=== PATIENT | male | born 1965 ===

== ENCOUNTER 2016-10-15 10:15 | Inpatient (IN) | payer MEDICARE, MEDICAID ==
[2016-10-15 10:16] VITALS: BMI 25.0
--- NOTE | 2016-10-15 11:15 | ED PDOC ---
HPI: General Adult Time Seen by Provider: 10/15/16 10:30 Chief Complaint (Nursing): Weakness/Neurological Deficit Chief Complaint (Provider): generalized weakness History Per: Patient History/Exam Limitations: no limitations Onset/Duration Of Symptoms: Days (x 3) Have you had recent travel within the past 21 days to any of the following countries: [place], [place], [place] or [place]?: No Additional Complaint(s): Akash Appiah is a 51 year old male, with a previous medical history of diabetes, anemia, nephrocalcinosis and hypertension, who presents to the ED for the evaluation of generalized body aches associated with light sensitivity and fevers of 102.8 after receiving dialysis 3 days ago. Patient reports having a herograft inserted 7 days prior (Tuesday) and started dialysis 3 days after ( Tuesday) insertion. Patient denies any chest pain, nausea or vomiting. PMD: Dr. Phillip Past Medical History Reviewed: Historical Data, Nursing Documentation, Vital Signs Vital Signs: Last Vital Signs Temp 99.8 F H 10/15/16 10:20 Pulse 106 H 10/15/16 10:20 Resp 20 10/15/16 10:20 BP 142/83 10/15/16 10:20 Pulse Ox 97 10/15/16 11:24 - Medical History PMH: Anemia, Anxiety, Arthritis, Atrial Fibrillation, Cardia Arrhythmia, Depression, Diabetes (type II), Gastritis, GERD, HTN, Hypercholesterolemia, Kidney Stones, Osteoporosis, Peripheral Edema, End Stage Renal Disease, Chronic Kidney Disease, Sleep Apnea Denies: CHF, Fractures, Hypothyroidism - Surgical History Surgical History: Appendectomy, Endoscopy - Family History Family History: States: Hypertension - Home Medications Home Medications: Ambulatory Orders Medication Instructions Recorded Acetaminophen/Oxycodone Hydr 1 tab PO Q6H PRN 05/24/16 [Percocet 10/325 mg Tab] Ammonium Lactate 12% [Lac-Hydrin 1 appl TOP BID 05/24/16 12% Lotion (225 g)] Apixaban [Eliquis] 2.5 mg PO BID 05/24/16 Atorvastatin [Lipitor] 20 mg PO HS 05/24/16 Clopidogrel [Plavix] 75 mg PO DAILY 05/24/16 Esomeprazole Magnesium [Nexium] 40 mg PO DAILY 05/24/16 Febuxostat [Uloric] 40 mg PO DAILY 05/24/16 Megestrol Acetate [Megace] 5 ml PO Q6H 05/24/16 Minoxidil 5 mg PO BID 05/24/16 [id number] Ethyl Esters 1 GM 1 gm PO BID 05/24/16 [Lovaza] Sevelamer Carbonate [Renvela] 2,400 mg PO TID 05/24/16 Tamsulosin [Flomax] 0.4 mg PO DAILY 05/24/16 Vitamin B Complex/Vit C/Folic 1 tab PO DAILY 05/24/16 [Nephro-Garcia] Alprazolam [Xanax] 0.5 mg PO TID PRN 07/19/16 Insulin Aspart, Recombinant 5 unit SC TID 07/19/16 [Novolog] Insulin Detemir [Levemir] 20 unit SC HS 07/19/16 PARoxetine [Paxil] 10 mg PO DAILY 07/19/16 Ropinirole HCl [Requip] 4 mg PO BID 10/15/16 Verapamil HCl [Verapamil Sr] 120 mg PO DAILY 10/15/16 - Allergies Allergies/Adverse Reactions: Allergies Allergy/AdvReac Type Severity Reaction Status Date / Time hydromorphone HCl Allergy WHEEZING Verified 12/31/15 18:30 [From Dilaudid] propoxyphene napsylate Allergy RASH Verified 12/31/15 18:30 [From Darvocet-N] vancomycin AdvReac RASH Verified 12/31/15 18:30 Review of Systems ROS Statement: Except As Marked, All Systems Reviewed And Found Negative Constitutional: Positive for: Fever, Other (body aches) Gastrointestinal: Negative for: Nausea, Vomiting, Diarrhea Physical Exam - Reviewed Nursing Documentation Reviewed: Yes Vital Signs Reviewed: Yes - Physical Exam Appears: Positive for: Well, Non-toxic, No Acute Distress Head Exam: Positive for: ATRAUMATIC, NORMAL INSPECTION, NORMOCEPHALIC Skin: Positive for: Normal Color, Warm, Dry Neck: Positive for: Normal, Painless ROM, Supple Cardiovascular/Chest: Positive for: Murmur (S1 S2 3/6) Respiratory: Positive for: CNT, Normal Breath Sounds Gastrointestinal/Abdominal: Positive for: Normal Exam, Bowel Sounds, Soft. Negative for: Tenderness Extremity: Positive for: Normal ROM, Tenderness, Other (left arm at graft site mildly erythematous and tender to touc. Discharge noted. ) Neurologic/Psych: Positive for: Alert, Oriented - Laboratory Results Result Diagrams: 10/15/16 11:31 10/15/16 11:31 - ECG O2 Sat by Pulse Oximetry: 97 (RA) Pulse Ox Interpretation: Normal Medical Decision Making Medical Decision Making: Initial Impression: wound infection r/o sepsis Initial Plan: * VBG * EKG * magnesium * phosphorous * labs * partial thromboplastin time * prothrombin time * CXR * Toradol 30mg IV * blood culture * urine culture * monitoring manager cont * vital signs Q15 min * influenza A B * urinalysis * reevaluation Scribe Attestation: Documented by Kimberley Ortiz, acting as a scribe for Marcia Madsen MD. Provider Scribe Attestation: All medical record entries made by the Scribe were at my direction and personally dictated by me. I have reviewed the chart and agree that the record accurately reflects my personal performance of the history, physical exam, medical decision making, and the department course for this patient. I have also personally directed, reviewed, and agree with the discharge instructions and disposition. Disposition - Clinical Impression Clinical Impression: Fever, AV shunt malfunction - Patient ED Disposition Is Patient to be Admitted: Yes Doctor Will See Patient In The: Hospital - Disposition Disposition: Transfer of Care Disposition Time: 13:30 Condition: FAIR - Pt Status Changed To: Hospital Disposition Of: Inpatient - Admit Certification Admit to Inpatient:: After my assessment, the patient will require hospitalization for at least two midnights. This is because of the severity of symptoms shown, intensity of services needed, and/or the medical risk in this patient being treated as an outpatient. - POA Present On Arrival: None
[2016-10-15 11:42] LABS: BASO # 0.1 K/uL (0.0-0.2); BASO % 0.6 % (0.0-2.0); EOS # 0.3 K/uL (0.0-0.7); EOS % 2.5 % (0.0-4.0); HEMATOCRIT 31.5 % (35.0-51.0); LYMPH # 0.5 K/uL (1.0-4.3); LYMPH % 5.2 % (20.0-40.0); MEAN CELL VOLUME 82.7 fl (80.0-94.0); MEAN CORPUSCULAR HEMOGLOBIN 26.7 pg (27.0-31.0); MEAN CORPUSCULAR HGB CONC 32.3 g/dL (33.0-37.0); MEAN PLATELET VOLUME 7.8 fl (7.2-11.7); MONO # 1.2 K/uL (0.0-0.8); NEUT % 79.7 % (50.0-75.0); PLATELET COUNT 263 K/uL (130-400); RED CELL DISTRIBUTION WIDTH 15.3 % (11.5-14.5)
[2016-10-15] MEDS ORDERED: Ampicillin/Sulbactam 3 GM in Sodium Chloride 0.9% 100 ML IVPB ONE (11:42)
[2016-10-15 11:58] LABS: BILIRUBIN,TOTAL 1.5 mg/dl (0.2-1.3); CALCIUM 9.4 mg/dL (8.4-10.2); MAGNESIUM 2.1 MG/DL (1.6-2.3); PHOSPHOROUS 5.3 mg/dl (2.5-4.5); POTASSIUM 4.6 MMOL/L (3.6-5.0); TOTAL PROTEIN 7.3 G/DL (6.3-8.2)
[2016-10-15 11:59] LABS: VENOUS BLOOD GAS PCO2 46 mmHg (40-60); VENOUS BLOOD PH 7.37 (7.32-7.43)
[2016-10-15 12:04] LABS: PARTIAL THROMBOPLASTIN TIME 34.1 Seconds (25.6-37.1)
[2016-10-15 12:22] LABS: EOSINOPHIL 2 % (0-7); NEUTROPHIL 81 % (42-75); TOTAL CELLS COUNTED 100
--- NOTE | 2016-10-15 12:29 | RAD ---
HISTORY: Sepsis Patient COMPARISON: 05/24/2016 FINDINGS: LUNGS: No active pulmonary disease. PLEURA: No significant pleural effusion identified, no pneumothorax apparent. CARDIOVASCULAR: Right subclavian/upper extremity vascular stent. Left tunneled central venous dialysis catheter. OSSEOUS STRUCTURES: No significant abnormalities. VISUALIZED UPPER ABDOMEN: Normal. OTHER FINDINGS: None. IMPRESSION: No active disease.
--- NOTE | 2016-10-15 15:10 | CP.PCM.CON ---
History of Present Illness - History of Present Illness History of Present Illness: Patient is a 51 year-old man well known to Vascular Surgery service. Patient has an extremely challenging dialysis access situation and Dr. Julien placed Hero dialysis catheter 7 days prior to this evaluation. Patient went home the day after surgery and did quite well during first three days post-operatively. On post-operative day four patient developed fever, generalized malaise, full body ache and loss of appetite. He was dialyzed on post-op day 5 via HeRo graft which functioned very well. He received a dose of antibiotics during dialysis. However, patient still remained ill with abovementioned symptoms and today self- refereed to the ED at [facility]. Review of Systems - Review of Systems Systems not reviewed;Unavailable: Acuity of Condition (patient is in overall stable contition), Unstable Vital Signs, Respiratory Distress, Dementia, Altered Mental Status, Intoxicated, Uncooperative, Psychotic, Intubated, Language Barrier, Other - Constitutional Constitutional: As Per HPI, Headache, Malaise, Weakness (patient has improved appetite today) - EENT Eyes: absent: Discharge, Pain Ears: absent: Decreased Hearing, Abnormal Hearing, Dizziness Nose/Mouth/Throat: absent: Epistaxis, Nasal Discharge, Post Nasal Drip, Change in Voice - Cardiovascular Cardiovascular: absent: Chest Pain, Chest Pain at Rest, Diaphoresis, Dyspnea, Leg Edema - Respiratory Respiratory: absent: Cough, Hemoptysis, Wheezing, Chest Congestion - Gastrointestinal Gastrointestinal: absent: Coffee Ground Emesis, Diarrhea, Hematemesis, Melena, Nausea, Vomiting - Genitourinary Genitourinary: absent: Flank Pain, Pyuria - Musculoskeletal Musculoskeletal: Muscle Weakness. absent: Joint Swelling, Numbness, Tingling - Integumentary Integumentary: absent: New Lesions, Skin Pain, Skin Ulcer, Sores, Unusual Bruising, Wounds - Neurological Neurological: absent: Abnormal Speech, Confusion, Dizziness, Numbness, Focal Weakness, Sensory Deficit, Syncope - Psychiatric Psychiatric: absent: Anxiety, Hopelessness - Endocrine Endocrine: absent: Excessive Sweating, Flushing, Polydipsia - Hematologic/Lymphatic Hematologic: absent: Easy Bruising Past Patient History - Infectious Disease Hx of Infectious Diseases: None - Tetanus Immunizations Tetanus Immunization: Unknown - Past Medical History & Family History Past Medical History?: Yes - Past Social History Smoking Status: Never Smoked - CARDIAC Hx Atrial Fibrillation: Yes Hx Cardia Arrhythmia: Yes Hx Congestive Heart Failure: No Hx Hypercholesterolemia: Yes Hx Hypertension: Yes Hx Peripheral Edema: Yes - PULMONARY Hx Sleep Apnea: Yes - NEUROLOGICAL Hx Neurological Disorder: No Other/Comment: Hx Diabetic neuropathy - HEENT Hx HEENT Problems: No Hx Cataracts: Yes (Bilateral) Hx Epistaxis: Yes - RENAL Hx Chronic Kidney Disease: Yes Hx Dialysis: Yes Hx Kidney Stones: Yes - ENDOCRINE/METABOLIC Hx Hypothyroidism: No - HEMATOLOGICAL/ONCOLOGICAL Hx Anemia: Yes - INTEGUMENTARY Hx Dermatological Problems: No Hx Cellulitis: Yes Other/Comment: Pt. had all toenails 10 toenails removed at the age of 14 due to pain - MUSCULOSKELETAL/RHEUMATOLOGICAL Hx Arthritis: Yes Hx Fractures: No Hx Osteoporosis: Yes - GASTROINTESTINAL Hx Gastritis: Yes - GENITOURINARY/GYNECOLOGICAL Hx Genitourinary Disorders: No Hx Prostate Problems: Yes Hx Urinary Tract Infection: Yes Other/Comment: Anuric due to kidney condition, confirmed by mother patient has no kidneys - PSYCHIATRIC Hx Anxiety: Yes Hx Depression: Yes - SURGICAL HISTORY Hx Amputation: Yes Hx Appendectomy: Yes - ANESTHESIA Hx Anesthesia: Yes Hx Anesthesia Reactions: Yes (AWAKE DURING THE SURGERY) Hx Malignant Hyperthermia: No Meds Allergies/Adverse Reactions: Allergies Allergy/AdvReac Type Severity Reaction Status Date / Time hydromorphone HCl Allergy WHEEZING Verified 12/31/15 18:30 [From Dilaudid] propoxyphene napsylate Allergy RASH Verified 12/31/15 18:30 [From Darvocet-N] vancomycin AdvReac RASH Verified 12/31/15 18:30 Physical Exam - Constitutional Appears: Non-toxic, No Acute Distress - Head Exam Head Exam: NORMOCEPHALIC - Eye Exam Eye Exam: EOMI, Normal appearance, PERRL Pupil Exam: NORMAL ACCOMODATION - ENT Exam ENT Exam: Mucous Membranes Moist - Neck Exam Neck exam: Positive for: Normal Inspection - Respiratory Exam Respiratory Exam: Clear to Auscultation Bilateral, NORMAL BREATHING PATTERN - Cardiovascular Exam Cardiovascular Exam: Tachycardia, REGULAR RHYTHM - GI/Abdominal Exam GI & Abdominal Exam: Normal Bowel Sounds, Soft. absent: Distended, Firm, Rebound, Rigid, Tenderness - Extremities Exam Extremities exam: Positive for: normal inspection - Expanded Upper Extremities Exam Left Vascular exam: absent: vascular compromise (upper and lower extremities show no obvious signs of ischemia at present. ) - Back Exam Back exam: NORMAL INSPECTION - Neurological Exam Neurological exam: Alert, CN II-XII Intact, Oriented x3 - Psychiatric Exam Psychiatric exam: Normal Affect, Normal Mood - Skin Skin Exam: Dry, Intact, Normal Color, Warm Results - Vital Signs Recent Vital Signs: Last Vital Signs Temp 99.8 F H 10/15/16 10:20 Pulse 106 H 10/15/16 10:20 Resp 20 10/15/16 10:20 BP 142/83 10/15/16 10:20 Pulse Ox 97 10/15/16 14:03 - Labs Result Diagrams: 10/15/16 11:31 10/15/16 11:31 Assessment & Plan - Assessment and Plan (Free Text) Assessment: Patient is 7 days post left HeRo dialysis graft placement. He is admitted with clinical signs and symptoms suggestive of infection. He received a dose of antibiotics at dialysis two days ago and overall felt better today than last few days. He is afebrile at present with normal WBC and is in overall stable condition with stable vital signs. Left upper extremity dialysis graft appears open and there is no clinically relevant arterial steal in the left hand. There are no obvious clinical signs to ascertain dialysis graft infection with certainty. Close observation is warranted for now. Plan: Admit to Medicine service with Vascular Surgery consulting. Continue antibiotics and sourse of possible infection work-up per Medical team. HeRo catheter can be used for dialysis for now. Close observation of the left arm dialysis graft by Vascular Surgery. - Date & Time Date: 10/15/16 Time: 15:04
[2016-10-15 15:50] LABS: VENOUS BLOOD GAS BASE EXCESS 1.2 mmol/L (0.0-2.0); VENOUS BLOOD GAS PCO2 51 mmHg (40-60); VENOUS BLOOD PH 7.34 (7.32-7.43)
[2016-10-15] MEDS ORDERED: Ampicillin/Sulbactam 3 GM in Sodium Chloride 0.9% 100 ML IVPB SCH (16:00)
[2016-10-15] MEDS: Simethicone 80 mg Chewtab PO PRN (23:44)
[2016-10-16] MEDS: Ampicillin/Sulbactam 1.5 GM in Sodium Chloride 0.9% 100 ML IVPB SCH ×2 (00:05→09:08)
[2016-10-16] MEDS ORDERED: DiphenhydrAMINE 50 mg/ml Inj ONE (06:12)
[2016-10-16] MEDS ORDERED: methylPREDNISolone 125 MG in Sodium Chloride 0.9% 50 ML IVPB STA (06:13)
[2016-10-16] MEDS ORDERED: DiphenhydrAMINE 50 mg/ml Inj IVP STA (06:13)
--- NOTE | 2016-10-16 07:51 | CP.PCM.PN ---
Subjective - Date & Time of Evaluation Date of Evaluation: 10/16/16 Time of Evaluation: 07:49 - Subjective Subjective: Vascular Sx: Dr Cuevas Pt S&E. NAEO. Remains afebrile, VSS. Pt denies any pain, fevers, chills, sob or chest pain. Tolerating diet. Blood cx negative to date. Objective - Vital Signs/Intake and Output Vital Signs (last 24 hours): Temp Pulse Resp BP Pulse Ox 97.7 F 89 20 144/78 97 10/16/16 05:42 10/16/16 05:42 10/16/16 05:42 10/16/16 05:42 10/16/16 05:42 - Medications Medications: Current Medications Alprazolam (Xanax) 0.5 mg PO TID PRN PRN Reason: Anxiety Apixaban (Eliquis) 2.5 mg PO BID [facility] PRN Reason: Protocol Last Admin: 10/15/16 22:20 Dose: 2.5 mg Atorvastatin Calcium (Lipitor) 20 mg PO HS [facility] Last Admin: 10/15/16 22:20 Dose: 20 mg Clopidogrel Bisulfate (Plavix) 75 mg PO DAILY [facility] Home Med (Febuxostat [Uloric]) 40 mg PO DAILY [facility] Ampicillin Sodium/Sulbactam (Sodium 1.5 gm/ Sodium Chloride) 100 mls @ 100 mls/ hr IVPB Q8 [facility] Last Admin: 10/16/16 00:05 Dose: 100 mls/hr Lactic Acid (Lac-Hydrin 12% Lotion (225 G)) 1 applic TOP BID [facility] Megestrol Acetate (Megace) 200 mg PO DAILY [facility] Minoxidil (Minoxidil) 5 mg PO BID [facility] Owafp-[id number]-Qsxd Ethyl Esters (Lovaza) 1 gm PO BID [facility] Pantoprazole Sodium (Protonix Ec Tab) 40 mg PO DAILY [facility] Paroxetine HCl (Paxil) 10 mg PO DAILY [facility] Sevelamer HCl (Renagel) 2,400 mg PO TIDWM [facility] Simethicone (Mylicon Chew Tab) 80 mg PO PCHS PRN PRN Reason: Heartburn Last Admin: 10/15/16 23:44 Dose: 80 mg Tamsulosin HCl (Flomax) 0.4 mg PO DAILY [facility] Verapamil HCl (Calan Sr Capsule) 120 mg PO DAILY [facility] Vitamin B Complex/Vit C/Folic Acid (Nephro-Garcia) 1 tab PO DAILY PATRIZIA - Labs Labs: PT 14.3 Seconds (9.8-13.1) H 10/15/16 11:31 INR 1.3 (0.9-1.2) H 10/15/16 11:31 APTT 34.1 Seconds (25.6-37.1) 10/15/16 11:31 - Constitutional Appears: Non-toxic, No Acute Distress - Head Exam Head Exam: NORMAL INSPECTION - Respiratory Exam Respiratory Exam: absent: Accessory Muscle Use, Respiratory Distress - Cardiovascular Exam Cardiovascular Exam: REGULAR RHYTHM - GI/Abdominal Exam GI & Abdominal Exam: Soft. absent: Distended, Tenderness - Neurological Exam Neurological Exam: Alert, Awake, Oriented x3 - Psychiatric Exam Psychiatric exam: Normal Affect, Normal Mood - Skin Skin Exam: Normal Color, Warm Assessment and Plan - Assessment and Plan (Free Text) Assessment: 51M w/ ESRD: Sx consulted for possible catheter infection Plan: blood cx negative thus far afebrile, no leukocytosis catheter infection unlikely will cont to follow will d/w Dr Mason Spann, DO, PGY2
--- NOTE | 2016-10-16 08:07 | CP.PCM.CON ---
History of Present Illness - History of Present Illness History of Present Illness: REASONS FOR CONSULT : ESRD ON HD M W F ANEMIA OF CKD ALL EMR REVIEWED .. PT WAS SEEN AND EXAMINED PT IS WELL KNOWN TO ME SINCE THE LAST CENTURY Chief Complaint (Provider): generalized weakness History Per: Patient History/Exam Limitations: no limitations Onset/Duration Of Symptoms: Days (x 3) Have you had recent travel within the past 21 days to any of the following countries: [place], [place], [place] or [place]?: No Additional Complaint(s): Akash Appiah is a 51 year old male, with a previous medical history of diabetes, anemia, nephrocalcinosis and hypertension, who presents to the ED for the evaluation of generalized body aches associated with light sensitivity and fevers of 102.8 after receiving dialysis 3 days ago. Patient reports having a herograft inserted 7 days prior (Tuesday) and started dialysis 3 days after ( Tuesday) insertion. Patient denies any chest pain, nausea or vomiting. Past Patient History - Infectious Disease Hx of Infectious Diseases: None - Tetanus Immunizations Tetanus Immunization: Unknown - Past Medical History & Family History Past Medical History?: Yes - Past Social History Smoking Status: Never Smoked - CARDIAC Hx Atrial Fibrillation: Yes Hx Cardia Arrhythmia: Yes Hx Congestive Heart Failure: No Hx Hypercholesterolemia: Yes Hx Hypertension: Yes Hx Peripheral Edema: Yes - NEUROLOGICAL Hx Neurological Disorder: No Other/Comment: Hx Diabetic neuropathy - HEENT Hx HEENT Problems: No Hx Cataracts: Yes (Bilateral) Hx Epistaxis: Yes - RENAL Hx Chronic Kidney Disease: Yes Hx Dialysis: Yes Hx Kidney Stones: Yes - ENDOCRINE/METABOLIC Hx Diabetes Mellitus Type 2: Yes Hx Hypothyroidism: No - HEMATOLOGICAL/ONCOLOGICAL Hx Anemia: Yes - INTEGUMENTARY Hx Dermatological Problems: No Hx Cellulitis: Yes Other/Comment: Pt. had all toenails 10 toenails removed at the age of 14 due to pain - MUSCULOSKELETAL/RHEUMATOLOGICAL Hx Arthritis: Yes Hx Falls: Yes Hx Fractures: No Hx Osteoarthritis: Yes Hx Osteoporosis: Yes - GASTROINTESTINAL Hx Gastritis: Yes - GENITOURINARY/GYNECOLOGICAL Hx Genitourinary Disorders: No Hx Prostate Problems: Yes Hx Urinary Tract Infection: Yes Other/Comment: Anuric due to kidney condition, confirmed by mother patient has no kidneys - PSYCHIATRIC Hx Anxiety: Yes Hx Depression: Yes Hx Substance Use: No - SURGICAL HISTORY Hx Amputation: Yes Hx Appendectomy: Yes - ANESTHESIA Hx Anesthesia: Yes Hx Anesthesia Reactions: Yes (AWAKE DURING THE SURGERY) Hx Malignant Hyperthermia: No Meds Allergies/Adverse Reactions: Allergies Allergy/AdvReac Type Severity Reaction Status Date / Time hydromorphone HCl Allergy WHEEZING Verified 12/31/15 18:30 [From Dilaudid] ketorolac [From Toradol] Allergy RASH Verified 10/16/16 06:32 propoxyphene napsylate Allergy RASH Verified 12/31/15 18:30 [From Darvocet-N] vancomycin AdvReac RASH Verified 12/31/15 18:30 - Medications Medications: Current Medications Alprazolam (Xanax) 0.5 mg PO TID PRN PRN Reason: Anxiety Apixaban (Eliquis) 2.5 mg PO BID [facility] PRN Reason: Protocol Last Admin: 10/15/16 22:20 Dose: 2.5 mg Atorvastatin Calcium (Lipitor) 20 mg PO HS [facility] Last Admin: 10/15/16 22:20 Dose: 20 mg Clopidogrel Bisulfate (Plavix) 75 mg PO DAILY [facility] Home Med (Febuxostat [Uloric]) 40 mg PO DAILY [facility] Ampicillin Sodium/Sulbactam (Sodium 1.5 gm/ Sodium Chloride) 100 mls @ 100 mls/ hr IVPB Q8 [facility] Last Admin: 10/16/16 00:05 Dose: 100 mls/hr Lactic Acid (Lac-Hydrin 12% Lotion (225 G)) 1 applic TOP BID [facility] Megestrol Acetate (Megace) 200 mg PO DAILY [facility] Minoxidil (Minoxidil) 5 mg PO BID [facility] [id number] Ethyl Esters (Lovaza) 1 gm PO BID [facility] Pantoprazole Sodium (Protonix Ec Tab) 40 mg PO DAILY [facility] Paroxetine HCl (Paxil) 10 mg PO DAILY [facility] Sevelamer HCl (Renagel) 2,400 mg PO TIDWM [facility] Simethicone (Mylicon Chew Tab) 80 mg PO PCHS PRN PRN Reason: Heartburn Last Admin: 10/15/16 23:44 Dose: 80 mg Tamsulosin HCl (Flomax) 0.4 mg PO DAILY [facility] Verapamil HCl (Calan Sr Capsule) 120 mg PO DAILY [facility] Vitamin B Complex/Vit C/Folic Acid (Nephro-Garcia) 1 tab PO DAILY [facility] Results - Vital Signs Recent Vital Signs: Last Vital Signs Temp 97.7 F 10/16/16 05:42 Pulse 89 10/16/16 05:42 Resp 20 10/16/16 05:42 BP 144/78 10/16/16 05:42 Pulse Ox 97 10/16/16 05:42 - Labs Result Diagrams: 10/15/16 11:31 10/15/16 11:31 Labs: Laboratory Results - last 24 hr 10/15/16 10/16/16 15:51 05:18 pO2 28 L VBG pH 7.34 VBG pCO2 51 VBG HCO3 25.2 VBG Total CO2 29.1 H VBG O2 Sat (Calc) 66.9 H VBG Base Excess 1.2 VBG Potassium 4.7 Sodium 132.0 Chloride 98.0 Glucose 121 H Lactate 1.2 FiO2 21.0 POC Glucose (mg/dL) 128 H Venous Blood Potassium 4.7 Assessment & Plan - Assessment and Plan (Free Text) Assessment: ESRD ON HD M W F .. WILL C/O ANEMIA OF CKD .. H/H STABLE CAME IN WITH FEVERE AND WEAKNESS .. PT IS S/P HERO HD GRAFT ON L ARE 7 DAYS AGO .. APEARS INFECTED WITH DRAINAGE FROM IT C/O IVAB PER ID ..PT RECIEVED ANCEF 2 G AND GENTA 80 MG AT HIS HD [facility]ENTER 3 DAYS AGO AFTER B/C X 2 WERE DONE - Date & Time Date: 10/15/16 Time: 13:00
[2016-10-16] MEDS: Verapamil SR 120 MG CApsule PO SCH (09:04)
[2016-10-16] MEDS: Omega-3-Acid Ethyl Esters 1 GM Cap PO SCH ×2 (09:04→17:26)
[2016-10-16] MEDS: Multivitamin Vitamin B Complex (Nephro-Vite) Tab PO SCH (09:05)
[2016-10-16] MEDS: Pantoprazole 40 mg EC Tab PO SCH (09:05)
[2016-10-16] MEDS: Megestrol Acetate 40 mg/ml Cup PO SCH (09:06)
[2016-10-16] MEDS: Simethicone 80 mg Chewtab PO PRN ×2 (12:33→20:11)
--- NOTE | 2016-10-16 12:45 | CP.PCM.CON ---
History of Present Illness - History of Present Illness History of Present Illness: Infectious Disease Consultation Note- asked to see this patient at the request of for fever . HPI- Patient is a 51 year old male with multiple medical conditions including ESRD on HD, DM II, right TMA amputation who was admitetd with c/o weakness, bodyaches and fever. Pt. states a week ago he had left HD Hero catheter placement and few days after that he developed fever at dialysis center. He states prior to this catheter he had left chest HD tunnel catheter for his HD and that was removed the same day this HD graft was placed. He denies any duischargef rom around the graft site but does have some redness around it. He states he feels much better today sine antibiotics were initiated yesterday. Upon further questioning pt. explains he is not sure if he has allergy to vancomycin bc he has had it in the past and has done ok with it but once he was given vanco and darvocet at same time and had some itching and he is not sure if it was from darvocet or vanco. currently pt. denies any Fever or c hills, denies any MICHAEL, denies any cough or sob, denies any n/v, denies any diarrhea, denies any abd. pain, denies any chest pain. Review of Systems - Review of Systems Review of Systems: ROS- had fever prior to admission but denies any fever or any chills now, denies any MICHAEL, denies any cough, denies any sob, denies any sob, denies any chest pain, denies any abd pain, denies any n/v, denies any diarrhea has some redness around the left arm HD graft but denies any discharge Past Patient History - Infectious Disease Hx of Infectious Diseases: None - Tetanus Immunizations Tetanus Immunization: Unknown - Past Medical History & Family History Past Medical History?: Yes - Past Social History Smoking Status: Never Smoked - CARDIAC Hx Atrial Fibrillation: Yes Hx Cardia Arrhythmia: Yes Hx Congestive Heart Failure: No Hx Hypercholesterolemia: Yes Hx Hypertension: Yes Hx Peripheral Edema: Yes - NEUROLOGICAL Hx Neurological Disorder: No Other/Comment: Hx Diabetic neuropathy - HEENT Hx HEENT Problems: No Hx Cataracts: Yes (Bilateral) Hx Epistaxis: Yes - RENAL Hx Chronic Kidney Disease: Yes Hx Dialysis: Yes Hx Kidney Stones: Yes - ENDOCRINE/METABOLIC Hx Diabetes Mellitus Type 2: Yes Hx Hypothyroidism: No - HEMATOLOGICAL/ONCOLOGICAL Hx Anemia: Yes - INTEGUMENTARY Hx Dermatological Problems: No Hx Cellulitis: Yes Other/Comment: Pt. had all toenails 10 toenails removed at the age of 14 due to pain - MUSCULOSKELETAL/RHEUMATOLOGICAL Hx Arthritis: Yes Hx Falls: Yes Hx Fractures: No Hx Osteoarthritis: Yes Hx Osteoporosis: Yes - GASTROINTESTINAL Hx Gastritis: Yes - GENITOURINARY/GYNECOLOGICAL Hx Genitourinary Disorders: No Hx Prostate Problems: Yes Hx Urinary Tract Infection: Yes Other/Comment: Anuric due to kidney condition, confirmed by mother patient has no kidneys - PSYCHIATRIC Hx Anxiety: Yes Hx Depression: Yes Hx Substance Use: No - SURGICAL HISTORY Hx Amputation: Yes Hx Appendectomy: Yes - ANESTHESIA Hx Anesthesia: Yes Hx Anesthesia Reactions: Yes (AWAKE DURING THE SURGERY) Hx Malignant Hyperthermia: No Meds Allergies/Adverse Reactions: Allergies Allergy/AdvReac Type Severity Reaction Status Date / Time hydromorphone HCl Allergy WHEEZING Verified 12/31/15 18:30 [From Dilaudid] ketorolac [From Toradol] Allergy RASH Verified 10/16/16 06:32 propoxyphene napsylate Allergy RASH Verified 12/31/15 18:30 [From Darvocet-N] vancomycin AdvReac RASH Verified 12/31/15 18:30 - Medications Medications: Current Medications Alprazolam (Xanax) 0.5 mg PO TID PRN PRN Reason: Anxiety Apixaban (Eliquis) 2.5 mg PO BID [facility]S [facility] 234 BEDS AT THE [facility] PRN Reason: Protocol Last Admin: 10/16/16 09:05 Dose: 2.5 mg Ascorbic Acid (Vitamin C 500 Mg Tab) 500 mg PO DAILY COUNTS INCLUDE 234 BEDS AT THE [facility] Last Admin: 10/16/16 12:37 Dose: 500 mg Atorvastatin Calcium (Lipitor) 20 mg PO HS COUNTS INCLUDE 234 BEDS AT THE [facility] Last Admin: 10/15/16 22:20 Dose: 20 mg Clopidogrel Bisulfate (Plavix) 75 mg PO DAILY COUNTS INCLUDE 234 BEDS AT THE [facility] Last Admin: 10/16/16 09:05 Dose: 75 mg Home Med (Febuxostat [Uloric]) 40 mg PO DAILY COUNTS INCLUDE 234 BEDS AT THE [facility] Ampicillin Sodium/Sulbactam (Sodium 1.5 gm/ Sodium Chloride) 100 mls @ 100 mls/ hr IVPB Q8 COUNTS INCLUDE 234 BEDS AT THE [facility] Last Admin: 10/16/16 09:08 Dose: 100 mls/hr Lactic Acid (Lac-Hydrin 12% Lotion (225 G)) 1 applic TOP BID COUNTS INCLUDE 234 BEDS AT THE [facility] Last Admin: 10/16/16 09:08 Dose: 1 applic Megestrol Acetate (Megace) 200 mg PO DAILY COUNTS INCLUDE 234 BEDS AT THE [facility] Last Admin: 10/16/16 09:06 Dose: 200 mg Minoxidil (Minoxidil) 5 mg PO BID COUNTS INCLUDE 234 BEDS AT THE [facility] Last Admin: 10/16/16 09:07 Dose: Not Given [id number]-7-[id number] Ethyl Esters (Lovaza) 1 gm PO BID COUNTS INCLUDE 234 BEDS AT THE [facility] Last Admin: 10/16/16 09:04 Dose: 1 gm Pantoprazole Sodium (Protonix Ec Tab) 40 mg PO DAILY COUNTS INCLUDE 234 BEDS AT THE [facility] Last Admin: 10/16/16 09:05 Dose: 40 mg Paroxetine HCl (Paxil) 10 mg PO DAILY COUNTS INCLUDE 234 BEDS AT THE [facility] Last Admin: 10/16/16 09:07 Dose: 10 mg Sevelamer HCl (Renagel) 2,400 mg PO TIDWM COUNTS INCLUDE 234 BEDS AT THE [facility] Last Admin: 10/16/16 09:05 Dose: 2,400 mg Simethicone (Mylicon Chew Tab) 80 mg PO PCHS PRN PRN Reason: Heartburn Last Admin: 10/16/16 12:33 Dose: 80 mg Tamsulosin HCl (Flomax) 0.4 mg PO DAILY COUNTS INCLUDE 234 BEDS AT THE [facility] Last Admin: 10/16/16 09:05 Dose: 0.4 mg Tramadol HCl (Ultram) 50 mg PO Q6 PRN PRN Reason: pain level 4-7 Verapamil HCl (Calan Sr Capsule) 120 mg PO DAILY COUNTS INCLUDE 234 BEDS AT THE [facility] Last Admin: 10/16/16 09:04 Dose: 120 mg Vitamin B Complex/Vit C/Folic Acid (Nephro-Garcia) 1 tab PO DAILY COUNTS INCLUDE 234 BEDS AT THE [facility] Last Admin: 10/16/16 09:05 Dose: 1 tab Physical Exam - Constitutional Appears: Non-toxic, No Acute Distress - Head Exam Head Exam: ATRAUMATIC - Eye Exam Eye Exam: EOMI - ENT Exam ENT Exam: Normal Oropharynx - Neck Exam Neck exam: Positive for: Full Rom - Respiratory Exam Respiratory Exam: Clear to Auscultation Bilateral, NORMAL BREATHING PATTERN - Cardiovascular Exam Cardiovascular Exam: RRR, +S1, +S2 - GI/Abdominal Exam GI & Abdominal Exam: Normal Bowel Sounds, Soft Additional comments: NT, ND - Extremities Exam Additional comments: left arm HD graft site with slight erythema around site, no discharge not tender right TMA site clean /dry/ intact no edema b/l LE - Neurological Exam Neurological exam: Alert, Oriented x3 Results - Vital Signs Recent Vital Signs: Last Vital Signs Temp 98.7 F 10/16/16 08:00 Pulse 91 H 10/16/16 08:00 Resp 18 10/16/16 08:00 BP 112/73 10/16/16 08:00 Pulse Ox 95 10/16/16 08:00 - Labs Result Diagrams: 10/15/16 11:31 10/15/16 11:31 Labs: Laboratory Results - last 24 hr 10/15/16 10/16/16 10/16/16 15:51 05:18 11:37 pO2 28 L VBG pH 7.34 VBG pCO2 51 VBG HCO3 25.2 VBG Total CO2 29.1 H VBG O2 Sat (Calc) 66.9 H VBG Base Excess 1.2 VBG Potassium 4.7 Sodium 132.0 Chloride 98.0 Glucose 121 H Lactate 1.2 FiO2 21.0 POC Glucose (mg/dL) 128 H 246 H Venous Blood Potassium 4.7 Laboratory Results - last 72 hr 10/15/16 10/15/16 10/15/16 10:33 11:25 11:31 WBC 10.0 D RBC 3.81 L Hgb 10.2 L Hct 31.5 L MCV 82.7 D MCH 26.7 L MCHC 32.3 L RDW 15.3 H Plt Count 263 MPV 7.8 Neut % (Auto) 79.7 H Lymph % (Auto) 5.2 L [place] % (Auto) 12.0 H Eos % (Auto) 2.5 Baso % (Auto) 0.6 Neut # 8.0 H Lymph # 0.5 L [place] # 1.2 H Eos # 0.3 Baso # 0.1 Neutrophils % (Manual) 81 H Lymphocytes % (Manual) 5 L Monocytes % (Manual) 12 H Eosinophils % (Manual) 2 Platelet Estimate Normal Anisocytosis (manual) Slight PT INR APTT pO2 36 VBG pH 7.37 VBG pCO2 46 VBG HCO3 25.3 VBG Total CO2 28.0 VBG O2 Sat (Calc) 81.4 H VBG Base Excess 1.0 VBG Potassium 4.5 A-a O2 Difference 56.0 Sodium 131.0 L Chloride 97.0 L Glucose 141 H Lactate 1.0 FiO2 21.0 Crit Value Called To Dr margoth leong Crit Value Called By 15 Crit Value Read Back Y Blood Gas Notified Time 1158 Potassium Carbon Dioxide Anion Gap BUN Creatinine Est GFR ( Amer) Est GFR (Non-Af Amer) POC Glucose (mg/dL) 161 H Random Glucose Calcium Phosphorus Magnesium Total Bilirubin AST ALT Alkaline Phosphatase Total Protein Albumin Globulin Albumin/Globulin Ratio Venous Blood Potassium 4.5 10/15/16 10/15/16 10/15/16 11:31 11:31 15:51 WBC RBC Hgb Hct MCV MCH MCHC RDW Plt Count MPV Neut % (Auto) Lymph % (Auto) [place] % (Auto) Eos % (Auto) Baso % (Auto) Neut # Lymph # [place] # Eos # Baso # Neutrophils % (Manual) Lymphocytes % (Manual) Monocytes % (Manual) Eosinophils % (Manual) Platelet Estimate Anisocytosis (manual) PT 14.3 H INR 1.3 H APTT 34.1 pO2 28 L VBG pH 7.34 VBG pCO2 51 VBG HCO3 25.2 VBG Total CO2 29.1 H VBG O2 Sat (Calc) 66.9 H VBG Base Excess 1.2 VBG Potassium 4.7 A-a O2 Difference Sodium 134 132.0 Chloride 95 L 98.0 Glucose 121 H Lactate 1.2 FiO2 21.0 Crit Value Called To Crit Value Called By Crit Value Read Back Blood Gas Notified Time Potassium 4.6 Carbon Dioxide 23 Anion Gap 21 H BUN 67 H Creatinine 12.4 H* Est GFR ( Amer) 5 Est GFR (Non-Af Amer) 4 POC Glucose (mg/dL) Random Glucose 139 H Calcium 9.4 Phosphorus 5.3 H Magnesium 2.1 Total Bilirubin 1.5 H AST 41 ALT 17 L D Alkaline Phosphatase 531 H D Total Protein 7.3 Albumin 3.6 Globulin 3.7 Albumin/Globulin Ratio 1.0 Venous Blood Potassium 4.7 10/16/16 10/16/16 05:18 11:37 WBC RBC Hgb Hct MCV MCH MCHC RDW Plt Count MPV Neut % (Auto) Lymph % (Auto) [place] % (Auto) Eos % (Auto) Baso % (Auto) Neut # Lymph # [place] # Eos # Baso # Neutrophils % (Manual) Lymphocytes % (Manual) Monocytes % (Manual) Eosinophils % (Manual) Platelet Estimate Anisocytosis (manual) PT INR APTT pO2 VBG pH VBG pCO2 VBG HCO3 VBG Total CO2 VBG O2 Sat (Calc) VBG Base Excess VBG Potassium A-a O2 Difference Sodium Chloride Glucose Lactate FiO2 Crit Value Called To Crit Value Called By Crit Value Read Back Blood Gas Notified Time Potassium Carbon Dioxide Anion Gap BUN Creatinine Est GFR ( Amer) Est GFR (Non-Af Amer) POC Glucose (mg/dL) 128 H 246 H Random Glucose Calcium Phosphorus Magnesium Total Bilirubin AST ALT Alkaline Phosphatase Total Protein Albumin Globulin Albumin/Globulin Ratio Venous Blood Potassium Microbiology 10/15/16 12:00 Arm - Left Gram Stain - Final 10/15/16 12:00 Arm - Left Wound Culture - Preliminary NO GROWTH AFTER 24 HOURS 10/15/16 11:30 Blood Blood Culture - Preliminary NO GROWTH AFTER 24 HOURS Microbiology 05/25/16 20:15 Blood-Venous Blood Culture - Final 05/25/16 20:15 Blood-Venous Gram Stain - Final NO GROWTH AFTER 5 DAYS TEST NOT PERFORMED 05/24/16 23:00 Blood-During Dialysis Blood Culture - Final 05/24/16 23:00 Blood-During Dialysis Gram Stain - Final NO GROWTH AFTER 5 DAYS TEST NOT PERFORMED 05/24/16 22:30 Blood-During Dialysis Blood Culture - Final 05/24/16 22:30 Blood-During Dialysis Gram Stain - Final NO GROWTH AFTER 5 DAYS TEST NOT PERFORMED Accession No. : [id number] Patient Name / ID : KYM SHEBA / [id number] Exam Date : 10/15/2016 11:44:10 ( Approved ) Study Comment : Sex / Age : M / 51Y Creator : Bryson Bolanos MD Dictator : Bryson Bolanos MD Dry Cell And Battery Assembler : Toll Bridge Attendant : Bryson Bolanos MD Approver2 : Report Date : 10/15/2016 12:27:34 My Comment : HISTORY: Sepsis Patient COMPARISON: 05/24/2016 FINDINGS: LUNGS: No active pulmonary disease. PLEURA: No significant pleural effusion identified, no pneumothorax apparent. CARDIOVASCULAR: Right subclavian/upper extremity vascular stent. Left tunneled central venous dialysis catheter. OSSEOUS STRUCTURES: No significant abnormalities. VISUALIZED UPPER ABDOMEN: Normal. OTHER FINDINGS: None. IMPRESSION: No active disease. Assessment & Plan (1) Fever Status: Acute (2) CKD (chronic kidney disease) stage 5, GFR less than 15 ml/min Status: Acute (3) ESRD (end stage renal disease) Status: Chronic - Assessment and Plan (Free Text) Assessment: A/P- 51 year old male with ESRD on HD with recent left arm Hero HD graft admitted with malaise and fever. possible infection of the graft site. plan- check blood cx x 2. if possible check cx from the graft site. advise to d/c unasyn and place on zosyn instead for brioader coverage. advise to place on linezolid as well for empiric staph coverage in light of this ?? vanco allergy. may need US of the graft site r/o any fluid collection. Thank you for allowing me to take part in the care of this patient. all above d/w patient and he verbalizes full understanding of all above.
--- NOTE | 2016-10-16 12:54 | CARD ---
APPROVED REPORT EKG Measurement Heart [id number] VT 216P [id number] <Conclusion> Sinus tachycardia with 1st degree AV block with premature atrial complexes Left axis deviation Right bundle branch block Abnormal ECG
--- NOTE | 2016-10-16 20:23 | PN ---
DATE: 10/16/2016 SUBJECTIVE: The patient is seen today on 10/16/2016. THE PATIENT DEVELOPED AN ALLERGIC SKIN REACTION AFTER HE WAS GIVEN A TORADOL INJECTION FOR PAIN. The symptoms of the allergy were resolved completely after the patient was given Benadryl and Solu-Medrol. OBJECTIVE: VITAL SIGNS: Blood pressure 116/69, temperature 99, respiratory rate 18, and pulse is 86. HEENT: Pupils equal, reactive to light. Normal-appearing mucosa of the conjunctivae, oropharyngeal and nasal membrane mucosa. NECK: Supple, no JVD, no carotid bruit, no lymph node, no thyromegaly. CHEST AND LUNGS: Bilateral symmetrical expansion, good air exchange, no rales, no rhonchi. CARDIOVASCULAR: PMI not localized. S1, S2. No additional sounds. ABDOMEN: Normoactive bowel sounds, no tenderness, no organomegaly, no masses. EXTREMITIES: The patient was right metatarsal amputation and the left upper arm swelling and redness is decreasing. CENTRAL NERVOUS SYSTEM: Alert, awake, oriented x 2. No neurological deficits could be appreciated. ASSESSMENT: 1. Infected left upper arm shunt. 2. End-stage renal disease, on hemodialysis. 3. Severe peripheral vascular disease with status post right metatarsal amputation. PLAN: Continue current IV antibiotics and follow recommendations of vascular surgery. Mildred Warren MD cc: 167 TT: 10/16/2016 20:23:11 Confirmation # [id number] Dictation # [id number] lorenzo HE
[2016-10-16] MEDS: Linezolid 600 mg in D5W 300 ml 600 MG/300 ML BAG IVPB SCH (21:50)
[2016-10-17] MEDS ORDERED: Lidocaine 5% Patch TD ONE (03:12)
[2016-10-17 08:24] LABS: BASO % 0.1 % (0.0-2.0); EOS % 0.1 % (0.0-4.0); LYMPH # 0.8 K/uL (1.0-4.3); LYMPH % 7.3 % (20.0-40.0); MEAN CELL VOLUME 83.5 fl (80.0-94.0); MEAN CORPUSCULAR HEMOGLOBIN 26.7 pg (27.0-31.0); MEAN PLATELET VOLUME 8.3 fl (7.2-11.7); MONO # 1.2 K/uL (0.0-0.8); MONO % 10.6 % (0.0-10.0); NEUT # 9.4 K/uL (1.8-7.0); NEUT % 81.9 % (50.0-75.0); RED CELL DISTRIBUTION WIDTH 15.9 % (11.5-14.5); WHITE BLOOD COUNT 11.5 K/uL (4.8-10.8)
[2016-10-17] MEDS: Verapamil SR 120 MG CApsule PO SCH (08:56)
[2016-10-17] MEDS: Omega-3-Acid Ethyl Esters 1 GM Cap PO SCH ×2 (08:56→17:42)
[2016-10-17] MEDS: Pantoprazole 40 mg EC Tab PO SCH (08:58)
[2016-10-17] MEDS: Multivitamin Vitamin B Complex (Nephro-Vite) Tab PO SCH (08:59)
[2016-10-17] MEDS: Megestrol Acetate 40 mg/ml Cup PO SCH (08:59)
[2016-10-17] MEDS: Linezolid 600 mg in D5W 300 ml 600 MG/300 ML BAG IVPB SCH ×2 (09:03→21:30)
--- NOTE | 2016-10-17 10:35 | CP.PCM.PN ---
Subjective - Date & Time of Evaluation Date of Evaluation: 10/17/16 Time of Evaluation: 07:00 - Subjective Subjective: General Surgery - Dr. Cuevas pt S&E. VICKEY. Pt denies any complaints. Afebrile. He denies any discomfort from the HD site, slight erythema present, no drainage. Objective - Vital Signs/Intake and Output Vital Signs (last 24 hours): Temp Pulse Resp BP Pulse Ox 98.7 F 80 18 150/85 97 10/17/16 07:53 10/17/16 07:53 10/17/16 07:53 10/17/16 07:53 10/17/16 07:53 - Medications Medications: Current Medications Alprazolam (Xanax) 0.5 mg PO TID PRN PRN Reason: Anxiety Apixaban (Eliquis) 2.5 mg PO BID [facility] PRN Reason: Protocol Last Admin: 10/17/16 08:56 Dose: 2.5 mg Ascorbic Acid (Vitamin C 500 Mg Tab) 500 mg PO DAILY [facility] Last Admin: 10/17/16 08:58 Dose: 500 mg Atorvastatin Calcium (Lipitor) 20 mg PO HS [facility] Last Admin: 10/16/16 21:51 Dose: 20 mg Clopidogrel Bisulfate (Plavix) 75 mg PO DAILY [facility] Last Admin: 10/17/16 08:56 Dose: 75 mg Home Med (Febuxostat [Uloric]) 40 mg PO DAILY [facility] Hydromorphone HCl (Dilaudid) 1 mg IVP Q6H PRN PRN Reason: pain level 8-10 Linezolid (Zyvox 600mg/300ml D5w) 600 mg in 300 mls @ 300 mls/hr IVPB Q12 [facility] Last Admin: 10/17/16 09:03 Dose: 300 mls/hr Piperacillin Sod/Tazobactam (Sod 2.25 gm/ Sodium Chloride) 100 mls @ 100 mls/ hr IVPB Q6 [facility] Last Admin: 10/17/16 09:02 Dose: 100 mls/hr Lactic Acid (Lac-Hydrin 12% Lotion (225 G)) 1 applic TOP BID [facility] Last Admin: 10/17/16 08:57 Dose: 1 applic Megestrol Acetate (Megace) 200 mg PO DAILY [facility] Last Admin: 10/17/16 08:59 Dose: 200 mg Minoxidil (Minoxidil) 5 mg PO BID [facility] Last Admin: 10/17/16 08:56 Dose: 5 mg Svbqq-3-Tafm Ethyl Esters (Lovaza) 1 gm PO BID [facility] Last Admin: 10/17/16 08:56 Dose: 1 gm Pantoprazole Sodium (Protonix Ec Tab) 40 mg PO DAILY [facility] Last Admin: 10/17/16 08:58 Dose: 40 mg Paroxetine HCl (Paxil) 10 mg PO DAILY [facility] Last Admin: 10/17/16 08:58 Dose: 10 mg Sevelamer HCl (Renagel) 2,400 mg PO TIDWM [facility] Last Admin: 10/17/16 08:57 Dose: 2,400 mg Simethicone (Mylicon Chew Tab) 80 mg PO PCHS PRN PRN Reason: Heartburn Last Admin: 10/16/16 20:11 Dose: 80 mg Tamsulosin HCl (Flomax) 0.4 mg PO DAILY [facility] Last Admin: 10/17/16 08:56 Dose: 0.4 mg Tramadol HCl (Ultram) 50 mg PO Q8 PRN PRN Reason: Pain, moderate (4-7) Last Admin: 10/17/16 01:41 Dose: 50 mg Verapamil HCl (Calan Sr Capsule) 120 mg PO DAILY [facility] Last Admin: 10/17/16 08:56 Dose: 120 mg Vitamin B Complex/Vit C/Folic Acid (Nephro-Garcia) 1 tab PO DAILY [facility] Last Admin: 10/17/16 08:59 Dose: 1 tab - Labs Labs: 10/17/16 06:30 PT 14.3 Seconds (9.8-13.1) H 10/15/16 11:31 INR 1.3 (0.9-1.2) H 10/15/16 11:31 APTT 34.1 Seconds (25.6-37.1) 10/15/16 11:31 - Constitutional Appears: No Acute Distress - Head Exam Head Exam: ATRAUMATIC, NORMAL INSPECTION, NORMOCEPHALIC - Neck Exam Additional comments: 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 absent: Respiratory Distress - Neurological Exam Neurological Exam: Alert, Oriented x3 - Psychiatric Exam Psychiatric exam: Normal Affect, Normal Mood - Skin Skin Exam: Dry, Intact Assessment and Plan - Assessment and Plan (Free Text) Assessment: 51M w/ ESRD, Sx consulted for possible catheter infection Plan: -Afebrile, WBC slightly up today to 11 -No external signs of infection -F/U Blood Cx, thus far negative -Will follow d/w Dr Mason Avila, PGY2
--- NOTE | 2016-10-17 11:45 | CP.PCM.PN ---
Subjective - Date & Time of Evaluation Date of Evaluation: 10/16/16 Time of Evaluation: 14:00 - Subjective Subjective: SEEN ON RENAL F/U FEELS MUCH BETTER ON HD M W F Objective - Vital Signs/Intake and Output Vital Signs (last 24 hours): Temp Pulse Resp BP Pulse Ox 98.7 F 80 18 150/85 97 10/17/16 07:53 10/17/16 07:53 10/17/16 07:53 10/17/16 07:53 10/17/16 07:53 - Medications Medications: Current Medications Alprazolam (Xanax) 0.5 mg PO TID PRN PRN Reason: Anxiety Apixaban (Eliquis) 2.5 mg PO BID [facility] PRN Reason: Protocol Last Admin: 10/17/16 08:56 Dose: 2.5 mg Ascorbic Acid (Vitamin C 500 Mg Tab) 500 mg PO DAILY [facility] Last Admin: 10/17/16 08:58 Dose: 500 mg Atorvastatin Calcium (Lipitor) 20 mg PO HS [facility] Last Admin: 10/16/16 21:51 Dose: 20 mg Clopidogrel Bisulfate (Plavix) 75 mg PO DAILY [facility] Last Admin: 10/17/16 08:56 Dose: 75 mg Home Med (Febuxostat [Uloric]) 40 mg PO DAILY [facility] Hydromorphone HCl (Dilaudid) 1 mg IVP Q6H PRN PRN Reason: pain level 8-10 Linezolid (Zyvox 600mg/300ml D5w) 600 mg in 300 mls @ 300 mls/hr IVPB Q12 [facility] Last Admin: 10/17/16 09:03 Dose: 300 mls/hr Piperacillin Sod/Tazobactam (Sod 2.25 gm/ Sodium Chloride) 100 mls @ 100 mls/ hr IVPB Q6 [facility] Last Admin: 10/17/16 09:02 Dose: 100 mls/hr Lactic Acid (Lac-Hydrin 12% Lotion (225 G)) 1 applic TOP BID [facility] Last Admin: 10/17/16 08:57 Dose: 1 applic Megestrol Acetate (Megace) 200 mg PO DAILY [facility] Last Admin: 10/17/16 08:59 Dose: 200 mg Minoxidil (Minoxidil) 5 mg PO BID [facility] Last Admin: 10/17/16 08:56 Dose: 5 mg [id number]-8-[id number] Ethyl Esters (Lovaza) 1 gm PO BID [facility] Last Admin: 10/17/16 08:56 Dose: 1 gm Pantoprazole Sodium (Protonix Ec Tab) 40 mg PO DAILY [facility] Last Admin: 10/17/16 08:58 Dose: 40 mg Paroxetine HCl (Paxil) 10 mg PO DAILY [facility] Last Admin: 10/17/16 08:58 Dose: 10 mg Sevelamer HCl (Renagel) 2,400 mg PO TIDWM [facility] Last Admin: 10/17/16 08:57 Dose: 2,400 mg Simethicone (Mylicon Chew Tab) 80 mg PO PCHS PRN PRN Reason: Heartburn Last Admin: 10/16/16 20:11 Dose: 80 mg Tamsulosin HCl (Flomax) 0.4 mg PO DAILY [facility] Last Admin: 10/17/16 08:56 Dose: 0.4 mg Tramadol HCl (Ultram) 50 mg PO Q8 PRN PRN Reason: Pain, moderate (4-7) Last Admin: 10/17/16 01:41 Dose: 50 mg Verapamil HCl (Calan Sr Capsule) 120 mg PO DAILY [facility] Last Admin: 10/17/16 08:56 Dose: 120 mg Vitamin B Complex/Vit C/Folic Acid (Nephro-Garcia) 1 tab PO DAILY [facility] Last Admin: 10/17/16 08:59 Dose: 1 tab - Labs Labs: 10/17/16 06:30 PT 14.3 Seconds (9.8-13.1) H 10/15/16 11:31 INR 1.3 (0.9-1.2) H 10/15/16 11:31 APTT 34.1 Seconds (25.6-37.1) 10/15/16 11:31 Assessment and Plan - Assessment and Plan (Free Text) Assessment: ESRD ON HD M W F FEVERE ON IVAB C/O CURRENT CARE
--- NOTE | 2016-10-18 01:03 | PN ---
DATE: 10/17/2016 SUBJECTIVE: The patient is seen today, 10/17/2016. He has less pain on the left upper arm. Current ly on IV and Zosyn. PHYSICAL EXAMINATION: VITAL SIGNS: Blood pressure 148/75, temperature . HEENT: Normal appearing mucosa of the conjunctivae, oropharyngeal and nasal membrane mucosa. NECK: Supple, no JVD, no carotid bruit, no lymph node, no thyromegaly. CHEST AND LUNGS: Bilateral symmetrical expansion, good air exchange, no rales, no rhonchi. CARDIOVASCULAR: PMI not localized. S1, S2. No additional sounds. ABDOMEN: Normoactive bowel sounds, no tenderness, no organomegaly, no masses. EXTREMITIES: Right metatarsal amputation, left upper arm shunt with slight weakness, which is improv ing. ASSESSMENT: 1. Infected left upper arm shunt. 2. End-stage renal disease, on hemodialysis. 3. Hypertension. PLAN: Continue current IV antibiotics. Follow recommendation of ID. Will give patient Dilaudid 1 m g every 4 hours p.r.n. for any back pain or left upper arm pain. Mildred Warren MD cc: 167 TT: 10/18/2016 01:03:21 Confirmation # [id number] Dictation # [id number] mn
--- NOTE | 2016-10-18 06:22 | HP ---
HISTORY OF PRESENT ILLNESS: This is a 51-year-old male with history of end-stage renal dise ase, on hemodialysis in addition to multiple medical problems, presented to Emergency Room with sympt oms of pain, fever and discharge at place of revised shunt on the right upper arm and the left upper arm. The patient had the revised shunt on the left upper arm done a week prior to this admission in [facility]. The patient developed fever today during dialysis. The patient was sent to Emergency Room for evaluation and subsequently admitted. REVIEW OF SYSTEMS: Other review of systems is negative. ALLERGIES: No known allergy. HOME MEDICATIONS: Verapamil 120 mg daily, Eliquis 2.5 mg twice a day, Flomax 0.4 mg daily, atorvasta tin 20 mg daily, omega-3 1 gram twice a day, Megace 200 mg daily, minoxidil 5 mg twice a day, Paxil 1 0 mg daily, Plavix 75 mg daily, Protonix 40 mg daily, alprazolam 0.5 mg 3 times a day p.r.n. SOCIAL HISTORY: No history of smoking, ETOH or substance abuse. FAMILY HISTORY: Noncontributory. PAST MEDICAL HISTORY: End-stage renal disease, on hemodialysis; hypertension, status post right golden smetatarsal amputation. PHYSICAL EXAMINATION: GENERAL: The patient is in bed, not in any cardiopulmonary distress at the time of this examination. VITAL SIGNS: Blood pressure 127/65, temperature 98.3, respiratory rate 20, pulse is 100. HEENT: ____ mucosa of the conjunctivae, oropharyngeal and nasal membrane mucosa. NECK: Supple, no JVD, no carotid bruit, no lymph node, no thyromegaly. CHEST AND LUNGS: Bilateral symmetrical expansion, good air exchange. No rales, no rhonchi. CARDIOVASCULAR: PMI not localized. S1, S2. No additional sounds. ABDOMEN: Normoactive bowel sounds, no tenderness, no organomegaly, no masses. EXTREMITIES: No cyanosis, no clubbing, no edema. Right transmetatarsal amputation. CENTRAL NERVOUS SYSTEM: Alert, awake, and in the right upper arm, there is redness and swelling at t he site of the newly revised shunt and ____ x 2 ____ ASSESSMENT: 1. Infected right upper arm shunt. 2. End-stage renal disease, on hemodialysis. 3. Hypertension. 4. Peripheral vascular disease. PLAN: ID consult, ____ and we were not be able to give the patient vancomycin due to ____ vascular surgery consult and follow recommendations. Mildred Warren MD cc: [phone] TT: 10/16/2016 08:47:45 jn
[2016-10-18 07:03] LABS: HEMATOCRIT 27.7 % (35.0-51.0); MEAN CELL VOLUME 82.7 fl (80.0-94.0); MEAN CORPUSCULAR HEMOGLOBIN 27.4 pg (27.0-31.0); MEAN CORPUSCULAR HGB CONC 33.2 g/dL (33.0-37.0); RED CELL DISTRIBUTION WIDTH 15.4 % (11.5-14.5); WHITE BLOOD COUNT 9.9 K/uL (4.8-10.8)
[2016-10-18 07:30] LABS: ALB/GLOB RATIO 0.9 (1.0-2.1); BILIRUBIN,TOTAL 1.3 mg/dl (0.2-1.3); CALCIUM 9.1 mg/dL (8.4-10.2); TOTAL PROTEIN 6.8 G/DL (6.3-8.2)
--- NOTE | 2016-10-18 07:34 | CP.PCM.PN ---
Subjective - Date & Time of Evaluation Date of Evaluation: 10/18/16 Time of Evaluation: 07:10 - Subjective Subjective: General Surgery - Dr. Cuevas Patient was seen and evaluated at bedside this morning concerning possible catheter infection. NAEO. Pt denies any complaints. Afebrile. He denies any discomfort from the HD site, slight erythema present, no drainage. Objective - Vital Signs/Intake and Output Vital Signs (last 24 hours): Temp Pulse Resp BP Pulse Ox 98.5 F 75 19 147/80 98 10/18/16 04:40 10/18/16 04:40 10/18/16 04:40 10/18/16 04:40 10/18/16 04:40 - Medications Medications: Current Medications Alprazolam (Xanax) 0.5 mg PO TID PRN PRN Reason: Anxiety Apixaban (Eliquis) 2.5 mg PO BID [facility] PRN Reason: Protocol Last Admin: 10/17/16 16:19 Dose: 2.5 mg Ascorbic Acid (Vitamin C 500 Mg Tab) 500 mg PO DAILY [facility] Last Admin: 10/17/16 08:58 Dose: 500 mg Atorvastatin Calcium (Lipitor) 20 mg PO HS [facility] Last Admin: 10/17/16 21:29 Dose: 20 mg Clopidogrel Bisulfate (Plavix) 75 mg PO DAILY [facility] Last Admin: 10/17/16 08:56 Dose: 75 mg Home Med (Febuxostat [Uloric]) 40 mg PO DAILY [facility] Hydromorphone HCl (Dilaudid) 1 mg IVP Q6H PRN PRN Reason: pain level 8-10 Last Admin: 10/18/16 01:01 Dose: 1 mg Linezolid (Zyvox 600mg/300ml D5w) 600 mg in 300 mls @ 300 mls/hr IVPB Q12 [facility] Last Admin: 10/17/16 21:30 Dose: 300 mls/hr Piperacillin Sod/Tazobactam (Sod 2.25 gm/ Sodium Chloride) 100 mls @ 100 mls/ hr IVPB Q6 [facility] Last Admin: 10/18/16 04:41 Dose: 100 mls/hr Lactic Acid (Lac-Hydrin 12% Lotion (225 G)) 1 applic TOP BID [facility] Last Admin: 10/17/16 16:19 Dose: 1 applic Megestrol Acetate (Megace) 200 mg PO DAILY [facility] Last Admin: 10/17/16 08:59 Dose: 200 mg Minoxidil (Minoxidil) 5 mg PO BID [facility] Last Admin: 10/17/16 16:18 Dose: 5 mg [id number] Ethyl Esters (Lovaza) 1 gm PO BID [facility] Last Admin: 10/17/16 17:42 Dose: 1 gm Pantoprazole Sodium (Protonix Ec Tab) 40 mg PO DAILY [facility] Last Admin: 10/17/16 08:58 Dose: 40 mg Paroxetine HCl (Paxil) 10 mg PO DAILY [facility] Last Admin: 10/17/16 08:58 Dose: 10 mg Sevelamer HCl (Renagel) 2,400 mg PO TIDWM [facility] Last Admin: 10/17/16 16:19 Dose: 2,400 mg Simethicone (Mylicon Chew Tab) 80 mg PO [facility] PRN PRN Reason: Heartburn Last Admin: 10/16/16 20:11 Dose: 80 mg Tamsulosin HCl (Flomax) 0.4 mg PO DAILY [facility] Last Admin: 10/17/16 08:56 Dose: 0.4 mg Tramadol HCl (Ultram) 50 mg PO Q8 PRN PRN Reason: Pain, moderate (4-7) Last Admin: 10/17/16 01:41 Dose: 50 mg Verapamil HCl (Calan Sr Capsule) 120 mg PO DAILY [facility] Last Admin: 10/17/16 08:56 Dose: 120 mg Vitamin B Complex/Vit C/Folic Acid (Nephro-Garcia) 1 tab PO DAILY [facility] Last Admin: 10/17/16 08:59 Dose: 1 tab - Labs Labs: 10/18/16 06:35 PT 14.3 Seconds (9.8-13.1) H 10/15/16 11:31 INR 1.3 (0.9-1.2) H 10/15/16 11:31 APTT 34.1 Seconds (25.6-37.1) 10/15/16 11:31 - Constitutional Appears: Well, Non-toxic, No Acute Distress - Neck Exam Additional comments: Left Hero HD cath in place 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 Cuevas
[2016-10-18 07:42] LABS: POTASSIUM 6.2 MMOL/L (3.6-5.0)
[2016-10-18] MEDS: Verapamil SR 120 MG CApsule PO SCH (08:44)
[2016-10-18] MEDS: Pantoprazole 40 mg EC Tab PO SCH (08:45)
[2016-10-18] MEDS: Omega-3-Acid Ethyl Esters 1 GM Cap PO SCH ×2 (08:47→17:37)
[2016-10-18] MEDS: Megestrol Acetate 40 mg/ml Cup PO SCH (08:47)
[2016-10-18] MEDS: Multivitamin Vitamin B Complex (Nephro-Vite) Tab PO SCH (08:47)
[2016-10-18] MEDS: Linezolid 600 mg in D5W 300 ml 600 MG/300 ML BAG IVPB SCH ×2 (09:00→21:17)
--- NOTE | 2016-10-18 13:57 | CP.PCM.PN ---
Subjective - Date & Time of Evaluation Date of Evaluation: 10/18/16 Time of Evaluation: 15:53 - Subjective Subjective: Id Note- Pt. seen and examined today. Pt. denies any complaints and states he feels well and is eating well and wishes to go home. denies any fever or chills. has been cleared by renal for d/c home. Objective - Vital Signs/Intake and Output Vital Signs (last 24 hours): Temp Pulse Resp BP Pulse Ox 97.3 F L 89 18 141/83 95 10/18/16 13:00 10/18/16 13:00 10/18/16 13:00 10/18/16 13:00 10/18/16 13:00 - Medications Medications: Current Medications Alprazolam (Xanax) 0.5 mg PO TID PRN PRN Reason: Anxiety Apixaban (Eliquis) 2.5 mg PO BID [facility] PRN Reason: Protocol Last Admin: 10/18/16 08:44 Dose: 2.5 mg Ascorbic Acid (Vitamin C 500 Mg Tab) 500 mg PO DAILY [facility] Last Admin: 10/18/16 08:45 Dose: 500 mg Atorvastatin Calcium (Lipitor) 20 mg PO HS [facility] Last Admin: 10/17/16 21:29 Dose: 20 mg Clopidogrel Bisulfate (Plavix) 75 mg PO DAILY [facility] Last Admin: 10/18/16 08:45 Dose: 75 mg Home Med (Febuxostat [Uloric]) 40 mg PO DAILY [facility] Hydromorphone HCl (Dilaudid) 1 mg IVP Q6H PRN PRN Reason: pain level 8-10 Last Admin: 10/18/16 01:01 Dose: 1 mg Linezolid (Zyvox 600mg/300ml D5w) 600 mg in 300 mls @ 300 mls/hr IVPB Q12 [facility] Last Admin: 10/18/16 09:00 Dose: Not Given Piperacillin Sod/Tazobactam (Sod 2.25 gm/ Sodium Chloride) 100 mls @ 100 mls/ hr IVPB Q6 [facility] Last Admin: 10/18/16 09:02 Dose: Not Given Lactic Acid (Lac-Hydrin 12% Lotion (225 G)) 1 applic TOP BID [facility] Last Admin: 10/18/16 11:59 Dose: 1 applic Megestrol Acetate (Megace) 200 mg PO DAILY [facility] Last Admin: 10/18/16 08:47 Dose: 200 mg Minoxidil (Minoxidil) 5 mg PO BID [facility] Last Admin: 10/18/16 08:47 Dose: Not Given [id number] Ethyl Esters (Lovaza) 1 gm PO BID [facility] Last Admin: 10/18/16 08:47 Dose: 1 gm Pantoprazole Sodium (Protonix Ec Tab) 40 mg PO DAILY [facility] Last Admin: 10/18/16 08:45 Dose: 40 mg Paroxetine HCl (Paxil) 10 mg PO DAILY [facility] Last Admin: 10/18/16 08:46 Dose: 10 mg Sevelamer HCl (Renagel) 2,400 mg PO TIDWM [facility] Last Admin: 10/18/16 13:33 Dose: Not Given Simethicone (Mylicon Chew Tab) 80 mg PO [facility] PRN PRN Reason: Heartburn Last Admin: 10/16/16 20:11 Dose: 80 mg Tamsulosin HCl (Flomax) 0.4 mg PO DAILY [facility] Last Admin: 10/17/16 08:56 Dose: 0.4 mg Tramadol HCl (Ultram) 50 mg PO Q8 PRN PRN Reason: Pain, moderate (4-7) Last Admin: 10/17/16 01:41 Dose: 50 mg Verapamil HCl (Calan Sr Capsule) 120 mg PO DAILY [facility] Last Admin: 10/18/16 08:44 Dose: Not Given Vitamin B Complex/Vit C/Folic Acid (Nephro-Garcia) 1 tab PO DAILY [facility] Last Admin: 10/18/16 08:47 Dose: 1 tab - Labs Labs: - Additional Findings Additional findings: Constitutional Appears: Non-toxic, No Acute Distress - Head Exam Head Exam: ATRAUMATIC - Eye Exam Eye Exam: EOMI - ENT Exam ENT Exam: Normal Oropharynx - Neck Exam Neck exam: Positive for: Full Rom - Respiratory Exam Respiratory Exam: Clear to Auscultation Bilateral, NORMAL BREATHING PATTERN - Cardiovascular Exam Cardiovascular Exam: RRR, +S1, +S2 - GI/Abdominal Exam GI & Abdominal Exam: Normal Bowel Sounds, Soft Additional comments: NT, ND - Extremities Exam Additional comments: left arm HD graft site looks clean , no longer any erythema no discharge no tenderness right TMA site clean /dry/ intact no edema b/l LE - Neurological Exam Neurological exam: Alert, Oriented x 3 Laboratory Results - last 72 hr 10/15/16 10/16/16 10/16/16 10:33 05:18 11:37 WBC RBC Hgb Hct MCV MCH MCHC RDW Plt Count MPV Neut % (Auto) Lymph % (Auto) [place] % (Auto) Eos % (Auto) Baso % (Auto) Neut # Lymph # [place] # Eos # Baso # Sodium Potassium Chloride Carbon Dioxide Anion Gap BUN Creatinine Est GFR ( Amer) Est GFR (Non-Af Amer) POC Glucose (mg/dL) 161 H 128 H 246 H Random Glucose Calcium Total Bilirubin AST ALT Alkaline Phosphatase Total Protein Albumin Globulin Albumin/Globulin Ratio 10/16/16 10/16/16 10/17/16 16:03 21:33 05:09 WBC RBC Hgb Hct MCV MCH MCHC RDW Plt Count MPV Neut % (Auto) Lymph % (Auto) [place] % (Auto) Eos % (Auto) Baso % (Auto) Neut # Lymph # [place] # Eos # Baso # Sodium Potassium Chloride Carbon Dioxide Anion Gap BUN Creatinine Est GFR ( Amer) Est GFR (Non-Af Amer) POC Glucose (mg/dL) 352 H 306 H 341 H Random Glucose Calcium Total Bilirubin AST ALT Alkaline Phosphatase Total Protein Albumin Globulin Albumin/Globulin Ratio 10/17/16 10/17/16 10/17/16 06:30 11:13 16:10 WBC 11.5 H RBC 3.47 L Hgb 9.3 L Hct 29.0 L MCV 83.5 MCH 26.7 L MCHC 32.0 L RDW 15.9 H Plt Count 296 MPV 8.3 Neut % (Auto) 81.9 H Lymph % (Auto) 7.3 L [place] % (Auto) 10.6 H Eos % (Auto) 0.1 Baso % (Auto) 0.1 Neut # 9.4 H Lymph # 0.8 L [place] # 1.2 H Eos # 0.0 Baso # 0.0 Sodium Potassium Chloride Carbon Dioxide Anion Gap BUN Creatinine Est GFR ( Amer) Est GFR (Non-Af Amer) POC Glucose (mg/dL) 238 H 331 H Random Glucose Calcium Total Bilirubin AST ALT Alkaline Phosphatase Total Protein Albumin Globulin Albumin/Globulin Ratio 10/17/16 10/18/16 10/18/16 21:07 05:02 06:35 WBC 9.9 RBC 3.35 L Hgb 9.2 L Hct 27.7 L MCV 82.7 MCH 27.4 MCHC 33.2 RDW 15.4 H Plt Count 277 MPV Neut % (Auto) Lymph % (Auto) [place] % (Auto) Eos % (Auto) Baso % (Auto) Neut # Lymph # [place] # Eos # Baso # Sodium Potassium Chloride Carbon Dioxide Anion Gap BUN Creatinine Est GFR ( Amer) Est GFR (Non-Af Amer) POC Glucose (mg/dL) 272 H 224 H Random Glucose Calcium Total Bilirubin AST ALT Alkaline Phosphatase Total Protein Albumin Globulin Albumin/Globulin Ratio 10/18/16 10/18/16 10/18/16 06:35 11:17 14:30 WBC RBC Hgb Hct MCV MCH MCHC RDW Plt Count MPV Neut % (Auto) Lymph % (Auto) [place] % (Auto) Eos % (Auto) Baso % (Auto) Neut # Lymph # [place] # Eos # Baso # Sodium 131 L 136 Potassium 6.2 H* D 3.9 Chloride 97 L 96 L Carbon Dioxide 17 L 24 Anion Gap 23 H 20 BUN 100 H* D 53 H Creatinine 12.9 H* 7.2 H Est GFR ( Amer) 5 10 Est GFR (Non-Af Amer) 4 8 POC Glucose (mg/dL) 199 H Random Glucose 186 H 198 H Calcium 9.1 9.3 Total Bilirubin 1.3 AST 61 H D ALT 48 Alkaline Phosphatase 956 H D Total Protein 6.8 Albumin 3.2 L Globulin 3.5 Albumin/Globulin Ratio 0.9 L Microbiology 10/15/16 11:30 Blood Blood Culture - Preliminary NO GROWTH AFTER 3 DAYS 10/15/16 12:00 Arm - Left Gram Stain - Final 10/15/16 12:00 Arm - Left Wound Culture - Final Coagulase Neg Staphylococcus 10/15/16 12:00 Blood Blood Culture - Preliminary NO GROWTH AFTER 48 HOURS 10/16/16 16:37 Blood-Venous Blood Culture - Preliminary NO GROWTH AFTER 24 HOURS Assessment and Plan (1) Fever Status: Acute (2) CKD (chronic kidney disease) stage 5, GFR less than 15 ml/min Status: Acute (3) ESRD (end stage renal disease) Status: Chronic - Assessment and Plan (Free Text) Assessment: A/P- 51 year old male with ESRD on HD with recent left arm Hero HD graft admitted with malaise and fever. has remained afebrile since admission normal wbc count blood cx- neg x 2 superficial graft site cx- coag neg staph but as per micro grew only in broth today plan- has been on empiric zosyn for past 3 days. Also pt. has been on Iv linezolid for past 3 days for empiric staph coverage. since pt. has remained afebrile with normal wbc count and negative blood cx , no objection to pt. being d/c home today form ID staondpoint as long as he can get antibiotics as outpatient. advise to d/c on oral linezolid 600 mg BID for 10-14 more days and advise to give ceftazidime 2 gram post HD for 10-14 doses at the HD center. monitor platelets while on linezolid. pt's catheter should also be monitored as outpatient by vascular and if any signs of redness or infection catheter should then be removed. This was d/w patient and with the supply person. Pt. verbalizes full understanding of all above and agrees with above plan of care.
[2016-10-18 15:01] LABS: CALCIUM 9.3 mg/dL (8.4-10.2); POTASSIUM 3.9 MMOL/L (3.6-5.0)
[2016-10-18] MEDS: Verapamil 120 mg ER Tab PO SCH (19:16)
--- NOTE | 2016-10-18 19:31 | CP.PCM.CON ---
History of Present Illness - History of Present Illness History of Present Illness: THE PATIENT IS A 51 YEAR OLD MALE WITH MANY MEDICAL PROBLEMS INCLUDING CRF ON HEMODIALYSIS, HYPERTENSION, HYPERLIPIDEMIA, DIABETES MELLITUS AND PAD. I KNOW HIM FROM MY OFFICE PRACTICE WHERE HE WAS REFERRED A FEW YEARS AGO FOR PALPITATIONS. A HOLTER MONITOR SHOWED SINUS RHYTHM WITH PERIODS OF SINUS TACHYCARDIA AND FREQUENT PACS. HE WAS PLACED ON VERAPAMIL WITH GOOD RESULTS IN CONTROLLING HIS PALPITATIONS AND BETTER CONTROL OF HIS HYPERTENSION. BUT, HE WAS OFTEN ADJUSTING THE VERAPAMIL DOSE ON HIS OWN AND WOULD SKIP IT THE DAY OF DIALYSIS BEING AFRAID THAT HIS BLOOD PRESSURE MAY GO TOO LOW AND THAT DIALYSIS WOULD NOT BE PERFORMED AND THEN HAD PALPITATIONS AGAIN. IT WAS EMPHASIZED TO HIM THAT IF HE DIDN'T TAKE THE VERAPAMIL IN THE AM BEFORE HD THAT HE SHOULD TAKE THE VERAPAMIL LATER THAT DAY FOR PALPITATION AND HYPERTENSION CONTROL BUT HE WOULD NOT ALWAYS LISTEN. HE HAD HD ACCESS VASUCULAR SURGERY ABOUT 10 DAYS AGO AND WAS ADMITTED 10/15/16 FOR A FEVER OF 102 AND THERE APPEARED TO BE AN INFECTION AT THE SURGICAL SITE AND HE WAS PLACED ON IV ANTIBIOTICS AND IS DOING MUCH BETTER. HE HAD TACHYCARDIA AND THE EKG MACHINE READ IT ATRIAL FIBRILLATION SO I WAS CALLED TO SEE HIM. HE REFUSED TO TAKE HIS VERAPAMIL TODAY EVEN AFTER HD. HE DENIES PALPITATIONS, CHEST PAIN OR SOB. HE DOES NOT HAVE CAD. Past Patient History - Infectious Disease Hx of Infectious Diseases: None - Tetanus Immunizations Tetanus Immunization: Unknown - Past Medical History & Family History Past Medical History?: Yes - Past Social History Smoking Status: Never Smoked - CARDIAC Hx Atrial Fibrillation: Yes Hx Cardia Arrhythmia: Yes Hx Congestive Heart Failure: No Hx Hypercholesterolemia: Yes Hx Hypertension: Yes Hx Peripheral Edema: Yes - NEUROLOGICAL Hx Neurological Disorder: No Other/Comment: Hx Diabetic neuropathy - HEENT Hx HEENT Problems: No Hx Cataracts: Yes (Bilateral) Hx Epistaxis: Yes - RENAL Hx Chronic Kidney Disease: Yes Hx Dialysis: Yes Hx Kidney Stones: Yes - ENDOCRINE/METABOLIC Hx Diabetes Mellitus Type 2: Yes Hx Hypothyroidism: No - HEMATOLOGICAL/ONCOLOGICAL Hx Anemia: Yes - INTEGUMENTARY Hx Dermatological Problems: No Hx Cellulitis: Yes Other/Comment: Pt. had all toenails 10 toenails removed at the age of 14 due to pain - MUSCULOSKELETAL/RHEUMATOLOGICAL Hx Arthritis: Yes Hx Falls: Yes Hx Fractures: No Hx Osteoarthritis: Yes Hx Osteoporosis: Yes - GASTROINTESTINAL Hx Gastritis: Yes - GENITOURINARY/GYNECOLOGICAL Hx Genitourinary Disorders: No Hx Prostate Problems: Yes Hx Urinary Tract Infection: Yes Other/Comment: Anuric due to kidney condition, confirmed by mother patient has no kidneys - PSYCHIATRIC Hx Anxiety: Yes Hx Depression: Yes Hx Substance Use: No - SURGICAL HISTORY Hx Amputation: Yes Hx Appendectomy: Yes - ANESTHESIA Hx Anesthesia: Yes Hx Anesthesia Reactions: Yes (AWAKE DURING THE SURGERY) Hx Malignant Hyperthermia: No Meds Allergies/Adverse Reactions: Allergies Allergy/AdvReac Type Severity Reaction Status Date / Time hydromorphone HCl Allergy WHEEZING Verified 12/31/15 18:30 [From Dilaudid] ketorolac [From Toradol] Allergy RASH Verified 10/16/16 06:32 propoxyphene napsylate Allergy RASH Verified 12/31/15 18:30 [From Darvocet-N] vancomycin AdvReac RASH Verified 12/31/15 18:30 - Medications Medications: Current Medications Alprazolam (Xanax) 0.5 mg PO TID PRN PRN Reason: Anxiety Apixaban (Eliquis) 2.5 mg PO BID [facility] PRN Reason: Protocol Last Admin: 10/18/16 17:37 Dose: 2.5 mg Ascorbic Acid (Vitamin C 500 Mg Tab) 500 mg PO DAILY [facility] Last Admin: 10/18/16 08:45 Dose: 500 mg Atorvastatin Calcium (Lipitor) 20 mg PO HS [facility] Last Admin: 10/17/16 21:29 Dose: 20 mg Clopidogrel Bisulfate (Plavix) 75 mg PO DAILY [facility] Last Admin: 10/18/16 08:45 Dose: 75 mg Home Med (Febuxostat [Uloric]) 40 mg PO DAILY [facility] Hydromorphone HCl (Dilaudid) 1 mg IVP Q6H PRN PRN Reason: pain level 8-10 Last Admin: 10/18/16 01:01 Dose: 1 mg Linezolid (Zyvox 600mg/300ml D5w) 600 mg in 300 mls @ 300 mls/hr IVPB Q12 [facility] Last Admin: 10/18/16 09:00 Dose: Not Given Piperacillin Sod/Tazobactam (Sod 2.25 gm/ Sodium Chloride) 100 mls @ 100 mls/ hr IVPB Q6 [facility] Last Admin: 10/18/16 17:40 Dose: 100 mls/hr Insulin Detemir (Levemir) 20 units SC [facility] Insulin Human Regular (Humulin R) 0 units SC [facility] PRN Reason: Protocol Lactic Acid (Lac-Hydrin 12% Lotion (225 G)) 1 applic TOP BID [facility] Last Admin: 10/18/16 17:37 Dose: 1 applic Megestrol Acetate (Megace) 200 mg PO DAILY [facility] Last Admin: 10/18/16 08:47 Dose: 200 mg Minoxidil (Minoxidil) 5 mg PO BID [facility] Last Admin: 10/18/16 17:37 Dose: Not Given [id number] Ethyl Esters (Lovaza) 1 gm PO BID [facility] Last Admin: 10/18/16 17:37 Dose: 1 gm Pantoprazole Sodium (Protonix Ec Tab) 40 mg PO DAILY [facility] Last Admin: 10/18/16 08:45 Dose: 40 mg Paroxetine HCl (Paxil) 10 mg PO DAILY [facility] Last Admin: 10/18/16 08:46 Dose: 10 mg Sevelamer HCl (Renagel) 2,400 mg PO TIDWM [facility] Last Admin: 10/18/16 17:38 Dose: 2,400 mg Simethicone (Mylicon Chew Tab) 80 mg PO [facility] PRN PRN Reason: Heartburn Last Admin: 10/16/16 20:11 Dose: 80 mg Tamsulosin HCl (Flomax) 0.4 mg PO DAILY [facility] Last Admin: 10/18/16 17:37 Dose: 0.4 mg Tramadol HCl (Ultram) 50 mg PO Q8 PRN PRN Reason: Pain, moderate (4-7) Last Admin: 10/17/16 01:41 Dose: 50 mg Verapamil HCl (Calan Sr Tab) 120 mg PO DAILY [facility] Last Admin: 10/18/16 19:16 Dose: 120 mg Vitamin B Complex/Vit C/Folic Acid (Nephro-Garcia) 1 tab PO DAILY [facility] Last Admin: 10/18/16 08:47 Dose: 1 tab Physical Exam - Respiratory Exam Respiratory Exam: Clear to Auscultation Bilateral - Cardiovascular Exam Cardiovascular Exam: Irregular Rhythm, +S1, +S2 - Additional Findings Additional findings: EKG 10/15/16 ST, R 103, PACS, RBBB, LAD EKG TODAY DID NOT SHOW ATRIAL FIBRILLATION BUT SINUS RHYTHM WIDTH FREQUENT PACS AND P WAVES COULD CLEARLY BE SEEN ON CLOSE INSPECTION ALL HIS EKG RHYTHM STRIPS ON ADMISSION WERE REVIEWED AND HE HAS BEEN IN SINUS RHYTHM HIS RHYTHM STRIPS EARLIER TODAY SHOWED SINUS TACHYCARDIA UP TO THE 140'S WITH FREQUENT PACS, BUT HE IS NOW IN SINUS RHYTHM WITH CLEARLY SEEN P WAVES AND FREQUENT PACS K+ 3.9 TODAY CXR CLEAR LUNG ERWIN ATTENDING AND SUPERVIS[employer] NOTES REVIEWED RECENT ECHO WITH GOOD LV SYSTOLIC FUNCTION PHARMACOLOGICAL STRESS TEST DONE WITHIN THE LAST YEAR IS NEGATIVE Results - Vital Signs Recent Vital Signs: Last Vital Signs Temp 98.6 F 10/18/16 16:40 Pulse 111 H 10/18/16 19:16 Resp 20 10/18/16 16:40 BP 149/79 10/18/16 19:16 Pulse Ox 98 10/18/16 16:40 - Labs Result Diagrams: 10/18/16 06:35 10/18/16 14:30 Labs: Laboratory Results - last 24 hr 10/17/16 10/18/16 10/18/16 21:07 05:02 06:35 WBC 9.9 RBC 3.35 L Hgb 9.2 L Hct 27.7 L MCV 82.7 MCH 27.4 MCHC 33.2 RDW 15.4 H Plt Count 277 Sodium Potassium Chloride Carbon Dioxide Anion Gap BUN Creatinine Est GFR ( Amer) Est GFR (Non-Af Amer) POC Glucose (mg/dL) 272 H 224 H Random Glucose Calcium Total Bilirubin AST ALT Alkaline Phosphatase Total Protein Albumin Globulin Albumin/Globulin Ratio 10/18/16 10/18/16 10/18/16 06:35 11:17 14:30 WBC RBC Hgb Hct MCV MCH MCHC RDW Plt Count Sodium 131 L 136 Potassium 6.2 H* D 3.9 Chloride 97 L 96 L Carbon Dioxide 17 L 24 Anion Gap 23 H 20 BUN 100 H* D 53 H Creatinine 12.9 H* 7.2 H Est GFR ( Amer) 5 10 Est GFR (Non-Af Amer) 4 8 POC Glucose (mg/dL) 199 H Random Glucose 186 H 198 H Calcium 9.1 9.3 Total Bilirubin 1.3 AST 61 H D ALT 48 Alkaline Phosphatase 956 H D Total Protein 6.8 Albumin 3.2 L Globulin 3.5 Albumin/Globulin Ratio 0.9 L 10/18/16 16:13 WBC RBC Hgb Hct MCV MCH MCHC RDW Plt Count Sodium Potassium Chloride Carbon Dioxide Anion Gap BUN Creatinine Est GFR ( Amer) Est GFR (Non-Af Amer) POC Glucose (mg/dL) 243 H Random Glucose Calcium Total Bilirubin AST ALT Alkaline Phosphatase Total Protein Albumin Globulin Albumin/Globulin Ratio Assessment & Plan - Assessment and Plan (Free Text) Assessment: SINUS RHYTHM INCLUDING SINUS TACHYCARDIA WITH FREQUENT PACS-THE PATIENT IS NOT IN ATRIAL FIBRILLATION SINUS TACHYCARDIA AND FREQUENT PACS DUE TO REFUSAL TO TAKE VERAPAMIL TODAY HYPERTENSION HYPERLIPIDEMIA DM CRF ON HD PAD RECENT VASCULAR SURGERY WITH INFECTION Plan: I SPOKE TO THE PATIENT AND HE AGREES TO TAKE HIS VERAPAMIL TODAY THE PATIENT WAS AGAIN REMINDED TO TAKE HIS VERAPAMIL ON DIALYSIS DAYS AFTER THE HD IT WILL NOT LAST FOR 48 HOURS CONTINUE ELIQUIS, CLOPIDOGREL, MINOXIDIL, ATORVASTATIN, LOVAZA, INSULIN AND ANTIBIOTICS
--- NOTE | 2016-10-18 19:48 | CP.PCM.PN ---
Subjective - Date & Time of Evaluation Date of Evaluation: 10/18/16 Time of Evaluation: 15:00 - Subjective Subjective: SEEN ON RENAL F/U HAD K LEVEL AT 6.2 .. STAT HD WAS ORDERED FEELS BETTER CASE D/W ID OF THE OUT PT ANTIBIOTIC CHOICE Objective - Vital Signs/Intake and Output Vital Signs (last 24 hours): Temp Pulse Resp BP Pulse Ox 98.4 F 97 H 20 127/77 99 10/18/16 19:19 10/18/16 19:19 10/18/16 19:19 10/18/16 19:19 10/18/16 19:19 - Medications Medications: Current Medications Alprazolam (Xanax) 0.5 mg PO TID PRN PRN Reason: Anxiety Apixaban (Eliquis) 2.5 mg PO BID [facility] PRN Reason: Protocol Last Admin: 10/18/16 17:37 Dose: 2.5 mg Ascorbic Acid (Vitamin C 500 Mg Tab) 500 mg PO DAILY [facility] Last Admin: 10/18/16 08:45 Dose: 500 mg Atorvastatin Calcium (Lipitor) 20 mg PO HS [facility] Last Admin: 10/17/16 21:29 Dose: 20 mg Clopidogrel Bisulfate (Plavix) 75 mg PO DAILY [facility] Last Admin: 10/18/16 08:45 Dose: 75 mg Home Med (Febuxostat [Uloric]) 40 mg PO DAILY [facility] Hydromorphone HCl (Dilaudid) 1 mg IVP Q6H PRN PRN Reason: pain level 8-10 Last Admin: 10/18/16 01:01 Dose: 1 mg Linezolid (Zyvox 600mg/300ml D5w) 600 mg in 300 mls @ 300 mls/hr IVPB Q12 [facility] Last Admin: 10/18/16 09:00 Dose: Not Given Piperacillin Sod/Tazobactam (Sod 2.25 gm/ Sodium Chloride) 100 mls @ 100 mls/ hr IVPB Q6 [facility] Last Admin: 10/18/16 17:40 Dose: 100 mls/hr Insulin Detemir (Levemir) 20 units SC HS [facility] Insulin Human Regular (Humulin R) 0 units SC ACHS [facility] PRN Reason: Protocol Lactic Acid (Lac-Hydrin 12% Lotion (225 G)) 1 applic TOP BID [facility] Last Admin: 10/18/16 17:37 Dose: 1 applic Megestrol Acetate (Megace) 200 mg PO DAILY [facility] Last Admin: 10/18/16 08:47 Dose: 200 mg Minoxidil (Minoxidil) 5 mg PO BID [facility] Last Admin: 10/18/16 17:37 Dose: Not Given [id number] Ethyl Esters (Lovaza) 1 gm PO BID [facility] Last Admin: 10/18/16 17:37 Dose: 1 gm Pantoprazole Sodium (Protonix Ec Tab) 40 mg PO DAILY [facility] Last Admin: 10/18/16 08:45 Dose: 40 mg Paroxetine HCl (Paxil) 10 mg PO DAILY [facility] Last Admin: 10/18/16 08:46 Dose: 10 mg Sevelamer HCl (Renagel) 2,400 mg PO TIDWM [facility] Last Admin: 10/18/16 17:38 Dose: 2,400 mg Simethicone (Mylicon Chew Tab) 80 mg PO [facility] PRN PRN Reason: Heartburn Last Admin: 10/16/16 20:11 Dose: 80 mg Tamsulosin HCl (Flomax) 0.4 mg PO DAILY [facility] Last Admin: 10/18/16 17:37 Dose: 0.4 mg Tramadol HCl (Ultram) 50 mg PO Q8 PRN PRN Reason: Pain, moderate (4-7) Last Admin: 10/17/16 01:41 Dose: 50 mg Verapamil HCl (Calan Sr Tab) 120 mg PO DAILY [facility] Last Admin: 10/18/16 19:16 Dose: 120 mg Vitamin B Complex/Vit C/Folic Acid (Nephro-Garcia) 1 tab PO DAILY [facility] Last Admin: 10/18/16 08:47 Dose: 1 tab - Labs Labs: 10/18/16 06:35 10/18/16 14:30 PT 14.3 Seconds (9.8-13.1) H 10/15/16 11:31 INR 1.3 (0.9-1.2) H 10/15/16 11:31 APTT 34.1 Seconds (25.6-37.1) 10/15/16 11:31 Assessment and Plan - Assessment and Plan (Free Text) Assessment: ESRD ON HD M W F SEPSIS FROM AVG .. ON IVAB CARDIAC ARRHYTHMIAS .. SEEN BY DR GUEVARA C/O CURRENT CARE
[2016-10-18] MEDS: Insulin Regular 100 units/ml SC SCH (21:13)
[2016-10-18] MEDS ORDERED: Insulin Detemir 100 Units/ml Inj SC SCH (22:00)
--- NOTE | 2016-10-18 22:12 | PN ---
DATE: 10/18/2016 SUBJECTIVE: The patient is seen today, 10/18/2016. He is not in any cardiopulmonary distress. The patient is tachycardic as he refused to take his verapamil in the morning. OBJECTIVE: VITAL SIGNS: Blood pressure is 122/77, temperature 98.4, respiratory rate 20, and pulse 97. HEENT: Pupils equal, reactive to light. Normal-appearing mucosa of the conjunctivae, oropharyngeal and nasal membrane mucosa. NECK: Supple, no JVD, no carotid bruit, no lymph node, no thyromegaly. CHEST AND LUNGS: Bilateral symmetrical expansion, good air exchange, no rales, no rhonchi. CARDIOVASCULAR: PMI not localized. S1, S2. No additional sounds. ABDOMEN: Normoactive bowel sounds, no tenderness, no organomegaly, no masses. EXTREMITIES: No cyanosis, no clubbing. There is a right metatarsal amputation and the shunt on the left upper arm healing, the resolving infection at the site of the left upper arm shunt. CENTRAL NERVOUS SYSTEM: Alert, awake, oriented x 3. No could be appreciated. ASSESSMENT: 1. Infected shunt site at the left upper arm. 2. End-stage renal disease, on hemodialysis. 3. Type 2 diabetes mellitus. 4. Hypertension. 5. Sinus tachycardia with frequent premature atrial contractions. PLAN: Continue current medications and antibiotics as per ID. Advised patient to take verapamil, wh ich controlled his heart rate as per cardiology. patient's insulin and do Accu-Cheks with insu vernon coverage. Mildred Warren MD cc: [phone] TT: 10/18/2016 22:11:48 Confirmation # [id number] Dictation # [id number]
[2016-10-19 06:54] LABS: HEMATOCRIT 27.6 % (35.0-51.0); MEAN CELL VOLUME 82.8 fl (80.0-94.0); MEAN CORPUSCULAR HEMOGLOBIN 26.9 pg (27.0-31.0); MEAN CORPUSCULAR HGB CONC 32.5 g/dL (33.0-37.0); RED CELL DISTRIBUTION WIDTH 15.2 % (11.5-14.5); WHITE BLOOD COUNT 9.3 K/uL (4.8-10.8)
[2016-10-19 07:29] LABS: BILIRUBIN,TOTAL 1.3 mg/dl (0.2-1.3); CALCIUM 9.1 mg/dL (8.4-10.2); POTASSIUM 5.3 MMOL/L (3.6-5.0); TOTAL PROTEIN 6.8 G/DL (6.3-8.2)
[2016-10-19 07:59] LABS: ALB/GLOB RATIO 0.9 (1.0-2.1)
[2016-10-19] MEDS: Insulin Regular 100 units/ml SC SCH ×2 (08:58→11:52)
[2016-10-19] MEDS: Verapamil 120 mg ER Tab PO SCH (08:59)
[2016-10-19] MEDS: Multivitamin Vitamin B Complex (Nephro-Vite) Tab PO SCH (08:59)
[2016-10-19] MEDS: Pantoprazole 40 mg EC Tab PO SCH (08:59)
[2016-10-19] MEDS: Omega-3-Acid Ethyl Esters 1 GM Cap PO SCH (09:00)
[2016-10-19] MEDS: Megestrol Acetate 40 mg/ml Cup PO SCH (09:01)
[2016-10-19] MEDS: Linezolid 600 mg in D5W 300 ml 600 MG/300 ML BAG IVPB SCH (09:02)
--- NOTE | 2016-10-19 09:56 | CP.PCM.PN ---
Subjective - Date & Time of Evaluation Date of Evaluation: 10/19/16 Time of Evaluation: 08:45 - Subjective Subjective: NO CHEST PAIN, PALPITATIONS OR SOB Objective - Vital Signs/Intake and Output Vital Signs (last 24 hours): Temp Pulse Resp BP Pulse Ox 98.5 F 88 18 161/95 H 100 10/19/16 08:04 10/19/16 08:59 10/19/16 08:04 10/19/16 08:59 10/19/16 08:04 - Medications Medications: Current Medications Alprazolam (Xanax) 0.5 mg PO TID PRN PRN Reason: Anxiety Apixaban (Eliquis) 2.[address] [facility] PRN Reason: Protocol Last Admin: 10/19/16 08:59 Dose: 2.5 mg Ascorbic Acid (Vitamin C 500 Mg Tab) [address] [facility] Last Admin: 10/19/16 08:59 Dose: 500 mg Atorvastatin Calcium (Lipitor) [address] [facility] Last Admin: 10/18/16 21:15 Dose: 20 mg Clopidogrel Bisulfate (Plavix) [address] [facility] Last Admin: 10/19/16 09:00 Dose: 75 mg Home Med (Febuxostat [Uloric]) [address] [facility] Hydromorphone HCl (Dilaudid) 1 mg IVP Q6H PRN PRN Reason: pain level 8-10 Last Admin: 10/19/16 09:42 Dose: 1 mg Linezolid (Zyvox 600mg/300ml D5w) 600 mg in 300 mls @ 300 mls/hr IVPB Q12 [facility] Last Admin: 10/19/16 09:02 Dose: 300 mls/hr Piperacillin Sod/Tazobactam (Sod 2.25 gm/ Sodium Chloride) 100 mls @ 100 mls/ hr IVPB Q6 [facility] Last Admin: 10/19/16 09:08 Dose: 100 mls/hr Insulin Detemir (Levemir) [address] [facility] Last Admin: 10/18/16 21:15 Dose: 20 unit Insulin Human Regular (Humulin R) 0 units SC ACHS [facility] PRN Reason: Protocol Last Admin: 10/19/16 08:58 Dose: 3 units Lactic Acid (Lac-Hydrin 12% Lotion (225 G)) [address] [facility] Last Admin: 10/19/16 08:56 Dose: 1 applic Megestrol Acetate (Megace) [address] [facility] Last Admin: 10/19/16 09:01 Dose: 200 mg Minoxidil (Minoxidil) [address] [facility] Last Admin: 10/19/16 09:00 Dose: 5 mg [id number] Ethyl Esters (Lovaza) [address] [facility] Last Admin: 10/19/16 09:00 Dose: 1 gm Pantoprazole Sodium (Protonix Ec Tab) [address] [facility] Last Admin: 10/19/16 08:59 Dose: 40 mg Paroxetine HCl (Paxil) [address] [facility] Last Admin: 10/19/16 09:00 Dose: 10 mg Sevelamer HCl (Renagel) 2,[address] [facility] Last Admin: 10/19/16 08:58 Dose: 2,400 mg Simethicone (Mylicon Chew Tab) 80 mg PO [facility] PRN PRN Reason: Heartburn Last Admin: 10/16/16 20:11 Dose: 80 mg Tamsulosin HCl (Flomax) 0.[address] [facility] Last Admin: 10/19/16 08:59 Dose: 0.4 mg Tramadol HCl (Ultram) 50 mg PO Q8 PRN PRN Reason: Pain, moderate (4-7) Last Admin: 10/17/16 01:41 Dose: 50 mg Verapamil HCl (Calan Sr Tab) [address] [facility] Last Admin: 10/19/16 08:59 Dose: 120 mg Vitamin B Complex/Vit C/Folic Acid (Nephro-Garcia) [address] 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
[2016-10-19 12:14] VITALS: BP 165/81; PULSE 86; RESP 20; TEMP 98.7; O2SAT 97
--- NOTE | 2016-10-19 13:23 | CP.PCM.PN ---
Subjective - Date & Time of Evaluation Date of Evaluation: 10/19/16 Time of Evaluation: 13:14 - Subjective Subjective: Patient has no immediate complaints or acute issues at present Objective - Vital Signs/Intake and Output Vital Signs (last 24 hours): Temp Pulse Resp BP Pulse Ox 98.7 F 86 20 165/81 H 97 10/19/16 12:13 10/19/16 12:13 10/19/16 12:13 10/19/16 12:13 10/19/16 12:13 - Medications Medications: Current Medications Alprazolam (Xanax) 0.5 mg PO TID PRN PRN Reason: Anxiety Apixaban (Eliquis) 2.5 mg PO BID [facility] PRN Reason: Protocol Last Admin: 10/19/16 08:59 Dose: 2.5 mg Ascorbic Acid (Vitamin C 500 Mg Tab) 500 mg PO DAILY [facility] Last Admin: 10/19/16 08:59 Dose: 500 mg Atorvastatin Calcium (Lipitor) 20 mg PO HS [facility] Last Admin: 10/18/16 21:15 Dose: 20 mg Clopidogrel Bisulfate (Plavix) 75 mg PO DAILY [facility] Last Admin: 10/19/16 09:00 Dose: 75 mg Home Med (Febuxostat [Uloric]) 40 mg PO DAILY [facility] Hydromorphone HCl (Dilaudid) 1 mg IVP Q6H PRN PRN Reason: pain level 8-10 Last Admin: 10/19/16 09:42 Dose: 1 mg Linezolid (Zyvox 600mg/300ml D5w) 600 mg in 300 mls @ 300 mls/hr IVPB Q12 [facility] Last Admin: 10/19/16 09:02 Dose: 300 mls/hr Piperacillin Sod/Tazobactam (Sod 2.25 gm/ Sodium Chloride) 100 mls @ 100 mls/ hr IVPB Q6 [facility] Last Admin: 10/19/16 09:08 Dose: 100 mls/hr Insulin Detemir (Levemir) 20 units SC HS [facility] Last Admin: 10/18/16 21:15 Dose: 20 unit Insulin Human Regular (Humulin R) 0 units SC ACHS [facility] PRN Reason: Protocol Last Admin: 10/19/16 11:52 Dose: 4 units Lactic Acid (Lac-Hydrin 12% Lotion (225 G)) 1 applic TOP BID [facility] Last Admin: 10/19/16 08:56 Dose: 1 applic Megestrol Acetate (Megace) 200 mg PO DAILY [facility] Last Admin: 10/19/16 09:01 Dose: 200 mg Minoxidil (Minoxidil) 5 mg PO BID [facility] Last Admin: 10/19/16 09:00 Dose: 5 mg [id number] Ethyl Esters (Lovaza) 1 gm PO BID [facility] Last Admin: 10/19/16 09:00 Dose: 1 gm Pantoprazole Sodium (Protonix Ec Tab) 40 mg PO DAILY [facility] Last Admin: 10/19/16 08:59 Dose: 40 mg Paroxetine HCl (Paxil) 10 mg PO DAILY [facility] Last Admin: 10/19/16 09:00 Dose: 10 mg Sevelamer HCl (Renagel) 2,400 mg PO TIDWM [facility] Last Admin: 10/19/16 12:49 Dose: 2,400 mg Simethicone (Mylicon Chew Tab) 80 mg PO [facility] PRN PRN Reason: Heartburn Last Admin: 10/16/16 20:11 Dose: 80 mg Tamsulosin HCl (Flomax) 0.4 mg PO DAILY [facility] Last Admin: 10/19/16 08:59 Dose: 0.4 mg Tramadol HCl (Ultram) 50 mg PO Q8 PRN PRN Reason: Pain, moderate (4-7) Last Admin: 10/17/16 01:41 Dose: 50 mg Verapamil HCl (Calan Sr Tab) 120 mg PO DAILY [facility] Last Admin: 10/19/16 08:59 Dose: 120 mg Vitamin B Complex/Vit C/Folic Acid (Nephro-Garcia) 1 tab PO DAILY [facility] Last Admin: 10/19/16 08:59 Dose: 1 tab - Labs Labs: 10/19/16 06:00 10/19/16 06:00 PT 14.3 Seconds (9.8-13.1) H 10/15/16 11:31 INR 1.3 (0.9-1.2) H 10/15/16 11:31 APTT 34.1 Seconds (25.6-37.1) 10/15/16 11:31 - Constitutional Appears: Non-toxic, No Acute Distress - Head Exam Head Exam: NORMAL INSPECTION - Eye Exam Eye Exam: Normal appearance Pupil Exam: PERRL - ENT Exam ENT Exam: Mucous Membranes Moist - Neck Exam Neck Exam: Normal Inspection - Respiratory Exam Respiratory Exam: NORMAL BREATHING PATTERN - Cardiovascular Exam Cardiovascular Exam: REGULAR RHYTHM - GI/Abdominal Exam GI & Abdominal Exam: Normal Bowel Sounds - Extremities Exam Extremities Exam: Normal Inspection (left upper extremity is warm with no signs clinical signs of ischemia or arterial steal) - Skin Skin Exam: Normal Color - Additional Findings Additional findings: Surgical incisions involving left arm and chest appear to be healing well with no erythema, cellulitis or discharge. There is palpable thrill in the left dialysis graft. Assessment and Plan - Assessment and Plan (Free Text) Assessment: Patient is doing quite well from surgical standpoint. He feels much better since his admission to the hospital. He tolerates dialysis well and his HeRo graft functions well. At present there is no apparent evidence of dialysis graft infection. Plan: Continue medical management. Discharge planning per medical team. Patient will follow with Dr. Julien for dialysis catheter maintenance as an outpatient.
--- NOTE | 2016-10-19 16:46 | CARD ---
APPROVED REPORT EKG Measurement Heart [id number] <Conclusion> Atrial fibrillation with rapid ventricular response Left axis deviation Right bundle branch block Abnormal ECG
--- NOTE | 2016-10-20 03:19 | DS ---
REASON FOR ADMISSION: The patient is a 51-year-old male with history of multiple medical pr oblems, who was admitted for infected left upper arm shunt. COURSE OF HOSPITALIZATION: The patient was admitted to medical floor, and he had an ID and surgical consult done. The patient was started on antibiotics, both Zyvox and Fortaz. The patient responded well and pain and swelling and discharge completely stopped on the area over of the shunt on th e left upper arm. The patient had an ID consult that recommended to continue p.o. Zyvox as an outpat ient and continue Fortaz postdialysis for another 2 weeks and discharge patient home to continue prea dmission medications. FINAL DIAGNOSES: 1. Infected left upper arm shunt. 2. Hypertension. 3. Type 2 diabetes mellitus. 4. End-stage renal disease, on hemodialysis. Mildred Warren MD cc: 167 TT: 10/20/2016 03:19:04 il
== END 2016-10-19 15:00 | disposition home or self-care (01) | DRG 314 ==
LOC: H.ER 10:15 → H.ERHOLD 13:58 → H.TEL 15:44
PROVIDERS: ADMIT Internal Medicine; ATTEND Internal Medicine
PROC: 5A1D60Z (ICD-10-PCS; principal; 2016-10-16)
DX: T82.7XXA Infection and inflammatory reaction due to other cardiac and vascular devices, implants and grafts, initial encounter (principal); N18.6 End stage renal disease; A41.9 Sepsis, unspecified organism; I12.0 Hypertensive chronic kidney disease with stage 5 chronic kidney disease or end stage renal disease; E11.22 Type 2 diabetes mellitus with diabetic chronic kidney disease; I48.91 Unspecified atrial fibrillation; D63.1 Anemia in chronic kidney disease; E11.40 Type 2 diabetes mellitus with diabetic neuropathy, unspecified; Z99.2 Dependence on renal dialysis; I49.1 Atrial premature depolarization; R00.0 Tachycardia, unspecified; T39.8X5A Adverse effect of other nonopioid analgesics and antipyretics, not elsewhere classified, initial encounter; E78.5 Hyperlipidemia, unspecified; M81.0 Age-related osteoporosis without current pathological fracture; I73.9 Peripheral vascular disease, unspecified; E78.00 Pure hypercholesterolemia, unspecified; K21.9 Gastro-esophageal reflux disease without esophagitis; G47.30 Sleep apnea, unspecified; K29.70 Gastritis, unspecified, without bleeding; F41.9 Anxiety disorder, unspecified; Z89.421 Acquired absence of other right toe(s); Z88.1 Allergy status to other antibiotic agents; Z88.8 Allergy status to other drugs, medicaments and biological substances; Z79.02 Long term (current) use of antithrombotics/antiplatelets; Z87.440 Personal history of urinary (tract) infections; Z87.442 Personal history of urinary calculi; Y92.230 Patient room in hospital as the place of occurrence of the external cause

== ENCOUNTER 2016-12-10 03:48 | Inpatient (IN) | payer MEDICARE, MEDICAID ==
[2016-12-10 03:49] VITALS: BMI 25.0
[2016-12-10 04:52] LABS: BASO # 0.1 K/uL (0.0-0.2); BASO % 0.6 % (0.0-2.0); EOS # 0.2 K/uL (0.0-0.7); EOS % 1.8 % (0.0-4.0); HEMATOCRIT 40.9 % (35.0-51.0); LYMPH # 1.5 K/uL (1.0-4.3); LYMPH % 14.3 % (20.0-40.0); MEAN CELL VOLUME 83.7 fl (80.0-94.0); MEAN CORPUSCULAR HEMOGLOBIN 26.8 pg (27.0-31.0); MEAN PLATELET VOLUME 7.7 fl (7.2-11.7); MONO # 1.1 K/uL (0.0-0.8); MONO % 10.5 % (0.0-10.0); NEUT # 7.4 K/uL (1.8-7.0); NEUT % 72.8 % (50.0-75.0); RED CELL DISTRIBUTION WIDTH 17.1 % (11.5-14.5); WHITE BLOOD COUNT 10.1 K/uL (4.8-10.8)
[2016-12-10 05:04] LABS: ALB/GLOB RATIO 1.3 (1.0-2.1); ALKALINE PHOSPHATASE 418 U/L (38-126); ALT/SGPT 39 U/L (21-72); AST/SGOT 25 U/L (17-59); BILIRUBIN,TOTAL 0.9 mg/dl (0.2-1.3); BLOOD UREA NITROGEN 65 mg/dl (9-20); CALCIUM 8.6 mg/dL (8.4-10.2); CARBON DIOXIDE 23 mmol/L (22-30); CHLORIDE 96 mmol/L (98-107); GFR AFRICAN-AMERICAN 7; GLUCOSE,RANDOM 194 mg/dL (75-110); LIPASE 86 U/L (23-300); POTASSIUM 4.6 MMOL/L (3.6-5.0); SODIUM 138 mmol/l (132-148); TOTAL PROTEIN 8.3 G/DL (6.3-8.2)
[2016-12-10] MEDS ORDERED: Morphine 4 MG/ML VIAL IVP ONE (05:25)
[2016-12-10] MEDS ORDERED: Sodium Chloride 0.9% 50 ML IV ONE (06:08)
[2016-12-10] MEDS ORDERED: Iodixanol 320 MG/ML 100 ML BOTTLE IV ONE (06:08)
--- NOTE | 2016-12-10 06:22 | ED PDOC ---
HPI: Abdomen Time Seen by Provider: 12/10/16 04:13 Chief Complaint (Nursing): Abdominal Pain Chief Complaint (Provider): Abdominal Pain and Chest Pain History Per: Patient History/Exam Limitations: no limitations Current Symptoms Are (Timing): Constant Location Of Pain/Discomfort: Epigastric Associated Symptoms: Nausea, Constipation. denies: Vomiting, Diarrhea Additional Complaint(s): Akash Appiah, a 51 year old female, who has end stage renal failure, presents to the ED complaining of abdominal pain and chest pain. The patient states that the pain is constant in her epigastric area but radiates to her chest. Denies difficulty breathing, vomiting and diarrhea but does note some constipation and nausea. The patient also reports that she has chronic body pain for which she takes percocet. Patient currently has dialysis every Tuesday, Tuesday and Tuesday. Help Desk Intern: Dr. Mix PMD: Dr. Candelario Past Medical History Reviewed: Historical Data, Nursing Documentation, Vital Signs Vital Signs: Last Vital Signs Temp 99.8 F H 12/10/16 03:56 Pulse 88 12/10/16 03:56 Resp 16 12/10/16 03:56 BP 195/97 H 12/10/16 03:56 Pulse Ox 100 12/10/16 06:54 - Medical History PMH: Anemia, Anxiety, Arthritis, Atrial Fibrillation, Cardia Arrhythmia, Depression, Diabetes (type II), Gastritis, GERD, HTN, Hypercholesterolemia, Kidney Stones, Osteoporosis, Peripheral Edema, End Stage Renal Disease, Chronic Kidney Disease, Sleep Apnea Denies: CHF, Fractures, Hypothyroidism - Surgical History Surgical History: Appendectomy, Endoscopy Other surgeries: Feet TMT amputations - Family History Family History: States: Hypertension - Home Medications Home Medications: Ambulatory Orders Medication Instructions Recorded Acetaminophen/Oxycodone Hydr 1 tab PO Q6H PRN 05/24/16 [Percocet 10/325 mg Tab] Ammonium Lactate 12% [Lac-Hydrin 1 appl TOP BID 05/24/16 12% Lotion (225 g)] Apixaban [Eliquis] 2.5 mg PO BID 05/24/16 Atorvastatin [Lipitor] 20 mg PO HS 05/24/16 Clopidogrel [Plavix] 75 mg PO DAILY 05/24/16 Esomeprazole Magnesium [Nexium] 40 mg PO DAILY 05/24/16 Febuxostat [Uloric] 40 mg PO DAILY 05/24/16 Megestrol Acetate [Megace] 5 ml PO Q6H 05/24/16 Minoxidil 2.5 mg PO BID 05/24/16 [id number] Ethyl Esters 1 GM 1 gm PO BID 05/24/16 [Lovaza] Sevelamer Carbonate [Renvela] 2,400 mg PO TID 05/24/16 Tamsulosin [Flomax] 0.4 mg PO DAILY 05/24/16 Vitamin B Complex/Vit C/Folic 1 tab PO DAILY 05/24/16 [Nephro-Garcia] Alprazolam [Xanax] 0.5 mg PO TID PRN 07/19/16 Insulin Aspart, Recombinant 5 unit SC TID 07/19/16 [Novolog] Insulin Detemir [Levemir] 20 unit SC HS 07/19/16 PARoxetine [Paxil] 10 mg PO DAILY 07/19/16 Ropinirole HCl [Requip] 2 mg PO QAM 10/15/16 Verapamil HCl [Verapamil Sr] 120 mg PO DAILY 10/15/16 Amino Acids/Protein Hydrolys 60 ml PO DAILY 12/10/16 [Liquacel 100 Liquid Protein] Atropine/Diphenoxylate [Lomotil 2 tab PO BID PRN 12/10/16 0.025-2.5 mg tablet] rOPINIRole [Requip] 3 mg PO HS 12/10/16 - Allergies Allergies/Adverse Reactions: Allergies Allergy/AdvReac Type Severity Reaction Status Date / Time hydromorphone HCl Allergy WHEEZING Verified 12/31/15 18:30 [From Dilaudid] ketorolac [From Toradol] Allergy RASH Verified 10/16/16 06:32 propoxyphene napsylate Allergy RASH Verified 12/31/15 18:30 [From Darvocet-N] vancomycin AdvReac RASH Verified 12/31/15 18:30 Review of Systems Cardiovascular: Positive for: Chest Pain Gastrointestinal: Positive for: Nausea, Abdominal Pain (Epigastric pain), Constipation. Negative for: Vomiting, Diarrhea Physical Exam - Reviewed Nursing Documentation Reviewed: Yes Vital Signs Reviewed: Yes - Physical Exam Appears: Positive for: Uncomfortable (In some distress from pain) Head Exam: Positive for: ATRAUMATIC, NORMAL INSPECTION, NORMOCEPHALIC Skin: Positive for: Normal Color, Warm, Dry Eye Exam: Positive for: Normal appearance, EOMI, PERRL ENT: Positive for: Normal ENT Inspection Neck: Positive for: Normal, Painless ROM, Supple Cardiovascular/Chest: Positive for: Regular Rate, Rhythm, Chest Non Tender. Negative for: Tachycardia Respiratory: Positive for: Normal Breath Sounds. Negative for: Wheezing, Respiratory Distress Gastrointestinal/Abdominal: Positive for: Soft, Tenderness (Epigastric tenderness). Negative for: Distended, Guarding, Rebound Extremity: Positive for: Normal ROM (Shunt on left upper arm; no swelling; no erythema.). Negative for: Pedal Edema, Deformity, Swelling Neurologic/Psych: Positive for: Alert, Oriented, Gait - Laboratory Results Result Diagrams: 12/10/16 04:49 12/10/16 04:49 - ECG O2 Sat by Pulse Oximetry: 100 (RA) Pulse Ox Interpretation: Normal Medical Decision Making Medical Decision Makin Initial Impression: 51 year old male presenting with abdominal pain and chest pain Differentials: Small bowel obstruction, Gastritis, Pancreatitis, Rule out ACS Initial Plan: * CT ABD&PELV * CT Chest, ABD, PELV w/o Contrast * EKG * Comp Metabolic Panel * Lipase * Troponin * CBC * Chest Xray * Morphine 4mg IVP * Pepcid 20mg IVP * Reglan 10mg NS 50ml IVPB * Zofran 4mg IVP * Blood culture * Reevaluation Patient is scheduled for dialysis today. EKG Performed * Sinus rhythm branch bundle block * Non specific T wave abnormalities * Normal sinus rhythm - rate 89 ____ Scribe Attestation Documented by Peggy Mooney acting as a scribe for Nehal Arrington MD. Provider Attestation All medical record entries made by the Scribe were at my direction and personally dictated by me. I have reviewed the chart and agree that the record accurately reflects my personal performance of the history, physical exam, medical decision making, and the department course for this patient. I have also personally directed, reviewed, and agree with the discharge instructions and disposition. Disposition - Clinical Impression Clinical Impression: Renal failure, Abdominal pain, Chest pain - Patient ED Disposition Is Patient to be Admitted: Transfer of Care Counseled Patient/Family Regarding: Studies Performed, Diagnosis - Disposition Disposition: Transfer of Care Disposition Time: 07:00 Condition: FAIR Patient Signed Over To: Bryson Boykin Jr.
--- NOTE | 2016-12-10 07:52 | RAD ---
HISTORY: chest pain COMPARISON: Chest x-ray performed 10/15/16 TECHNIQUE: Chest, one view. FINDINGS: Right subclavian/ upper extremity vascular stent. Left tunneled central venous dialysis catheter. Examination limited by patient obliquity, hypoinflation, and habitus. LUNGS: Biapical pleural thickening. No focal consolidation. Please note that chest x-ray has limited sensitivity for the detection of pulmonary masses. PLEURA: No significant pleural effusion identified. No definite pneumothorax . CARDIOVASCULAR: Heart size appears top normal. OSSEOUS STRUCTURES: No acute osseous abnormality identified. VISUALIZED UPPER ABDOMEN: Unremarkable. OTHER FINDINGS: None. IMPRESSION: Limited study. No acute findings appreciated. See above.
--- NOTE | 2016-12-10 07:57 | ED PDOC ---
- Laboratory Results Result Diagrams: 12/10/16 04:49 12/10/16 04:49 - ECG O2 Sat by Pulse Oximetry: 99 (RA) Pulse Ox Interpretation: Normal Medical Decision Making Medical Decision Making: Time:07:00 --Patient was transferred from Dr. Arrington to [facility]. --Pending Ct Chest and Abdomen Time: 07:30 --Ct Chest/Abdomen FINDINGS: ABDOMEN: Liver: Unremarkable. No mass. Gallbladder and bile ducts: Unremarkable. No calcified stones. No ductal dilation. Pancreas: Unremarkable. No mass. No ductal dilation. Spleen: Unremarkable. No splenomegaly. Adrenals: Unremarkable. No mass. Kidneys and ureters: The [place] kidneys are severely atrophic with punctate calcifications. 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 No hydronephrosis or obstructing urinary stone. There is diffuse sclerosis of the skeleton, likely secondary to end stage renal disease. Stomach and bowel: In the left lateral abdomen, there is focal moderate small bowel dilatation with a large amount of formed fecal content and moderate surrounding mesenteric fat haziness, suggesting small bowel obstruction with associated mesenteric edema/inflammation. There is wall thickening of the distal stomach, possibly an artifact due to incomplete distention. Appendix: The appendix is not visualized with certainty. There is no emeka pericecal inflammation or or pericecal fluid collection to suggest appendicitis. (Please note that acute appendicitis cannot be completely excluded without the visualization of a normal appendix). PELVIS: Bladder: The bladder is collapsed. There is moderate bladder wall thickening, probably an artifact due to incomplete distention. Reproductive: Unremarkable as visualized. ABDOMEN and PELVIS: Intraperitoneal space: Unremarkable. No free air. No significant fluid collection. Bones/joints : There are skeletal degenerative changes. Vasculature: There are extensive atherosclerotic calcifications. There is no aortic aneurysm or dissection. Lymph nodes: Unremarkable. No enlarged lymph nodes. IMPRESSION: 1. In the left lateral abdomen, there is focal moderate small bowel dilatation with a large amount of formed fecal content and moderate surrounding mesenteric fat haziness , suggesting small bowel obstruction with associated mesenteric edema/ inflammation. Because of the focal nature of the bowel dilatation, focal mesentery volvulus, mesenteric lesion, or an internal hernia should be considered. 2. The bladder is collapsed. There is moderate bladder wall thickening, probably an artifact due to incomplete distention. Cystitis cannot be excluded. 3. There is wall thickening of the distal stomach, possibly an artifact due to incomplete distention. Gastritis or an infiltrative tumor cannot be excluded. --CT shows small bowel obstruction, will admit patient. Dr. Del Moise MD has been paged. Time: 07:58 --Spoke with Dr. Moise who advised consult with Dr. Tirso Hung MD and and Dr. Leslie Pinto MD. Time: 08:01 --Discussed case with Dr. Lexy Hung MD and renal attendant Dr. Leslie Pinto MD and is aware of patients admission. --Admitted as In-Patient in Telemetry under the care of Dr. Del Moise. Clinical Impression: Abdominal pain, small bowel obstruction, renal failure, and chest pain Scribe Attestation: Documented by Clara Newman, acting as a scribe for Bryson Boykin MD. Provider Scribe Attestation: All medical record entries made by the Scribe were at my direction and personally dictated by me. I have reviewed the chart and agree that the record accurately reflects my personal performance of the history, physical exam, medical decision making, and the department course for this patient. I have also personally directed, reviewed, and agree with the discharge instructions and disposition. Disposition - Clinical Impression Clinical Impression: Renal failure, Abdominal pain, Chest pain, Small bowel obstruction - POA Present On Arrival: None - Disposition Disposition: Admitted as In-Patient Disposition Time: 08:01 Condition: GUARDED Progress Note - Review of Symptoms Events since last encounter: 9:03 AM - Pt s/o to me by overnight ED attending. Sign out was to check CT scan result. CT shows small bowel obstruction. Pt still in pain--I have ordered more pain medication. Dr. Moise is compo conveyor operator. I spoke to Dr. Moise and he recommends admitting pt to his service and to use Dr. Morgan as surgery consult and Dr. Pinto for nephrology. residential specialist is at the bedside and will follow up with Dr. Morgan. I did speak to Dr. Pinto and he is aware that pt is due for dialysis today.
[2016-12-10] MEDS ORDERED: Labetalol 5 mg/ml Inj 20ML IVP STA (09:08)
--- NOTE | 2016-12-10 09:13 | CP.PCM.CON ---
<Clement Najera - Last Filed: 12/13/16 07:47> History of Present Illness - History of Present Illness History of Present Illness: Surgery Consult Note. Dr. Hung 51yo M with PMHx of Atrial Fib, Arthritis, ESRD on HD, DM, HTN, here for evaluation of abdominal pain. Patient states that the pain started yesterday at 3PM, located in the left side and middle abdomen. It is described as crampy, waxing and waning, severe abd pain. He states that he ate rice and beans about an hour prior to pain onset. He had a BM at 3PM, Denies any stool caliber changes, no blood, not dark stool. States that the pain has been going on since then, and he has not gotten any relief. Has not passed any flatus or had any BMs since. Denies any F/C. Does c/o belching, and feeling nauseous. Denies any vomiting. No CP/SOB. No headaches. PMHx: HTN, DM, ESRD on HD MWF, A fib, Arthritis PSHx: Cataracts, Renal Transplant x2 at [facility], Right foot TMA, Left arm HeRO placement. Family Hx: Mother - DM, HTN. Social Hx: Denies tobacco, Denies ETOH, Denies illicit drugs. Disabled Review of Systems - Review of Systems All systems: reviewed and no additional remarkable complaints except - Constitutional Constitutional: absent: Chills, Fever - Cardiovascular Cardiovascular: absent: Chest Pain, Dyspnea - Gastrointestinal Gastrointestinal: Abdominal Pain, Belching, Bloating, Constipation, Cramping, Nausea. absent: Diarrhea, Dysphagia, Hematemesis - Musculoskeletal Musculoskeletal: absent: Muscle Weakness, Stiffness - Neurological Neurological: absent: Dizziness, Numbness Past Patient History - Infectious Disease Hx of Infectious Diseases: None - Tetanus Immunizations Tetanus Immunization: Unknown - Past Medical History & Family History Past Medical History?: Yes - Past Social History Smoking Status: Never Smoked - CARDIAC Hx Atrial Fibrillation: Yes Hx Cardia Arrhythmia: Yes Hx Congestive Heart Failure: No Hx Hypercholesterolemia: Yes Hx Hypertension: Yes Hx Peripheral Edema: Yes - PULMONARY Hx Sleep Apnea: Yes - NEUROLOGICAL Hx Neurological Disorder: No Other/Comment: Hx Diabetic neuropathy - HEENT Hx HEENT Problems: No Hx Cataracts: Yes (Bilateral) Hx Epistaxis: Yes - RENAL Hx Chronic Kidney Disease: Yes Hx Kidney Stones: Yes - ENDOCRINE/METABOLIC Hx Hypothyroidism: No - HEMATOLOGICAL/ONCOLOGICAL Hx Anemia: Yes - INTEGUMENTARY Hx Dermatological Problems: No Hx Cellulitis: Yes Other/Comment: Pt. had all toenails 10 toenails removed at the age of 14 due to pain - MUSCULOSKELETAL/RHEUMATOLOGICAL Hx Arthritis: Yes Hx Fractures: No Hx Osteoporosis: Yes - GASTROINTESTINAL Hx Gastritis: Yes - GENITOURINARY/GYNECOLOGICAL Hx Genitourinary Disorders: No Hx Prostate Problems: Yes Hx Urinary Tract Infection: Yes Other/Comment: Anuric due to kidney condition, confirmed by mother patient has no kidneys - PSYCHIATRIC Hx Anxiety: Yes Hx Depression: Yes - SURGICAL HISTORY Hx Appendectomy: Yes - ANESTHESIA Hx Anesthesia: Yes Hx Anesthesia Reactions: Yes (AWAKE DURING THE SURGERY) Hx Malignant Hyperthermia: No Meds Allergies/Adverse Reactions: Allergies Allergy/AdvReac Type Severity Reaction Status Date / Time hydromorphone HCl Allergy WHEEZING Verified 12/31/15 18:30 [From Dilaudid] ketorolac [From Toradol] Allergy RASH Verified 10/16/16 06:32 propoxyphene napsylate Allergy RASH Verified 12/31/15 18:30 [From Darvocet-N] vancomycin AdvReac RASH Verified 12/31/15 18:30 - Medications Medications: Current Medications Famotidine (Pepcid) 20 mg IVP Q12 PATRIZIA Sodium Chloride (Sodium Chloride 0.9%) 1,000 mls @ 120 mls/hr IV .Q8H20M PATRIZIA Stop: 12/11/16 09:02 Labetalol HCl (Trandate) 20 mg IVP STAT STA Stop: 12/10/16 09:09 Morphine Sulfate (Morphine) 6 mg IVP STAT STA Stop: 12/10/16 09:03 Morphine Sulfate (Morphine) 8 mg IVP Q4 PRN PRN Reason: Pain, moderate (4-7) Ondansetron HCl (Zofran Inj) 4 mg IVP Q4 PRN PRN Reason: Nausea/Vomiting Ondansetron HCl (Zofran Inj) 4 mg IVP Q4 PRN PRN Reason: Nausea/Vomiting Physical Exam - Constitutional Appears: Well, No Acute Distress - Head Exam Head Exam: ATRAUMATIC, NORMAL INSPECTION, NORMOCEPHALIC - Eye Exam Eye Exam: EOMI - ENT Exam ENT Exam: Mucous Membranes Moist - Neck Exam Neck exam: Positive for: Normal Inspection - GI/Abdominal Exam Additional comments: Multiple scars with skin retraction at lower abdomen. Large pannus. Tender to palpation left upper and middle abdomen. Soft, non-distended - Extremities Exam Extremities exam: Positive for: normal inspection. Negative for: calf tenderness Additional comments: Right TMA - Neurological Exam Neurological exam: Alert, Oriented x3 - Psychiatric Exam Psychiatric exam: Anxious - Skin Skin Exam: Dry, Intact, Normal Color, Warm Results - Vital Signs Recent Vital Signs: Last Vital Signs Temp 98.6 F 12/10/16 07:32 Pulse 98 H 12/10/16 08:25 Resp 20 12/10/16 08:25 BP 207/116 H 12/10/16 08:25 Pulse Ox 99 12/10/16 09:05 - Labs Result Diagrams: 12/10/16 04:49 12/10/16 04:49 Assessment & Plan - Assessment and Plan (Free Text) Assessment: 51yo M with PMHx of Renal Transplant, ESRD here with SBO - CT- Focal moderate small bowel dilatation. - NPO, Bowel rest - IVF - Pain management - If patient condition worsens, starts to vomit, may require NG tube decompression - Continue to medically maximize as per nephro and primary teams Further recs as per Dr. Anabell Najera PGY1 <Tirso Hung - Last Filed: 12/14/16 20:11> Results - Vital Signs Recent Vital Signs: Last Vital Signs Temp 98.4 F 12/14/16 12:20 Pulse 85 12/14/16 13:46 Resp 20 12/14/16 12:20 BP 158/91 H 12/14/16 13:46 Pulse Ox 97 12/14/16 12:20 - Labs Result Diagrams: 12/13/16 04:44 12/13/16 04:44 Attending/Attestation - Attestation I have personally seen and examined this patient.: Yes I have fully participated in the care of the patient.: Yes I have reviewed all pertinent clinical information: Yes Notes (Text): 12/14/16 20:11 Pt was seen and examined at bedside on 12/10/16 Agree with above note and assessment Pt with SBO due to Enteritis or Adhesions CT scan and Labs reviewed NG to LIS NPO, IVF IV antibiotics Plan d.w pt in detail. Risk and benefit explained in detail.
[2016-12-10] MEDS ORDERED: Sodium Chloride 0.9% 1,000 ML IV SCH (09:15)
--- NOTE | 2016-12-10 09:39 | CT ---
PROCEDURE: CT Chest, Abdomen and Pelvis with intravenous contrast HISTORY: chest and abdominal pain COMPARISON: 05/31/2016 TECHNIQUE: IV dose administered: 95 mL Visipaque 320 Radiation dose: Total exam DLP = 1440.99 mGy-cm. This CT exam was performed using one or more of the following dose reduction techniques: Automated exposure control, adjustment of the mA and/or kV according to patient size, and/or use of iterative reconstruction technique. FINDINGS: CT CHEST WITH CONTRAST: LUNGS: Minimal bilateral lower lobe linear scar/ atelectasis. No pulmonary infiltrate. No pulmonary mass. MEDIASTINUM: No evidence of thoracic aortic aneurysm. Dilatation of the main pulmonary artery to a diameter of approximately 3.5 cm. This may correlate with pulmonary arterial hypertension. Mild cardiomegaly. Coronary arterial calcification. LYMPH NODES: There is mild mediastinal lymphadenopathy as on prior examination. Few mildly enlarged paratracheal and AP window nodes are evident. PLEURA: Unremarkable. No pneumothorax. No pleural fluid. BONES: Unremarkable. OTHER FINDINGS: None. CT ABDOMEN AND PELVIS: LIVER: Mild hepatomegaly. Mild periportal edema, nonspecific. No mass. No intrahepatic biliary ductal dilatation. GALLBLADDER AND BILE DUCTS: Unremarkable. PANCREAS: Unremarkable. No gross lesion or ductal dilatation. SPLEEN: Mild splenomegaly. Spleen measures 13.2 cm in greatest dimension. No focal mass. ADRENALS: Unremarkable. No mass. KIDNEYS AND URETERS: Kidneys are markedly atrophic with extensive calcification consistent with end-stage renal disease. Transplant kidney in the right iliac fossa is again noted. No hydronephrosis. 1.5 cm rounded low-attenuation lesion mid right kidney, nonspecific. This is unchanged. VASCULATURE: Unremarkable. No aortic aneurysm. BOWEL: There is mechanical small bowel obstruction. The precise point of obstruction is not clearly identified. However, it is likely in the region of the distal jejunum/ proximal ileum. There is mesenteric edema surrounding the dilated loops of bowel in the mid left abdomen. This is a nonspecific finding. Collapsed loops of distal ileum are identified. Surgical anastomosis is seen at the rectosigmoid junction. Diffuse mild mural thickening of the gastric body and antrum, nonspecific. APPENDIX: Not identified. No secondary findings to suggest acute appendicitis PERITONEUM: Unremarkable. No free fluid. No free air. LYMPH NODES: Unremarkable. No enlarged lymph nodes. BLADDER: Nondistended. Nevertheless there is apparent thickening of bladder wall of mild perivesical inflammatory change. Please correlate with clinical and laboratory evaluation to exclude cystitis. REPRODUCTIVE: Unremarkable prostate. BONES: No acute fracture. OTHER FINDINGS: None. IMPRESSION: Mechanical small-bowel obstruction. Precise point of obstruction not definitely identified but likely in the region of the distal jejunum/ proximal ileum. No acute thoracic findings. Mild mediastinal lymphadenopathy, nonspecific and unchanged from prior. Chronic kidney disease with right iliac transplant kidney. Questionable mural thickening and perivesical inflammatory change in the urinary bladder. Please correlate with clinical and laboratory evaluation to exclude cystitis. Nonspecific mural thickening of the gastric body and antrum. Possible gastritis. Preliminary interpretation of this examination was reported by [facility] at 7:27 a.m. on 12/10/2016. There is concurrence of this report with the preliminary interpretation.
--- NOTE | 2016-12-10 09:45 | CP.PCM.PCO ---
Assessment & Plan - Assessment and Plan (Free Text) Assessment: patient is under care of outpatient, Discussed with Dr. Moise, Attending switched to
[2016-12-10] MEDS ORDERED: Dextrose 5%/0.45% NS 1,000 ML IV SCH (10:00)
--- NOTE | 2016-12-10 10:28 | CARD ---
APPROVED REPORT EKG Measurement Heart [id number] <Conclusion> Sinus rhythm with premature atrial complexes Right bundle branch block Lateral infarct, age undetermined T wave abnormality, consider inferior ischemia Abnormal ECG
[2016-12-10] MEDS ORDERED: Chlorhexidine Gluconate 1 APPL/PKT TP ONE (11:37)
--- NOTE | 2016-12-10 14:37 | RAD ---
HISTORY: s/p NGT COMPARISON: No prior. FINDINGS: LUNGS: No active pulmonary disease. PLEURA: No significant pleural effusion identified, no pneumothorax apparent. CARDIOVASCULAR: Normal heart size. Left tunneled central venous dialysis catheter. Right axillary/ subclavian vascular stent. Nasogastric tube identified. The tube can be followed only to the level of the diaphragm and is not seen inferior to the diaphragm. However, this may be artifactual due to underpenetration. OSSEOUS STRUCTURES: No significant abnormalities. VISUALIZED UPPER ABDOMEN: Normal. OTHER FINDINGS: None. IMPRESSION: No acute infiltrate. Nasogastric tube tip can only be visualized to the level of the diaphragm. A this may be artifactual due to underpenetration. No other significant change.
[2016-12-10] MEDS: Metoprolol 1 mg/ml Inj IVP PRN (16:25)
[2016-12-10] MEDS ORDERED: metroNIDAZOLE 500mg/100ml NS 100 ML IVPB SCH (17:00)
[2016-12-10] MEDS: Morphine 4 MG/ML VIAL IVP PRN (20:29)
[2016-12-10] MEDS: Ciprofloxacin 400mg/200ml D5W 400 MG/200 ML BAG IVPB SCH (21:21)
--- NOTE | 2016-12-10 21:57 | CP.PCM.CON ---
History of Present Illness - History of Present Illness History of Present Illness: REASONS FOR CONSULT : ESRD ON HD M W F ANEMIA OF CKD .. H/H GOOD ELECTROLYTES ABNORMALITIES PT IS WELL KNOWN TO ME SINCE THE LAST CENTURY .. WITH MULTIPLE MEDICAL PROBLEMS AND FREQUENT ADMISSIONS I SWA PT YESTERDAY IN MY OFFICE AROUND 20.00 NOON IN REGULAR RENAL F/U VISIT .. HE WAS OK STARTED DEVELOPPING ABDO PAIN AND CONSTIPATION AROUND 3.00 PM YESTERDAY .. CAME TO THE ER WAS ADMITTED FOR INTESTINAL OBS .. I SAW PT TODAY WHILE ON HD .. NGT IN PLACE SUCTIONING AROUND 8OO CC OF BILLOUS MATERIAL .. 51yo M with PMHx of Atrial Fib, Arthritis, ESRD on HD, DM, HTN, here for evaluation of abdominal pain. Patient states that the pain started yesterday at 3PM, located in the left side and middle abdomen. It is described as crampy, waxing and waning, severe abd pain. He states that he ate rice and beans about an hour prior to pain onset. He had a BM at 3PM, Denies any stool caliber changes, no blood, not dark stool. States that the pain has been going on since then, and he has not gotten any relief. Has not passed any flatus or had any BMs since. Denies any F/C. Does c/o belching, and feeling nauseous. Denies any vomiting. No CP/SOB. No headaches. PMHx: HTN, DM, ESRD on HD MWF, A fib, Arthritis PSHx: Cataracts, Renal Transplant x2 at [facility], Right foot TMA, Left arm HeRO placement. Family Hx: Mother - DM, HTN. Social Hx: Denies tobacco, Denies ETOH, Denies illicit drugs. Disabled Past Patient History - Infectious Disease Hx of Infectious Diseases: None - Tetanus Immunizations Tetanus Immunization: Unknown - Past Medical History & Family History Past Medical History?: Yes - Past Social History Smoking Status: Never Smoked - CARDIAC Hx Atrial Fibrillation: Yes Hx Cardia Arrhythmia: Yes Hx Congestive Heart Failure: No Hx Hypercholesterolemia: Yes Hx Hypertension: Yes Hx Peripheral Edema: Yes - PULMONARY Hx Sleep Apnea: Yes - NEUROLOGICAL Hx Neurological Disorder: No Other/Comment: Hx Diabetic neuropathy - HEENT Hx HEENT Problems: No Hx Cataracts: Yes (Bilateral) Hx Epistaxis: Yes - RENAL Hx Chronic Kidney Disease: Yes Hx Kidney Stones: Yes - ENDOCRINE/METABOLIC Hx Hypothyroidism: No - HEMATOLOGICAL/ONCOLOGICAL Hx AIDS: No Hx Anemia: Yes Hx Human Immunodeficiency Virus (HIV): No - INTEGUMENTARY Hx Dermatological Problems: No Hx Cellulitis: Yes Other/Comment: Pt. had all toenails 10 toenails removed at the age of 14 due to pain - MUSCULOSKELETAL/RHEUMATOLOGICAL Hx Arthritis: Yes Hx Falls: Yes Hx Fractures: No Hx Osteoporosis: Yes - GASTROINTESTINAL Hx Gastritis: Yes - GENITOURINARY/GYNECOLOGICAL Hx Genitourinary Disorders: No Hx Prostate Problems: Yes Hx Urinary Tract Infection: Yes Other/Comment: Anuric due to kidney condition, confirmed by mother patient has no kidneys - PSYCHIATRIC Hx Anxiety: Yes Hx Depression: Yes Hx Substance Use: No - SURGICAL HISTORY Hx Appendectomy: Yes - ANESTHESIA Hx Anesthesia: Yes Hx Anesthesia Reactions: Yes (AWAKE DURING THE SURGERY) Hx Malignant Hyperthermia: No Meds Allergies/Adverse Reactions: Allergies Allergy/AdvReac Type Severity Reaction Status Date / Time hydromorphone HCl Allergy WHEEZING Verified 12/31/15 18:30 [From Dilaudid] ketorolac [From Toradol] Allergy RASH Verified 10/16/16 06:32 propoxyphene napsylate Allergy RASH Verified 12/31/15 18:30 [From Darvocet-N] vancomycin AdvReac RASH Verified 12/31/15 18:30 - Medications Medications: Current Medications Famotidine (Pepcid) 20 mg IVP Q12 [facility] Last Admin: 12/10/16 21:35 Dose: 20 mg Sodium Chloride (Sodium Chloride 0.9%) 1,000 mls @ 120 mls/hr IV .Q8H20M [facility] Stop: 12/11/16 09:02 Dextrose/Sodium Chloride (Dextrose 5%/0.45% Ns 1000 Ml) 1,000 mls @ 40 mls/hr IV .Q24H [facility] Stop: 12/11/16 09:57 Last Admin: 12/10/16 11:29 Dose: 40 mls/hr Ciprofloxacin (Cipro 400mg/200ml Dsw) 400 mg in 200 mls @ 200 mls/hr IVPB Q12 [facility] Last Admin: 12/10/16 21:21 Dose: 200 mls/hr Metronidazole (Flagyl 500mg/100ml Ns) 100 mls @ 100 mls/hr IVPB Q8 [facility] Last Admin: 12/10/16 21:05 Dose: 100 mls/hr Lactic Acid (Lac-Hydrin 12% Lotion (225 G)) 1 applic TOP BID [facility] Last Admin: 12/10/16 16:59 Dose: 1 applic Metoprolol Tartrate (Lopressor) 2.5 mg IVP Q6 PRN PRN Reason: npo Last Admin: 12/10/16 16:25 Dose: 2.5 mg Morphine Sulfate (Morphine) 8 mg IVP Q4 PRN PRN Reason: Pain, moderate (4-7) Last Admin: 12/10/16 20:29 Dose: 8 mg Ondansetron HCl (Zofran Inj) 4 mg IVP Q4 PRN PRN Reason: Nausea/Vomiting Last Admin: 12/10/16 20:25 Dose: 4 mg Ondansetron HCl (Zofran Inj) 4 mg IVP Q4 PRN PRN Reason: Nausea/Vomiting Results - Vital Signs Recent Vital Signs: Last Vital Signs Temp 98.7 F 12/10/16 19:19 Pulse 138 H 12/10/16 19:19 Resp 20 12/10/16 19:19 BP 159/100 H 12/10/16 19:19 Pulse Ox 97 12/10/16 19:19 - Labs Result Diagrams: 12/10/16 04:49 12/10/16 04:49 Labs: Laboratory Results - last 24 hr 12/10/16 16:44 Lactic Acid 0.6 L Assessment & Plan - Assessment and Plan (Free Text) Assessment: ESRD ON HD Mary Mae WAS SEEN TODAY ON HD ..WILL GIVE EXTRA HD IN AM MUTIPLE MEDICAL PROBLEMS CAME IN WITH INTESTINAL OBS P : C/O CURRENT CARE C/O NGT SUCTIONING SURGICAL CONSULT HD IN AM WILL F/U CLOSELY - Date & Time Date: 12/10/16 Time: 15:00
[2016-12-11] MEDS: Morphine 4 MG/ML VIAL IVP PRN ×5 (00:36→21:57)
[2016-12-11] MEDS: Metoprolol 1 mg/ml Inj IVP PRN ×2 (01:27→08:55)
[2016-12-11] MEDS: metroNIDAZOLE 500mg/100ml NS 100 ML IVPB SCH ×3 (05:10→20:22)
--- NOTE | 2016-12-11 08:47 | HP ---
HISTORY OF PRESENT ILLNESS: This is a 51-year-old male with history of multiple medical problems including end-stage renal disease on hemodialysis presented with symptoms of abdominal pain, nausea and inability to move his bowel for 1 day duration. The patient was evaluated in the emergency room and he had a CAT scan of the abdomen done that showed small bowel mechanical obstruction. The patient had an assessment consultation done in the emergency room and he was admitted for further management. The patient denied to have any similar symptoms before. The patient had previous abdominal surgery with small bowel resection, etiology is not known from the history. The patient denied having any fever and other review of system is negative. ALLERGIES: THE PATIENT HAS ALLERGIES TO HYDROMORPHONE, KETOROLAC AND VANCOMYCIN. SOCIAL HISTORY: No history of smoking, EtOH or substance abuse. FAMILY HISTORY: Noncontributory. HOME MEDICATIONS: Includes Requip 3 mg at bedtime, verapamil 120 mg daily, Flomax 0.4 mg daily, Paxil 10 mg daily, Uloric 40 mg daily, Nexium 40 mg daily, Plavix 75 mg daily, atorvastatin 20 mg at bedtime, Eliquis 2.5 mg twice a day, Xanax 0.5 mg three times a day, Percocet one tablet every six hours as needed. PAST MEDICAL HISTORY: End-stage renal disease on hemodialysis, hypertension, and paroxysmal atrial fibrillation. PHYSICAL EXAMINATION GENERAL: The patient is awake, conscious, not in any cardiopulmonary distress. VITAL SIGNS: Blood pressure is 190/99, temperature 98.2, respiratory rate 20. HEENT: Pupils equal, reactive to light. Normal appearing mucosa of the conjunctivae, oropharyngeal, and nasal membrane mucosa. NECK: Supple. No JVD. No carotid bruit. No lymph nodes. No thyromegaly. CHEST AND LUNGS: Bilateral symmetrical expansion. Good air exchange. No rales. No rhonchi. CARDIOVASCULAR SYSTEM: PMI not localized. S1 and S2. No additional sounds. ABDOMEN: Normoactive bowel sounds. There is diffuse tenderness, but no rebound tenderness or rigidity. EXTREMITIES: No cyanosis, no clubbing, no edema. 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 No neurological deficit could be appreciated. ASSESSMENT: 1. Small bowel obstruction. 2. End-stage renal disease on hemodialysis. 3. Hypertension. 4. Paroxysmal atrial fibrillation. PLAN: We will follow surgical recommendations. We will give the patient antihypertensive medications intravenously. Nephrology consulted for hemodialysis. We will admit the patient to telemetry. Mildred Warren MD [id number]
[2016-12-11] MEDS: Ciprofloxacin 400mg/200ml D5W 400 MG/200 ML BAG IVPB SCH ×2 (08:53→20:31)
[2016-12-11] MEDS: Benzocaine/Menthol (Cepacol) Lozenge PO PRN ×2 (13:36→17:49)
--- NOTE | 2016-12-11 14:26 | RAD ---
PROCEDURE: Radiographs of the chest and abdomen (obstructive series) HISTORY: SBO COMPARISON: No prior. TECHNIQUE: AP radiograph of the chest, with upright and supine radiographs of the abdomen. FINDINGS: CHEST: Lungs: Clear. Cardiovascular: Normal size heart. No pulmonary vascular congestion. Pleura: No pleural fluid. No pneumothorax. Other findings: Double lumen catheter in place. ABDOMEN AND PELVIS: Bowel: Unremarkable bowel gas pattern. No evidence of mechanical obstruction. Free air: None. Bones: Unremarkable. Other findings: None. IMPRESSION: Unremarkable radiographs of chest and abdomen. No evidence of mechanical bowel obstruction.
[2016-12-11] MEDS ORDERED: Dexamethasone/Tobramycin Ophth Susp OU SCH (16:00)
[2016-12-11] MEDS: Tobramycin 0.3% OPHT SOLN OU SCH (16:55)
[2016-12-11] MEDS: Dextrose 5%/0.45% NS 1,000 ML IV SCH (17:49)
--- NOTE | 2016-12-11 20:14 | CP.PCM.PN ---
<Enriqueta Mata - Last Filed: 12/11/16 20:15> Subjective - Date & Time of Evaluation Date of Evaluation: 12/11/16 Time of Evaluation: 07:00 - Subjective Subjective: GENERAL SURGERY PROGRESS NOTE FOR DR. HUNG Patient seen and examined at [facility]. Per nurse, there was 150cc output from NG tube overnight and 700cc the day before. The patient vomited last night and this AM. He continues to have abdominal pain in his lower abdomen but states that he feels that his abdomen is less swollen today. He passed flatus this afternoon but has not had a BM. Objective - Vital Signs/Intake and Output Vital Signs (last 24 hours): Temp Pulse Resp BP Pulse Ox 99.4 F 99 H 20 126/77 98 12/11/16 19:06 12/11/16 19:06 12/11/16 19:06 12/11/16 19:06 12/11/16 19:06 Intake and Output: 12/11/16 12/12/16 18:59 06:59 Intake Total 460 Output Total 750 Balance -290 - Medications Medications: Current Medications Benzocaine/Menthol (Cepacol Sore Throat) 1 berna PO Q4 PRN PRN Reason: SORETHROAT Last Admin: 12/11/16 17:49 Dose: 1 berna Famotidine (Pepcid) 20 mg IVP Q12 [facility] Last Admin: 12/11/16 08:51 Dose: 20 mg Ciprofloxacin (Cipro 400mg/200ml Dsw) 400 mg in 200 mls @ 200 mls/hr IVPB Q12 [facility] Last Admin: 12/11/16 08:53 Dose: 200 mls/hr Metronidazole (Flagyl 500mg/100ml Ns) 100 mls @ 100 mls/hr IVPB Q8@0500,1300, 2100 [facility] Last Admin: 12/11/16 12:27 Dose: 100 mls/hr Dextrose/Sodium Chloride (Dextrose 5%/0.45% Ns 1000 Ml) 1,000 mls @ 60 mls/hr IV .[id number] [facility] Stop: 12/12/16 16:57 Last Admin: 12/11/16 17:49 Dose: 60 mls/hr Iohexol (Omnipaque 240 (50 Ml)) 50 ml PO ONCE ONE Stop: 12/12/16 07:01 Lactic Acid (Lac-Hydrin 12% Lotion (225 G)) 1 applic TOP BID [facility] Last Admin: 12/11/16 16:55 Dose: 1 applic Metoprolol Tartrate (Lopressor) 2.5 mg IVP Q6 PRN PRN Reason: npo Last Admin: 12/11/16 08:55 Dose: 2.5 mg Morphine Sulfate (Morphine) 8 mg IVP Q4 PRN PRN Reason: Pain, moderate (4-7) Last Admin: 12/11/16 16:56 Dose: 8 mg Ondansetron HCl (Zofran Inj) 4 mg IVP Q4 PRN PRN Reason: Nausea/Vomiting Last Admin: 12/11/16 06:23 Dose: 4 mg Ondansetron HCl (Zofran Inj) 4 mg IVP Q4 PRN PRN Reason: Nausea/Vomiting Tobramycin Sulfate (Tobrex 0.3% Ophth Soln) 1 drop OU Q6 [facility] Last Admin: 12/11/16 16:55 Dose: 1 drop - Constitutional Appears: Non-toxic, No Acute Distress - Head Exam Head Exam: ATRAUMATIC, NORMAL INSPECTION - Eye Exam Eye Exam: EOMI, Normal appearance - Respiratory Exam Respiratory Exam: NORMAL BREATHING PATTERN. absent: Respiratory Distress - Cardiovascular Exam Cardiovascular Exam: +S1, +S2 - GI/Abdominal Exam GI & Abdominal Exam: Soft, Tenderness (mild diffusely tender). absent: Distended, Firm, Guarding, Rigid, Rebound - Neurological Exam Neurological Exam: Alert, Awake, Oriented x3 - Psychiatric Exam Psychiatric exam: Normal Affect, Normal Mood - Skin Skin Exam: Dry, Normal Color, Warm Assessment and Plan - Assessment and Plan (Free Text) Assessment: 51yo M with PMHx of Atrial Fib, Arthritis, ESRD on HD s/p kidney transplant, DM , HTN who has SBO - Obstructive series today: no evidence of mechanical obstruction - Passing flatus but no BM - NPO - Continue NG tube to suction, having high output - Will repeat CT tomorrow at 9:00 AM with PO and IV contrast - Discussed plan with Dr. Anabell Mata PGY-3 <Tirso Hnug - Last Filed: 12/11/16 22:44> Objective - Vital Signs/Intake and Output Vital Signs (last 24 hours): Temp Pulse Resp BP Pulse Ox 99.4 F 99 H 20 126/77 98 12/11/16 19:06 12/11/16 19:06 12/11/16 19:06 12/11/16 19:06 12/11/16 19:06 Intake and Output: 12/11/16 12/12/16 18:59 06:59 Intake Total 460 Output Total 750 Balance -290 - Medications Medications: Current Medications Benzocaine/Menthol (Cepacol Sore Throat) 1 berna PO Q4 PRN PRN Reason: SORETHROAT Last Admin: 12/11/16 17:49 Dose: 1 berna Famotidine (Pepcid) 20 mg IVP Q12 [facility] Last Admin: 12/11/16 20:27 Dose: 20 mg Ciprofloxacin (Cipro 400mg/200ml Dsw) 400 mg in 200 mls @ 200 mls/hr IVPB Q12 [facility] Last Admin: 12/11/16 20:31 Dose: 200 mls/hr Metronidazole (Flagyl 500mg/100ml Ns) 100 mls @ 100 mls/hr IVPB Q8@0500,1300, 2100 [facility] Last Admin: 12/11/16 20:22 Dose: 100 mls/hr Dextrose/Sodium Chloride (Dextrose 5%/0.45% Ns 1000 Ml) 1,000 mls @ 60 mls/hr IV .[id number] [facility] Stop: 12/12/16 16:57 Last Admin: 12/11/16 17:49 Dose: 60 mls/hr Iohexol (Omnipaque 240 (50 Ml)) 50 ml PO ONCE ONE Stop: 12/12/16 07:01 Lactic Acid (Lac-Hydrin 12% Lotion (225 G)) 1 applic TOP BID [facility] Last Admin: 12/11/16 16:55 Dose: 1 applic Metoprolol Tartrate (Lopressor) 2.5 mg IVP Q6 PRN PRN Reason: npo Last Admin: 12/11/16 08:55 Dose: 2.5 mg Morphine Sulfate (Morphine) 8 mg IVP Q4 PRN PRN Reason: Pain, moderate (4-7) Last Admin: 12/11/16 21:57 Dose: 8 mg Ondansetron HCl (Zofran Inj) 4 mg IVP Q4 PRN PRN Reason: Nausea/Vomiting Last Admin: 12/11/16 06:23 Dose: 4 mg Ondansetron HCl (Zofran Inj) 4 mg IVP Q4 PRN PRN Reason: Nausea/Vomiting Tobramycin Sulfate (Tobrex 0.3% Ophth Soln) 1 drop OU Q6 [facility] Last Admin: 12/11/16 16:55 Dose: 1 drop Attending/Attestation - Attestation I have personally seen and examined this patient.: Yes I have fully participated in the care of the patient.: Yes I have reviewed all pertinent clinical information, including history, physical exam and plan: Yes Notes (Text): 12/11/16 22:42 Pt was seen and examined at bedside on 12/11/16 Agree with above note and assessment Pt with SBO with possible Enteritis Repeat CT scan of A/P tomorrow Start [place]. ID Consult Plan d.w pt in detail Risk and benefit explained in detail
--- NOTE | 2016-12-11 21:48 | PN ---
DATE: 12/11/2016 SUBJECTIVE: The patient is seen today, 12/11/2016. He still has some abdominal pain and he has a nasogastric tube, committed to low-intermittent suction. PHYSICAL EXAMINATION GENERAL: Text. VITAL SIGNS: Blood pressure is 126/85, temperature 98.2, respiratory rate 18, and pulse 90. HEENT: Pupils are equal, reactive to light. Normal-appearing mucosa. The conjunctivae, oropharyngeal and nasal membrane mucosa. NECK: Supple. No JVD. No carotid bruit. No lymph node. No thyromegaly. CARDIOVASCULAR SYSTEM: PMI not localized. S1, S2. No additional sounds. CHEST AND LUNGS: Bilateral symmetrical expansion. Good air exchange. No rales, no rhonchi. ABDOMEN: Normoactive bowel sounds. Diffuse tenderness with no rebound tenderness or rigidity. EXTREMITIES: No cyanosis, no clubbing, no edema. amputation. RAILWAY PATROL OFFICER: Alert, awake, and oriented x3. No neurological deficit could be appreciated. LABORATORY DATA: Repeated abdominal x-ray today showed unremarkable radiograph of chest and abdomen. No evidence of mechanical valve obstruction. ASSESSMENT: Small bowel obstruction; end-stage renal disease, on hemodialysis; type 2 diabetes mellitus; hypertension; atrial fibrillation with paroxysmal atrial fibrillation. PLAN: We will follow surgical recommendations and continue hemodialysis as per composing machine operator/tender. Mildred Warren MD MTDFang
--- NOTE | 2016-12-11 23:10 | CP.PCM.PN ---
Subjective - Date & Time of Evaluation Date of Evaluation: 12/11/16 Time of Evaluation: 15:00 - Subjective Subjective: PT WAS SEEN ON RENAL F/U PT WAS SEEN ALONG WITH SURGEON AND CASE D/W HIM AT LENGTH ALTHOUGH ABDO PAIN IS LITTLE BETTER BUT STILL WITH SIGNIFICANT TENDERNESS AND REBOUND TENDERNESS DID PASS LITTLE FLATUS TODAY BUT NOT BM HD TO START SHORTLY .. HD ORDERS GIVEN AND D/W HD-RN STILL ON NGT SUCTION Objective - Vital Signs/Intake and Output Vital Signs (last 24 hours): Temp Pulse Resp BP Pulse Ox 99.4 F 99 H 20 126/77 98 12/11/16 19:06 12/11/16 19:06 12/11/16 19:06 12/11/16 19:06 12/11/16 19:06 Intake and Output: 12/11/16 12/12/16 18:59 06:59 Intake Total 460 Output Total 750 Balance -290 - Medications Medications: Current Medications Benzocaine/Menthol (Cepacol Sore Throat) 1 berna PO Q4 PRN PRN Reason: SORETHROAT Last Admin: 12/11/16 17:49 Dose: 1 berna Famotidine (Pepcid) 20 mg IVP Q12 [facility] Last Admin: 12/11/16 20:27 Dose: 20 mg Ciprofloxacin (Cipro 400mg/200ml Dsw) 400 mg in 200 mls @ 200 mls/hr IVPB Q12 [facility] Last Admin: 12/11/16 20:31 Dose: 200 mls/hr Metronidazole (Flagyl 500mg/100ml Ns) 100 mls @ 100 mls/hr IVPB Q8@0500,1300, 2100 [facility] Last Admin: 12/11/16 20:22 Dose: 100 mls/hr Dextrose/Sodium Chloride (Dextrose 5%/0.45% Ns 1000 Ml) 1,000 mls @ 60 mls/hr IV .[id number] [facility] Stop: 12/12/16 16:57 Last Admin: 12/11/16 17:49 Dose: 60 mls/hr Iohexol (Omnipaque 240 (50 Ml)) 50 ml PO ONCE ONE Stop: 12/12/16 07:01 Lactic Acid (Lac-Hydrin 12% Lotion (225 G)) 1 applic TOP BID [facility] Last Admin: 12/11/16 16:55 Dose: 1 applic Metoprolol Tartrate (Lopressor) 2.5 mg IVP Q6 PRN PRN Reason: npo Last Admin: 12/11/16 08:55 Dose: 2.5 mg Morphine Sulfate (Morphine) 8 mg IVP Q4 PRN PRN Reason: Pain, moderate (4-7) Last Admin: 12/11/16 21:57 Dose: 8 mg Ondansetron HCl (Zofran Inj) 4 mg IVP Q4 PRN PRN Reason: Nausea/Vomiting Last Admin: 12/11/16 06:23 Dose: 4 mg Ondansetron HCl (Zofran Inj) 4 mg IVP Q4 PRN PRN Reason: Nausea/Vomiting Tobramycin Sulfate (Tobrex 0.3% [facility]) 1 drop OU Q6 [facility] Last Admin: 12/11/16 16:55 Dose: 1 drop Assessment and Plan - Assessment and Plan (Free Text) Assessment: ESRD ON HD M W F .. EXTRA HD TODAY X 2 H WITH NO FLUID REMOVAL ANEMIA OF CKD .. H/H STABLE MULTIPLE CO MORBIDITIES CAME IN WITH SBO P : C/O CURRENT CARE C/O NGT SUCTION PT IS GETTING DEHYDRATED .. START D5 1/2 NS AT 50 CC/H C/O TO MONITOR VERY CLOSELY
[2016-12-12] MEDS: Tobramycin 0.3% OPHT SOLN OU SCH ×5 (01:10→21:54)
[2016-12-12] MEDS: metroNIDAZOLE 500mg/100ml NS 100 ML IVPB SCH ×3 (04:42→21:52)
[2016-12-12] MEDS: Morphine 4 MG/ML VIAL IVP PRN ×4 (06:38→23:40)
[2016-12-12] MEDS ORDERED: Iohexol 240 (50 ml) PO ONE (07:00)
[2016-12-12] MEDS: Ciprofloxacin 400mg/200ml D5W 400 MG/200 ML BAG IVPB SCH ×2 (09:13→22:26)
[2016-12-12] MEDS: Dextrose 5%/0.45% NS 1,000 ML IV SCH (11:03)
[2016-12-12] MEDS: Metoprolol 1 mg/ml Inj IVP PRN (12:55)
--- NOTE | 2016-12-12 13:08 | CP.PCM.PN ---
<Enriqueta Mata - Last Filed: 12/12/16 13:11> Subjective - Date & Time of Evaluation Date of Evaluation: 12/12/16 Time of Evaluation: 08:00 - Subjective Subjective: GENERAL SURGERY PROGRESS NOTE FOR DR. HUNG Patient seen and examined at beside. Per nurse, there was 1000cc output from NG tube overnight. He states that he is passing flatus but has not had a BM. He reports that his abdominal pain is better but he had some pain after the contrast. He denies nausea or vomiting. Patient states he was unable to drink all of the contrast because he felt too full. Objective - Vital Signs/Intake and Output Vital Signs (last 24 hours): Temp Pulse Resp BP Pulse Ox 98.8 F 135 H 18 146/89 97 12/12/16 12:00 12/12/16 12:55 12/12/16 12:00 12/12/16 12:55 12/12/16 12:00 Intake and Output: 12/12/16 12/12/16 06:59 18:59 Intake Total 1170 Output Total 1000 Balance 170 - Medications Medications: Current Medications Benzocaine/Menthol (Cepacol Sore Throat) 1 berna PO Q4 PRN PRN Reason: SORETHROAT Last Admin: 12/11/16 17:49 Dose: 1 berna Famotidine (Pepcid) 20 mg IVP Q12 [facility] Last Admin: 12/12/16 11:23 Dose: 20 mg Ciprofloxacin (Cipro 400mg/200ml Dsw) 400 mg in 200 mls @ 200 mls/hr IVPB Q12 [facility] Last Admin: 12/12/16 09:13 Dose: 200 mls/hr Metronidazole (Flagyl 500mg/100ml Ns) 100 mls @ 100 mls/hr IVPB Q8@0500,1300, 2100 [facility] Last Admin: 12/12/16 04:42 Dose: 100 mls/hr Dextrose/Sodium Chloride (Dextrose 5%/0.45% Ns 1000 Ml) 1,000 mls @ 60 mls/hr IV .[id number] [facility] Stop: 12/12/16 16:57 Last Admin: 12/12/16 11:03 Dose: Not Given Lactic Acid (Lac-Hydrin 12% Lotion (225 G)) 1 applic TOP BID [facility] Last Admin: 12/12/16 11:32 Dose: 1 applic Metoprolol Tartrate (Lopressor) 2.5 mg IVP Q6 PRN PRN Reason: npo Last Admin: 12/12/16 12:55 Dose: 2.5 mg Morphine Sulfate (Morphine) 8 mg IVP Q4 PRN PRN Reason: Pain, moderate (4-7) Last Admin: 12/12/16 11:22 Dose: 8 mg Ondansetron HCl (Zofran Inj) 4 mg IVP Q4 PRN PRN Reason: Nausea/Vomiting Last Admin: 12/12/16 06:48 Dose: 4 mg Ondansetron HCl (Zofran Inj) 4 mg IVP Q4 PRN PRN Reason: Nausea/Vomiting Tobramycin Sulfate (Tobrex 0.3% Ophth Soln) 1 drop OU Q6 [facility] Last Admin: 12/12/16 09:13 Dose: 1 drop - Constitutional Appears: Non-toxic, No Acute Distress - Head Exam Head Exam: ATRAUMATIC, NORMAL INSPECTION - Eye Exam Eye Exam: EOMI, Normal appearance - Respiratory Exam Respiratory Exam: NORMAL BREATHING PATTERN. absent: Respiratory Distress - Cardiovascular Exam Cardiovascular Exam: +S1, +S2 - GI/Abdominal Exam GI & Abdominal Exam: Soft. absent: Distended, Firm, Guarding, Rigid, Tenderness , Rebound - Neurological Exam Neurological Exam: Alert, Awake, Oriented x3 - Psychiatric Exam Psychiatric exam: Normal Affect, Normal Mood - Skin Skin Exam: Dry, Normal Color, Warm Assessment and Plan - Assessment and Plan (Free Text) Assessment: 51yo M with PMHx of Atrial Fib, Arthritis, ESRD on HD s/p kidney transplant, DM , HTN who has SBO - Awaiting CT Abd/Pelvis, not done yet due to tachycardia - Passing flatus but no BM - NPO - Continue NG tube to suction, continues to have high output - Discussed plan with Dr. Anabell Mata PGY-3 <Tirso Hung - Last Filed: 12/14/16 20:05> Objective - Vital Signs/Intake and Output Vital Signs (last 24 hours): Temp Pulse Resp BP Pulse Ox 98.4 F 85 20 158/91 H 97 12/14/16 12:20 12/14/16 13:46 12/14/16 12:20 12/14/16 13:46 12/14/16 12:20 - Labs Labs: 12/13/16 04:44 12/13/16 04:44 PT 13.8 Seconds (9.8-13.1) H 12/12/16 18:30 INR 1.2 (0.9-1.2) 12/12/16 18:30 APTT 35.0 Seconds (25.6-37.1) 12/12/16 18:30 Attending/Attestation - Attestation I have personally seen and examined this patient.: Yes I have fully participated in the care of the patient.: Yes I have reviewed all pertinent clinical information, including history, physical exam and plan: Yes Notes (Text): 12/14/16 20:05 Pt was seen and examined at bedside on 12/12/16 Agree with above note and assessment Pt with SBO with possible Enteritis or adhesions Labs reviewed NG to LIS NPO, IVF IV antibiotcis Plan d.w pt in detail. Risk and benefit explained in detail.
--- NOTE | 2016-12-12 14:22 | CP.PCM.CON ---
History of Present Illness - History of Present Illness History of Present Illness: 51yo M with PMHx of Atrial Fib, Arthritis, ESRD on HD, DM, HTN, here for evaluation of abdominal pain. Patient states that the pain started 1 day [employer] located in the left side and middle abdomen. It is described as crampy, waxing and waning, severe abd pain. He states that he ate rice and beans about an hour prior to pain onset. He had a BM at 3PM, Denies any stool caliber changes, no blood, not dark stool. States that the pain has been going on since then, and he has not gotten any relief. Has not passed any flatus or had any BMs since. Denies any F/C. Does c/o belching, and feeling nauseous. Denies any vomiting. No CP/SOB. No headaches. Has NGT in place still with rebound tenderness diffusely Surgery on board PMHx: HTN, DM, ESRD on HD MWF, A fib, Arthritis PSHx: Cataracts, Renal Transplant x2 at [facility], Right foot TMA, Left arm HeRO placement. Family Hx: Mother - DM, HTN. Social Hx: Denies tobacco, Denies ETOH, Denies illicit drugs. Disabled Review of Systems - Constitutional Constitutional: As Per HPI, Anorexia, Fever, Malaise - EENT Eyes: absent: As Per HPI, Blind Spots, Blurred Vision, Change in Vision, Decreased Night Vision, Diplopia, Discharge, Dry Eye, Exophthalmos, Floaters, Irritation, Itchy Eyes, Loss of Peripheral Vision, Pain, Photophobia, Requires Corrective Lenses, Sees Flashes, Spots in Vision, Tunnel Vision, Other Visual Disturbances, Loss of Vision, Other Ears: absent: As Per HPI, Decreased Hearing, Ear Discharge, Ear Pain, Tinnitus, Abnormal Hearing, Disequilibrium, Dizziness, Other Nose/Mouth/Throat: absent: As Per HPI, Epistaxis, Nasal Congestion, Nasal Discharge, Nasal Obstruction, Nasal Trauma, Nose Pain, Post Nasal Drip, Sinus Pain, Sinus Pressure, Bleeding Gums, Change in Voice, Dental Pain, Dry Mouth, Dysphagia, Halitosis, Hoarsness, Lip Swelling, Mouth Lesions, Mouth Pain, Odynophagia, Sore Throat, Throat Swelling, Tongue Swelling, Facial Pain, Neck Pain, Neck Mass, Other - Cardiovascular Cardiovascular: absent: As Per HPI, Acrocyanosis, Chest Pain, Chest Pain at Rest , Chest Pain with Activity, Claudication, Diaphoresis, Dyspnea, Dyspnea on Exertion, Edema, Irregular Heart Rhythm, Pain Radiating to Arm/Neck/Jaw, Leg Edema, Leg Ulcers, Lightheadedness, Orthopnea, Palpitations, Paroxysmal Nocturnal Dyspnea, Pedal Edema, Radiating Pain, Rapid Heart Rate, Slow Heart Rate, Syncope, Other - Respiratory Respiratory: absent: As Per HPI, Cough, Dyspnea, Hemoptysis, Dyspnea on Exertion , Wheezing, Snoring, Stridor, Pain on Inspiration, Chest Congestion, Excessive Mucous Production, Change in Mucous Color, Pain with Coughing, Other - Gastrointestinal Gastrointestinal: As Per HPI, Abdominal Pain - Genitourinary Genitourinary: absent: As Per HPI, Change in Urinary Stream, Difficulty Urinating, Dysuria, Flank Pain, Hematuria, Pyuria, Nocturia, Urinary Incontinence, Urinary Frequency, Urinary Hesitance, Urinary Urgency, Voiding Freq/Small Amts, Freq UTI, Hx Renal/Bladder Calculi, Hx /Renal Surgery, Bladder Distension, Other - Musculoskeletal Musculoskeletal: absent: As Per HPI, Abnormal Gait, Arthralgias, Atrophy, Back Pain, Deformity, Joint Swelling, Limited Range of Motion, Loss of Height, Muscle Cramps, Muscle Weakness, Myalgias, Neck Pain, Numbness, Radiating Pain into Limb, Stiffness, Tingling, Other - Integumentary Integumentary: absent: As Per HPI, Acne, Alopecia, Bleeding Lesions, Change in Hair, Change in Nails, Change in Pigmentation, Changing Lesions, Dry Skin, Erythema, Furuncle, Hirsutism, Lesions, New Lesions, Non-Healing Lesions, Photosensitivity, Pruritus, Rash, Skin Pain, Skin Ulcer, Sores, Striae, Swelling , Unusual Bruising, Wounds, Jaundice, Other - Neurological Neurological: absent: As Per HPI, Abnormal Gait, Abnormal Hearing, Abnormal Movements, Abnormal Speech, Behavioral Changes, Burning Sensations, Confusion, Convulsions, Disequilibrium, Dizziness, Numbness, Focal Weakness, Frequent Falls , Headaches, Lack of Coordination, Loss of Vision, Memory Loss, Paresthesias, Radicular Pain, Restless Legs, Sensory Deficit, Syncope, Tingling, Tremor, Vertigo, Weakness, Other Visual Disturbances, Other - Psychiatric Psychiatric: absent: As Per HPI, Abnormal Sleep Pattern, Anhedonia, Anxiety, Auditory Hallucinations, Behavioral Changes, Change in Appetite, Change in Libido, Confusion, Depression, Difficulty Concentrating, Hallucinations, Homicidal Ideation, Hopelessness, Irritability, Memory Loss, Mood Swings, Panic Attacks, Paranoia, Suicidal Ideation, Visual Hallucinations, Tactile Hallucinations, Other - Endocrine Endocrine: As Per HPI Past Patient History - Infectious Disease Hx of Infectious Diseases: None - Tetanus Immunizations Tetanus Immunization: Unknown - Past Medical History & Family History Past Medical History?: Yes - Past Social History Smoking Status: Never Smoked - CARDIAC Hx Atrial Fibrillation: Yes Hx Cardia Arrhythmia: Yes Hx Congestive Heart Failure: No Hx Hypercholesterolemia: Yes Hx Hypertension: Yes Hx Peripheral Edema: Yes - PULMONARY Hx Sleep Apnea: Yes - NEUROLOGICAL Hx Neurological Disorder: No Other/Comment: Hx Diabetic neuropathy - HEENT Hx HEENT Problems: No Hx Cataracts: Yes (Bilateral) Hx Epistaxis: Yes - RENAL Hx Chronic Kidney Disease: Yes Hx Kidney Stones: Yes - ENDOCRINE/METABOLIC Hx Hypothyroidism: No - HEMATOLOGICAL/ONCOLOGICAL Hx AIDS: No Hx Anemia: Yes Hx Human Immunodeficiency Virus (HIV): No - INTEGUMENTARY Hx Dermatological Problems: No Hx Cellulitis: Yes Other/Comment: Pt. had all toenails 10 toenails removed at the age of 14 due to pain - MUSCULOSKELETAL/RHEUMATOLOGICAL Hx Arthritis: Yes Hx Falls: Yes Hx Fractures: No Hx Osteoporosis: Yes - GASTROINTESTINAL Hx Gastritis: Yes - GENITOURINARY/GYNECOLOGICAL Hx Genitourinary Disorders: No Hx Prostate Problems: Yes Hx Urinary Tract Infection: Yes Other/Comment: Anuric due to kidney condition, confirmed by mother patient has no kidneys - PSYCHIATRIC Hx Anxiety: Yes Hx Depression: Yes Hx Substance Use: No - SURGICAL HISTORY Hx Appendectomy: Yes - ANESTHESIA Hx Anesthesia: Yes Hx Anesthesia Reactions: Yes (AWAKE DURING THE SURGERY) Hx Malignant Hyperthermia: No Meds Allergies/Adverse Reactions: Allergies Allergy/AdvReac Type Severity Reaction Status Date / Time hydromorphone HCl Allergy WHEEZING Verified 12/31/15 18:30 [From Dilaudid] ketorolac [From Toradol] Allergy RASH Verified 10/16/16 06:32 propoxyphene napsylate Allergy RASH Verified 12/31/15 18:30 [From Darvocet-N] vancomycin AdvReac RASH Verified 12/31/15 18:30 - Medications Medications: Current Medications Benzocaine/Menthol (Cepacol Sore Throat) 1 berna PO Q4 PRN PRN Reason: SORETHROAT Last Admin: 12/11/16 17:49 Dose: 1 berna Famotidine (Pepcid) 20 mg IVP Q12 [facility] Last Admin: 12/12/16 11:23 Dose: 20 mg Ciprofloxacin (Cipro 400mg/200ml Dsw) 400 mg in 200 mls @ 200 mls/hr IVPB Q12 [facility] Last Admin: 12/12/16 09:13 Dose: 200 mls/hr Metronidazole (Flagyl 500mg/100ml Ns) 100 mls @ 100 mls/hr IVPB Q8@0500,1300, 2100 [facility] Last Admin: 12/12/16 04:42 Dose: 100 mls/hr Dextrose/Sodium Chloride (Dextrose 5%/0.45% Ns 1000 Ml) 1,000 mls @ 60 mls/hr IV .[id number] [facility] Stop: 12/12/16 16:57 Last Admin: 12/12/16 11:03 Dose: Not Given Lactic Acid (Lac-Hydrin 12% Lotion (225 G)) 1 applic TOP BID [facility] Last Admin: 12/12/16 11:32 Dose: 1 applic Metoprolol Tartrate (Lopressor) 2.5 mg IVP Q6 PRN PRN Reason: npo Last Admin: 12/12/16 12:55 Dose: 2.5 mg Morphine Sulfate (Morphine) 8 mg IVP Q4 PRN PRN Reason: Pain, moderate (4-7) Last Admin: 12/12/16 11:22 Dose: 8 mg Ondansetron HCl (Zofran Inj) 4 mg IVP Q4 PRN PRN Reason: Nausea/Vomiting Last Admin: 12/12/16 06:48 Dose: 4 mg Ondansetron HCl (Zofran Inj) 4 mg IVP Q4 PRN PRN Reason: Nausea/Vomiting Tobramycin Sulfate (Tobrex 0.3% Ophth Soln) 1 drop OU Q6 [facility] Last Admin: 12/12/16 09:13 Dose: 1 drop Physical Exam - Constitutional Appears: Non-toxic, Chronically Ill - Head Exam Head Exam: NORMOCEPHALIC - Eye Exam Eye Exam: PERRL. absent: Scleral icterus - ENT Exam ENT Exam: Mucous Membranes Dry, Normal External Ear Exam - Neck Exam Neck exam: Negative for: Lymphadenopathy - Respiratory Exam Respiratory Exam: Decreased Breath Sounds, Clear to Auscultation Bilateral - Cardiovascular Exam Cardiovascular Exam: REGULAR RHYTHM, +S1, +S2 - GI/Abdominal Exam GI & Abdominal Exam: Diminished Bowel Sounds, Distended, Rebound, Soft, Tenderness. absent: Rigid - Rectal Exam Rectal Exam: Deferred - Exam Exam: NORMAL INSPECTION - Extremities Exam Extremities exam: Negative for: calf tenderness, pedal edema Additional comments: right tma+ - Back Exam Back exam: absent: CVA tenderness (L), CVA tenderness (R) - Neurological Exam Neurological exam: Alert, CN II-XII Intact, Oriented x3, Reflexes Normal - Psychiatric Exam Psychiatric exam: Normal Mood - Skin Skin Exam: Dry Results - Vital Signs Recent Vital Signs: Last Vital Signs Temp 98.8 F 12/12/16 12:00 Pulse 135 H 12/12/16 12:55 Resp 18 12/12/16 12:00 BP 146/89 12/12/16 12:55 Pulse Ox 97 12/12/16 12:00 - Labs Result Diagrams: 12/10/16 04:49 12/10/16 04:49 Assessment & Plan (1) Abdominal pain Status: Acute (2) Small bowel obstruction Status: Acute - Assessment and Plan (Free Text) Assessment: 51 yo male with hx of CKD on HD presents with diffuse abd pain and SBO r/o adhesions, r/o diverticulitis, r/o occult malignanncy will cont iv antibiotics check cultures blood, stool surgical and GI folllow up
[2016-12-12] MEDS ORDERED: Iohexol 300 100 ML IJ ONE (16:26)
[2016-12-12] MEDS ORDERED: Sodium Chloride 0.9% 50 ML IV ONE (16:26)
[2016-12-12] MEDS: Benzocaine/Menthol (Cepacol) Lozenge PO PRN (18:48)
[2016-12-12 18:52] LABS: BASO % 0.5 % (0.0-2.0); EOS # 0.2 K/uL (0.0-0.7); EOS % 2.4 % (0.0-4.0); HEMATOCRIT 40.2 % (35.0-51.0); LYMPH # 0.9 K/uL (1.0-4.3); LYMPH % 11.4 % (20.0-40.0); MEAN CELL VOLUME 83.2 fl (80.0-94.0); MEAN CORPUSCULAR HEMOGLOBIN 26.7 pg (27.0-31.0); MEAN CORPUSCULAR HGB CONC 32.1 g/dL (33.0-37.0); MEAN PLATELET VOLUME 7.7 fl (7.2-11.7); MONO # 1.5 K/uL (0.0-0.8); MONO % 19.1 % (0.0-10.0); NEUT # 5.3 K/uL (1.8-7.0); NEUT % 66.6 % (50.0-75.0); NRBC % 0.1 % (0.0-0.0); WHITE BLOOD COUNT 7.9 K/uL (4.8-10.8)
[2016-12-12 19:01] LABS: ALB/GLOB RATIO 1.2 (1.0-2.1); BILIRUBIN,TOTAL 1.2 mg/dl (0.2-1.3); CALCIUM 7.7 mg/dL (8.4-10.2); POTASSIUM 4.8 MMOL/L (3.6-5.0); TOTAL PROTEIN 7.4 G/DL (6.3-8.2)
--- NOTE | 2016-12-12 20:09 | PN ---
DATE: 12/12/2016 SUBJECTIVE: The patient is seen today on 12/12/2016. He is not in any cardiopulmonary distress. The patient still has abdominal pain and nasogastric tube. Did not move bowel yet. PHYSICAL EXAMINATION: VITAL SIGNS: Blood pressure 146/89, temperature 98.8, respiratory rate 18, and pulse 130. HEENT: Pupils are equal, reactive to light. Normal-appearing mucosa of the conjunctivae, oropharyngeal and nasal membrane mucosa. NECK: Supple. No JVD. No carotid bruits. No lymph node. No thyromegaly. CHEST AND LUNGS: Bilateral symmetrical expansion. Good air exchange. No rales, no rhonchi. CARDIOVASCULAR SYSTEM: PMI not localized. S1, S2. No additional sounds. ABDOMEN: Normoactive bowel sounds. No tenderness. No organomegaly. No masses. EXTREMITIES: No cyanosis, no clubbing, no edema. [employer]: Alert, awake, and oriented x2. No neurological deficit could be appreciated. ASSESSMENT: Intestinal obstruction, end-stage renal disease on hemodialysis, hypertension, type 2 diabetes mellitus. PLAN: Plan for the patient is for repeat CAT scan of the abdomen today and we will follow recommendations of surgery. The patient also had an ID consult as per surgery recommendations, and the patient was started on IV antibiotics, meropenem. Mildred Warren MD
[2016-12-13] MEDS: Metoprolol 1 mg/ml Inj IVP PRN (03:24)
[2016-12-13] MEDS: Tobramycin 0.3% OPHT SOLN OU SCH ×4 (03:33→22:03)
[2016-12-13] MEDS: Morphine 4 MG/ML VIAL IVP PRN ×3 (03:47→23:09)
[2016-12-13] MEDS ORDERED: Metoprolol 1 mg/ml Inj IVP STA (04:08)
[2016-12-13] MEDS ORDERED: DiphenhydrAMINE 50 mg/ml Inj IVP STA (04:34)
[2016-12-13 05:00] LABS: ALB/GLOB RATIO 1.1 (1.0-2.1); BILIRUBIN,TOTAL 1.5 mg/dl (0.2-1.3); CALCIUM 8.6 mg/dL (8.4-10.2); TOTAL PROTEIN 8.5 G/DL (6.3-8.2)
[2016-12-13] MEDS: metroNIDAZOLE 500mg/100ml NS 100 ML IVPB SCH ×3 (05:00→21:56)
[2016-12-13 05:06] LABS: BASO % 0.5 % (0.0-2.0); EOS # 0.2 K/uL (0.0-0.7); EOS % 2.2 % (0.0-4.0); HEMATOCRIT 45.6 % (35.0-51.0); LYMPH # 1.4 K/uL (1.0-4.3); MEAN CORPUSCULAR HEMOGLOBIN 26.9 pg (27.0-31.0); MEAN PLATELET VOLUME 8.1 fl (7.2-11.7); MONO # 1.8 K/uL (0.0-0.8); MONO % 20.1 % (0.0-10.0); NEUT # 5.5 K/uL (1.8-7.0); NEUT % 61.2 % (50.0-75.0); NRBC % 0.1 % (0.0-0.0); PLATELET COUNT 217 K/uL (130-400); RED CELL DISTRIBUTION WIDTH 16.7 % (11.5-14.5); WHITE BLOOD COUNT 8.9 K/uL (4.8-10.8)
--- NOTE | 2016-12-13 05:13 | PCM.RRTMUL ---
<Alison Herr - Last Filed: 12/13/16 05:14> BAG SHAKER Nurse Assessment - Situation BAG SHAKER Called By: RN - Vital Signs Blood Pressure:: 130/92 Pulse Rate:: 160 - Riaz Coma Scale Coma Scale Eye Opening:: Spontaneous Coma Scale Motor:: Obeys Commands Movement Coma Scale Verbal:: Oriented Coma Scale Total:: 15 I.Reason for BAG SHAKER - A) Acute Change in Patient: Subjective: BAG SHAKER called at: 3:59 am BAG SHAKER arrival time: 4:03 Initial BAG SHAKER vitals: BP:107/72 HR: 166 S:51 YO M who has end stage renal disease was admitted for abdominal pain was seen in bed with a NG tube, which was making him uncomfortable. The nurse states that at 3:24 am the patient was noted to have a HR in the 150's at that time she gave him Lopressor 2.5 mg and his hear rate dropped from 150-> 140. He was complaining of abdominal pain and was given morphine 8 mg , soon afterwords his heart rate went into the 170's and a BAG SHAKER was called. - On arrival the patient was fully awake and alert just complaining of having is NG tube in. He complains of abdominal pain, but denies any chest pain, palpitation, dizziness, nausea, or vomiting. O: General: Appears uncomfortable HEENT: NCAT, NG tube is seen in place Cardio: S1s2 heard, tachycardia Resp: CTAB no w/r/r Abd: Soft, mild diffuse tenderness Neuro: Awake, Alert oriented, Skin: has some itching over his right arm, but no redness swelling or erythema Repeat Vitals: 102/59 HR:118, O2 Sat: 96% BAG SHAKER intervention: 1) Lopressor 5mg: brought HR down to 149 2) Cardizam 10 mg: Brought HR down to the 120's 3) EKG: A fib w/ RVR 4) CBC, CMP ordered 5) Benedryl 25mg IVP for skin irritation End Vitals: Repeat Vitals: 102/59 HR:118, O2 Sat: 96%. PT seems to be doing well. A/P 51 YO M who has end stage renal disease was admitted for abdominal pain had a BAG SHAKER called when he was noted to have a HR in the 170's. 1) F/U w/ CBC and CMP. 2) Continue tememetry. 3) Continue with current medical management. BAG SHAKER steam conditioner operator: Dr. Gurpreet Elder <Gurpreet Elder - Last Filed: 12/13/16 13:51> Attending/Attestation - Attestation I have personally seen and examined this patient.: No I have fully participated in the care of the patient.: No I have reviewed all pertinent clinical information, including history, physical exam and plan: No Notes (Text): 12/13/16 13:42 Patient seen and examined shoulder to shoulder with Dr Herr. I agree with his assessment and plan which represent my direct input. The patient was tachycardic with a Heart Rate of 150s-170s. EKG showed Atrial Fibrillation with rapid Response. #. A Fib with rapid response - Metoprolol 5mg given IV with the HR decreasing to the 140s, then increasing back to the 160s. Cardizem 10mg IV bolus was then given which gradually decreased the HR to between 100 and 120/min- blood work was drawn for Electrolytes, renal labs and complete blood count. - Critical Care time 30mins Gurpreet Elder MD
[2016-12-13 07:24] LABS: EOSINOPHIL 1 % (0-7); NEUTROPHIL 75 % (42-75); TOTAL CELLS COUNTED 100
--- NOTE | 2016-12-13 07:46 | CP.PCM.PN ---
<Clement Najera - Last Filed: 12/13/16 15:39> Subjective - Date & Time of Evaluation Date of Evaluation: 12/13/16 Time of Evaluation: 07:46 - Subjective Subjective: Surgery Progress note. Dr. Hung. Patient seen and examined at bedside. [employer] called last night due to tachycardia. Patient states that abd pain is slightly improved. Has had a BM as per nursing staff. NG tube placed and on suction. No CP/SOB. No new complaints. Objective - Vital Signs/Intake and Output Vital Signs (last 24 hours): Temp Pulse Resp BP Pulse Ox 99 F 160 H 18 130/92 H 95 12/13/16 04:59 12/13/16 05:14 12/13/16 04:59 12/13/16 05:14 12/13/16 04:59 Intake and Output: 12/13/16 12/13/16 06:59 18:59 Intake Total 400 Output Total 100 Balance 300 - Medications Medications: Current Medications Benzocaine/Menthol (Cepacol Sore Throat) 1 berna PO Q4 PRN PRN Reason: SORETHROAT Last Admin: 12/12/16 18:48 Dose: 1 berna Famotidine (Pepcid) 20 mg IVP Q12 [facility] Last Admin: 12/12/16 21:58 Dose: 20 mg Ciprofloxacin (Cipro 400mg/200ml Dsw) 400 mg in 200 mls @ 200 mls/hr IVPB Q12 [facility] Last Admin: 12/12/16 22:26 Dose: 200 mls/hr Metronidazole (Flagyl 500mg/100ml Ns) 100 mls @ 100 mls/hr IVPB Q8@0500,1300, 2100 [facility] Last Admin: 12/13/16 05:00 Dose: 100 mls/hr Sodium Chloride (Sodium Chloride 0.9%) 1,000 mls @ 75 mls/hr IV .[id number] [facility] Stop: 12/14/16 07:29 Lactic Acid (Lac-Hydrin 12% Lotion (225 G)) 1 applic TOP BID [facility] Last Admin: 12/12/16 17:44 Dose: 1 applic Metoprolol Tartrate (Lopressor) 2.5 mg IVP Q6 PRN PRN Reason: npo Last Admin: 12/13/16 03:24 Dose: 2.5 mg Morphine Sulfate (Morphine) 8 mg IVP Q4 PRN PRN Reason: Pain, moderate (4-7) Last Admin: 12/13/16 03:47 Dose: 8 mg Ondansetron HCl (Zofran Inj) 4 mg IVP Q4 PRN PRN Reason: Nausea/Vomiting Last Admin: 12/12/16 22:28 Dose: 4 mg Ondansetron HCl (Zofran Inj) 4 mg IVP Q4 PRN PRN Reason: Nausea/Vomiting Tobramycin Sulfate (Tobrex 0.3% Ophth Soln) 1 drop OU Q6 [facility] Last Admin: 12/13/16 03:33 Dose: 1 drop Verapamil HCl (Calan Tab) 40 mg PO TID [facility] Last Admin: 12/12/16 17:43 Dose: Not Given - Labs Labs: 12/13/16 04:44 12/13/16 04:44 PT 13.8 Seconds (9.8-13.1) H 12/12/16 18:30 INR 1.2 (0.9-1.2) 12/12/16 18:30 APTT 35.0 Seconds (25.6-37.1) 12/12/16 18:30 - Constitutional Appears: Well, No Acute Distress - Head Exam Head Exam: ATRAUMATIC, NORMAL INSPECTION, NORMOCEPHALIC - Eye Exam Eye Exam: EOMI, Normal appearance - ENT Exam ENT Exam: Mucous Membranes Moist - Respiratory Exam Respiratory Exam: NORMAL BREATHING PATTERN - GI/Abdominal Exam GI & Abdominal Exam: Soft. absent: Distended, Guarding, Rigid, Rebound Additional comments: Tender to palpation lower abd - Extremities Exam Extremities Exam: Normal Inspection. absent: Calf Tenderness - Neurological Exam Neurological Exam: Alert, Awake, Oriented x3 - Psychiatric Exam Psychiatric exam: Normal Affect, Normal Mood Assessment and Plan - Assessment and Plan (Free Text) Assessment: 51yo M with PMHx of Atrial Fib, Arthritis, ESRD on HD s/p kidney transplant, DM , HTN who has SBO - Repeat CT: resolving SBO - Nursing staff reports BM last night - Continue NPO - NGT to suction - continue Abx as per ID - cont to monitor bowel fxn Further recs as per Dr. Anabell Najera PGY1 <Tirso Hung - Last Filed: 12/14/16 20:16> Objective - Vital Signs/Intake and Output Vital Signs (last 24 hours): Temp Pulse Resp BP Pulse Ox 98.4 F 85 20 158/91 H 97 12/14/16 12:20 12/14/16 13:46 12/14/16 12:20 12/14/16 13:46 12/14/16 12:20 - Labs Labs: 12/13/16 04:44 12/13/16 04:44 PT 13.8 Seconds (9.8-13.1) H 12/12/16 18:30 INR 1.2 (0.9-1.2) 12/12/16 18:30 APTT 35.0 Seconds (25.6-37.1) 12/12/16 18:30 Attending/Attestation - Attestation I have personally seen and examined this patient.: Yes I have fully participated in the care of the patient.: Yes I have reviewed all pertinent clinical information, including history, physical exam and plan: Yes Notes (Text): 12/14/16 20:15 Pt was seen and examined at bedside on 12/13/16 Agree with above note and assessment Pt with resolving SBO Pt had BM and Passing gas IV antibiotics Advance diet as tolerated Plan d.w pt in detail. Risk and benefit explained in detail.
[2016-12-13] MEDS: Sodium Chloride 0.9% 1,000 ML IV SCH ×2 (08:14→21:00)
--- NOTE | 2016-12-13 08:57 | CP.PCM.CON ---
History of Present Illness - History of Present Illness History of Present Illness: THE PATIENT IS A 51 YEAR OLD MALE KNOWN TO ME FROM MY OFFICE PRACTICE AND PRIOR [facility] ADMISSIONS. HE WAS ADMITTED DUE TO A SMALL BOWEL OBSTRUCTION. HE HAS A HISTORY OF HYPERTENSION, SINUS TACHYCARDIA WITH FREQUENT PACS, PAD, HYPERLIPIDEMIA, CRF ON HD AND DM. HE DOES NOT HAVE CAD AND HAD NEGATIVE PHARMACOLOGICAL STRESS TESTS, THE LAST ONE HAVING BEEN DONE LESS THAN ONE YEAR AGO. HE WAS ON VERAPAMIL AT HOME AND IT CONTROLLED HIS TACHYCARDIA AND FREQUENT PACS BUT HAS NOT BEEN RECEIVING IT IN THE HOSPITAL HE IS NPO DUE TO THE SBO. HE WAS TACHYCARDIC WITH HEART RATES UP TO 175 BPM AND HAD AN SUPERVISOR SCRAP PREPARATION FOR THIS YESTERDAY. HE HAS BEEN RECEIVING IV CARDIZEM PRN AND IV METOPROLOL. CARDIOLOGY IS NOW CALLED TO SEE HIM FOR THE TACHYCARDIA. HE DENIES CHEST PAIN OR SOB. Past Patient History - Infectious Disease Hx of Infectious Diseases: None - Tetanus Immunizations Tetanus Immunization: Unknown - Past Medical History & Family History Past Medical History?: Yes - Past Social History Smoking Status: Never Smoked - CARDIAC Hx Atrial Fibrillation: Yes Hx Cardia Arrhythmia: Yes Hx Congestive Heart Failure: No Hx Hypercholesterolemia: Yes Hx Hypertension: Yes Hx Peripheral Edema: Yes - PULMONARY Hx Sleep Apnea: Yes - NEUROLOGICAL Hx Neurological Disorder: No Other/Comment: Hx Diabetic neuropathy - HEENT Hx HEENT Problems: No Hx Cataracts: Yes (Bilateral) Hx Epistaxis: Yes - RENAL Hx Chronic Kidney Disease: Yes Hx Kidney Stones: Yes - ENDOCRINE/METABOLIC Hx Hypothyroidism: No - HEMATOLOGICAL/ONCOLOGICAL Hx Anemia: Yes - INTEGUMENTARY Hx Dermatological Problems: No Hx Cellulitis: Yes Other/Comment: Pt. had all toenails 10 toenails removed at the age of 14 due to pain - MUSCULOSKELETAL/RHEUMATOLOGICAL Hx Arthritis: Yes Hx Fractures: No Hx Osteoporosis: Yes - GASTROINTESTINAL Hx Gastritis: Yes - GENITOURINARY/GYNECOLOGICAL Hx Genitourinary Disorders: No Hx Prostate Problems: Yes Hx Urinary Tract Infection: Yes Other/Comment: Anuric due to kidney condition, confirmed by mother patient has no kidneys - PSYCHIATRIC Hx Anxiety: Yes Hx Depression: Yes - SURGICAL HISTORY Hx Appendectomy: Yes - ANESTHESIA Hx Anesthesia: Yes Hx Anesthesia Reactions: Yes (AWAKE DURING THE SURGERY) Hx Malignant Hyperthermia: No Meds Allergies/Adverse Reactions: Allergies Allergy/AdvReac Type Severity Reaction Status Date / Time hydromorphone HCl Allergy WHEEZING Verified 12/31/15 18:30 [From Dilaudid] ketorolac [From Toradol] Allergy RASH Verified 10/16/16 06:32 propoxyphene napsylate Allergy RASH Verified 12/31/15 18:30 [From Darvocet-N] vancomycin AdvReac RASH Verified 12/31/15 18:30 - Medications Medications: Current Medications Benzocaine/Menthol (Cepacol Sore Throat) 1 berna PO Q4 PRN PRN Reason: SORETHROAT Last Admin: 12/12/16 18:48 Dose: 1 berna Famotidine (Pepcid) 20 mg IVP Q12 [facility] Last Admin: 12/12/16 21:58 Dose: 20 mg Ciprofloxacin (Cipro 400mg/200ml Dsw) 400 mg in 200 mls @ 200 mls/hr IVPB Q12 [facility] Last Admin: 12/12/16 22:26 Dose: 200 mls/hr Metronidazole (Flagyl 500mg/100ml Ns) 100 mls @ 100 mls/hr IVPB Q8@0500,1300, 2100 [facility] Last Admin: 12/13/16 05:00 Dose: 100 mls/hr Sodium Chloride (Sodium Chloride 0.9%) 1,000 mls @ 75 mls/hr IV .[id number] [facility] Stop: 12/14/16 07:29 Diltiazem HCl 125 mg/ Sodium (Chloride) 125 mls @ 5 mls/hr IV .Q24H ONE; 5 MG/ HR PRN Reason: Protocol Stop: 12/14/16 08:50 Lactic Acid (Lac-Hydrin 12% Lotion (225 G)) 1 applic TOP BID [facility] Last Admin: 12/12/16 17:44 Dose: 1 applic Metoprolol Tartrate (Lopressor) 2.5 mg IVP Q6 PRN PRN Reason: npo Last Admin: 12/13/16 03:24 Dose: 2.5 mg Morphine Sulfate (Morphine) 8 mg IVP Q4 PRN PRN Reason: Pain, moderate (4-7) Last Admin: 12/13/16 03:47 Dose: 8 mg Ondansetron HCl (Zofran Inj) 4 mg IVP Q4 PRN PRN Reason: Nausea/Vomiting Last Admin: 12/12/16 22:28 Dose: 4 mg Ondansetron HCl (Zofran Inj) 4 mg IVP Q4 PRN PRN Reason: Nausea/Vomiting Tobramycin Sulfate (Tobrex 0.3% Ophth Soln) 1 drop OU Q6 [facility] Last Admin: 12/13/16 03:33 Dose: 1 drop Physical Exam - Respiratory Exam Respiratory Exam: Clear to Auscultation Bilateral - Cardiovascular Exam Cardiovascular Exam: Irregular Rhythm, +S1, +S2 - Extremities Exam Additional comments: NO LE EDEMA - Additional Findings Additional findings: EKG 12/10/16 SINUS WITH PACS, RBBB, R 89 EKG YESTERDAY DURING SUPERVISOR SCRAP PREPARATION LOOKED LIKE ATRIAL FIBRILLATION WITH RVR LOSS CONTROL TECHNICIAN THIS AM SHOWED SINUS RHYTHM WITH PACS TROPONIN NORMAL K+ 4.8 CT SCAN WITH SBO SURGICAL NOTES REVIEWED Results - Vital Signs Recent Vital Signs: Last Vital Signs Temp 99.3 F 12/13/16 08:00 Pulse 89 12/13/16 08:00 Resp 18 12/13/16 08:00 BP 127/80 12/13/16 08:00 Pulse Ox 100 12/13/16 08:00 - Labs Result Diagrams: 12/13/16 04:44 12/13/16 04:44 Labs: Laboratory Results - last 24 hr 12/12/16 12/12/16 12/12/16 16:20 18:30 18:30 WBC 7.9 RBC 4.83 Hgb 12.9 Hct 40.2 MCV 83.2 MCH 26.7 L MCHC 32.1 L RDW 16.0 H Plt Count 210 MPV 7.7 Neut % (Auto) 66.6 Lymph % (Auto) 11.4 L [place] % (Auto) 19.1 H Eos % (Auto) 2.4 Baso % (Auto) 0.5 Neut # 5.3 Lymph # 0.9 L [place] # 1.5 H Eos # 0.2 Baso # 0.0 Neutrophils % (Manual) Band Neutrophils % Lymphocytes % (Manual) Monocytes % (Manual) Eosinophils % (Manual) Platelet Estimate PT 13.8 H INR 1.2 APTT 35.0 Sodium 133 Potassium 4.8 Chloride 97 L Carbon Dioxide 19 L Anion Gap 22 H BUN 53 H Creatinine 9.6 H* Est GFR ( Amer) 7 Est GFR (Non-Af Amer) 6 Random Glucose 95 Lactic Acid Calcium 7.7 L Total Bilirubin 1.2 AST 17 D ALT 28 Alkaline Phosphatase 303 H D Total Protein 7.4 Albumin 4.0 Globulin 3.4 Albumin/Globulin Ratio 1.2 12/12/16 12/13/16 12/13/16 18:30 04:44 04:44 WBC 8.9 RBC 5.43 Hgb 14.6 Hct 45.6 MCV 84.0 MCH 26.9 L MCHC 32.0 L RDW 16.7 H Plt Count 217 MPV 8.1 Neut % (Auto) 61.2 Lymph % (Auto) 16.0 L [place] % (Auto) 20.1 H Eos % (Auto) 2.2 Baso % (Auto) 0.5 Neut # 5.5 Lymph # 1.4 [place] # 1.8 H Eos # 0.2 Baso # 0.0 Neutrophils % (Manual) 75 Band Neutrophils % 1 Lymphocytes % (Manual) 16 L Monocytes % (Manual) 7 Eosinophils % (Manual) 1 Platelet Estimate Markedly increased H PT INR APTT Sodium 137 Potassium 5.0 Chloride 98 Carbon Dioxide 18 L Anion Gap 26 H BUN 38 H Creatinine 7.8 H* Est GFR ( Amer) 9 Est GFR (Non-Af Amer) 7 Random Glucose 74 L Lactic Acid 0.8 Calcium 8.6 Total Bilirubin 1.5 H AST 27 ALT 26 Alkaline Phosphatase 383 H D Total Protein 8.5 H Albumin 4.4 Globulin 4.1 H Albumin/Globulin Ratio 1.1 Assessment & Plan - Assessment and Plan (Free Text) Assessment: SBO WITH NGT INSERTION HISTORY OF SINUS TACHYCARDIA AND FREQUENT PACS AND TACHYCARDIC OFF VERAPAMIL- BRIEF EPISODE OF ATRIAL FIBRILLATION YESTERDAY-NOW IN NSR WITH PACS HYPERTENSION HYPERLIPIDEMIA CRF ON HD Plan: THE PATIENT WAS ON METOPROLOL 2.5 MGS IV Q 6 HRS PRN FOR TACHYCARDIA BUT I ADDED IV CARDIZEM SINCE HE IS NPO AND CAN'T TAKE VERAPAMIL TO TRY TO KEEP HIM IN SINUS RHYTHM AT GOOD RATES AND HIS RHYTHM WILL BE OBSERVED ON TELEMETRY NPO WITH NGT-SURGERY IS FOLLOWING PATIENT CONTINUE IV ANTIBIOTICS AND IV FLUIDS
[2016-12-13] MEDS: Ciprofloxacin 400mg/200ml D5W 400 MG/200 ML BAG IVPB SCH (10:12)
--- NOTE | 2016-12-13 10:56 | CT ---
PROCEDURE: CT Abdomen and Pelvis with contrast HISTORY: SBO, comparison COMPARISON: Chest, abdomen and pelvis CT 12/10/2016. TECHNIQUE: Contrast dose: Omnipaque 300, 95 cc. Radiation dose: Total exam DLP = 1441 mGy-cm. This CT exam was performed using one or more of the following dose reduction techniques: Automated exposure control, adjustment of the mA and/or kV according to patient size, and/or use of iterative reconstruction technique. FINDINGS: LOWER THORAX: Limited bibasilar dependent atelectasis is appreciated within the exact identified identified esophagus terminating at the gastroesophageal junction adjustment into the stomach is recommended. Mild cardiomegaly again noted without pericardial effusion. LIVER: No focal lesion is seen in the liver once again. GALLBLADDER AND BILE DUCTS: Gallbladder is distended without cholelithiasis or pericholecystic fluid collection. No mural thickening. PANCREAS: Unremarkable. No gross lesion or ductal dilatation. SPLEEN: Unremarkable. ADRENALS: Unremarkable. No mass. KIDNEYS AND URETERS: Partially calcified grossly atrophic bilateral [place] kidneys are identified with a right pelvic renal transplant again evident. VASCULATURE: Vascular calcifications seen diffusely as discussed below. No aortic aneurysm. BOWEL: Ileal, distended small bowel loops in the left flank have diminished somewhat in overall volume with residual local mesenteric reaction and trace ascites again associated. The obstruction pattern appears to be improved significantly with oral contrast not identified in the cecum and the ascending colon which also contained a [id number] amount of gas. No free intrarenal gas identified there is no extravasated oral concentrated. All contrast from prior CT extends all the way to the rectum in fact. [id number] AP which was seen throughout the large bowel. Extensive vascular calcifications seen the abdomen. Prior rectosigmoid segmental resection again evident. APPENDIX: Not identified. PERITONEUM: As in bowel section above. LYMPH NODES: Unremarkable. No enlarged lymph nodes. BLADDER: Decompressed completely. REPRODUCTIVE: Unremarkable. BONES: No acute fracture. OTHER FINDINGS: None. IMPRESSION: Resolving mid to distal small bowel obstruction as discussed above with limited local reactive changes again identified as well as with residual dilatation of segments of left flank small-bowel. No extravasated oral contrast material or free intrarenal gas. Continued clinical follow-up is advised.
[2016-12-13] MEDS: Ciprofloxacin 200mg/100ml D5W 100 ML IVPB SCH ×2 (12:10→21:45)
[2016-12-13] MEDS: Enoxaparin 30 mg Syringe SC SCH (12:31)
[2016-12-13] MEDS: Benzocaine/Menthol (Cepacol) Lozenge PO PRN ×2 (12:44→22:31)
--- NOTE | 2016-12-13 13:13 | CP.PCM.PN ---
Subjective - Date & Time of Evaluation Date of Evaluation: 12/13/16 Time of Evaluation: 08:00 - Subjective Subjective: 51yo M with PMHx of Atrial Fib, Arthritis, ESRD on HD s/p kidney transplant, DM , HTN who has SBO - Repeat CT: resolving SBO less rebound tenderness no fever Objective - Vital Signs/Intake and Output Vital Signs (last 24 hours): Temp Pulse Resp BP Pulse Ox 98.7 F 93 H 20 139/85 96 12/13/16 12:00 12/13/16 12:00 12/13/16 12:00 12/13/16 12:00 12/13/16 12:00 Intake and Output: 12/13/16 12/13/16 06:59 18:59 Intake Total 400 Output Total 100 Balance 300 - Medications Medications: Current Medications Benzocaine/Menthol (Cepacol Sore Throat) 1 berna PO Q4 PRN PRN Reason: SORETHROAT Last Admin: 12/13/16 12:44 Dose: 1 berna Enoxaparin Sodium (Lovenox) 30 mg SC DAILY [facility] PRN Reason: Protocol Last Admin: 12/13/16 12:31 Dose: 30 mg Famotidine (Pepcid) 20 mg IVP Q12 [facility] Last Admin: 12/13/16 09:58 Dose: 20 mg Metronidazole (Flagyl 500mg/100ml Ns) 100 mls @ 100 mls/hr IVPB Q8@0500,1300, 2100 [facility] Last Admin: 12/13/16 05:00 Dose: 100 mls/hr Sodium Chloride (Sodium Chloride 0.9%) 1,000 mls @ 75 mls/hr IV .[id number] [facility] Stop: 12/14/16 07:29 Last Admin: 12/13/16 08:14 Dose: 75 mls/hr Diltiazem HCl 125 mg/ Sodium (Chloride) 125 mls @ 5 mls/hr IV .Q24H ONE; 5 MG/ HR PRN Reason: Protocol Stop: 12/14/16 08:50 Last Admin: 12/13/16 11:00 Dose: 5 mg/hr, 5 mls/hr Ciprofloxacin (Cipro 200mg/100ml D5w) 100 mls @ 100 mls/hr IVPB Q12 [facility] Last Admin: 12/13/16 12:10 Dose: Not Given Lactic Acid (Lac-Hydrin 12% Lotion (225 G)) 1 applic TOP BID [facility] Last Admin: 12/13/16 10:12 Dose: 1 applic Metoprolol Tartrate (Lopressor) 2.5 mg IVP Q6 PRN PRN Reason: npo Last Admin: 12/13/16 03:24 Dose: 2.5 mg Morphine Sulfate (Morphine) 4 mg IVP Q4 PRN PRN Reason: Pain, moderate (4-7) Ondansetron HCl (Zofran Inj) 4 mg IVP Q4 PRN PRN Reason: Nausea/Vomiting Last Admin: 12/12/16 22:28 Dose: 4 mg Ondansetron HCl (Zofran Inj) 4 mg IVP Q4 PRN PRN Reason: Nausea/Vomiting Tobramycin Sulfate (Tobrex 0.3% Ophth Soln) 1 drop OU Q6 [facility] Last Admin: 12/13/16 10:15 Dose: 1 drop - Labs Labs: 12/13/16 04:44 12/13/16 04:44 PT 13.8 Seconds (9.8-13.1) H 12/12/16 18:30 INR 1.2 (0.9-1.2) 12/12/16 18:30 APTT 35.0 Seconds (25.6-37.1) 12/12/16 18:30 - Constitutional Appears: Non-toxic, Chronically Ill - Head Exam Head Exam: NORMOCEPHALIC - Eye Exam Eye Exam: PERRL. absent: Scleral icterus - ENT Exam ENT Exam: Mucous Membranes Dry - Neck Exam Neck Exam: absent: Lymphadenopathy - Respiratory Exam Respiratory Exam: Decreased Breath Sounds - Cardiovascular Exam Cardiovascular Exam: REGULAR RHYTHM - GI/Abdominal Exam GI & Abdominal Exam: Distended, Soft, Tenderness - Rectal Exam Rectal Exam: Deferred Assessment and Plan (1) Abdominal pain Status: Acute (2) Small bowel obstruction Status: Acute - Assessment and Plan (Free Text) Assessment: cont rx sbo- etio unknown
--- NOTE | 2016-12-13 18:41 | PN ---
SUBJECTIVE: The patient is seen today, 12/13/2016. The patient had repeated CAT scan that showed improvement of the mechanical intestinal obstruction. Nasogastric tube was removed and the patient was started on liquid diet. PHYSICAL EXAMINATION: VITAL SIGNS: Blood pressure 128/84, temperature 98.6, respiratory rate 18, and pulse 87. HEENT: Pupils equal, reactive to light. Normal-appearing mucosa of the conjunctivae, oropharyngeal, and nasal membrane mucosa. NECK: Supple. No JVD. No carotid bruits. No lymph node. No thyromegaly. CHEST AND LUNGS: Bilateral symmetrical expansion. Good air exchange. No rales. No rhonchi. CARDIOVASCULAR SYSTEM: PMI not localized. S1, S2. No additional sounds. ABDOMEN: Normoactive bowel sounds. No tenderness. No organomegaly. No masses. EXTREMITIES: No cyanosis, no clubbing, no edema. 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 No neurological deficit could be appreciated. ASSESSMENT: Small bowel obstruction, paroxysmal atrial fibrillation, hypertension, type 2 diabetes mellitus. PLAN: Continue Cardizem drip. Monitor the patient on current medications. Cardiology consultation and follow recommendations. Mildred Warren MD
--- NOTE | 2016-12-13 23:51 | CP.PCM.PN ---
Subjective - Date & Time of Evaluation Date of Evaluation: 12/13/16 Time of Evaluation: 16:00 - Subjective Subjective: SEEN ON RENAL F/U FEELS MUCH BETTER NGT IS OUT .. FEELS GREAT NO MORE ABDO PAIN .. NO MORE REBOUND TENDERNESS PT IS EATING .. PASSING GOOD BM REPEAT CT SHOWS RESOLUTION OF SBO PT MICHAEL THREE HD BACK TO BACK .. FRI . SAT AND SUN WILL PUT OFF HIS HD FROM TODAY TO TOMORROW Objective - Vital Signs/Intake and Output Vital Signs (last 24 hours): Temp Pulse Resp BP Pulse Ox 99.4 F 125 H 20 126/85 95 12/13/16 19:17 12/13/16 21:43 12/13/16 19:17 12/13/16 21:43 12/13/16 19:17 Intake and Output: 12/13/16 12/14/16 18:59 06:59 Intake Total 710 Balance 710 - Medications Medications: Current Medications Benzocaine/Menthol (Cepacol Sore Throat) 1 berna PO Q4 PRN PRN Reason: SORETHROAT Last Admin: 12/13/16 22:31 Dose: 1 berna Enoxaparin Sodium (Lovenox) 30 mg SC DAILY [facility] PRN Reason: Protocol Last Admin: 12/13/16 12:31 Dose: 30 mg Famotidine (Pepcid) 20 mg IVP Q12 [facility] Last Admin: 12/13/16 21:58 Dose: 20 mg Metronidazole (Flagyl 500mg/100ml Ns) 100 mls @ 100 mls/hr IVPB Q8@0500,1300, 2100 [facility] Last Admin: 12/13/16 21:56 Dose: 100 mls/hr Sodium Chloride (Sodium Chloride 0.9%) 1,000 mls @ 75 mls/hr IV .[id number] [facility] Stop: 12/14/16 07:29 Last Admin: 12/13/16 08:14 Dose: 75 mls/hr Ciprofloxacin (Cipro 200mg/100ml D5w) 100 mls @ 100 mls/hr IVPB Q12 [facility] Last Admin: 12/13/16 21:45 Dose: 100 mls/hr Lactic Acid (Lac-Hydrin 12% Lotion (225 G)) 1 applic TOP BID [facility] Last Admin: 12/13/16 17:15 Dose: 1 applic Metoprolol Tartrate (Lopressor) 2.5 mg IVP Q6 PRN PRN Reason: npo Last Admin: 12/13/16 03:24 Dose: 2.5 mg Morphine Sulfate (Morphine) 4 mg IVP Q4 PRN PRN Reason: Pain, moderate (4-7) Last Admin: 12/13/16 23:09 Dose: 4 mg Ondansetron HCl (Zofran Inj) 4 mg IVP Q4 PRN PRN Reason: Nausea/Vomiting Last Admin: 12/12/16 22:28 Dose: 4 mg Ondansetron HCl (Zofran Inj) 4 mg IVP Q4 PRN PRN Reason: Nausea/Vomiting Tobramycin Sulfate (Tobrex 0.3% Ophth Soln) 1 drop OU Q6 [facility] Last Admin: 12/13/16 22:03 Dose: 1 drop Verapamil HCl (Calan Tab) 80 mg PO TID [facility] Last Admin: 12/13/16 21:43 Dose: 80 mg - Labs Labs: 12/13/16 04:44 12/13/16 04:44 PT 13.8 Seconds (9.8-13.1) H 12/12/16 18:30 INR 1.2 (0.9-1.2) 12/12/16 18:30 APTT 35.0 Seconds (25.6-37.1) 12/12/16 18:30 Assessment and Plan - Assessment and Plan (Free Text) Assessment: ESRD ON HD M W F .. HD IN AM INSTEAD OF TODAY SBO MOST LIKELY 2/2 VOLVULUS .. RESOLVED WITH CONSERVATIVE MANAGEMNET MULTIPLE CO MORBIDITIES P : C/O PRESENT MANAGEMENT HD EARLY AM .. IF CLINICALLY STABLE CAN BE D/C POST HD .. WILL D/W DR BATES C/O PRESENT MEDS
[2016-12-14] MEDS: metroNIDAZOLE 500mg/100ml NS 100 ML IVPB SCH ×2 (05:13→13:30)
[2016-12-14] MEDS: Tobramycin 0.3% OPHT SOLN OU SCH ×2 (05:14→10:20)
[2016-12-14] MEDS: Morphine 4 MG/ML VIAL IVP PRN ×2 (06:58→10:20)
[2016-12-14 08:06] VITALS: RESP 20
--- NOTE | 2016-12-14 08:27 | CP.PCM.PN ---
Subjective - Date & Time of Evaluation Date of Evaluation: 12/14/16 Time of Evaluation: 08:26 - Subjective Subjective: Surgery: Dr. Hung Pt seen and examined. Resting comfortably in bed. FLD tolerated yesterday. No N/ V. +flatus/BM. Would like to eat more. Objective - Vital Signs/Intake and Output Vital Signs (last 24 hours): Temp Pulse Resp BP Pulse Ox 97.1 F L 85 20 158/91 H 97 12/14/16 08:05 12/14/16 08:05 12/14/16 08:05 12/14/16 08:05 12/14/16 08:05 - Medications Medications: Current Medications Benzocaine/Menthol (Cepacol Sore Throat) 1 berna PO Q4 PRN PRN Reason: SORETHROAT Last Admin: 12/13/16 22:31 Dose: 1 benra Enoxaparin Sodium (Lovenox) 30 mg SC DAILY [facility] PRN Reason: Protocol Last Admin: 12/13/16 12:31 Dose: 30 mg Famotidine (Pepcid) 20 mg IVP Q12 [facility] Last Admin: 12/13/16 21:58 Dose: 20 mg Metronidazole (Flagyl 500mg/100ml Ns) 100 mls @ 100 mls/hr IVPB Q8@0500,1300, 2100 [facility] Last Admin: 12/14/16 05:13 Dose: 100 mls/hr Ciprofloxacin (Cipro 200mg/100ml D5w) 100 mls @ 100 mls/hr IVPB Q12 [facility] Last Admin: 12/13/16 21:45 Dose: 100 mls/hr Lactic Acid (Lac-Hydrin 12% Lotion (225 G)) 1 applic TOP BID [facility] Last Admin: 12/13/16 17:15 Dose: 1 applic Metoprolol Tartrate (Lopressor) 2.5 mg IVP Q6 PRN PRN Reason: npo Last Admin: 12/13/16 03:24 Dose: 2.5 mg Morphine Sulfate (Morphine) 4 mg IVP Q4 PRN PRN Reason: Pain, moderate (4-7) Last Admin: 12/14/16 06:58 Dose: 4 mg Ondansetron HCl (Zofran Inj) 4 mg IVP Q4 PRN PRN Reason: Nausea/Vomiting Last Admin: 12/12/16 22:28 Dose: 4 mg Ondansetron HCl (Zofran Inj) 4 mg IVP Q4 PRN PRN Reason: Nausea/Vomiting Tobramycin Sulfate (Tobrex 0.3% Ophth Soln) 1 drop OU Q6 [facility] Last Admin: 12/14/16 05:14 Dose: 1 drop Verapamil HCl (Calan Tab) 80 mg PO TID [facility] Last Admin: 12/13/16 21:43 Dose: 80 mg - Labs Labs: 12/13/16 04:44 12/13/16 04:44 PT 13.8 Seconds (9.8-13.1) H 12/12/16 18:30 INR 1.2 (0.9-1.2) 12/12/16 18:30 APTT 35.0 Seconds (25.6-37.1) 12/12/16 18:30 - Constitutional Appears: Non-toxic, No Acute Distress - Head Exam Head Exam: ATRAUMATIC, NORMOCEPHALIC - Eye Exam Eye Exam: EOMI - ENT Exam ENT Exam: Mucous Membranes Moist - Neck Exam Neck Exam: Full ROM - Respiratory Exam Respiratory Exam: NORMAL BREATHING PATTERN. absent: Accessory Muscle Use, Respiratory Distress - GI/Abdominal Exam GI & Abdominal Exam: Soft. absent: Distended, Firm, Guarding, Rigid, Tenderness , Rebound - Neurological Exam Neurological Exam: Alert, Awake, Oriented x3 Assessment and Plan - Assessment and Plan (Free Text) Assessment: 51M w. SBO -NGT removed yesterday -Tolerating FLD, will advance to renal diet -no plans for surgical intervention at this time -will continue to follow -will d/w attending Zemaitis PGY3
[2016-12-14] MEDS: Benzocaine/Menthol (Cepacol) Lozenge PO PRN (10:08)
[2016-12-14] MEDS: Enoxaparin 30 mg Syringe SC SCH (10:09)
[2016-12-14] MEDS: Ciprofloxacin 200mg/100ml D5W 100 ML IVPB SCH (10:09)
--- NOTE | 2016-12-14 10:09 | CP.PCM.PN ---
Subjective - Date & Time of Evaluation Date of Evaluation: 12/14/16 Time of Evaluation: 08:00 - Subjective Subjective: FEELS GOOD, SBO HAS CLEARED, HAS HAD 2 BMS AND PAIN IS GONE AND FEELS GOOD NO CHEST PAIN OR PALPITATIONS Objective - Vital Signs/Intake and Output Vital Signs (last 24 hours): Temp Pulse Resp BP Pulse Ox 97.1 F L 85 20 158/91 H 97 12/14/16 08:05 12/14/16 08:05 12/14/16 08:05 12/14/16 08:05 12/14/16 08:05 - Medications Medications: Current Medications Benzocaine/Menthol (Cepacol Sore Throat) 1 berna PO Q4 PRN PRN Reason: SORETHROAT Last Admin: 12/13/16 22:31 Dose: 1 berna Enoxaparin Sodium (Lovenox) 30 mg SC DAILY [facility] PRN Reason: Protocol Last Admin: 12/13/16 12:31 Dose: 30 mg Famotidine (Pepcid) 20 mg IVP Q12 [facility] [place] Last Admin: 12/13/16 21:58 Dose: 20 mg Metronidazole (Flagyl 500mg/100ml Ns) 100 mls @ 100 mls/hr IVPB Q8@0500,1300, 2100 [facility] [place] Last Admin: 12/14/16 05:13 Dose: 100 mls/hr Ciprofloxacin (Cipro 200mg/100ml D5w) 100 mls @ 100 mls/hr IVPB Q12 [facility] [place] Last Admin: 12/13/16 21:45 Dose: 100 mls/hr Lactic Acid (Lac-Hydrin 12% Lotion (225 G)) 1 applic TOP BID [facility] [place] Last Admin: 12/13/16 17:15 Dose: 1 applic Metoprolol Tartrate (Lopressor) 2.5 mg IVP Q6 PRN PRN Reason: npo Last Admin: 12/13/16 03:24 Dose: 2.5 mg Morphine Sulfate (Morphine) 4 mg IVP Q4 PRN PRN Reason: Pain, moderate (4-7) Last Admin: 12/14/16 06:58 Dose: 4 mg Ondansetron HCl (Zofran Inj) 4 mg IVP Q4 PRN PRN Reason: Nausea/Vomiting Last Admin: 12/12/16 22:28 Dose: 4 mg Ondansetron HCl (Zofran Inj) 4 mg IVP Q4 PRN PRN Reason: Nausea/Vomiting Tobramycin Sulfate (Tobrex 0.3% Ophth Soln) 1 drop OU Q6 [facility] [place] Last Admin: 12/14/16 05:14 Dose: 1 drop Verapamil HCl (Calan Tab) 80 mg PO TID [facility] [place] Last Admin: 12/13/16 21:43 Dose: 80 mg - Labs Labs: 12/13/16 04:44 12/13/16 04:44 PT 13.8 Seconds (9.8-13.1) H 12/12/16 18:30 INR 1.2 (0.9-1.2) 12/12/16 18:30 APTT 35.0 Seconds (25.6-37.1) 12/12/16 18:30 - Respiratory Exam Respiratory Exam: Clear to Ausculation Bilateral - Cardiovascular Exam Cardiovascular Exam: REGULAR RHYTHM, +S1, +S2 - Extremities Exam Additional comments: NO LE EDEMA - Additional Findings 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
[2016-12-14 12:21] VITALS: PULSE 85; TEMP 98.4; O2SAT 97
[2016-12-14 13:47] VITALS: BP 158/91
--- NOTE | 2016-12-15 18:32 | CARD ---
APPROVED REPORT EKG Measurement Heart [id number] <Conclusion> Atrial fibrillation with rapid ventricular response Right bundle branch block, plus right ventricular hypertrophy Abnormal ECG
--- NOTE | 2016-12-16 07:09 | DS ---
REASON FOR ADMISSION: This is 51-year-old male who has history of multiple medical problems who was admitted for abdominal pain found to have mechanical small-bowel obstruction. COURSE OF HOSPITALIZATION: The patient was admitted to telemetry floor and he was continued on hemodialysis. The patient had a surgical consultation done and had a nasogastric tube placed. Repeated CAT scans and x-rays found that mechanical obstruction was resolved and nasogastric tube was removed and the patient was started on liquid diet that he tolerated well. The patient was able to pass gas as well as able to move bowel. The patient was kept on antibiotics during this , and was discharged after he was able to tolerate his regular diet without any abdominal pain or symptoms. The patient was discharged on 12/14/2016 to resume his hemodialysis on 12/15/[address] Pinto. FINAL DIAGNOSES: 1. Mechanical small-bowel obstruction. 2. End-stage renal disease on hemodialysis. 3. Hypertension. 4. Type 2 diabetes mellitus. Mildred Warren MD MTDFang
== END 2016-12-14 15:00 | disposition home or self-care (01) | DRG 388 ==
LOC: H.ER 03:48 → H.ERHOLD 08:00 → H.TEL 10:09
PROVIDERS: ADMIT Internal Medicine; ATTEND Internal Medicine
PROC: 5A1D60Z (ICD-10-PCS; principal; 2016-12-10)
DX: K56.69 Other intestinal obstruction (principal); N18.6 End stage renal disease; E11.22 Type 2 diabetes mellitus with diabetic chronic kidney disease; R34 Anuria and oliguria; I12.0 Hypertensive chronic kidney disease with stage 5 chronic kidney disease or end stage renal disease; I48.0 Paroxysmal atrial fibrillation; E11.40 Type 2 diabetes mellitus with diabetic neuropathy, unspecified; Z94.0 Kidney transplant status; D63.1 Anemia in chronic kidney disease; E78.00 Pure hypercholesterolemia, unspecified; E78.5 Hyperlipidemia, unspecified; G47.30 Sleep apnea, unspecified; K21.9 Gastro-esophageal reflux disease without esophagitis; K29.70 Gastritis, unspecified, without bleeding; K52.9 Noninfective gastroenteritis and colitis, unspecified; K56.2 Volvulus; M81.0 Age-related osteoporosis without current pathological fracture; Z79.01 Long term (current) use of anticoagulants; Z79.02 Long term (current) use of antithrombotics/antiplatelets; Z79.899 Other long term (current) drug therapy; Z83.3 Family history of diabetes mellitus; Z87.440 Personal history of urinary (tract) infections; Z87.442 Personal history of urinary calculi; Z90.49 Acquired absence of other specified parts of digestive tract; Z99.2 Dependence on renal dialysis; F32.9 Major depressive disorder, single episode, unspecified; F41.9 Anxiety disorder, unspecified; H26.9 Unspecified cataract; M19.90 Unspecified osteoarthritis, unspecified site; R60.0 Localized edema; R00.0 Tachycardia, unspecified; R07.9 Chest pain, unspecified

== ENCOUNTER 2016-12-24 15:10 | Inpatient (IN) | payer MEDICARE, MEDICAID ==
[2016-12-24 15:10] VITALS: BMI 25.0
--- NOTE | 2016-12-24 15:32 | ED PDOC ---
HPI: General Adult Time Seen by Provider: 12/24/16 15:19 Chief Complaint (Nursing): Upper Extremity Problem/Injury Chief Complaint (Provider): Arm Pain History Per: Patient History/Exam Limitations: no limitations Onset/Duration Of Symptoms: Days (x 3) Current Symptoms Are (Timing): Still Present Additional Complaint(s): Akash Appiah is a 51 y/o male with Stage 5 CKD who was referred to ED from Dialysis Center for complaints of nausea, pain at dialysis site on arm, and feeling of "fullness", ongoing for the past 3 days. Patient last received dialysis on Tuesday, missed Tuesday and Tuesday due to clotting at dialysis site. Denies any associated leg pain, abdominal pain, numbness, or tingling. Patient has been admitted here in the past under service of Dr. Warren. No chest pain, dyspnea, weakness. No fever. PMD: Shaik Andree Past Medical History Reviewed: Historical Data, Nursing Documentation, Vital Signs Vital Signs: Last Vital Signs Temp 98.7 F 12/24/16 15:13 Pulse 91 H 12/24/16 15:13 Resp 18 12/24/16 15:13 BP 132/83 12/24/16 15:13 Pulse Ox 99 12/24/16 16:57 - Medical History PMH: Anemia, Anxiety, Arthritis, Atrial Fibrillation, Cardia Arrhythmia, Depression, Diabetes (type II), Gastritis, GERD, HTN, Hypercholesterolemia, Kidney Stones, Osteoporosis, Peripheral Edema, End Stage Renal Disease, Chronic Kidney Disease (stage 5), Sleep Apnea Denies: CHF, Fractures, Hypothyroidism Other PMH: Cataracs, osteoarthritis, restless leg syndrome, tendonitis, bursitis - Surgical History Surgical History: Appendectomy, Endoscopy - Family History Family History: States: Unknown Family Hx - Living Arrangements Living Arrangements: With Family - Social History Current smoker - smoking cessation education provided: No Alcohol: None Drugs: Denies - Home Medications Home Medications: Ambulatory Orders Medication Instructions Recorded Acetaminophen/Oxycodone Hydr 1 tab PO Q6H PRN 05/24/16 [Percocet 10/325 mg Tab] Ammonium Lactate 12% [Lac-Hydrin 1 appl TOP BID 05/24/16 12% Lotion (225 g)] Apixaban [Eliquis] 2.5 mg PO BID 05/24/16 Atorvastatin [Lipitor] 20 mg PO HS 05/24/16 Clopidogrel [Plavix] 75 mg PO DAILY 05/24/16 Esomeprazole Magnesium [Nexium] 40 mg PO DAILY 05/24/16 Febuxostat [Uloric] 40 mg PO DAILY 05/24/16 Megestrol Acetate [Megace] 5 ml PO Q6H 05/24/16 Minoxidil 2.5 mg PO BID 05/24/16 [id number] Ethyl Esters 1 GM 1 gm PO BID 05/24/16 [Lovaza] Sevelamer Carbonate [Renvela] 2,400 mg PO TID 05/24/16 Tamsulosin [Flomax] 0.4 mg PO DAILY 05/24/16 Vitamin B Complex/Vit C/Folic 1 tab PO DAILY 05/24/16 [Nephro-Garcia] Alprazolam [Xanax] 0.5 mg PO TID PRN 07/19/16 Insulin Aspart, Recombinant 5 unit SC TID 07/19/16 [Novolog] Insulin Detemir [Levemir] 20 unit SC HS 07/19/16 PARoxetine [Paxil] 10 mg PO DAILY 07/19/16 Ropinirole HCl [Requip] 2 mg PO QAM 10/15/16 Amino Acids/Protein Hydrolys 60 ml PO DAILY 12/10/16 [Liquacel 100 Liquid Protein] Atropine/Diphenoxylate [Lomotil 2 tab PO BID PRN 12/10/16 0.025-2.5 mg tablet] rOPINIRole [Requip] 3 mg PO HS 12/10/16 Tobramycin 0.3% [Tobrex 0.3% Ophth 1 drop OU Q6 #1 10 12/14/16 Soln] Verapamil [Calan Tab] 80 mg PO TID #90 tab 12/14/16 - Allergies Allergies/Adverse Reactions: Allergies Allergy/AdvReac Type Severity Reaction Status Date / Time hydromorphone HCl Allergy WHEEZING Verified 12/24/16 15:13 [From Dilaudid] ketorolac [From Toradol] Allergy RASH Verified 12/24/16 15:13 propoxyphene napsylate Allergy RASH Verified 12/24/16 15:13 [From Darvocet-N] vancomycin AdvReac RASH Verified 12/24/16 15:13 Review of Systems ROS Statement: Except As Marked, All Systems Reviewed And Found Negative Gastrointestinal: Positive for: Nausea, Other (feeling of "fullness"). Negative for: Abdominal Pain Musculoskeletal: Positive for: Arm Pain (at dialysis site). Negative for: Leg Pain Neurological: Negative for: Numbness, Other (Tingling) Physical Exam - Reviewed Nursing Documentation Reviewed: Yes Vital Signs Reviewed: Yes - Physical Exam Appears: Positive for: Non-toxic, No Acute Distress Head Exam: Positive for: ATRAUMATIC, NORMAL INSPECTION, NORMOCEPHALIC Skin: Positive for: Normal Color, Warm, Dry Eye Exam: Positive for: EOMI, Normal appearance, PERRL Neck: Positive for: Normal, Painless ROM, Supple Cardiovascular/Chest: Positive for: Regular Rate, Rhythm. Negative for: Murmur Respiratory: Positive for: Normal Breath Sounds. Negative for: Accessory Muscle Use, Respiratory Distress Gastrointestinal/Abdominal: Positive for: Normal Exam, Soft. Negative for: Tenderness Back: Positive for: Normal Inspection. Negative for: L CVA Tenderness, R CVA Tenderness, Vertebral Tenderness Extremity: Positive for: Normal ROM, Deformity (Right foot amputation), Other ( Bruit on left arm at fistula site) Neurologic/Psych: Positive for: Alert, Oriented, Motor/Sensory Deficits ( Chronic weakness of left arm, strength 3/5) - Laboratory Results Result Diagrams: 12/24/16 15:49 12/24/16 15:49 Interpretation Of Abnormal: 84/16.1 bun/cr; 5.2 k - ECG ECG Rhythm: Positive for: Right Bundle Branch Block Interpretation Of Abn EKG: same as old O2 Sat by Pulse Oximetry: 99 (RA) Pulse Ox Interpretation: Normal - Progress ED Course And Treament: 1903: Spoke with Dr. Pinto. Well aware of pt. Will consult. Does not want any meds for tx at this time. Aware of all findings and labs. Spoke with Dr. Warren who will admit and give further orders when pt. reaches floor. Medical Decision Making Medical Decision Making: Time: 15:37 Initial Plan: --CMP --Magnesium --Phosphorous --Troponin I --CBC --PTT --Prothrombin time --EKG --Pending reevaluation Time: 16:52 --Patient given Morphine 4 mg IV Scribe Attestation: Documented by Monique Moran, acting as a scribe for Ricky Gallegos MD Provider Scribe Attestation: All medical record entries made by the Scribe were at my direction and personally dictated by me. I have reviewed the chart and agree that the record accurately reflects my personal performance of the history, physical exam, medical decision making, and the department course for this patient. I have also personally directed, reviewed, and agree with the discharge instructions and disposition. Disposition - Clinical Impression Clinical Impression: Dialysis AV fistula malfunction - Patient ED Disposition Is Patient to be Admitted: Yes Counseled Patient/Family Regarding: Studies Performed, Diagnosis - Disposition Disposition Time: 19:05 Condition: FAIR - Pt Status Changed To: Hospital Disposition Of: Inpatient - Admit Certification Admit to Inpatient:: After my assessment, the patient will require hospitalization for at least two midnights. This is because of the severity of symptoms shown, intensity of services needed, and/or the medical risk in this patient being treated as an outpatient. - POA Present On Arrival: None
[2016-12-24 16:13] LABS: BASO # 0.1 K/uL (0.0-0.2); EOS # 0.3 K/uL (0.0-0.7); EOS % 3.7 % (0.0-4.0); HEMOGLOBIN 12.3 g/dL (12.0-18.0); LYMPH # 1.5 K/uL (1.0-4.3); LYMPH % 18.4 % (20.0-40.0); MEAN CELL VOLUME 81.5 fl (80.0-94.0); MEAN CORPUSCULAR HEMOGLOBIN 26.8 pg (27.0-31.0); MEAN CORPUSCULAR HGB CONC 32.9 g/dL (33.0-37.0); MEAN PLATELET VOLUME 7.2 fl (7.2-11.7); MONO % 12.2 % (0.0-10.0); NEUT # 5.4 K/uL (1.8-7.0); NEUT % 64.7 % (50.0-75.0); RBC 4.59 Mil/uL (4.40-5.90); RED CELL DISTRIBUTION WIDTH 16.8 % (11.5-14.5); WHITE BLOOD COUNT 8.3 K/uL (4.8-10.8)
[2016-12-24 16:22] LABS: ALB/GLOB RATIO 1.2 (1.0-2.1); ALBUMIN 4.1 g/dL (3.5-5.0); CALCIUM 10.1 mg/dL (8.4-10.2)
[2016-12-24 16:41] LABS: TROPONIN I 0.02 ng/mL (0.00-0.120)
[2016-12-24 17:21] LABS: INR 1.3 (0.9-1.2); PARTIAL THROMBOPLASTIN TIME 36.3 Seconds (25.6-37.1); PROTHROMBIN TIME 13.6 Seconds (9.8-13.1)
[2016-12-24] MEDS ORDERED: Morphine 4 MG/ML VIAL ONE (17:25)
[2016-12-24] MEDS ORDERED: Sod Polystyrene Sulf 15 gm/60 ml Oral Susp PO ONE (18:14)
[2016-12-24] MEDS ORDERED: Albuterol 0.083% Inhal Sol (2.5 mg/3 mL) UD INH STA (18:15)
[2016-12-24] MEDS ORDERED: Sod Polystyrene Sulf 15 gm/60 ml Oral Susp ONE (18:28)
[2016-12-24] MEDS ORDERED: Albuterol 0.083% Inhal Sol (2.5 mg/3 mL) UD ONE (18:28)
[2016-12-24] MEDS ORDERED: HYDROmorphone 0.5 mg/0.5 ml ISec ONE ×2 (19:34→19:35)
[2016-12-24] MEDS ORDERED: Atropine-Diphenoxylate 0.025-2.5 mg Tab PO PRN (21:56)
[2016-12-24] MEDS ORDERED: Insulin Detemir 100 Units/ml Inj SC SCH (22:00)
[2016-12-24] MEDS: Megestrol Acetate 40 mg/ml Cup PO SCH (23:14)
[2016-12-25] MEDS: Megestrol Acetate 40 mg/ml Cup PO SCH ×2 (04:00→09:03)
[2016-12-25] MEDS ORDERED: Insulin Regular 100 units/ml SC SCH (07:30)
--- NOTE | 2016-12-25 08:14 | CARD ---
APPROVED REPORT EKG Measurement Heart [id number] <Conclusion> Normal sinus rhythm Left axis deviation Right bundle branch block Abnormal ECG
[2016-12-25 08:26] VITALS: BP 156/78; PULSE 77; RESP 20; TEMP 98.3; O2SAT 96
[2016-12-25] MEDS ORDERED: Multivitamin Vitamin B Complex (Nephro-Vite) Tab PO SCH (09:00)
[2016-12-25] MEDS ORDERED: PROTEIN HYDR PO SCH (09:00)
[2016-12-25] MEDS ORDERED: Insulin Lispro (humaLOG) 100 Units/ml Inj SC SCH (09:00)
[2016-12-25] MEDS ORDERED: WHEY PRO PO SCH (09:00)
[2016-12-25] MEDS ORDERED: AMINO AC PO SCH (09:00)
[2016-12-25] MEDS ORDERED: [UNRECOGNIZED DRUG - OTHER] PO SCH (09:00)
[2016-12-25] MEDS ORDERED: Omega-3-Acid Ethyl Esters 1 GM Cap PO SCH (09:00)
[2016-12-25] MEDS ORDERED: Pantoprazole 40 mg EC Tab PO SCH (09:00)
--- NOTE | 2016-12-25 09:10 | CP.PCM.CON ---
<Lucia Da Silva - Last Filed: 12/25/16 09:03> History of Present Illness - History of Present Illness History of Present Illness: Surgery consult for Dr. Cuevas 51 M w PMH of renal CA, DM. SBO PSH of multiple failed AVF and failed renal transplant came with dizziness and nausea. Pt is on HD MWF and Last HD was on Tuesday because L AVF got clogged. Pt reports trying to get it fixed on but re-clogged. Alexsandra F/D. Pt is anuric. Cr. is 16. His baseline is 8. K is 5.2. Pt is going to OR for ultrasound guided HD catheter with intraop venogram. SS: lives with family PHS: ex lap, failed renal transplant x2, failed AVF x7 b/l LE and R groin, Peritoneal dyalysis catheter. PMH: ESRD on HD MWF, DM, HTN Review of Systems - Review of Systems Review of Systems: See HPI Past Patient History - Infectious Disease Hx of Infectious Diseases: None - Tetanus Immunizations Tetanus Immunization: Unknown - Past Medical History & Family History Past Medical History?: Yes - Past Social History Smoking Status: Never Smoked - CARDIAC Hx Cardiac Disorders: Yes Hx Atrial Fibrillation: Yes Hx Cardia Arrhythmia: Yes Hx Congestive Heart Failure: No Hx Hypercholesterolemia: Yes Hx Hypertension: Yes Hx Peripheral Edema: Yes - PULMONARY Hx Respiratory Disorders: Yes Hx Sleep Apnea: Yes - NEUROLOGICAL Hx Neurological Disorder: Yes Other/Comment: Hx Diabetic neuropathy - HEENT Hx HEENT Problems: Yes Hx Cataracts: Yes (Bilateral) Hx Epistaxis: Yes - RENAL Hx Chronic Kidney Disease: Yes (stage 5) Hx Dialysis: Yes Type of Dialysis Access: Left AVG Hx Kidney Stones: No Hx Neurogenic Bladder: No Hx Pyelonephritis: No Hx Renal (Kidney) Cancer: No Hx Renal Failure: Yes - ENDOCRINE/METABOLIC Hx Endocrine Disorders: Yes Hx Diabetes Mellitus Type 2: Yes Hx Hypothyroidism: No - HEMATOLOGICAL/ONCOLOGICAL Hx Blood Disorders: Yes Hx AIDS: No Hx Anemia: Yes Hx Human Immunodeficiency Virus (HIV): No - INTEGUMENTARY Hx Dermatological Problems: Yes Hx Cellulitis: Yes Other/Comment: Pt. had all toenails 10 toenails removed at the age of 14 due to pain - MUSCULOSKELETAL/RHEUMATOLOGICAL Hx Musculoskeletal Disorders: Yes Hx Arthritis: Yes Hx Falls: No Hx Fractures: No Hx Osteoporosis: Yes - GASTROINTESTINAL Hx Gastrointestinal Disorders: Yes Hx Gastritis: Yes - GENITOURINARY/GYNECOLOGICAL Hx Genitourinary Disorders: Yes Hx Prostate Problems: Yes Hx Urinary Tract Infection: Yes Other/Comment: Anuric due to kidney condition, confirmed by mother patient has no kidneys - PSYCHIATRIC Hx Psychophysiologic Disorder: Yes Hx Anxiety: Yes Hx Depression: Yes Hx Substance Use: No - SURGICAL HISTORY Hx Surgeries: Yes Hx Appendectomy: Yes Hx Vascular Surgery: Yes Hx Vascular Access Device: Yes Other/Comment: rt old avg. left old avg. rt femoral avg - ANESTHESIA Hx Anesthesia: Yes Hx Anesthesia Reactions: Yes (AWAKE DURING THE SURGERY) Hx Malignant Hyperthermia: No Meds Allergies/Adverse Reactions: Allergies Allergy/AdvReac Type Severity Reaction Status Date / Time ketorolac [From Toradol] Allergy RASH Verified 12/24/16 15:13 propoxyphene napsylate Allergy RASH Verified 12/24/16 15:13 [From Darvocet-N] vancomycin AdvReac RASH Verified 12/24/16 15:13 - Medications Medications: Current Medications Alprazolam (Xanax) 0.5 mg PO TID PRN PRN Reason: Anxiety Apixaban (Eliquis) 2.5 mg PO BID [facility] PRN Reason: Protocol Last Admin: 12/25/16 08:20 Dose: Not Given Atorvastatin Calcium (Lipitor) 20 mg PO [facility] Last Admin: 12/24/16 23:11 Dose: 20 mg Clopidogrel Bisulfate (Plavix) 75 mg PO DAILY [facility] Last Admin: 12/25/16 08:21 Dose: Not Given Diphenoxylate HCl/Atropine (Lomotil 0.025-2.5 Mg Tablet) 2 tab PO BID PRN PRN Reason: Diarrhea Last Admin: 12/24/16 22:12 Dose: 2 tab Home Med (Amino Ac/Protein Hydr/Whey Pro [Liquacel Liquid Protein Packet]) 30 ml PO DAILY [facility] Home Med (Febuxostat [Uloric]) 40 mg PO DAILY [facility] Hydromorphone HCl (Dilaudid) 1 mg IVP Q4 PRN PRN Reason: Pain, severe (8-10) Last Admin: 12/25/16 08:30 Dose: 1 mg Insulin Detemir (Levemir) 20 units SC [facility] Last Admin: 12/24/16 22:35 Dose: Not Given Insulin Human Lispro (Humalog) 5 units SC TID [facility] Last Admin: 12/25/16 08:21 Dose: Not Given Insulin Human Regular (Humulin R) 0 units SC [facility] PRN Reason: Protocol Last Admin: 12/25/16 06:57 Dose: Not Given Lactic Acid (Lac-Hydrin 12% Lotion (225 G)) 1 applic TOP BID [facility] Last Admin: 12/25/16 08:23 Dose: 1 applic Megestrol Acetate (Megace) 200 mg PO Q6H [facility] Last Admin: 12/25/16 04:00 Dose: Not Given Minoxidil (Minoxidil) 2.5 mg PO BID [facility] Last Admin: 12/24/16 23:10 Dose: 2.5 mg Coyji-5-Tcvx Ethyl Esters (Lovaza) 1 gm PO BID [facility] Last Admin: 12/25/16 08:21 Dose: Not Given Pantoprazole Sodium (Protonix Ec Tab) 40 mg PO DAILY [facility] Last Admin: 12/25/16 08:21 Dose: Not Given Paroxetine HCl (Paxil) 10 mg PO DAILY [facility] Last Admin: 12/25/16 08:21 Dose: Not Given Sevelamer HCl (Renagel) 2,400 mg PO TID [facility] Last Admin: 12/25/16 08:21 Dose: Not Given Tamsulosin HCl (Flomax) 0.4 mg PO DAILY [facility] Last Admin: 12/25/16 08:20 Dose: Not Given Verapamil HCl (Calan Tab) 120 mg PO TID [facility] Last Admin: 12/25/16 08:20 Dose: Not Given Vitamin B Complex/Vit C/Folic Acid (Nephro-Garcia) 1 tab PO DAILY [facility] Last Admin: 12/25/16 08:21 Dose: Not Given Physical Exam - Constitutional Appears: Non-toxic - Head Exam Head Exam: ATRAUMATIC, NORMAL INSPECTION, NORMOCEPHALIC - Eye Exam Eye Exam: EOMI, Normal appearance, PERRL Pupil Exam: NORMAL ACCOMODATION, PERRL - ENT Exam ENT Exam: Mucous Membranes Moist, Normal Exam - Neck Exam Neck exam: Positive for: Normal Inspection - Respiratory Exam Respiratory Exam: Clear to Auscultation Bilateral, NORMAL BREATHING PATTERN - Cardiovascular Exam Cardiovascular Exam: REGULAR RHYTHM - GI/Abdominal Exam GI & Abdominal Exam: Normal Bowel Sounds, Soft. absent: Distended, Firm, Guarding, Hernia, Tenderness - Exam Exam: NORMAL INSPECTION - Extremities Exam Additional comments: TMA - Back Exam Back exam: NORMAL INSPECTION - Neurological Exam Neurological exam: Alert, CN II-XII Intact, Oriented x3, Reflexes Normal - Psychiatric Exam Psychiatric exam: Normal Affect, Normal Mood - Skin Skin Exam: Dry, Intact, Normal Color, Warm Results - Vital Signs Recent Vital Signs: Last Vital Signs Temp 98.3 F 12/25/16 08:26 Pulse 77 12/25/16 08:26 Resp 20 12/25/16 08:26 BP 156/78 H 12/25/16 08:26 Pulse Ox 96 12/25/16 08:26 - Labs Result Diagrams: 12/24/16 15:49 12/24/16 15:49 Labs: Laboratory Results - last 24 hr 12/24/16 12/25/16 22:16 05:57 POC Glucose (mg/dL) 124 H 135 H Assessment & Plan - Assessment and Plan (Free Text) Assessment: Clogged AVF : multiple failed AVF Cr 16 K 5.2 -OR today for guilded HD catheter intra op venogram -NPO -Transfer to [facility] Dr. Cuevas <Kirby Cuevas - Last Filed: 12/26/16 10:12> Results - Vital Signs Recent Vital Signs: Last Vital Signs Temp 98.3 F 12/25/16 08:26 Pulse 77 12/25/16 08:26 Resp 20 12/25/16 08:26 BP 156/78 H 12/25/16 08:26 Pulse Ox 96 12/25/16 08:26 - Labs Result Diagrams: 12/24/16 15:49 12/24/16 15:49 Assessment & Plan - Assessment and Plan (Free Text) Plan: Patient seen and examined. This is an extremely difficult dialysis access case. Left arm HeRo graft had been used for dialysis last few months until it clotted five days ago. An attempt to declot the graft done at the outside facility failed and patient has not been dialyzed for five days. He's getting symptomatic with fluid overload and is developing hyperkalemia. 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
== END 2016-12-25 09:56 | disposition short-term general hospital (02) | DRG 314 ==
LOC: H.ER 15:10 → H.ERHOLD 18:55 → H.MEDSURG1 21:27
PROVIDERS: ADMIT Internal Medicine; ATTEND Internal Medicine
DX: T82.510A Breakdown (mechanical) of surgically created arteriovenous fistula, initial encounter (principal); N18.6 End stage renal disease; T86.12 Kidney transplant failure; I12.0 Hypertensive chronic kidney disease with stage 5 chronic kidney disease or end stage renal disease; E11.22 Type 2 diabetes mellitus with diabetic chronic kidney disease; I48.91 Unspecified atrial fibrillation; E11.40 Type 2 diabetes mellitus with diabetic neuropathy, unspecified; G25.81 Restless legs syndrome; G47.30 Sleep apnea, unspecified; K21.9 Gastro-esophageal reflux disease without esophagitis; E78.00 Pure hypercholesterolemia, unspecified; M81.0 Age-related osteoporosis without current pathological fracture; K29.70 Gastritis, unspecified, without bleeding; F41.9 Anxiety disorder, unspecified; Y83.0 Surgical operation with transplant of whole organ as the cause of abnormal reaction of the patient, or of later complication, without mention of misadventure at the time of the procedure; Y83.2 Surgical operation with anastomosis, bypass or graft as the cause of abnormal reaction of the patient, or of later complication, without mention of misadventure at the time of the procedure; Z99.2 Dependence on renal dialysis; Z85.528 Personal history of other malignant neoplasm of kidney; Z79.01 Long term (current) use of anticoagulants; Z79.02 Long term (current) use of antithrombotics/antiplatelets; Z88.1 Allergy status to other antibiotic agents; Z87.440 Personal history of urinary (tract) infections; Z87.442 Personal history of urinary calculi; Y92.9 Unspecified place or not applicable

== ENCOUNTER 2017-01-29 19:17 | Emergency (ER) | payer MEDICARE, MEDICAID ==
[2017-01-29 19:17] VITALS: BMI 25.0
[2017-01-29] MEDS ORDERED: Oxycodone/Acetaminophen 5/325 mg Tab PO STA ×2 (19:40→20:18)
[2017-01-29] MEDS ORDERED: Oxycodone/Acetaminophen 5/325 mg Tab ONE ×2 (20:01→20:21)
--- NOTE | 2017-01-29 20:21 | ED PDOC ---
HPI: Trauma/Fall - HPI Time Seen by Provider: 01/29/17 19:26 Chief Complaint (Nursing): Trauma Chief Complaint (Provider): Trauma History Per: Patient History/Exam Limitations: no limitations Additional Complaint(s): 51 y/o male, wheelchair bound, presents to the emergency department with a complaint of a right hip and knee pain/bruising after he fell on a curb and landed on the right side. Patient states he was on his way to dialysis when he fell with his wheelchair, not sure if he sustained head injury. Reports after dialysis he went home and noticed bruising to the right knee and hip. Denies any further medical complaints. Past Medical History Reviewed: Historical Data, Nursing Documentation, Vital Signs Vital Signs: Last Vital Signs Temp 98 F 01/29/17 19:20 Pulse 70 01/29/17 19:20 Resp 18 01/29/17 19:20 BP 152/73 H 01/29/17 19:20 Pulse Ox 100 01/29/17 19:20 - Medical History PMH: Anemia, Anxiety, Arthritis, Atrial Fibrillation, Cardia Arrhythmia, Depression, Diabetes (type II), Gastritis, GERD, HTN, Hypercholesterolemia, Osteoporosis, Peripheral Edema, End Stage Renal Disease, Chronic Kidney Disease (stage 5), Sleep Apnea Denies: CHF, Fractures, HIV, Hypothyroidism, Kidney Stones - Surgical History Surgical History: Appendectomy, Endoscopy - Family History Family History: States: Unknown Family Hx, Hypertension - Social History Alcohol: Social Drugs: Other - Home Medications Home Medications: Ambulatory Orders Medication Instructions Recorded Acetaminophen/Oxycodone Hydr 1 tab PO Q6H PRN 05/24/16 [Percocet 10/325 mg Tab] Ammonium Lactate 12% [Lac-Hydrin 1 appl TOP BID 05/24/16 12% Lotion (225 g)] Atorvastatin [Lipitor] 20 mg PO HS 05/24/16 Esomeprazole Magnesium [Nexium] 40 mg PO DAILY 05/24/16 Febuxostat [Uloric] 40 mg PO DAILY 05/24/16 Megestrol Acetate [Megace] 5 ml PO BID 05/24/16 Minoxidil 2.5 mg PO BID 05/24/16 Ubuvu-8-Ojjh Ethyl Esters 1 GM 1 gm PO BID 05/24/16 [Lovaza] Sevelamer Carbonate [Renvela] 2,400 mg PO TID 05/24/16 Vitamin B Complex/Vit C/Folic 1 tab PO DAILY 05/24/16 [Nephro-Garcia] PARoxetine [Paxil] 10 mg PO DAILY 07/19/16 Atropine/Diphenoxylate [Lomotil 2 tab PO BID PRN 12/10/16 0.025-2.5 mg tablet] Amino AC/Protein Hydr/Whey Pro 30 ml PO DAILY 12/24/16 [Liquacel Liquid Protein Packet] Apixaban [Eliquis] 2.5 mg PO BID 12/24/16 Clopidogrel [Plavix] 75 mg PO DAILY 12/24/16 Tamsulosin [Flomax] 1 tab PO DAILY 12/24/16 Verapamil [Calan Tab] 120 mg PO DAILY 12/24/16 fentaNYL 25 mcg/hr [Duragesic 1 ea TD Q72H #2 patch 01/06/17 Patch 25 mcg/hr] - Allergies Allergies/Adverse Reactions: Allergies Allergy/AdvReac Type Severity Reaction Status Date / Time ketorolac [From Toradol] Allergy RASH Verified 12/24/16 15:13 propoxyphene napsylate Allergy RASH Verified 12/24/16 15:13 [From Darvocet-N] vancomycin AdvReac RASH Verified 12/24/16 15:13 Review of Systems ROS Statement: Except As Marked, All Systems Reviewed And Found Negative Musculoskeletal: Positive for: Other (Right knee and hip pain) Physical Exam - Reviewed Nursing Documentation Reviewed: Yes Vital Signs Reviewed: Yes - Physical Exam Appears: Positive for: Non-toxic, No Acute Distress Head Exam: Positive for: ATRAUMATIC, NORMAL INSPECTION (No signs of head trauma) , NORMOCEPHALIC Skin: Positive for: Normal Color, Warm, Dry Eye Exam: Positive for: Normal appearance Neck: Positive for: Normal, Supple Cardiovascular/Chest: Positive for: Regular Rate, Rhythm. Negative for: Murmur Respiratory: Positive for: Normal Breath Sounds. Negative for: Accessory Muscle Use, Respiratory Distress Gastrointestinal/Abdominal: Positive for: Normal Exam, Soft. Negative for: Tenderness Extremity: Positive for: Other (Abrasion to the right knee contusion as well as the right hip. ). Negative for: Pedal Edema Neurologic/Psych: Positive for: Alert, Oriented (x3) - ECG O2 Sat by Pulse Oximetry: 100 (RA) Pulse Ox Interpretation: Normal Medical Decision Making Medical Decision Making: Time: 19:26 Initial impression: Fall with patient on anticoagulant with questionable loss of consciousness. Will perform CT. Initial plan: --Head CT --Knee right x-ray --Hip right x-ray --Percocet 5/325 mg --reevaluation 1030PM: Pt. feeling a lot better. Pt. has hematomas but risk of stopping AC is higher than continuing. Told to call Dr. Altamirano' office tomorrow to ask about AC usage. Advised patient to continue AC's until further eval from Dr. Altamirano. Return precautions given. Patient safe for d/c. Scribe Attestation: Documented by Clara Newman, acting as a scribe for Lloyd Grimm MD. Provider Scribe Attestation: All medical record entries made by the Scribe were at my direction and personally dictated by me. I have reviewed the chart and agree that the record accurately reflects my personal performance of the history, physical exam, medical decision making, and the department course for this patient. I have also personally directed, reviewed, and agree with the discharge instructions and disposition. Disposition - Clinical Impression Clinical Impression: Fall, Contusion - Disposition Referrals: Shaik Candelario MD [Family Provider] - Renaldo Godfrey MD [Staff Provider] - Disposition: Routine/Home Disposition Time: 22:30 Condition: STABLE Instructions: Contusion in Adults (ED) Forms: [employer] (Spanish)
--- NOTE | 2017-01-29 22:08 | CT ---
EXAM: CT Head Without Intravenous Contrast CLINICAL HISTORY: 51 years old, male; Injury or trauma; Fall; Initial encounter; Laceration; Consciousness not specified; Without residual foreign body; Head, generalized; Injury date: Today; Injury details: S/P falling from wheelchair. Pt on hemodialysis since 2010 HTN pvd ckd. Lower ext amputation; Additional info: S/P fall, on blood thinners TECHNIQUE: Axial computed tomography images of the head/brain without intravenous contrast. All CT scans at this facility use one or more dose reduction techniques, viz.: automated exposure control; ma/kV adjustment per patient size (including targeted exams where dose is matched to indication; i.e. head); or iterative reconstruction technique. Coronal and sagittal reformatted images were created and reviewed. COMPARISON: CT - HEAD W/O CONTRAST 09/04/2015 12:26:34 PM FINDINGS: Brain: Mild atrophy. No intracranial hemorrhage. No mass. No edema. Ventricles: No hydrocephalus. Bones/joints: No acute fracture. Soft tissues: Unremarkable. Vasculature: Atherosclerotic disease of intracranial arteries. Sinuses: No acute sinusitis. Mastoid air cells: Minimal fluid within mastoids. Orbits: Unremarkable as visualized. IMPRESSION: 1. No intracranial hemorrhage. 2. Incidental/non-acute findings are described above.
[2017-01-29 22:39] VITALS: BP 137/78; PULSE 81; RESP 16; TEMP 98.7; O2SAT 99
--- NOTE | 2017-01-29 22:42 | RAD ---
HISTORY: s/p fall COMPARISON: No prior FINDINGS: BONES: Normal. No fracture. JOINTS: Normal. No osteoarthritis. SOFT TISSUE: Calcified phleboliths and buttock granulomata. Surgical clips overlie the pelvis. . OTHER FINDINGS: None . IMPRESSION: No fracture.
--- NOTE | 2017-01-29 22:44 | RAD ---
PROCEDURE: Right Knee Radiographs. HISTORY: s/p fall COMPARISON: None. FINDINGS: BONES: Osteopenia. No fracture. JOINTS: Normal. No osteoarthritis. JOINT EFFUSION: None. OTHER FINDINGS: None. IMPRESSION: No fracture.
== END 2017-01-29 22:43 | disposition home or self-care (01) ==
LOC: H.ER 19:17
DX: M25.551 Pain in right hip (principal); S80.01XA Contusion of right knee, initial encounter; S09.90XA Unspecified injury of head, initial encounter; W05.0XXA Fall from non-moving wheelchair, initial encounter; Y92.89 Other specified places as the place of occurrence of the external cause; E11.22 Type 2 diabetes mellitus with diabetic chronic kidney disease; E78.00 Pure hypercholesterolemia, unspecified; F32.9 Major depressive disorder, single episode, unspecified; F41.9 Anxiety disorder, unspecified; I12.0 Hypertensive chronic kidney disease with stage 5 chronic kidney disease or end stage renal disease; I73.9 Peripheral vascular disease, unspecified; K21.9 Gastro-esophageal reflux disease without esophagitis; Z79.01 Long term (current) use of anticoagulants; Z99.2 Dependence on renal dialysis; Z99.3 Dependence on wheelchair
CPT/HCPCS: 70450; 73501; 73562; 96372; 99284; J2270

== ENCOUNTER 2017-05-15 14:54 | Inpatient (IN) | payer MEDICARE, MEDICAID ==
[2017-05-15 14:54] VITALS: BMI 25.0
--- NOTE | 2017-05-15 15:27 | ED PDOC ---
HPI: Chest Pain Time Seen by Provider: 05/15/17 15:02 Chief Complaint (Nursing): Palpitations Chief Complaint (Provider): Palpitations History Per: Patient History/Exam Limitations: no limitations Additional Complaint(s): Akash is a 52 y/o male with a history of AFib, diabetes, and end stage renal disease on dialysis who presents to the ED c/o palpitations today while at dialysis clinic. He was unable to receive dialysis because of his rapid heart rate. Patient denies dizziness or shortness of breath. PMD: Mildred Warren Past Medical History Reviewed: Historical Data, Nursing Documentation, Vital Signs Vital Signs: Last Vital Signs Temp 97.9 F 05/16/17 08:28 Pulse 80 05/16/17 08:28 Resp 18 05/16/17 08:28 BP 154/87 H 05/16/17 08:28 Pulse Ox 97 05/16/17 08:28 - Medical History PMH: Anemia, Anxiety, Arthritis, Atrial Fibrillation, Cardia Arrhythmia, Depression, Diabetes (type II), Gastritis, GERD, HTN, Hypercholesterolemia, Osteoporosis, Peripheral Edema, End Stage Renal Disease, Chronic Kidney Disease , Sleep Apnea Denies: CHF, Fractures, HIV, Hypothyroidism, Kidney Stones - Surgical History Surgical History: Appendectomy, Endoscopy - Family History Family History: States: Unknown Family Hx, Hypertension - Home Medications Home Medications: Ambulatory Orders Medication Instructions Recorded Acetaminophen/Oxycodone Hydr 1 tab PO Q6H PRN 05/24/16 [Percocet 10/325 mg Tab] Atorvastatin [Lipitor] 20 mg PO HS 05/24/16 Esomeprazole Magnesium [Nexium] 40 mg PO DAILY 05/24/16 Febuxostat [Uloric] 40 mg PO DAILY 05/24/16 Megestrol Acetate [Megace] 1 tbs PO DAILY 05/24/16 Minoxidil 2.5 mg PO DAILY 05/24/16 Sevelamer Carbonate [Renvela] 2,400 mg PO TID 05/24/16 PARoxetine [Paxil] 10 mg PO DAILY 07/19/16 Atropine/Diphenoxylate [Lomotil 2 tab PO BID PRN 12/10/16 0.025-2.5 mg tablet] Apixaban [Eliquis] 2.5 mg PO BID 12/24/16 Clopidogrel [Plavix] 75 mg PO DAILY 12/24/16 Tamsulosin [Flomax] 20 mg PO DAILY 12/24/16 Verapamil [Calan Tab] 120 mg PO DAILY 12/24/16 Alprazolam [Xanax] 0.5 mg PO TID PRN 05/15/17 Amino Acids/Protein Hydrolys 2 tbs PO DAILY 05/15/17 [Liquacel 100 Liquid Protein] Folic Acid/Vit B Complex and C 1 tab PO DAILY 05/15/17 [Nephro-Garcia Vitamin B and C Complex] - Allergies Allergies/Adverse Reactions: Allergies Allergy/AdvReac Type Severity Reaction Status Date / Time ketorolac [From Toradol] Allergy RASH Verified 05/15/17 14:59 propoxyphene napsylate Allergy RASH Verified 05/15/17 14:59 [From Darvocet-N] vancomycin AdvReac RASH Verified 05/15/17 14:59 Review of Systems ROS Statement: Except As Marked, All Systems Reviewed And Found Negative Cardiovascular: Positive for: Palpitations Respiratory: Negative for: Shortness of Breath Neurological: Negative for: Dizziness Physical Exam - Reviewed Nursing Documentation Reviewed: Yes Vital Signs Reviewed: Yes - Physical Exam Appears: Positive for: Non-toxic, No Acute Distress Cardiovascular/Chest: Positive for: Irregularly Irregular (120-130 bpm) Respiratory: Positive for: CNT, Normal Breath Sounds Gastrointestinal/Abdominal: Positive for: Normal Exam, Bowel Sounds, Soft. Negative for: Tenderness Extremity: Positive for: Deformity (right lower amputation). Negative for: Swelling Neurologic/Psych: Positive for: Alert, Oriented. Negative for: Motor/Sensory Deficits - Laboratory Results Result Diagrams: 05/16/17 05:02 05/16/17 05:02 - ECG ECG Rhythm: Positive for: Atrial Fibrillation, Nonspecific Changes Interpretation Of Abn EKG: Rapid ventricular response Rate: 125 (120-130 bpm) O2 Sat by Pulse Oximetry: 100 (RA) Pulse Ox Interpretation: Normal Medical Decision Making Medical Decision Making: Time: 15:20 Initial impression: Palpitations Initial Plan: --EKG --CMP --Magnesium --Troponin I --CBC w/ differential --Chest X-Ray --Cardizem 15 mg IVP --Reevaluation Time: 16:50 Chest X-Ray: FINDINGS: LUNGS: No active pulmonary disease. PLEURA: No significant pleural effusion identified, no pneumothorax apparent. CARDIOVASCULAR: Left tunneled central venous dialysis catheter. Right subclavian/ upper extremity vascular stent. OSSEOUS STRUCTURES: No significant abnormalities. VISUALIZED UPPER ABDOMEN: Normal. OTHER FINDINGS: None. IMPRESSION: No active disease. Time: 17:00 Patient is signed out to Dr. Elaine Katz pending labs and reevaluation. Scribe Attestation: Documented by Lionel Rajput, acting as a scribe for Parth Powell MD Provider Scribe Attestation: All medical record entries made by the Scribe were at my direction and personally dictated by me. I have reviewed the chart and agree that the record accurately reflects my personal performance of the history, physical exam, medical decision making, and the department course for this patient. I have also personally directed, reviewed, and agree with the discharge instructions and disposition. Disposition - Clinical Impression Clinical Impression: ESRD (end stage renal disease), Atrial fibrillation with RVR - Patient ED Disposition Is Patient to be Admitted: Transfer of Care - Disposition Disposition: Transfer of Care Disposition Time: 17:00 Condition: FAIR Patient Signed Over To: Elaine Katz (pending labs and reevaluation)
[2017-05-15 16:00] LABS: BASO # 0.1 K/uL (0.0-0.2); BASO % 1.1 % (0.0-2.0); EOS # 0.1 K/uL (0.0-0.7); EOS % 2.6 % (0.0-4.0); HEMOGLOBIN 10.4 g/dL (12.0-18.0); LYMPH # 1.1 K/uL (1.0-4.3); MEAN CELL VOLUME 81.6 fl (80.0-94.0); MEAN CORPUSCULAR HEMOGLOBIN 26.7 pg (27.0-31.0); MEAN CORPUSCULAR HGB CONC 32.8 g/dL (33.0-37.0); MEAN PLATELET VOLUME 8.1 fl (7.2-11.7); MONO # 0.8 K/uL (0.0-0.8); MONO % 14.2 % (0.0-10.0); NEUT # 3.2 K/uL (1.8-7.0); NEUT % 61.1 % (50.0-75.0); RBC 3.88 Mil/uL (4.40-5.90); RED CELL DISTRIBUTION WIDTH 15.2 % (11.5-14.5); WHITE BLOOD COUNT 5.3 K/uL (4.8-10.8)
--- NOTE | 2017-05-15 16:52 | RAD ---
HISTORY: cough COMPARISON: 03/11/2017 FINDINGS: LUNGS: No active pulmonary disease. PLEURA: No significant pleural effusion identified, no pneumothorax apparent. CARDIOVASCULAR: Left tunneled central venous dialysis catheter. Right subclavian/ upper extremity vascular stent. OSSEOUS STRUCTURES: No significant abnormalities. VISUALIZED UPPER ABDOMEN: Normal. OTHER FINDINGS: None. IMPRESSION: No active disease.
[2017-05-15] MEDS ORDERED: Oxycodone/Acetaminophen 5/325 mg Tab PO STA (17:06)
[2017-05-15 17:08] LABS: BLOOD UREA NITROGEN 66 mg/dl (9-20); GFR AFRICAN-AMERICAN 6; GFR NON-AFRICAN AMERICAN 5
[2017-05-15 17:09] LABS: ALB/GLOB RATIO 1.1 (1.0-2.1); ALBUMIN 3.9 g/dL (3.5-5.0); ALT/SGPT 40 U/L (21-72); AST/SGOT 32 U/L (17-59); CALCIUM 9.9 mg/dL (8.4-10.2)
--- NOTE | 2017-05-15 17:47 | ED PDOC ---
- Laboratory Results Result Diagrams: 05/15/17 15:38 05/15/17 16:09 - ECG O2 Sat by Pulse Oximetry: 100 (RA) Pulse Ox Interpretation: Normal Medical Decision Making Medical Decision Making: Time: 17:00 Patient is endorsed to me by Dr. Parth Powell at this time. Pending labs and reevaluation. Patient not yet started on cardizem. Time: 17:25 Labs demonstrate elevated BUN and creatinine. Electrolytes otherwise within normal limits. Patients heart rate sustained in 120s, therefore Cardizem drip ( which was initially held) was initiated. Time: 17:35 Discussed case with patient's gore seamer, Dr. Godfrey, who agrees with plan for observation telemetry for rapid A Fib. Time: 17:[address] Warren, patients PMD, who is unavailable for inpatient until Tuesday. Requests care under either Dr. Godfrey or Dr. Pinto, both of whom admit to hospitalist. Time: 17:[address] Farnsworth, hospitalist on-call. Time: 18:06 Dr. Pinto returned call, and was made aware of patient. For dialysis tomorrow. Scribe Attestation: Documented by Monique Moran, acting as a scribe for Elaine Katz MD Provider Scribe Attestation: All medical record entries made by the Scribe were at my direction and personally dictated by me. I have reviewed the chart and agree that the record accurately reflects my personal performance of the history, physical exam, medical decision making, and the department course for this patient. I have also personally directed, reviewed, and agree with the discharge instructions and disposition. Disposition - Clinical Impression Clinical Impression: ESRD (end stage renal disease), Atrial fibrillation with RVR - POA Present On Arrival: None - Disposition Disposition: Hospitalized as Observation Patient Disposition Time: 17:47 Condition: FAIR
[2017-05-15] MEDS ORDERED: diltiaZEM 100 mg Vial ( ADD-VANTAGE ) IV ONE ×2 (18:10)
[2017-05-15] MEDS ORDERED: Atropine-Diphenoxylate 0.025-2.5 mg Tab PO PRN (18:11)
--- NOTE | 2017-05-15 18:30 | CP.PCM.HP ---
History of Present Illness - History of Present Illness History of Present Illness: CC: Rapid heart rate This is a 52 year old male with multiple medical problems, including Type 2 DM, ESRD with dialysis M-W-F, hyperlipidemia, gout, Restless Legs syndrome for which he takes Percocet, , gastritis, HTN, osteoporosis, sleep apnea, history of paroxysmal atrial fibrillation with history of rapid afib in the past, who presents to the ED this evening after going to his dialysis appointment (he was getting dialysis today as he did not want to go for dialysis on ) . Before dialysis was able to start, they noticed that he had a rapid heart rate in the 120's on the pressfitter and sent him to the ED here. Here in the ED, the patient was found to be tachy in afib in the high 120's. The patient denies any sx other than some palpitations and some intermittent nausea without vomiting. Dr. Godfrey, the patient's twist tester, was consulted and recommended starting Cardizem drip which is to be initiated in the ED. The patient also is for stat dialysis this evening with Dr. Pinto who was also called from the ED. The patient denies cp, sob, weakness, vomiting, diarrhea, recent illnesses. The patient is to be placed on observation on telemetry for further workup and management. Present on Admission - Present on Admission Any Indicators Present on Admission: Yes History of DVT/PE: Yes History of Uncontrolled Diabetes: Yes Review of Systems - Review of Systems Review of Systems: A 12 point review of systems was conducted and is negative other than what was documented in HPI. Past Patient History - Infectious Disease Hx of Infectious Diseases: None - Tetanus Immunizations Tetanus Immunization: Unknown - Past Medical History & Family History Past Medical History?: Yes - Past Social History Smoking Status: Never Smoked - CARDIAC Hx Atrial Fibrillation: Yes Hx Cardia Arrhythmia: Yes Hx Congestive Heart Failure: No Hx Hypercholesterolemia: Yes Hx Hypertension: Yes Hx Peripheral Edema: Yes - PULMONARY Hx Sleep Apnea: Yes - NEUROLOGICAL Hx Neurological Disorder: Yes Other/Comment: Hx Diabetic neuropathy - HEENT Hx HEENT Problems: Yes Hx Cataracts: Yes (Bilateral) Hx Epistaxis: Yes - RENAL Hx Chronic Kidney Disease: Yes Hx Kidney Stones: No - ENDOCRINE/METABOLIC Hx Hypothyroidism: No - HEMATOLOGICAL/ONCOLOGICAL Hx Anemia: Yes Hx Human Immunodeficiency Virus (HIV): No - INTEGUMENTARY Hx Dermatological Problems: Yes Hx Cellulitis: Yes Other/Comment: Pt. had all toenails 10 toenails removed at the age of 14 due to pain - MUSCULOSKELETAL/RHEUMATOLOGICAL Hx Arthritis: Yes Hx Fractures: No Hx Osteoporosis: Yes - GASTROINTESTINAL Hx Gastritis: Yes - GENITOURINARY/GYNECOLOGICAL Hx Genitourinary Disorders: Yes Hx Prostate Problems: Yes Hx Urinary Tract Infection: Yes Other/Comment: Anuric due to kidney condition, confirmed by mother patient has no kidneys - PSYCHIATRIC Hx Anxiety: Yes Hx Depression: Yes - SURGICAL HISTORY Hx Appendectomy: Yes - ANESTHESIA Hx Anesthesia: Yes Hx Anesthesia Reactions: Yes (AWAKE DURING THE SURGERY) Hx Malignant Hyperthermia: No Meds Allergies/Adverse Reactions: Allergies Allergy/AdvReac Type Severity Reaction Status Date / Time ketorolac [From Toradol] Allergy RASH Verified 05/15/17 14:59 propoxyphene napsylate Allergy RASH Verified 05/15/17 14:59 [From Darvocet-N] vancomycin AdvReac RASH Verified 05/15/17 14:59 Physical Exam - Additional Findings Additional findings: Physical exam: Constitutional- cooperative, awake, alert Head- NCAT, PERRL Eye- PERRL, EOMI ENT- normal exam, MMM. Neck- normal inspection, supple, no JVD Respiratory- CTAB, no wheezes rales rhonchi Cardiovascular- Rapid, irregular rate and rhythm, +S1, +S2 no MRG GI/Abdominal- normal bowel sounds, soft, no mass, no hsm Skin- warm, dry. + Left arm graft Extremities Exam- + s/p right partial foot amputation. otherwise normal capillary refill, normal inspection Neurological Exam- alert, awake, oriented Psych- normal mood, normal affect Results - Vital Signs Recent Vital Signs: Last Vital Signs Temp 98.2 F 05/15/17 15:00 Pulse 122 H 05/15/17 18:22 Resp 12 05/15/17 18:22 BP 131/90 05/15/17 18:22 Pulse Ox 98 05/15/17 18:22 - Labs Result Diagrams: 05/15/17 15:38 05/15/17 16:09 Labs: Laboratory Results - last 24 hr 05/15/17 05/15/17 15:38 16:09 WBC 5.3 RBC 3.88 L Hgb 10.4 L Hct 31.7 L MCV 81.6 MCH 26.7 L MCHC 32.8 L RDW 15.2 H Plt Count 235 MPV 8.1 Neut % (Auto) 61.1 Lymph % (Auto) 21.0 [place] % (Auto) 14.2 H Eos % (Auto) 2.6 Baso % (Auto) 1.1 Neut # 3.2 Lymph # 1.1 [place] # 0.8 Eos # 0.1 Baso # 0.1 Sodium 136 Potassium 4.0 Chloride 97 L Carbon Dioxide 25 Anion Gap 18 BUN 66 H Creatinine 11.3 H* Est GFR ( Amer) 6 Est GFR (Non-Af Amer) 5 Random Glucose 175 H Calcium 9.9 Magnesium 2.0 Total Bilirubin 0.5 AST 32 ALT 40 Alkaline Phosphatase 216 H Troponin I < 0.0120 Total Protein 7.3 Albumin 3.9 Globulin 3.5 Albumin/Globulin Ratio 1.1 Assessment & Plan - Assessment and Plan (Free Text) Plan: ASSESSMENT/PLAN 1) Atrial fibrillation with rapid ventricular response in rate 120's - Place on tele/obs - consultation with Dr. Godfrye - Start Cardizem at 5 mg/hr, titrate as needed, hopefully will resolve his rapid afib - Continue Eliquis for thromboembolism prophylaxis - K and Mg WNL - Troponin undetectable - Hold Verapamil as pt is getting Cardizem 2) ESRD, w/ stat dialysis planned - Consultation with Dr. Pinto for dialysis tonight - Continue Uloric, Sevelamer 3) Hypertension in setting of ckd - Cardizem as above - Minoxidil 2.5 mg po daily 4) Restless Legs Syndrome - Continue Percocet which he takes at home - Patient to have appt outpatient with Neurologist on Tuesday for further workup 5) Anxiety/Depression - Cont Paxil 6) Hypercholesterolemia - Continue Lipitor 7) Type 2 DM - Regular insulin sliding scale for now 8) DVT prophylaxis (hx of DVT as per pt) - Eliquis
[2017-05-15] MEDS: Insulin Regular 100 units/ml SC SCH (22:10)
[2017-05-16] MEDS: Oxycodone/Acetaminophen 5/325 mg Tab PO PRN (03:15)
[2017-05-16] MEDS ORDERED: Oxycodone/Acetaminophen 5/325 mg Tab PO STA (05:30)
[2017-05-16 05:48] LABS: HEMOGLOBIN 10.5 g/dL (12.0-18.0); MEAN CORPUSCULAR HEMOGLOBIN 27.1 pg (27.0-31.0); MEAN CORPUSCULAR HGB CONC 33.5 g/dL (33.0-37.0); RBC 3.86 Mil/uL (4.40-5.90); RED CELL DISTRIBUTION WIDTH 14.9 % (11.5-14.5); WHITE BLOOD COUNT 4.2 K/uL (4.8-10.8)
[2017-05-16] MEDS: Insulin Regular 100 units/ml SC SCH ×4 (08:45→23:58)
[2017-05-16] MEDS: Pantoprazole 40 mg EC Tab PO SCH (08:54)
[2017-05-16] MEDS: Multivitamin Vitamin B Complex (Nephro-Vite) Tab PO SCH (08:54)
[2017-05-16] MEDS ORDERED: PROTEIN HYDROLYS PO SCH (09:00)
[2017-05-16] MEDS ORDERED: AMINO ACIDS PO SCH (09:00)
[2017-05-16] MEDS ORDERED: [UNRECOGNIZED DRUG - OTHER] PO SCH (09:00)
[2017-05-16] MEDS: Megestrol Acetate 40 mg/ml Cup PO SCH (09:01)
--- NOTE | 2017-05-16 10:08 | CARD ---
APPROVED REPORT EKG Measurement Heart [id number] <Conclusion> Atrial fibrillation with rapid ventricular response Left axis deviation Right bundle branch block Abnormal ECG
[2017-05-16] MEDS ORDERED: diltiaZEM 100 mg Vial ( ADD-VANTAGE ) IV ONE (12:49)
--- NOTE | 2017-05-16 13:07 | CP.PCM.CON ---
History of Present Illness - History of Present Illness History of Present Illness: THE PATIENT IS A 52 YEAR OLD MALE WHO HAS A HISTORY OF HYPERTENSION, CRF ON HD, DM, HYPERLIPIDEMIA, PAD, RECUREENT ATRIAL FIBRILLATION AND ALSO CLASSICAL SVT. HE PRESENTLY STATES THAT HE SHOWED UP TO THE DIALYSIS CENTER AND THAT THEY NOTICED THAT HIS HEART RATE WAS ELEVATED AND THEY DECIDED AGAINST PERFORMING DIALYSIS AND HE WAS INSTEAD SENT TO THE ER WHERE HE WAS FOUND TO BE IN ATRIAL FIBRILLATION AND AN IV CARDIZEM DRIP WAS STARTED AND HE WAS ADMITTED TO N ON TELEMETRY. CARDIOLOGY WAS ASKED TO SEE HIM. HE DENIES CHEST PAIN, SOB, NAUSEA OR VOMITING AND HE ALSO STATES THAT HE WAS NOT ABLE TO SENSE HIS HEART BEATING FAST YESTERDAY. Past Patient History - Infectious Disease Hx of Infectious Diseases: None - Tetanus Immunizations Tetanus Immunization: Unknown - Past Medical History & Family History Past Medical History?: Yes - Past Social History Smoking Status: Never Smoked - CARDIAC Hx Atrial Fibrillation: Yes Hx Cardia Arrhythmia: Yes Hx Congestive Heart Failure: No Hx Hypercholesterolemia: Yes Hx Hypertension: Yes Hx Peripheral Edema: Yes - PULMONARY Hx Sleep Apnea: Yes - NEUROLOGICAL Hx Neurological Disorder: Yes Other/Comment: Diabetic neuropathy - HEENT Hx HEENT Problems: Yes Hx Cataracts: Yes Hx Epistaxis: Yes Other/Comment: eye glasses - RENAL Hx Chronic Kidney Disease: Yes Hx Kidney Stones: No - ENDOCRINE/METABOLIC Hx Hypothyroidism: No - HEMATOLOGICAL/ONCOLOGICAL Hx Anemia: Yes Hx Human Immunodeficiency Virus (HIV): No - INTEGUMENTARY Hx Dermatological Problems: Yes Hx Cellulitis: Yes - MUSCULOSKELETAL/RHEUMATOLOGICAL Hx Arthritis: Yes Hx Fractures: No Hx Osteoporosis: Yes - GASTROINTESTINAL Hx Gastritis: Yes - GENITOURINARY/GYNECOLOGICAL Hx Genitourinary Disorders: Yes Hx Prostate Problems: Yes Hx Urinary Tract Infection: Yes - PSYCHIATRIC Hx Anxiety: Yes Hx Depression: Yes - SURGICAL HISTORY Hx Appendectomy: Yes - ANESTHESIA Hx Anesthesia: Yes Hx Anesthesia Reactions: Yes (AWAKE DURING THE SURGERY) Hx Malignant Hyperthermia: No Meds Allergies/Adverse Reactions: Allergies Allergy/AdvReac Type Severity Reaction Status Date / Time ketorolac [From Toradol] Allergy RASH Verified 05/15/17 14:59 propoxyphene napsylate Allergy RASH Verified 05/15/17 14:59 [From Darvocet-N] vancomycin AdvReac RASH Verified 05/15/17 14:59 - Medications Medications: Current Medications Alprazolam (Xanax) 0.5 mg PO TID PRN PRN Reason: Anxiety Apixaban (Eliquis) 2.5 mg PO BID [facility] PRN Reason: Protocol Last Admin: 05/16/17 11:10 Dose: 2.5 mg Atorvastatin Calcium (Lipitor) 20 mg PO HS [facility] Last Admin: 05/15/17 22:11 Dose: 20 mg Clopidogrel Bisulfate (Plavix) 75 mg PO DAILY [facility] Last Admin: 05/16/17 08:55 Dose: 75 mg Diphenoxylate HCl/Atropine (Lomotil 0.025-2.5 Mg Tablet) 2 tab PO BID PRN PRN Reason: Diarrhea Home Med (Amino Acids/Protein Hydrolys [Liquacel 100 Liquid Protein]) 2 tbs PO DAILY [facility] Home Med (Febuxostat [Uloric]) 40 mg PO DAILY [facility] Diltiazem HCl 100 mg/ Sodium (Chloride) 100 mls @ 5 mls/hr IV .Q20H ONE; 5 MG/ HR PRN Reason: Protocol Stop: 05/16/17 13:24 Last Admin: 05/15/17 18:12 Dose: 5 mls/hr Insulin Human Regular (Humulin R) 0 units SC ACCU-CHECK [facility] PRN Reason: Protocol Last Admin: 05/16/17 08:45 Dose: Not Given Megestrol Acetate (Megace) 600 mg PO DAILY [facility] Last Admin: 05/16/17 09:01 Dose: Not Given Minoxidil (Minoxidil) 2.5 mg PO DAILY [facility] Ondansetron HCl (Zofran Inj) 4 mg IVP Q6 PRN PRN Reason: Nausea/Vomiting Oxycodone/Acetaminophen (Percocet 5/325 Mg Tab) 2 tab PO Q6H PRN PRN Reason: Pain, severe (8-10) Stop: 05/18/17 18:07 Last Admin: 05/16/17 03:15 Dose: 2 tab Pantoprazole Sodium (Protonix Ec Tab) 40 mg PO DAILY [facility] Last Admin: 05/16/17 08:54 Dose: 40 mg Paroxetine HCl (Paxil) 10 mg PO DAILY [facility] Last Admin: 05/16/17 08:58 Dose: 10 mg Sevelamer HCl (Renagel) 2,400 mg PO TID [facility] Last Admin: 05/16/17 12:37 Dose: 2,400 mg Tamsulosin HCl (Flomax) 0.4 mg PO DAILY [facility] Last Admin: 05/16/17 12:35 Dose: 0.4 mg Verapamil HCl (Calan Sr Tab) 120 mg PO DAILY [facility] Vitamin B Complex/Vit C/Folic Acid (Nephro-Garcia) 1 tab PO DAILY [facility] Last Admin: 05/16/17 08:54 Dose: 1 tab Physical Exam - Respiratory Exam Respiratory Exam: Clear to Auscultation Bilateral - Cardiovascular Exam Cardiovascular Exam: REGULAR RHYTHM, +S1, +S2 - Extremities Exam Additional comments: NO LE EDEMA - Additional Findings Additional findings: EKG 05/15/17 WITH ATRIAL FIBRILLATION WITH A RBBB PATTERN, R 107 BASEBALL SEWER HAND NOW SINUS WITH FIRST DEGREE AV BLOCK AND RBBB, RATEIN THE 80'S TROPONIN NORMAL K+ 4.4 Results - Vital Signs Recent Vital Signs: Last Vital Signs Temp 98.3 F 05/16/17 12:17 Pulse 90 05/16/17 12:17 Resp 18 05/16/17 12:17 BP 131/83 05/16/17 12:17 Pulse Ox 95 05/16/17 12:17 - Labs Result Diagrams: 05/16/17 05:02 05/16/17 05:02 Labs: Laboratory Results - last 24 hr 05/15/17 05/15/17 05/15/17 15:38 16:09 21:33 WBC 5.3 RBC 3.88 L Hgb 10.4 L Hct 31.7 L MCV 81.6 MCH 26.7 L MCHC 32.8 L RDW 15.2 H Plt Count 235 MPV 8.1 Neut % (Auto) 61.1 Lymph % (Auto) 21.0 [place] % (Auto) 14.2 H Eos % (Auto) 2.6 Baso % (Auto) 1.1 Neut # 3.2 Lymph # 1.1 [place] # 0.8 Eos # 0.1 Baso # 0.1 Sodium 136 Potassium 4.0 Chloride 97 L Carbon Dioxide 25 Anion Gap 18 BUN 66 H Creatinine 11.3 H* Est GFR ( Amer) 6 Est GFR (Non-Af Amer) 5 POC Glucose (mg/dL) 183 H Random Glucose 175 H Calcium 9.9 Magnesium 2.0 Total Bilirubin 0.5 AST 32 ALT 40 Alkaline Phosphatase 216 H Troponin I < 0.0120 Total Protein 7.3 Albumin 3.9 Globulin 3.5 Albumin/Globulin Ratio 1.1 05/16/17 05/16/17 05/16/17 05:02 05:02 05:30 WBC 4.2 L RBC 3.86 L Hgb 10.5 L Hct 31.3 L MCV 81.0 MCH 27.1 MCHC 33.5 RDW 14.9 H Plt Count 227 MPV Neut % (Auto) Lymph % (Auto) [place] % (Auto) Eos % (Auto) Baso % (Auto) Neut # Lymph # [place] # Eos # Baso # Sodium 140 Potassium 4.4 Chloride 98 Carbon Dioxide 25 Anion Gap 21 H BUN 73 H Creatinine 12.7 H* Est GFR ( Amer) 5 Est GFR (Non-Af Amer) 4 POC Glucose (mg/dL) 141 H Random Glucose 136 H Calcium 10.0 Magnesium Total Bilirubin AST ALT Alkaline Phosphatase Troponin I Total Protein Albumin Globulin Albumin/Globulin Ratio 05/16/17 11:17 WBC RBC Hgb Hct MCV MCH MCHC RDW Plt Count MPV Neut % (Auto) Lymph % (Auto) [place] % (Auto) Eos % (Auto) Baso % (Auto) Neut # Lymph # [place] # Eos # Baso # Sodium Potassium Chloride Carbon Dioxide Anion Gap BUN Creatinine Est GFR ( Amer) Est GFR (Non-Af Amer) POC Glucose (mg/dL) 197 H Random Glucose Calcium Magnesium Total Bilirubin AST ALT Alkaline Phosphatase Troponin I Total Protein Albumin Globulin Albumin/Globulin Ratio Assessment & Plan - Assessment and Plan (Free Text) Assessment: RECURRENT ATRIAL FIBRILLATION, NOW BACK IN SINUS RHYTHM ON IV CARDIZEM HYPERTENSION HYPERLIPIDEMIA DM CRF ON HD PAD Plan: THE PATIENT WAS ADMITTED TO 4N ON TELEMETRY WILL RESUME ORAL VERAPAMIL AND STOP IV CARDIZEM CONTINUE ATORVASTATIN, CLOPIDOGRAL AND ELIQUIS WOULD RECOMMEND WATCHING PATIENT'S RHYTHM OFF IV CARDIZEM AND ON ORAL VERAPAMIL ON TELEMETRY UNTIL THE AM AND THEN DISCHARGE IF HE REMAINS IN SINUS RHYTHM
--- NOTE | 2017-05-16 13:28 | CP.PCM.PN ---
Subjective - Date & Time of Evaluation Date of Evaluation: 05/16/17 Time of Evaluation: 11:00 - Subjective Subjective: Patient seen and examined at bedside. Overnight required additional pain medication due to leg pain from RLS. Responding well to Cardizem; heart rate now in the 80's. No other overnight events reported by nursing staff. For dialysis this afternoon. Denies chest pain or sob. Objective - Vital Signs/Intake and Output Vital Signs (last 24 hours): Temp Pulse Resp BP Pulse Ox 98.3 F 90 18 131/83 95 05/16/17 12:17 05/16/17 12:17 05/16/17 12:17 05/16/17 12:17 05/16/17 12:17 Intake and Output: Physical exam: Constitutional- cooperative, awake, alert Head- NCAT, PERRL Eye- PERRL, EOMI ENT- normal exam, MMM. Neck- normal inspection, supple, no JVD Respiratory- CTAB, no wheezes rales rhonchi Cardiovascular- Rapid, irregular rate and rhythm, +S1, +S2 no MRG GI/Abdominal- normal bowel sounds, soft, no mass, no hsm Skin- warm, dry. + Left arm graft Extremities Exam- + s/p right partial foot amputation. otherwise normal capillary refill, normal inspection Neurological Exam- alert, awake, oriented Psych- normal mood, normal affect - Medications Medications: Current Medications Alprazolam (Xanax) 0.5 mg PO TID PRN PRN Reason: Anxiety Apixaban (Eliquis) 2.5 mg PO BID [facility] PRN Reason: Protocol Last Admin: 05/16/17 11:10 Dose: 2.5 mg Atorvastatin Calcium (Lipitor) 20 mg PO [facility] Last Admin: 05/15/17 22:11 Dose: 20 mg Clopidogrel Bisulfate (Plavix) 75 mg PO DAILY [facility] Last Admin: 05/16/17 08:55 Dose: 75 mg Diphenoxylate HCl/Atropine (Lomotil 0.025-2.5 Mg Tablet) 2 tab PO BID PRN PRN Reason: Diarrhea Home Med (Amino Acids/Protein Hydrolys [Liquacel 100 Liquid Protein]) 2 tbs PO DAILY [facility] Home Med (Febuxostat [Uloric]) 40 mg PO DAILY [facility] Insulin Human Regular (Humulin R) 0 units SC ACCU-CHECK [facility] PRN Reason: Protocol Last Admin: 05/16/17 08:45 Dose: Not Given Megestrol Acetate (Megace) 600 mg PO DAILY [facility] Last Admin: 05/16/17 09:01 Dose: Not Given Minoxidil (Minoxidil) 2.5 mg PO DAILY [facility] Ondansetron HCl (Zofran Inj) 4 mg IVP Q6 PRN PRN Reason: Nausea/Vomiting Oxycodone/Acetaminophen (Percocet 5/325 Mg Tab) 2 tab PO Q6H PRN PRN Reason: Pain, severe (8-10) Stop: 05/18/17 18:07 Last Admin: 05/16/17 03:15 Dose: 2 tab Pantoprazole Sodium (Protonix Ec Tab) 40 mg PO DAILY [facility] Last Admin: 05/16/17 08:54 Dose: 40 mg Paroxetine HCl (Paxil) 10 mg PO DAILY [facility] Last Admin: 05/16/17 08:58 Dose: 10 mg Sevelamer HCl (Renagel) 2,400 mg PO TID [facility] Last Admin: 05/16/17 12:37 Dose: 2,400 mg Tamsulosin HCl (Flomax) 0.4 mg PO DAILY [facility] Last Admin: 05/16/17 12:35 Dose: 0.4 mg Verapamil HCl (Calan Sr Tab) 120 mg PO DAILY [facility] Vitamin B Complex/Vit C/Folic Acid (Nephro-Garcia) 1 tab PO DAILY [facility] Last Admin: 05/16/17 08:54 Dose: 1 tab - Labs Labs: 05/16/17 05:02 05/16/17 05:02 Assessment and Plan - Assessment and Plan (Free Text) Plan: ASSESSMENT/PLAN 1) Atrial fibrillation with rapid ventricular response in rate 120's, now resolved - Converted to inpatient tele admission - consultation with Dr. Godfrey- recommends one more night after cardizem drip stopped now and restarted on Verapamil (given 100 mg po today) - Continue Eliquis for thromboembolism prophylaxis - K and Mg WNL - Troponin undetectable 2) ESRD, w/ dialysis today - Consultation with Dr. Pinto for dialysis (was postponed until today) - Continue Uloric, Sevelamer 3) Hypertension in setting of ckd - Restart Verapamil - Minoxidil 2.5 mg po daily - Dr. Godfrey on consultation 4) Restless Legs Syndrome - Continue Percocet which he takes at home - Patient to have appt outpatient with Neurologist on Tuesday for further workup 5) Anxiety/Depression - Cont Paxil 6) Hypercholesterolemia - Continue Lipitor 7) Type 2 DM - Regular insulin sliding scale while inpt. 8) DVT prophylaxis (hx of DVT as per pt) - Eliquis Disposition: likely for discharge 05/17/2017 if HR remains stable on Verapamil. Discussed with Dr. Godfrey.
[2017-05-16] MEDS: Verapamil 120 mg ER Tab PO SCH (16:33)
--- NOTE | 2017-05-16 20:19 | CP.PCM.CON ---
History of Present Illness - History of Present Illness History of Present Illness: REASONS FOR CONSULT : ESRD ON HD M W F ANEMIA OF CKD S/P RENAL THX X 2 .. BACK ON HD PT IS WELL KNOWN TO ME FOR THE LAST 15 YEARS ..MMP WITH FREQEUNT ADMISSIONS WENT TO HIS REGULAR SCHEDULED HD YESTERDAY .. WAS FOUND WITH LOW BP AND RHB 130 BPM This is a 52 year old male with multiple medical problems, including Type 2 DM, ESRD with dialysis M-W-, hyperlipidemia, gout, Restless Legs syndrome for which he takes Percocet, , gastritis, HTN, osteoporosis, sleep apnea, history of paroxysmal atrial fibrillation with history of rapid afib in the past, who presents to the ED this evening after going to his dialysis appointment (he was getting dialysis today as he did not want to go for dialysis on [place] ) . Before dialysis was able to start, they noticed that he had a rapid heart rate in the 120's on the compliance monitor and sent him to the ED here. Here in the ED, the patient was found to be tachy in afib in the high 120's. The patient denies any sx other than some palpitations and some intermittent nausea without vomiting. Dr. Godfrey, the patient's psychiatric registered nurse, was consulted and recommended starting Cardizem drip which is to be initiated in the ED. The patient also is for stat dialysis this evening with Dr. Pinto who was also called from the ED. The patient denies cp, sob, weakness, vomiting, diarrhea, recent illnesses. The patient is to be placed on observation on telemetry for further workup and management. Present on Admission - Present on Admission Any Indicators Present on Admission: Yes History of DVT/PE: Yes History of Uncontrolled Diabetes: Yes Review of Systems - Review of Systems Review of Systems: A 12 point review of systems was conducted and is negative other than what was documented in HPI. Past Patient History Past Patient History - Infectious Disease Hx of Infectious Diseases: None - Tetanus Immunizations Tetanus Immunization: Unknown - Past Medical History & Family History Past Medical History?: Yes - Past Social History Smoking Status: Never Smoked - CARDIAC Hx Atrial Fibrillation: Yes Hx Cardia Arrhythmia: Yes Hx Congestive Heart Failure: No Hx Hypercholesterolemia: Yes Hx Hypertension: Yes Hx Peripheral Edema: Yes - PULMONARY Hx Sleep Apnea: Yes - NEUROLOGICAL Hx Neurological Disorder: Yes Other/Comment: Diabetic neuropathy - HEENT Hx HEENT Problems: Yes Hx Cataracts: Yes Hx Epistaxis: Yes Other/Comment: eye glasses - RENAL Hx Chronic Kidney Disease: Yes Hx Kidney Stones: No - ENDOCRINE/METABOLIC Hx Hypothyroidism: No - HEMATOLOGICAL/ONCOLOGICAL Hx Anemia: Yes Hx Human Immunodeficiency Virus (HIV): No - INTEGUMENTARY Hx Dermatological Problems: Yes Hx Cellulitis: Yes - MUSCULOSKELETAL/RHEUMATOLOGICAL Hx Arthritis: Yes Hx Fractures: No Hx Osteoporosis: Yes - GASTROINTESTINAL Hx Gastritis: Yes - GENITOURINARY/GYNECOLOGICAL Hx Genitourinary Disorders: Yes Hx Prostate Problems: Yes Hx Urinary Tract Infection: Yes - PSYCHIATRIC Hx Anxiety: Yes Hx Depression: Yes - SURGICAL HISTORY Hx Appendectomy: Yes - ANESTHESIA Hx Anesthesia: Yes Hx Anesthesia Reactions: Yes (AWAKE DURING THE SURGERY) Hx Malignant Hyperthermia: No Meds Allergies/Adverse Reactions: Allergies Allergy/AdvReac Type Severity Reaction Status Date / Time ketorolac [From Toradol] Allergy RASH Verified 05/15/17 14:59 propoxyphene napsylate Allergy RASH Verified 05/15/17 14:59 [From Darvocet-N] vancomycin AdvReac RASH Verified 05/15/17 14:59 - Medications Medications: Current Medications Alprazolam (Xanax) 0.5 mg PO TID PRN PRN Reason: Anxiety Apixaban (Eliquis) 2.5 mg PO BID [facility] PRN Reason: Protocol Last Admin: 05/16/17 19:05 Dose: 2.5 mg Atorvastatin Calcium (Lipitor) 20 mg PO [facility] Last Admin: 05/15/17 22:11 Dose: 20 mg Clopidogrel Bisulfate (Plavix) 75 mg PO DAILY [facility] Last Admin: 05/16/17 08:55 Dose: 75 mg Diphenoxylate HCl/Atropine (Lomotil 0.025-2.5 Mg Tablet) 2 tab PO BID PRN PRN Reason: Diarrhea Home Med (Amino Acids/Protein Hydrolys [Liquacel 100 Liquid Protein]) 2 tbs PO DAILY [facility] Home Med (Febuxostat [Uloric]) 40 mg PO DAILY [facility] Insulin Human Regular (Humulin R) 0 units SC ACCU-CHECK [facility] PRN Reason: Protocol Last Admin: 05/16/17 16:32 Dose: Not Given Megestrol Acetate (Megace) 600 mg PO DAILY [facility] Last Admin: 05/16/17 09:01 Dose: Not Given Minoxidil (Minoxidil) 2.5 mg PO DAILY [facility] Last Admin: 05/16/17 19:07 Dose: 2.5 mg Ondansetron HCl (Zofran Inj) 4 mg IVP Q6 PRN PRN Reason: Nausea/Vomiting Oxycodone/Acetaminophen (Percocet 5/325 Mg Tab) 2 tab PO Q6H PRN PRN Reason: Pain, severe (8-10) Stop: 05/18/17 18:07 Last Admin: 05/16/17 03:15 Dose: 2 tab Pantoprazole Sodium (Protonix Ec Tab) 40 mg PO DAILY [facility] Last Admin: 05/16/17 08:54 Dose: 40 mg Paroxetine HCl (Paxil) 10 mg PO DAILY [facility] Last Admin: 05/16/17 08:58 Dose: 10 mg Sevelamer HCl (Renagel) 2,400 mg PO TID [facility] Last Admin: 05/16/17 17:06 Dose: 2,400 mg Tamsulosin HCl (Flomax) 0.4 mg PO DAILY [facility] Last Admin: 05/16/17 12:35 Dose: 0.4 mg Verapamil HCl (Calan Sr Tab) 120 mg PO DAILY [facility] Last Admin: 05/16/17 16:33 Dose: 120 mg Vitamin B Complex/Vit C/Folic Acid (Nephro-Garcia) 1 tab PO DAILY [facility] Last Admin: 05/16/17 08:54 Dose: 1 tab Results - Vital Signs Recent Vital Signs: Last Vital Signs Temp 98.0 F 05/16/17 19:53 Pulse 109 H 05/16/17 19:53 Resp 18 05/16/17 19:53 BP 146/104 H 05/16/17 19:53 Pulse Ox 97 05/16/17 19:53 - Labs Result Diagrams: 05/16/17 05:02 05/16/17 05:02 Labs: Laboratory Results - last 24 hr 05/15/17 05/16/17 05/16/17 21:33 05:02 05:02 WBC 4.2 L RBC 3.86 L Hgb 10.5 L Hct 31.3 L MCV 81.0 MCH 27.1 MCHC 33.5 RDW 14.9 H Plt Count 227 Sodium 140 Potassium 4.4 Chloride 98 Carbon Dioxide 25 Anion Gap 21 H BUN 73 H Creatinine 12.7 H* Est GFR ( Amer) 5 Est GFR (Non-Af Amer) 4 POC Glucose (mg/dL) 183 H Random Glucose 136 H Calcium 10.0 05/16/17 05/16/17 05/16/17 05:30 11:17 15:48 WBC RBC Hgb Hct MCV MCH MCHC RDW Plt Count Sodium Potassium Chloride Carbon Dioxide Anion Gap BUN Creatinine Est GFR ( Amer) Est GFR (Non-Af Amer) POC Glucose (mg/dL) 141 H 197 H 138 H Random Glucose Calcium Assessment & Plan - Assessment and Plan (Free Text) Assessment: ESRD ON HD .. RECIEVED HIS HD TODAY ANEMIA OF CKD .. H/H STABLE A FIB WITH RVR MMP P : C/O HD ON C/O PRESENT MEDS CHECK LYTES CARDIO DR MONK - Date & Time Date: 05/16/17 Time: 15:00
[2017-05-17] MEDS: Oxycodone/Acetaminophen 5/325 mg Tab PO PRN ×2 (02:23→13:38)
[2017-05-17] MEDS: Insulin Regular 100 units/ml SC SCH ×4 (06:23→22:00)
--- NOTE | 2017-05-17 08:46 | CP.PCM.PN ---
Subjective - Date & Time of Evaluation Date of Evaluation: 05/17/17 Time of Evaluation: 08:30 - Subjective Subjective: NO CHEST PAIN, PALPITATIONS OR SOB Objective - Vital Signs/Intake and Output Vital Signs (last 24 hours): Temp Pulse Resp BP Pulse Ox 98.3 F 95 H 18 141/80 97 05/17/17 07:59 05/17/17 07:59 05/17/17 07:59 05/17/17 07:59 05/17/17 07:59 - Medications Medications: Current Medications Alprazolam (Xanax) 0.5 mg PO TID PRN PRN Reason: Anxiety Apixaban (Eliquis) 2.5 mg PO BID [facility] PRN Reason: Protocol Last Admin: 05/16/17 19:05 Dose: 2.5 mg Atorvastatin Calcium (Lipitor) 20 mg PO HS [facility] Last Admin: 05/16/17 21:19 Dose: 20 mg Clopidogrel Bisulfate (Plavix) 75 mg PO DAILY [facility] Last Admin: 05/16/17 08:55 Dose: 75 mg Diphenoxylate HCl/Atropine (Lomotil 0.025-2.5 Mg Tablet) 2 tab PO BID PRN PRN Reason: Diarrhea Home Med (Amino Acids/Protein Hydrolys [Liquacel 100 Liquid Protein]) 2 tbs PO DAILY [facility] Home Med (Febuxostat [Uloric]) 40 mg PO DAILY [facility] Insulin Human Regular (Humulin R) 0 units [place] ACCU-CHECK [facility] PRN Reason: Protocol Last Admin: 05/17/17 06:23 Dose: Not Given Megestrol Acetate (Megace) 600 mg PO DAILY [facility] Last Admin: 05/16/17 09:01 Dose: Not Given Minoxidil (Minoxidil) 2.5 mg PO DAILY [facility] Last Admin: 05/16/17 19:07 Dose: 2.5 mg Ondansetron HCl (Zofran Inj) 4 mg IVP Q6 PRN PRN Reason: Nausea/Vomiting Last Admin: 05/17/17 00:57 Dose: 4 mg Oxycodone/Acetaminophen (Percocet 5/325 Mg Tab) 2 tab PO Q6H PRN PRN Reason: Pain, severe (8-10) Stop: 05/18/17 18:07 Last Admin: 05/17/17 02:23 Dose: 2 tab Pantoprazole Sodium (Protonix Ec Tab) 40 mg PO DAILY [facility] Last Admin: 05/16/17 08:54 Dose: 40 mg Paroxetine HCl (Paxil) 10 mg PO DAILY [facility] Last Admin: 05/16/17 08:58 Dose: 10 mg Sevelamer HCl (Renagel) 2,400 mg PO TID [facility] Last Admin: 05/16/17 17:06 Dose: 2,400 mg Tamsulosin HCl (Flomax) 0.4 mg PO DAILY [facility] Last Admin: 05/16/17 12:35 Dose: 0.4 mg Verapamil HCl (Calan Sr Tab) 120 mg PO DAILY [facility] Last Admin: 05/16/17 16:33 Dose: 120 mg Vitamin B Complex/Vit C/Folic Acid (Nephro-Garcia) 1 tab PO DAILY [facility] Last Admin: 05/16/17 08:54 Dose: 1 tab - Labs Labs: 05/16/17 05:02 05/16/17 05:02 - Respiratory Exam Respiratory Exam: Clear to Ausculation Bilateral - Cardiovascular Exam Cardiovascular Exam: REGULAR RHYTHM, +S1, +S2 - Back Exam Additional comments: NO LE EDEMA - Additional Findings Additional findings: [employer]LOAD[employer]MENT TENDER SHOWS NSR WITH OCCASIONAL PACS Assessment and Plan - Assessment and Plan (Free Text) Assessment: S/P ATRIAL FIBRILLATION-NOW IN SINUS RHYTHM HYPERTENSION HYPERLIPIDEMIA DM CKD ON HD Plan: CONTINUE VERAPAMIL, CLOPIDOGREL, ELIQUIS AND ATORVASTATIN CONSIDER DIGITALIZATION WITH MAINTENANCE RENAL DOSE DIGOXIN TO TRY TO DECREASE CHANCES OF REPEAT ATRIAL FIBRILLATION IF OK WITH DR HARRIS
[2017-05-17] MEDS: Verapamil 120 mg ER Tab PO SCH (08:51)
[2017-05-17] MEDS: Multivitamin Vitamin B Complex (Nephro-Vite) Tab PO SCH (08:54)
[2017-05-17] MEDS: Megestrol Acetate 40 mg/ml Cup PO SCH (08:58)
[2017-05-17] MEDS ORDERED: CORTISPORIN OU SCH ×2 (09:00→20:30)
[2017-05-17] MEDS: Pantoprazole 40 mg EC Tab PO SCH (09:01)
[2017-05-17] MEDS ORDERED: Digoxin 250 mcg (0.25 mg) Tab PO ONE (11:42)
--- NOTE | 2017-05-17 13:12 | CP.PCM.PN ---
Subjective - Date & Time of Evaluation Date of Evaluation: 05/17/17 Time of Evaluation: 14:00 - Subjective Subjective: SEEN ON RENAL F/U IN BED .. MOM ON THE BED SIDE C/O R FEMORAL MUSCLE PAIN C/O MILD WEAKNESS THAT HE CONTRIBUTES TO LOW BP TELLING ME THAT HE IS GOING HOME TODAY Objective - Vital Signs/Intake and Output Vital Signs (last 24 hours): Temp Pulse Resp BP Pulse Ox 98.5 F 127 H 18 109/67 100 05/17/17 12:00 05/17/17 12:00 05/17/17 12:00 05/17/17 12:00 05/17/17 12:00 - Medications Medications: Current Medications Alprazolam (Xanax) 0.5 mg PO TID PRN PRN Reason: Anxiety Apixaban (Eliquis) 2.5 mg PO BID [facility] PRN Reason: Protocol Last Admin: 05/17/17 08:52 Dose: 2.5 mg Atorvastatin Calcium (Lipitor) 20 mg PO [facility] Last Admin: 05/16/17 21:19 Dose: 20 mg Clopidogrel Bisulfate (Plavix) 75 mg PO DAILY [facility] Last Admin: 05/17/17 08:55 Dose: 75 mg Digoxin (Lanoxin) 0.125 mg PO [facility] Diphenoxylate HCl/Atropine (Lomotil 0.025-2.5 Mg Tablet) 2 tab PO BID PRN PRN Reason: Diarrhea Home Med (Amino Acids/Protein Hydrolys [Liquacel 100 Liquid Protein]) 2 tbs PO DAILY [facility] Home Med (Febuxostat [Uloric]) 40 mg PO DAILY [facility] Insulin Human Regular (Humulin R) 0 units [place] ACCU-CHECK [facility] PRN Reason: Protocol Last Admin: 05/17/17 11:41 Dose: Not Given Megestrol Acetate (Megace) 600 mg PO DAILY [facility] Last Admin: 05/17/17 08:58 Dose: Not Given Minoxidil (Minoxidil) 2.5 mg PO DAILY [facility] Last Admin: 05/17/17 08:53 Dose: 2.5 mg Ondansetron HCl (Zofran Inj) 4 mg IVP Q6 PRN PRN Reason: Nausea/Vomiting Last Admin: 05/17/17 00:57 Dose: 4 mg Oxycodone/Acetaminophen (Percocet 5/325 Mg Tab) 2 tab PO Q6H PRN PRN Reason: Pain, severe (8-10) Stop: 05/18/17 18:07 Last Admin: 05/17/17 02:23 Dose: 2 tab Pantoprazole Sodium (Protonix Ec Tab) 40 mg PO DAILY [facility] Last Admin: 05/17/17 09:01 Dose: 40 mg Paroxetine HCl (Paxil) 10 mg PO DAILY [facility] Last Admin: 05/17/17 08:54 Dose: 10 mg Sevelamer HCl (Renagel) 2,400 mg PO TID [facility] Last Admin: 05/17/17 12:01 Dose: 2,400 mg Tamsulosin HCl (Flomax) 0.4 mg PO DAILY [facility] Last Admin: 05/17/17 08:52 Dose: 0.4 mg Verapamil HCl (Calan Sr Tab) 120 mg PO DAILY [facility] Last Admin: 05/17/17 08:51 Dose: 120 mg Vitamin B Complex/Vit C/Folic Acid (Nephro-Garcia) 1 tab PO DAILY [facility] Last Admin: 05/17/17 08:54 Dose: 1 tab - Labs Labs: 05/16/17 05:02 05/16/17 05:02 Assessment and Plan - Assessment and Plan (Free Text) Assessment: ESRD ON HD M W F ANEMIA OF CKD .. H/H STABLE A.FIB .. WAS STARTED ON DIG .. O.125 ON M W F .. MMP P : C/O CURRENT CARE C/O PRESENT MANAGEMENT CAN BE D/C FROM RENAL STANDPOINT NEXT HD IN AM AN OUT PT
--- NOTE | 2017-05-18 00:09 | PN ---
DATE: 05/17/2017 DAILY PROGRESS NOTE SUBJECTIVE: Patient was seen today on 05/17/2017. PHYSICAL EXAMINATION: GENERAL: He is not in any cardiopulmonary distress. VITAL SIGNS: Heart rate is 106, blood pressure 111/73, temperature 98.6, respiratory rate 14. HEENT: Pupils equal, reactive to light. Normal-appearing mucosa of the conjunctivae, oropharynx and nasal membrane mucosa. NECK: Supple. No JVD. No carotid bruit. No lymph node. No thyromegaly. CHEST AND LUNGS: Bilateral symmetrical expansion. Good air exchange. No rales, no rhonchi. CARDIOVASCULAR SYSTEM: PMI not localized. S1, S2. No additional sounds. ABDOMEN: Normoactive bowel sounds. No tenderness. No organomegaly. No masses. EXTREMITIES: No cyanosis, no clubbing, no edema. CENTRAL NERVOUS SYSTEM: Alert, awake, oriented x3. No neurological deficit could be appreciated. ASSESSMENT: Atrial fibrillation with rapid ventricular rate; end-stage renal disease, on hemodialysis; hypertension; type 2 diabetes mellitus. PLAN: Digoxin is added by Cardiology. Continue anticoagulant and we will and TobraDex for bilateral conjunctivitis. Mildred Warren MD
[2017-05-18] MEDS ORDERED: Dexamethasone/Tobramycin Ophth Susp OU SCH (01:00)
[2017-05-18] MEDS: Insulin Regular 100 units/ml SC SCH ×4 (08:00→23:06)
[2017-05-18] MEDS: Verapamil 120 mg ER Tab PO SCH (09:15)
[2017-05-18] MEDS: Megestrol Acetate 40 mg/ml Cup PO SCH (09:16)
[2017-05-18] MEDS: Digoxin 125 mcg (0.125 mg) Tab PO SCH (09:18)
[2017-05-18] MEDS: Multivitamin Vitamin B Complex (Nephro-Vite) Tab PO SCH (09:18)
[2017-05-18] MEDS: Pantoprazole 40 mg EC Tab PO SCH (09:19)
--- NOTE | 2017-05-18 09:25 | CP.PCM.PN ---
Subjective - Date & Time of Evaluation Date of Evaluation: 05/18/17 Time of Evaluation: 07:45 - Subjective Subjective: NO CHEST PAIN, PALPITATIONS OR SOB Objective - Vital Signs/Intake and Output Vital Signs (last 24 hours): Temp Pulse Resp BP Pulse Ox 97.2 F L 97 H 18 126/73 99 05/18/17 08:00 05/18/17 08:00 05/18/17 08:00 05/18/17 08:00 05/18/17 08:00 - Medications Medications: Current Medications Alprazolam (Xanax) 0.5 mg PO TID PRN PRN Reason: Anxiety Apixaban (Eliquis) 2.5 mg PO BID [facility] PRN Reason: Protocol Last Admin: 05/18/17 09:17 Dose: 2.5 mg Atorvastatin Calcium (Lipitor) 20 mg PO HS [facility] Last Admin: 05/17/17 21:56 Dose: 20 mg Clopidogrel Bisulfate (Plavix) 75 mg PO DAILY [facility] Last Admin: 05/18/17 09:19 Dose: 75 mg Digoxin (Lanoxin) 0.125 mg PO MWF [facility] Last Admin: 05/18/17 09:18 Dose: 0.125 mg Diphenoxylate HCl/Atropine (Lomotil 0.025-2.5 Mg Tablet) 2 tab PO BID PRN PRN Reason: Diarrhea Home Med (Amino Acids/Protein Hydrolys [Liquacel 100 Liquid Protein]) 2 tbs PO DAILY [facility] Home Med (Febuxostat [Uloric]) 40 mg PO DAILY [facility] Insulin Human Regular (Humulin R) 0 units SC ACCU-CHECK [facility] PRN Reason: Protocol Last Admin: 05/18/17 08:00 Dose: Not Given Megestrol Acetate (Megace) 600 mg PO DAILY [facility] Last Admin: 05/18/17 09:16 Dose: Not Given Minoxidil (Minoxidil) 2.5 mg PO DAILY [facility] Last Admin: 05/18/17 09:17 Dose: Not Given Neomycin/Polymyxin/Hydrocortisone (Cortisporin Opht Susp) 2 drop OU TID [facility] Ondansetron HCl (Zofran Inj) 4 mg IVP Q6 PRN PRN Reason: Nausea/Vomiting Last Admin: 05/18/17 05:33 Dose: 4 mg Oxycodone/Acetaminophen (Percocet 5/325 Mg Tab) 2 tab PO Q6H PRN PRN Reason: Pain, severe (8-10) Stop: 05/18/17 18:07 Last Admin: 05/17/17 13:38 Dose: 2 tab Pantoprazole Sodium (Protonix Ec Tab) 40 mg PO DAILY [facility] Last Admin: 05/18/17 09:19 Dose: 40 mg Paroxetine HCl (Paxil) 10 mg PO DAILY [facility] Last Admin: 05/18/17 09:18 Dose: 10 mg Sevelamer HCl (Renagel) 2,400 mg PO TID [facility] Last Admin: 05/18/17 09:19 Dose: 2,400 mg Tamsulosin HCl (Flomax) 0.4 mg PO DAILY [facility] Last Admin: 05/18/17 09:18 Dose: 0.4 mg Verapamil HCl (Calan Sr Tab) 120 mg PO DAILY [facility] Last Admin: 05/18/17 09:15 Dose: Not Given Vitamin B Complex/Vit C/Folic Acid (Nephro-Garcia) 1 tab PO DAILY [facility] Last Admin: 05/18/17 09:18 Dose: 1 tab - Labs Labs: 05/16/17 05:02 05/16/17 05:02 - Respiratory Exam Respiratory Exam: Clear to Ausculation Bilateral - Cardiovascular Exam Cardiovascular Exam: REGULAR RHYTHM, +S1, +S2 - Extremities Exam Additional comments: NO SIGNIFICANT LE EDEMA - Additional Findings Additional findings: WAITER/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
[2017-05-18 10:02] LABS: HEMOGLOBIN 10.6 g/dL (12.0-18.0); MEAN CELL VOLUME 81.6 fl (80.0-94.0); MEAN CORPUSCULAR HEMOGLOBIN 26.2 pg (27.0-31.0); MEAN CORPUSCULAR HGB CONC 32.2 g/dL (33.0-37.0); RBC 4.03 Mil/uL (4.40-5.90); RED CELL DISTRIBUTION WIDTH 14.8 % (11.5-14.5); WHITE BLOOD COUNT 5.3 K/uL (4.8-10.8)
[2017-05-18 10:24] LABS: ALB/GLOB RATIO 1.1 (1.0-2.1); ALBUMIN 3.9 g/dL (3.5-5.0); CALCIUM 10.4 mg/dL (8.4-10.2)
--- NOTE | 2017-05-18 10:26 | CP.PCM.PN ---
Subjective - Date & Time of Evaluation Date of Evaluation: 05/18/17 Time of Evaluation: 10:00 - Subjective Subjective: SEEN ON RENAL F/U SEEN ON HD FEELS IMPROVED ON HD M W F ON DIG RENAL DOSE Objective - Vital Signs/Intake and Output Vital Signs (last 24 hours): Temp Pulse Resp BP Pulse Ox 97.2 F L 97 H 18 126/73 99 05/18/17 08:00 05/18/17 08:00 05/18/17 08:00 05/18/17 08:00 05/18/17 08:00 - Medications Medications: Current Medications Alprazolam (Xanax) 0.5 mg PO TID PRN PRN Reason: Anxiety Apixaban (Eliquis) 2.5 mg PO BID [facility] PRN Reason: Protocol Last Admin: 05/18/17 09:17 Dose: 2.5 mg Atorvastatin Calcium (Lipitor) 20 mg PO HS [facility] Last Admin: 05/17/17 21:56 Dose: 20 mg Clopidogrel Bisulfate (Plavix) 75 mg PO DAILY [facility] Last Admin: 05/18/17 09:19 Dose: 75 mg Digoxin (Lanoxin) 0.125 mg PO MWF [facility] Last Admin: 05/18/17 09:18 Dose: 0.125 mg Diphenoxylate HCl/Atropine (Lomotil 0.025-2.5 Mg Tablet) 2 tab PO BID PRN PRN Reason: Diarrhea Home Med (Amino Acids/Protein Hydrolys [Liquacel 100 Liquid Protein]) 2 tbs PO DAILY [facility] Home Med (Febuxostat [Uloric]) 40 mg PO DAILY [facility] Insulin Human Regular (Humulin R) 0 units ND ACCU-CHECK [facility] PRN Reason: Protocol Last Admin: 05/18/17 08:00 Dose: Not Given Megestrol Acetate (Megace) 600 mg PO DAILY [facility] Last Admin: 05/18/17 09:16 Dose: Not Given Minoxidil (Minoxidil) 2.5 mg PO DAILY [facility] Last Admin: 05/18/17 09:17 Dose: Not Given Neomycin/Polymyxin/Hydrocortisone (Cortisporin Opht Susp) 2 drop OU TID [facility] Ondansetron HCl (Zofran Inj) 4 mg IVP Q6 PRN PRN Reason: Nausea/Vomiting Last Admin: 05/18/17 05:33 Dose: 4 mg Oxycodone/Acetaminophen (Percocet 5/325 Mg Tab) 2 tab PO Q6H PRN PRN Reason: Pain, severe (8-10) Stop: 05/18/17 18:07 Last Admin: 05/17/17 13:38 Dose: 2 tab Pantoprazole Sodium (Protonix Ec Tab) 40 mg PO DAILY [facility] Last Admin: 05/18/17 09:19 Dose: 40 mg Paroxetine HCl (Paxil) 10 mg PO DAILY [facility] Last Admin: 05/18/17 09:18 Dose: 10 mg Sevelamer HCl (Renagel) 2,400 mg PO TID [facility] Last Admin: 05/18/17 09:19 Dose: 2,400 mg Tamsulosin HCl (Flomax) 0.4 mg PO DAILY [facility] Last Admin: 05/18/17 09:18 Dose: 0.4 mg Verapamil HCl (Calan Sr Tab) 120 mg PO DAILY [facility] Last Admin: 05/18/17 09:15 Dose: Not Given Vitamin B Complex/Vit C/Folic Acid (Nephro-Garcia) 1 tab PO DAILY [facility] Last Admin: 05/18/17 09:18 Dose: 1 tab - Labs Labs: 05/18/17 09:45 05/18/17 09:45 Assessment and Plan - Assessment and Plan (Free Text) Assessment: C/O CURRENT CARE
--- NOTE | 2017-05-18 10:59 | CARD ---
APPROVED REPORT EKG Measurement Heart [id number] OH 230P50 [id number] <Conclusion> Sinus rhythm with 1st degree AV block with premature atrial complexes Left axis deviation Right bundle branch block Abnormal ECG
[2017-05-18] MEDS ORDERED: Digoxin 250 mcg (0.25 mg) Tab PO ONE (12:00)
[2017-05-18] MEDS: Oxycodone/Acetaminophen 5/325 mg Tab PO PRN (14:32)
[2017-05-18] MEDS: Maxitrol Opht Susp OU SCH (18:33)
[2017-05-19] MEDS: Insulin Regular 100 units/ml SC SCH ×5 (06:41→22:33)
[2017-05-19] MEDS: Verapamil 120 mg ER Tab PO SCH (08:29)
[2017-05-19] MEDS: Megestrol Acetate 40 mg/ml Cup PO SCH ×2 (08:30→12:51)
[2017-05-19] MEDS: Multivitamin Vitamin B Complex (Nephro-Vite) Tab PO SCH (08:33)
[2017-05-19] MEDS: Maxitrol Opht Susp OU SCH ×3 (08:33→16:09)
[2017-05-19] MEDS: Pantoprazole 40 mg EC Tab PO SCH (08:34)
[2017-05-19] MEDS ORDERED: Digoxin 125 mcg (0.125 mg) Tab PO SCH (09:00)
--- NOTE | 2017-05-19 10:03 | CP.PCM.PN ---
Subjective - Date & Time of Evaluation Date of Evaluation: 05/19/17 Time of Evaluation: 09:30 - Subjective Subjective: NO CHEST PAIN, PALPITATIONS OR SOB HAD SOME NAUSEA YESTERDAY Objective - Vital Signs/Intake and Output Vital Signs (last 24 hours): Temp Pulse Resp BP Pulse Ox 98.6 F 118 H 20 149/89 96 05/19/17 07:49 05/19/17 07:49 05/19/17 07:49 05/19/17 07:49 05/19/17 07:49 - Medications Medications: Current Medications Alprazolam (Xanax) 0.5 mg PO TID PRN PRN Reason: Anxiety Apixaban (Eliquis) 2.5 mg PO BID [facility] PRN Reason: Protocol Last Admin: 05/19/17 08:32 Dose: 2.5 mg Atorvastatin Calcium (Lipitor) 20 mg PO [facility] Last Admin: 05/18/17 22:00 Dose: 20 mg Clopidogrel Bisulfate (Plavix) 75 mg PO DAILY [facility] Last Admin: 05/19/17 08:33 Dose: 75 mg Digoxin (Lanoxin) 0.125 mg PO F [facility] Last Admin: 05/18/17 09:18 Dose: 0.125 mg Diphenoxylate HCl/Atropine (Lomotil 0.025-2.5 Mg Tablet) 2 tab PO BID PRN PRN Reason: Diarrhea Home Med (Amino Acids/Protein Hydrolys [Liquacel 100 Liquid Protein]) 2 tbs PO DAILY [facility] Home Med (Febuxostat [Uloric]) 40 mg PO DAILY [facility] Insulin Human Regular (Humulin R) 0 units SC ACCU-CHECK [facility] PRN Reason: Protocol Last Admin: 05/19/17 06:42 Dose: Not Given Megestrol Acetate (Megace) 600 mg PO DAILY [facility] Last Admin: 05/19/17 08:30 Dose: Not Given Morphine Sulfate (Morphine) 2 mg IVP Q6 PRN PRN Reason: Pain, severe (8-10) Last Admin: 05/19/17 08:57 Dose: 2 mg Neomycin/Polymyxin/Dexamethasone (Maxitrol Opht Susp) 1 drop OU TID [facility] Last Admin: 05/19/17 08:33 Dose: 1 drop Ondansetron HCl (Zofran Inj) 4 mg IVP Q6 PRN PRN Reason: Nausea/Vomiting Last Admin: 05/18/17 14:33 Dose: 4 mg Pantoprazole Sodium (Protonix Ec Tab) 40 mg PO DAILY [facility] Last Admin: 05/19/17 08:34 Dose: 40 mg Paroxetine HCl (Paxil) 10 mg PO DAILY [facility] Last Admin: 05/19/17 08:33 Dose: 10 mg Sevelamer HCl (Renagel) 2,400 mg PO TID [facility] Last Admin: 05/19/17 08:32 Dose: 2,400 mg Tamsulosin HCl (Flomax) 0.4 mg PO DAILY [facility] Last Admin: 05/19/17 08:33 Dose: 0.4 mg Verapamil HCl (Calan Tab) 80 mg PO Q8 [facility] Vitamin B Complex/Vit C/Folic Acid (Nephro-Garcia) 1 tab PO DAILY [facility] Last Admin: 05/19/17 08:33 Dose: 1 tab - Labs Labs: 05/18/17 09:45 05/18/17 09:45 - Respiratory Exam Respiratory Exam: Clear to Ausculation Bilateral - Cardiovascular Exam Cardiovascular Exam: Tachycardia, REGULAR RHYTHM - Extremities Exam Additional comments: NO LOWER EXTREMITY EDEMA - Additional Findings Additional findings: 05/18/17 DOCUMENT CONTROL SPECIALIST LATER AM AND EARLY PM AFTER HEMODIALYSIS SHOWED RECURRENCE OF ATRIAL FIBRILLATION(THE PATIENT DID NOT RECEIVE VERAPAMIL DUE TO CONCERNS OF HYPOTENSION ON DIALYSIS) DOCUMENT CONTROL SPECIALIST LATER PM SHOWED SINUS AFTER RECEIVING ORAL DIGOXIN DOCUMENT CONTROL SPECIALIST THIS AM WITH SINUS RHYTHM WITH PERIODS OF SINUS TACHYCARDIA IN THE 120'S AND 130'S DIGOXIN LEVEL 2.4 Assessment and Plan - Assessment and Plan (Free Text) Assessment: RECURRENT ATRIAL FIBRILLATION-NOW IN SINUS RHYTHM ON VERAPAMIL AND DIGOXIN HYPERTENSION HYPERLIPIDEMIA DM CKD ON HD Plan: THE PATIENT WAS DISCUSSED WITH DR BATES AND WE DECIDED TO STOP MINOXIDIL AND CHANGE VERAPAMIL TO 80 MGS ORALLY Q 8 HRS AND ALSO CONTINUE DIGOXIN TO TRY TO CONTROL HIS HEART RATE BETTER AND TRY TO KEEP IN SINUS RHYTHM CONTINUE ELIQUIS, ATORVASTATIN AND CLOPIDOGREL CONTINUE TO MONITOR ON TELEMETRY CONTINUE HD
--- NOTE | 2017-05-19 10:43 | CARD ---
APPROVED REPORT EKG Measurement Heart [id number] <Conclusion> Wide QRS rhythm Left axis deviation Right bundle branch block Abnormal ECG
[2017-05-19 11:21] LABS: HEMOGLOBIN 11.5 g/dL (12.0-18.0); MEAN CELL VOLUME 81.4 fl (80.0-94.0); MEAN CORPUSCULAR HEMOGLOBIN 25.9 pg (27.0-31.0); MEAN CORPUSCULAR HGB CONC 31.8 g/dL (33.0-37.0); RBC 4.43 Mil/uL (4.40-5.90); RED CELL DISTRIBUTION WIDTH 14.4 % (11.5-14.5); WHITE BLOOD COUNT 6.9 K/uL (4.8-10.8)
[2017-05-19 11:36] LABS: ALB/GLOB RATIO 1.1 (1.0-2.1); CALCIUM 10.5 mg/dL (8.4-10.2)
[2017-05-19] MEDS: Oxycodone/Acetaminophen 5/325 mg Tab PO PRN ×2 (12:45→21:39)
--- NOTE | 2017-05-19 13:09 | PN ---
DATE: 05/18/2017 SUBJECTIVE: He was feeling nauseous. OBJECTIVE: VITAL SIGNS: The patient was still tachycardic with a heart rate of 105, in atrial fibrillation; temperature 98.6; respiratory rate 18; blood pressure 116/69. HEENT: Pupils are equal, reactive to light. Normal-appearing mucosa of the conjunctivae, oropharynx, and nasal membrane mucosa. NECK: Supple. No JVD. No carotid bruit. No lymph node. No thyromegaly. CHEST AND LUNGS: Bilateral symmetrical expansion. Good air exchange. No rales. No rhonchi. CARDIOVASCULAR SYSTEM: PMI not localized. S1, S2. Irregularly irregular. ABDOMEN: Normoactive bowel sounds. No tenderness. No organomegaly. No masses. EXTREMITIES: No cyanosis, no clubbing, no edema. CENTRAL NERVOUS SYSTEM: Alert, awake, oriented x3. No neurological deficit could be appreciated. ASSESSMENT: 1. Atrial fibrillation with rapid ventricular rate. 2. Possible digoxin toxicity with nausea. 3. End-stage renal disease, on hemodialysis. 4. Hypertension. PLAN: We ordered digoxin level stat and discussed with Dr. Godfrey. We will hold digoxin at this point because of nausea, will give Zofran, and the patient also was complaining of generalized bone pain, and we will give morphine sulfate 2 mg every 6 hours p.r.n. for pain. Continue the patient's monitoring on telemetry and continue anticoagulant. Mildred Warren MD
--- NOTE | 2017-05-19 17:12 | CP.PCM.PN ---
Subjective - Date & Time of Evaluation Date of Evaluation: 05/19/17 Time of Evaluation: 15:00 - Subjective Subjective: SEEN ON RENAK F/U SEEN ON HD MILD NAUSEUOSNESS .. DIG LEVEL IS 2.4 ALL PREVIOUS EMR REVIEWED Objective - Vital Signs/Intake and Output Vital Signs (last 24 hours): Temp Pulse Resp BP Pulse Ox 98.5 F 97 H 18 134/85 97 05/19/17 15:42 05/19/17 16:08 05/19/17 15:42 05/19/17 16:08 05/19/17 15:42 - Medications Medications: Current Medications Alprazolam (Xanax) 0.5 mg PO TID PRN PRN Reason: Anxiety Apixaban (Eliquis) 2.5 mg PO BID [facility] PRN Reason: Protocol Last Admin: 05/19/17 16:09 Dose: 2.5 mg Atorvastatin Calcium (Lipitor) [address] [facility] Last Admin: 05/18/17 22:00 Dose: 20 mg Clopidogrel Bisulfate (Plavix) 75 mg PO DAILY [facility] Last Admin: 05/19/17 08:33 Dose: 75 mg Digoxin (Lanoxin) 0.125 mg PO MWF [facility] Last Admin: 05/18/17 09:18 Dose: 0.125 mg Diphenoxylate HCl/Atropine (Lomotil 0.025-2.5 Mg Tablet) 2 tab PO BID PRN PRN Reason: Diarrhea Home Med (Amino Acids/Protein Hydrolys [Liquacel 100 Liquid Protein]) 2 tbs PO DAILY [facility] Home Med (Febuxostat [Uloric]) 40 mg PO DAILY [facility] Insulin Human Regular (Humulin R) 0 units SC ACCU-CHECK [facility] PRN Reason: Protocol Last Admin: 05/19/17 12:28 Dose: Not Given Megestrol Acetate (Megace) 600 mg PO DAILY [facility] Last Admin: 05/19/17 12:51 Dose: 600 mg Morphine Sulfate (Morphine) 2 mg IVP Q6 PRN PRN Reason: Pain, severe (8-10) Last Admin: 05/19/17 16:11 Dose: 2 mg Neomycin/Polymyxin/Dexamethasone (Maxitrol Opht Susp) 1 drop OU TID [facility] Last Admin: 05/19/17 16:09 Dose: 1 drop Ondansetron HCl (Zofran Inj) 4 mg IVP Q6 PRN PRN Reason: Nausea/Vomiting Last Admin: 05/18/17 14:33 Dose: 4 mg Oxycodone/Acetaminophen (Percocet 5/325 Mg Tab) 2 tab PO Q6H PRN PRN Reason: Pain, moderate (4-7) Stop: 05/22/17 11:28 Last Admin: 05/19/17 12:45 Dose: 2 tab Pantoprazole Sodium (Protonix Ec Tab) 40 mg PO DAILY [facility] Last Admin: 05/19/17 08:34 Dose: 40 mg Paroxetine HCl (Paxil) 10 mg PO DAILY [facility] Last Admin: 05/19/17 08:33 Dose: 10 mg Sevelamer HCl (Renagel) 2,400 mg PO TID [facility] Last Admin: 05/19/17 16:09 Dose: 2,400 mg Tamsulosin HCl (Flomax) 0.4 mg PO DAILY [facility] Last Admin: 05/19/17 08:33 Dose: 0.4 mg Verapamil HCl (Calan Tab) 80 mg PO Q8 [facility] Last Admin: 05/19/17 16:08 Dose: 80 mg Vitamin B Complex/Vit C/Folic Acid (Nephro-Garcia) 1 tab PO DAILY [facility] Last Admin: 05/19/17 08:33 Dose: 1 tab - Labs Labs: 05/19/17 11:12 05/19/17 11:12 Assessment and Plan - Assessment and Plan (Free Text) Assessment: ESRD ON HD M W F .. EXTRA HD TODAY C/O CURRENT CARE
[2017-05-20] MEDS: Oxycodone/Acetaminophen 5/325 mg Tab PO PRN (05:35)
[2017-05-20] MEDS: Insulin Regular 100 units/ml SC SCH ×2 (06:33→15:05)
[2017-05-20] MEDS: Digoxin 125 mcg (0.125 mg) Tab PO SCH (09:34)
[2017-05-20] MEDS: Megestrol Acetate 40 mg/ml Cup PO SCH (09:35)
[2017-05-20] MEDS: Maxitrol Opht Susp OU SCH ×3 (09:35→16:49)
[2017-05-20] MEDS: Multivitamin Vitamin B Complex (Nephro-Vite) Tab PO SCH (09:36)
[2017-05-20 09:37] VITALS: PULSE 86
[2017-05-20] MEDS: Pantoprazole 40 mg EC Tab PO SCH (09:37)
--- NOTE | 2017-05-20 11:23 | CP.PCM.PN ---
Subjective - Date & Time of Evaluation Date of Evaluation: 05/20/17 Time of Evaluation: 09:30 - Subjective Subjective: NO CHEST PAIN, PALPITATIONS, SOB OR NAUSEA Objective - Vital Signs/Intake and Output Vital Signs (last 24 hours): Temp Pulse Resp BP Pulse Ox 98.7 F 86 17 152/88 H 98 05/20/17 08:08 05/20/17 08:08 05/20/17 08:08 05/20/17 09:32 05/20/17 08:08 - Medications Medications: Current Medications Alprazolam (Xanax) 0.5 mg PO TID PRN PRN Reason: Anxiety Apixaban (Eliquis) 2.5 mg PO BID [facility] PRN Reason: Protocol Last Admin: 05/20/17 09:34 Dose: 2.5 mg Atorvastatin Calcium (Lipitor) 20 mg PO [facility] Last Admin: 05/19/17 21:39 Dose: 20 mg Clopidogrel Bisulfate (Plavix) 75 mg PO DAILY [facility] Last Admin: 05/20/17 09:36 Dose: 75 mg Digoxin (Lanoxin) 0.125 mg PO [facility] [place] Admin: 05/20/17 09:34 Dose: 0.125 mg Diphenoxylate HCl/Atropine (Lomotil 0.025-2.5 Mg Tablet) 2 tab PO BID PRN PRN Reason: Diarrhea Insulin Human Regular (Humulin R) 0 units SC ACCU-CHECK [facility] PRN Reason: Protocol Last Admin: 05/20/17 06:33 Dose: Not Given Megestrol Acetate (Megace) 600 mg PO DAILY [facility] Last Admin: 05/20/17 09:35 Dose: 600 mg Morphine Sulfate (Morphine) 2 mg IVP Q6 PRN PRN Reason: Pain, severe (8-10) Last Admin: 05/20/17 10:38 Dose: 2 mg Neomycin/Polymyxin/Dexamethasone (Maxitrol Opht Susp) 1 drop OU TID [facility] Last Admin: 05/20/17 09:35 Dose: 1 drop Ondansetron HCl (Zofran Inj) 4 mg IVP Q6 PRN PRN Reason: Nausea/Vomiting Last Admin: 05/18/17 14:33 Dose: 4 mg Oxycodone/Acetaminophen (Percocet 5/325 Mg Tab) 2 tab PO Q6H PRN PRN Reason: Pain, moderate (4-7) Stop: 05/22/17 11:28 Last Admin: 05/20/17 05:35 Dose: 2 tab Pantoprazole Sodium (Protonix Ec Tab) 40 mg PO DAILY [facility] Last Admin: 05/20/17 09:37 Dose: 40 mg Paroxetine HCl (Paxil) 10 mg PO DAILY [facility] Last Admin: 05/20/17 09:36 Dose: 10 mg Sevelamer HCl (Renagel) 2,400 mg PO TID [facility] Last Admin: 05/20/17 09:37 Dose: 2,400 mg Tamsulosin HCl (Flomax) 0.4 mg PO DAILY [facility] Last Admin: 05/20/17 09:34 Dose: 0.4 mg Verapamil HCl (Calan Tab) 80 mg PO Q8 [facility] Last Admin: 05/20/17 09:32 Dose: 80 mg Vitamin B Complex/Vit C/Folic Acid (Nephro-Garcia) 1 tab PO DAILY [facility] Last Admin: 05/20/17 09:36 Dose: 1 tab - Labs Labs: 05/19/17 11:12 05/19/17 11:12 - Respiratory Exam Respiratory Exam: Clear to Ausculation Bilateral - Cardiovascular Exam Cardiovascular Exam: REGULAR RHYTHM, +S1, +S2 - Extremities Exam Additional comments: NO SIGNIFICANT LE EDEMA - Additional Findings Additional findings: 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
[2017-05-20 16:33] VITALS: RESP 20
[2017-05-20 19:22] VITALS: BP 132/77; PULSE 84; TEMP 97.9; O2SAT 98
--- NOTE | 2017-05-20 23:58 | DS ---
REASON FOR ADMISSION: This is a 52-year-old male with history of multiple medical problems including end-stage renal disease, on hemodialysis, who was admitted for atrial fibrillation with rapid ventricular rate. COURSE OF HOSPITALIZATION: The patient was admitted to telemetry floor and he had a cardiology consult done by Dr. Godfrey. The patient's symptoms of palpitation were getting better. The patient was continued on hemodialysis as per Dr. Pinto. On verapamil and digoxin. The patient's heart rate was controlled. The patient was continued on Eliquis and Minoxidil was discontinued. The patient was discharged home in a stable condition to follow up with Dr. Warren in 1 week. FINAL DIAGNOSES: 1. Atrial fibrillation with rapid ventricular rate. 2. Hypertension. 3. Type 2 diabetes mellitus. 4. End-stage renal disease, on hemodialysis. [facility] MD Kelvin
== END 2017-05-20 21:10 | disposition home or self-care (01) | DRG 308 ==
LOC: H.ER 14:54 → H.ERHOLD 17:47 → H.TEL 21:23 → OBSVTOIN 05-16 13:21
PROVIDERS: ADMIT Internal Medicine; ATTEND Internal Medicine
PROC: 5A1D70Z Performance of Urinary Filtration, Intermittent, Less than 6 Hours Per Day (ICD-10-PCS; principal; 2017-05-16)
DX: I48.0 Paroxysmal atrial fibrillation (principal); N18.6 End stage renal disease; E11.22 Type 2 diabetes mellitus with diabetic chronic kidney disease; E11.40 Type 2 diabetes mellitus with diabetic neuropathy, unspecified; I12.0 Hypertensive chronic kidney disease with stage 5 chronic kidney disease or end stage renal disease; D63.1 Anemia in chronic kidney disease; E11.51 Type 2 diabetes mellitus with diabetic peripheral angiopathy without gangrene; G25.81 Restless legs syndrome; E78.00 Pure hypercholesterolemia, unspecified; E78.5 Hyperlipidemia, unspecified; F32.9 Major depressive disorder, single episode, unspecified; F41.9 Anxiety disorder, unspecified; G47.30 Sleep apnea, unspecified; M10.9 Gout, unspecified; M81.0 Age-related osteoporosis without current pathological fracture; K21.9 Gastro-esophageal reflux disease without esophagitis; K29.70 Gastritis, unspecified, without bleeding; Z99.2 Dependence on renal dialysis; Z88.1 Allergy status to other antibiotic agents; Z79.01 Long term (current) use of anticoagulants; M19.90 Unspecified osteoarthritis, unspecified site; H10.9 Unspecified conjunctivitis

== ENCOUNTER 2017-07-05 10:33 | Emergency (ER) | payer MEDICARE, MEDICAID ==
[2017-07-05 10:34] VITALS: PULSE 86
[2017-07-05 10:38] VITALS: RESP 16; TEMP 98.4; O2SAT 96
[2017-07-05 10:39] VITALS: BMI 26.6
--- NOTE | 2017-07-05 11:12 | ED PDOC ---
HPI: Neurologic - General Time Seen by Provider: 07/05/17 10:45 Chief Complaint (Provider): Restless leg syndrome - History of Present Illness Allergies/Adverse Reactions: Allergies ketorolac [From Toradol] Allergy (Verified 05/15/17 14:59) RASH propoxyphene napsylate [From Darvocet-N] Allergy (Verified 05/15/17 14:59) RASH vancomycin Adverse Reaction (Verified 05/15/17 14:59) RASH Home Medications: Ambulatory Orders Acetaminophen/Oxycodone Hydr [Percocet 10/325 mg Tab] 1 tab PO Q6H PRN 05/24/16 Febuxostat [Uloric] 40 mg PO DAILY 05/24/16 Megestrol Acetate [Megace] 5 ml PO Q6H 05/24/16 Sevelamer Carbonate [Renvela] 2,400 mg PO TID 05/24/16 PARoxetine [Paxil] 10 mg PO DAILY 07/19/16 Apixaban [Eliquis] 2.5 mg PO Q12 12/24/16 Tamsulosin [Flomax] 0.4 mg PO DAILY 12/24/16 Alprazolam [Xanax] 0.5 mg PO TID PRN 05/15/17 Alprazolam [Xanax] 0.5 mg PO HS #7 tab 07/05/17 Atorvastatin [Lipitor] 40 mg PO HS 07/05/17 Digoxin [Digitek] 125 mcg PO MWF 07/05/17 Folic Acid/Vit B Complex and C [Renal Vitamin Tablet] 1 tab PO DAILY 07/05/17 Insulin Aspart, Recombinant [Novolog] 5 unit SC ACTID 07/05/17 Insulin Glargine, Recombina [Lantus] 50 unit SC HS 07/05/17 Labetalol [Trandate] 200 mg PO Q8 07/05/17 Lactulose [Generlac] 15 mg PO HS 07/05/17 Linaclotide [Linzess] 145 mcg PO DAILY PRN 07/05/17 Lisinopril [Zestril] 5 mg PO DAILY 07/05/17 Minoxidil [Minoxidil] 2.5 mg PO Q12 07/05/17 Ramsey-3 Fatty Acids [Ramsey-3] 1,000 mg PO Q12 07/05/17 Pantoprazole Sodium [Protonix] 40 mg PO DAILY 07/05/17 Ticagrelor [Brilinta] 90 mg PO Q12 07/05/17 Verapamil HCl [Verapamil Sr] 120 mg PO DAILY 07/05/17 cycloSPORINE [Restasis] 1 drop EACHEYE Q12 07/05/17 Additional Complaint(s): This is a 52 year old male with multiple medical problems, including Type 2 DM, ESRD with dialysis M-W-F, hyperlipidemia, gout, Restless Legs syndrome for which he takes Percocet, , gastritis, HTN, osteoporosis, sleep apnea, history of paroxysmal atrial fibrillation with history of rapid afib in the past, who presents to the ED tfor evaluation of severe restless legs x 2 days now. Pt reports he was supposed to go see Dr. aguilar last week; however, underwent emergent cardiac cath at [facility] and was just released over the weekend. The patient denies cp, sob, weakness, vomiting, diarrhea, recent illnesses. Pt reports the only thing that "cures" his legs is Percocet Dr. Warren- PMD Dr. Godfrey- Cardio Dr. 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 Past Medical History Reviewed: Historical Data, Nursing Documentation, Vital Signs Vital Signs: Last Vital Signs Temp 98.4 F 07/05/17 10:37 Pulse 82 07/05/17 10:37 Resp 16 07/05/17 10:37 BP 181/117 H 07/05/17 10:37 Pulse Ox 96 07/05/17 10:37 - Medical History PMH: Anemia, Anxiety, Arthritis, Atrial Fibrillation, Cardia Arrhythmia, Depression, Diabetes (type II), Gastritis, GERD, HTN, Hypercholesterolemia, Osteoporosis, Peripheral Edema, End Stage Renal Disease, Chronic Kidney Disease , Sleep Apnea Denies: CHF, Fractures, HIV, Hypothyroidism, Kidney Stones - Surgical History Surgical History: Appendectomy, Endoscopy - Family History Family History: States: Unknown Family Hx, Hypertension - Living Arrangements Living Arrangements: With Family - Social History Ex-Smoker (has not smoked in the last 12 months): Yes - Home Medications Home Medications: Ambulatory Orders Medication Instructions Recorded Acetaminophen/Oxycodone Hydr 1 tab PO Q6H PRN 05/24/16 [Percocet 10/325 mg Tab] Febuxostat [Uloric] 40 mg PO DAILY 05/24/16 Megestrol Acetate [Megace] 5 ml PO Q6H 05/24/16 Sevelamer Carbonate [Renvela] 2,400 mg PO TID 05/24/16 PARoxetine [Paxil] 10 mg PO DAILY 07/19/16 Apixaban [Eliquis] 2.5 mg PO Q12 12/24/16 Tamsulosin [Flomax] 0.4 mg PO DAILY 12/24/16 Alprazolam [Xanax] 0.5 mg PO TID PRN 05/15/17 Alprazolam [Xanax] 0.5 mg PO HS #7 tab 07/05/17 Atorvastatin [Lipitor] 40 mg PO HS 07/05/17 Digoxin [Digitek] 125 mcg PO MWF 07/05/17 Folic Acid/Vit B Complex and C 1 tab PO DAILY 07/05/17 [Renal Vitamin Tablet] Insulin Aspart, Recombinant 5 unit SC ACTID 07/05/17 [Novolog] Insulin Glargine, Recombina 50 unit SC HS 07/05/17 [Lantus] Labetalol [Trandate] 200 mg PO Q8 07/05/17 Lactulose [Generlac] 15 mg PO HS 07/05/17 Linaclotide [Linzess] 145 mcg PO DAILY PRN 07/05/17 Lisinopril [Zestril] 5 mg PO DAILY 07/05/17 Minoxidil [Minoxidil] 2.5 mg PO Q12 07/05/17 Ramsey-3 Fatty Acids [Ramsey-3] 1,000 mg PO Q12 07/05/17 Pantoprazole Sodium [Protonix] 40 mg PO DAILY 07/05/17 Ticagrelor [Brilinta] 90 mg PO Q12 07/05/17 Verapamil HCl [Verapamil Sr] 120 mg PO DAILY 07/05/17 cycloSPORINE [Restasis] 1 drop EACHEYE Q12 07/05/17 - Allergies Allergies/Adverse Reactions: Allergies Allergy/AdvReac Type Severity Reaction Status Date / Time ketorolac [From Toradol] Allergy RASH Verified 05/15/17 14:59 propoxyphene napsylate Allergy RASH Verified 05/15/17 14:59 [From Darvocet-N] vancomycin AdvReac RASH Verified 05/15/17 14:59 Review of Systems ROS Statement: Except As Marked, All Systems Reviewed And Found Negative Musculoskeletal: Positive for: Leg Pain Physical Exam - Reviewed Nursing Documentation Reviewed: Yes Vital Signs Reviewed: Yes - Physical Exam Appears: Positive for: Well, Non-toxic, No Acute Distress Head Exam: Positive for: ATRAUMATIC, NORMAL INSPECTION, NORMOCEPHALIC Skin: Positive for: Normal Color, Warm, DRY Eye Exam: Positive for: EOMI, Normal appearance, PERRL ENT: Positive for: Normal ENT Inspection Neck: Positive for: Normal, Painless ROM Cardiovascular/Chest: Positive for: Regular Rate, Rhythm Respiratory: Positive for: CNT, Normal Breath Sounds Gastrointestinal/Abdominal: Positive for: Normal Exam, Bowel Sounds, Soft Back: Positive for: Normal Inspection Extremity: Positive for: Normal ROM (Pt reports both legs continue to "spasm" Pt shaking legs vicorously ). Negative for: Tenderness, Calf Tenderness, Swelling Neurologic/Psych: Positive for: Alert, Oriented - Laboratory Results Result Diagrams: 07/05/17 12:30 07/05/17 12:30 - ECG O2 Sat by Pulse Oximetry: 96 Medical Decision Making Medical Decision Making: Diagnostics ordered.labs reviewed with Pt's PMD who agree Pt stable for discharge at this time ED MD, Dr. Glalegos aware as well Pt medicated with Percoet upon arrival, legs spasms hace stopped on re-eval repeat BP: 160/90 Disposition - Clinical Impression Clinical Impression: Restless leg - Patient ED Disposition Is Patient to be Admitted: No - Disposition Disposition: Routine/Home Disposition Time: 16:00 Condition: STABLE Additional Instructions: Follow up with dr. Aguilar as discussed Prescriptions: Alprazolam [Xanax] 0.5 mg PO HS #7 tab Instructions: Restless Legs Syndrome Forms: [facility] ([place])
[2017-07-05] MEDS ORDERED: Oxycodone/Acetaminophen 5/325 mg Tab PO STA ×2 (12:34→14:51)
--- NOTE | 2017-07-05 12:39 | RAD ---
PROCEDURE: CHEST RADIOGRAPH, 1 VIEW HISTORY: med screening COMPARISON: Chest radiograph dated 05/15/2017 FINDINGS: LUNGS: Clear. PLEURA: No pneumothorax or pleural fluid seen. CARDIOVASCULAR: Cardiomediastinal silhouette stably enlarged. OSSEOUS STRUCTURES: Unchanged. VISUALIZED UPPER ABDOMEN: Normal. OTHER FINDINGS: Right subclavian/ axillary vascular stents redemonstrated. Left internal jugular access tunneled hemodialysis catheter, unchanged. Left axillary surgical clips redemonstrated. IMPRESSION: No active disease.
[2017-07-05 12:43] LABS: BASO # 0.1 K/uL (0.0-0.2); BASO % 0.9 % (0.0-2.0); EOS # 0.2 K/uL (0.0-0.7); EOS % 3.5 % (0.0-4.0); LYMPH # 1.4 K/uL (1.0-4.3); LYMPH % 21.2 % (20.0-40.0); MEAN CELL VOLUME 83.9 fl (80.0-94.0); MEAN CORPUSCULAR HEMOGLOBIN 27.7 pg (27.0-31.0); MEAN PLATELET VOLUME 7.2 fl (7.2-11.7); MONO # 1.2 K/uL (0.0-0.8); NEUT # 3.5 K/uL (1.8-7.0); NEUT % 55.4 % (50.0-75.0); NRBC % 0.1 % (0.0-0.0); RBC 3.24 Mil/uL (4.40-5.90); RED CELL DISTRIBUTION WIDTH 15.8 % (11.5-14.5); WHITE BLOOD COUNT 6.4 K/uL (4.8-10.8)
[2017-07-05 13:05] LABS: ALBUMIN 3.4 g/dL (3.5-5.0); ALT/SGPT 25 U/L (21-72); AST/SGOT 40 U/L (17-59); BLOOD UREA NITROGEN 15 mg/dl (9-20); CALCIUM 11.1 mg/dL (8.4-10.2); MAGNESIUM 1.8 MG/DL (1.6-2.3)
[2017-07-05 13:27] LABS: GFR AFRICAN-AMERICAN 8; GFR NON-AFRICAN AMERICAN 7
[2017-07-05] MEDS ORDERED: Oxycodone/Acetaminophen 5/325 mg Tab ONE (14:53)
[2017-07-05] MEDS ORDERED: Sodium Chloride 0.9% 1,000 ML IV STA (15:35)
[2017-07-05 18:18] VITALS: BP 160/90; PULSE 81
--- NOTE | 2017-07-06 02:53 | CARD ---
APPROVED REPORT EKG Measurement Heart [id number] <Conclusion> Sinus rhythm with 1st degree AV block Left axis deviation Right bundle branch block Abnormal ECG
== END 2017-07-05 16:53 | disposition home or self-care (01) ==
LOC: H.ER 10:33
DX: G25.81 Restless legs syndrome (principal); E11.22 Type 2 diabetes mellitus with diabetic chronic kidney disease; E78.00 Pure hypercholesterolemia, unspecified; I12.0 Hypertensive chronic kidney disease with stage 5 chronic kidney disease or end stage renal disease; Z79.01 Long term (current) use of anticoagulants; Z79.4 Long term (current) use of insulin; Z88.1 Allergy status to other antibiotic agents
CPT/HCPCS: 71045; 80053; 80162; 82550; 83735; 84484; 85025; 93005; 99283; G0480

== ENCOUNTER 2017-08-17 22:17 | Inpatient (IN) | payer MEDICARE, MEDICAID ==
[2017-08-17 22:17] VITALS: PULSE 86; BMI 25.0
[2017-08-17] MEDS ORDERED: Labetalol 5 mg/ml Inj 20ML IVP STA (22:53)
[2017-08-17] MEDS ORDERED: Morphine 4 MG/ML VIAL ONE (23:28)
--- NOTE | 2017-08-17 23:38 | ED PDOC ---
HPI: Abdomen Time Seen by Provider: 08/17/17 22:30 Chief Complaint (Nursing): Abdominal Pain Chief Complaint (Provider): Abdominal Pain History Per: Patient History/Exam Limitations: no limitations Onset/Duration Of Symptoms: Mins (prior to arrival) Current Symptoms Are (Timing): Still Present Location Of Pain/Discomfort: Diffuse Quality Of Discomfort: "Pain" Associated Symptoms: Vomiting Additional Complaint(s): 52 year old male with a history of end stage renal disease presents to the ED complaining of diffuse abdominal pain and intractable vomiting after dialysis treatment today. Patient has been on dialysis since 2013. Today before arrival to the ED, he had 4 hours of dialysis treatment. Once treatment was over, patient began feeling the abdominal pain and vomiting along with weakness and dizziness. He reports a SBO 10 years ago as well as a laparatomy with the "removal of some intestine". Patient states he moves bowels regularly but does not urinate due to dialysis. Denies a recent history of any similar or related symptoms. PMD: Dr. Mildred Warren MD Past Medical History Reviewed: Historical Data, Nursing Documentation, Vital Signs Vital Signs: Last Vital Signs Temp 98.8 F 08/17/17 23:55 Pulse 82 08/18/17 00:02 Resp 15 08/17/17 23:55 BP 165/114 H 08/17/17 23:55 Pulse Ox 100 08/18/17 00:02 - Medical History PMH: Anemia, Anxiety, Arthritis, Atrial Fibrillation, Cardia Arrhythmia, Depression, Diabetes (type II), Gastritis, GERD, HTN, Hypercholesterolemia, Osteoporosis, Peripheral Edema, End Stage Renal Disease, Chronic Kidney Disease , Sleep Apnea Denies: CHF, Fractures, HIV, Hypothyroidism, Kidney Stones - Surgical History Surgical History: Appendectomy, Endoscopy Other surgeries: laparotomy (10 years ago), "removal of some intestine", AV fistula on left arm (last month) - Family History Family History: States: Unknown Family Hx, Hypertension - Home Medications Home Medications: Ambulatory Orders Medication Instructions Recorded Acetaminophen/Oxycodone Hydr 1 tab PO Q6H PRN 05/24/16 [Percocet 10/325 mg Tab] Febuxostat [Uloric] 40 mg PO DAILY 05/24/16 Megestrol Acetate [Megace] 5 ml PO Q6H 05/24/16 Sevelamer Carbonate [Renvela] 2,400 mg PO TID 05/24/16 PARoxetine [Paxil] 10 mg PO DAILY 07/19/16 Apixaban [Eliquis] 2.5 mg PO Q12 12/24/16 Tamsulosin [Flomax] 0.4 mg PO DAILY 12/24/16 Alprazolam [Xanax] 0.5 mg PO TID PRN 05/15/17 Alprazolam [Xanax] 0.5 mg PO HS #7 tab 07/05/17 Atorvastatin [Lipitor] 40 mg PO HS 07/05/17 Digoxin [Digitek] 125 mcg PO MWF 07/05/17 Folic Acid/Vit B Complex and C 1 tab PO DAILY 07/05/17 [Renal Vitamin Tablet] Insulin Aspart, Recombinant 5 unit SC ACTID 07/05/17 [Novolog] Insulin Glargine, Recombina 50 unit SC HS 07/05/17 [Lantus] Labetalol [Trandate] 200 mg PO Q8 07/05/17 Lactulose [Generlac] 15 mg PO HS 07/05/17 Linaclotide [Linzess] 145 mcg PO DAILY PRN 07/05/17 Lisinopril [Zestril] 5 mg PO DAILY 07/05/17 Minoxidil [Minoxidil] 2.5 mg PO Q12 07/05/17 [place]-3 Fatty Acids [[place]-3] 1,000 mg PO Q12 07/05/17 Pantoprazole Sodium [Protonix] 40 mg PO DAILY 07/05/17 Ticagrelor [Brilinta] 90 mg PO Q12 07/05/17 Verapamil HCl [Verapamil Sr] 120 mg PO DAILY 07/05/17 cycloSPORINE [Restasis] 1 drop EACHEYE Q12 07/05/17 - Allergies Allergies/Adverse Reactions: Allergies Allergy/AdvReac Type Severity Reaction Status Date / Time aspirin Allergy RASH Verified 08/17/17 22:19 ketorolac [From Toradol] Allergy RASH Verified 05/15/17 14:59 propoxyphene napsylate Allergy RASH Verified 05/15/17 14:59 [From Darvocet-N] vancomycin AdvReac RASH Verified 05/15/17 14:59 Review of Systems ROS Statement: Except As Marked, All Systems Reviewed And Found Negative Constitutional: Positive for: Weakness Gastrointestinal: Positive for: Vomiting, Abdominal Pain Neurological: Positive for: Dizziness Physical Exam - Reviewed Nursing Documentation Reviewed: Yes Vital Signs Reviewed: Yes - Physical Exam Appears: Positive for: In Acute Distress (mild painful distress) Head Exam: Positive for: ATRAUMATIC, NORMOCEPHALIC Skin: Positive for: Warm, Pallor Eye Exam: Positive for: EOMI, Normal appearance, PERRL Neck: Positive for: Normal, Painless ROM Cardiovascular/Chest: Positive for: Regular Rate, Rhythm. Negative for: Murmur Respiratory: Positive for: Normal Breath Sounds. Negative for: Respiratory Distress Gastrointestinal/Abdominal: Positive for: Normal Exam, Soft (with several central midline scars), Tenderness (diffuse). Negative for: Distended Back: Positive for: Normal Inspection Extremity: Positive for: Normal ROM, Other ( AV fistula in dressing presents on left arm) Neurologic/Psych: Positive for: Alert, Oriented. Negative for: Motor/Sensory Deficits - ECG ECG: Positive for: Interpreted By Me, Viewed By Me ECG Rhythm: Positive for: Sinus Rhythm, Right Bundle Branch Block, ST/T Changes Rate: 82 O2 Sat by Pulse Oximetry: 100 (RA) Pulse Ox Interpretation: Normal - Critical Care Total Time (In Min): 45 Comments: pt required immediate bedside attention due to elevated BP and abd pain Medical Decision Making Medical Decision Making: Time: 22:30 Impression: workup for acute abdominal pain Initial Plan: --CT Abd & Pelvis --EKG --Troponin I --CMP --CBC with differentials --Morphine 2 mg IV --Labetalol 10 mg IVP --Zofran ODT 4 mg PO Blood pressure was markedly high. Patient was given Labetalol 10 mg. Renal doctor is Dr. Kingsley Pinto. Time: 23:26 --Zofran ODT 4 mg PO EKG --Sinus at 82 with RBBB, positive ST /T changes but EKG is similar to previous EKGs from July 2017 and February 2017 Scribe Attestation: Documented by Emelyn Eason acting as a scribe for Warren Madrid Attestation: All medical record entries made by the Scribe were at my direction and personally dictated by me. I have reviewed the chart and agree that the record accurately reflects my personal performance of the history, physical exam, medical decision making, and the department course for this patient. I have also personally directed, reviewed, and agree with the discharge instructions and disposition. Disposition - Clinical Impression Clinical Impression: Abdominal discomfort, Vomiting - Patient ED Disposition Is Patient to be Admitted: Transfer of Care - Disposition Disposition: Transfer of Care Disposition Time: 23:55 Condition: STABLE Forms: Parso (Algerian) Patient Signed Over To: Lloyd Grimm
[2017-08-18 00:10] LABS: BASO % 0.3 % (0.0-2.0); EOS # 0.2 K/uL (0.0-0.7); HEMOGLOBIN 11.9 g/dL (12.0-18.0); LYMPH # 1.1 K/uL (1.0-4.3); LYMPH % 8.7 % (20.0-40.0); MEAN CELL VOLUME 82.5 fl (80.0-94.0); MEAN CORPUSCULAR HEMOGLOBIN 27.6 pg (27.0-31.0); MEAN CORPUSCULAR HGB CONC 33.5 g/dL (33.0-37.0); MEAN PLATELET VOLUME 8.6 fl (7.2-11.7); MONO % 8.1 % (0.0-10.0); NEUT % 80.9 % (50.0-75.0); NRBC % 0.1 % (0.0-0.0); PLATELET COUNT 278 K/uL (130-400); RBC 4.31 Mil/uL (4.40-5.90); RED CELL DISTRIBUTION WIDTH 17.1 % (11.5-14.5); WHITE BLOOD COUNT 12.4 K/uL (4.8-10.8)
--- NOTE | 2017-08-18 00:21 | ED PDOC ---
- Laboratory Results Result Diagrams: 08/18/17 09:30 08/18/17 09:30 - ECG O2 Sat by Pulse Oximetry: 100 (RA) Pulse Ox Interpretation: Normal - Critical Care Total Time (In Min): 60 Medical Decision Making Medical Decision Making: Time: 00:00 --Transfer of care endorsed to [place] pending CT, labs and reevaluation. Time: 00:31 --Morphine 4 mg IVP --Labetalol 10 mg IVP --Phenergan Inj 25 mg IVPB Time: 00:59 CT Abdomen Pelvis FINDINGS: Again seen is dialysis catheter in the right atrium. Again seen is bibasilar atelectasis. The liver, spleen, gallbladder and pancreas appear grossly normal on this non- contrast study. Again seen are atrophic calcified [place] kidneys with a renal transplant in the right pelvis. There is marked gastric dilation more pronounced than on prior. The duodenum is dilated with fluid. There are dilated fluid and stool filled small bowel loops proximally measuring up to 4 cm in diameter with nondilated small bowel loops distally. I believe a transition from dilated to nondilated small bowel occurs in the deep left pelvis although it is difficult to say definitively. The lack of intervening fat between dilated loops in the deep pelvis in combination with the lack of both oral and intravenous contrast is limiting. The degree of dilation is concerning for mid small bowel obstruction. There is a moderate amount of stool within the proximal right colon. The transverse colon and descending colon are decompressed. Surgical suture are present within the sigmoid colon. There is a moderate amount of stool within the sigmoid colon. IMPRESSION: Findings as discussed above concerning for mid small bowel obstruction with transition point in the deep left pelvis Time: 01:15 --Phenergan 50 mg IVPB Time: 02:36 --VBG Shock panel --Compazine 10 mg IVP --Dextrose 5% Labetalol IV 1mg/min --admitted to inpatient ICU. Admitting diagnosis is small bowel obstruction, intractable vomiting, and hypertensive urgency. Patient BP extremely labile requiring the drip, will need close monitoring in ICU. --Surgery team will consult on patient Time: 02:42 --Morphine 6 mg IVP --After NGT placement, patient put out 200CC's of gastric contents and is feeling much better, less pain. Scribe Attestation: Documented by Emelyn Eason acting as a scribe for Lloyd Grimm MD. Scribe Attestation: All medical record entries made by the Scribe were at my direction and personally dictated by me. I have reviewed the chart and agree that the record accurately reflects my personal performance of the history, physical exam, medical decision making, and the department course for this patient. I have also personally directed, reviewed, and agree with the discharge instructions and disposition. Disposition - Clinical Impression Clinical Impression: Vomiting, SBO (small bowel obstruction), Hypertensive urgency - POA Present On Arrival: None - Disposition Disposition: Admitted as In-Patient (ICU) Disposition Time: 02:37 Condition: STABLE
[2017-08-18 00:23] LABS: ALB/GLOB RATIO 1.2 (1.0-2.1); ALBUMIN 4.3 g/dL (3.5-5.0); CALCIUM 8.8 mg/dL (8.4-10.2)
[2017-08-18] MEDS ORDERED: Morphine 4 MG/ML VIAL IVP STA ×2 (00:31→02:42)
[2017-08-18] MEDS ORDERED: Labetalol 5 mg/ml Inj 20ML IVP STA (00:31)
[2017-08-18 00:34] LABS: TROPONIN I 0.013 ng/mL (0.00-0.120)
[2017-08-18] MEDS ORDERED: Morphine 4 MG/ML VIAL ONE ×3 (00:35→06:18)
[2017-08-18] MEDS ORDERED: Promethazine 25 MG in Sodium Chloride 0.9% 50 ML IVPB ONE (00:39)
[2017-08-18] MEDS ORDERED: Promethazine 50 MG in Sodium Chloride 0.9% 50 ML IVPB ONE (00:54)
--- NOTE | 2017-08-18 00:59 | CT ---
EXAM: CT Abdomen and Pelvis Without Intravenous Contrast EXAM DATE/TIME: 08/17/2017 10:48 PM CLINICAL HISTORY: 52 years old, male; Pain; Abdominal pain; Generalized; Prior surgery; Surgery date: 6+ months; Surgery type: Appendectomy; Patient HX: See; History; Additional info: HX esrd, acute diffuse abd pain/vomit TECHNIQUE: Axial computed tomography images of the abdomen and pelvis without intravenous contrast. All CT scans at this facility use one or more dose reduction techniques, viz.: automated exposure control; ma/kV adjustment per patient size (including targeted exams where dose is matched to indication; i.e. head); or iterative reconstruction technique. Coronal and sagittal reformatted images were created and reviewed. COMPARISON: CT - ABD PELVIS PO CONTRAST ONLY 2017-03-11 17:22 FINDINGS: Again seen is dialysis catheter in the right atrium. Again seen is bibasilar atelectasis. The liver, spleen, gallbladder and pancreas appear grossly normal on this non-contrast study. Again seen are atrophic calcified [place] kidneys with a renal transplant in the right pelvis. There is marked gastric dilation more pronounced than on prior. The duodenum is dilated with fluid. There are dilated fluid and stool filled small bowel loops proximally measuring up to 4 cm in diameter with nondilated small bowel loops distally. I believe a transition from dilated to nondilated small bowel occurs in the deep left pelvis although it is difficult to say definitively. The lack of intervening fat between dilated loops in the deep pelvis in combination with the lack of both oral and intravenous contrast is limiting. The degree of dilation is concerning for mid small bowel obstruction. There is a moderate amount of stool within the proximal right colon. The transverse colon and descending colon are decompressed. Surgical suture are present within the sigmoid colon. There is a moderate amount of stool within the sigmoid colon. IMPRESSION: Findings as discussed above concerning for mid small bowel obstruction with transition point in the deep left pelvis.
[2017-08-18] MEDS ORDERED: SODIUM CHLORIDE 0.9% IVPB ONE (01:15)
[2017-08-18] MEDS ORDERED: PROMETHAZINE IVPB ONE (01:15)
[2017-08-18] MEDS ORDERED: Labetalol 300 MG in Dextrose 5% In Water 240 ML IV ONE (02:36)
[2017-08-18] MEDS ORDERED: HYDROmorphone 0.5 mg/0.5 ml ISec IVP STA (02:37)
[2017-08-18 02:59] LABS: VENOUS BLOOD GAS BASE EXCESS 8.2 mmol/L (0.0-2.0); VENOUS BLOOD GAS PCO2 44 mmHg (40-60); VENOUS BLOOD GAS PO2 52 mm/Hg (30-55); VENOUS BLOOD PH 7.48 (7.32-7.43)
--- NOTE | 2017-08-18 03:55 | CP.PCM.CON ---
History of Present Illness - History of Present Illness History of Present Illness: PMD: Kelvin Levy MD Weighter: Dr Godfrey Reason for Consult: Critical care Management Chief Complaint: abdominal Pain/Vomiting The patient was seen and examined in theED HPI: The Hx was obtained from the patient's and after review of the medical and radiological records. Mr Appiah is a 52 years old male with hx of DM II, HTN , ESRD on HD and SBO 10 years prior, who presented a sudden unset of severe , continuous diffuse abdominal pain beginning at the end of her HD session shortly before coming to the ED. This is associated with severe vomiting dizziness and generalized weakness. He denies fever, or any symptoms immediately prior to his Dialysis. PMH: Anemia, Anxiety, Arthritis, A Fib, Depression, DM II with Diabetic Neuropathy; Gastritis, GERD; HTN, Hypercholesterolemia, Osteoporosis, Peripheral Edema, ESRD on HD; Cataract, Nephrolithiasis; , Sleep Apnea; Anxiety and Depression; Gout; restless leg syndrome PSH: Appendectomy, Endoscopy; SBO with laparotomy (10 years ago), "removal of some intestine", AV fistula on left arm ; Renal transplant SH: Never smoked; No alcohol use; No illegal drug use; Live with FH: significant for HTN Allergies: Aspirin; Ketorolac; Propoxyphene; Napsylate; Vancomycin Medication: Reviewed Review of Systems - Review of Systems Review of Systems: Review of systems limited because of patients severe abdominal pain - Constitutional Constitutional: Anorexia, Fatigue. absent: Chills, Fever, Headache - EENT Eyes: Requires Corrective Lenses. absent: Diplopia, Floaters Ears: absent: Decreased Hearing, Ear Discharge, Tinnitus Nose/Mouth/Throat: Epistaxis. absent: Nasal Congestion, Sinus Pain, Sinus Pressure - Cardiovascular Cardiovascular: Edema. absent: Chest Pain, Dyspnea - Respiratory Respiratory: absent: Cough, Dyspnea, Wheezing - Gastrointestinal Gastrointestinal: Abdominal Pain, Nausea, Vomiting. absent: Diarrhea - Genitourinary Additional comments: Anuria - Musculoskeletal Musculoskeletal: Myalgias - Integumentary Integumentary: absent: Pruritus, Rash - Neurological Neurological: Restless Legs. absent: Confusion - Psychiatric Psychiatric: Anxiety, Depression - Hematologic/Lymphatic Hematologic: absent: Easy Bleeding, Easy Bruising Past Patient History - Infectious Disease Hx of Infectious Diseases: None - Tetanus Immunizations Tetanus Immunization: Unknown - Past Medical History & Family History Past Medical History?: Yes - Past Social History Smoking Status: Never Smoked Chewing Tobacco Use: No Cigar Use: No Alcohol: None Home Situation {Lives}: With Family - CARDIAC Hx Atrial Fibrillation: Yes Hx Cardia Arrhythmia: Yes Hx Congestive Heart Failure: No Hx Hypercholesterolemia: Yes Hx Hypertension: Yes Hx Peripheral Edema: Yes - PULMONARY Hx Sleep Apnea: Yes - NEUROLOGICAL Hx Neurological Disorder: Yes Other/Comment: Diabetic neuropathy - HEENT Hx HEENT Problems: Yes Hx Cataracts: Yes Hx Epistaxis: Yes Other/Comment: eye glasses - RENAL Hx Chronic Kidney Disease: Yes Hx Kidney Stones: No - ENDOCRINE/METABOLIC Hx Hypothyroidism: No - HEMATOLOGICAL/ONCOLOGICAL Hx Anemia: Yes Hx Human Immunodeficiency Virus (HIV): No - INTEGUMENTARY Hx Dermatological Problems: Yes Hx Cellulitis: Yes - MUSCULOSKELETAL/RHEUMATOLOGICAL Hx Arthritis: Yes Hx Fractures: No Hx Osteoporosis: Yes - GASTROINTESTINAL Hx Gastritis: Yes - GENITOURINARY/GYNECOLOGICAL Hx Genitourinary Disorders: Yes Hx Prostate Problems: Yes Hx Urinary Tract Infection: Yes - PSYCHIATRIC Hx Anxiety: Yes Hx Depression: Yes - SURGICAL HISTORY Hx Appendectomy: Yes Other/Comment: Left arm fistula; Renal transplant; laparotomy for SBO - ANESTHESIA Hx Anesthesia: Yes Hx Anesthesia Reactions: Yes (AWAKE DURING THE SURGERY) Hx Malignant Hyperthermia: No Meds Allergies/Adverse Reactions: Allergies Allergy/AdvReac Type Severity Reaction Status Date / Time aspirin Allergy RASH Verified 08/17/17 22:19 ketorolac [From Toradol] Allergy RASH Verified 05/15/17 14:59 propoxyphene napsylate Allergy RASH Verified 05/15/17 14:59 [From Darvocet-N] vancomycin AdvReac RASH Verified 05/15/17 14:59 - Medications Medications: Current Medications Labetalol HCl 300 mg/ Dextrose 300 mls @ 60 mls/hr IV .Q5H ONE; 1 MG/MIN PRN Reason: Protocol Stop: 08/18/17 07:35 Last Admin: 08/18/17 03:16 Dose: 60 mls/hr Physical Exam - Constitutional Appears: In Acute Distress - Head Exam Head Exam: ATRAUMATIC, NORMAL INSPECTION, NORMOCEPHALIC - Eye Exam Eye Exam: EOMI, Normal appearance Pupil Exam: NORMAL ACCOMODATION, PERRL - ENT Exam ENT Exam: Mucous Membranes Moist, Normal Exam - Neck Exam Neck exam: Positive for: Full Rom, Normal Inspection. Negative for: Lymphadenopathy, Tenderness - Respiratory Exam Respiratory Exam: Clear to Auscultation Bilateral. absent: Rales, Rhonchi, Wheezes - Cardiovascular Exam Cardiovascular Exam: REGULAR RHYTHM, RRR, +S1, +S2 - GI/Abdominal Exam Additional comments: Full, Soft, Decreased bowel sounds, generalized tenderness, no guarding, no rebound. - Rectal Exam Rectal Exam: Deferred - Extremities Exam Extremities exam: Positive for: full ROM, normal inspection. Negative for: joint swelling, pedal edema - Back Exam Back exam: NORMAL INSPECTION. absent: CVA tenderness (L), CVA tenderness (R) - Neurological Exam Neurological exam: Alert, CN II-XII Intact, Oriented x3, Reflexes Normal - Psychiatric Exam Psychiatric exam: Normal Affect, Normal Mood - Skin Skin Exam: Dry, Intact, Normal Color, Warm Results - Vital Signs Recent Vital Signs: Last Vital Signs Temp 99.3 F 08/18/17 02:05 Pulse 91 H 08/18/17 03:47 Resp 16 08/18/17 03:47 BP 185/112 H 08/18/17 03:47 Pulse Ox 99 08/18/17 03:47 - Labs Result Diagrams: 08/18/17 00:05 08/18/17 00:05 Labs: Laboratory Results - last 24 hr 08/17/17 08/18/17 08/18/17 23:04 00:05 00:05 WBC 12.4 H D RBC 4.31 L Hgb 11.9 L D Hct 35.5 MCV 82.5 MCH 27.6 MCHC 33.5 RDW 17.1 H Plt Count 278 MPV 8.6 Neut % (Auto) 80.9 H Lymph % (Auto) 8.7 L [place] % (Auto) 8.1 Eos % (Auto) 2.0 Baso % (Auto) 0.3 Neut # (Auto) 10.0 H Lymph # (Auto) 1.1 [place] # (Auto) 1.0 H Eos # (Auto) 0.2 Baso # (Auto) 0.0 pO2 VBG pH VBG pCO2 VBG HCO3 VBG Total CO2 VBG O2 Sat (Calc) VBG Base Excess VBG Potassium Glucose Lactate FiO2 Sodium 139 Potassium 3.3 L Chloride 91 L Carbon Dioxide 29 Anion Gap 22 H BUN 33 H Creatinine 6.8 H Est GFR ( Amer) 10 Est GFR (Non-Af Amer) 9 POC Glucose (mg/dL) 290 H Random Glucose 316 H Calcium 8.8 Total Bilirubin 0.9 AST 43 ALT 31 Alkaline Phosphatase 210 H Troponin I 0.0130 Total Protein 7.9 Albumin 4.3 Globulin 3.6 Albumin/Globulin Ratio 1.2 Venous Blood Potassium Influenza Typ A,B (EIA) 08/18/17 08/18/17 02:50 02:54 WBC RBC Hgb Hct MCV MCH MCHC RDW Plt Count MPV Neut % (Auto) Lymph % (Auto) [place] % (Auto) Eos % (Auto) Baso % (Auto) Neut # (Auto) Lymph # (Auto) [place]ick # (Auto) Eos # (Auto) Baso # (Auto) pO2 52 VBG pH 7.48 H VBG pCO2 44 VBG HCO3 31.1 VBG Total CO2 34.2 H VBG O2 Sat (Calc) 91.2 H VBG Base Excess 8.2 H VBG Potassium 2.9 L Glucose 372 H Lactate 1.8 FiO2 21.0 Sodium 136.0 Potassium Chloride 96.0 L Carbon Dioxide Anion Gap BUN Creatinine Est GFR ( Amer) Est GFR (Non-Af Amer) POC Glucose (mg/dL) Random Glucose Calcium Total Bilirubin AST ALT Alkaline Phosphatase Troponin I Total Protein Albumin Globulin Albumin/Globulin Ratio Venous Blood Potassium 2.9 L Influenza Typ A,B (EIA) Negative for flu a/b - Imaging and Cardiology CT scan - abdomen Status: Report reviewed by me Additional comment: CT Abdomen Pelvis FINDINGS: Again seen is dialysis catheter in the right atrium. Again seen is bibasilar atelectasis. The liver, spleen, gallbladder and pancreas appear grossly normal on this non- contrast study. Again seen are atrophic calcified [place] kidneys with a renal transplant in the right pelvis. There is marked gastric dilation more pronounced than on prior. The duodenum is dilated with fluid. There are dilated fluid and stool filled small bowel loops proximally measuring up to 4 cm in diameter with nondilated small bowel loops distally. I believe a transition from dilated to nondilated small bowel occurs in the deep left pelvis although it is difficult to say definitively. The lack of intervening fat between dilated loops in the deep pelvis in combination with the lack of both oral and intravenous contrast is limiting. The degree of dilation is concerning for mid small bowel obstruction. There is a moderate amount of stool within the proximal right colon. The transverse colon and descending colon are decompressed. Surgical suture are present within the sigmoid colon. There is a moderate amount of stool within the sigmoid colon. IMPRESSION: Findings as discussed above concerning for mid small bowel obstruction with transition point in the deep left pelvis Chest x-ray Status: Image reviewed by me Additional comment: Poor inspiration Mild congestion Assessment & Plan - Assessment and Plan (Free Text) Assessment: #. SBO #. Intractable Vomiting #. Hypertensive Urgency #. Leukocytosis #. ESRD on HD #. DM wit #. GERD Plan: 52 years old male with hx of DM II, HTN , ESRD on HD and SBO 10 years prior, who presented a sudden unset of severe , continuous diffuse abdominal pain beginning at the end of her HD session shortly before coming to the ED. This is associated with severe vomiting dizziness and generalized weakness. #. SBO - Consult Dr Sher Surgery - NPO - IV fluids - Repeat obstructive series #. Intractable Vomiting due to the SBO - Zofran - NG tube insertion to low intermittent suctioning #. Hypertensive Urgency` - Labetalol Drip titrate to SBP 140-160 and [id number] #. Leukocytosis reactive due to the SBO - Follow WBC #. ESRD on HD - Consult Dr Pinto nephrology #. DM with Hyperglycemia - Regular insulin sliding scale according to Accucheck #. GERD - Pantoprazole #. DVT prophylaxis with SCD #. Code Status: Full - Date & Time Date: 08/18/17 Time: 03:55
[2017-08-18] MEDS ORDERED: Sodium Chloride 0.9% 1,000 ML IV SCH (04:45)
[2017-08-18 05:11] LABS: ANISOCYTOSIS SLIGHT; EOSINOPHIL 2 % (0-7); HYPOCHROMIC SLIGHT; LYMPHOCYTE 18 % (20-50); MONOCYTE 6 % (0-10); NEUTROPHIL 74 % (42-75); PLATELET ESTIMATE NORMAL (NORMAL); TOTAL CELLS COUNTED 100
[2017-08-18 05:12] LABS: ACANTHOCYTES SLIGHT
--- NOTE | 2017-08-18 05:28 | CP.PCM.CON ---
History of Present Illness - History of Present Illness History of Present Illness: 52M PMH of ESRD dialysis MWF, DM, HTN, patient reports abdominal pain s/p dialysis yesterday. States pain is located along lower abdominal region, denies radiation of pain. Reports nausea/vomiting, NGT in place; output 200 cc of bilious fluid. Patient being admitted to ICU for uncontrolled BP. Denies fever/ chills, shortness of breath, chest pain. Denies passing flatus. Last BM was yesterday afternoon. PMH: as stated above PSH: exploratory laparotomy, failed renal transplant x2, failed AVF x7 Allergies: aspirin, ketorolac, propoxyphene napsylate, vanco Review of Systems - Review of Systems Review of Systems: 12pt ROS unremarkable, except as stated in HPI Past Patient History - Infectious Disease Hx of Infectious Diseases: None - Tetanus Immunizations Tetanus Immunization: Unknown - Past Medical History & Family History Past Medical History?: Yes - Past Social History Smoking Status: Never Smoked - CARDIAC Hx Atrial Fibrillation: Yes Hx Cardia Arrhythmia: Yes Hx Congestive Heart Failure: No Hx Hypercholesterolemia: Yes Hx Hypertension: Yes Hx Peripheral Edema: Yes - PULMONARY Hx Sleep Apnea: Yes - NEUROLOGICAL Hx Neurological Disorder: Yes Other/Comment: Diabetic neuropathy - HEENT Hx HEENT Problems: Yes Hx Cataracts: Yes Hx Epistaxis: Yes Other/Comment: eye glasses - RENAL Hx Chronic Kidney Disease: Yes Hx Kidney Stones: No - ENDOCRINE/METABOLIC Hx Hypothyroidism: No - HEMATOLOGICAL/ONCOLOGICAL Hx Anemia: Yes Hx Human Immunodeficiency Virus (HIV): No - INTEGUMENTARY Hx Dermatological Problems: Yes Hx Cellulitis: Yes - MUSCULOSKELETAL/RHEUMATOLOGICAL Hx Arthritis: Yes Hx Fractures: No Hx Osteoporosis: Yes - GASTROINTESTINAL Hx Gastritis: Yes - GENITOURINARY/GYNECOLOGICAL Hx Genitourinary Disorders: Yes Hx Prostate Problems: Yes Hx Urinary Tract Infection: Yes - PSYCHIATRIC Hx Anxiety: Yes Hx Depression: Yes - SURGICAL HISTORY Hx Appendectomy: Yes - ANESTHESIA Hx Anesthesia: Yes Hx Anesthesia Reactions: Yes (AWAKE DURING THE SURGERY) Hx Malignant Hyperthermia: No Meds Allergies/Adverse Reactions: Allergies Allergy/AdvReac Type Severity Reaction Status Date / Time aspirin Allergy RASH Verified 08/17/17 22:19 ketorolac [From Toradol] Allergy RASH Verified 05/15/17 14:59 propoxyphene napsylate Allergy RASH Verified 05/15/17 14:59 [From Darvocet-N] vancomycin AdvReac RASH Verified 05/15/17 14:59 - Medications Medications: Current Medications Labetalol HCl 300 mg/ Dextrose 300 mls @ 60 mls/hr IV .Q5H ONE; 1 MG/MIN PRN Reason: Protocol Stop: 08/18/17 07:35 Last Admin: 08/18/17 03:16 Dose: 60 mls/hr Sodium Chloride (Sodium Chloride 0.9%) 1,000 mls @ 44 mls/hr IV .[id number] PATRIZIA Stop: 08/19/17 04:44 Insulin Human Regular (Humulin R) 0 units SC Q6H PATRIZIA PRN Reason: Protocol Morphine Sulfate (Morphine) 6 mg IVP Q4 PRN PRN Reason: Pain, severe (8-10) Morphine Sulfate (Morphine) 4 mg IVP Q4 PRN PRN Reason: Pain, moderate (4-7) Ondansetron HCl (Zofran Inj) 4 mg IVP Q4 PRN PRN Reason: Nausea/Vomiting Physical Exam - Constitutional Appears: No Acute Distress - Head Exam Head Exam: NORMOCEPHALIC - Eye Exam Eye Exam: EOMI, Normal appearance - ENT Exam ENT Exam: Mucous Membranes Moist - Respiratory Exam Respiratory Exam: NORMAL BREATHING PATTERN - Cardiovascular Exam Cardiovascular Exam: +S1, +S2 - GI/Abdominal Exam GI & Abdominal Exam: Soft, Tenderness. absent: Distended, Firm, Guarding, Rigid - Neurological Exam Neurological exam: Alert, Oriented x3 - Psychiatric Exam Psychiatric exam: Normal Mood - Skin Skin Exam: Dry, Intact, Warm Results - Vital Signs Recent Vital Signs: Last Vital Signs Temp 99.3 F 08/18/17 02:05 Pulse 89 08/18/17 04:31 Resp 14 08/18/17 04:31 BP 150/85 08/18/17 04:31 Pulse Ox 95 08/18/17 04:31 - Labs Result Diagrams: 08/18/17 00:05 08/18/17 00:05 Labs: Laboratory Results - last 24 hr 08/17/17 08/18/17 08/18/17 23:04 00:05 00:05 WBC 12.4 H D RBC 4.31 L Hgb 11.9 L D Hct 35.5 MCV 82.5 MCH 27.6 MCHC 33.5 RDW 17.1 H Plt Count 278 MPV 8.6 Neut % (Auto) 80.9 H Lymph % (Auto) 8.7 L [place] % (Auto) 8.1 Eos % (Auto) 2.0 Baso % (Auto) 0.3 Neut # (Auto) 10.0 H Lymph # (Auto) 1.1 [place] # (Auto) 1.0 H Eos # (Auto) 0.2 Baso # (Auto) 0.0 Neutrophils % (Manual) 74 Lymphocytes % (Manual) 18 L Monocytes % (Manual) 6 Eosinophils % (Manual) 2 Platelet Estimate Normal Hypochromasia (manual) Slight Anisocytosis (manual) Slight Acanthocytes (Spur) Slight pO2 VBG pH VBG pCO2 VBG HCO3 VBG Total CO2 VBG O2 Sat (Calc) VBG Base Excess VBG Potassium Glucose Lactate FiO2 Sodium 139 Potassium 3.3 L Chloride 91 L Carbon Dioxide 29 Anion Gap 22 H BUN 33 H Creatinine 6.8 H Est GFR ( Amer) 10 Est GFR (Non-Af Amer) 9 POC Glucose (mg/dL) 290 H Random Glucose 316 H Calcium 8.8 Total Bilirubin 0.9 AST 43 ALT 31 Alkaline Phosphatase 210 H Troponin I 0.0130 Total Protein 7.9 Albumin 4.3 Globulin 3.6 Albumin/Globulin Ratio 1.2 Venous Blood Potassium Influenza Typ A,B (EIA) 08/18/17 08/18/17 02:50 02:54 WBC RBC Hgb Hct MCV MCH MCHC RDW Plt Count MPV Neut % (Auto) Lymph % (Auto) [place] % (Auto) Eos % (Auto) Baso % (Auto) Neut # (Auto) Lymph # (Auto) [place] # (Auto) Eos # (Auto) Baso # (Auto) Neutrophils % (Manual) Lymphocytes % (Manual) Monocytes % (Manual) Eosinophils % (Manual) Platelet Estimate Hypochromasia (manual) Anisocytosis (manual) Acanthocytes (Spur) pO2 52 VBG pH 7.48 H VBG pCO2 44 VBG HCO3 31.1 VBG Total CO2 34.2 H VBG O2 Sat (Calc) 91.2 H VBG Base Excess 8.2 H VBG Potassium 2.9 L Glucose 372 H Lactate 1.8 FiO2 21.0 Sodium 136.0 Potassium Chloride 96.0 L Carbon Dioxide Anion Gap BUN Creatinine Est GFR ( Amer) Est GFR (Non-Af Amer) POC Glucose (mg/dL) Random Glucose Calcium Total Bilirubin AST ALT Alkaline Phosphatase Troponin I Total Protein Albumin Globulin Albumin/Globulin Ratio Venous Blood Potassium 2.9 L Influenza Typ A,B (EIA) Negative for flu a/b Assessment & Plan - Assessment and Plan (Free Text) Assessment: 52M w. SBO Plan: Conservative management NPO IVF analgesic DVT ppx Medical management per ICU team Further recs per Dr. Christos Culver PGY2
--- NOTE | 2017-08-18 09:33 | RAD ---
HISTORY: Abdominal pain; vomiting. COMPARISON: Comparison made with chest radiograph 07/05/2017 FINDINGS: Re- demonstrated is a left-sided dialysis catheter with tip in the SVC. Multiple endovascular stent grafts again seen right subclavian region. In situ NGT, tip of which overlies left upper quadrant of the abdomen. LUNGS: Central pulmonary vasculature is slightly increased ; rule out mild chronic compensated pulmonary edema or fluid overload. Mild bibasilar atelectasis PLEURA: No significant pleural effusion identified, no pneumothorax apparent. CARDIOVASCULAR: Heart size mildly enlarged OSSEOUS STRUCTURES: No significant abnormalities. VISUALIZED UPPER ABDOMEN: Normal. OTHER FINDINGS: None. IMPRESSION: Central pulmonary vasculature is slightly increased ; rule out mild chronic compensated pulmonary edema or fluid overload. Mild bibasilar atelectasis
--- NOTE | 2017-08-18 09:41 | RAD ---
PROCEDURE: Radiographs of the chest and abdomen (obstructive series) HISTORY: Follow-up SBO COMPARISON: Comparison made with CT abdomen pelvis 08/17/2017 TECHNIQUE: AP radiograph of the chest, with upright and supine radiographs of the abdomen. FINDINGS: In situ NGT tip of which overlies left upper quadrant of the abdomen. CHEST: In situ left-sided dialysis catheter and right-sided endovascular stent grafts unchanged. In situ NGT tip of which overlies left upper quadrant of the abdomen. Mild increased central pulmonary vascularity possibly due to mild chronic compensated pulmonary edema worse fluid overload. Mild bibasilar atelectasis. ABDOMEN AND PELVIS: No gross free intraperitoneal air. Nonobstructive/nonspecific bowel gas pattern. Re- demonstrated are multiple metallic clips in the right lower abdomen and left lateral pelvis. IMPRESSION: Mild increased central pulmonary vasculature with bibasilar atelectasis. No evidence of acute mechanical bowel obstruction seen at this time.
[2017-08-18 10:21] LABS: BASO % 0.3 % (0.0-2.0); EOS # 0.2 K/uL (0.0-0.7); EOS % 1.1 % (0.0-4.0); HEMOGLOBIN 12.2 g/dL (12.0-18.0); LYMPH # 0.8 K/uL (1.0-4.3); LYMPH % 5.9 % (20.0-40.0); MEAN CELL VOLUME 82.7 fl (80.0-94.0); MEAN CORPUSCULAR HEMOGLOBIN 27.2 pg (27.0-31.0); MEAN CORPUSCULAR HGB CONC 32.9 g/dL (33.0-37.0); MEAN PLATELET VOLUME 7.8 fl (7.2-11.7); MONO # 1.4 K/uL (0.0-0.8); MONO % 10.8 % (0.0-10.0); NEUT # 10.8 K/uL (1.8-7.0); NEUT % 81.9 % (50.0-75.0); NRBC % 0.1 % (0.0-0.0); RBC 4.5 Mil/uL (4.40-5.90); RED CELL DISTRIBUTION WIDTH 16.6 % (11.5-14.5); WHITE BLOOD COUNT 13.2 K/uL (4.8-10.8)
[2017-08-18 10:42] LABS: CALCIUM 8.7 mg/dL (8.4-10.2)
--- NOTE | 2017-08-18 11:01 | CP.CCUPN ---
CCU Subjective - Physician Review Subjective (Free Text): Awake, alert and appropriately responsive. NGT in, on LIS, was on Labetalol drip in ER at 2 mg/hr, now off with BP 170/88, HR 85. Denies any new abdominal pain, nausea, headaches, and dizziness, no CP or SOB. Had completed usual course of HD as outpatient yesterday before presenting to ER with abdominal complaints. Other VS and I/Os reviewed. ROS: No other pertinent negs or positives on 10+ system review. PMSFH: All other Nursing and physician documentation reviewed to date; no new pertinent info noted relevant to current medical problems. EXAM- HEENT: no icterus, no gaze preference, pupils equal and reactive, no icterus NECK: No JVD, supple, carotids equal upstroke bilat/no bruits, trach stoma intact. CHEST: decreased BS bases, no wheezes audible HEART: regular distant, tachy S1S2, no rubs. ABD: soft, no distention, no tympany, no palp tenderness, BS hypoactive. EXT: trace edema bilat. No peripheral/ digital cyanosis, no calf tenderness or palpable cords, distal pulses intact and symmetrical. RLE TMA. LUE AVF with good bruit and thrill. NEURO: diminished tone all extremities SKIN: no rashes, warm and dry. AXR / CXR: ( my interps): clear lung cedeño; nonspecific bowel pattern, no A/F levels, no free air. EKG: ( my interp)- sinus with PACs 80/min. No acute ischemic changes. LABS: WBC= 13.2 HGB= 12.2 PLTs= 265K 7.48/44/52 VBG 91% satn Lactate= 1.8 Na= 139 K= 3.1 HCO3-= 30 CL= 89 BUN/Cr= 41/8.5 BS= 269 IMPRESSION / MAJOR PROBLEMS NOW: 1. Accelerated HTN, no severe sequelae 2. SBO 3. Dehydration 4. ESRD on HD, Hypokalemia PLAN: 1. Could stop IV Labetalol drip, resume PO meds if feasible. If not, convert PO antihypertensive meds to IV administration if possible if NPO status remains. 2. Cautious IVF hydration. One 10meq KCL dose for now unless more ordered as per Electronic Scale Subassembler. 3. Surgical team eval. 4. Stable for further mgmt and observation on Telemetry unit. CCU Objective - Vital Signs / Intake & Output Vital Signs (Last 4 hours): Vital Signs Temp Pulse Resp BP Pulse Ox 08/18/17 10:03 84 17 162/100 H 100 08/18/17 09:22 84 16 163/102 H 97 08/18/17 09:13 98.5 F 83 16 154/96 H 08/18/17 08:42 98.5 F 83 16 154/96 H 97 08/18/17 08:28 83 19 167/83 H 96 08/18/17 08:26 82 18 167/83 H 98 08/18/17 08:12 84 14 173/102 H 97 08/18/17 08:01 82 15 180/110 H 98 08/18/17 07:57 83 17 183/101 H 98 08/18/17 07:41 83 15 178/96 H 98 08/18/17 07:37 88 17 176/93 H 96 08/18/17 07:12 87 15 181/100 H 97 Intake and Output (Last 8hrs): Intake & Output 08/17/17 08/18/17 08/18/17 22:59 06:59 14:59 Weight 185 lb 3.013 oz - Medications Active Medications: Active Medications Generic Name Dose Route Start Last Admin Trade Name Freq PRN Reason Stop Dose Admin Sodium Chloride 1,000 mls @ 44 mls/hr 08/18/17 04:45 08/18/17 10:19 Sodium Chloride 0.9% IV 08/19/17 04:44 44 mls/hr .[id number] PATRIZIA Administration Insulin Human Regular 0 units 08/18/17 04:45 Humulin R SC Q6H [facility] Protocol Morphine Sulfate 6 mg 08/18/17 04:40 08/18/17 06:22 Morphine IVP 6 mg Q4 PRN Administration Pain, severe (8-10) Morphine Sulfate 4 mg 08/18/17 04:41 Morphine IVP Q4 PRN Pain, moderate (4-7) Ondansetron HCl 4 mg 08/18/17 04:39 Zofran Inj IVP Q4 PRN Nausea/Vomiting Pantoprazole Sodium 40 mg 08/18/17 09:00 08/18/17 10:24 Protonix Inj IVP 40 mg DAILY PATRIZIA Administration - Patient Studies Lab Studies: Lab Studies 08/18/17 08/18/17 08/18/17 Range/Units 09:30 09:30 06:12 WBC 13.2 H (4.8-10.8) K/uL RBC 4.50 (4.40-5.90) Mil/uL Hgb 12.2 (12.0-18.0) g/dL Hct 37.2 (35.0-51.0) % MCV 82.7 (80.0-94.0) fl MCH 27.2 (27.0-31.0) pg MCHC 32.9 L (33.0-37.0) g/dL RDW 16.6 H (11.5-14.5) % Plt Count 265 (130-400) K/uL MPV 7.8 (7.2-11.7) fl Neut % (Auto) 81.9 H (50.0-75.0) % Lymph % (Auto) 5.9 L (20.0-40.0) % [place] % (Auto) 10.8 H (0.0-10.0) % Eos % (Auto) 1.1 (0.0-4.0) % Baso % (Auto) 0.3 (0.0-2.0) % Neut # (Auto) 10.8 H (1.8-7.0) K/uL Lymph # (Auto) 0.8 L (1.0-4.3) K/uL [place] # (Auto) 1.4 H (0.0-0.8) K/uL Eos # (Auto) 0.2 (0.0-0.7) K/uL Baso # (Auto) 0.0 (0.0-0.2) K/uL Neutrophils % (Manual) (42-75) % Lymphocytes % (Manual) (20-50) % Monocytes % (Manual) (0-10) % Eosinophils % (Manual) (0-7) % Platelet Estimate (NORMAL) Hypochromasia (manual) Anisocytosis (manual) Acanthocytes (Spur) pO2 (30-55) mm/Hg VBG pH (7.32-7.43) VBG pCO2 (40-60) mmHg VBG HCO3 mmol/L VBG Total CO2 (22-28) mmol/L VBG O2 Sat (Calc) (40-65) % VBG Base Excess (0.0-2.0) mmol/L VBG Potassium (3.6-5.2) mmol/L Glucose (75-110) mg/dL Lactate (0.7-2.1) mmol/L FiO2 % Sodium 139 (132-148) mmol/l Potassium 3.1 L (3.6-5.0) MMOL/L Chloride 89 L (98-107) mmol/L Carbon Dioxide 30 (22-30) mmol/L Anion Gap 23 H (10-20) BUN 41 H (9-20) mg/dl Creatinine 8.5 H* D (0.8-1.5) mg/dl Est GFR ( Amer) 8 Est GFR (Non-Af Amer) 7 POC Glucose (mg/dL) 250 H (65-110) mg/dL Random Glucose 269 H (75-110) mg/dL Calcium 8.7 (8.4-10.2) mg/dL Total Bilirubin (0.2-1.3) mg/dl AST (17-59) U/L ALT (21-72) U/L Alkaline Phosphatase (38-126) U/L Troponin I (0.00-0.120) ng/mL Total Protein (6.3-8.2) G/DL Albumin (3.5-5.0) g/dL Globulin (2.2-3.9) gm/dL Albumin/Globulin Ratio (1.0-2.1) Venous Blood Potassium (3.6-5.2) mmol/L Influenza Typ A,B (EIA) (NEGATIVE) 08/18/17 08/18/17 08/18/17 Range/Units 02:54 02:50 00:05 WBC (4.8-10.8) K/uL RBC (4.40-5.90) Mil/uL Hgb (12.0-18.0) g/dL Hct (35.0-51.0) % MCV (80.0-94.0) fl MCH (27.0-31.0) pg MCHC (33.0-37.0) g/dL RDW (11.5-14.5) % Plt Count (130-400) K/uL MPV (7.2-11.7) fl Neut % (Auto) (50.0-75.0) % Lymph % (Auto) (20.0-40.0) % [place] % (Auto) (0.0-10.0) % Eos % (Auto) (0.0-4.0) % Baso % (Auto) (0.0-2.0) % Neut # (Auto) (1.8-7.0) K/uL Lymph # (Auto) (1.0-4.3) K/uL [place] # (Auto) (0.0-0.8) K/uL Eos # (Auto) (0.0-0.7) K/uL Baso # (Auto) (0.0-0.2) K/uL Neutrophils % (Manual) (42-75) % Lymphocytes % (Manual) (20-50) % Monocytes % (Manual) (0-10) % Eosinophils % (Manual) (0-7) % Platelet Estimate (NORMAL) Hypochromasia (manual) Anisocytosis (manual) Acanthocytes (Spur) pO2 52 (30-55) mm/Hg VBG pH 7.48 H (7.32-7.43) VBG pCO2 44 (40-60) mmHg VBG HCO3 31.1 mmol/L VBG Total CO2 34.2 H (22-28) mmol/L VBG O2 Sat (Calc) 91.2 H (40-65) % VBG Base Excess 8.2 H (0.0-2.0) mmol/L VBG Potassium 2.9 L (3.6-5.2) mmol/L Glucose 372 H (75-110) mg/dL Lactate 1.8 (0.7-2.1) mmol/L FiO2 21.0 % Sodium 136.0 139 (132-148) mmol/l Potassium 3.3 L (3.6-5.0) MMOL/L Chloride 96.0 L 91 L (98-107) mmol/L Carbon Dioxide 29 (22-30) mmol/L Anion Gap 22 H (10-20) BUN 33 H (9-20) mg/dl Creatinine 6.8 H (0.8-1.5) mg/dl Est GFR ( Amer) 10 Est GFR (Non-Af Amer) 9 POC Glucose (mg/dL) (65-110) mg/dL Random Glucose 316 H (75-110) mg/dL Calcium 8.8 (8.4-10.2) mg/dL Total Bilirubin 0.9 (0.2-1.3) mg/dl AST 43 (17-59) U/L ALT 31 (21-72) U/L Alkaline Phosphatase 210 H (38-126) U/L Troponin I 0.0130 (0.00-0.120) ng/mL Total Protein 7.9 (6.3-8.2) G/DL Albumin 4.3 (3.5-5.0) g/dL Globulin 3.6 (2.2-3.9) gm/dL Albumin/Globulin Ratio 1.2 (1.0-2.1) Venous Blood Potassium 2.9 L (3.6-5.2) mmol/L Influenza Typ A,B (EIA) Negative for flu a/b (NEGATIVE) 08/18/17 08/17/17 Range/Units 00:05 23:04 WBC 12.4 H D (4.8-10.8) K/uL RBC 4.31 L (4.40-5.90) Mil/uL Hgb 11.9 L D (12.0-18.0) g/dL Hct 35.5 (35.0-51.0) % MCV 82.5 (80.0-94.0) fl MCH 27.6 (27.0-31.0) pg MCHC 33.5 (33.0-37.0) g/dL RDW 17.1 H (11.5-14.5) % Plt Count 278 (130-400) K/uL MPV 8.6 (7.2-11.7) fl Neut % (Auto) 80.9 H (50.0-75.0) % Lymph % (Auto) 8.7 L (20.0-40.0) % [place] % (Auto) 8.1 (0.0-10.0) % Eos % (Auto) 2.0 (0.0-4.0) % Baso % (Auto) 0.3 (0.0-2.0) % Neut # (Auto) 10.0 H (1.8-7.0) K/uL Lymph # (Auto) 1.1 (1.0-4.3) K/uL [place] # (Auto) 1.0 H (0.0-0.8) K/uL Eos # (Auto) 0.2 (0.0-0.7) K/uL Baso # (Auto) 0.0 (0.0-0.2) K/uL Neutrophils % (Manual) 74 (42-75) % Lymphocytes % (Manual) 18 L (20-50) % Monocytes % (Manual) 6 (0-10) % Eosinophils % (Manual) 2 (0-7) % Platelet Estimate Normal (NORMAL) Hypochromasia (manual) Slight Anisocytosis (manual) Slight Acanthocytes (Spur) Slight pO2 (30-55) mm/Hg VBG pH (7.32-7.43) VBG pCO2 (40-60) mmHg VBG HCO3 mmol/L VBG Total CO2 (22-28) mmol/L VBG O2 Sat (Calc) (40-65) % VBG Base Excess (0.0-2.0) mmol/L VBG Potassium (3.6-5.2) mmol/L Glucose (75-110) mg/dL Lactate (0.7-2.1) mmol/L FiO2 % Sodium (132-148) mmol/l Potassium (3.6-5.0) MMOL/L Chloride (98-107) mmol/L Carbon Dioxide (22-30) mmol/L Anion Gap (10-20) BUN (9-20) mg/dl Creatinine (0.8-1.5) mg/dl Est GFR ( Amer) Est GFR (Non-Af Amer) POC Glucose (mg/dL) 290 H (65-110) mg/dL Random Glucose (75-110) mg/dL Calcium (8.4-10.2) mg/dL Total Bilirubin (0.2-1.3) mg/dl AST (17-59) U/L ALT (21-72) U/L Alkaline Phosphatase (38-126) U/L Troponin I (0.00-0.120) ng/mL Total Protein (6.3-8.2) G/DL Albumin (3.5-5.0) g/dL Globulin (2.2-3.9) gm/dL Albumin/Globulin Ratio (1.0-2.1) Venous Blood Potassium (3.6-5.2) mmol/L Influenza Typ A,B (EIA) (NEGATIVE) Laboratory Results - last 24 hr 08/17/17 08/18/17 08/18/17 23:04 00:05 00:05 WBC 12.4 H D RBC 4.31 L Hgb 11.9 L D Hct 35.5 MCV 82.5 MCH 27.6 MCHC 33.5 RDW 17.1 H Plt Count 278 MPV 8.6 Neut % (Auto) 80.9 H Lymph % (Auto) 8.7 L [place] % (Auto) 8.1 Eos % (Auto) 2.0 Baso % (Auto) 0.3 Neut # (Auto) 10.0 H Lymph # (Auto) 1.1 [place] # (Auto) 1.0 H Eos # (Auto) 0.2 Baso # (Auto) 0.0 Neutrophils % (Manual) 74 Lymphocytes % (Manual) 18 L Monocytes % (Manual) 6 Eosinophils % (Manual) 2 Platelet Estimate Normal Hypochromasia (manual) Slight Anisocytosis (manual) Slight Acanthocytes (Spur) Slight pO2 VBG pH VBG pCO2 VBG HCO3 VBG Total CO2 VBG O2 Sat (Calc) VBG Base Excess VBG Potassium Glucose Lactate FiO2 Sodium 139 Potassium 3.3 L Chloride 91 L Carbon Dioxide 29 Anion Gap 22 H BUN 33 H Creatinine 6.8 H Est GFR ( Amer) 10 Est GFR (Non-Af Amer) 9 POC Glucose (mg/dL) 290 H Random Glucose 316 H Calcium 8.8 Total Bilirubin 0.9 AST 43 ALT 31 Alkaline Phosphatase 210 H Troponin I 0.0130 Total Protein 7.9 Albumin 4.3 Globulin 3.6 Albumin/Globulin Ratio 1.2 Venous Blood Potassium Influenza Typ A,B (EIA) 08/18/17 08/18/17 08/18/17 02:50 02:54 06:12 WBC RBC Hgb Hct MCV MCH MCHC RDW Plt Count MPV Neut % (Auto) Lymph % (Auto) [place] % (Auto) Eos % (Auto) Baso % (Auto) Neut # (Auto) Lymph # (Auto) [place] # (Auto) Eos # (Auto) Baso # (Auto) Neutrophils % (Manual) Lymphocytes % (Manual) Monocytes % (Manual) Eosinophils % (Manual) Platelet Estimate Hypochromasia (manual) Anisocytosis (manual) Acanthocytes (Spur) pO2 52 VBG pH 7.48 H VBG pCO2 44 VBG HCO3 31.1 VBG Total CO2 34.2 H VBG O2 Sat (Calc) 91.2 H VBG Base Excess 8.2 H VBG Potassium 2.9 L Glucose 372 H Lactate 1.8 FiO2 21.0 Sodium 136.0 Potassium Chloride 96.0 L Carbon Dioxide Anion Gap BUN Creatinine Est GFR ( Amer) Est GFR (Non-Af Amer) POC Glucose (mg/dL) 250 H Random Glucose Calcium Total Bilirubin AST ALT Alkaline Phosphatase Troponin I Total Protein Albumin Globulin Albumin/Globulin Ratio Venous Blood Potassium 2.9 L Influenza Typ A,B (EIA) Negative for flu a/b 08/18/17 08/18/17 09:30 09:30 WBC 13.2 H RBC 4.50 Hgb 12.2 Hct 37.2 MCV 82.7 MCH 27.2 MCHC 32.9 L RDW 16.6 H Plt Count 265 MPV 7.8 Neut % (Auto) 81.9 H Lymph % (Auto) 5.9 L [place] % (Auto) 10.8 H Eos % (Auto) 1.1 Baso % (Auto) 0.3 Neut # (Auto) 10.8 H Lymph # (Auto) 0.8 L [place] # (Auto) 1.4 H Eos # (Auto) 0.2 Baso # (Auto) 0.0 Neutrophils % (Manual) Lymphocytes % (Manual) Monocytes % (Manual) Eosinophils % (Manual) Platelet Estimate Hypochromasia (manual) Anisocytosis (manual) Acanthocytes (Spur) pO2 VBG pH VBG pCO2 VBG HCO3 VBG Total CO2 VBG O2 Sat (Calc) VBG Base Excess VBG Potassium Glucose Lactate FiO2 Sodium 139 Potassium 3.1 L Chloride 89 L Carbon Dioxide 30 Anion Gap 23 H BUN 41 H Creatinine 8.5 H* D Est GFR ( Amer) 8 Est GFR (Non-Af Amer) 7 POC Glucose (mg/dL) Random Glucose 269 H Calcium 8.7 Total Bilirubin AST ALT Alkaline Phosphatase Troponin I Total Protein Albumin Globulin Albumin/Globulin Ratio Venous Blood Potassium Influenza Typ A,B (EIA) EKG/Cardiology Studies: Cardiology / EKG Studies 08/17/17 22:41 ELECTROCARDIOGRAM Stat Comment: Mode Of Transportation: Reason For Exam: SOB Fingerstick Blood Sugar Results: 250 Critical Care Progress Note - Nutrition Nutrition: Nutrition Category Date Time Status NPO Diet [DIET] Diets 08/18/17 Breakfast Active
[2017-08-18] MEDS: Morphine 4 MG/ML VIAL IVP PRN ×3 (11:02→20:53)
[2017-08-18] MEDS ORDERED: Potassium Chloride 20 mEq 50 ML IVPB ONE (11:03)
[2017-08-18] MEDS ORDERED: Dextrose 5%/0.45% NS 1,000 ML IV SCH (11:15)
[2017-08-18] MEDS: Insulin Regular 100 units/ml SC SCH ×3 (12:10→21:35)
--- NOTE | 2017-08-18 19:10 | CP.PCM.CON ---
History of Present Illness - History of Present Illness History of Present Illness: REASONS FOR CONSULT : ESRD ON HD M W F RECIEVED CONTRAST LAST NIGHT FOR CT ABDO ANEMIA OF CKD .. H/H STABLE ELECTROLYTES ABN .. HYPOKALEMIA ALL EMR REVIEWED .. LABS REVIEWED .. PT WAS SEEN AND EXAMINED ON HD IN ICU .. PT IS WELL KNOWN TO ME SINCE THE LAST CENTURY .. HPI: Abdomen Time Seen by Provider: 08/17/17 22:30 Chief Complaint (Nursing): Abdominal Pain Chief Complaint (Provider): Abdominal Pain History Per: Patient History/Exam Limitations: no limitations Onset/Duration Of Symptoms: Mins (prior to arrival) Current Symptoms Are (Timing): Still Present Location Of Pain/Discomfort: Diffuse Quality Of Discomfort: "Pain" Associated Symptoms: Vomiting Additional Complaint(s): 52 year old male with a history of end stage renal disease presents to the ED complaining of diffuse abdominal pain and intractable vomiting after dialysis treatment today. Patient has been on dialysis since 2013. Today before arrival to the ED, he had 4 hours of dialysis treatment. Once treatment was over, patient began feeling the abdominal pain and vomiting along with weakness and dizziness. He reports a SBO 10 years ago as well as a laparatomy with the "removal of some intestine". Patient states he moves bowels regularly but does not urinate due to dialysis. Denies a recent history of any similar or related symptoms. PMD: Dr. Mildred Warren MD Past Medical History Reviewed: Historical Data, Nursing Documentation, Vital Signs Vital Signs: Last Vital Signs Temp 98.8 F 08/17/17 23:55 Pulse 82 08/18/17 00:02 Resp 15 08/17/17 23:55 BP 165/114 H 08/17/17 23:55 Pulse Ox 100 08/18/17 00:02 - Medical History PMH: Anemia, Anxiety, Arthritis, Atrial Fibrillation, Cardia Arrhythmia, Depression, Diabetes (type II), Gastritis, GERD, HTN, Hypercholesterolemia, Osteoporosis, Peripheral Edema, End Stage Renal Disease, Chronic Kidney Disease , Sleep Apnea Denies: CHF, Fractures, HIV, Hypothyroidism, Kidney Stones - Surgical History Surgical History: Appendectomy, Endoscopy Other surgeries: laparotomy (10 years ago), "removal of some intestine", AV fistula on left arm (last month) - Family History Family History: States: Unknown Family Hx, Hypertension - Home Medications Home Medications: Ambulatory Orders Medication Instructions Recorded Acetaminophen/Oxycodone Hydr 1 tab PO Q6H PRN 05/24/16 [Percocet 10/325 mg Tab] Febuxostat [Uloric] 40 mg PO DAILY 05/24/16 Megestrol Acetate [Megace] 5 ml PO Q6H 05/24/16 Sevelamer Carbonate [Renvela] 2,400 mg PO TID 05/24/16 PARoxetine [Paxil] 10 mg PO DAILY 07/19/16 Apixaban [Eliquis] 2.5 mg PO Q12 12/24/16 Tamsulosin [Flomax] 0.4 mg PO DAILY 12/24/16 Alprazolam [Xanax] 0.5 mg PO TID PRN 05/15/17 Alprazolam [Xanax] 0.5 mg PO HS #7 tab 07/05/17 Atorvastatin [Lipitor] 40 mg PO HS 07/05/17 Digoxin [Digitek] 125 mcg PO MWF 07/05/17 Folic Acid/Vit B Complex and C 1 tab PO DAILY 07/05/17 [Renal Vitamin Tablet] Insulin Aspart, Recombinant 5 unit SC ACTID 07/05/17 [Novolog] Insulin Glargine, Recombina 50 unit SC HS 07/05/17 [Lantus] Labetalol [Trandate] 200 mg PO Q8 07/05/17 Lactulose [Generlac] 15 mg PO HS 07/05/17 Linaclotide [Linzess] 145 mcg PO DAILY PRN 07/05/17 Lisinopril [Zestril] 5 mg PO DAILY 07/05/17 Minoxidil [Minoxidil] 2.5 mg PO Q12 07/05/17 Marked Tree-3 Fatty Acids [Marked Tree-3] 1,000 mg PO Q12 07/05/17 Pantoprazole Sodium [Protonix] 40 mg PO DAILY 07/05/17 Ticagrelor [Brilinta] 90 mg PO Q12 07/05/17 Verapamil HCl [Verapamil Sr] 120 mg PO DAILY 07/05/17 cycloSPORINE [Restasis] 1 drop EACHEYE Q12 07/05/17 - Allergies Allergies/Adverse Reactions: Allergies Allergy/AdvReac Type Severity Reaction Status Date / Time aspirin Allergy RASH Verified 08/17/17 22:19 ketorolac [From Toradol] Allergy RASH Verified 05/15/17 14:59 propoxyphene napsylate Allergy RASH Verified 05/15/17 14:59 [From Darvocet-N] vancomycin AdvReac RASH Verified 05/15/17 14:59 Review of Systems ROS Statement: Except As Marked, All Systems Reviewed And Found Negative Constitutional: Positive for: Weakness Gastrointestinal: Positive for: Vomiting, Abdominal Pain Neurological: Positive for: Dizziness Physical Exam - Reviewed Nursing Documentation Reviewed: Yes Vital Signs Reviewed: Yes - Physical Exam Appears: Positive for: In Acute Distress (mild painful distress) Head Exam: Positive for: ATRAUMATIC, NORMOCEPHALIC Skin: Positive for: Warm, Pallor Eye Exam: Positive for: EOMI, Normal appearance, PERRL Neck: Positive for: Normal, Painless ROM Cardiovascular/Chest: Positive for: Regular Rate, Rhythm. Negative for: Murmur Respiratory: Positive for: Normal Breath Sounds. Negative for: Respiratory Distress Gastrointestinal/Abdominal: Positive for: Normal Exam, Soft (with several central midline scars), Tenderness (diffuse). Negative for: Distended Back: Positive for: Normal Inspection Extremity: Positive for: Normal ROM, Other ( AV fistula in dressing presents on left arm) Neurologic/Psych: Positive for: Alert, Oriented. Negative for: Motor/Sensory Deficits Past Patient History - Infectious Disease Hx of Infectious Diseases: None - Tetanus Immunizations Tetanus Immunization: Unknown - Past Medical History & Family History Past Medical History?: Yes - Past Social History Smoking Status: Never Smoked - CARDIAC Hx Cardiac Disorders: Yes Hx Atrial Fibrillation: Yes Hx Hypertension: Yes - PULMONARY Hx Respiratory Disorders: No - NEUROLOGICAL Hx Neurological Disorder: Yes - HEENT Hx HEENT Problems: Yes - RENAL Hx Chronic Kidney Disease: Yes - ENDOCRINE/METABOLIC Hx Endocrine Disorders: No Hx Hypothyroidism: No - HEMATOLOGICAL/ONCOLOGICAL Hx AIDS: No Hx Anemia: Yes Hx Human Immunodeficiency Virus (HIV): No - INTEGUMENTARY Hx Dermatological Problems: Yes - MUSCULOSKELETAL/RHEUMATOLOGICAL Hx Arthritis: Yes Hx Falls: No Hx Fractures: No Hx Osteoporosis: Yes - GASTROINTESTINAL Hx Gastritis: Yes - GENITOURINARY/GYNECOLOGICAL Hx Genitourinary Disorders: Yes - PSYCHIATRIC Hx Anxiety: Yes Hx Depression: Yes Hx Substance Use: No - SURGICAL HISTORY Hx Appendectomy: Yes - ANESTHESIA Hx Anesthesia: Yes Hx Anesthesia Reactions: Yes (AWAKE DURING THE SURGERY) Hx Malignant Hyperthermia: No Meds Allergies/Adverse Reactions: Allergies Allergy/AdvReac Type Severity Reaction Status Date / Time aspirin Allergy RASH Verified 08/17/17 22:19 ketorolac [From Toradol] Allergy RASH Verified 05/15/17 14:59 propoxyphene napsylate Allergy RASH Verified 05/15/17 14:59 [From Darvocet-N] vancomycin AdvReac RASH Verified 05/15/17 14:59 - Medications Medications: Current Medications Insulin Human Regular (Humulin R) 0 units SC Q6H PATRIZIA PRN Reason: Protocol Last Admin: 08/18/17 17:36 Dose: Not Given Morphine Sulfate (Morphine) 6 mg IVP Q4 PRN PRN Reason: Pain, severe (8-10) Last Admin: 08/18/17 06:22 Dose: 6 mg Morphine Sulfate (Morphine) 4 mg IVP Q4 PRN PRN Reason: Pain, moderate (4-7) Last Admin: 08/18/17 16:19 Dose: 4 mg Ondansetron HCl (Zofran Inj) 4 mg IVP Q4 PRN PRN Reason: Nausea/Vomiting Pantoprazole Sodium (Protonix Inj) 40 mg IVP DAILY [facility] Last Admin: 08/18/17 10:24 Dose: 40 mg Results - Vital Signs Recent Vital Signs: Last Vital Signs Temp 97.9 F 08/18/17 16:00 Pulse 87 08/18/17 17:00 Resp 14 08/18/17 17:00 BP 126/60 08/18/17 17:00 Pulse Ox 27 L 08/18/17 17:00 - Labs Result Diagrams: 08/18/17 09:30 08/18/17 09:30 Labs: Laboratory Results - last 24 hr 08/17/17 08/18/17 08/18/17 23:04 00:05 00:05 WBC 12.4 H D RBC 4.31 L Hgb 11.9 L D Hct 35.5 MCV 82.5 MCH 27.6 MCHC 33.5 RDW 17.1 H Plt Count 278 MPV 8.6 Neut % (Auto) 80.9 H Lymph % (Auto) 8.7 L Burnett % (Auto) 8.1 Eos % (Auto) 2.0 Baso % (Auto) 0.3 Neut # (Auto) 10.0 H Lymph # (Auto) 1.1 Burnett # (Auto) 1.0 H Eos # (Auto) 0.2 Baso # (Auto) 0.0 Neutrophils % (Manual) 74 Lymphocytes % (Manual) 18 L Monocytes % (Manual) 6 Eosinophils % (Manual) 2 Platelet Estimate Normal Hypochromasia (manual) Slight Anisocytosis (manual) Slight Acanthocytes (Spur) Slight pO2 VBG pH VBG pCO2 VBG HCO3 VBG Total CO2 VBG O2 Sat (Calc) VBG Base Excess VBG Potassium Glucose Lactate FiO2 Sodium 139 Potassium 3.3 L Chloride 91 L Carbon Dioxide 29 Anion Gap 22 H BUN 33 H Creatinine 6.8 H Est GFR ( Amer) 10 Est GFR (Non-Af Amer) 9 POC Glucose (mg/dL) 290 H Random Glucose 316 H Calcium 8.8 Total Bilirubin 0.9 AST 43 ALT 31 Alkaline Phosphatase 210 H Troponin I 0.0130 Total Protein 7.9 Albumin 4.3 Globulin 3.6 Albumin/Globulin Ratio 1.2 Venous Blood Potassium Influenza Typ A,B (EIA) 08/18/17 08/18/17 08/18/17 02:50 02:54 06:12 WBC RBC Hgb Hct MCV MCH MCHC RDW Plt Count MPV Neut % (Auto) Lymph % (Auto) Burnett % (Auto) Eos % (Auto) Baso % (Auto) Neut # (Auto) Lymph # (Auto) Burnett # (Auto) Eos # (Auto) Baso # (Auto) Neutrophils % (Manual) Lymphocytes % (Manual) Monocytes % (Manual) Eosinophils % (Manual) Platelet Estimate Hypochromasia (manual) Anisocytosis (manual) Acanthocytes (Spur) pO2 52 VBG pH 7.48 H VBG pCO2 44 VBG HCO3 31.1 VBG Total CO2 34.2 H VBG O2 Sat (Calc) 91.2 H VBG Base Excess 8.2 H VBG Potassium 2.9 L Glucose 372 H Lactate 1.8 FiO2 21.0 Sodium 136.0 Potassium Chloride 96.0 L Carbon Dioxide Anion Gap BUN Creatinine Est GFR ( Amer) Est GFR (Non-Af Amer) POC Glucose (mg/dL) 250 H Random Glucose Calcium Total Bilirubin AST ALT Alkaline Phosphatase Troponin I Total Protein Albumin Globulin Albumin/Globulin Ratio Venous Blood Potassium 2.9 L Influenza Typ A,B (EIA) Negative for flu a/b 08/18/17 08/18/17 08/18/17 09:30 09:30 12:04 WBC 13.2 H RBC 4.50 Hgb 12.2 Hct 37.2 MCV 82.7 MCH 27.2 MCHC 32.9 L RDW 16.6 H Plt Count 265 MPV 7.8 Neut % (Auto) 81.9 H Lymph % (Auto) 5.9 L Burnett % (Auto) 10.8 H Eos % (Auto) 1.1 Baso % (Auto) 0.3 Neut # (Auto) 10.8 H Lymph # (Auto) 0.8 L Burnett # (Auto) 1.4 H Eos # (Auto) 0.2 Baso # (Auto) 0.0 Neutrophils % (Manual) Lymphocytes % (Manual) Monocytes % (Manual) Eosinophils % (Manual) Platelet Estimate Hypochromasia (manual) Anisocytosis (manual) Acanthocytes (Spur) pO2 VBG pH VBG pCO2 VBG HCO3 VBG Total CO2 VBG O2 Sat (Calc) VBG Base Excess VBG Potassium Glucose Lactate FiO2 Sodium 139 Potassium 3.1 L Chloride 89 L Carbon Dioxide 30 Anion Gap 23 H BUN 41 H Creatinine 8.5 H* D Est GFR ( Amer) 8 Est GFR (Non-Af Amer) 7 POC Glucose (mg/dL) 212 H Random Glucose 269 H Calcium 8.7 Total Bilirubin AST ALT Alkaline Phosphatase Troponin I Total Protein Albumin Globulin Albumin/Globulin Ratio Venous Blood Potassium Influenza Typ A,B (EIA) 08/18/17 16:49 WBC RBC Hgb Hct MCV MCH MCHC RDW Plt Count MPV Neut % (Auto) Lymph % (Auto) Burnett % (Auto) Eos % (Auto) Baso % (Auto) Neut # (Auto) Lymph # (Auto) Burnett # (Auto) Eos # (Auto) Baso # (Auto) Neutrophils % (Manual) Lymphocytes % (Manual) Monocytes % (Manual) Eosinophils % (Manual) Platelet Estimate Hypochromasia (manual) Anisocytosis (manual) Acanthocytes (Spur) pO2 VBG pH VBG pCO2 VBG HCO3 VBG Total CO2 VBG O2 Sat (Calc) VBG Base Excess VBG Potassium Glucose Lactate FiO2 Sodium Potassium Chloride Carbon Dioxide Anion Gap BUN Creatinine Est GFR ( Amer) Est GFR (Non-Af Amer) POC Glucose (mg/dL) 110 Random Glucose Calcium Total Bilirubin AST ALT Alkaline Phosphatase Troponin I Total Protein Albumin Globulin Albumin/Globulin Ratio Venous Blood Potassium Influenza Typ A,B (EIA) Assessment & Plan - Assessment and Plan (Free Text) Assessment: ESRD ON HD [facility] .. RECIEVING HD RIGHT NOW 2/ [facility]IST[facility] HYPOKALEMIA .. ON HD WITH K BATH 4 MP/L ABDO PAIN .. SEVERE ON THE TIME OF EXAM .. 02/22 .. SBO MMP P : HD RIGHT NOW .. THEN SAT .. NEXT WEEK BACK TO [facility] NO EPO FOR NOW .. H/H GOOD C/O NG SUCTION ' C/O PRESENT CARE - Date & Time Date: 08/18/17 Time: 15:00
[2017-08-18 20:18] LABS: AMYLASE 74 U/L (30-110); LIPASE 54 U/L (23-300)
[2017-08-18 20:59] LABS: HEPATITIS B SURFACE AG Negative (NEGATIVE)
[2017-08-18 21:04] LABS: HEPATITIS B CORE AB NEGATIVE (NEGATIVE)
[2017-08-18 21:17] LABS: HEPATITIS C ANTIBODY NEGATIVE (NEGATIVE)
[2017-08-19] MEDS: Morphine 4 MG/ML VIAL IVP PRN ×4 (00:38→17:14)
--- NOTE | 2017-08-19 03:06 | HP ---
HISTORY OF PRESENT ILLNESS: This is a 52-year-old male with history of multiple medical problems including end-stage renal disease, on hemodialysis presented, was brought to emergency room after he started to suffer acute abdominal pain and nausea and vomiting during hemodialysis. The patient was brought to emergency room where he was evaluated and found to have small bowel obstruction. The patient also was found to have accelerated hypertension. The patient was admitted to Intensive Care Unit after placing a nasogastric tube as well as surgical consult that was done. REVIEW OF SYSTEMS: Other review of systems is negative. ALLERGIES: POSITIVE FOR ASPIRIN, TORADOL, AND VANCOMYCIN. MEDICATIONS: As per MAR. SOCIAL HISTORY: No history of smoking, EtOH, or substance abuse. FAMILY HISTORY: Noncontributory. PAST MEDICAL HISTORY: End-stage renal disease, on hemodialysis; hypertension; type 2 diabetes mellitus; status post failed kidney transplant, and status post multiple abdominal surgery and vascular surgery related to hemodialysis access. PHYSICAL EXAMINATION: GENERAL: The patient is in bed in mild distress due to the nausea. VITAL SIGNS: Blood pressure 163/102, temperature 97.9, respiratory rate 16, and pulse 84. HEENT: Slightly pale mucosa of the conjunctivae. NECK: Supple. No JVD. No carotid bruit. No lymph node. No thyromegaly. CHEST AND LUNGS: Bilateral symmetrical expansion. Good air exchange. No rales. No rhonchi. CARDIOVASCULAR: PMI not localized. S1 and S2. No additional sounds. ABDOMEN: Normoactive bowel sounds. No tenderness. No organomegaly. No masses. EXTREMITIES: No cyanosis. No clubbing.: No edema. CENTRAL NERVOUS SYSTEM: Alert, awake, and oriented x2. No neurological deficit could be appreciated. ASSESSMENT: Small-bowel obstruction; accelerated hypertension; end-stage renal disease, on hemodialysis; and type 2 diabetes mellitus. PLAN: Continue nasogastric tube suction, surgical consult, and follow recommendations. Discussed the patient's condition with Dr. Sher. Accu-Cheks with insulin coverage. Nephrology consult for hemodialysis. Continue IV labetalol and we will resume the patient's medication as he will start to take after resolution of obstruction. Mildred Warren MD [facility] # [phone]
[2017-08-19 05:20] LABS: HEMOGLOBIN 12.6 g/dL (12.0-18.0); MEAN CELL VOLUME 84.4 fl (80.0-94.0); MEAN CORPUSCULAR HEMOGLOBIN 27.4 pg (27.0-31.0); MEAN CORPUSCULAR HGB CONC 32.5 g/dL (33.0-37.0); RBC 4.61 Mil/uL (4.40-5.90); RED CELL DISTRIBUTION WIDTH 16.5 % (11.5-14.5); WHITE BLOOD COUNT 12.5 K/uL (4.8-10.8)
[2017-08-19 05:31] LABS: CALCIUM 8.3 mg/dL (8.4-10.2)
[2017-08-19] MEDS: Insulin Regular 100 units/ml SC SCH ×4 (05:31→22:01)
--- NOTE | 2017-08-19 08:13 | CP.PCM.PN ---
Subjective - Date & Time of Evaluation Date of Evaluation: 08/19/17 Time of Evaluation: 06:55 - Subjective Subjective: Patient seen and examined. No acute events over night. Had multiple bowel movements. Passing flatus. Denies n/v. NGT removed. Denies abdominal pain. Objective - Vital Signs/Intake and Output Vital Signs (last 24 hours): Temp Pulse Resp BP Pulse Ox 97.9 F 85 16 98/49 L 94 L 08/19/17 04:00 08/19/17 06:00 08/19/17 06:00 08/19/17 06:00 08/19/17 06:00 - Medications Medications: Current Medications Insulin Human Regular (Humulin R) 0 units SC Q6H PATRIZIA PRN Reason: Protocol Last Admin: 08/19/17 05:31 Dose: Not Given Morphine Sulfate (Morphine) 4 mg IVP Q4 PRN PRN Reason: Pain, moderate (4-7) Last Admin: 08/18/17 16:19 Dose: 4 mg Morphine Sulfate (Morphine) 6 mg IVP Q4 PRN PRN Reason: Pain, severe (8-10) Last Admin: 08/19/17 05:23 Dose: 6 mg Ondansetron HCl (Zofran Inj) 4 mg IVP Q4 PRN PRN Reason: Nausea/Vomiting Pantoprazole Sodium (Protonix Inj) 40 mg IVP DAILY [facility] Last Admin: 08/18/17 10:24 Dose: 40 mg - Labs Labs: 08/19/17 04:55 08/19/17 04:55 - Constitutional Appears: No Acute Distress - Head Exam Head Exam: NORMOCEPHALIC - Eye Exam Eye Exam: EOMI, Normal appearance - ENT Exam ENT Exam: Mucous Membranes Moist - Respiratory Exam Respiratory Exam: NORMAL BREATHING PATTERN - Cardiovascular Exam Cardiovascular Exam: +S1, +S2 - GI/Abdominal Exam GI & Abdominal Exam: Soft - Neurological Exam Neurological Exam: Alert, Awake, Oriented x3 - Psychiatric Exam Psychiatric exam: Normal Mood - Skin Skin Exam: Dry, Intact, Warm Assessment and Plan - Assessment and Plan (Free Text) Assessment: 52M w/ SBO -resolved Plan: -CLD -ADAT -For dialysis today -Resume anti-coagulation -OOB to chair, encourage ambulation -anti-emetics prn -Medical management per primary team -Further recs per Dr. Christos Culver PGY2
--- NOTE | 2017-08-19 12:07 | CP.CCUPN ---
CCU Subjective - Physician Review Subjective (Free Text): Patient was awake and alert, NGT removed by surgical team, and started on liquid diet, he has been off IV labetalol drip since yesterday and BPs have been on the normotensive to borderline hypotensive side. Other VS and I/Os reviewed. ROS: No other pertinent negs or positives on 10+ system review. PMSFH: All other Nursing and physician documentation reviewed to date; no new pertinent info noted relevant to current medical problems. EXAM- HEENT: no icterus, no gaze preference, pupils equal and reactive, no icterus NECK: No JVD, supple, carotids equal upstroke bilat/no bruits, trach stoma intact. CHEST: decreased BS bases, no wheezes audible HEART: regular distant, tachy S1S2, no rubs. ABD: soft, no distention, no tympany, no palp tenderness, BS hypoactive. EXT: trace edema bilat. No peripheral/ digital cyanosis, no calf tenderness or palpable cords, distal pulses intact and symmetrical. RLE TMA. LUE AVF with good bruit and thrill. NEURO: diminished tone all extremities SKIN: no rashes, warm and dry. LABS: WBC= 12.5 HGB= 12.6 PLTs= 280K Na= 138 K= 3.8 HCO3-= 27 CL= 95 BUN/Cr= 31/6.8 BS= 155 IMPRESSION / MAJOR PROBLEMS NOW: 1. Accelerated HTN, no severe sequelae- resolved 2. SBO 3. Dehydration 4. ESRD on HD, Hypokalemia PLAN: 1. All PO meds will need to be reviewed for resumption if feasible. Will hold all antihypertensive meds for now. 2. SBO mgmt. as per surgical team. Would not resume outpatient Linzess (abd distention) nor Megace ( constipation). All other home meds should be reviewed for any GI adverse reactions. 3. Consider resuming Eliquis, as present Heparin dosing is not sufficient for anticoagulation. CCU Objective - Vital Signs / Intake & Output Intake and Output (Last 8hrs): Intake & Output 08/18/17 08/19/17 08/19/17 22:59 06:59 14:59 Intake Total 0 Output Total 2500 Balance -2500 0 Intake: IV 0 Output: Gastric Amount 500 Right Nares 500 Ultrafiltrate 2000 Other: # Bowel Movements 1 - Medications Active Medications: Active Medications Generic Name Dose Route Start Last Admin Trade Name Freq PRN Reason Stop Dose Admin Heparin Sodium (Porcine) 5,000 units 08/19/17 09:00 08/19/17 09:28 Heparin SC 5,000 units Q8 COUNT INCLUDES THE [facility] Administration Protocol Insulin Human Regular 0 units 08/18/17 04:45 08/19/17 05:31 Humulin R SC Not Given Q6H COUNT INCLUDES THE [facility] Protocol Morphine Sulfate 4 mg 08/18/17 04:41 08/18/17 16:19 Morphine IVP 4 mg Q4 PRN Administration Pain, moderate (4-7) Morphine Sulfate 6 mg 08/18/17 20:45 08/19/17 05:23 Morphine IVP 6 mg Q4 PRN Administration Pain, severe (8-10) Ondansetron HCl 4 mg 08/18/17 04:39 Zofran Inj IVP Q4 PRN Nausea/Vomiting Pantoprazole Sodium 40 mg 08/18/17 09:00 08/19/17 09:26 Protonix Inj IVP 40 mg DAILY COUNT INCLUDES THE [facility] Administration - Patient Studies Lab Studies: Lab Studies 08/19/17 08/19/17 08/19/17 Range/Units 11:06 05:28 04:55 WBC (4.8-10.8) K/uL RBC (4.40-5.90) Mil/uL Hgb (12.0-18.0) g/dL Hct (35.0-51.0) % MCV (80.0-94.0) fl MCH (27.0-31.0) pg MCHC (33.0-37.0) g/dL RDW (11.5-14.5) % Plt Count (130-400) K/uL Sodium 139 (132-148) mmol/l Potassium 3.8 (3.6-5.0) MMOL/L Chloride 95 L (98-107) mmol/L Carbon Dioxide 27 (22-30) mmol/L Anion Gap 21 H (10-20) BUN 31 H (9-20) mg/dl Creatinine 6.8 H (0.8-1.5) mg/dl Est GFR ( Amer) 10 Est GFR (Non-Af Amer) 9 POC Glucose (mg/dL) 132 H 138 H (65-110) mg/dL Random Glucose 155 H (75-110) mg/dL Calcium 8.3 L (8.4-10.2) mg/dL Amylase (30-110) U/L Lipase (23-300) U/L Hep Bs Antigen (NEGATIVE) Hep Bs Antibody (NEGATIVE) Hep B Core IgM Ab (NEGATIVE) Hepatitis C Antibody (NEGATIVE) 08/19/17 08/18/17 08/18/17 Range/Units 04:55 20:56 16:49 WBC 12.5 H (4.8-10.8) K/uL RBC 4.61 (4.40-5.90) Mil/uL Hgb 12.6 (12.0-18.0) g/dL Hct 39.0 (35.0-51.0) % MCV 84.4 (80.0-94.0) fl MCH 27.4 (27.0-31.0) pg MCHC 32.5 L (33.0-37.0) g/dL RDW 16.5 H (11.5-14.5) % Plt Count 280 (130-400) K/uL Sodium (132-148) mmol/l Potassium (3.6-5.0) MMOL/L Chloride (98-107) mmol/L Carbon Dioxide (22-30) mmol/L Anion Gap (10-20) BUN (9-20) mg/dl Creatinine (0.8-1.5) mg/dl Est GFR ( Amer) Est GFR (Non-Af Amer) POC Glucose (mg/dL) 155 H 110 (65-110) mg/dL Random Glucose (75-110) mg/dL Calcium (8.4-10.2) mg/dL Amylase (30-110) U/L Lipase (23-300) U/L Hep Bs Antigen (NEGATIVE) Hep Bs Antibody (NEGATIVE) Hep B Core IgM Ab (NEGATIVE) Hepatitis C Antibody (NEGATIVE) 08/18/17 08/18/17 08/18/17 Range/Units 16:00 12:30 12:30 WBC (4.8-10.8) K/uL RBC (4.40-5.90) Mil/uL Hgb (12.0-18.0) g/dL Hct (35.0-51.0) % MCV (80.0-94.0) fl MCH (27.0-31.0) pg MCHC (33.0-37.0) g/dL RDW (11.5-14.5) % Plt Count (130-400) K/uL Sodium (132-148) mmol/l Potassium (3.6-5.0) MMOL/L Chloride (98-107) mmol/L Carbon Dioxide (22-30) mmol/L Anion Gap (10-20) BUN (9-20) mg/dl Creatinine (0.8-1.5) mg/dl Est GFR ( Amer) Est GFR (Non-Af Amer) POC Glucose (mg/dL) (65-110) mg/dL Random Glucose (75-110) mg/dL Calcium (8.4-10.2) mg/dL Amylase 74 (30-110) U/L Lipase 54 (23-300) U/L Hep Bs Antigen Negative (NEGATIVE) Hep Bs Antibody Indeterminate (NEGATIVE) Hep B Core IgM Ab Negative (NEGATIVE) Hepatitis C Antibody Negative (NEGATIVE) 08/18/17 Range/Units 12:04 WBC (4.8-10.8) K/uL RBC (4.40-5.90) Mil/uL Hgb (12.0-18.0) g/dL Hct (35.0-51.0) % MCV (80.0-94.0) fl MCH (27.0-31.0) pg MCHC (33.0-37.0) g/dL RDW (11.5-14.5) % Plt Count (130-400) K/uL Sodium (132-148) mmol/l Potassium (3.6-5.0) MMOL/L Chloride (98-107) mmol/L Carbon Dioxide (22-30) mmol/L Anion Gap (10-20) BUN (9-20) mg/dl Creatinine (0.8-1.5) mg/dl Est GFR ( Amer) Est GFR (Non-Af Amer) POC Glucose (mg/dL) 212 H (65-110) mg/dL Random Glucose (75-110) mg/dL Calcium (8.4-10.2) mg/dL Amylase (30-110) U/L Lipase (23-300) U/L Hep Bs Antigen (NEGATIVE) Hep Bs Antibody (NEGATIVE) Hep B Core IgM Ab (NEGATIVE) Hepatitis C Antibody (NEGATIVE) Laboratory Results - last 24 hr 08/18/17 08/18/17 08/18/17 12:04 12:30 12:30 WBC RBC Hgb Hct MCV MCH MCHC RDW Plt Count Sodium Potassium Chloride Carbon Dioxide Anion Gap BUN Creatinine Est GFR ( Amer) Est GFR (Non-Af Amer) POC Glucose (mg/dL) 212 H Random Glucose Calcium Amylase Lipase Hep Bs Antigen Negative Hep Bs Antibody Indeterminate Hep B Core IgM Ab Negative Hepatitis C Antibody Negative 08/18/17 08/18/17 08/18/17 16:00 16:49 20:56 WBC RBC Hgb Hct MCV MCH MCHC RDW Plt Count Sodium Potassium Chloride Carbon Dioxide Anion Gap BUN Creatinine Est GFR ( Amer) Est GFR (Non-Af Amer) POC Glucose (mg/dL) 110 155 H Random Glucose Calcium Amylase 74 Lipase 54 Hep Bs Antigen Hep Bs Antibody Hep B Core IgM Ab Hepatitis C Antibody 08/19/17 08/19/17 08/19/17 04:55 04:55 05:28 WBC 12.5 H RBC 4.61 Hgb 12.6 Hct 39.0 MCV 84.4 MCH 27.4 MCHC 32.5 L RDW 16.5 H Plt Count 280 Sodium 139 Potassium 3.8 Chloride 95 L Carbon Dioxide 27 Anion Gap 21 H BUN 31 H Creatinine 6.8 H Est GFR ( Amer) 10 Est GFR (Non-Af Amer) 9 POC Glucose (mg/dL) 138 H Random Glucose 155 H Calcium 8.3 L Amylase Lipase Hep Bs Antigen Hep Bs Antibody Hep B Core IgM Ab Hepatitis C Antibody 08/19/17 11:06 WBC RBC Hgb Hct MCV MCH MCHC RDW Plt Count Sodium Potassium Chloride Carbon Dioxide Anion Gap BUN Creatinine Est GFR ( Amer) Est GFR (Non-Af Amer) POC Glucose (mg/dL) 132 H Random Glucose Calcium Amylase Lipase Hep Bs Antigen Hep Bs Antibody Hep B Core IgM Ab Hepatitis C Antibody Fingerstick Blood Sugar Results: 138 Critical Care Progress Note - Nutrition Nutrition: Nutrition Category Date Time Status Liquid Diet [DIET] Diets 08/19/17 Breakfast Active
--- NOTE | 2017-08-19 18:19 | CARD ---
APPROVED REPORT EKG Measurement Heart [id number] <Conclusion> Sinus rhythm with premature atrial complexes Left axis deviation Right bundle branch block Abnormal ECG
--- NOTE | 2017-08-19 22:03 | CP.PCM.PN ---
Subjective - Date & Time of Evaluation Date of Evaluation: 08/19/17 Time of Evaluation: 16:00 - Subjective Subjective: SEEN IN ICU ON RENAL F/U ALL PEVIOUS EMR REVIEWED GOOD CLINICAL IMPROVEMENT OFF NGT TO LIQIUS DIET ABDO PAIN RESOLVED RECIEVED HD YESTERDAY .. NEXT HD IN AM Objective - Vital Signs/Intake and Output Vital Signs (last 24 hours): Temp Pulse Resp BP Pulse Ox 98.3 F 82 18 125/65 96 08/19/17 08:00 08/19/17 18:00 08/19/17 18:00 08/19/17 18:00 08/19/17 18:00 Intake and Output: 08/19/17 08/20/17 18:59 06:59 Intake Total 200 Output Total 1 Balance 199 - Medications Medications: Current Medications Heparin Sodium (Porcine) (Heparin) 5,000 units SC Q8 [facility] PRN Reason: Protocol Last Admin: 08/19/17 17:12 Dose: 5,000 units Insulin Human Regular (Humulin R) 0 units SC Q6H [facility] PRN Reason: Protocol Last Admin: 08/19/17 17:04 Dose: Not Given Morphine Sulfate (Morphine) 4 mg IVP Q4 PRN PRN Reason: Pain, moderate (4-7) Last Admin: 08/18/17 16:19 Dose: 4 mg Morphine Sulfate (Morphine) 6 mg IVP Q4 PRN PRN Reason: Pain, severe (8-10) Last Admin: 08/19/17 17:14 Dose: 6 mg Ondansetron HCl (Zofran Inj) 4 mg IVP Q4 PRN PRN Reason: Nausea/Vomiting Pantoprazole Sodium (Protonix Inj) 40 mg IVP DAILY [facility] Last Admin: 08/19/17 09:26 Dose: 40 mg - Labs Labs: 08/19/17 04:55 08/19/17 04:55 Assessment and Plan - Assessment and Plan (Free Text) Assessment: ESRD ON HD [facility] .. HD IN AM .. THEN NEXT WEEK BACK TO [facility] ' ANEMIA OF CKD .. H/H GOOD .. HOLD EPO RECURRENT SBO .. RESOLVED NOW MMP P : HD IN AM C/O PRESENT MANAGEMEN C/O CURRENT MEDS DR RHOADES COVERING THIS WEEK END
--- NOTE | 2017-08-19 22:39 | PN ---
DAILY PROGRESS NOTE DATE: 08/19/2017 SUBJECTIVE: The patient is seen today 08/19/2017. The patient passed gas and moved the bowel today and he was started on liquid diet, which he is tolerating. OBJECTIVE: VITAL SIGNS: Blood pressure 125/65, temperature 98.3, respiratory rate 18, and pulse 86. HEENT: Pupils equal and reactive to light. Normal-appearing mucosa of the conjunctivae, oropharynx, and nasal membrane mucosa. NECK: Supple. No JVD. No carotid bruit. No lymph node. No thyromegaly. CHEST AND LUNGS: Bilateral symmetrical expansion. Good air exchange. No rales. No rhonchi. CARDIOVASCULAR: PMI not localized. S1 and S2. No additional sounds. ABDOMEN: Normoactive bowel sounds. No tenderness. No organomegaly. No masses. EXTREMITIES: No cyanosis. No clubbing. No edema. CENTRAL NERVOUS SYSTEM: Alert, awake, and oriented x2. No neurological deficit could be appreciated. ASSESSMENT: Small-bowel obstruction, which treated conservatively; end-stage renal disease, on hemodialysis; type 2 diabetes mellitus; and hypertension. PLAN: Continue current medications as the patient started to take by mouth and he is tolerating and hemodialysis as per engineer remote control diesel. Mildred Warren MD
[2017-08-19] MEDS ORDERED: Patient's Own Med (Acetaminophen/Oxycodone Hydr [Percocet 10/325 Mg Tab] 1 TAB) PO PRN (22:57)
[2017-08-20] MEDS: Morphine 4 MG/ML VIAL IVP PRN ×2 (00:31→09:06)
[2017-08-20] MEDS: Insulin Regular 100 units/ml SC SCH ×7 (07:00→22:30)
--- NOTE | 2017-08-20 08:16 | CP.PCM.PN ---
Subjective - Date & Time of Evaluation Date of Evaluation: 08/20/17 Time of Evaluation: 07:00 - Subjective Subjective: Patient seen and examined. Reports feeling better. Tolerating renal diet. Denies nausea/vomiting.No acute events over night. Passing flatus and having BMs. Objective - Vital Signs/Intake and Output Vital Signs (last 24 hours): Temp Pulse Resp BP Pulse Ox 98.8 F 90 17 105/62 95 08/20/17 01:10 08/20/17 01:10 08/20/17 01:10 08/20/17 01:10 08/20/17 01:10 - Medications Medications: Current Medications Alprazolam (Xanax) 0.25 mg PO PRN PRN PRN Reason: Anxiety Apixaban (Eliquis) 2.5 mg PO Q12 [facility] PRN Reason: Protocol Atorvastatin Calcium (Lipitor) 40 mg PO HS [facility] Digoxin (Digoxin) 0.125 mg PO MWF [facility] Heparin Sodium (Porcine) (Heparin) 5,000 units SC Q8 [facility] PRN Reason: Protocol Last Admin: 08/19/17 17:12 Dose: 5,000 units Home Med (Acetaminophen/Oxycodone Hydr [Percocet 10/325 Mg Tab]) 1 tab PO Q6H PRN PRN Reason: Pain, severe (8-10) Home Med (Febuxostat [Uloric]) 40 mg PO DAILY [facility] Home Med (Linaclotide [Linzess]) 145 mcg PO DAILY PRN PRN Reason: Constipation Home Med (Sevelamer Carbonate [Renvela]) 2,400 mg PO TID [facility] Insulin Detemir (Levemir) 20 units SC HS [facility] Insulin Human Regular (Humulin R) 0 units SC Q6H [facility] PRN Reason: Protocol Last Admin: 08/19/17 22:01 Dose: Not Given Insulin Human Regular (Humulin R) 5 units SC ACTID [facility] Labetalol HCl (Trandate) 200 mg PO Q8 [facility] Megestrol Acetate (Megace) 600 mg PO DAILY [facility] Minoxidil (Minoxidil) 2.5 mg PO Q12 [facility] Morphine Sulfate (Morphine) 4 mg IVP Q4 PRN PRN Reason: Pain, moderate (4-7) Last Admin: 08/20/17 00:31 Dose: 4 mg Morphine Sulfate (Morphine) 6 mg IVP Q4 PRN PRN Reason: Pain, severe (8-10) Last Admin: 08/19/17 17:14 Dose: 6 mg Hshdl-7-Uque Ethyl Esters (Lovaza) 1 gm PO BID [facility] Ondansetron HCl (Zofran Inj) 4 mg IVP Q4 PRN PRN Reason: Nausea/Vomiting Pantoprazole Sodium (Protonix Inj) 40 mg IVP DAILY [facility] Last Admin: 08/19/17 09:26 Dose: 40 mg Paroxetine HCl (Paxil) 10 mg PO DAILY [facility] Tamsulosin HCl (Flomax) 0.4 mg PO DAILY [facility] Ticagrelor (Brilinta) 90 mg PO Q12 [facility] Verapamil HCl (Calan Sr Capsule) 120 mg PO DAILY [facility] Vitamin B Complex/Vit C/Folic Acid (Nephro-Garcia) 1 tab PO DAILY [facility] - Labs Labs: 08/19/17 04:55 08/19/17 04:55 - Constitutional Appears: No Acute Distress - Head Exam Head Exam: NORMOCEPHALIC - Eye Exam Eye Exam: Normal appearance - ENT Exam ENT Exam: Mucous Membranes Moist - Respiratory Exam Respiratory Exam: NORMAL BREATHING PATTERN - Cardiovascular Exam Cardiovascular Exam: +S1, +S2 - GI/Abdominal Exam GI & Abdominal Exam: Soft. absent: Distended, Guarding, Tenderness, Rebound - Neurological Exam Neurological Exam: Alert, Awake, Oriented x3 - Psychiatric Exam Psychiatric exam: Normal Mood - Skin Skin Exam: Dry, Intact, Warm Assessment and Plan - Assessment and Plan (Free Text) Assessment: 52M w/ SBO;resolved Plan: -Renal diet -C/w anticoagulation -Encourage OOB, ambulation -Will sign off, please reconsult as needed -Further recs per Dr. Christos Culver PGY2
[2017-08-20] MEDS ORDERED: Verapamil SR 120 MG CApsule PO SCH (09:00)
[2017-08-20] MEDS: Omega-3-Acid Ethyl Esters 1 GM Cap PO SCH ×2 (09:15→17:09)
[2017-08-20] MEDS: Megestrol Acetate 40 mg/ml Cup PO SCH (09:16)
[2017-08-20] MEDS: Multivitamin Vitamin B Complex (Nephro-Vite) Tab PO SCH (09:18)
[2017-08-20] MEDS ORDERED: Atropine-Diphenoxylate 0.025-2.5mg/5 mL Oral Liq (60 ml) PO PRN (14:24)
[2017-08-20 16:34] VITALS: RESP 20
--- NOTE | 2017-08-20 17:36 | CP.PCM.PN ---
Subjective - Date & Time of Evaluation Date of Evaluation: 08/20/17 Time of Evaluation: 17:34 - Subjective Subjective: oh hd at present difficult canulation but flows holding ESRD ON HD [facility] .. RECIEVING HD RIGHT NOW 2/2 [facility] HYPOKALEMIA .. ON HD WITH K BATH 4 MP/L . SBO MMP P : HD RIGHT NOW .. .. NEXT WEEK BACK TO M W NO EPO FOR NOW .. H/H GOOD Objective - Vital Signs/Intake and Output Vital Signs (last 24 hours): Temp Pulse Resp BP Pulse Ox 99.3 F 83 20 118/77 96 08/20/17 16:33 08/20/17 16:33 08/20/17 16:33 08/20/17 16:33 08/20/17 16:33 - Medications Medications: Current Medications Alprazolam (Xanax) 0.25 mg PO PRN PRN PRN Reason: Anxiety Apixaban (Eliquis) 2.5 mg PO Q12 [facility] PRN Reason: Protocol Atorvastatin Calcium (Lipitor) 40 mg PO HS [facility] Digoxin (Digoxin) 0.125 mg PO MWF [facility] Diphenoxylate HCl/Atropine (Lomotil 0.025-2.5 Mg Tablet) 1 tab PO BID PRN PRN Reason: Diarrhea Heparin Sodium (Porcine) (Heparin) 5,000 units SC Q8 [facility] PRN Reason: Protocol Last Admin: 08/20/17 17:11 Dose: 5,000 units Home Med (Acetaminophen/Oxycodone Hydr [Percocet 10/325 Mg Tab]) 1 tab PO Q6H PRN PRN Reason: Pain, severe (8-10) Home Med (Febuxostat [Uloric]) 40 mg PO DAILY [facility] Home Med (Linaclotide [Linzess]) 145 mcg PO DAILY PRN PRN Reason: Constipation Home Med (Sevelamer Carbonate [Renvela]) 2,400 mg PO TID [facility] Insulin Detemir (Levemir) 20 units SC HS [facility] Insulin Human Regular (Humulin R) 0 units SC Q6H [facility] PRN Reason: Protocol Last Admin: 08/20/17 12:31 Dose: Not Given Insulin Human Regular (Humulin R) 5 units SC ACTID [facility] Last Admin: 08/20/17 17:17 Dose: 5 units Labetalol HCl (Trandate) 200 mg PO Q8 [facility] Last Admin: 08/20/17 17:10 Dose: 200 mg Megestrol Acetate (Megace) 600 mg PO DAILY [facility] Last Admin: 08/20/17 09:16 Dose: 600 mg Minoxidil (Minoxidil) 2.5 mg PO Q12 [facility] Last Admin: 08/20/17 09:18 Dose: 2.5 mg Morphine Sulfate (Morphine) 4 mg IVP Q4 PRN PRN Reason: Pain, moderate (4-7) Last Admin: 08/20/17 00:31 Dose: 4 mg Morphine Sulfate (Morphine) 6 mg IVP Q4 PRN PRN Reason: Pain, severe (8-10) Last Admin: 08/20/17 09:06 Dose: 6 mg Sqqcm-5-Oneq Ethyl Esters (Lovaza) 1 gm PO BID [facility] Last Admin: 08/20/17 17:09 Dose: 1 gm Ondansetron HCl (Zofran Inj) 4 mg IVP Q4 PRN PRN Reason: Nausea/Vomiting Pantoprazole Sodium (Protonix Inj) 40 mg IVP DAILY [facility] Last Admin: 08/20/17 09:19 Dose: 40 mg Paroxetine HCl (Paxil) 10 mg PO DAILY [facility] Last Admin: 08/20/17 09:19 Dose: 10 mg Tamsulosin HCl (Flomax) 0.4 mg PO DAILY [facility] Last Admin: 08/20/17 09:09 Dose: 0.4 mg Ticagrelor (Brilinta) 90 mg PO Q12 [facility] Last Admin: 08/20/17 09:07 Dose: 90 mg Verapamil HCl (Calan Sr Tab) 120 mg PO DAILY [facility] Vitamin B Complex/Vit C/Folic Acid (Nephro-Garcia) 1 tab PO DAILY [facility] Last Admin: 08/20/17 09:18 Dose: 1 tab - Labs Labs: 08/19/17 04:55 08/19/17 04:55 - Constitutional Appears: Non-toxic - Head Exam Head Exam: NORMAL INSPECTION - Eye Exam Eye Exam: Normal appearance - ENT Exam ENT Exam: Mucous Membranes Moist - Neck Exam Neck Exam: Normal Inspection - Respiratory Exam Respiratory Exam: NORMAL BREATHING PATTERN - Cardiovascular Exam Cardiovascular Exam: REGULAR RHYTHM - GI/Abdominal Exam GI & Abdominal Exam: Soft - Extremities Exam Extremities Exam: Normal Inspection - Neurological Exam Neurological Exam: Alert, Awake, Oriented x3 - Psychiatric Exam Psychiatric exam: Normal Affect, Normal Mood - Skin Skin Exam: Normal Color, Warm Assessment and Plan - Assessment and Plan (Free Text) Plan: tamika campos
[2017-08-20] MEDS: Verapamil 120 mg ER Tab PO SCH (17:38)
[2017-08-20] MEDS: Atropine-Diphenoxylate 0.025-2.5 mg Tab PO PRN ×2 (17:38→23:28)
[2017-08-20] MEDS ORDERED: Morphine 4 MG/ML VIAL IVP PRN (20:41)
[2017-08-20] MEDS ORDERED: Insulin Detemir 100 Units/ml Inj SC SCH (22:00)
[2017-08-21] MEDS: Morphine 4 MG/ML VIAL IVP PRN ×2 (04:07→09:41)
[2017-08-21 08:49] VITALS: BP 145/93; PULSE 72; TEMP 98.2; O2SAT 98
[2017-08-21] MEDS ORDERED: Sevelamer Carb 0.8 gm/Packet PO SCH (09:00)
[2017-08-21] MEDS: Atropine-Diphenoxylate 0.025-2.5 mg Tab PO PRN (09:30)
[2017-08-21] MEDS: Verapamil 120 mg ER Tab PO SCH (09:32)
[2017-08-21] MEDS: Insulin Regular 100 units/ml SC SCH ×4 (09:33→13:14)
[2017-08-21] MEDS: Omega-3-Acid Ethyl Esters 1 GM Cap PO SCH (09:33)
[2017-08-21] MEDS: Megestrol Acetate 40 mg/ml Cup PO SCH (09:34)
[2017-08-21] MEDS: Multivitamin Vitamin B Complex (Nephro-Vite) Tab PO SCH (09:35)
--- NOTE | 2017-08-21 10:24 | CP.PCM.DIS ---
Provider - Provider Date of Admission: 08/18/17 02:37 Attending physician: Mildred Warren MD Time Spent in preparation of Discharge (in minutes): 30 Hospital Course - Lab Results Lab Results: Micro Results 08/18/17 11:00 Naris MRSA Culture (Admit) - Final MRSA NOT DETECTED Most Recent Lab Values WBC 12.5 K/uL (4.8-10.8) H 08/19/17 04:55 RBC 4.61 Mil/uL (4.40-5.90) 08/19/17 04:55 Hgb 12.6 g/dL (12.0-18.0) 08/19/17 04:55 Hct 39.0 % (35.0-51.0) 08/19/17 04:55 MCV 84.4 fl (80.0-94.0) 08/19/17 04:55 MCH 27.4 pg (27.0-31.0) 08/19/17 04:55 MCHC 32.5 g/dL (33.0-37.0) L 08/19/17 04:55 RDW 16.5 % (11.5-14.5) H 08/19/17 04:55 Plt Count 280 K/uL (130-400) 08/19/17 04:55 MPV 7.8 fl (7.2-11.7) 08/18/17 09:30 Neut % (Auto) 81.9 % (50.0-75.0) H 08/18/17 09:30 Lymph % (Auto) 5.9 % (20.0-40.0) L 08/18/17 09:30 Knott % (Auto) 10.8 % (0.0-10.0) H 08/18/17 09:30 Eos % (Auto) 1.1 % (0.0-4.0) 08/18/17 09:30 Baso % (Auto) 0.3 % (0.0-2.0) 08/18/17 09:30 Neut # (Auto) 10.8 K/uL (1.8-7.0) H 08/18/17 09:30 Lymph # (Auto) 0.8 K/uL (1.0-4.3) L 08/18/17 09:30 Knott # (Auto) 1.4 K/uL (0.0-0.8) H 08/18/17 09:30 Eos # (Auto) 0.2 K/uL (0.0-0.7) 08/18/17 09:30 Baso # (Auto) 0.0 K/uL (0.0-0.2) 08/18/17 09:30 Neutrophils % (Manual) 74 % (42-75) 08/18/17 00:05 Lymphocytes % (Manual) 18 % (20-50) L 08/18/17 00:05 Monocytes % (Manual) 6 % (0-10) 08/18/17 00:05 Eosinophils % (Manual) 2 % (0-7) 08/18/17 00:05 Platelet Estimate Normal (NORMAL) 08/18/17 00:05 Hypochromasia (manual) Slight 08/18/17 00:05 Anisocytosis (manual) Slight 08/18/17 00:05 Acanthocytes (Spur) Slight 08/18/17 00:05 pO2 52 mm/Hg (30-55) 08/18/17 02:50 VBG pH 7.48 (7.32-7.43) H 08/18/17 02:50 VBG pCO2 44 mmHg (40-60) 08/18/17 02:50 VBG HCO3 31.1 mmol/L 08/18/17 02:50 VBG Total CO2 34.2 mmol/L (22-28) H 08/18/17 02:50 VBG O2 Sat (Calc) 91.2 % (40-65) H 08/18/17 02:50 VBG Base Excess 8.2 mmol/L (0.0-2.0) H 08/18/17 02:50 VBG Potassium 2.9 mmol/L (3.6-5.2) L 08/18/17 02:50 Sodium 136.0 mmol/L (132-148) 08/18/17 02:50 Chloride 96.0 mmol/L (98-107) L 08/18/17 02:50 Glucose 372 mg/dL (75-110) H 08/18/17 02:50 Lactate 1.8 mmol/L (0.7-2.1) 08/18/17 02:50 FiO2 21.0 % 08/18/17 02:50 Sodium 139 mmol/l (132-148) 08/19/17 04:55 Potassium 3.8 MMOL/L (3.6-5.0) 08/19/17 04:55 Chloride 95 mmol/L (98-107) L 08/19/17 04:55 Carbon Dioxide 27 mmol/L (22-30) 08/19/17 04:55 Anion Gap 21 (10-20) H 08/19/17 04:55 BUN 31 mg/dl (9-20) H 08/19/17 04:55 Creatinine 6.8 mg/dl (0.8-1.5) H 08/19/17 04:55 Est GFR ( Amer) 10 08/19/17 04:55 Est GFR (Non-Af Amer) 9 08/19/17 04:55 POC Glucose (mg/dL) 116 mg/dL (65-110) H 08/21/17 07:11 Random Glucose 155 mg/dL (75-110) H 08/19/17 04:55 Calcium 8.3 mg/dL (8.4-10.2) L 08/19/17 04:55 Total Bilirubin 0.9 mg/dl (0.2-1.3) 08/18/17 00:05 AST 43 U/L (17-59) 08/18/17 00:05 ALT 31 U/L (21-72) 08/18/17 00:05 Alkaline Phosphatase 210 U/L (38-126) H 08/18/17 00:05 Troponin I 0.0130 ng/mL (0.00-0.120) 08/18/17 00:05 Total Protein 7.9 G/DL (6.3-8.2) 08/18/17 00:05 Albumin 4.3 g/dL (3.5-5.0) 08/18/17 00:05 Globulin 3.6 gm/dL (2.2-3.9) 08/18/17 00:05 Albumin/Globulin Ratio 1.2 (1.0-2.1) 08/18/17 00:05 Amylase 74 U/L (30-110) 08/18/17 16:00 Lipase 54 U/L (23-300) 08/18/17 16:00 Venous Blood Potassium 2.9 mmol/L (3.6-5.2) L 08/18/17 02:50 Hep Bs Antigen Negative (NEGATIVE) 08/18/17 12:30 Hep Bs Antibody Indeterminate (NEGATIVE) 08/18/17 12:30 Hep B Core IgM Ab Negative (NEGATIVE) 08/18/17 12:30 Hepatitis C Antibody Negative (NEGATIVE) 08/18/17 12:30 Influenza Typ A,B (EIA) Negative for flu a/b (NEGATIVE) 08/18/17 02:54 - Hospital Course Hospital Course: HPI: The Hx was obtained from the patient's and after review of the medical and radiological records. Mr Appiah is a 52 years old male with hx of DM II, HTN , ESRD on HD and SBO 10 years prior, who presented a sudden unset of severe , continuous diffuse abdominal pain beginning at the end of her HD session shortly before coming to the ED. This is associated with severe vomiting dizziness and generalized weakness. He denies fever, or any symptoms immediately prior to his Dialysis. Pt was admitted ICU for uncontrolled HTN, and once this was controlled was downgraded to MedSur for SBO management, which is now also resolved. Pt evaluated by Surgery, stable for discharge home with follow up PCP in one week. Discharge Exam - Head Exam Head Exam: NORMAL INSPECTION, NORMOCEPHALIC - Eye Exam Eye Exam: EOMI, Normal appearance, PERRL - ENT Exam ENT Exam: Mucous Membranes Moist, Normal Oropharynx - Respiratory Exam Respiratory Exam: Clear to PA & Lateral, NORMAL BREATHING PATTERN - Cardiovascular Exam Cardiovascular Exam: RRR, +S1, +S2 - GI/Abdominal Exam GI & Abdominal Exam: Normal Bowel Sounds, Soft. absent: Mass, Organomegaly - Extremities Exam Extremities exam: normal capillary refill, pedal pulses present - Back Exam Back exam: absent: CVA tenderness (L), CVA tenderness (R) - Neurological Exam Neurological exam: Alert, Oriented x3 - Psychiatric Exam Psychiatric exam: Normal Affect, Normal Mood - Skin Skin Exam: Dry, Warm Discharge Plan - Discharge Medications Prescriptions: Apixaban [Eliquis] 2.5 mg PO Q12 #30 tab Atorvastatin [Lipitor] 40 mg PO HS #30 tab Digoxin [Digitek] 125 mcg PO MWF #30 tablet Labetalol [Trandate] 200 mg PO Q8 #90 tab Linaclotide [Linzess] 145 mcg PO DAILY PRN #30 capsule PRN Reason: Constipation Megestrol Acetate [Megace] 15 ml PO Q6H #30 cup Minoxidil 2.5 mg PO Q12 #30 tab Pjbjf-5-Gpxr Ethyl Esters 1 GM [Lovaza] 1 tab PO BID #30 sgl PARoxetine [Paxil] 10 mg PO DAILY #30 tab Sevelamer Carbonate [Renvela] 2,400 mg PO TID #90 tab Tamsulosin [Flomax] 0.4 mg PO DAILY #30 cap Ticagrelor [Brilinta] 90 mg PO Q12 #60 tab Verapamil HCl [Verapamil Sr] 120 mg PO DAILY #30 cap24h.pel - Follow Up Plan Condition: STABLE Disposition: HOME/ ROUTINE Instructions: Hypertension (DC), Hypertension (GEN) Additional Instructions: follow up DR. WARREN one week
--- NOTE | 2017-08-21 10:39 | CP.PCM.CON ---
History of Present Illness - History of Present Illness History of Present Illness: I WAS ASKED TO SEE THIS 52 YEAR OLD MALE WHO I KNOW FROM [facility] ADMISSIONS AND MY OFFICE PRACTICE. HE HAS A HISTORY OF CAD, ATRIAL FIBRILLATION AND SVT, HYPERTENSION, HYPERLIPIDEMIA, DM, CRF ON HD, BPH AND DEPRESSION. HE WENT TO THE ER ON 08/18/17 FOR ABDOMINAL PAIN AND WAS FOUND TO HAVE A SMALL BOWEL OBSTRUCTION AND WAS ADMITTED. HE HAD AN NGT INSERTED AND THE SBO RESOLVED AND HE WAS PLACED BACK ON ON AN ORAL DIET AND HAS TOLERATED IT WELL. HE HAS HAD MULTIPLE SURGICAL PROCEDURES FOR HD ACCESS WITH REPEATED FAILURE OF THE SHUNTS OR AV FISTULAS. HIS CORONARY DISEASE STARTED IN JUNE OF THIS YEAR WHEN HE HAD A RENAL SHUNT REVISION AT [facility] AND HE HAD AM [place] AND WAS BROUGHT TO THE [facility] [employer] AND HAD A SINGLE CORONARY STENT INSERTED. HE HAS BEEN STABLE AND CHEST PAIN FREE SINCE THEN. HE IS ON ELIQUIS FOR HIS ATRIAL FIBRILLATION HISTORY AND TO PREVENT CLOTTING OF HIS RENAL SHUNTS AND BRILINTA FOR HIS CORONARY STENT. HE IS NOT ON ASPIRIN IT CAUSED A GI BLEED IN THE PAST. Past Patient History - Infectious Disease Hx of Infectious Diseases: None - Tetanus Immunizations Tetanus Immunization: Unknown - Past Medical History & Family History Past Medical History?: Yes - Past Social History Smoking Status: Never Smoked - CARDIAC Hx Cardiac Disorders: Yes Hx Atrial Fibrillation: Yes Hx Hypertension: Yes - PULMONARY Hx Respiratory Disorders: No - NEUROLOGICAL Hx Neurological Disorder: Yes - HEENT Hx HEENT Problems: Yes - RENAL Hx Chronic Kidney Disease: Yes Hx Dialysis: Yes Date of Last Dialysis Treatment: 08/17/17 - ENDOCRINE/METABOLIC Hx Endocrine Disorders: Yes Hx Diabetes Mellitus Type 1: Yes Hx Hypothyroidism: No - HEMATOLOGICAL/ONCOLOGICAL Hx Blood Disorders: Yes Hx AIDS: No Hx Anemia: Yes Hx Human Immunodeficiency Virus (HIV): No - INTEGUMENTARY Hx Dermatological Problems: Yes - MUSCULOSKELETAL/RHEUMATOLOGICAL Hx Musculoskeletal Disorders: Yes Hx Arthritis: Yes Hx Falls: No Hx Fractures: No Hx Osteoporosis: Yes - GASTROINTESTINAL Hx Gastrointestinal Disorders: Yes Hx Gastritis: Yes - GENITOURINARY/GYNECOLOGICAL Hx Genitourinary Disorders: Yes - PSYCHIATRIC Hx Psychophysiologic Disorder: Yes Hx Anxiety: Yes Hx Depression: Yes Hx Substance Use: No - SURGICAL HISTORY Hx Amputation: Yes (2017 R foot) Hx Appendectomy: Yes - ANESTHESIA Hx Anesthesia: Yes Hx Anesthesia Reactions: Yes (AWAKE DURING THE SURGERY) Hx Malignant Hyperthermia: No Meds Home Medications: Home Medication List Medication Instructions Recorded Confirmed Type Apixaban [Eliquis] 2.5 mg PO Q12 #30 tab 08/21/17 Rx Atorvastatin [Lipitor] 40 mg PO HS #30 tab 08/21/17 Rx Digoxin [Digitek] 125 mcg PO MWF #30 tablet 08/21/17 Rx Labetalol [Trandate] 200 mg PO Q8 #90 tab 08/21/17 Rx Linaclotide [Linzess] 145 mcg PO DAILY PRN #30 capsule 08/21/17 Rx Megestrol Acetate [Megace] 15 ml PO Q6H #30 cup 08/21/17 Rx Minoxidil 2.5 mg PO Q12 #30 tab 08/21/17 Rx Onlfa-5-Ianp Ethyl Esters 1 GM 1 tab PO BID #30 sgl 08/21/17 Rx [Lovaza] PARoxetine [Paxil] 10 mg PO DAILY #30 tab 08/21/17 Rx Sevelamer Carbonate [Renvela] 2,400 mg PO TID #90 tab 08/21/17 Rx Tamsulosin [Flomax] 0.4 mg PO DAILY #30 cap 08/21/17 Rx Ticagrelor [Brilinta] 90 mg PO Q12 #60 tab 08/21/17 Rx Verapamil HCl [Verapamil Sr] 120 mg PO DAILY #30 cap24h.pel 08/21/17 Rx Allergies/Adverse Reactions: Allergies Allergy/AdvReac Type Severity Reaction Status Date / Time aspirin Allergy RASH Verified 08/17/17 22:19 ketorolac [From Toradol] Allergy RASH Verified 05/15/17 14:59 propoxyphene napsylate Allergy RASH Verified 05/15/17 14:59 [From Darvocet-N] vancomycin AdvReac RASH Verified 05/15/17 14:59 - Medications Medications: Current Medications Alprazolam (Xanax) 0.25 mg PO DAILY PRN PRN Reason: Anxiety Stop: 08/28/17 09:01 Apixaban (Eliquis) 2.5 mg PO Q12 [facility] PRN Reason: Protocol Last Admin: 08/21/17 09:32 Dose: 2.5 mg Atorvastatin Calcium (Lipitor) 40 mg PO HS [facility] Last Admin: 08/20/17 23:26 Dose: 40 mg Digoxin (Digoxin) 0.125 mg PO [facility] Diphenoxylate HCl/Atropine (Lomotil 0.025-2.5 Mg Tablet) 1 tab PO BID PRN PRN Reason: Diarrhea Last Admin: 08/21/17 09:30 Dose: 1 tab Heparin Sodium (Porcine) (Heparin) 5,000 units SC Q8 [facility] PRN Reason: Protocol Last Admin: 08/21/17 09:33 Dose: 5,000 units Home Med (Febuxostat [Uloric]) 40 mg PO DAILY [facility] Home Med (Linaclotide [Linzess]) 145 mcg PO DAILY PRN PRN Reason: Constipation Insulin Detemir (Levemir) 20 units SC HS [facility] Last Admin: 08/20/17 22:20 Dose: 20 units Insulin Human Regular (Humulin R) 5 units SC ACTID [facility] Last Admin: 08/21/17 09:34 Dose: 5 units Insulin Human Regular (Humulin R) 0 units SC 0730,1130,1630,2130 [facility] PRN Reason: Protocol Last Admin: 08/21/17 09:33 Dose: Not Given Labetalol HCl (Trandate) 200 mg PO Q8 [facility] Last Admin: 08/21/17 09:35 Dose: 200 mg Megestrol Acetate (Megace) 600 mg PO DAILY [facility] Last Admin: 08/21/17 09:34 Dose: 600 mg Minoxidil (Minoxidil) 2.5 mg PO Q12 [facility] Last Admin: 08/21/17 09:33 Dose: 2.5 mg Morphine Sulfate (Morphine) 4 mg IVP Q4 PRN PRN Reason: Pain, moderate (4-7) Last Admin: 08/21/17 09:41 Dose: 4 mg Morphine Sulfate (Morphine) 6 mg IVP Q4 PRN PRN Reason: Pain, severe (8-10) Last Admin: 08/20/17 23:23 Dose: 6 mg Mtjwb-9-Pywe Ethyl Esters (Lovaza) 1 gm PO BID [facility] Last Admin: 08/21/17 09:33 Dose: 1 gm Ondansetron HCl (Zofran Inj) 4 mg IVP Q4 PRN PRN Reason: Nausea/Vomiting Pantoprazole Sodium (Protonix Inj) 40 mg IVP DAILY [facility] Last Admin: 08/21/17 09:31 Dose: 40 mg Paroxetine HCl (Paxil) 10 mg PO DAILY [facility] Last Admin: 08/21/17 09:32 Dose: 10 mg Sevelamer Carbonate (Renvela) 2.4 gm PO TID [facility] Last Admin: 08/21/17 09:31 Dose: Not Given Tamsulosin HCl (Flomax) 0.4 mg PO DAILY [facility] Last Admin: 08/21/17 09:33 Dose: 0.4 mg Ticagrelor (Brilinta) 90 mg PO Q12 [facility] Last Admin: 08/21/17 09:32 Dose: 90 mg Verapamil HCl (Calan Sr Tab) 120 mg PO DAILY [facility] Last Admin: 08/21/17 09:32 Dose: 120 mg Vitamin B Complex/Vit C/Folic Acid (Nephro-Garcia) 1 tab PO DAILY [facility] Last Admin: 08/21/17 09:35 Dose: 1 tab Physical Exam - Respiratory Exam Respiratory Exam: Clear to Auscultation Bilateral - Cardiovascular Exam Cardiovascular Exam: REGULAR RHYTHM, +S1, +S2 - Extremities Exam Additional comments: NO EDEMA OF LE - Additional Findings Additional findings: EKG NSR, LAD, RBBB CXR REPORT NOTED RECENT OUT-PATIENT ECHO WITH GOOD LV FUNCTION SURGICAL NOTES REVIEWED Results - Vital Signs Recent Vital Signs: Last Vital Signs Temp 98.2 F 08/21/17 08:49 Pulse 72 08/21/17 09:32 Resp 20 08/21/17 08:49 BP 145/93 H 08/21/17 09:32 Pulse Ox 98 08/21/17 08:49 - Labs Result Diagrams: 08/19/17 04:55 08/19/17 04:55 Labs: Laboratory Results - last 24 hr 08/20/17 08/20/17 08/20/17 11:44 11:58 15:52 POC Glucose (mg/dL) 58 L 78 205 H 08/20/17 08/21/17 22:18 07:11 POC Glucose (mg/dL) 209 H 116 H Assessment & Plan - Assessment and Plan (Free Text) Assessment: SMALL BOWEL OBSTRUCTION-RESOLVED WITH CONSERVATIVE TREATMENT CAD WITH RECENT CORONARY STENT INSERTION HYPERTENSION HYPERLIPIDEMIA CRF ON HD Plan: CONTINUE ELIQUIS, BRILINTA, VERAPAMIL, LOBETALOL, MINOXIDIL, ATORVASTATIN, OMEGA 3, INSULIN HEPARIN STOPPED ASPIRIN WAS NOT GIVEN IT CAUSED A GI BLEED IN THE PAST AND HE IS ON BRILINTA OK TO DISCHARGE PATIENT FROM [facility] I WILL SEE IN MY OFFICE ON 08/25/17 AT 3 PM A PHARMACOLOGICAL STRESS TEST WILL BE ARRANGED FOR IN THE NEAR FUTURE
[2017-08-22] MEDS ORDERED: Digoxin 125 mcg (0.125 mg) Tab PO SCH (09:00)
== END 2017-08-21 13:57 | disposition home or self-care (01) | DRG 388 ==
LOC: H.ER 22:17 → H.ERHOLD 08-18 02:37 → H.ICU/CCU 08-18 10:00 → H.MEDSURG1 08-20 01:05
PROVIDERS: ADMIT Internal Medicine; ATTEND Internal Medicine
PROC: 5A1D70Z Performance of Urinary Filtration, Intermittent, Less than 6 Hours Per Day (ICD-10-PCS; principal; 2017-08-18)
PROC: 5A1D70Z Performance of Urinary Filtration, Intermittent, Less than 6 Hours Per Day (ICD-10-PCS; 2017-08-20)
DX: K56.609 Unspecified intestinal obstruction, unspecified as to partial versus complete obstruction (principal); N18.6 End stage renal disease; I12.0 Hypertensive chronic kidney disease with stage 5 chronic kidney disease or end stage renal disease; I47.1 Supraventricular tachycardia; T86.12 Kidney transplant failure; M81.0 Age-related osteoporosis without current pathological fracture; N40.0 Benign prostatic hyperplasia without lower urinary tract symptoms; Z79.01 Long term (current) use of anticoagulants; Z79.4 Long term (current) use of insulin; Z79.899 Other long term (current) drug therapy; Z87.440 Personal history of urinary (tract) infections; G25.81 Restless legs syndrome; Z87.442 Personal history of urinary calculi; Z90.49 Acquired absence of other specified parts of digestive tract; Z95.5 Presence of coronary angioplasty implant and graft; Z99.2 Dependence on renal dialysis; E11.22 Type 2 diabetes mellitus with diabetic chronic kidney disease; D63.1 Anemia in chronic kidney disease; Z79.84 Long term (current) use of oral hypoglycemic drugs; F32.9 Major depressive disorder, single episode, unspecified; F41.9 Anxiety disorder, unspecified; H26.9 Unspecified cataract; K29.70 Gastritis, unspecified, without bleeding; M10.9 Gout, unspecified; M19.90 Unspecified osteoarthritis, unspecified site; D72.829 Elevated white blood cell count, unspecified; E11.40 Type 2 diabetes mellitus with diabetic neuropathy, unspecified; E78.00 Pure hypercholesterolemia, unspecified; E78.5 Hyperlipidemia, unspecified; E87.6 Hypokalemia; G47.30 Sleep apnea, unspecified; I16.0 Hypertensive urgency; I25.10 Atherosclerotic heart disease of native coronary artery without angina pectoris; I48.91 Unspecified atrial fibrillation; K21.9 Gastro-esophageal reflux disease without esophagitis

== ENCOUNTER 2017-11-08 15:15 | Inpatient (IN) | payer MEDICARE, MEDICAID ==
[2017-11-08 15:15] VITALS: BMI 25.0
[2017-11-08] MEDS ORDERED: Labetalol 5 mg/ml Inj 20ML IVP STA (16:07)
[2017-11-08] MEDS ORDERED: Morphine 4 MG/ML VIAL IVP ONE (16:08)
[2017-11-08] MEDS ORDERED: Morphine 4 MG/ML VIAL ONE (16:31)
[2017-11-08 16:58] LABS: BASO # 0.1 K/uL (0.0-0.2); BASO % 0.9 % (0.0-2.0); EOS # 0.2 K/uL (0.0-0.7); EOS % 2.6 % (0.0-4.0); HEMOGLOBIN 11.9 g/dL (12.0-18.0); LYMPH # 1.2 K/uL (1.0-4.3); LYMPH % 13.5 % (20.0-40.0); MEAN CORPUSCULAR HEMOGLOBIN 26.2 pg (27.0-31.0); MEAN CORPUSCULAR HGB CONC 32.4 g/dL (33.0-37.0); MEAN PLATELET VOLUME 7.8 fl (7.2-11.7); NEUT # 6.3 K/uL (1.8-7.0); RBC 4.53 Mil/uL (4.40-5.90); RED CELL DISTRIBUTION WIDTH 16.7 % (11.5-14.5); WHITE BLOOD COUNT 8.8 K/uL (4.8-10.8)
--- NOTE | 2017-11-08 17:07 | RAD ---
PROCEDURE: CHEST RADIOGRAPH, 1 VIEW HISTORY: esrd COMPARISON: None available. FINDINGS: LUNGS: No acute pulmonary disease appreciable. Study is captured apical lordotic type format. PLEURA: No pneumothorax or pleural fluid seen. CARDIOVASCULAR: Stable cardiac silhouette. No pulmonary vascular congestion. Permanent left center venous dialysis catheter unchanged in position with numerous kissing right upper extremity/subclavian wall stents appreciated. OSSEOUS STRUCTURES: No significant abnormalities. VISUALIZED UPPER ABDOMEN: Normal. OTHER FINDINGS: None. IMPRESSION: No acute cardiopulmonary disease appreciated.
[2017-11-08 17:15] LABS: VENOUS BLOOD GAS BASE EXCESS -3.7 mmol/L (0.0-2.0); VENOUS BLOOD GAS PCO2 50 mmHg (40-60); VENOUS BLOOD GAS PO2 37 mm/Hg (30-55); VENOUS BLOOD PH 7.28 (7.32-7.43)
--- NOTE | 2017-11-08 17:24 | ED PDOC ---
HPI: Abdomen Time Seen by Provider: 11/08/17 15:36 Chief Complaint (Nursing): GI Problem Chief Complaint (Provider): GI Problem History Per: Patient History/Exam Limitations: no limitations Onset/Duration Of Symptoms: Days (x2) Current Symptoms Are (Timing): Still Present Additional Complaint(s): 52 year old male presents to the emergency department complaining of abdominal pain, nausea, and body aches for two days. Patient is on dialysis every Tuesday, Tuesday, and Tuesday, but notes he had to miss it yesterday due to a clotted AV fistula on his left arm, which he states has happened before. He saw Dr. Canela in office and spoke with electrical instrument maker Dr. Clayton who told patient to come to the ED for evaluation. Denies shortness of breath, chest pain, and fever. PMD: Dr. Warren Past Medical History Reviewed: Historical Data, Nursing Documentation, Vital Signs Vital Signs: Last Vital Signs Temp 97.9 F 11/09/17 12:00 Pulse 71 11/09/17 08:39 Resp 12 11/09/17 08:39 BP 179/96 H 11/09/17 08:39 Pulse Ox 98 11/09/17 08:39 - Medical History PMH: Anemia, Anxiety, Arthritis, Atrial Fibrillation, Cardia Arrhythmia, Depression, Diabetes (type II), Gastritis, GERD, HTN, Hypercholesterolemia, Osteoporosis, Peripheral Edema, End Stage Renal Disease, Chronic Kidney Disease , Sleep Apnea Denies: CHF, Fractures, HIV, Hypothyroidism, Kidney Stones - Surgical History Surgical History: Appendectomy, Endoscopy Other surgeries: right foot amputation; failed kidney transplant - Family History Family History: States: Hypertension - Home Medications Home Medications: Ambulatory Orders Medication Instructions Recorded Acetaminophen/Oxycodone Hydr 1 tab PO Q6H PRN 05/24/16 [Percocet 10/325 mg Tab] Febuxostat [Uloric] 40 mg PO DAILY 05/24/16 Apixaban [Eliquis] 2.5 mg PO Q12 12/24/16 Alprazolam [Xanax] 0.5 mg PO Q8 PRN 08/18/17 Folic Acid/Vit B Complex and C 1 tab PO DAILY 08/18/17 [Nephro-Garcia Tablet] Insulin Detemir [Levemir] 40 units SQ HS 08/18/17 Atorvastatin [Lipitor] 40 mg PO HS #30 tab 08/21/17 Digoxin [Digitek] 125 mcg PO MWF #30 tablet 08/21/17 Linaclotide [Linzess] 145 mcg PO DAILY PRN #30 capsule 08/21/17 Minoxidil 2.5 mg PO Q12 #30 tab 08/21/17 PARoxetine [Paxil] 10 mg PO DAILY #30 tab 08/21/17 Tamsulosin [Flomax] 0.4 mg PO DAILY #30 cap 08/21/17 Ticagrelor [Brilinta] 90 mg PO Q12 #60 tab 08/21/17 Verapamil HCl [Verapamil Sr] 120 mg PO DAILY #30 cap24h.pel 08/21/17 Atropine/Diphenoxylate [Lomotil 2 tab PO Q8 PRN 11/08/17 0.025-2.5 mg tablet] Calcium Acetate [Phoslo] 667 mg PO TID 11/08/17 Cholecalciferol (Vitamin D3) 2,000 unit PO DAILY 11/08/17 [Vitamin D3] Gabapentin Enacarbil [Horizant] 300 mg PO DAILY 11/08/17 Gabapentin Enacarbil [Horizant] 600 mg PO HS 11/08/17 Insulin Aspart, Recombinant 10 - 15 unit SC AC 11/08/17 [Novolog] Lactulose [Generlac] 15 ml PO HS PRN 11/08/17 Megestrol Acetate [Megace] 15 ml PO DAILY 11/08/17 [id number] Ethyl Esters 1 GM 1 gm PO BID 11/08/17 [Lovaza] Sevelamer Carbonate [Renvela] 1,600 mg PO TID 11/08/17 - Allergies Allergies/Adverse Reactions: Allergies Allergy/AdvReac Type Severity Reaction Status Date / Time aspirin Allergy RASH Verified 11/08/17 15:24 ketorolac [From Toradol] Allergy RASH Verified 11/08/17 15:24 propoxyphene napsylate Allergy RASH Verified 11/08/17 15:24 [From Darvocet-N] vancomycin AdvReac RASH Verified 11/08/17 15:24 Review of Systems ROS Statement: Except As Marked, All Systems Reviewed And Found Negative Constitutional: Positive for: Other (body aches). Negative for: Fever Cardiovascular: Negative for: Chest Pain Respiratory: Negative for: Shortness of Breath Gastrointestinal: Positive for: Nausea, Abdominal Pain Physical Exam - Reviewed Nursing Documentation Reviewed: Yes Vital Signs Reviewed: Yes - Physical Exam Appears: Positive for: No Acute Distress Head Exam: Positive for: ATRAUMATIC, NORMOCEPHALIC Skin: Positive for: Normal Color, Warm, Dry Eye Exam: Positive for: Normal appearance, EOMI, PERRL ENT: Positive for: Normal ENT Inspection Neck: Positive for: Normal, Painless ROM, Supple Cardiovascular/Chest: Positive for: Regular Rate, Rhythm. Negative for: Murmur Respiratory: Positive for: Normal Breath Sounds. Negative for: Accessory Muscle Use, Respiratory Distress Gastrointestinal/Abdominal: Positive for: Soft, Tenderness (diffuse to palpation ; multiple scars noted) Back: Positive for: Normal Inspection Extremity: Positive for: Normal ROM, Other (right foot ambulated around mid foot ; AV fistula present on left arm with suture, no swelling or redness). Negative for: Swelling Neurologic/Psych: Positive for: Alert, Oriented (x3). Negative for: Motor/ Sensory Deficits - Laboratory Results Result Diagrams: 11/08/17 16:47 11/08/17 17:15 - ECG O2 Sat by Pulse Oximetry: 98 (RA) Pulse Ox Interpretation: Normal Medical Decision Making Medical Decision Making: Initial Impression: abdominal pain with nausea, arthralgias, hypertension, missed dialysis Ddx: volume overload from missed dialysis, small bowel obstruction, hyperkalemia Time: 16:06 Initial Plan: --Blood culture --Zofran 4mg IV --Trandate 20mg IVP --Morphine 4mg IVP --CXR --PT / PTT --CBC with differential --EKG --VBG Shock Panel --CT Abd / Pelvis --BMP --Digoxin 17:06 CXR FINDINGS: LUNGS: No acute pulmonary disease appreciable. Study is captured apical lordotic type format. PLEURA: No pneumothorax or pleural fluid seen. CARDIOVASCULAR: Stable cardiac silhouette. No pulmonary vascular congestion. Permanent left center venous dialysis catheter unchanged in position with numerous kissing right upper extremity/subclavian wall stents appreciated. OSSEOUS STRUCTURES: No significant abnormalities. VISUALIZED UPPER ABDOMEN: Normal. OTHER FINDINGS: None. IMPRESSION: No acute cardiopulmonary disease appreciated. Scribe Attestation: Documented by Lucy Falcon, acting as a scribe for Nehal Arrington MD. Provider Scribe Attestation: All medical entries made by the Scribe were at my direction and personally dictated by me. I have reviewed the chart and agree that the record accurately reflects my personal performance of the history, physical exam, medical decision making, and the department course for this patient. I have also personally directed, reviewed, and agree with the discharge instructions and disposition. Disposition - Clinical Impression Clinical Impression: Hyperkalemia, Fluid overload, AV shunt malfunction - Patient ED Disposition Is Patient to be Admitted: Transfer of Care Counseled Patient/Family Regarding: Studies Performed, Diagnosis - Disposition Disposition: Transfer of Care Disposition Time: 17:00 Condition: FAIR Patient Signed Over To: Warren Saez III
[2017-11-08 17:45] LABS: CALCIUM 7.5 mg/dL (8.4-10.2); PARTIAL THROMBOPLASTIN TIME 34.3 Seconds (25.6-37.1); PROTHROMBIN TIME 11.6 Seconds (9.8-13.1)
--- NOTE | 2017-11-08 18:08 | ED PDOC ---
- Laboratory Results Result Diagrams: 11/08/17 16:47 11/08/17 17:15 - ECG O2 Sat by Pulse Oximetry: 98 (RA) Medical Decision Making Medical Decision Makin:00 Patient care endorsed from Dr. Arrington to Dr. Saez pending workup, imaging, and possible need for dialysis. Also of note, patient's blood pressure is improved. 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 Provider Scribe Attestation: All medical entries made by the Scribe were at my direction and personally dictated by me. I have reviewed the chart and agree that the record accurately reflects my personal performance of the history, physical exam, medical decision making, and the department course for this patient. I have also personally directed, reviewed, and agree with the discharge instructions and disposition. Disposition - Clinical Impression Clinical Impression: Hyperkalemia, Fluid overload, AV shunt malfunction - POA Present On Arrival: None - Disposition Disposition: Admitted as In-Patient Disposition Time: 18:45 Condition: FAIR
--- NOTE | 2017-11-08 18:11 | CT ---
PROCEDURE: CT Abdomen and Pelvis without intravenous contrast HISTORY: nausea abdominal pain ; end-stage renal disease. COMPARISON: Noncontrast abdomen and pelvis CT 08/17/2017. TECHNIQUE: Helical CT of the abdomen and pelvis was performed without oral or intravenous contrast as per referring physician request. Contrast dose: None Radiation dose: Total exam DLP = 1042.80 mGy-cm. This CT exam was performed using one or more of the following dose reduction techniques: Automated exposure control, adjustment of the mA and/or kV according to patient size, and/or use of iterative reconstruction technique. FINDINGS: LOWER THORAX: Linear atelectasis or fibrosis is again seen the bilateral lung bases. Borderline cardiomegaly reiterated. LIVER: Unremarkable. No gross lesion or ductal dilatation. GALLBLADDER AND BILE DUCTS: Unremarkable. PANCREAS: Unremarkable. No gross lesion or ductal dilatation. Calcified peripancreatic lymph nodes are granulomata are identified, also seen in the gastrohepatic ligament. SPLEEN: Unremarkable. ADRENALS: Unremarkable. No mass. KIDNEYS AND URETERS: Markedly atrophic partially calcified kidneys are appreciated once again. A trophic transplant kidney identified at the right hemipelvis/right lower quadrant. No obstructive uropathy. VASCULATURE: Extensive non aneurysmal atherosclerotic arterial changes are seen throughout the small arteries of the abdomen with the abdominal aorta a least affected. BOWEL: No interval bowel obstruction appreciable with diastases or postoperative changes at the rectus abdominus musculature resulting in mesentery/ bowel close to the dermis. Nonspecific mild dilatation of small-bowel loops in the left lower quadrant is appreciated of uncertain origin. Consider follow-up radiography. APPENDIX: None identified once again. PERITONEUM: Unremarkable. No free fluid. No free air. LYMPH NODES: Unremarkable. No enlarged lymph nodes. BLADDER: The bladder is decompressed with a thickened wall potentially reflecting cystitis. Overall appearance is not dramatically changed in the interval. REPRODUCTIVE: Unremarkable. BONES: No acute fracture. OTHER FINDINGS: Bilateral buttocks granulomata are appreciated. IMPRESSION: 1. Limited dilatation of small-bowel loops of low left lower quadrant is appreciated which is nonspecific and appears very definitive bowel obstruction pattern is not apparent at this time with this is the same area that was more probably dilated in the prior bowel obstruction on 08/17/2017 and follow-up imaging is advised to exclude potential worsening of bowel dilatation that might indicate developing ileus or bowel obstruction. The lack of oral contrast and intravenous contrast agents limits interpretation. 2. No obstructive uropathy bilaterally. Grossly atrophic partially calcified bilateral [place] kidneys are identified with right hemipelvis/lower quadrant transplant kidney appear atrophic once again. 3. Abdominal wall diastases reiterated with bowel close the surface of the dermis. Limited dilatation of small-bowel loops at the left lower quadrant is appreciated which is nonspecific at this time. Given the pattern for obstruction previously demonstrated with an epicenter here, follow-up bowel imaging is advised to exclude potential early obstruction or ileus. 4. Additional lesser findings as discussed above.
[2017-11-08] MEDS ORDERED: Sod Polystyrene Sulf 15 gm/60 ml Susp PO ONE (18:55)
[2017-11-08] MEDS ORDERED: HYDROmorphone 0.5 mg/0.5 ml ISec ONE ×2 (19:30→23:15)
[2017-11-08] MEDS ORDERED: HYDROmorphone 0.5 mg/0.5 ml ISec SC STA (19:32)
[2017-11-08] MEDS ORDERED: Sod Polystyrene Sulf 15 gm/60 ml Susp ONE (19:32)
--- NOTE | 2017-11-08 20:14 | CP.PCM.CON ---
History of Present Illness - History of Present Illness History of Present Illness: Vascular Surgery- Dr. Julien 53M pmhx significant of ESRD on HD (MWF) last dialysis on Tuesday11/04/17, HTN, DM, LUE HeRo graft AVF multiple attempts for declotting and fistulagram presents to [facility] ED after seeing Dr. Julien and primary medical physician today. Options were discussed for possible new dialysis access since LUE has failed. currently complaining of full body aches. Denies fevers, chills, chest pain, shortness of breath, nausea, vomiting diarrhea. PMH: stated above PSH: exploratory laparotomy, failed renal transplant x2, failed AVF x7 ALL: Aspirin, ketorolac, vanc Socialhx: Denies tobacco, etoh, recreational drug use FH: non-contributory PMD: Dr. Warren 12pt ROS conducted, negative otherwise noted above Review of Systems - Review of Systems All systems: reviewed and no additional remarkable complaints except - Constitutional Constitutional: As Per HPI Past Patient History - Infectious Disease Hx of Infectious Diseases: None - Tetanus Immunizations Tetanus Immunization: Unknown - Past Medical History & Family History Past Medical History?: Yes - Past Social History Smoking Status: Never Smoked - CARDIAC Hx Atrial Fibrillation: Yes Hx Cardia Arrhythmia: Yes Hx Congestive Heart Failure: No Hx Hypercholesterolemia: Yes Hx Hypertension: Yes Hx Peripheral Edema: Yes - PULMONARY Hx Sleep Apnea: Yes - NEUROLOGICAL Hx Neurological Disorder: Yes - HEENT Hx HEENT Problems: Yes - RENAL Hx Chronic Kidney Disease: Yes Hx Kidney Stones: No - ENDOCRINE/METABOLIC Hx Hypothyroidism: No - HEMATOLOGICAL/ONCOLOGICAL Hx Anemia: Yes Hx Human Immunodeficiency Virus (HIV): No - INTEGUMENTARY Hx Dermatological Problems: Yes - MUSCULOSKELETAL/RHEUMATOLOGICAL Hx Arthritis: Yes Hx Fractures: No Hx Osteoporosis: Yes - GASTROINTESTINAL Hx Gastritis: Yes - GENITOURINARY/GYNECOLOGICAL Hx Genitourinary Disorders: Yes - PSYCHIATRIC Hx Anxiety: Yes Hx Depression: Yes - SURGICAL HISTORY Hx Appendectomy: Yes - ANESTHESIA Hx Anesthesia: Yes Hx Anesthesia Reactions: Yes (AWAKE DURING THE SURGERY) Hx Malignant Hyperthermia: No Meds Allergies/Adverse Reactions: Allergies Allergy/AdvReac Type Severity Reaction Status Date / Time aspirin Allergy RASH Verified 11/08/17 15:24 ketorolac [From Toradol] Allergy RASH Verified 11/08/17 15:24 propoxyphene napsylate Allergy RASH Verified 11/08/17 15:24 [From Darkamit-N] vancomycin AdvReac RASH Verified 11/08/17 15:24 Physical Exam - Constitutional Appears: Non-toxic, No Acute Distress, Older Than Stated Age - Head Exam Head Exam: ATRAUMATIC - Eye Exam Eye Exam: EOMI. absent: Scleral icterus - ENT Exam ENT Exam: Mucous Membranes Moist - Respiratory Exam Respiratory Exam: NORMAL BREATHING PATTERN. absent: Accessory Muscle Use, Respiratory Distress - Cardiovascular Exam Cardiovascular Exam: +S1, +S2. absent: Bradycardia, Tachycardia - GI/Abdominal Exam GI & Abdominal Exam: Soft. absent: Firm, Guarding, Rebound, Rigid, Tenderness - Extremities Exam Extremities exam: Positive for: normal inspection, pedal edema (+1). Negative for: calf tenderness - Neurological Exam Neurological exam: Alert, Oriented x3 - Psychiatric Exam Psychiatric exam: Normal Affect - Skin Skin Exam: Intact, Warm Results - Vital Signs Recent Vital Signs: Last Vital Signs Temp 98.3 F 11/08/17 15:25 Pulse 74 11/08/17 17:35 Resp 18 11/08/17 17:35 BP 99/69 L 11/08/17 17:35 Pulse Ox 98 11/08/17 19:40 - Labs Result Diagrams: 11/08/17 16:47 11/08/17 17:15 Labs: Laboratory Results - last 24 hr 11/08/17 11/08/17 11/08/17 16:47 16:47 17:11 WBC 8.8 RBC 4.53 Hgb 11.9 L Hct 36.7 MCV 81.0 D MCH 26.2 L MCHC 32.4 L RDW 16.7 H Plt Count 208 MPV 7.8 Neut % (Auto) 72.0 Lymph % (Auto) 13.5 L Pepin % (Auto) 11.0 H Eos % (Auto) 2.6 Baso % (Auto) 0.9 Neut # (Auto) 6.3 Lymph # (Auto) 1.2 Pepin # (Auto) 1.0 H Eos # (Auto) 0.2 Baso # (Auto) 0.1 PT INR APTT pO2 37 VBG pH 7.28 L VBG pCO2 50 VBG HCO3 21.1 VBG Total CO2 25.0 VBG O2 Sat (Calc) 70.5 H VBG Base Excess -3.7 L VBG Potassium 5.2 Sodium 133.0 Chloride 95.0 L Glucose 229 H Lactate 1.2 FiO2 21.0 Potassium Carbon Dioxide Anion Gap BUN Creatinine Est GFR ( Amer) Est GFR (Non-Af Amer) Random Glucose Calcium Venous Blood Potassium 5.2 Digoxin 0.7 L 11/08/17 11/08/17 17:15 17:15 WBC RBC Hgb Hct MCV MCH MCHC RDW Plt Count MPV Neut % (Auto) Lymph % (Auto) Pepin % (Auto) Eos % (Auto) Baso % (Auto) Neut # (Auto) Lymph # (Auto) Pepin # (Auto) Eos # (Auto) Baso # (Auto) PT 11.6 INR 1.0 APTT 34.3 pO2 VBG pH VBG pCO2 VBG HCO3 VBG Total CO2 VBG O2 Sat (Calc) VBG Base Excess VBG Potassium Sodium 137 Chloride 95 L Glucose Lactate FiO2 Potassium 5.3 H Carbon Dioxide 19 L Anion Gap 28 H BUN 94 H Creatinine 14.9 H* D Est GFR ( Amer) 4 Est GFR (Non-Af Amer) 3 Random Glucose 205 H Calcium 7.5 L Venous Blood Potassium Digoxin Assessment & Plan - Assessment and Plan (Free Text) Assessment: 52M w/ pmhx ESRD on HD MWF, last dialysis on Tuesday11/04/17, presents w/ non- functioning LUE AVF HeRo graft Plan: - will place temporary dialysis catheter - plan for dialysis tomorrow through temp catheter - medical management per primary team - further recs per Dr. Julien [facility]
--- NOTE | 2017-11-08 21:57 | PCM.PROC ---
Procedures Attestation:: I certify that I have explained the specified Operation(s) or Procedure(s), risks, benefits and reasonable alternatives to the Patient and/or other person responsible. The opportunity was given to ask questions and all questions answered - Central Line Placement Right Femoral Hemodialysis Access Aseptic technique was employed throughout the procedure: Hand Hygiene done prior to procedure, Full sterile barriers (mask, hair cover, sterile gown, sterile gloves), Full body sterile drape, Chloraprep Antiseptic: 2 minute prep for Femoral CVP Time Out Performed: Yes Pt. Placed on Pulse Ox Monitor: Yes Central Line Prep: Chlorhexidine-Alcohol Combination Local Anesthesia Used: Lidocaine 1% Amount of Anesthesia Used (mls): 5 Ultrasound Used for Placement: Yes Central Line Lumen Inserted: double Central Line Length: 20 cm Post Procedure: Sutured in Place, Good Blood Return, All Ports Aspirated, Flushed, Capped, Sterile Dressing Applied Secured by: Suture Post procedure dressing: Gauze, Clear vapor permeable, Chlorhexidine disc ( Biopatch) Post Procedure X-Ray: No Patient Tolerated Procedure: Well Immediate Complications: None
[2017-11-08] MEDS: HYDROmorphone 0.5 mg/0.5 ml ISec IVP PRN (23:18)
--- NOTE | 2017-11-09 00:22 | CP.PCM.CON ---
History of Present Illness - History of Present Illness History of Present Illness: REASONS FOR CONSULT : ESRD ON HD [facility]. MISSED HIS HD YESTERDAY 2/2 LACK OF HD ACCESS ANEMIA OF CKD .. H/H STABLE CLOTTED L ARM HeRO HD GRAFT PT THELMA ME THAT HE DID NOT GO FOR HIS HD YESTERDAY 2/2 CLOTTED HD GRAFT WENT TO DR MCCLENDON TODAY WHO ADVICED HIM TO GO ON PD 53M pmhx significant of ESRD on HD (MWF) last dialysis on Tuesday11/04/17, HTN, DM, LUE HeRo graft AVF multiple attempts for declotting and fistulagram presents to [facility] after seeing Dr. Julien and primary medical physician today. Options were discussed for possible new dialysis access since LUE has failed. currently complaining of full body aches. Denies fevers, chills, chest pain, shortness of breath, nausea, vomiting diarrhea. PMH: stated above PSH: exploratory laparotomy, failed renal transplant x2, failed AVF x7 ALL: Aspirin, ketorolac, vanc Socialhx: Denies tobacco, etoh, recreational drug use FH: non-contributory PMD: Dr. Warren 12pt ROS conducted, negative otherwise noted above Review of Systems - Review of Systems All systems: reviewed and no additional remarkable complaints except - Constitutional Constitutional: As Per HPI Past Patient History - Infectious Disease Hx of Infectious Diseases: None - Tetanus Immunizations Tetanus Immunization: Unknown - Past Medical History & Family History Past Medical History?: Yes - Past Social History Smoking Status: Never Smoked - CARDIAC Hx Atrial Fibrillation: Yes Hx Cardia Arrhythmia: Yes Hx Congestive Heart Failure: No Hx Hypercholesterolemia: Yes Hx Hypertension: Yes Hx Peripheral Edema: Yes - PULMONARY Hx Sleep Apnea: Yes - NEUROLOGICAL Hx Neurological Disorder: Yes - HEENT Hx HEENT Problems: Yes - RENAL Hx Chronic Kidney Disease: Yes Hx Kidney Stones: No Past Patient History - Infectious Disease Hx of Infectious Diseases: None - Tetanus Immunizations Tetanus Immunization: Unknown - Past Medical History & Family History Past Medical History?: Yes - Past Social History Smoking Status: Never Smoked - CARDIAC Hx Atrial Fibrillation: Yes Hx Cardia Arrhythmia: Yes Hx Congestive Heart Failure: No Hx Hypercholesterolemia: Yes Hx Hypertension: Yes Hx Peripheral Edema: Yes - PULMONARY Hx Sleep Apnea: Yes - NEUROLOGICAL Hx Neurological Disorder: Yes - HEENT Hx HEENT Problems: Yes - RENAL Hx Chronic Kidney Disease: Yes Hx Kidney Stones: No - ENDOCRINE/METABOLIC Hx Hypothyroidism: No - HEMATOLOGICAL/ONCOLOGICAL Hx Anemia: Yes Hx Human Immunodeficiency Virus (HIV): No - INTEGUMENTARY Hx Dermatological Problems: Yes - MUSCULOSKELETAL/RHEUMATOLOGICAL Hx Arthritis: Yes Hx Fractures: No Hx Osteoporosis: Yes - GASTROINTESTINAL Hx Gastritis: Yes - GENITOURINARY/GYNECOLOGICAL Hx Genitourinary Disorders: Yes - PSYCHIATRIC Hx Anxiety: Yes Hx Depression: Yes - SURGICAL HISTORY Hx Appendectomy: Yes - ANESTHESIA Hx Anesthesia: Yes Hx Anesthesia Reactions: Yes (AWAKE DURING THE SURGERY) Hx Malignant Hyperthermia: No Meds Allergies/Adverse Reactions: Allergies Allergy/AdvReac Type Severity Reaction Status Date / Time aspirin Allergy RASH Verified 11/08/17 15:24 ketorolac [From Toradol] Allergy RASH Verified 11/08/17 15:24 propoxyphene napsylate Allergy RASH Verified 11/08/17 15:24 [From Darvocet-N] vancomycin AdvReac RASH Verified 11/08/17 15:24 - Medications Medications: Current Medications Hydromorphone HCl (Dilaudid) 0.5 mg IVP Q4 PRN PRN Reason: Pain, severe (8-10) Last Admin: 11/08/17 23:18 Dose: 0.5 mg Results - Vital Signs Recent Vital Signs: Last Vital Signs Temp 98.3 F 11/08/17 15:25 Pulse 77 11/08/17 20:25 Resp 18 11/08/17 20:25 BP 161/91 H 11/08/17 20:25 Pulse Ox 98 11/08/17 20:25 - Labs Result Diagrams: 11/08/17 16:47 11/08/17 17:15 Labs: Laboratory Results - last 24 hr 11/08/17 11/08/17 11/08/17 16:47 16:47 17:11 WBC 8.8 RBC 4.53 Hgb 11.9 L Hct 36.7 MCV 81.0 D MCH 26.2 L MCHC 32.4 L RDW 16.7 H Plt Count 208 MPV 7.8 Neut % (Auto) 72.0 Lymph % (Auto) 13.5 L [place] % (Auto) 11.0 H Eos % (Auto) 2.6 Baso % (Auto) 0.9 Neut # (Auto) 6.3 Lymph # (Auto) 1.2 [place] # (Auto) 1.0 H Eos # (Auto) 0.2 Baso # (Auto) 0.1 PT INR APTT pO2 37 VBG pH 7.28 L VBG pCO2 50 VBG HCO3 21.1 VBG Total CO2 25.0 VBG O2 Sat (Calc) 70.5 H VBG Base Excess -3.7 L VBG Potassium 5.2 Sodium 133.0 Chloride 95.0 L Glucose 229 H Lactate 1.2 FiO2 21.0 Potassium Carbon Dioxide Anion Gap BUN Creatinine Est GFR ( Amer) Est GFR (Non-Af Amer) Random Glucose Calcium Venous Blood Potassium 5.2 Digoxin 0.7 L 11/08/17 11/08/17 17:15 17:15 WBC RBC Hgb Hct MCV MCH MCHC RDW Plt Count MPV Neut % (Auto) Lymph % (Auto) [place] % (Auto) Eos % (Auto) Baso % (Auto) Neut # (Auto) Lymph # (Auto) [place] # (Auto) Eos # (Auto) Baso # (Auto) PT 11.6 INR 1.0 APTT 34.3 pO2 VBG pH VBG pCO2 VBG HCO3 VBG Total CO2 VBG O2 Sat (Calc) VBG Base Excess VBG Potassium Sodium 137 Chloride 95 L Glucose Lactate FiO2 Potassium 5.3 H Carbon Dioxide 19 L Anion Gap 28 H BUN 94 H Creatinine 14.9 H* D Est GFR ( Amer) 4 Est GFR (Non-Af Amer) 3 Random Glucose 205 H Calcium 7.5 L Venous Blood Potassium Digoxin Assessment & Plan - Assessment and Plan (Free Text) Assessment: ESRD ON HD M W F .. MISSED HD 2/2 CLOTTED HeRO HD GRAFT ANEMIA OF CKD .. 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 NO URGENT NEED FOR STAT HD FOR HD CATH IN AM .. SO PT WILL GET HD C/O PO MEDS WILL D/W DR MCCLENDON FOR HD ACCESS - Date & Time Date: 11/08/17 Time: 16:00
[2017-11-09] MEDS ORDERED: Patient's Own Med (Acetaminophen/Oxycodone Hydr [Percocet 10/325 Mg Tab] 1 TAB) PO PRN (00:31)
[2017-11-09] MEDS ORDERED: Lactulose 10 gm/15 ml (Rectal Use) PR PRN (00:33)
[2017-11-09] MEDS: HYDROmorphone 0.5 mg/0.5 ml ISec IVP PRN ×4 (05:57→17:33)
[2017-11-09] MEDS: Verapamil SR 120 MG CApsule PO SCH ×2 (06:40→09:07)
--- NOTE | 2017-11-09 07:37 | CARD ---
APPROVED REPORT EKG Measurement Heart [id number] <Conclusion> Sinus rhythm with 1st degree AV block Left axis deviation Right bundle branch block Abnormal ECG
[2017-11-09] MEDS ORDERED: VIT B COMPLEX AND C PO SCH (09:00)
[2017-11-09] MEDS ORDERED: SEVELAMER CARBONATE 1600 MG PO SCH (09:00)
[2017-11-09] MEDS ORDERED: FOLIC ACID PO SCH (09:00)
[2017-11-09] MEDS ORDERED: Calcium Acetate 667 MG Capsule PO SCH (09:00)
[2017-11-09] MEDS: Insulin Lispro (humaLOG) 100 Units/ml Inj SC SCH ×4 (09:10→22:07)
[2017-11-09] MEDS: Omega-3-Acid Ethyl Esters 1 GM Cap PO SCH ×2 (09:12→16:49)
[2017-11-09] MEDS: Multivitamin Vitamin B Complex (Nephro-Vite) Tab PO SCH (09:15)
[2017-11-09] MEDS: Cholecalciferol 1,000 INTLU TAB PO SCH (09:16)
[2017-11-09] MEDS: Megestrol Acetate 40 mg/ml Cup PO SCH (10:07)
[2017-11-09] MEDS: Digoxin 125 mcg (0.125 mg) Tab PO SCH (11:59)
--- NOTE | 2017-11-09 12:18 | CP.PCM.PN ---
Subjective - Date & Time of Evaluation Date of Evaluation: 11/09/17 Time of Evaluation: 12:12 - Subjective Subjective: Vascular Surgery Progress note. Dr. Julien Pt seen and examined at bedside. Still reports joint pain. No N/V/D. No new complaints. No F/C. Right Femoral Dialysis catheter site clean, dry and intact. Objective - Vital Signs/Intake and Output Vital Signs (last 24 hours): Temp Pulse Resp BP Pulse Ox 97.9 F 71 12 179/96 H 98 11/09/17 12:00 11/09/17 08:39 11/09/17 08:39 11/09/17 08:39 11/09/17 08:39 Intake and Output: 11/09/17 11/09/17 06:59 18:59 Intake Total 240 Balance 240 - Medications Medications: Current Medications Alprazolam (Xanax) 0.5 mg PO Q8 PRN PRN Reason: Anxiety Last Admin: 11/09/17 12:05 Dose: 0.5 mg Apixaban (Eliquis) 2.5 mg PO Q12 [facility] PRN Reason: Protocol Atorvastatin Calcium (Lipitor) 40 mg PO HS [facility] Calcium Acetate (Phoslo) 667 mg PO TID [facility] Last Admin: 11/09/17 12:04 Dose: 667 mg Cholecalciferol (Vitamin D) 2,000 intlu PO DAILY [facility] Last Admin: 11/09/17 09:16 Dose: 2,000 intlu Digoxin (Digoxin) 0.125 mg PO MWF [facility] Last Admin: 11/09/17 11:59 Dose: 0.125 mg Diphenoxylate HCl/Atropine (Lomotil 0.025-2.5 Mg Tablet) 2 tab PO Q8 PRN PRN Reason: Diarrhea Home Med (Acetaminophen/Oxycodone Hydr [Percocet 10/325 Mg Tab]) 1 tab PO Q6H PRN PRN Reason: Pain, severe (8-10) Home Med (Febuxostat [Uloric]) 40 mg PO DAILY [facility] Home Med (Gabapentin Enacarbil [Horizant]) 300 mg PO DAILY [facility] Home Med (Gabapentin Enacarbil [Horizant]) 600 mg PO HS [facility] Home Med (Linaclotide [Linzess]) 145 mcg PO DAILY PRN PRN Reason: Constipation Hydromorphone HCl (Dilaudid) 0.5 mg IVP Q4 PRN PRN Reason: Pain, severe (8-10) Last Admin: 11/09/17 10:03 Dose: 0.5 mg Insulin Detemir (Levemir) 40 units SC HS [facility] Insulin Human Lispro (Humalog) 0 units SC ACCU-CHECK [facility] PRN Reason: Protocol Last Admin: 11/09/17 12:00 Dose: 4 units Lactulose (Generlac) 10 gm DC HS PRN PRN Reason: Constipation Megestrol Acetate (Megace) 600 mg PO DAILY [facility] Last Admin: 11/09/17 10:07 Dose: 600 mg Minoxidil (Minoxidil) 2.5 mg PO Q12 [facility] Last Admin: 11/09/17 09:14 Dose: Not Given Wclkz-2-Yvpj Ethyl Esters (Lovaza) 1 gm PO BID [facility] Last Admin: 11/09/17 09:12 Dose: 1 gm Paroxetine HCl (Paxil) 10 mg PO DAILY [facility] Last Admin: 11/09/17 09:15 Dose: 10 mg Sevelamer HCl (Renagel) 1,600 mg PO TID [facility] Last Admin: 11/09/17 12:05 Dose: 1,600 mg Tamsulosin HCl (Flomax) 0.4 mg PO DAILY [facility] Last Admin: 11/09/17 09:09 Dose: 0.4 mg Ticagrelor (Brilinta) 90 mg PO Q12 [facility] Verapamil HCl (Calan Sr Capsule) 120 mg PO DAILY [facility] Last Admin: 11/09/17 09:07 Dose: Not Given Vitamin B Complex/Vit C/Folic Acid (Nephro-Garcia) 1 tab PO DAILY [facility] Last Admin: 11/09/17 09:15 Dose: 1 tab - Labs Labs: 11/08/17 16:47 11/08/17 17:15 PT 11.6 Seconds (9.8-13.1) 11/08/17 17:15 INR 1.0 (0.9-1.2) 11/08/17 17:15 APTT 34.3 Seconds (25.6-37.1) 11/08/17 17:15 - Constitutional Appears: Well, Non-toxic, No Acute Distress - Head Exam Head Exam: ATRAUMATIC, NORMAL INSPECTION, NORMOCEPHALIC - Eye Exam Eye Exam: EOMI, Normal appearance - ENT Exam ENT Exam: Mucous Membranes Moist - Respiratory Exam Respiratory Exam: NORMAL BREATHING PATTERN. absent: Accessory Muscle Use, Respiratory Distress - GI/Abdominal Exam GI & Abdominal Exam: Soft. absent: Distended, Firm, Guarding, Rebound Additional comments: multiple well-healed abdominal scars noted - Extremities Exam Additional comments: Right Femoral Dialysis catheter in place. Dressing clean, dry and intact. No signs of hematoma. No tenderness noted. - Neurological Exam Neurological Exam: Alert, Awake, Oriented x3 Assessment and Plan - Assessment and Plan (Free Text) Assessment: 52yo M with ESRD and hx of multiple failed vascular dialysis accesses. S/p R Femoral temporary [place] HD access. POD 1. Plan: - Okay to use R femoral temp access for HD for now - Will discuss with Nephro for long-term HD plans - Patient may continue Brillinta at this time as we discuss case with Dr. Pinto and the patient is agreeable with possible further surgical plans. Further recs as per Dr. Anaya Najera PGY1 surgery pager: [phone]
[2017-11-09] MEDS ORDERED: Patient's Own Med (Insulin Detemir [Levemir] 40 units) SQ SCH (22:00)
[2017-11-09] MEDS ORDERED: Labetalol 5 mg/ml Inj 20ML IVP STA (22:44)
[2017-11-09] MEDS: HYDROmorphone 1 mg/ml ISec IVP PRN (23:28)
[2017-11-09] MEDS: GABAPENTIN ENACARBIL 600 MG PO SCH (23:34)
[2017-11-09] MEDS: Insulin Detemir 100 Units/ml Inj SC SCH (23:41)
--- NOTE | 2017-11-09 23:41 | CP.PCM.PN ---
Subjective - Date & Time of Evaluation Date of Evaluation: 11/09/17 Time of Evaluation: 16:00 - Subjective Subjective: SEEN IN ICU ON RENAL F/U HD JUST ABOUT TO START C/O GENERALIZED BODY ACHES S/P R FEMORAL CATH Objective - Vital Signs/Intake and Output Vital Signs (last 24 hours): Temp Pulse Resp BP Pulse Ox 97.8 F 77 12 191/104 H 97 11/09/17 20:00 11/09/17 20:00 11/09/17 20:00 11/09/17 20:00 11/09/17 20:00 Intake and Output: 11/09/17 11/10/17 18:59 06:59 Intake Total 440 Balance 440 - Medications Medications: Current Medications Alprazolam (Xanax) 0.5 mg PO Q8 PRN PRN Reason: Anxiety Last Admin: 11/09/17 12:05 Dose: 0.5 mg Apixaban (Eliquis) 2.5 mg PO Q12 [facility] PRN Reason: Protocol Atorvastatin Calcium (Lipitor) 40 mg PO HS [facility] Calcium Acetate (Phoslo) 667 mg PO TID [facility] Last Admin: 11/09/17 16:50 Dose: 667 mg Cholecalciferol (Vitamin D) 2,000 intlu PO DAILY [facility] Last Admin: 11/09/17 09:16 Dose: 2,000 intlu Digoxin (Digoxin) 0.125 mg PO MWF [facility] Last Admin: 11/09/17 11:59 Dose: 0.125 mg Diphenoxylate HCl/Atropine (Lomotil 0.025-2.5 Mg Tablet) 2 tab PO Q8 PRN PRN Reason: Diarrhea Home Med (Acetaminophen/Oxycodone Hydr [Percocet 10/325 Mg Tab]) 1 tab PO Q6H PRN PRN Reason: Pain, severe (8-10) Home Med (Febuxostat [Uloric]) 40 mg PO DAILY [facility] Home Med (Gabapentin Enacarbil [Horizant]) 300 mg PO DAILY [facility] Home Med (Gabapentin Enacarbil [Horizant]) 600 mg PO HS [facility] Home Med (Linaclotide [Linzess]) 145 mcg PO DAILY PRN PRN Reason: Constipation Hydromorphone HCl (Dilaudid) 2 mg IVP Q4 PRN PRN Reason: Pain, severe (8-10) Last Admin: 11/09/17 23:28 Dose: 2 mg Insulin Detemir (Levemir) 40 units SC HS [facility] Insulin Human Lispro (Humalog) 0 units SC ACCU-CHECK [facility] PRN Reason: Protocol Last Admin: 11/09/17 22:07 Dose: Not Given Lactulose (Generlac) 10 gm AL HS PRN PRN Reason: Constipation Megestrol Acetate (Megace) 600 mg PO DAILY [facility] Last Admin: 11/09/17 10:07 Dose: 600 mg Minoxidil (Minoxidil) 2.5 mg PO Q12 [facility] Last Admin: 11/09/17 09:14 Dose: Not Given Uzzyk-5-Endp Ethyl Esters (Lovaza) 1 gm PO BID [facility] Last Admin: 11/09/17 16:49 Dose: 1 gm Paroxetine HCl (Paxil) 10 mg PO DAILY [facility] Last Admin: 11/09/17 09:15 Dose: 10 mg Sevelamer HCl (Renagel) 1,600 mg PO TID [facility] Last Admin: 11/09/17 16:50 Dose: 1,600 mg Tamsulosin HCl (Flomax) 0.4 mg PO DAILY [facility] Last Admin: 11/09/17 09:09 Dose: 0.4 mg Ticagrelor (Brilinta) 90 mg PO Q12 [facility] Last Admin: 11/09/17 12:28 Dose: 90 mg Verapamil HCl (Calan Sr Capsule) 120 mg PO DAILY [facility] Last Admin: 11/09/17 09:07 Dose: Not Given Vitamin B Complex/Vit C/Folic Acid (Nephro-Garcia) 1 tab PO DAILY [facility] Last Admin: 11/09/17 09:15 Dose: 1 tab - Labs Labs: 11/08/17 16:47 11/08/17 17:15 PT 11.6 Seconds (9.8-13.1) 11/08/17 17:15 INR 1.0 (0.9-1.2) 11/08/17 17:15 APTT 34.3 Seconds (25.6-37.1) 11/08/17 17:15 Assessment and Plan - Assessment and Plan (Free Text) Assessment: ESRD .. ON HD VIA R FEMORAL CATH CLOTTED L ARM HERO GRAFT .. WE RUN OUT OF ACCESS PT IS AGREEABLE ABOUT PD D/W DR MCCLENDON FOR PD CATH INSERTION C/O CURRENT CARE C/O SAME MEDS
[2017-11-10] MEDS: HYDROmorphone 1 mg/ml ISec IVP PRN ×4 (03:26→15:52)
[2017-11-10 05:43] LABS: MEAN CELL VOLUME 80.9 fl (80.0-94.0); MEAN CORPUSCULAR HEMOGLOBIN 26.6 pg (27.0-31.0); MEAN CORPUSCULAR HGB CONC 32.9 g/dL (33.0-37.0); RBC 4.15 Mil/uL (4.40-5.90); RED CELL DISTRIBUTION WIDTH 16.3 % (11.5-14.5); WHITE BLOOD COUNT 7.8 K/uL (4.8-10.8)
[2017-11-10 05:48] LABS: INR 1.1 (0.9-1.2); PROTHROMBIN TIME 12.2 Seconds (9.8-13.1)
[2017-11-10] MEDS: Insulin Lispro (humaLOG) 100 Units/ml Inj SC SCH ×4 (06:03→22:55)
[2017-11-10 06:51] LABS: CALCIUM 7.3 mg/dL (8.4-10.2)
[2017-11-10] MEDS: Verapamil SR 120 MG CApsule PO SCH (08:15)
[2017-11-10] MEDS: Atropine-Diphenoxylate 0.025-2.5 mg Tab PO PRN (08:21)
[2017-11-10] MEDS: Multivitamin Vitamin B Complex (Nephro-Vite) Tab PO SCH (08:24)
[2017-11-10] MEDS: Megestrol Acetate 40 mg/ml Cup PO SCH (08:24)
[2017-11-10] MEDS: Omega-3-Acid Ethyl Esters 1 GM Cap PO SCH ×2 (08:25→16:59)
--- NOTE | 2017-11-10 10:04 | CP.PCM.CON ---
History of Present Illness - History of Present Illness History of Present Illness: Infectious Disease Consultation Note- asked to see this devora at the request of for bacteremia. HPI- Devora is a 54 y/o male with pmh of HTN, DM II, ESRD on HD with LUE clotted AVG with multiple attemps at declotting and fistulograms who presented to ED yesterday as per the recommendations of his PMD bc his outpatient HD attempts were all unsuccessful because of the AVG being clotted and hence he was advised to come to ED to have temp HD cathter placed so that he can get his HD as he had missed few sessions. He also states that he was having body aches and foggy mind. denies any fever or chills or cough or sob. states he might need PD since he has been having so much issues with his AVG . He denies any diarrhea or nausea or vomiting. he denies any MICHAEL. he also states he has had small sacral decub that used to be deeper but he has home Visiting nurse and that michael been cared for well and is healing. he denies any pus discharge or any redness from the LUE AVG site . he has sutures in place on the graft. PMH: as above PSH: exploratory laparotomy, failed renal transplant x 2, failed AVF x7 ALL: Aspirin, ketorolac, vanc Socialhx: Denies tobacco, etoh, recreational drug use FH: non-contributory PMD: Dr. Warren Review of Systems - Review of Systems Review of Systems: ROS- denies fever, chills, denies any MICHAEL, denies any nausea or vomiting, denies any abd. pain, denies any diarrhea had bodyaches and fogginess but states is better now. Past Patient History - Infectious Disease Hx of Infectious Diseases: None - Tetanus Immunizations Tetanus Immunization: Unknown - Past Medical History & Family History Past Medical History?: Yes - Past Social History Smoking Status: Never Smoked Alcohol: None Drugs: Denies Home Situation {Lives}: With Family - CARDIAC Hx Atrial Fibrillation: Yes Hx Cardia Arrhythmia: Yes Hx Congestive Heart Failure: No Hx Hypercholesterolemia: Yes Hx Hypertension: Yes Hx Peripheral Edema: Yes - PULMONARY Hx Sleep Apnea: Yes - NEUROLOGICAL Hx Neurological Disorder: No - HEENT Hx HEENT Problems: No - RENAL Hx Chronic Kidney Disease: Yes Hx Kidney Stones: No Other/Comment: on HD - ENDOCRINE/METABOLIC Hx Hypothyroidism: No - HEMATOLOGICAL/ONCOLOGICAL Hx Anemia: Yes - INTEGUMENTARY Hx Dermatological Problems: No - MUSCULOSKELETAL/RHEUMATOLOGICAL Hx Arthritis: Yes Hx Fractures: No Hx Osteoporosis: Yes - GASTROINTESTINAL Hx Gastritis: Yes - GENITOURINARY/GYNECOLOGICAL Hx Genitourinary Disorders: No - PSYCHIATRIC Hx Anxiety: Yes Hx Depression: Yes - SURGICAL HISTORY Hx Appendectomy: Yes - ANESTHESIA Hx Anesthesia: Yes Hx Anesthesia Reactions: Yes (AWAKE DURING THE SURGERY) Hx Malignant Hyperthermia: No Meds Allergies/Adverse Reactions: Allergies Allergy/AdvReac Type Severity Reaction Status Date / Time aspirin Allergy RASH Verified 11/08/17 15:24 ketorolac [From Toradol] Allergy RASH Verified 11/08/17 15:24 propoxyphene napsylate Allergy RASH Verified 11/08/17 15:24 [From Darvocet-N] vancomycin AdvReac RASH Verified 11/08/17 15:24 - Medications Medications: Current Medications Alprazolam (Xanax) 0.5 mg PO Q8 PRN PRN Reason: Anxiety Last Admin: 11/09/17 12:05 Dose: 0.5 mg Apixaban (Eliquis) 2.5 mg PO Q12 [facility] PRN Reason: Protocol Atorvastatin Calcium (Lipitor) 40 mg PO HS [facility] Last Admin: 11/09/17 23:38 Dose: 40 mg Calcium Acetate (Phoslo) 667 mg PO TID [facility] Last Admin: 11/10/17 08:24 Dose: 667 mg Cholecalciferol (Vitamin D) 2,000 intlu PO DAILY [facility] Last Admin: 11/09/17 09:16 Dose: 2,000 intlu Digoxin (Digoxin) 0.125 mg PO MWF [facility] Last Admin: 11/09/17 11:59 Dose: 0.125 mg Diphenoxylate HCl/Atropine (Lomotil 0.025-2.5 Mg Tablet) 2 tab PO Q8 PRN PRN Reason: Diarrhea Last Admin: 11/10/17 08:21 Dose: 2 tab Home Med (Acetaminophen/Oxycodone Hydr [Percocet 10/325 Mg Tab]) 1 tab PO Q6H PRN PRN Reason: Pain, severe (8-10) Home Med (Febuxostat [Uloric]) 40 mg PO DAILY [facility] Home Med (Gabapentin Enacarbil [Horizant]) 300 mg PO DAILY [facility] Home Med (Gabapentin Enacarbil [Horizant]) 600 mg PO HS [facility] Last Admin: 11/09/17 23:34 Dose: 600 mg Home Med (Linaclotide [Linzess]) 145 mcg PO DAILY PRN PRN Reason: Constipation Hydromorphone HCl (Dilaudid) 2 mg IVP Q4 PRN PRN Reason: Pain, severe (8-10) Last Admin: 11/10/17 08:30 Dose: 2 mg Insulin Detemir (Levemir) 40 units SC [facility] Last Admin: 11/09/17 23:41 Dose: 40 units Insulin Human Lispro (Humalog) 0 units SC ACCU-CHECK [facility] PRN Reason: Protocol Last Admin: 11/10/17 06:03 Dose: 3 units Labetalol HCl (Trandate) 200 mg PO Q8 [facility] Lactulose (Generlac) 10 gm [place] HS PRN PRN Reason: Constipation Megestrol Acetate (Megace) 600 mg PO DAILY [facility] Last Admin: 11/10/17 08:24 Dose: 600 mg Minoxidil (Minoxidil) 2.5 mg PO Q12 [facility] Last Admin: 11/09/17 23:39 Dose: 2.5 mg Azlye-7-Ebuw Ethyl Esters (Lovaza) 1 gm PO BID [facility] Last Admin: 11/10/17 08:25 Dose: 1 gm Paroxetine HCl (Paxil) 10 mg PO DAILY [facility] Last Admin: 11/10/17 08:24 Dose: 10 mg Sevelamer HCl (Renagel) 1,600 mg PO TID [facility] Last Admin: 11/10/17 08:22 Dose: 1,600 mg Tamsulosin HCl (Flomax) 0.4 mg PO DAILY [facility] Last Admin: 11/10/17 08:22 Dose: 0.4 mg Ticagrelor (Brilinta) 90 mg PO Q12 [facility] Last Admin: 11/10/17 08:14 Dose: 90 mg Verapamil HCl (Calan Sr Capsule) 120 mg PO DAILY [facility] Last Admin: 11/10/17 08:15 Dose: 120 mg Vitamin B Complex/Vit C/Folic Acid (Nephro-Garcia) 1 tab PO DAILY [facility] Last Admin: 11/10/17 08:24 Dose: 1 tab Physical Exam - Constitutional Appears: No Acute Distress - Head Exam Head Exam: ATRAUMATIC - Eye Exam Eye Exam: EOMI - ENT Exam ENT Exam: Normal Oropharynx - Neck Exam Neck exam: Positive for: Full Rom - Respiratory Exam Respiratory Exam: Clear to Auscultation Bilateral, NORMAL BREATHING PATTERN - Cardiovascular Exam Cardiovascular Exam: RRR, +S1, +S2 - GI/Abdominal Exam GI & Abdominal Exam: Normal Bowel Sounds, Soft Additional comments: NT, ND - Exam Additional comments: small 2 2 cm oval sacral decub stage 1-2 , no opening, no discharge - Extremities Exam Additional comments: right foot s/p TMA clean/dry/intact left foot no ulcers has slight echymosis on the toes ( states soap fell on his toes) LUE AVG has sutures in place, no discharge, no erythema no tenderness - Neurological Exam Neurological exam: Alert, Oriented x3 - Additional Findings Additional findings: lines- temp HD catheter in right femoral region ( was placed yesterday as per pt) Results - Vital Signs Recent Vital Signs: Last Vital Signs Temp 97.6 F 11/10/17 08:39 Pulse 84 11/10/17 09:44 Resp 13 11/10/17 08:39 BP 170/93 H 11/10/17 09:44 Pulse Ox 98 11/10/17 08:39 - Labs Result Diagrams: 11/10/17 04:40 11/10/17 04:40 Labs: Laboratory Results - last 24 hr 11/09/17 11/09/17 11/09/17 11:49 16:35 20:59 WBC RBC Hgb Hct MCV MCH MCHC RDW Plt Count PT INR Sodium Potassium Chloride Carbon Dioxide Anion Gap BUN Creatinine Est GFR ( Amer) Est GFR (Non-Af Amer) POC Glucose (mg/dL) 264 H 271 H 195 H Random Glucose Calcium 11/10/17 11/10/17 11/10/17 04:40 04:40 04:40 WBC 7.8 RBC 4.15 L Hgb 11.0 L Hct 33.6 L MCV 80.9 MCH 26.6 L MCHC 32.9 L RDW 16.3 H Plt Count 171 PT 12.2 INR 1.1 Sodium 137 Potassium 4.7 Chloride 98 Carbon Dioxide 18 L Anion Gap 26 H BUN 72 H Creatinine 12.5 H* Est GFR ( Amer) 5 Est GFR (Non-Af Amer) 4 POC Glucose (mg/dL) Random Glucose 272 H Calcium 7.3 L 11/10/17 05:41 WBC RBC Hgb Hct MCV MCH MCHC RDW Plt Count PT INR Sodium Potassium Chloride Carbon Dioxide Anion Gap BUN Creatinine Est GFR ( Amer) Est GFR (Non-Af Amer) POC Glucose (mg/dL) 237 H Random Glucose Calcium Microbiology 11/08/17 13:00 Blood-Venous Blood Culture - Preliminary Gram Positive Cocci 11/08/17 13:00 Blood-Venous Gram Stain - Final 11/08/17 17:00 Blood-Venous Blood Culture - Preliminary NO GROWTH AFTER 24 HOURS Accession No. : [id number] Patient Name / ID : KYM Brooke / [id number] Exam Date : 11/08/2017 16:40:28 ( Approved ) Study Comment : Sex / Age : M / 52Y Creator : Teodoro Garcia MD Dictator : Teodoro Garcia MD Director Regulatory Affairs : First Leveler : Teodoro Garcia MD Approver2 : Report Date : 11/08/2017 17:06:17 My Comment : PROCEDURE: CHEST RADIOGRAPH, 1 VIEW HISTORY: esrd COMPARISON: None available. FINDINGS: LUNGS: No acute pulmonary disease appreciable. Study is captured apical lordotic type format. PLEURA: No pneumothorax or pleural fluid seen. CARDIOVASCULAR: Stable cardiac silhouette. No pulmonary vascular congestion. Permanent left center venous dialysis catheter unchanged in position with numerous kissing right upper extremity/subclavian wall stents appreciated. OSSEOUS STRUCTURES: No significant abnormalities. VISUALIZED UPPER ABDOMEN: Normal. OTHER FINDINGS: None. IMPRESSION: No acute cardiopulmonary disease appreciated. Accession No. : [id number] Patient Name / ID : KYM Brooke / [id number] Exam Date : 11/08/2017 17:11:56 ( Approved ) Study Comment : Sex / Age : M / 6Y Creator : Teodoro Garcia MD Dictator : Teodoro Garcia MD Director Regulatory Affairs : First Leveler : Teodoro Garcia MD Approver2 : Report Date : 11/08/2017 18:09:50 My Comment : PROCEDURE: CT Abdomen and Pelvis without intravenous contrast HISTORY: nausea abdominal pain ; end-stage renal disease. COMPARISON: Noncontrast abdomen and pelvis CT 08/17/2017. TECHNIQUE: Helical CT of the abdomen and pelvis was performed without oral or intravenous contrast as per referring physician request. Contrast dose: None Radiation dose: Total exam DLP = 1042.80 mGy-cm. This CT exam was performed using one or more of the following dose reduction techniques: Automated exposure control, adjustment of the mA and/or kV according to patient size, and/or use of iterative reconstruction technique. FINDINGS: LOWER THORAX: Linear atelectasis or fibrosis is again seen the bilateral lung bases. Borderline cardiomegaly reiterated. LIVER: Unremarkable. No gross lesion or ductal dilatation. GALLBLADDER AND BILE DUCTS: Unremarkable. PANCREAS: Unremarkable. No gross lesion or ductal dilatation. Calcified peripancreatic lymph nodes are granulomata are identified, also seen in the gastrohepatic ligament. SPLEEN: Unremarkable. ADRENALS: Unremarkable. No mass. KIDNEYS AND URETERS: Markedly atrophic partially calcified kidneys are appreciated once again. A trophic transplant kidney identified at the right hemipelvis/right lower quadrant. No obstructive uropathy. VASCULATURE: Extensive non aneurysmal atherosclerotic arterial changes are seen throughout the small arteries of the abdomen with the abdominal aorta a least affected. BOWEL: No interval bowel obstruction appreciable with diastases or postoperative changes at the rectus abdominus musculature resulting in mesentery/ bowel close to the dermis. Nonspecific mild dilatation of small-bowel loops in the left lower quadrant is appreciated of uncertain origin. Consider follow-up radiography. APPENDIX: None identified once again. PERITONEUM: Unremarkable. No free fluid. No free air. LYMPH NODES: Unremarkable. No enlarged lymph nodes. BLADDER: The bladder is decompressed with a thickened wall potentially reflecting cystitis. Overall appearance is not dramatically changed in the interval. REPRODUCTIVE: Unremarkable. BONES: No acute fracture. OTHER FINDINGS: Bilateral buttocks granulomata are appreciated. IMPRESSION: 1. Limited dilatation of small-bowel loops of low left lower quadrant is appreciated which is nonspecific and appears very definitive bowel obstruction pattern is not apparent at this time with this is the same area that was more probably dilated in the prior bowel obstruction on 08/17/2017 and follow-up imaging is advised to exclude potential worsening of bowel dilatation that might indicate developing ileus or bowel obstruction. The lack of oral contrast and intravenous contrast agents limits interpretation. 2. No obstructive uropathy bilaterally. Grossly atrophic partially calcified bilateral [place] kidneys are identified with right hemipelvis/lower quadrant transplant kidney appear atrophic once again. 3. Abdominal wall diastases reiterated with bowel close the surface of the dermis. Limited dilatation of small-bowel loops at the left lower quadrant is appreciated which is nonspecific at this time. Given the pattern for obstruction previously demonstrated with an epicenter here, follow-up bowel imaging is advised to exclude potential early obstruction or ileus. 4. Additional lesser findings as discussed above. Assessment & Plan (1) AV shunt malfunction Status: Acute (2) CKD (chronic kidney disease) stage 5, GFR less than 15 ml/min Status: Acute (3) Dialysis AV fistula malfunction Status: Acute (4) Bacteremia due to Gram-positive bacteria Status: Acute - Assessment and Plan (Free Text) Assessment: A/P- 52 year old male with ESRD on HD with malfunctioning LUE AVF site and now found to have GPC in blood cx. source of GPC bacteremia most likely from the AVG as pt. has had multiple recent declotting attempts at the site. sacral decub superficial and almost all healed and hence unlikely source. plan- await ID and sensitivity of the GPC in blood cx. in light of vanco allergy (hives) , start pt. on IV daptomycin HD dosage pending sensitivity profile. check CPK while on daptomycin. check 2 more blood cx one from peripheral and one from the AVG. check EChO r/o any vegetations. AVG malfunction and management as per renal and surgical team. All above d/w patient and he verbalizes full understanding of all above. Thank you for allowing me to take part in the care of this patient. all labs, imaging and med notes reviewed. ICU time spent 60 minutes.
[2017-11-10] MEDS: Cholecalciferol 1,000 INTLU TAB PO SCH (10:50)
[2017-11-10] MEDS: GABAPENTIN ENACARBIL 300 MG PO SCH (10:51)
[2017-11-10 21:47] LABS: HEPATITIS B SURFACE AG Negative (NEGATIVE)
[2017-11-10 21:52] LABS: HEPATITIS B CORE AB NEGATIVE (NEGATIVE)
[2017-11-10 22:04] LABS: HEPATITIS C ANTIBODY NEGATIVE (NEGATIVE)
--- NOTE | 2017-11-10 22:48 | CP.PCM.PN ---
Subjective - Date & Time of Evaluation Date of Evaluation: 11/10/17 Time of Evaluation: 15:00 - Subjective Subjective: SEEN ON RENAL F/U IN ICU FEELS BETTER YESTERDAY WAS C/O GENERALISED BODY ACHES WAITING FOR HIS HD TODAY Objective - Vital Signs/Intake and Output Vital Signs (last 24 hours): Temp Pulse Resp BP Pulse Ox 99.0 F 78 13 106/65 95 11/10/17 20:18 11/10/17 21:00 11/10/17 20:18 11/10/17 20:18 11/10/17 20:18 Intake and Output: 11/10/17 11/11/17 18:59 06:59 Intake Total 477 Balance 477 - Medications Medications: Current Medications Allopurinol (Zyloprim) 100 mg PO DAILY [facility] Alprazolam (Xanax) 0.5 mg PO Q8 PRN PRN Reason: Anxiety Last Admin: 11/09/17 12:05 Dose: 0.5 mg Apixaban (Eliquis) 2.5 mg PO Q12 [facility] PRN Reason: Protocol Apixaban (Eliquis) 2.5 mg PO BID [facility] PRN Reason: Protocol Atorvastatin Calcium (Lipitor) [address] [facility] Last Admin: 11/09/17 23:38 Dose: 40 mg Calcium Acetate (Phoslo) 667 mg PO TID [facility] Last Admin: 11/10/17 16:58 Dose: 667 mg Cholecalciferol (Vitamin D) 2,000 intlu PO DAILY [facility] Last Admin: 11/10/17 10:50 Dose: 2,000 intlu Digoxin (Digoxin) 0.125 mg PO MWF [facility] Last Admin: 11/09/17 11:59 Dose: 0.125 mg Diphenoxylate HCl/Atropine (Lomotil 0.025-2.5 Mg Tablet) 2 tab PO Q8 PRN PRN Reason: Diarrhea Last Admin: 11/10/17 08:21 Dose: 2 tab Home Med (Gabapentin Enacarbil [Horizant]) 300 mg PO DAILY [facility] Last Admin: 11/10/17 10:51 Dose: 300 mg Home Med (Gabapentin Enacarbil [Horizant]) [address] [facility] Last Admin: 11/09/17 23:34 Dose: 600 mg Hydromorphone HCl (Dilaudid) 2 mg IVP Q4 PRN PRN Reason: Pain, severe (8-10) Last Admin: 11/10/17 15:52 Dose: 2 mg Daptomycin 550 mg/ Sodium (Chloride) 100 mls @ 100 mls/hr IV Q48H [facility] PRN Reason: Protocol Stop: 11/15/17 14:01 Insulin Detemir (Levemir) 40 units SC HS [facility] Last Admin: 11/09/17 23:41 Dose: 40 units Insulin Human Lispro (Humalog) 0 units SC ACCU-CHECK [facility] PRN Reason: Protocol Last Admin: 11/10/17 17:03 Dose: 2 units Labetalol HCl (Trandate) 200 mg PO Q8 [facility] Last Admin: 11/10/17 18:33 Dose: Not Given Lactulose (Generlac) 10 gm [place] HS PRN PRN Reason: Constipation Megestrol Acetate (Megace) 600 mg PO DAILY [facility] Last Admin: 11/10/17 08:24 Dose: 600 mg Minoxidil (Minoxidil) 2.5 mg PO Q12 [facility] Last Admin: 11/10/17 12:04 Dose: 2.5 mg Oihsp-3-Splh Ethyl Esters (Lovaza) 1 gm PO BID [facility] Last Admin: 11/10/17 16:59 Dose: 1 gm Paroxetine HCl (Paxil) 10 mg PO DAILY [facility] Last Admin: 11/10/17 08:24 Dose: 10 mg Sevelamer HCl (Renagel) 1,600 mg PO TID [facility] Last Admin: 11/10/17 16:59 Dose: 1,600 mg Tamsulosin HCl (Flomax) 0.4 mg PO DAILY [facility] Last Admin: 11/10/17 08:22 Dose: 0.4 mg Ticagrelor (Brilinta) 90 mg PO Q12 [facility] Last Admin: 11/10/17 08:14 Dose: 90 mg Verapamil HCl (Calan Sr Capsule) 120 mg PO DAILY [facility] Last Admin: 11/10/17 08:15 Dose: 120 mg Vitamin B Complex/Vit C/Folic Acid (Nephro-Garcia) 1 tab PO DAILY [facility] Last Admin: 11/10/17 08:24 Dose: 1 tab - Labs Labs: 11/10/17 04:40 11/10/17 04:40 PT 12.2 Seconds (9.8-13.1) 11/10/17 04:40 INR 1.1 (0.9-1.2) 11/10/17 04:40 APTT 34.3 Seconds (25.6-37.1) 11/08/17 17:15 Assessment and Plan - Assessment and Plan (Free Text) Assessment: ESRD ON HD .. HD TODAY .. 2ND THIS WEEK ANEMIA OF CKD .. H/H STABLE SEPSIS .. +VE B/C MMP P : ESRD ON HD .. WILL SWITCH TO PD 2/ LACK OF VASCULAR ACCESS WAS STARTED ON DAPTOMYCINE BY ID C/O PRESENT CARE
[2017-11-10] MEDS: GABAPENTIN ENACARBIL 600 MG PO SCH (22:52)
[2017-11-10] MEDS: Insulin Detemir 100 Units/ml Inj SC SCH (22:54)
--- NOTE | 2017-11-10 23:43 | CP.PCM.PN ---
Subjective - Date & Time of Evaluation Date of Evaluation: 11/10/17 Time of Evaluation: 23:42 - Subjective Subjective: Surgery progress note- Dr. Julien Plan to take to OR tomorrow for peritoneal dialysis catheter Hold DVT ppx c/w antibiotics NPO after MN discussed w/ Dr. Julien surgical attending PGY1 Objective - Vital Signs/Intake and Output Vital Signs (last 24 hours): Temp Pulse Resp BP Pulse Ox 99.0 F 78 13 106/65 95 11/10/17 20:18 11/10/17 21:00 11/10/17 20:18 11/10/17 20:18 11/10/17 20:18 Intake and Output: 11/10/17 11/11/17 18:59 06:59 Intake Total 477 Balance 477 - Medications Medications: Current Medications Allopurinol (Zyloprim) 100 mg PO DAILY [facility] Alprazolam (Xanax) 0.5 mg PO Q8 PRN PRN Reason: Anxiety Last Admin: 11/09/17 12:05 Dose: 0.5 mg Apixaban (Eliquis) 2.5 mg PO Q12 [facility] PRN Reason: Protocol Atorvastatin Calcium (Lipitor) 40 mg PO [facility] Last Admin: 11/10/17 22:53 Dose: 40 mg Calcium Acetate (Phoslo) 667 mg PO TID [facility] Last Admin: 11/10/17 16:58 Dose: 667 mg Cholecalciferol (Vitamin D) 2,000 intlu PO DAILY [facility] Last Admin: 11/10/17 10:50 Dose: 2,000 intlu Digoxin (Digoxin) 0.125 mg PO [facility] Last Admin: 11/09/17 11:59 Dose: 0.125 mg Diphenoxylate HCl/Atropine (Lomotil 0.025-2.5 Mg Tablet) 2 tab PO Q8 PRN PRN Reason: Diarrhea Last Admin: 11/10/17 08:21 Dose: 2 tab Home Med (Gabapentin Enacarbil [Horizant]) 300 mg PO DAILY [facility] Last Admin: 11/10/17 10:51 Dose: 300 mg Home Med (Gabapentin Enacarbil [Horizant]) 600 mg PO [facility] Last Admin: 11/10/17 22:52 Dose: 600 mg Hydromorphone HCl (Dilaudid) 2 mg IVP Q4 PRN PRN Reason: Pain, severe (8-10) Last Admin: 11/10/17 15:52 Dose: 2 mg Daptomycin 550 mg/ Sodium (Chloride) 100 mls @ 100 mls/hr IV Q48H [facility] PRN Reason: Protocol Stop: 11/15/17 14:01 Last Admin: 11/10/17 23:36 Dose: 100 mls/hr Insulin Detemir (Levemir) 40 units SC HS [facility] Last Admin: 11/10/17 22:54 Dose: 40 units Insulin Human Lispro (Humalog) 0 units SC ACCU-CHECK [facility] PRN Reason: Protocol Last Admin: 11/10/17 22:55 Dose: Not Given Labetalol HCl (Trandate) 200 mg PO Q8 [facility] Last Admin: 11/10/17 18:33 Dose: Not Given Lactulose (Generlac) 10 gm [place] HS PRN PRN Reason: Constipation Megestrol Acetate (Megace) 600 mg PO DAILY [facility] Last Admin: 11/10/17 08:24 Dose: 600 mg Minoxidil (Minoxidil) 2.5 mg PO Q12 [facility] Last Admin: 11/10/17 22:53 Dose: 2.5 mg Dmdrq-4-Tsqv Ethyl Esters (Lovaza) 1 gm PO BID [facility] Last Admin: 11/10/17 16:59 Dose: 1 gm Paroxetine HCl (Paxil) 10 mg PO DAILY [facility] Last Admin: 11/10/17 08:24 Dose: 10 mg Sevelamer HCl (Renagel) 1,600 mg PO TID [facility] Last Admin: 11/10/17 16:59 Dose: 1,600 mg Tamsulosin HCl (Flomax) 0.4 mg PO DAILY [facility] Last Admin: 11/10/17 08:22 Dose: 0.4 mg Ticagrelor (Brilinta) 90 mg PO Q12 [facility] Last Admin: 11/10/17 22:55 Dose: 90 mg Verapamil HCl (Calan Sr Capsule) 120 mg PO DAILY [facility] Last Admin: 11/10/17 08:15 Dose: 120 mg Vitamin B Complex/Vit C/Folic Acid (Nephro-Garcia) 1 tab PO DAILY [facility] Last Admin: 11/10/17 08:24 Dose: 1 tab - Labs Labs: 11/10/17 04:40 11/10/17 04:40 PT 12.2 Seconds (9.8-13.1) 11/10/17 04:40 INR 1.1 (0.9-1.2) 11/10/17 04:40 APTT 34.3 Seconds (25.6-37.1) 11/08/17 17:15
[2017-11-11] MEDS: HYDROmorphone 1 mg/ml ISec IVP PRN ×6 (00:10→21:58)
--- NOTE | 2017-11-11 04:58 | HP ---
LATE ENTRY FOR HISTORY AND PHYSICAL HISTORY OF PRESENT ILLNESS: The patient is a 52-year-old male with a history of multiple medical/surgical problems, currently on hemodialysis. The patient was referred to emergency room after he has nonfunctioning AV shunts. A surgical consultation was called for placing a femoral catheter for hemodialysis, and the patient was admitted for further management of severe hypertension also. The patient complained of back pain, but there is no shortness of breath or chest pain at this time. Other review of systems is negative. ALLERGIES: THE PATIENT HAS ALLERGY TO ASPIRIN, VANCOMYCIN, KETOROLAC, PROPOXYPHENE. PAST MEDICAL HISTORY: Hypertension; type 2 diabetes mellitus; coronary artery disease, status post PCI; end-stage renal disease, on hemodialysis. SOCIAL HISTORY: No history of smoking, EtOH, or substance abuse. FAMILY HISTORY: Noncontributory. MEDICATIONS: Medications were reviewed. As per MAR. PHYSICAL EXAMINATION: GENERAL: The patient is in bed and not in any cardiopulmonary distress. VITAL SIGNS: Blood pressure 151/90, temperature 98.5, respiratory rate 12, pulse 76. HEENT: Slightly pale mucosa of the conjunctivae. NECK: Supple. No JVD. No carotid bruit. No lymph node. No thyromegaly. CHEST AND LUNGS: Bilateral symmetrical expansion. Good air exchange. No rales. No rhonchi. CARDIOVASCULAR SYSTEM: PMI not localized. S1, S2. No additional sounds. ABDOMEN: Normoactive bowel sounds. No tenderness. No organomegaly. No masses. EXTREMITIES: No cyanosis, no clubbing, no edema. The patient has right transmetatarsal amputation. PRODUCE ASSISTANT: Alert, awake, oriented x2. Moves all extremities equally. ASSESSMENT: Malfunctioning arteriovenous shunt; end-stage renal disease, on hemodialysis; uncontrolled hypertension; type 2 diabetes mellitus; coronary artery disease, status post percutaneous coronary intervention. PLAN: We will continue hemodialysis through the femoral shunt. Continue current medications and follow recommendations of Vascular Surgery and product tester fiberglass. Mildred Warren MD
[2017-11-11 05:29] LABS: HEMOGLOBIN 10.9 g/dL (12.0-18.0); MEAN CORPUSCULAR HEMOGLOBIN 26.5 pg (27.0-31.0); MEAN CORPUSCULAR HGB CONC 32.7 g/dL (33.0-37.0); RBC 4.13 Mil/uL (4.40-5.90); RED CELL DISTRIBUTION WIDTH 16.5 % (11.5-14.5); WHITE BLOOD COUNT 7.2 K/uL (4.8-10.8)
[2017-11-11] MEDS: Insulin Lispro (humaLOG) 100 Units/ml Inj SC SCH ×4 (06:39→21:58)
--- NOTE | 2017-11-11 08:35 | CP.PCM.PN ---
Subjective - Date & Time of Evaluation Date of Evaluation: 11/11/17 Time of Evaluation: 07:15 - Subjective Subjective: Surgery Progress note. Dr. Julien Pt seen and examined at bedside. No acute events overnight. No N/V/D. Denies any F/C. No new complaints. Objective - Vital Signs/Intake and Output Vital Signs (last 24 hours): Temp Pulse Resp BP Pulse Ox 98.7 F 85 16 148/74 95 11/11/17 05:00 11/11/17 05:00 11/11/17 05:00 11/11/17 05:00 11/11/17 05:00 Intake and Output: 11/11/17 11/11/17 06:59 18:59 Intake Total 100 Balance 100 - Medications Medications: Current Medications Allopurinol (Zyloprim) 100 mg PO DAILY [facility] Alprazolam (Xanax) 0.5 mg PO Q8 PRN PRN Reason: Anxiety Last Admin: 11/09/17 12:05 Dose: 0.5 mg Apixaban (Eliquis) 2.5 mg PO Q12 [facility] PRN Reason: Protocol Atorvastatin Calcium (Lipitor) 40 mg PO [facility] Last Admin: 11/10/17 22:53 Dose: 40 mg Calcium Acetate (Phoslo) 667 mg PO TID [facility] Last Admin: 11/10/17 16:58 Dose: 667 mg Cholecalciferol (Vitamin D) 2,000 intlu PO DAILY [facility] Last Admin: 11/10/17 10:50 Dose: 2,000 intlu Digoxin (Digoxin) 0.[facility] Last Admin: 11/09/17 11:59 Dose: 0.125 mg Diphenoxylate HCl/Atropine (Lomotil 0.025-2.5 Mg Tablet) 2 tab PO Q8 PRN PRN Reason: Diarrhea Last Admin: 11/10/17 08:21 Dose: 2 tab Home Med (Gabapentin Enacarbil [Horizant]) 300 mg PO DAILY [facility] Last Admin: 11/10/17 10:51 Dose: 300 mg Home Med (Gabapentin Enacarbil [Horizant]) 600 mg PO [facility] Last Admin: 11/10/17 22:52 Dose: 600 mg Hydromorphone HCl (Dilaudid) 2 mg IVP Q4 PRN PRN Reason: Pain, severe (8-10) Last Admin: 11/11/17 04:05 Dose: 2 mg Daptomycin 550 mg/ Sodium (Chloride) 100 mls @ 100 mls/hr IV Q48H [facility] PRN Reason: Protocol Stop: 11/15/17 14:01 Last Admin: 11/10/17 23:36 Dose: 100 mls/hr Insulin Detemir (Levemir) 40 units SC HS [facility] Last Admin: 11/10/17 22:54 Dose: 40 units Insulin Human Lispro (Humalog) 0 units SC ACCU-CHECK [facility] PRN Reason: Protocol Last Admin: 11/11/17 06:39 Dose: 6 units Labetalol HCl (Trandate) 200 mg PO Q8 [facility] Last Admin: 11/11/17 01:55 Dose: 200 mg Lactulose (Generlac) 10 gm [place] HS PRN PRN Reason: Constipation Megestrol Acetate (Megace) 600 mg PO DAILY [facility] Last Admin: 11/10/17 08:24 Dose: 600 mg Minoxidil (Minoxidil) 2.5 mg PO Q12 [facility] Last Admin: 11/10/17 22:53 Dose: 2.5 mg Kbcqn-3-Dido Ethyl Esters (Lovaza) 1 gm PO BID [facility] Last Admin: 11/10/17 16:59 Dose: 1 gm Paroxetine HCl (Paxil) 10 mg PO DAILY [facility] Last Admin: 11/10/17 08:24 Dose: 10 mg Sevelamer HCl (Renagel) 1,600 mg PO TID [facility] Last Admin: 11/10/17 16:59 Dose: 1,600 mg Tamsulosin HCl (Flomax) 0.4 mg PO DAILY [facility] Last Admin: 11/10/17 08:22 Dose: 0.4 mg Ticagrelor (Brilinta) 90 mg PO Q12 [facility] Last Admin: 11/10/17 22:55 Dose: 90 mg Verapamil HCl (Calan Sr Capsule) 120 mg PO DAILY [facility] Last Admin: 11/10/17 08:15 Dose: 120 mg Vitamin B Complex/Vit C/Folic Acid (Nephro-Garcia) 1 tab PO DAILY [facility] Last Admin: 11/10/17 08:24 Dose: 1 tab - Labs Labs: 11/11/17 04:20 11/11/17 04:20 PT 12.2 Seconds (9.8-13.1) 11/10/17 04:40 INR 1.1 (0.9-1.2) 11/10/17 04:40 APTT 34.3 Seconds (25.6-37.1) 11/08/17 17:15 - Constitutional Appears: Well, Non-toxic, No Acute Distress - Head Exam Head Exam: ATRAUMATIC, NORMAL INSPECTION, NORMOCEPHALIC - Eye Exam Eye Exam: EOMI, Normal appearance - ENT Exam ENT Exam: Mucous Membranes Moist - Respiratory Exam Respiratory Exam: NORMAL BREATHING PATTERN. absent: Accessory Muscle Use, Respiratory Distress - Cardiovascular Exam Cardiovascular Exam: RRR. absent: JVD - GI/Abdominal Exam GI & Abdominal Exam: Soft. absent: Distended, Firm, Guarding, Rigid, Tenderness , Rebound - Extremities Exam Extremities Exam: Normal Inspection - Neurological Exam Neurological Exam: Alert, Awake, Oriented x3 - Psychiatric Exam Psychiatric exam: Normal Affect, Normal Mood - Skin Skin Exam: Dry, Intact, Normal Color, Warm Assessment and Plan - Assessment and Plan (Free Text) Assessment: 52yo M with need for long-term HD access Plan: - OR cancelled today due to positive blood cultures - Resume diet - Repeat Blood Cultures - Continue IV Abx as per ID - Hold Brillinta starting today, 11/11 - Hold Eliqualize 11/13 - Will plan for OR early next week for PD catheter placement Further recs as per Dr. Anaya Najera PGY1 surgery pager: [phone]
[2017-11-11] MEDS: Verapamil SR 120 MG CApsule PO SCH (08:44)
[2017-11-11] MEDS: Cholecalciferol 1,000 INTLU TAB PO SCH (08:45)
[2017-11-11] MEDS: Omega-3-Acid Ethyl Esters 1 GM Cap PO SCH ×2 (08:45→17:30)
[2017-11-11] MEDS: Multivitamin Vitamin B Complex (Nephro-Vite) Tab PO SCH (08:46)
[2017-11-11] MEDS: Digoxin 125 mcg (0.125 mg) Tab PO SCH (08:47)
[2017-11-11] MEDS: GABAPENTIN ENACARBIL 300 MG PO SCH (08:48)
[2017-11-11] MEDS: Atropine-Diphenoxylate 0.025-2.5 mg Tab PO PRN (08:54)
[2017-11-11] MEDS: Megestrol Acetate 40 mg/ml Cup PO SCH (08:55)
--- NOTE | 2017-11-11 09:49 | CP.PCM.PN ---
Subjective - Date & Time of Evaluation Date of Evaluation: 11/11/17 Time of Evaluation: 09:49 - Subjective Subjective: ID Note- Pt. seen and examined in tele floor today. pt. denies any fever or chills. he states he feels better today. he states he will be evaluated for peritoneal dialysis plcement on tuesday since he has failing AVG. Objective - Vital Signs/Intake and Output Vital Signs (last 24 hours): Temp Pulse Resp BP Pulse Ox 98.5 F 83 20 130/59 L 100 11/11/17 08:36 11/11/17 09:00 11/11/17 08:36 11/11/17 08:36 11/11/17 08:36 Intake and Output: 11/11/17 11/11/17 06:59 18:59 Intake Total 100 Balance 100 - Medications Medications: Current Medications Allopurinol (Zyloprim) 100 mg PO DAILY [facility] Last Admin: 11/11/17 08:44 Dose: 100 mg Alprazolam (Xanax) 0.5 mg PO Q8 PRN PRN Reason: Anxiety Last Admin: 11/09/17 12:05 Dose: 0.5 mg Apixaban (Eliquis) 2.5 mg PO Q12 [facility] PRN Reason: Protocol Last Admin: 11/11/17 09:19 Dose: 2.5 mg Atorvastatin Calcium (Lipitor) 40 mg PO [facility] Last Admin: 11/10/17 22:53 Dose: 40 mg Calcium Acetate (Phoslo) 667 mg PO TID [facility] Last Admin: 11/11/17 08:45 Dose: 667 mg Cholecalciferol (Vitamin D) 2,000 intlu PO DAILY [facility] Last Admin: 11/11/17 08:45 Dose: 2,000 intlu Digoxin (Digoxin) 0.125 mg PO MWF [facility] Last Admin: 11/11/17 08:47 Dose: 0.125 mg Diphenoxylate HCl/Atropine (Lomotil 0.025-2.5 Mg Tablet) 2 tab PO Q8 PRN PRN Reason: Diarrhea Last Admin: 11/11/17 08:54 Dose: 2 tab Home Med (Gabapentin Enacarbil [Horizant]) 300 mg PO DAILY [facility] Last Admin: 11/11/17 08:48 Dose: 300 mg Home Med (Gabapentin Enacarbil [Horizant]) 600 mg PO [facility] Last Admin: 11/10/17 22:52 Dose: 600 mg Hydromorphone HCl (Dilaudid) 2 mg IVP Q4 PRN PRN Reason: Pain, severe (8-10) Last Admin: 11/11/17 08:37 Dose: 2 mg Daptomycin 550 mg/ Sodium (Chloride) 100 mls @ 100 mls/hr IV Q48H [facility] PRN Reason: Protocol Stop: 11/15/17 14:01 Last Admin: 11/10/17 23:36 Dose: 100 mls/hr Insulin Detemir (Levemir) 40 units SC [facility] Last Admin: 11/10/17 22:54 Dose: 40 units Insulin Human Lispro (Humalog) 0 units SC ACCU-CHECK [facility] PRN Reason: Protocol Last Admin: 11/11/17 06:39 Dose: 6 units Labetalol HCl (Trandate) 200 mg PO Q8 [facility] Last Admin: 11/11/17 09:18 Dose: Not Given Lactulose (Generlac) 10 gm [place] HS PRN PRN Reason: Constipation Megestrol Acetate (Megace) 600 mg PO DAILY [facility] Last Admin: 11/11/17 08:55 Dose: Not Given Minoxidil (Minoxidil) 2.5 mg PO Q12 [facility] Last Admin: 11/11/17 08:55 Dose: 2.5 mg [id number]-[id number] Ethyl Esters (Lovaza) 1 gm PO BID [facility] Last Admin: 11/11/17 08:45 Dose: 1 gm Paroxetine HCl (Paxil) 10 mg PO DAILY [facility] Last Admin: 11/11/17 08:47 Dose: 10 mg Sevelamer HCl (Renagel) 1,600 mg PO TID [facility] Last Admin: 11/11/17 08:45 Dose: 1,600 mg Tamsulosin HCl (Flomax) 0.4 mg PO DAILY [facility] Last Admin: 11/11/17 08:46 Dose: 0.4 mg Ticagrelor (Brilinta) 90 mg PO Q12 [facility] Last Admin: 11/10/17 22:55 Dose: 90 mg Verapamil HCl (Calan Sr Capsule) 120 mg PO DAILY [facility] Last Admin: 11/11/17 08:44 Dose: 120 mg Vitamin B Complex/Vit C/Folic Acid (Nephro-Garcia) 1 tab PO DAILY [facility] Last Admin: 11/11/17 08:46 Dose: 1 tab - Labs Labs: - Additional Findings Additional findings: - Constitutional Appears: No Acute Distress - Head Exam Head Exam: ATRAUMATIC - Eye Exam Eye Exam: EOMI - ENT Exam ENT Exam: Normal Oropharynx - Neck Exam Neck exam: Positive for: Full Rom - Respiratory Exam Respiratory Exam: Clear to Auscultation Bilateral, NORMAL BREATHING PATTERN - Cardiovascular Exam Cardiovascular Exam: RRR, +S1, +S2 - GI/Abdominal Exam GI & Abdominal Exam: Normal Bowel Sounds, Soft Additional comments: NT, ND - Exam Additional comments: small 2 x 2 cm oval sacral decub stage 1-2 , no opening, no discharge - Extremities Exam Additional comments: right foot s/p TMA clean/dry/intact left foot no ulcers has slight echymosis on the toes ( states soap fell on his toes) LUE AVG has sutures in place, no discharge, no erythema no tenderness - Neurological Exam Neurological exam: Alert, Oriented x3 - Additional Findings Additional findings: lines- temp HD catheter in right femoral region ( was placed yesterday as per pt) Laboratory Results - last 72 hr 11/09/17 11/09/17 11/09/17 05:31 11:49 16:35 WBC RBC Hgb Hct MCV MCH MCHC RDW Plt Count PT INR Sodium Potassium Chloride Carbon Dioxide Anion Gap BUN Creatinine Est GFR ( Amer) Est GFR (Non-Af Amer) POC Glucose (mg/dL) 298 H 264 H 271 H Random Glucose Calcium Total Creatine Kinase Hep Bs Antigen Hep Bs Antibody Hep B Core IgM Ab Hepatitis C Antibody 11/09/17 11/10/17 11/10/17 20:59 04:40 04:40 WBC 7.8 RBC 4.15 L Hgb 11.0 L Hct 33.6 L MCV 80.9 MCH 26.6 L MCHC 32.9 L RDW 16.3 H Plt Count 171 PT 12.2 INR 1.1 Sodium Potassium Chloride Carbon Dioxide Anion Gap BUN Creatinine Est GFR ( Amer) Est GFR (Non-Af Amer) POC Glucose (mg/dL) 195 H Random Glucose Calcium Total Creatine Kinase Hep Bs Antigen Hep Bs Antibody Hep B Core IgM Ab Hepatitis C Antibody 11/10/17 11/10/17 11/10/17 04:40 05:41 11:09 WBC RBC Hgb Hct MCV MCH MCHC RDW Plt Count PT INR Sodium 137 Potassium 4.7 Chloride 98 Carbon Dioxide 18 L Anion Gap 26 H BUN 72 H Creatinine 12.5 H* Est GFR ( Amer) 5 Est GFR (Non-Af Amer) 4 POC Glucose (mg/dL) 237 H 185 H Random Glucose 272 H Calcium 7.3 L Total Creatine Kinase Hep Bs Antigen Hep Bs Antibody Hep B Core IgM Ab Hepatitis C Antibody 11/10/17 11/10/17 11/10/17 14:00 16:36 19:40 WBC RBC Hgb Hct MCV MCH MCHC RDW Plt Count PT INR Sodium Potassium Chloride Carbon Dioxide Anion Gap BUN Creatinine Est GFR ( Amer) Est GFR (Non-Af Amer) POC Glucose (mg/dL) 161 H Random Glucose Calcium Total Creatine Kinase 1017 H Hep Bs Antigen Negative Hep Bs Antibody Hep B Core IgM Ab Negative Hepatitis C Antibody Negative 11/10/17 11/10/17 11/11/17 19:40 20:54 04:20 WBC 7.2 RBC 4.13 L Hgb 10.9 L Hct 33.4 L MCV 81.0 MCH 26.5 L MCHC 32.7 L RDW 16.5 H Plt Count 187 PT INR Sodium Potassium Chloride Carbon Dioxide Anion Gap BUN Creatinine Est GFR ( Amer) Est GFR (Non-Af Amer) POC Glucose (mg/dL) 181 H Random Glucose Calcium Total Creatine Kinase Hep Bs Antigen Hep Bs Antibody Positive Hep B Core IgM Ab Hepatitis C Antibody 11/11/17 11/11/17 11/11/17 04:20 06:01 10:43 WBC RBC Hgb Hct MCV MCH MCHC RDW Plt Count PT INR Sodium 138 Potassium 4.3 Chloride 98 Carbon Dioxide 21 L Anion Gap 23 H BUN 49 H Creatinine 9.9 H* D Est GFR ( Amer) 7 Est GFR (Non-Af Amer) 6 POC Glucose (mg/dL) 332 H 259 H Random Glucose 329 H Calcium 8.0 L Total Creatine Kinase Hep Bs Antigen Hep Bs Antibody Hep B Core IgM Ab Hepatitis C Antibody 11/11/17 16:53 WBC RBC Hgb Hct MCV MCH MCHC RDW Plt Count PT INR Sodium Potassium Chloride Carbon Dioxide Anion Gap BUN Creatinine Est GFR ( Amer) Est GFR (Non-Af Amer) POC Glucose (mg/dL) 214 H Random Glucose Calcium Total Creatine Kinase Hep Bs Antigen Hep Bs Antibody Hep B Core IgM Ab Hepatitis C Antibody Microbiology 11/08/17 17:00 Blood-Venous Blood Culture - Preliminary NO GROWTH AFTER 3 DAYS 11/10/17 10:14 Blood-Venous Blood Culture - Preliminary NO GROWTH AFTER 24 HOURS 11/08/17 13:00 Blood-Venous S.aureus & Coag-Neg Staph PNA FISH - Final 11/08/17 13:00 Blood-Venous Blood Culture - Preliminary Gram Positive Cocci 11/08/17 13:00 Blood-Venous Gram Stain - Final 11/09/17 11:24 Nose MRSA Culture (Admit) - Final MRSA NOT DETECTED Assessment and Plan (1) AV shunt malfunction Status: Acute (2) CKD (chronic kidney disease) stage 5, GFR less than 15 ml/min Status: Acute (3) Dialysis AV fistula malfunction Status: Acute (4) Bacteremia due to Gram-positive bacteria Status: Acute - Assessment and Plan (Free Text) Assessment: A/P- 52 year old male with ESRD on HD with malfunctioning LUE AVF site and now found to have GPC in blood cx. afebrile normal wbc count blood cx- GPC x 1 of the 2 admission blood cx repeat blood cx- neg from plan- await ID and sensitivity of the GPC in blood cx. in light of vanco allergy (hives) , start pt. on IV daptomycin HD dosage pending sensitivity profile. check CPK while on daptomycin. check EChO r/o any vegetations. AVG malfunction and management as per renal and surgical team. All above d/w patient and he verbalizes full understanding of all above.
[2017-11-11] MEDS: Insulin Detemir 100 Units/ml Inj SC SCH (21:56)
[2017-11-11] MEDS: GABAPENTIN ENACARBIL 600 MG PO SCH (21:57)
--- NOTE | 2017-11-11 23:56 | CP.PCM.PN ---
Subjective - Date & Time of Evaluation Date of Evaluation: 11/11/17 Time of Evaluation: 16:00 - Subjective Subjective: SEEN ON RENAL F/U FEELS BETTER .. NO MORE GENERALIZED BODY ACHES ON DAPTO POST HD FOR PD CATH ON MON PT IS AGREEABLE FOR PD ALL PREVIOUS EMR REVIEWED Objective - Vital Signs/Intake and Output Vital Signs (last 24 hours): Temp Pulse Resp BP Pulse Ox 98.1 F 79 14 134/74 97 11/11/17 19:00 11/11/17 19:00 11/11/17 19:00 11/11/17 19:00 11/11/17 19:00 Intake and Output: 11/11/17 11/12/17 18:59 06:59 Intake Total 240 Balance 240 - Medications Medications: Current Medications Allopurinol (Zyloprim) 100 mg PO DAILY [facility] Last Admin: 11/11/17 08:44 Dose: 100 mg Alprazolam (Xanax) 0.5 mg PO Q8 PRN PRN Reason: Anxiety Last Admin: 11/09/17 12:05 Dose: 0.5 mg Apixaban (Eliquis) 2.5 mg PO Q12 [facility] PRN Reason: Protocol Last Admin: 11/11/17 21:58 Dose: 2.5 mg Atorvastatin Calcium (Lipitor) 40 mg PO [facility] Last Admin: 11/11/17 21:57 Dose: 40 mg Calcium Acetate (Phoslo) 667 mg PO TID [facility] Last Admin: 11/11/17 17:30 Dose: 667 mg Cholecalciferol (Vitamin D) 2,000 intlu PO DAILY [facility] Last Admin: 11/11/17 08:45 Dose: 2,000 intlu Digoxin (Digoxin) 0.125 mg PO MWF [facility] Last Admin: 11/11/17 08:47 Dose: 0.125 mg Diphenoxylate HCl/Atropine (Lomotil 0.025-2.5 Mg Tablet) 2 tab PO Q8 PRN PRN Reason: Diarrhea Last Admin: 11/11/17 08:54 Dose: 2 tab Home Med (Gabapentin Enacarbil [Horizant]) 300 mg PO DAILY [facility] Last Admin: 11/11/17 08:48 Dose: 300 mg Home Med (Gabapentin Enacarbil [Horizant]) 600 mg PO [facility] Last Admin: 11/11/17 21:57 Dose: 600 mg Hydromorphone HCl (Dilaudid) 2 mg IVP Q4 PRN PRN Reason: Pain, severe (8-10) Last Admin: 11/11/17 21:58 Dose: 2 mg Daptomycin 550 mg/ Sodium (Chloride) 100 mls @ 100 mls/hr IV Q48H [facility] PRN Reason: Protocol Stop: 11/15/17 14:01 Last Admin: 11/10/17 23:36 Dose: 100 mls/hr Insulin Detemir (Levemir) 40 units SC HS [facility] Last Admin: 11/11/17 21:56 Dose: 40 units Insulin Human Lispro (Humalog) 0 units SC ACHS [facility] PRN Reason: Protocol Last Admin: 11/11/17 21:58 Dose: Not Given Labetalol HCl (Trandate) 200 mg PO Q8 [facility] Last Admin: 11/11/17 17:30 Dose: Not Given Lactulose (Generlac) 10 gm [place] HS PRN PRN Reason: Constipation Megestrol Acetate (Megace) 600 mg PO DAILY [facility] Last Admin: 11/11/17 08:55 Dose: Not Given Minoxidil (Minoxidil) 2.5 mg PO Q12 [facility] Last Admin: 11/11/17 21:57 Dose: 2.5 mg Gvqgh-1-Jlcq Ethyl Esters (Lovaza) 1 gm PO BID [facility] Last Admin: 11/11/17 17:30 Dose: 1 gm Paroxetine HCl (Paxil) 10 mg PO DAILY [facility] Last Admin: 11/11/17 08:47 Dose: 10 mg Sevelamer HCl (Renagel) 1,600 mg PO TID [facility] Last Admin: 11/11/17 17:30 Dose: 1,600 mg Tamsulosin HCl (Flomax) 0.4 mg PO DAILY [facility] Last Admin: 11/11/17 08:46 Dose: 0.4 mg Ticagrelor (Brilinta) 90 mg PO Q12 [facility] Last Admin: 11/10/17 22:55 Dose: 90 mg Verapamil HCl (Calan Sr Capsule) 120 mg PO DAILY [facility] Last Admin: 11/11/17 08:44 Dose: 120 mg Vitamin B Complex/Vit C/Folic Acid (Nephro-Garcia) 1 tab PO DAILY [facility] Last Admin: 11/11/17 08:46 Dose: 1 tab - Labs Labs: 11/11/17 04:20 11/11/17 04:20 PT 12.2 Seconds (9.8-13.1) 11/10/17 04:40 INR 1.1 (0.9-1.2) 11/10/17 04:40 APTT 34.3 Seconds (25.6-37.1) 11/08/17 17:15 Assessment and Plan - Assessment and Plan (Free Text) Assessment: ESRD ON HD .. MICHAEL IN AM ANEMIA OF CKD .. H/H STABLE ON DAPTO FOR BACTEREMIA MMP P : C/O HD .. NEXT HD IN AM C/O CURRENT MEDS C/O CURRENT MANAGEMENT
--- NOTE | 2017-11-12 04:37 | PN ---
DATE: 11/11/2017 DAILY PROGRESS NOTE SUBJECTIVE: The patient is seen today, 11/11/2017. He is not in any cardiopulmonary distress. PHYSICAL EXAMINATION: VITAL SIGNS: Blood pressure 123/67, temperature 98.4, respiratory rate 18, and pulse 90. HEENT: Pupils are equal and reactive to light. Normal-appearing mucosa of the conjunctivae, oropharyngeal and nasal membrane mucosa. NECK: Supple. No JVD. No carotid bruits. No lymph node. No thyromegaly. CHEST AND LUNGS: Bilateral symmetrical expansion. Good air exchange. No rales. No rhonchi. CARDIOVASCULAR SYSTEM: PMI not localized. S1 and S2. No additional sounds. ABDOMEN: Normoactive bowel sounds. No tenderness. No organomegaly. No masses. EXTREMITIES: No cyanosis. No clubbing. No edema. CENTRAL NERVOUS SYSTEM: Alert, awake, oriented x2. The patient moves all extremities equally. ASSESSMENT: 1. End-stage renal disease, on hemodialysis. 2. Malfunctioning arteriovenous shunt. 3. Paroxysmal atrial fibrillation. 4. Hypertension. 5. Type 2 diabetes mellitus. PLAN: We will continue hemodialysis with femoral catheter. Continue current medications including Accu-Cheks with insulin coverage. We will arrange with Surgery regarding resuming the anticoagulants and the timing of surgery. Mildred Warren MD
[2017-11-12] MEDS: HYDROmorphone 1 mg/ml ISec IVP PRN ×4 (08:45→21:40)
[2017-11-12] MEDS: Insulin Lispro (humaLOG) 100 Units/ml Inj SC SCH ×4 (08:46→22:41)
[2017-11-12] MEDS: Multivitamin Vitamin B Complex (Nephro-Vite) Tab PO SCH (11:16)
[2017-11-12] MEDS: Omega-3-Acid Ethyl Esters 1 GM Cap PO SCH ×3 (11:16→17:41)
[2017-11-12] MEDS: Megestrol Acetate 40 mg/ml Cup PO SCH (11:16)
[2017-11-12] MEDS: GABAPENTIN ENACARBIL 300 MG PO SCH (11:16)
[2017-11-12] MEDS: Cholecalciferol 1,000 INTLU TAB PO SCH ×2 (11:17→14:43)
[2017-11-12] MEDS: Verapamil SR 120 MG CApsule PO SCH (13:08)
[2017-11-12] MEDS: Pantoprazole 40 mg EC Tab PO SCH (14:41)
[2017-11-12] MEDS ORDERED: Alum-Mag Hydrox-Simethicone Susp (30 mL) PO ONE (18:41)
--- NOTE | 2017-11-12 18:43 | CP.PCM.PCO ---
Physician Communication Note - Physician Communication Note Physician Communication Note: Resume Brillinta; Hold Eliquis Tuesday; Plan for OR 11/15
--- NOTE | 2017-11-12 19:42 | CP.PCM.PN ---
Subjective - Date & Time of Evaluation Date of Evaluation: 11/12/17 Time of Evaluation: 19:40 - Subjective Subjective: on hd today vss ellis proc for pd cath placement Tuesday stable for same. Objective - Vital Signs/Intake and Output Vital Signs (last 24 hours): Temp Pulse Resp BP Pulse Ox 100 F H 91 H 20 106/65 97 11/12/17 17:10 11/12/17 17:10 11/12/17 17:10 11/12/17 17:10 11/12/17 17:10 Intake and Output: 11/12/17 11/13/17 18:59 06:59 Intake Total 1100 Balance 1100 - Medications Medications: Current Medications Allopurinol (Zyloprim) 100 mg PO DAILY [facility] Last Admin: 11/12/17 14:44 Dose: 100 mg Apixaban (Eliquis) 2.5 mg PO Q12 [facility] PRN Reason: Protocol Last Admin: 11/12/17 11:16 Dose: Not Given Atorvastatin Calcium (Lipitor) 40 mg PO [facility] Last Admin: 11/11/17 21:57 Dose: 40 mg Calcium Acetate (Phoslo) 667 mg PO TID [facility] Last Admin: 11/12/17 17:39 Dose: 667 mg Cholecalciferol (Vitamin D) 2,000 intlu PO DAILY [facility] Last Admin: 11/12/17 14:43 Dose: 2,000 intlu Digoxin (Digoxin) 0.125 mg PO MWF [facility] Last Admin: 11/11/17 08:47 Dose: 0.125 mg Home Med (Gabapentin Enacarbil [Horizant]) 300 mg PO DAILY [facility] Last Admin: 11/12/17 11:16 Dose: Not Given Home Med (Gabapentin Enacarbil [Horizant]) 600 mg PO [facility] Last Admin: 11/11/17 21:57 Dose: 600 mg Hydromorphone HCl (Dilaudid) 2 mg IVP Q4 PRN PRN Reason: Pain, severe (8-10) Last Admin: 11/12/17 17:33 Dose: 2 mg Daptomycin 550 mg/ Sodium (Chloride) 100 mls @ 100 mls/hr IV Q48H [facility] PRN Reason: Protocol Stop: 11/15/17 14:01 Last Admin: 11/12/17 16:00 Dose: 100 mls/hr Insulin Detemir (Levemir) 40 units SC [facility] Last Admin: 11/11/17 21:56 Dose: 40 units Insulin Human Lispro (Humalog) 0 units SC ACHS [facility] PRN Reason: Protocol Last Admin: 11/12/17 17:41 Dose: 4 u Labetalol HCl (Trandate) 200 mg PO Q8 [facility] Last Admin: 11/12/17 17:40 Dose: Not Given Lactulose (Generlac) 10 gm [place] HS PRN PRN Reason: Constipation Megestrol Acetate (Megace) 600 mg PO DAILY [facility] Last Admin: 11/12/17 11:16 Dose: Not Given Minoxidil (Minoxidil) 2.5 mg PO Q12 [facility] Last Admin: 11/12/17 11:16 Dose: Not Given Noozq-0-Grof Ethyl Esters (Lovaza) 1 gm PO BID [facility] Last Admin: 11/12/17 17:41 Dose: 1 gm Pantoprazole Sodium (Protonix Ec Tab) 40 mg PO DAILY [facility] Last Admin: 11/12/17 14:41 Dose: 40 mg Paroxetine HCl (Paxil) 10 mg PO DAILY [facility] Last Admin: 11/12/17 14:47 Dose: 10 mg Sevelamer HCl (Renagel) 1,600 mg PO TID [facility] Last Admin: 11/12/17 17:40 Dose: 1,600 mg Tamsulosin HCl (Flomax) 0.4 mg PO DAILY [facility] Last Admin: 11/12/17 11:16 Dose: Not Given Ticagrelor (Brilinta) 90 mg PO Q12 [facility] Last Admin: 11/12/17 18:54 Dose: Not Given Verapamil HCl (Calan Sr Capsule) 120 mg PO DAILY [facility] Last Admin: 11/12/17 13:08 Dose: Not Given Vitamin B Complex/Vit C/Folic Acid (Nephro-Garcia) 1 tab PO DAILY [facility] Last Admin: 11/12/17 11:16 Dose: Not Given - Labs Labs: 11/11/17 04:20 11/11/17 04:20 PT 12.2 Seconds (9.8-13.1) 11/10/17 04:40 INR 1.1 (0.9-1.2) 11/10/17 04:40 APTT 34.3 Seconds (25.6-37.1) 11/08/17 17:15 - Head Exam Head Exam: NORMAL INSPECTION - Eye Exam Eye Exam: Normal appearance - ENT Exam ENT Exam: Mucous Membranes Moist - Neck Exam Neck Exam: Normal Inspection - Respiratory Exam Respiratory Exam: NORMAL BREATHING PATTERN - Cardiovascular Exam Cardiovascular Exam: REGULAR RHYTHM - GI/Abdominal Exam GI & Abdominal Exam: Soft - Neurological Exam Neurological Exam: Alert, Awake, Oriented x3 - Psychiatric Exam Psychiatric exam: Normal Affect, Normal Mood - Skin Skin Exam: Dry, Normal Color, Warm Assessment and Plan - Assessment and Plan (Free Text) Assessment: esrd Plan: cont hd
[2017-11-12] MEDS ORDERED: Atropine-Diphenoxylate 0.025-2.5 mg Tab PO ONE (21:56)
[2017-11-12] MEDS: GABAPENTIN ENACARBIL 600 MG PO SCH (22:40)
[2017-11-12] MEDS: Insulin Detemir 100 Units/ml Inj SC SCH (22:43)
[2017-11-13] MEDS: HYDROmorphone 1 mg/ml ISec IVP PRN ×4 (01:49→18:32)
[2017-11-13] MEDS: Insulin Lispro (humaLOG) 100 Units/ml Inj SC SCH ×4 (08:00→21:41)
[2017-11-13] MEDS: Atropine-Diphenoxylate 0.025-2.5 mg Tab PO SCH ×5 (08:51→21:20)
[2017-11-13] MEDS: Verapamil SR 120 MG CApsule PO SCH (09:28)
[2017-11-13] MEDS: GABAPENTIN ENACARBIL 300 MG PO SCH (09:29)
[2017-11-13] MEDS: Omega-3-Acid Ethyl Esters 1 GM Cap PO SCH ×2 (09:30→18:05)
[2017-11-13] MEDS: Megestrol Acetate 40 mg/ml Cup PO SCH (09:31)
[2017-11-13] MEDS: Pantoprazole 40 mg EC Tab PO SCH (09:32)
[2017-11-13] MEDS: Multivitamin Vitamin B Complex (Nephro-Vite) Tab PO SCH (09:32)
[2017-11-13] MEDS: Cholecalciferol 1,000 INTLU TAB PO SCH (09:33)
[2017-11-13] MEDS ORDERED: HYDROmorphone 0.5 mg/0.5 ml ISec IVP PRN (10:15)
--- NOTE | 2017-11-13 14:02 | PN ---
DATE: 11/12/2017 SUBJECTIVE: The patient was seen on 11/12/2017. He was not in any cardiopulmonary distress. The patient was complaining of back pain. PHYSICAL EXAMINATION: VITAL SIGNS: Blood pressure was 106/65, temperature 100, respiratory rate 20, and pulse 90. HEENT: Pupils equal, reactive to light. Normal-appearing mucosa of the conjunctivae, oropharyngeal, and nasal membrane mucosa. NECK: Supple. No JVD. No carotid bruit. No lymph nodes. No thyromegaly. CHEST: Bilateral symmetrical expansion. Good air exchange. No rales. No rhonchi. CARDIOVASCULAR: PMI not localized. S1, S2. No additional sounds. ABDOMEN: Normoactive bowel sounds. No tenderness. No organomegaly. No masses. EXTREMITIES: No cyanosis. No clubbing. No edema. GUEST SERVICES ATTENDANT: Alert, awake, oriented x2, and moves all extremities equally. ASSESSMENT: Malfunctioning arteriovenous shunt, end-stage renal disease on hemodialysis, coronary artery disease, type 2 diabetes mellitus, hypertension, degenerative spine disease. Coagulase-negative staphylococcus bacteremia on isolated bottle. PLAN: Continue hemodialysis from the femoral catheter as ordered. Continue pain management. The patient is scheduled for revising the AV shunt by Vascular Surgery. Mildred Warren MD
[2017-11-13] MEDS ORDERED: HYDROmorphone 0.5 mg/0.5 ml ISec ONE ×2 (18:29)
[2017-11-13] MEDS: GABAPENTIN ENACARBIL 600 MG PO SCH (21:01)
[2017-11-13] MEDS: Insulin Detemir 100 Units/ml Inj SC SCH (21:41)
--- NOTE | 2017-11-14 00:29 | PN ---
DATE: 11/13/2017 SUBJECTIVE: The patient is seen today, 11/13/2017. He is not in any cardiopulmonary distress. OBJECTIVE: VITAL SIGNS: Blood pressure 150/76, temperature 98.4, respiratory rate 18, and pulse 76. HEENT: Pupils equal and reactive to light. Normal-appearing mucosa of the conjunctivae, oropharynx, and nasal membrane mucosa. NECK: Supple. No JVD. No carotid bruit. No lymph node. No thyromegaly. CHEST AND LUNGS: Bilateral symmetrical expansion. Good air exchange. No rales, no rhonchi. CARDIOVASCULAR SYSTEM: PMI not localized. S1, S2. No additional sounds. ABDOMEN: Normoactive bowel sounds. No tenderness. No organomegaly. No masses. EXTREMITIES: No cyanosis, no clubbing, no edema. CHICKEN CLEANER: Alert, awake, and oriented x2. No neurological deficit could be appreciated. ASSESSMENT: 1. Malfunctioning arteriovenous shunt. 2. End-stage renal disease, on hemodialysis. 3. Isolated positive blood culture for coagulase-negative staphylococcus. 4. Type 2 diabetes mellitus. 5. Coronary artery disease, status post percutaneous coronary intervention. PLAN: Continue current medications and follow recommendations of Vascular Surgery, Infectious Disease, and Nephrology. Francisco MD Kelvin
[2017-11-14] MEDS: HYDROmorphone 1 mg/ml ISec IVP PRN ×4 (04:37→22:16)
[2017-11-14] MEDS: Insulin Lispro (humaLOG) 100 Units/ml Inj SC SCH ×4 (06:37→21:40)
--- NOTE | 2017-11-14 08:55 | CP.PCM.PN ---
Subjective - Date & Time of Evaluation Date of Evaluation: 11/14/17 Time of Evaluation: 08:52 - Subjective Subjective: Vascular Surgery Dr. Julien Pt S&E @bedside. EDINSONO. Pt has no complaints. scheduled for HD today via femoral shiley. tolerating diet. Objective - Vital Signs/Intake and Output Vital Signs (last 24 hours): Temp Pulse Resp BP Pulse Ox 98.6 F 87 18 124/66 97 11/14/17 07:56 11/14/17 07:56 11/14/17 07:56 11/14/17 07:56 11/14/17 07:56 - Medications Medications: Current Medications Allopurinol (Zyloprim) 100 mg PO DAILY [facility] Last Admin: 11/13/17 09:33 Dose: 100 mg Apixaban (Eliquis) 2.5 mg PO Q12 [facility] PRN Reason: Protocol Last Admin: 11/12/17 11:16 Dose: Not Given Atorvastatin Calcium (Lipitor) 40 mg PO [facility] Last Admin: 11/13/17 21:02 Dose: 40 mg Calcium Acetate (Phoslo) 667 mg PO TID [facility] Last Admin: 11/13/17 18:05 Dose: 667 mg Cholecalciferol (Vitamin D) 2,000 intlu PO DAILY [facility] Last Admin: 11/13/17 09:33 Dose: 2,000 intlu Digoxin (Digoxin) 0.125 mg PO MWF [facility] Last Admin: 11/11/17 08:47 Dose: 0.125 mg Diphenoxylate HCl/Atropine (Lomotil 0.025-2.5 Mg Tablet) 1 tab PO QID [facility] Last Admin: 11/13/17 21:20 Dose: 1 tab Home Med (Gabapentin Enacarbil [Horizant]) 300 mg PO DAILY [facility] Last Admin: 11/13/17 09:29 Dose: 300 mg Home Med (Gabapentin Enacarbil [Horizant]) 600 mg PO [facility] Last Admin: 11/13/17 21:01 Dose: 600 mg Hydromorphone HCl (Dilaudid) 2 mg IVP Q4 PRN PRN Reason: Pain, severe (8-10) Last Admin: 11/14/17 04:37 Dose: 2 mg Daptomycin 550 mg/ Sodium (Chloride) 100 mls @ 100 mls/hr IV Q48H [facility] PRN Reason: Protocol Stop: 11/15/17 14:01 Last Admin: 11/12/17 16:00 Dose: 100 mls/hr Insulin Detemir (Levemir) 40 units SC HS [facility] Last Admin: 11/13/17 21:41 Dose: 40 units Insulin Human Lispro (Humalog) 0 units SC [facility] PRN Reason: Protocol Last Admin: 11/14/17 06:37 Dose: 4 u Labetalol HCl (Trandate) 200 mg PO Q8 [facility] Last Admin: 11/14/17 01:09 Dose: 200 mg Lactulose (Generlac) 10 gm [place] HS PRN PRN Reason: Constipation Megestrol Acetate (Megace) 600 mg PO DAILY [facility] Last Admin: 11/13/17 09:31 Dose: Not Given Minoxidil (Minoxidil) 2.5 mg PO Q12 [facility] Last Admin: 11/13/17 20:56 Dose: 2.5 mg [id number] Ethyl Esters (Lovaza) 1 gm PO BID [facility] Last Admin: 11/13/17 18:05 Dose: 1 gm Pantoprazole Sodium (Protonix Ec Tab) 40 mg PO DAILY [facility] Last Admin: 11/13/17 09:32 Dose: 40 mg Paroxetine HCl (Paxil) 10 mg PO DAILY [facility] Last Admin: 11/13/17 09:32 Dose: 10 mg Sevelamer HCl (Renagel) 1,600 mg PO TID [facility] Last Admin: 11/13/17 18:07 Dose: 1,600 mg Tamsulosin HCl (Flomax) 0.4 mg PO DAILY [facility] Last Admin: 11/13/17 09:28 Dose: 0.4 mg Ticagrelor (Brilinta) 90 mg PO Q12 [facility] Last Admin: 11/13/17 21:00 Dose: 90 mg Verapamil HCl (Calan Sr Capsule) 120 mg PO DAILY [facility] Last Admin: 11/13/17 09:28 Dose: 120 mg Vitamin B Complex/Vit C/Folic Acid (Nephro-Garcia) 1 tab PO DAILY [facility] Last Admin: 11/13/17 09:32 Dose: 1 tab - Labs Labs: 11/11/17 04:20 11/11/17 04:20 PT 12.2 Seconds (9.8-13.1) 11/10/17 04:40 INR 1.1 (0.9-1.2) 11/10/17 04:40 APTT 34.3 Seconds (25.6-37.1) 11/08/17 17:15 - Constitutional Appears: Non-toxic, No Acute Distress - Head Exam Head Exam: ATRAUMATIC, NORMOCEPHALIC - Eye Exam Eye Exam: EOMI Pupil Exam: PERRL - ENT Exam ENT Exam: Mucous Membranes Moist - Respiratory Exam Respiratory Exam: NORMAL BREATHING PATTERN. absent: Respiratory Distress - Cardiovascular Exam Cardiovascular Exam: REGULAR RHYTHM. absent: Bradycardia, Tachycardia - GI/Abdominal Exam GI & Abdominal Exam: Soft. absent: Distended, Firm, Guarding, Rigid, Tenderness , Rebound Additional comments: multiple scars present. - Extremities Exam Additional comments: femoral shiley in place - Neurological Exam Neurological Exam: Alert, Awake, Oriented x3 - Psychiatric Exam Psychiatric exam: Normal Affect, Normal Mood - Skin Skin Exam: Dry, Intact, Normal Color, Warm Assessment and Plan - Assessment and Plan (Free Text) Assessment: 52 y/o M w/ multiple failed AVF 2/2 hyper-coaguablity, receiving HD via [facility], planned for PD catheter placement this admission. Plan: 1. cont dialysis per Nephro 2. cont Brallinta 3. hold Eliquis until post procedure 4. cont home meds 5. repeat Bx NGTD 6. cont IV Abx per ID Further recs per Dr. Anaya Balderas DO PGY3
--- NOTE | 2017-11-14 11:04 | CP.PCM.PN ---
Subjective - Date & Time of Evaluation Date of Evaluation: 11/14/17 Time of Evaluation: 11:04 - Subjective Subjective: ID Note- Pt. seen and examined today. getting his HD through his femoral line shiley cath. no new events . denies any fever or chills. Objective - Vital Signs/Intake and Output Vital Signs (last 24 hours): Temp Pulse Resp BP Pulse Ox 98.6 F 87 18 124/66 97 11/14/17 07:56 11/14/17 07:56 11/14/17 07:56 11/14/17 07:56 11/14/17 07:56 - Medications Medications: Current Medications Allopurinol (Zyloprim) 100 mg PO DAILY [facility] Last Admin: 11/13/17 09:33 Dose: 100 mg Apixaban (Eliquis) 2.5 mg PO Q12 [facility] PRN Reason: Protocol Last Admin: 11/12/17 11:16 Dose: Not Given Atorvastatin Calcium (Lipitor) 40 mg PO [facility] Last Admin: 11/13/17 21:02 Dose: 40 mg Calcium Acetate (Phoslo) 667 mg PO TID [facility] Last Admin: 11/13/17 18:05 Dose: 667 mg Cholecalciferol (Vitamin D) 2,000 intlu PO DAILY [facility] Last Admin: 11/13/17 09:33 Dose: 2,000 intlu Digoxin (Digoxin) 0.125 mg PO MWF [facility] Last Admin: 11/11/17 08:47 Dose: 0.125 mg Diphenoxylate HCl/Atropine (Lomotil 0.025-2.5 Mg Tablet) 1 tab PO QID [facility] Last Admin: 11/13/17 21:20 Dose: 1 tab Home Med (Gabapentin Enacarbil [Horizant]) 300 mg PO DAILY [facility] Last Admin: 11/13/17 09:29 Dose: 300 mg Home Med (Gabapentin Enacarbil [Horizant]) 600 mg PO [facility] Last Admin: 11/13/17 21:01 Dose: 600 mg Hydromorphone HCl (Dilaudid) 2 mg IVP Q4 PRN PRN Reason: Pain, severe (8-10) Last Admin: 11/14/17 04:37 Dose: 2 mg Daptomycin 550 mg/ Sodium (Chloride) 100 mls @ 100 mls/hr IV Q48H [facility] PRN Reason: Protocol Stop: 11/15/17 14:01 Last Admin: 11/12/17 16:00 Dose: 100 mls/hr Insulin Detemir (Levemir) 40 units SC HS [facility] Last Admin: 11/13/17 21:41 Dose: 40 units Insulin Human Lispro (Humalog) 0 units SC ACHS [facility] PRN Reason: Protocol Last Admin: 11/14/17 06:37 Dose: 4 u Labetalol HCl (Trandate) 200 mg PO Q8 [facility] Last Admin: 11/14/17 01:09 Dose: 200 mg Lactulose (Generlac) 10 gm [place] HS PRN PRN Reason: Constipation Megestrol Acetate (Megace) 600 mg PO DAILY [facility] Last Admin: 11/13/17 09:31 Dose: Not Given Minoxidil (Minoxidil) 2.5 mg PO Q12 [facility] Last Admin: 11/13/17 20:56 Dose: 2.5 mg Orbdn-5-Fuay Ethyl Esters (Lovaza) 1 gm PO BID [facility] Last Admin: 11/13/17 18:05 Dose: 1 gm Pantoprazole Sodium (Protonix Ec Tab) 40 mg PO DAILY [facility] Last Admin: 11/13/17 09:32 Dose: 40 mg Paroxetine HCl (Paxil) 10 mg PO DAILY [facility] Last Admin: 11/13/17 09:32 Dose: 10 mg Sevelamer HCl (Renagel) 1,600 mg PO TID [facility] Last Admin: 11/13/17 18:07 Dose: 1,600 mg Tamsulosin HCl (Flomax) 0.4 mg PO DAILY [facility] Last Admin: 11/13/17 09:28 Dose: 0.4 mg Ticagrelor (Brilinta) 90 mg PO Q12 [facility] Last Admin: 11/13/17 21:00 Dose: 90 mg Verapamil HCl (Calan Sr Capsule) 120 mg PO DAILY [facility] Last Admin: 11/13/17 09:28 Dose: 120 mg Vitamin B Complex/Vit C/Folic Acid (Nephro-Garcia) 1 tab PO DAILY [facility] Last Admin: 11/13/17 09:32 Dose: 1 tab - Labs Labs: - Additional Findings Additional findings: Constitutional Appears: No Acute Distress - Head Exam Head Exam: ATRAUMATIC - Eye Exam Eye Exam: EOMI - ENT Exam ENT Exam: Normal Oropharynx - Neck Exam Neck exam: Positive for: Full Rom - Respiratory Exam Respiratory Exam: Clear to Auscultation Bilateral, NORMAL BREATHING PATTERN - Cardiovascular Exam Cardiovascular Exam: RRR, +S1, +S2 - GI/Abdominal Exam GI & Abdominal Exam: Normal Bowel Sounds, Soft Additional comments: NT, ND - Exam Additional comments: small 2 x 2 cm oval sacral decub stage 1-2 , no opening, no discharge - Extremities Exam Additional comments: right foot s/p TMA clean/dry/intact left foot no ulcers has slight echymosis on the toes ( states soap fell on his toes) LUE AVG has sutures in place, no discharge, no erythema no tenderness - Neurological Exam Neurological exam: Alert, Oriented x3 - Additional Findings Additional findings: lines- temp HD catheter in right femoral region ( was placed yesterday as per pt) Laboratory Results - last 72 hr 11/11/17 11/11/17 11/12/17 16:53 21:27 05:35 POC Glucose (mg/dL) 214 H 231 H 357 H 11/12/17 11/12/17 11/12/17 11:59 16:51 21:20 POC Glucose (mg/dL) 197 H 257 H 206 H 11/13/17 11/13/17 11/13/17 05:21 11:23 16:26 POC Glucose (mg/dL) 194 H 133 H 228 H 11/13/17 11/14/17 11/14/17 21:34 05:13 11:06 POC Glucose (mg/dL) 207 H 277 H 88 Microbiology 11/10/17 10:14 Blood-Venous Blood Culture - Preliminary NO GROWTH AFTER 4 DAYS 11/11/17 10:07 Blood-Venous Blood Culture - Preliminary NO GROWTH AFTER 3 DAYS 11/11/17 10:07 Blood-Venous Blood Culture - Preliminary NO GROWTH AFTER 3 DAYS 11/08/17 17:00 Blood-Venous Blood Culture - Final NO GROWTH AFTER 5 DAYS 11/08/17 17:00 Blood-Venous Gram Stain - Final TEST NOT PERFORMED 11/11/17 09:57 Naris MRSA Culture (Admit) - Final MRSA NOT DETECTED 11/08/17 13:00 Blood-Venous S.aureus & Coag-Neg Staph PNA FISH - Final 11/08/17 13:00 Blood-Venous Blood Culture - Final Coagulase Neg Staphylococcus 11/08/17 13:00 Blood-Venous Gram Stain - Final 11/09/17 11:24 Nose MRSA Culture (Admit) - Final MRSA NOT DETECTED Assessment and Plan (1) AV shunt malfunction Status: Acute (2) CKD (chronic kidney disease) stage 5, GFR less than 15 ml/min Status: Acute (3) Dialysis AV fistula malfunction Status: Acute (4) Bacteremia due to Gram-positive bacteria Status: Acute - Assessment and Plan (Free Text) Assessment: A/P- 52 year old male with ESRD on HD with malfunctioning LUE AVF site and now found to have GPC in blood cx. afebrile normal wbc count blood cx- coag neg staph, 1 of the 2 admission blood cx repeat blood cx- neg x 3 plan- acontinue with IV daptomycin post hd days for coag neg staph bactermia. could have been a contaminant / check CPK while on daptomycin. check EChO r/o any vegetations. AVG malfunction and management as per renal and surgical team. awaits PD placement this admission. All above d/w patient and he verbalizes full understanding of all above.
[2017-11-14] MEDS: Atropine-Diphenoxylate 0.025-2.5 mg Tab PO SCH ×4 (13:24→22:14)
[2017-11-14] MEDS: Verapamil SR 120 MG CApsule PO SCH (13:41)
[2017-11-14] MEDS: Multivitamin Vitamin B Complex (Nephro-Vite) Tab PO SCH (13:44)
[2017-11-14] MEDS: Omega-3-Acid Ethyl Esters 1 GM Cap PO SCH ×2 (13:44→17:21)
[2017-11-14] MEDS: GABAPENTIN ENACARBIL 300 MG PO SCH (13:45)
[2017-11-14] MEDS: Cholecalciferol 1,000 INTLU TAB PO SCH (13:46)
[2017-11-14] MEDS: Pantoprazole 40 mg EC Tab PO SCH (13:46)
[2017-11-14] MEDS: Digoxin 125 mcg (0.125 mg) Tab PO SCH (13:50)
[2017-11-14] MEDS: Megestrol Acetate 40 mg/ml Cup PO SCH (14:23)
[2017-11-14] MEDS: GABAPENTIN ENACARBIL 600 MG PO SCH (22:14)
[2017-11-14] MEDS: Insulin Detemir 100 Units/ml Inj SC SCH (22:14)
--- NOTE | 2017-11-14 23:38 | CP.PCM.PN ---
Subjective - Date & Time of Evaluation Date of Evaluation: 11/14/17 Time of Evaluation: 15:00 - Subjective Subjective: SEEN ON RENAL F/U RECIEVEDHIS HD TODAY .. TOLERATED WELL ' FEELS IMPROVED AWAITING DECISION : PD CATH VS R FEMORAL TUNNELLED CATH PT HAD MULTIPLE ABDO SURGERIES IN THE PAST ALSO PT DOES NOT PREFER R FEMORAL CATH Objective - Vital Signs/Intake and Output Vital Signs (last 24 hours): Temp Pulse Resp BP Pulse Ox 98.3 F 85 16 123/75 96 11/14/17 20:13 11/14/17 20:13 11/14/17 20:13 11/14/17 20:13 11/14/17 20:13 - Medications Medications: Current Medications Allopurinol (Zyloprim) 100 mg PO DAILY [facility] Last Admin: 11/14/17 13:46 Dose: 100 mg Apixaban (Eliquis) 2.5 mg PO Q12 [facility] PRN Reason: Protocol Last Admin: 11/12/17 11:16 Dose: Not Given Atorvastatin Calcium (Lipitor) 40 mg PO [facility] Last Admin: 11/14/17 22:14 Dose: 40 mg Calcium Acetate (Phoslo) 667 mg PO TID [facility] Last Admin: 11/14/17 17:21 Dose: 667 mg Cholecalciferol (Vitamin D) 2,000 intlu PO DAILY [facility] Last Admin: 11/14/17 13:46 Dose: 2,000 intlu Digoxin (Digoxin) 0.125 mg PO MWF [facility] Last Admin: 11/14/17 13:50 Dose: 0.125 mg Diphenoxylate HCl/Atropine (Lomotil 0.025-2.5 Mg Tablet) 1 tab PO QID [facility] Last Admin: 11/14/17 22:14 Dose: 1 tab Home Med (Gabapentin Enacarbil [Horizant]) 300 mg PO DAILY [facility] Last Admin: 11/14/17 13:45 Dose: 300 mg Home Med (Gabapentin Enacarbil [Horizant]) 600 mg PO [facility] Last Admin: 11/14/17 22:14 Dose: 600 mg Hydromorphone HCl (Dilaudid) 2 mg IVP Q4 PRN PRN Reason: Pain, severe (8-10) Last Admin: 11/14/17 22:16 Dose: 2 mg Ceftaroline Fosamil 200 mg/ (Sodium Chloride) 100 mls @ 100 mls/hr IVPB Q12 [facility] PRN Reason: Protocol Last Admin: 11/14/17 22:15 Dose: 100 mls/hr Insulin Detemir (Levemir) 40 units SC HS [facility] Last Admin: 11/14/17 22:14 Dose: 40 units Insulin Human Lispro (Humalog) 0 units SC ACHS [facility] PRN Reason: Protocol Last Admin: 11/14/17 21:40 Dose: Not Given Labetalol HCl (Trandate) 200 mg PO Q8 [facility] Last Admin: 11/14/17 17:21 Dose: 200 mg Lactulose (Generlac) 10 gm [place] HS PRN PRN Reason: Constipation Megestrol Acetate (Megace) 600 mg PO DAILY [facility] Last Admin: 11/14/17 14:23 Dose: Not Given Minoxidil (Minoxidil) 2.5 mg PO Q12 [facility] Last Admin: 11/14/17 22:14 Dose: 2.5 mg [id number] Ethyl Esters (Lovaza) 1 gm PO BID [facility] Last Admin: 11/14/17 17:21 Dose: 1 gm Pantoprazole Sodium (Protonix Ec Tab) 40 mg PO DAILY [facility] Last Admin: 11/14/17 13:46 Dose: 40 mg Paroxetine HCl (Paxil) 10 mg PO DAILY [facility] Last Admin: 11/14/17 13:46 Dose: 10 mg Sevelamer HCl (Renagel) 1,600 mg PO TID [facility] Last Admin: 11/14/17 17:21 Dose: 1,600 mg Tamsulosin HCl (Flomax) 0.4 mg PO DAILY [facility] Last Admin: 11/14/17 13:45 Dose: 0.4 mg Ticagrelor (Brilinta) 90 mg PO Q12 [facility] Last Admin: 11/14/17 22:15 Dose: 90 mg Verapamil HCl (Calan Sr Capsule) 120 mg PO DAILY [facility] Last Admin: 11/14/17 13:41 Dose: 120 mg Vitamin B Complex/Vit C/Folic Acid (Nephro-Garcia) 1 tab PO DAILY [facility] Last Admin: 11/14/17 13:44 Dose: 1 tab - Labs Labs: 11/11/17 04:20 11/11/17 04:20 PT 12.2 Seconds (9.8-13.1) 11/10/17 04:40 INR 1.1 (0.9-1.2) 11/10/17 04:40 APTT 34.3 Seconds (25.6-37.1) 11/08/17 17:15 Assessment and Plan - Assessment and Plan (Free Text) Assessment: ESRD ON HD M W F ANEMIA OF CKD .. H/H GOOD THROMBOSED L ARM O ELISA LACK OF VASCULAR ACCESS FOR HD MMP P : C/O CURRENT CARE C/O PRESENT MEDS WILL D/W DR MCCLENDON
[2017-11-15] MEDS: HYDROmorphone 1 mg/ml ISec IVP PRN ×2 (01:29→08:10)
--- NOTE | 2017-11-15 03:33 | PN ---
DATE: 11/14/2017 SUBJECTIVE: The patient is seen today, 11/14/2017. He is not in any cardiopulmonary distress. The patient was seen during hemodialysis. PHYSICAL EXAMINATION: VITAL SIGNS: Blood pressure was 110/65, temperature 99.4, respiratory rate 18, and pulse 82. HEENT: Pupils equal and reactive to light. Normal appearing mucosa of the conjunctiva, oropharyngeal, and nasal membrane mucosa. NECK: Supple. No JVD. No carotid bruit. No lymph nodes. No thyromegaly. CHEST AND LUNGS: Bilateral symmetrical expansion. Good air exchange. No rales. No rhonchi. CARDIOVASCULAR SYSTEM: PMI not localized. S1 and S2. No additional sounds. ABDOMEN: Normoactive bowel sounds. No tenderness. No organomegaly. No masses. EXTREMITIES: No cyanosis. No clubbing. No edema. TEAM MEMBER: Alert, awake, oriented x2. No neurological deficit could be appreciated. ASSESSMENT: 1. Malfunctioning arteriovenous shunt. 2. Endstage renal disease, on hemodialysis. 3. Hypertension. 4. Type 2 diabetes mellitus. PLAN: Continue hemodialysis, and the patient is for surgical repair of the malfunctioning AV shunt. Continue current management. Mildred Warren MD
[2017-11-15] MEDS: Insulin Lispro (humaLOG) 100 Units/ml Inj SC SCH ×4 (06:40→22:05)
[2017-11-15] MEDS ORDERED: HYDROmorphone 1 mg/ml ISec IVP ONE (08:10)
[2017-11-15] MEDS: Verapamil SR 120 MG CApsule PO SCH (08:23)
[2017-11-15] MEDS: Atropine-Diphenoxylate 0.025-2.5 mg Tab PO SCH ×4 (08:24→22:08)
[2017-11-15] MEDS: GABAPENTIN ENACARBIL 300 MG PO SCH ×2 (08:24→13:28)
[2017-11-15] MEDS: Megestrol Acetate 40 mg/ml Cup PO SCH (08:25)
[2017-11-15] MEDS: Omega-3-Acid Ethyl Esters 1 GM Cap PO SCH ×2 (08:25→18:11)
[2017-11-15] MEDS: Pantoprazole 40 mg EC Tab PO SCH (08:25)
[2017-11-15] MEDS: Multivitamin Vitamin B Complex (Nephro-Vite) Tab PO SCH (08:25)
[2017-11-15] MEDS: Cholecalciferol 1,000 INTLU TAB PO SCH (08:26)
[2017-11-15 08:30] LABS: BASO # 0.1 K/uL (0.0-0.2); BASO % 0.9 % (0.0-2.0); EOS # 0.2 K/uL (0.0-0.7); EOS % 3.5 % (0.0-4.0); HEMOGLOBIN 11.3 g/dL (12.0-18.0); LYMPH % 16.4 % (20.0-40.0); MEAN CORPUSCULAR HEMOGLOBIN 26.4 pg (27.0-31.0); MEAN CORPUSCULAR HGB CONC 32.6 g/dL (33.0-37.0); MEAN PLATELET VOLUME 7.3 fl (7.2-11.7); MONO # 0.8 K/uL (0.0-0.8); MONO % 12.8 % (0.0-10.0); NEUT # 4.2 K/uL (1.8-7.0); NEUT % 66.4 % (50.0-75.0); NRBC % 0.1 % (0.0-0.0); RBC 4.26 Mil/uL (4.40-5.90); RED CELL DISTRIBUTION WIDTH 16.3 % (11.5-14.5); WHITE BLOOD COUNT 6.3 K/uL (4.8-10.8)
[2017-11-15 08:36] LABS: ALB/GLOB RATIO 1.2 (1.0-2.1); ALBUMIN 4.1 g/dL (3.5-5.0); CALCIUM 8.3 mg/dL (8.4-10.2)
[2017-11-15] MEDS ORDERED: Succinylcholine 200 mg/10 ml Inj IV ONE (08:38)
[2017-11-15] MEDS ORDERED: Propofol 10 mg/ml Inj (20 ML) ONE (08:38)
[2017-11-15] MEDS ORDERED: Lidocaine 4% (Laryng-O-Jet) Kit MM ONE (08:38)
[2017-11-15] MEDS ORDERED: Etomidate 20 mg/10ml Inj IV ONE (08:38)
--- NOTE | 2017-11-15 08:56 | CARD ---
APPROVED REPORT EXAM: Two-dimensional and M-mode echocardiogram with Doppler and color Doppler. Other Information Quality : GoodRhythm : NSR INDICATION Infection:Subacute bacterial endocarditis 2D DIMENSIONS IVSd1.31 (0.7-1.1cm)LVDd4.20 (3.9-5.9cm) LVOT Diameter2.38 (1.8-2.4cm)PWd1.32 (0.7-1.1cm) IVSs1.89 (0.8-1.2cm)LVDs2.43 (2.5-4.0cm) FS (%) 42.3 %PWs1.76 (0.8-1.2cm) M-Mode DIMENSIONS Left Atrium (MM)5.13 (2.5-4.0cm)IVSd1.03 (0.7-1.1cm) Aortic Root3.06 (2.2-3.7cm)LVDd5.25 (4.0-5.6cm) Aortic Cusp Exc.2.00 (1.5-2.0cm)PWd1.38 (0.7-1.1cm) IVSs2.09 cmFS (%) 45 % LVDs2.91 (2.0-3.8cm)PWs2.06 cm Mitral Valve MV E Laqypnin46.5cm/sMV DECEL [id number] A Ntugsdho18.5cm/s MV TSO68elU/A ratio2.1MVA (PHT)3.66cm2 TDI Lateral E' Peak V11.08cm/sMedial E' Peak V8.88cm/sE/Lateral E'7.9 E/Medial E'9.9 Pulmonary Valve PV Peak Rzgocntc018.6cm/s Tricuspid Valve TR Peak Wywgipap514lk/sRAP [id number] Peak Gr.16mmHg [id number] LEFT VENTRICLE The left ventricle is normal size. There is normal left ventricular wall thickness. The left ventricular function is normal. The left ventricular ejection fraction is within the normal range. The Ejection Fraction is 60-65%. There is normal LV segmental wall motion. The left ventricular diastolic function is normal. No left ventricle thrombus noted on this study. There is no ventricular septal defect visualized. There is no left ventricular aneurysm. There is no mass noted in the left ventricle. RIGHT VENTRICLE The right ventricle is normal size. There is normal right ventricular wall thickness. The right ventricular systolic function is normal. ATRIA The left atrium size is normal. The right atrium size is normal. Eustachian valve is noted in the right atrium. The interatrial septum is intact with no evidence for an atrial septal defect. AORTIC VALVE The aortic valve is normal in structure. No aortic regurgitation is present. There is no aortic valvular stenosis. There is no aortic valvular vegetation. MITRAL VALVE The mitral valve is normal in structure. There is no evidence of mitral valve prolapse. There is no mitral valve stenosis. Mitral regurgitation is trace to mild. TRICUSPID VALVE The tricuspid valve is normal in structure. There is trace tricuspid regurgitation. There is no tricuspid valve prolapse or vegetation. There is no tricuspid valve stenosis. PULMONIC VALVE The pulmonary valve is normal in structure. There is no pulmonic valvular regurgitation. There is no pulmonic valvular stenosis. GREAT VESSELS The aortic root is normal in size. The ascending aorta is normal in size. The pulmonary artery is normal. The IVC is normal in size and collapses >50% with inspiration. PERICARDIAL EFFUSION The pericardium appears normal. <Conclusion> The left ventricular function is normal. The left ventricular ejection fraction is within the normal range. The Ejection Fraction is 60-65%. The right atrium size is normal. Eustachian valve is noted in the right atrium. Mitral regurgitation is trace to mild. No vegetations identified on any of the valves. If clinically indicated consider JAY for further evaluation
[2017-11-15] MEDS ORDERED: Sodium Chloride 0.9% 100 ML IV ONE (09:20)
[2017-11-15] MEDS ORDERED: Midazolam 2 MG/2 ML VIAL ONE (09:24)
[2017-11-15] MEDS ORDERED: Rocuronium 10 mg/ml (5 ml) ONE (09:32)
[2017-11-15] MEDS ORDERED: Neostigmine 1:1000 (1 mg/ml) Inj ONE (09:53)
[2017-11-15] MEDS ORDERED: HYDROmorphone 0.5 mg/0.5 ml ISec IVP PRN (10:26)
--- NOTE | 2017-11-15 10:28 | PCM.SURG1 ---
Surgeon's Initial Post Op Note - Surgeon's Notes Surgeon: Dr. Julien Animation Artist: Lucia paz PGY2 Type of Anesthesia: General Endo Anesthesia Administered By: Yung Pre-Operative Diagnosis: End state renal disease Operative Findings: adhesions. catheter patent. Good inflow and outflow Post-Operative Diagnosis: Same Operation Performed: Open peritoneal dialysis catheter insertion Specimen/Specimens Removed: Non e Estimated Blood Loss: EBL {In ML}: 10 Blood Products Given: N/A Post-Op Condition: Good Date of Surgery/Procedure: 11/15/17 Time of Surgery/Procedure: 10:28
--- NOTE | 2017-11-15 16:24 | CP.PCM.PN ---
Subjective - Date & Time of Evaluation Date of Evaluation: 11/15/17 Time of Evaluation: 13:00 - Subjective Subjective: ID Note- Pt. seen and examined today. pt. is s/p Peritoneal dialysis catheter insertion today. still has the right femoral HD cath in place as well. remains afebrile. Objective - Vital Signs/Intake and Output Vital Signs (last 24 hours): Temp Pulse Resp BP Pulse Ox 98.5 F 81 20 123/68 100 11/15/17 12:00 11/15/17 12:00 11/15/17 12:00 11/15/17 12:00 11/15/17 12:00 Intake and Output: 11/15/17 11/15/17 06:59 18:59 Intake Total 50 Balance 50 - Medications Medications: Current Medications Allopurinol (Zyloprim) 100 mg PO DAILY [facility] Last Admin: 11/15/17 08:26 Dose: Not Given Apixaban (Eliquis) 2.5 mg PO Q12 [facility] PRN Reason: Protocol Last Admin: 11/12/17 11:16 Dose: Not Given Atorvastatin Calcium (Lipitor) 40 mg PO [facility] Last Admin: 11/14/17 22:14 Dose: 40 mg Calcium Acetate (Phoslo) 667 mg PO TID [facility] Last Admin: 11/15/17 13:14 Dose: Not Given Cholecalciferol (Vitamin D) 2,000 intlu PO DAILY [facility] Last Admin: 11/15/17 08:26 Dose: Not Given Digoxin (Digoxin) 0.125 mg PO MWF [facility] Last Admin: 11/14/17 13:50 Dose: 0.125 mg Diphenoxylate HCl/Atropine (Lomotil 0.025-2.5 Mg Tablet) 1 tab PO QID [facility] Last Admin: 11/15/17 13:14 Dose: Not Given Home Med (Gabapentin Enacarbil [Horizant]) 300 mg PO DAILY [facility] Last Admin: 11/15/17 13:28 Dose: Not Given Home Med (Gabapentin Enacarbil [Horizant]) 600 mg PO [facility] Last Admin: 11/14/17 22:14 Dose: 600 mg Hydromorphone HCl (Dilaudid) 2 mg IVP Q4 PRN PRN Reason: Pain, severe (8-10) Last Admin: 11/15/17 08:10 Dose: 2 mg Ceftaroline Fosamil 200 mg/ (Sodium Chloride) 100 mls @ 100 mls/hr IVPB Q12 [facility] PRN Reason: Protocol Last Admin: 11/15/17 08:58 Dose: 100 mls/hr Insulin Detemir (Levemir) 40 units SC HS [facility] Last Admin: 11/14/17 22:14 Dose: 40 units Insulin Human Lispro (Humalog) 0 units SC ACHS [facility] PRN Reason: Protocol Last Admin: 11/15/17 13:13 Dose: Not Given Labetalol HCl (Trandate) 200 mg PO Q8 [facility] Last Admin: 11/15/17 08:26 Dose: Not Given Lactulose (Generlac) 10 gm DC HS PRN PRN Reason: Constipation Megestrol Acetate (Megace) 600 mg PO DAILY [facility] Last Admin: 11/15/17 08:25 Dose: Not Given Minoxidil (Minoxidil) 2.5 mg PO Q12 [facility] Last Admin: 11/15/17 08:25 Dose: Not Given Frnuz-4-Fhme Ethyl Esters (Lovaza) 1 gm PO BID [facility] Last Admin: 11/15/17 08:25 Dose: Not Given Oxycodone/Acetaminophen (Percocet 5/325 Mg Tab) 2 tab PO Q4 PRN PRN Reason: Pain, moderate (4-7) Stop: 11/18/17 10:24 Pantoprazole Sodium (Protonix Ec Tab) 40 mg PO DAILY [facility] Last Admin: 11/15/17 08:25 Dose: Not Given Paroxetine HCl (Paxil) 10 mg PO DAILY [facility] Last Admin: 11/15/17 08:25 Dose: Not Given Sevelamer HCl (Renagel) 1,600 mg PO TID [facility] Last Admin: 11/15/17 13:14 Dose: Not Given Tamsulosin HCl (Flomax) 0.4 mg PO DAILY [facility] Last Admin: 11/15/17 08:52 Dose: Not Given Ticagrelor (Brilinta) 90 mg PO Q12 [facility] Last Admin: 11/15/17 08:23 Dose: Not Given Verapamil HCl (Calan Sr Capsule) 120 mg PO DAILY [facility] Last Admin: 11/15/17 08:23 Dose: Not Given Vitamin B Complex/Vit C/Folic Acid (Nephro-Garcia) 1 tab PO DAILY [facility] Last Admin: 11/15/17 08:25 Dose: Not Given - Labs Labs: - Additional Findings Additional findings: Constitutional Appears: No Acute Distress - Head Exam Head Exam: ATRAUMATIC - Eye Exam Eye Exam: EOMI - ENT Exam ENT Exam: Normal Oropharynx - Neck Exam Neck exam: Positive for: Full Rom - Respiratory Exam Respiratory Exam: Clear to Auscultation Bilateral, NORMAL BREATHING PATTERN - Cardiovascular Exam Cardiovascular Exam: RRR, +S1, +S2 - GI/Abdominal Exam GI & Abdominal Exam: Normal Bowel Sounds, Soft Additional comments: NT, ND new PD dialysis catheter in place in right lower abd region - Exam Additional comments: small 2 x 2 cm oval sacral decub stage 1-2 , no opening, no discharge - Extremities Exam Additional comments: right foot s/p TMA clean/dry/intact LUE AVG has sutures in place, no discharge, no erythema no tenderness - Neurological Exam Neurological exam: Alert, Oriented x3 - Additional Findings Additional findings: lines- temp HD catheter in right femoral region ( was placed yesterday as per pt) Laboratory Results - last 72 hr 11/12/17 11/12/17 11/13/17 16:51 21:20 05:21 WBC RBC Hgb Hct MCV MCH MCHC RDW Plt Count MPV Neut % (Auto) Lymph % (Auto) [place] % (Auto) Eos % (Auto) Baso % (Auto) Neut # (Auto) Lymph # (Auto) [place] # (Auto) Eos # (Auto) Baso # (Auto) Sodium Potassium Chloride Carbon Dioxide Anion Gap BUN Creatinine Est GFR ( Amer) Est GFR (Non-Af Amer) POC Glucose (mg/dL) 257 H 206 H 194 H Random Glucose Calcium Total Bilirubin AST ALT Alkaline Phosphatase Total Protein Albumin Globulin Albumin/Globulin Ratio 11/13/17 11/13/17 11/13/17 11:23 16:26 21:34 WBC RBC Hgb Hct MCV MCH MCHC RDW Plt Count MPV Neut % (Auto) Lymph % (Auto) [place] % (Auto) Eos % (Auto) Baso % (Auto) Neut # (Auto) Lymph # (Auto) [place] # (Auto) Eos # (Auto) Baso # (Auto) Sodium Potassium Chloride Carbon Dioxide Anion Gap BUN Creatinine Est GFR ( Amer) Est GFR (Non-Af Amer) POC Glucose (mg/dL) 133 H 228 H 207 H Random Glucose Calcium Total Bilirubin AST ALT Alkaline Phosphatase Total Protein Albumin Globulin Albumin/Globulin Ratio 11/14/17 11/14/17 11/14/17 05:13 11:06 16:49 WBC RBC Hgb Hct MCV MCH MCHC RDW Plt Count MPV Neut % (Auto) Lymph % (Auto) [place] % (Auto) Eos % (Auto) Baso % (Auto) Neut # (Auto) Lymph # (Auto) [place] # (Auto) Eos # (Auto) Baso # (Auto) Sodium Potassium Chloride Carbon Dioxide Anion Gap BUN Creatinine Est GFR ( Amer) Est GFR (Non-Af Amer) POC Glucose (mg/dL) 277 H 88 125 H Random Glucose Calcium Total Bilirubin AST ALT Alkaline Phosphatase Total Protein Albumin Globulin Albumin/Globulin Ratio 11/14/17 11/15/17 11/15/17 21:24 05:05 08:19 WBC 6.3 RBC 4.26 L Hgb 11.3 L Hct 34.5 L MCV 81.0 MCH 26.4 L MCHC 32.6 L RDW 16.3 H Plt Count 222 MPV 7.3 Neut % (Auto) 66.4 Lymph % (Auto) 16.[address] % (Auto) 12.8 H Eos % (Auto) 3.5 Baso % (Auto) 0.9 Neut # (Auto) 4.2 Lymph # (Auto) 1.0 [place] # (Auto) 0.8 Eos # (Auto) 0.2 Baso # (Auto) 0.1 Sodium Potassium Chloride Carbon Dioxide Anion Gap BUN Creatinine Est GFR ( Amer) Est GFR (Non-Af Amer) POC Glucose (mg/dL) 191 H 183 H Random Glucose Calcium Total Bilirubin AST ALT Alkaline Phosphatase Total Protein Albumin Globulin Albumin/Globulin Ratio 11/15/17 11/15/17 11/15/17 08:19 10:21 11:52 WBC RBC Hgb Hct MCV MCH MCHC RDW Plt Count MPV Neut % (Auto) Lymph % (Auto) [place] % (Auto) Eos % (Auto) Baso % (Auto) Neut # (Auto) Lymph # (Auto) [place] # (Auto) Eos # (Auto) Baso # (Auto) Sodium 137 Potassium 4.6 Chloride 97 L Carbon Dioxide 27 Anion Gap 18 BUN 37 H Creatinine 9.7 H* Est GFR ( Amer) 7 Est GFR (Non-Af Amer) 6 POC Glucose (mg/dL) 190 H 167 H Random Glucose 214 H Calcium 8.3 L Total Bilirubin 0.7 AST 28 ALT 38 Alkaline Phosphatase 155 H D Total Protein 7.6 Albumin 4.1 Globulin 3.5 Albumin/Globulin Ratio 1.2 11/15/17 15:54 WBC RBC Hgb Hct MCV MCH MCHC RDW Plt Count MPV Neut % (Auto) Lymph % (Auto) [place] % (Auto) Eos % (Auto) Baso % (Auto) Neut # (Auto) Lymph # (Auto) [place] # (Auto) Eos # (Auto) Baso # (Auto) Sodium Potassium Chloride Carbon Dioxide Anion Gap BUN Creatinine Est GFR ( Amer) Est GFR (Non-Af Amer) POC Glucose (mg/dL) 117 H Random Glucose Calcium Total Bilirubin AST ALT Alkaline Phosphatase Total Protein Albumin Globulin Albumin/Globulin Ratio Microbiology 11/10/17 10:14 Blood-Venous Blood Culture - Final NO GROWTH AFTER 5 DAYS 11/11/17 10:07 Blood-Venous Blood Culture - Preliminary NO GROWTH AFTER 4 DAYS 11/11/17 10:07 Blood-Venous Blood Culture - Preliminary NO GROWTH AFTER 4 DAYS 11/08/17 17:00 Blood-Venous Blood Culture - Final NO GROWTH AFTER 5 DAYS 11/08/17 17:00 Blood-Venous Gram Stain - Final TEST NOT PERFORMED 11/11/17 09:57 Naris MRSA Culture (Admit) - Final MRSA NOT DETECTED 11/08/17 13:00 Blood-Venous S.aureus & Coag-Neg Staph PNA FISH - Final 11/08/17 13:00 Blood-Venous Blood Culture - Final Coagulase Neg Staphylococcus 11/08/17 13:00 Blood-Venous Gram Stain - Final 11/09/17 11:24 Nose MRSA Culture (Admit) - Final MRSA NOT DETECTED Assessment and Plan (1) AV shunt malfunction Status: Acute (2) CKD (chronic kidney disease) stage 5, GFR less than 15 ml/min Status: Acute (3) Dialysis AV fistula malfunction Status: Acute (4) Bacteremia due to Gram-positive bacteria Status: Acute - Assessment and Plan (Free Text) Assessment: A/P- 52 year old male with ESRD on HD with malfunctioning LUE AVF site and now found to have GPC in blood cx. afebrile normal wbc count blood cx- coag neg staph, 1 of the 2 admission blood cx ( most likely a contaminant) repeat blood cx- neg x 3 TTE- no vegetations as per report by . plan- started teflaro yesterday for treatment of this coag neg stpah bactermia . advise to continue it for another 2 days . most likely was a contaminant as all other blood cx negative and pt. not septic. PD and HD line managements as per renal doc. All above d/w patient and he verbalizes full understanding of all above. all above also d/w .
[2017-11-15] MEDS: GABAPENTIN ENACARBIL 600 MG PO SCH (22:03)
[2017-11-15] MEDS: Insulin Detemir 100 Units/ml Inj SC SCH (22:06)
[2017-11-15] MEDS: HYDROmorphone 0.5 mg/0.5 ml ISec IVP PRN (22:09)
[2017-11-15] MEDS: Oxycodone/Acetaminophen 5/325 mg Tab PO PRN (23:39)
[2017-11-16] MEDS: HYDROmorphone 0.5 mg/0.5 ml ISec IVP PRN ×5 (02:02→20:07)
[2017-11-16] MEDS: Oxycodone/Acetaminophen 5/325 mg Tab PO PRN ×4 (03:57→23:26)
[2017-11-16] MEDS: Insulin Lispro (humaLOG) 100 Units/ml Inj SC SCH ×4 (07:00→22:00)
[2017-11-16] MEDS: Verapamil SR 120 MG CApsule PO SCH (09:00)
[2017-11-16] MEDS: Digoxin 125 mcg (0.125 mg) Tab PO SCH (09:00)
--- NOTE | 2017-11-16 09:41 | CP.PCM.PN ---
Subjective - Date & Time of Evaluation Date of Evaluation: 11/16/17 Time of Evaluation: 09:39 - Subjective Subjective: Surgery Pt is seen and examined. Pt underwent PD catheter placement yesterday and tolerated it well. Pain controlled. Denies Fever, nausea, diarrhea. catheter was flushed and aspirated. Objective - Vital Signs/Intake and Output Vital Signs (last 24 hours): Temp Pulse Resp BP Pulse Ox 98.3 F 80 20 110/67 100 11/16/17 08:00 11/16/17 08:00 11/16/17 08:00 11/16/17 08:00 11/16/17 08:00 - Medications Medications: Current Medications Allopurinol (Zyloprim) 100 mg PO DAILY [facility] Last Admin: 11/15/17 08:26 Dose: Not Given Apixaban (Eliquis) 2.5 mg PO Q12 [facility] PRN Reason: Protocol Last Admin: 11/12/17 11:16 Dose: Not Given Atorvastatin Calcium (Lipitor) 40 mg PO [facility] Calcium Acetate (Phoslo) 667 mg PO TID [facility] Last Admin: 11/15/17 18:12 Dose: 667 mg Cholecalciferol (Vitamin D) 2,000 intlu PO DAILY [facility] Last Admin: 11/15/17 08:26 Dose: Not Given Digoxin (Digoxin) 0.125 mg PO [facility] Last Admin: 11/14/17 13:50 Dose: 0.125 mg Diphenoxylate HCl/Atropine (Lomotil 0.025-2.5 Mg Tablet) 1 tab PO QID [facility] Last Admin: 11/15/17 22:08 Dose: 1 tab Home Med (Gabapentin Enacarbil [Horizant]) 300 mg PO DAILY [facility] Last Admin: 11/15/17 13:28 Dose: Not Given Home Med (Gabapentin Enacarbil [Horizant]) 600 mg PO [facility] Last Admin: 11/15/17 22:03 Dose: 600 mg Hydromorphone HCl (Dilaudid) 2 mg IVP Q4 PRN PRN Reason: Pain, severe (8-10) Last Admin: 11/16/17 06:10 Dose: 2 mg Ceftaroline Fosamil 200 mg/ (Sodium Chloride) 100 mls @ 100 mls/hr IVPB Q12 [facility] PRN Reason: Protocol Last Admin: 11/15/17 23:28 Dose: 100 mls/hr Insulin Detemir (Levemir) 40 units SC HS [facility] Last Admin: 11/15/17 22:06 Dose: Not Given Insulin Human Lispro (Humalog) 0 units SC ACHS [facility] PRN Reason: Protocol Last Admin: 11/16/17 07:00 Dose: Not Given Labetalol HCl (Trandate) 200 mg PO Q8 [facility] Last Admin: 11/16/17 00:16 Dose: Not Given Lactulose (Generlac) 10 gm [place] HS PRN PRN Reason: Constipation Megestrol Acetate (Megace) 600 mg PO DAILY [facility] Last Admin: 11/15/17 08:25 Dose: Not Given Minoxidil (Minoxidil) 2.5 mg PO Q12 [facility] Last Admin: 11/15/17 22:04 Dose: Not Given Dxudd-6-Gjam Ethyl Esters (Lovaza) 1 gm PO BID [facility] Last Admin: 11/15/17 18:11 Dose: 1 gm Oxycodone/Acetaminophen (Percocet 5/325 Mg Tab) 2 tab PO Q4 PRN PRN Reason: Pain, moderate (4-7) Stop: 11/18/17 10:24 Last Admin: 11/16/17 03:57 Dose: 2 tab Pantoprazole Sodium (Protonix Ec Tab) 40 mg PO DAILY [facility] Last Admin: 11/15/17 08:25 Dose: Not Given Paroxetine HCl (Paxil) 10 mg PO DAILY [facility] Last Admin: 11/15/17 08:25 Dose: Not Given Sevelamer HCl (Renagel) 1,600 mg PO TID [facility] Last Admin: 11/15/17 18:12 Dose: 1,600 mg Tamsulosin HCl (Flomax) 0.4 mg PO DAILY [facility] Last Admin: 11/15/17 08:52 Dose: Not Given Ticagrelor (Brilinta) 90 mg PO Q12 [facility] Last Admin: 11/15/17 22:02 Dose: 90 mg Verapamil HCl (Calan Sr Capsule) 120 mg PO DAILY [facility] Last Admin: 11/15/17 08:23 Dose: Not Given Vitamin B Complex/Vit C/Folic Acid (Nephro-Garcia) 1 tab PO DAILY [facility] Last Admin: 11/15/17 08:25 Dose: Not Given - Labs Labs: 11/15/17 08:19 11/15/17 08:19 PT 12.2 Seconds (9.8-13.1) 11/10/17 04:40 INR 1.1 (0.9-1.2) 11/10/17 04:40 APTT 34.3 Seconds (25.6-37.1) 11/08/17 17:15 - Constitutional Appears: No Acute Distress - Head Exam Head Exam: ATRAUMATIC, NORMAL INSPECTION, NORMOCEPHALIC - Eye Exam Eye Exam: EOMI, Normal appearance, PERRL Pupil Exam: NORMAL ACCOMODATION, PERRL - ENT Exam ENT Exam: Mucous Membranes Moist, Normal Exam - Neck Exam Neck Exam: Full ROM, Normal Inspection. absent: Lymphadenopathy - Respiratory Exam Respiratory Exam: NORMAL BREATHING PATTERN - Cardiovascular Exam Cardiovascular Exam: REGULAR RHYTHM, +S1, +S2. absent: Murmur - GI/Abdominal Exam GI & Abdominal Exam: Soft, Normal Bowel Sounds. absent: Distended, Firm, Guarding, Tenderness Additional comments: Catheter in place. no bleeding. Incision C/D/I. Catheter patent - Extremities Exam Extremities Exam: Full ROM, Normal Capillary Refill, Normal Inspection. absent : Joint Swelling, Pedal Edema - Back Exam Back Exam: NORMAL INSPECTION - Neurological Exam Neurological Exam: Alert, Awake, CN II-XII Intact, Normal Gait, Oriented x3 - Psychiatric Exam Psychiatric exam: Normal Affect, Normal Mood - Skin Skin Exam: Dry, Intact, Normal Color, Warm Assessment and Plan - Assessment and Plan (Free Text) Assessment: POD 1 s/p PD catheter placement -OK to start using the PD catheter -PD catheter use education and setup needed -May DC temporaty catheter when PD catheter being used LORENZO saini
[2017-11-16] MEDS: GABAPENTIN ENACARBIL 300 MG PO SCH (10:11)
[2017-11-16] MEDS: Megestrol Acetate 40 mg/ml Cup PO SCH ×2 (10:13→10:37)
[2017-11-16] MEDS: Omega-3-Acid Ethyl Esters 1 GM Cap PO SCH ×2 (10:13→16:58)
[2017-11-16] MEDS: Multivitamin Vitamin B Complex (Nephro-Vite) Tab PO SCH (10:14)
[2017-11-16] MEDS: Pantoprazole 40 mg EC Tab PO SCH (10:16)
[2017-11-16] MEDS: Cholecalciferol 1,000 INTLU TAB PO SCH (10:17)
[2017-11-16] MEDS: Atropine-Diphenoxylate 0.025-2.5 mg Tab PO SCH ×4 (10:22→22:09)
--- NOTE | 2017-11-16 11:32 | CP.PCM.PN ---
Subjective - Date & Time of Evaluation Date of Evaluation: 11/16/17 Time of Evaluation: 12:00 - Subjective Subjective: SEEN ON RENAL F/U SEEN ON HD C/O MILD LOCAL ABDO PAIN 2/2 PD CATH INSERTION S/P PD CATH INSERTION YESTERDAY NEEDS PD EDUCATION .. WE CANNOT FULLY USE THE CATH TILL 2 WEEKS Objective - Vital Signs/Intake and Output Vital Signs (last 24 hours): Temp Pulse Resp BP Pulse Ox 98.3 F 80 20 110/67 100 11/16/17 08:00 11/16/17 08:00 11/16/17 08:00 11/16/17 08:00 11/16/17 08:00 - Medications Medications: Current Medications Allopurinol (Zyloprim) 100 mg PO DAILY [facility] Last Admin: 11/16/17 10:18 Dose: 100 mg Apixaban (Eliquis) 2.5 mg PO Q12 [facility] PRN Reason: Protocol Last Admin: 11/16/17 10:11 Dose: 2.5 mg Atorvastatin Calcium (Lipitor) 40 mg PO [facility] Calcium Acetate (Phoslo) 667 mg PO TID [facility] Last Admin: 11/16/17 10:15 Dose: 667 mg Cholecalciferol (Vitamin D) 2,000 intlu PO DAILY [facility] Last Admin: 11/16/17 10:17 Dose: 2,000 intlu Digoxin (Digoxin) 0.125 mg PO MWF [facility] Last Admin: 11/14/17 13:50 Dose: 0.125 mg Diphenoxylate HCl/Atropine (Lomotil 0.025-2.5 Mg Tablet) 1 tab PO QID [facility] Last Admin: 11/16/17 10:22 Dose: 1 tab Home Med (Gabapentin Enacarbil [Horizant]) 300 mg PO DAILY [facility] Last Admin: 11/16/17 10:11 Dose: 300 mg Home Med (Gabapentin Enacarbil [Horizant]) 600 mg PO HS [facility] Last Admin: 11/15/17 22:03 Dose: 600 mg Hydromorphone HCl (Dilaudid) 2 mg IVP Q4 PRN PRN Reason: Pain, severe (8-10) Last Admin: 11/16/17 10:22 Dose: 2 mg Ceftaroline Fosamil 200 mg/ (Sodium Chloride) 100 mls @ 100 mls/hr IVPB Q12 [facility] PRN Reason: Protocol Last Admin: 11/15/17 23:28 Dose: 100 mls/hr Insulin Detemir (Levemir) 40 units SC HS [facility] Last Admin: 11/15/17 22:06 Dose: Not Given Insulin Human Lispro (Humalog) 0 units SC ACHS [facility] PRN Reason: Protocol Last Admin: 11/16/17 07:00 Dose: Not Given Labetalol HCl (Trandate) 200 mg PO Q8 [facility] Last Admin: 11/16/17 00:16 Dose: Not Given Lactulose (Generlac) 10 gm [place] HS PRN PRN Reason: Constipation Megestrol Acetate (Megace) 600 mg PO DAILY [facility] Last Admin: 11/16/17 10:37 Dose: Not Given Minoxidil (Minoxidil) 2.5 mg PO Q12 [facility] Last Admin: 11/16/17 10:14 Dose: 2.5 mg Tgioc-6-Mncr Ethyl Esters (Lovaza) 1 gm PO BID [facility] Last Admin: 11/16/17 10:13 Dose: 1 gm Oxycodone/Acetaminophen (Percocet 5/325 Mg Tab) 2 tab PO Q4 PRN PRN Reason: Pain, moderate (4-7) Stop: 11/18/17 10:24 Last Admin: 11/16/17 03:57 Dose: 2 tab Pantoprazole Sodium (Protonix Ec Tab) 40 mg PO DAILY [facility] Last Admin: 11/16/17 10:16 Dose: 40 mg Paroxetine HCl (Paxil) 10 mg PO DAILY [facility] Last Admin: 11/16/17 10:15 Dose: 10 mg Sevelamer HCl (Renagel) 1,600 mg PO TID [facility] Last Admin: 11/16/17 10:16 Dose: 1,600 mg Tamsulosin HCl (Flomax) 0.4 mg PO DAILY [facility] Last Admin: 11/16/17 10:11 Dose: 0.4 mg Ticagrelor (Brilinta) 90 mg PO Q12 [facility] Last Admin: 11/16/17 10:09 Dose: 90 mg Verapamil HCl (Calan Sr Capsule) 120 mg PO DAILY [facility] Last Admin: 11/15/17 08:23 Dose: Not Given Vitamin B Complex/Vit C/Folic Acid (Nephro-Garcia) 1 tab PO DAILY [facility] Last Admin: 11/16/17 10:14 Dose: 1 tab - Labs Labs: 07/03/18 08:19 11/15/17 08:19 PT 12.2 Seconds (9.8-13.1) 11/10/17 04:40 INR 1.1 (0.9-1.2) 11/10/17 04:40 APTT 34.3 Seconds (25.6-37.1) 11/08/17 17:15 Assessment and Plan - Assessment and Plan (Free Text) Assessment: ESRD ON HS M W F ANEMIA OF CKD .. H/H STABLE LACK OF VASCULAR ACCESS FOR HD .. S/P PD CATH INSERTION SEPSIS ON IVAB MMP P : C/O WITH HD M W TILL WE CAN USE THE PD CATH C/O .CURRENT MEDS NEEDS CATH FLUSH NEEDS PD EDUCATION
--- NOTE | 2017-11-16 16:52 | PN ---
DATE: 11/15/2017 SUBJECTIVE: The patient was seen on 11/15/2017. He was not in any cardiopulmonary distress. The patient was status post insertion of peritoneal catheter. PHYSICAL EXAMINATION: VITAL SIGNS: Blood pressure was 130/76, temperature 97.8, respiratory rate 20, and pulse 85. NECK: No JVD. No carotid bruits. No lymph node. No thyromegaly. CHEST AND LUNGS: Bilateral symmetrical expansion. Good air exchange. No rales. No rhonchi. CARDIOVASCULAR SYSTEM: PMI not localized. S1 and S2. No additional sounds. ABDOMEN: The patient has a new peritoneal catheter replaced. EXTREMITIES: Right metatarsal amputation. [place]: Alert, awake, oriented x2. No new neurological deficits could be appreciated. ASSESSMENT: 1. End-stage renal disease, currently on hemodialysis through a femoral catheter and the patient will start peritoneal dialysis. 2. Hypertension. 3. Type 2 diabetes mellitus. 4. Coronary artery disease. PLAN: Continue current medications and follow Nephrology recommendations. Francisco MD Kelvin
[2017-11-16] MEDS: GABAPENTIN ENACARBIL 600 MG PO SCH (22:10)
[2017-11-16] MEDS: Insulin Detemir 100 Units/ml Inj SC SCH (23:27)
[2017-11-17] MEDS: HYDROmorphone 0.5 mg/0.5 ml ISec IVP PRN ×6 (00:26→22:54)
[2017-11-17] MEDS: Insulin Lispro (humaLOG) 100 Units/ml Inj SC SCH ×4 (06:55→22:30)
[2017-11-17] MEDS: Megestrol Acetate 40 mg/ml Cup PO SCH (09:18)
[2017-11-17] MEDS: Pantoprazole 40 mg EC Tab PO SCH (09:20)
[2017-11-17] MEDS: Omega-3-Acid Ethyl Esters 1 GM Cap PO SCH ×2 (09:20→18:37)
[2017-11-17] MEDS: Multivitamin Vitamin B Complex (Nephro-Vite) Tab PO SCH (09:20)
[2017-11-17] MEDS: Verapamil SR 120 MG CApsule PO SCH (09:20)
[2017-11-17] MEDS: Cholecalciferol 1,000 INTLU TAB PO SCH (09:21)
[2017-11-17] MEDS: GABAPENTIN ENACARBIL 300 MG PO SCH (09:22)
[2017-11-17] MEDS: Atropine-Diphenoxylate 0.025-2.5 mg Tab PO SCH ×4 (09:24→22:37)
--- NOTE | 2017-11-17 10:06 | CP.PCM.PN ---
Subjective - Date & Time of Evaluation Date of Evaluation: 11/17/17 Time of Evaluation: 10:06 - Subjective Subjective: ID note- Patient seen and examined today. Patient denies any complaints and states he feels better. Objective - Vital Signs/Intake and Output Vital Signs (last 24 hours): Temp Pulse Resp BP Pulse Ox 98.4 F 69 20 153/83 H 99 11/17/17 08:00 11/17/17 08:00 11/17/17 08:00 11/17/17 08:00 11/17/17 08:00 - Medications Medications: Current Medications Allopurinol (Zyloprim) 100 mg PO DAILY [facility] Last Admin: 11/17/17 09:17 Dose: 100 mg Apixaban (Eliquis) 2.5 mg PO Q12 [facility] PRN Reason: Protocol Last Admin: 11/17/17 09:18 Dose: 2.5 mg Atorvastatin Calcium (Lipitor) 40 mg PO [facility] Last Admin: 11/16/17 22:09 Dose: 40 mg Calcium Acetate (Phoslo) 667 mg PO TID [facility] Last Admin: 11/17/17 09:19 Dose: 667 mg Cholecalciferol (Vitamin D) 2,000 intlu PO DAILY [facility] Last Admin: 11/17/17 09:21 Dose: 2,000 intlu Digoxin (Digoxin) 0.125 mg PO MWF [facility] Last Admin: 11/16/17 09:00 Dose: Not Given Diphenoxylate HCl/Atropine (Lomotil 0.025-2.5 Mg Tablet) 1 tab PO QID [facility] Last Admin: 11/17/17 09:24 Dose: 1 tab Home Med (Gabapentin Enacarbil [Horizant]) 300 mg PO DAILY [facility] Last Admin: 11/17/17 09:22 Dose: 300 mg Home Med (Gabapentin Enacarbil [Horizant]) 600 mg PO [facility] Last Admin: 11/16/17 22:10 Dose: 600 mg Hydromorphone HCl (Dilaudid) 2 mg IVP Q4 PRN PRN Reason: Pain, severe (8-10) Last Admin: 11/17/17 09:32 Dose: 2 mg Ceftaroline Fosamil 200 mg/ (Sodium Chloride) 100 mls @ 100 mls/hr IVPB Q12 [facility] PRN Reason: Protocol Last Admin: 11/17/17 09:21 Dose: 100 mls/hr Insulin Detemir (Levemir) 40 units SC HS [facility] Last Admin: 11/16/17 23:27 Dose: 40 units Insulin Human Lispro (Humalog) 0 units SC ACHS [facility] PRN Reason: Protocol Last Admin: 11/17/17 06:55 Dose: Not Given Labetalol HCl (Trandate) 200 mg PO Q8 [facility] Last Admin: 11/17/17 09:19 Dose: 200 mg Lactulose (Generlac) 10 gm [place] HS PRN PRN Reason: Constipation Megestrol Acetate (Megace) 600 mg PO DAILY [facility] Last Admin: 11/17/17 09:18 Dose: Not Given Minoxidil (Minoxidil) 2.5 mg PO Q12 [facility] Last Admin: 11/17/17 09:20 Dose: 2.5 mg [id number] Ethyl Esters (Lovaza) 1 gm PO BID [facility] Last Admin: 11/17/17 09:20 Dose: 1 gm Oxycodone/Acetaminophen (Percocet 5/325 Mg Tab) 2 tab PO Q4 PRN PRN Reason: Pain, moderate (4-7) Stop: 11/18/17 10:24 Last Admin: 11/16/17 23:26 Dose: 2 tab Pantoprazole Sodium (Protonix Ec Tab) 40 mg PO DAILY [facility] Last Admin: 11/17/17 09:20 Dose: 40 mg Paroxetine HCl (Paxil) 10 mg PO DAILY [facility] Last Admin: 11/17/17 09:20 Dose: 10 mg Sevelamer HCl (Renagel) 1,600 mg PO TID [facility] Last Admin: 11/17/17 09:18 Dose: 1,600 mg Tamsulosin HCl (Flomax) 0.4 mg PO DAILY [facility] Last Admin: 11/17/17 09:17 Dose: 0.4 mg Ticagrelor (Brilinta) 90 mg PO Q12 [facility] Last Admin: 11/17/17 09:19 Dose: 90 mg Verapamil HCl (Calan Sr Capsule) 120 mg PO DAILY [facility] Last Admin: 11/17/17 09:20 Dose: 120 mg Vitamin B Complex/Vit C/Folic Acid (Nephro-Garcia) 1 tab PO DAILY [facility] Last Admin: 11/17/17 09:20 Dose: 1 tab - Labs Labs: - Additional Findings Additional findings: Constitutional Appears: No Acute Distress - Head Exam Head Exam: ATRAUMATIC - Eye Exam Eye Exam: EOMI - ENT Exam ENT Exam: Normal Oropharynx - Neck Exam Neck exam: Positive for: Full Rom - Respiratory Exam Respiratory Exam: Clear to Auscultation Bilateral, NORMAL BREATHING PATTERN - Cardiovascular Exam Cardiovascular Exam: RRR, +S1, +S2 - GI/Abdominal Exam GI & Abdominal Exam: Normal Bowel Sounds, Soft Additional comments: NT, ND new PD dialysis catheter in place in right lower abd region - Exam Additional comments: small 2 x 2 cm oval sacral decub stage 1-2 , no opening, no discharge - Extremities Exam Additional comments: right foot s/p TMA clean/dry/intact - Neurological Exam Neurological exam: Alert, Oriented x3 - Additional Findings Additional findings: lines- temp HD catheter in right femoral region ( was placed yesterday as per pt) Laboratory Results - last 72 hr 11/14/17 11/14/17 11/15/17 16:49 21:24 05:05 WBC RBC Hgb Hct MCV MCH MCHC RDW Plt Count MPV Neut % (Auto) Lymph % (Auto) Robertson % (Auto) Eos % (Auto) Baso % (Auto) Neut # (Auto) Lymph # (Auto) Robertson # (Auto) Eos # (Auto) Baso # (Auto) Sodium Potassium Chloride Carbon Dioxide Anion Gap BUN Creatinine Est GFR ( Amer) Est GFR (Non-Af Amer) POC Glucose (mg/dL) 125 H 191 H 183 H Random Glucose Calcium Total Bilirubin AST ALT Alkaline Phosphatase Total Protein Albumin Globulin Albumin/Globulin Ratio 11/15/17 11/15/17 11/15/17 08:19 08:19 10:21 WBC 6.3 RBC 4.26 L Hgb 11.3 L Hct 34.5 L MCV 81.0 MCH 26.4 L MCHC 32.6 L RDW 16.3 H Plt Count 222 MPV 7.3 Neut % (Auto) 66.4 Lymph % (Auto) 16.4 L Robertson % (Auto) 12.8 H Eos % (Auto) 3.5 Baso % (Auto) 0.9 Neut # (Auto) 4.2 Lymph # (Auto) 1.0 Robertson # (Auto) 0.8 Eos # (Auto) 0.2 Baso # (Auto) 0.1 Sodium 137 Potassium 4.6 Chloride 97 L Carbon Dioxide 27 Anion Gap 18 BUN 37 H Creatinine 9.7 H* Est GFR ( Amer) 7 Est GFR (Non-Af Amer) 6 POC Glucose (mg/dL) 190 H Random Glucose 214 H Calcium 8.3 L Total Bilirubin 0.7 AST 28 ALT 38 Alkaline Phosphatase 155 H D Total Protein 7.6 Albumin 4.1 Globulin 3.5 Albumin/Globulin Ratio 1.2 11/15/17 11/15/17 11/15/17 11:52 15:54 21:25 WBC RBC Hgb Hct MCV MCH MCHC RDW Plt Count MPV Neut % (Auto) Lymph % (Auto) Robertson % (Auto) Eos % (Auto) Baso % (Auto) Neut # (Auto) Lymph # (Auto) Robertson # (Auto) Eos # (Auto) Baso # (Auto) Sodium Potassium Chloride Carbon Dioxide Anion Gap BUN Creatinine Est GFR ( Amer) Est GFR (Non-Af Amer) POC Glucose (mg/dL) 167 H 117 H 105 Random Glucose Calcium Total Bilirubin AST ALT Alkaline Phosphatase Total Protein Albumin Globulin Albumin/Globulin Ratio 11/16/17 11/16/17 11/16/17 05:09 11:36 16:39 WBC RBC Hgb Hct MCV MCH MCHC RDW Plt Count MPV Neut % (Auto) Lymph % (Auto) Robertson % (Auto) Eos % (Auto) Baso % (Auto) Neut # (Auto) Lymph # (Auto) Robertson # (Auto) Eos # (Auto) Baso # (Auto) Sodium Potassium Chloride Carbon Dioxide Anion Gap BUN Creatinine Est GFR ( Amer) Est GFR (Non-Af Amer) POC Glucose (mg/dL) 111 H 137 H 146 H Random Glucose Calcium Total Bilirubin AST ALT Alkaline Phosphatase Total Protein Albumin Globulin Albumin/Globulin Ratio 11/16/17 11/17/17 11/17/17 21:52 05:22 11:08 WBC RBC Hgb Hct MCV MCH MCHC RDW Plt Count MPV Neut % (Auto) Lymph % (Auto) Robertson % (Auto) Eos % (Auto) Baso % (Auto) Neut # (Auto) Lymph # (Auto) Robertson # (Auto) Eos # (Auto) Baso # (Auto) Sodium Potassium Chloride Carbon Dioxide Anion Gap BUN Creatinine Est GFR ( Amer) Est GFR (Non-Af Amer) POC Glucose (mg/dL) 165 H 148 H 139 H Random Glucose Calcium Total Bilirubin AST ALT Alkaline Phosphatase Total Protein Albumin Globulin Albumin/Globulin Ratio Microbiology 11/11/17 10:07 Blood-Venous Blood Culture - Final NO GROWTH AFTER 5 DAYS 11/11/17 10:07 Blood-Venous Gram Stain - Final TEST NOT PERFORMED 11/11/17 10:07 Blood-Venous Blood Culture - Final NO GROWTH AFTER 5 DAYS 11/11/17 10:07 Blood-Venous Gram Stain - Final TEST NOT PERFORMED 11/10/17 10:14 Blood-Venous Blood Culture - Final NO GROWTH AFTER 5 DAYS 11/08/17 17:00 Blood-Venous Blood Culture - Final NO GROWTH AFTER 5 DAYS 11/08/17 17:00 Blood-Venous Gram Stain - Final TEST NOT PERFORMED 11/11/17 09:57 Naris MRSA Culture (Admit) - Final MRSA NOT DETECTED 11/08/17 13:00 Blood-Venous S.aureus & Coag-Neg Staph PNA FISH - Final 11/08/17 13:00 Blood-Venous Blood Culture - Final Coagulase Neg Staphylococcus 11/08/17 13:00 Blood-Venous Gram Stain - Final 11/09/17 11:24 Nose MRSA Culture (Admit) - Final MRSA NOT DETECTED Assessment and Plan (1) AV shunt malfunction Status: Acute (2) CKD (chronic kidney disease) stage 5, GFR less than 15 ml/min Status: Acute (3) Dialysis AV fistula malfunction Status: Acute (4) Bacteremia due to Gram-positive bacteria Status: Acute - Assessment and Plan (Free Text) Assessment: A/P- 52 year old male with ESRD on HD with malfunctioning LUE AVF site . s/p PD placement 2 days ago. remains afebrile normal wbc count blood cx- coag neg staph, 1 of the 2 admission blood cx ( most likely a contaminant) repeat blood cx- neg x 3 TTE- no vegetations as per report by . plan- has completed 4 days of IV teflaro and prior to that dapto 2 days for this coag neg staph bacteremia ( most likely a contaminant which was only in 1 of the 2 bottles from admission cx. all other blood cx are negative and remain negative. most likely was a contaminant as all other blood cx negative and pt. not septic. d/c IV teflaro. PD and HD line managements as per renal doc. from ID standpoint pt. can be d/c and f/u with his renal and PMD doctors. advise to check 1 blood cx as outpatient in few days. All above d/w patient and he verbalizes full understanding of all above. all above also d/w .
--- NOTE | 2017-11-17 10:35 | PN ---
DATE: 11/16/2017 SUBJECTIVE: The patient is seen today during hemodialysis. He is not in any cardiopulmonary distress. OBJECTIVE: VITAL SIGNS: Blood pressure 110/67, temperature 98.3, respiratory rate 20, and pulse 80. HEENT: Slightly pale mucosa of the conjunctivae. NECK: Supple. No JVD. No carotid bruit. No lymph node. No thyromegaly. CHEST AND LUNGS: Bilateral symmetrical expansion. Good air exchange. No rales. No rhonchi. CARDIOVASCULAR SYSTEM: PMI not localized. S1 and S2. No additional sounds. ABDOMEN: Normoactive bowel sounds. Peritoneal dialysis in place. EXTREMITIES: Right metatarsal amputation. DESKTOP PUBLISHER: Alert, awake, oriented x2, and no neurological deficit could be appreciated. ASSESSMENT: 1. End-stage renal disease on hemodialysis through femoral catheter today, but the patient will be changed to peritoneal dialysis. 2. Type 2 diabetes mellitus. 3. Hypertension. 4. Coronary artery disease, status post percutaneous coronary intervention. PLAN: Continue current management and follow Nephrology recommendations and continue Accu-Cheks with insulin coverage. Continue double antiplatelets and we will resume the patient on Eliquis for paroxysmal atrial fibrillation. Mildred Warren MD
--- NOTE | 2017-11-17 12:41 | CP.PCM.PCO ---
Assessment/Plan - Assessment and Plan (Free Text) Assessment: Patient seen and examined this morning. Vital signs stable. Patient with new PD catheter S
--- NOTE | 2017-11-17 19:16 | PN ---
DATE: 11/17/2017 SUBJECTIVE: The patient is seen today, 11/17/2017. He is not in any cardiopulmonary distress status post placement of peritoneal catheter. PHYSICAL EXAMINATION: VITAL SIGNS: Blood pressure is 134/69, temperature 97.9, respiratory rate 20, and pulse 69. HEENT: Pupils equal and reactive to light. Normal-appearing mucosa of the conjunctivae, oropharyngeal and nasal membrane mucosa. NECK: Supple. No JVD. No carotid bruits. No lymph nodes. No thyromegaly. CHEST AND LUNGS: Bilateral symmetrical expansion. Good air exchange. No rales. No rhonchi. CARDIOVASCULAR SYSTEM: PMI not localized. S1 and S2. No additional sounds. ABDOMEN: Normoactive bowel sounds. No organomegaly. No masses. No tenderness. EXTREMITIES: No cyanosis. No clubbing. No edema. Right foot transmetatarsal amputation. INDOOR PLANT TECHNICIAN: Alert, awake, and oriented x2. NEUROLOGIC: No neurological deficit could be appreciated. ASSESSMENT AND PLAN: Malfunctioning AV shunt status post placement of the Shiley catheter in the right femoral. The patient is currently on hemodialysis and we will plan for discharge to Subacute Rehabilitation until the patient will be trained on peritoneal dialysis and discharged home. Mildred Warren MD
--- NOTE | 2017-11-17 21:58 | CP.PCM.PN ---
Subjective - Date & Time of Evaluation Date of Evaluation: 11/17/17 Time of Evaluation: 15:00 - Subjective Subjective: SEEN ON RENAL F/U FEELS BETTER ON HD M W F VIA R FEMORAL CATH Objective - Vital Signs/Intake and Output Vital Signs (last 24 hours): Temp Pulse Resp BP Pulse Ox 97.9 F 65 16 147/84 100 11/17/17 20:11 11/17/17 20:11 11/17/17 20:11 11/17/17 20:11 11/17/17 20:11 - Medications Medications: Current Medications Allopurinol (Zyloprim) 100 mg PO DAILY [facility] Last Admin: 11/17/17 09:17 Dose: 100 mg Apixaban (Eliquis) 2.5 mg PO Q12 [facility] PRN Reason: Protocol Last Admin: 11/17/17 09:18 Dose: 2.5 mg Atorvastatin Calcium (Lipitor) 40 mg PO [facility] Last Admin: 11/16/17 22:09 Dose: 40 mg Calcium Acetate (Phoslo) 667 mg PO TID [facility] Last Admin: 11/17/17 18:37 Dose: 667 mg Cholecalciferol (Vitamin D) 2,000 intlu PO DAILY [facility] Last Admin: 11/17/17 09:21 Dose: 2,000 intlu Digoxin (Digoxin) 0.125 mg PO F [facility] Last Admin: 11/16/17 09:00 Dose: Not Given Diphenoxylate HCl/Atropine (Lomotil 0.025-2.5 Mg Tablet) 1 tab PO QID [facility] Last Admin: 11/17/17 18:36 Dose: 1 tab Home Med (Gabapentin Enacarbil [Horizant]) 300 mg PO DAILY [facility] Last Admin: 11/17/17 09:22 Dose: 300 mg Home Med (Gabapentin Enacarbil [Horizant]) 600 mg PO [facility] Last Admin: 11/16/17 22:10 Dose: 600 mg Hydromorphone HCl (Dilaudid) 2 mg IVP Q4 PRN PRN Reason: Pain, severe (8-10) Last Admin: 11/17/17 18:36 Dose: 2 mg Insulin Detemir (Levemir) 40 units SC [facility] Last Admin: 11/16/17 23:27 Dose: 40 units Insulin Human Lispro (Humalog) 0 units SC ACHS [facility] PRN Reason: Protocol Last Admin: 11/17/17 18:33 Dose: Not Given Labetalol HCl (Trandate) 200 mg PO Q8 [facility] Last Admin: 11/17/17 18:37 Dose: 200 mg Lactulose (Generlac) 10 gm [place] HS PRN PRN Reason: Constipation Megestrol Acetate (Megace) 600 mg PO DAILY [facility] Last Admin: 11/17/17 09:18 Dose: Not Given Minoxidil (Minoxidil) 2.5 mg PO Q12 [facility] Last Admin: 11/17/17 09:20 Dose: 2.5 mg [id number] Ethyl Esters (Lovaza) 1 gm PO BID [facility] Last Admin: 11/17/17 18:37 Dose: 1 gm Oxycodone/Acetaminophen (Percocet 5/325 Mg Tab) 2 tab PO Q4 [facility] PRN Reason: Pain, moderate (4-7) Stop: 11/18/17 10:24 Last Admin: 11/16/17 23:26 Dose: 2 tab Pantoprazole Sodium (Protonix Ec Tab) 40 mg PO DAILY [facility] Last Admin: 11/17/17 09:20 Dose: 40 mg Paroxetine HCl (Paxil) 10 mg PO DAILY [facility] Last Admin: 11/17/17 09:20 Dose: 10 mg Sevelamer HCl (Renagel) 1,600 mg PO TID [facility] Last Admin: 11/17/17 18:37 Dose: 1,600 mg Tamsulosin HCl (Flomax) 0.4 mg PO DAILY [facility] Last Admin: 11/17/17 09:17 Dose: 0.4 mg Ticagrelor (Brilinta) 90 mg PO Q12 [facility] Last Admin: 11/17/17 09:19 Dose: 90 mg Verapamil HCl (Calan Sr Capsule) 120 mg PO DAILY [facility] Last Admin: 11/17/17 09:20 Dose: 120 mg Vitamin B Complex/Vit C/Folic Acid (Nephro-Garcia) 1 tab PO DAILY [facility] Last Admin: 11/17/17 09:20 Dose: 1 tab - Labs Labs: 11/15/17 08:19 11/15/17 08:19 PT 12.2 Seconds (9.8-13.1) 11/10/17 04:40 INR 1.1 (0.9-1.2) 06/28/18 04:40 APTT 34.3 Seconds (25.6-37.1) 11/08/17 17:15 Assessment and Plan - Assessment and Plan (Free Text) Assessment: ESRD ON HD M W F ANEMIA OF CKD .. H/H STABLE MALFUNCTION OF MICHAEL ACCESS ..LACK OF VASCULAR ACCESS S/P PD CATH INSERTION P : C/O CURRENT CARE C/O PRESENT MANAGEMENT NEEDS 2 WEEKS TO START FULLY ON PD .. IN THE MEANTIME NEEDS TO STAY ON HD
[2017-11-17] MEDS: GABAPENTIN ENACARBIL 600 MG PO SCH (22:00)
[2017-11-17] MEDS: Insulin Detemir 100 Units/ml Inj SC SCH (22:51)
[2017-11-18] MEDS: HYDROmorphone 0.5 mg/0.5 ml ISec IVP PRN ×3 (03:27→16:14)
[2017-11-18] MEDS: Atropine-Diphenoxylate 0.025-2.5 mg Tab PO SCH ×3 (08:53→17:28)
[2017-11-18] MEDS: GABAPENTIN ENACARBIL 300 MG PO SCH (09:08)
[2017-11-18] MEDS: Cholecalciferol 1,000 INTLU TAB PO SCH (09:08)
[2017-11-18] MEDS: Digoxin 125 mcg (0.125 mg) Tab PO SCH (09:08)
[2017-11-18] MEDS: Pantoprazole 40 mg EC Tab PO SCH (09:09)
[2017-11-18] MEDS: Omega-3-Acid Ethyl Esters 1 GM Cap PO SCH ×2 (09:10→17:28)
[2017-11-18] MEDS: Multivitamin Vitamin B Complex (Nephro-Vite) Tab PO SCH (09:10)
[2017-11-18] MEDS: Verapamil SR 120 MG CApsule PO SCH (09:10)
[2017-11-18] MEDS: Megestrol Acetate 40 mg/ml Cup PO SCH (09:11)
[2017-11-18] MEDS: Insulin Lispro (humaLOG) 100 Units/ml Inj SC SCH ×3 (09:11→17:26)
[2017-11-18 09:12] VITALS: PULSE 74
[2017-11-18 13:02] VITALS: O2SAT 96
[2017-11-18 16:21] VITALS: BP 101/63; PULSE 71; RESP 18; TEMP 98.4
--- NOTE | 2017-11-18 18:41 | PN ---
DATE: 11/18/2017 SUBJECTIVE: The patient was seen today, 11/18/2017. He is not in any cardiopulmonary distress and the patient is afebrile and he is having dose of IV antibiotics today. PHYSICAL EXAMINATION: VITAL SIGNS: Blood pressure 121/67, temperature 98.4, respiratory rate 20, and pulse 74. HEENT: Pupils equal and reactive to light. Normal-appearing mucosa of the conjunctivae, oropharyngeal, and nasal membrane mucosa. NECK: Supple. No JVD. No carotid bruit. No lymph node. No thyromegaly. CHEST AND LUNGS: Bilateral symmetrical expansion. Good air exchange. No rales. No rhonchi. CARDIOVASCULAR SYSTEM: PMI not localized. S1 and S2. No additional sounds. ABDOMEN: Normoactive bowel sounds. No tenderness. No organomegaly. No masses. EXTREMITIES: No cyanosis, no clubbing, no edema. Positive right transmetatarsal amputation. CYLINDER BATCHER: Alert, awake, oriented x2. No neurological deficit could be appreciated. ASSESSMENT: 1. Malfunctioning hemodialysis catheter, status post placement of peritoneal dialysis catheter as well as right femoral dialysis catheter. 2. Hypertension. 3. Type 2 diabetes mellitus. 4. Coronary artery disease. 5. Paroxysmal atrial fibrillation. PLAN: Continue current medications and management and follow Nephrology recommendations, and the patient is for subacute rehabilitation after starting all the physical therapy. Francisco MD Kelvin
== END 2017-11-18 18:05 | DRG 981 ==
LOC: H.ER 15:15 → H.ERHOLD 19:02 → H.ICU/CCU 11-09 05:24 → H.TEL 11-11 09:57
PROVIDERS: ADMIT Internal Medicine; ATTEND Internal Medicine
PROC: 06HM33Z Insertion of Infusion Device into Right Femoral Vein, Percutaneous Approach (ICD-10-PCS; 2017-11-08)
PROC: B54BZZA Ultrasonography of Right Lower Extremity Veins, Guidance (ICD-10-PCS; 2017-11-08)
PROC: 5A1D70Z Performance of Urinary Filtration, Intermittent, Less than 6 Hours Per Day (ICD-10-PCS; 2017-11-09)
PROC: 5A1D70Z Performance of Urinary Filtration, Intermittent, Less than 6 Hours Per Day (ICD-10-PCS; 2017-11-14)
PROC: 0WHG03Z Insertion of Infusion Device into Peritoneal Cavity, Open Approach (ICD-10-PCS; principal; 2017-11-15 09:00)
PROC: 5A1D70Z Performance of Urinary Filtration, Intermittent, Less than 6 Hours Per Day (ICD-10-PCS; 2017-11-16)
PROC: 5A1D70Z Performance of Urinary Filtration, Intermittent, Less than 6 Hours Per Day (ICD-10-PCS; 2017-11-18)
DX: T82.510A Breakdown (mechanical) of surgically created arteriovenous fistula, initial encounter (principal); N18.6 End stage renal disease; I12.0 Hypertensive chronic kidney disease with stage 5 chronic kidney disease or end stage renal disease; R78.81 Bacteremia; Z94.0 Kidney transplant status; E87.5 Hyperkalemia; E87.70 Fluid overload, unspecified; B95.7 Other staphylococcus as the cause of diseases classified elsewhere; T82.41XA Breakdown (mechanical) of vascular dialysis catheter, initial encounter; D63.1 Anemia in chronic kidney disease; E11.22 Type 2 diabetes mellitus with diabetic chronic kidney disease; I25.10 Atherosclerotic heart disease of native coronary artery without angina pectoris; I48.0 Paroxysmal atrial fibrillation; L89.159 Pressure ulcer of sacral region, unspecified stage; Y83.2 Surgical operation with anastomosis, bypass or graft as the cause of abnormal reaction of the patient, or of later complication, without mention of misadventure at the time of the procedure; M81.0 Age-related osteoporosis without current pathological fracture; K21.9 Gastro-esophageal reflux disease without esophagitis; E78.00 Pure hypercholesterolemia, unspecified; G47.30 Sleep apnea, unspecified; F41.9 Anxiety disorder, unspecified; M19.90 Unspecified osteoarthritis, unspecified site; Z99.2 Dependence on renal dialysis; Z98.61 Coronary angioplasty status; Z79.4 Long term (current) use of insulin; Z79.01 Long term (current) use of anticoagulants; Z88.6 Allergy status to analgesic agent; Z88.1 Allergy status to other antibiotic agents

== ENCOUNTER 2017-11-19 18:53 | Inpatient (IN) | payer MEDICARE, MEDICAID ==
[2017-11-19 18:54] VITALS: BMI 25.0
[2017-11-19 20:22] LABS: VENOUS BLOOD GAS BASE EXCESS 3.4 mmol/L (0.0-2.0); VENOUS BLOOD GAS PCO2 48 mmHg (40-60); VENOUS BLOOD GAS PO2 48 mm/Hg (30-55); VENOUS BLOOD PH 7.39 (7.32-7.43)
[2017-11-19 20:29] LABS: BASO % 0.7 % (0.0-2.0); EOS # 0.3 K/uL (0.0-0.7); EOS % 4.3 % (0.0-4.0); HEMOGLOBIN 11.2 g/dL (12.0-18.0); LYMPH # 1.1 K/uL (1.0-4.3); LYMPH % 14.6 % (20.0-40.0); MEAN CELL VOLUME 81.2 fl (80.0-94.0); MEAN CORPUSCULAR HEMOGLOBIN 26.4 pg (27.0-31.0); MEAN CORPUSCULAR HGB CONC 32.6 g/dL (33.0-37.0); MEAN PLATELET VOLUME 7.4 fl (7.2-11.7); MONO # 1.6 K/uL (0.0-0.8); MONO % 21.5 % (0.0-10.0); NEUT # 4.3 K/uL (1.8-7.0); NEUT % 58.9 % (50.0-75.0); PLATELET COUNT 218 K/uL (130-400); RBC 4.25 Mil/uL (4.40-5.90); RED CELL DISTRIBUTION WIDTH 16.1 % (11.5-14.5); WHITE BLOOD COUNT 7.3 K/uL (4.8-10.8)
[2017-11-19 20:45] LABS: ALB/GLOB RATIO 1.2 (1.0-2.1); ALBUMIN 4.2 g/dL (3.5-5.0); CALCIUM 9.7 mg/dL (8.4-10.2); TROPONIN I 0.053 ng/mL (0.00-0.120)
[2017-11-19 21:40] LABS: INR 1.2 (0.9-1.2); PARTIAL THROMBOPLASTIN TIME 37.1 Seconds (25.6-37.1); PROTHROMBIN TIME 13.7 Seconds (9.8-13.1)
[2017-11-19 22:11] LABS: BANDS 2 % (0-2); LYMPHOCYTE 15 % (20-50); NEUTROPHIL 62 % (42-75); TOTAL CELLS COUNTED 100
--- NOTE | 2017-11-19 22:21 | ED PDOC ---
HPI: General Adult Time Seen by Provider: 11/19/17 19:03 Chief Complaint (Nursing): Altered Mental Status Chief Complaint (Provider): Weakness Onset/Duration Of Symptoms: Days (x1) Additional Complaint(s): Akash Appiah is a 52 y/o male with past medical history of anemia, atrial fibrillation, diabetes who presents to the ED complaining of weakness ongoing for x1 day. Patient's mother reports patient was placed in shelter for rehab after recently getting peritoneal dialysis cath that was placed while he was admitted to the hospital. According to the mother, patient has not eaten all day, has been excessively sleepy, has had no appetite, and has been feeling warm. Patient also reports that all his bones hurt. He denies any cough, vomiting, diarrhea, or abdominal pain. PMD: Mildred Warren Past Medical History Reviewed: Historical Data, Nursing Documentation, Vital Signs Vital Signs: Last Vital Signs Temp 97.6 F 11/20/17 15:53 Pulse 74 11/20/17 15:53 Resp 19 11/20/17 15:53 BP 156/90 H 11/20/17 15:53 Pulse Ox 95 11/20/17 15:53 - Medical History PMH: Anemia, Anxiety, Arthritis, Atrial Fibrillation, Cardia Arrhythmia, Depression, Diabetes (type II), Gastritis, GERD, HTN, Hypercholesterolemia, Osteoporosis, Peripheral Edema, End Stage Renal Disease, Chronic Kidney Disease , Sleep Apnea Denies: CHF, Fractures, HIV, Hypothyroidism, Kidney Stones - Surgical History Surgical History: Appendectomy, Endoscopy - Family History Family History: States: Unknown Family Hx, Hypertension - Home Medications Home Medications: Ambulatory Orders Medication Instructions Recorded Acetaminophen/Oxycodone Hydr 1 tab PO Q6H PRN 05/24/16 [Percocet 10/325 mg Tab] Febuxostat [Uloric] 40 mg PO DAILY 05/24/16 Apixaban [Eliquis] 2.5 mg PO Q12 12/24/16 Alprazolam [Xanax] 0.5 mg PO Q8 PRN 08/18/17 Folic Acid/Vit B Complex and C 1 tab PO DAILY 08/18/17 [Nephro-Garcia Tablet] Insulin Detemir [Levemir] 40 units SQ HS 08/18/17 Atorvastatin [Lipitor] 40 mg PO HS #30 tab 08/21/17 Digoxin [Digitek] 125 mcg PO MWF #30 tablet 08/21/17 Minoxidil 2.5 mg PO Q12 #30 tab 08/21/17 PARoxetine [Paxil] 10 mg PO DAILY #30 tab 08/21/17 Ticagrelor [Brilinta] 90 mg PO Q12 #60 tab 08/21/17 Verapamil HCl [Verapamil Sr] 120 mg PO DAILY #30 cap24h.pel 08/21/17 Atropine/Diphenoxylate [Lomotil 2 tab PO Q8 PRN 11/08/17 0.025-2.5 mg tablet] Calcium Acetate [Phoslo] 667 mg PO TID 11/08/17 Gabapentin Enacarbil [Horizant] 600 mg PO HS 11/08/17 Insulin Aspart, Recombinant 10 - 15 unit SC AC 11/08/17 [Novolog] Megestrol Acetate [Megace] 15 ml PO DAILY 11/08/17 [id number] Ethyl Esters 1 GM 1 gm PO BID 11/08/17 [Lovaza] Cholecalciferol [Vitamin D 1000 IU] 2,000 intlu PO DAILY tab 11/18/17 Pantoprazole [Protonix EC Tab] 40 mg PO DAILY ect 11/18/17 Sevelamer [Renagel] 1,600 mg PO TID tab 11/18/17 Gabapentin [Neurontin] 300 mg PO DAILY 11/19/17 Lactulose [Enulose] 15 ml PO HS PRN 11/19/17 Linaclotide [Linzess] 145 mcg PO DAILY PRN 11/19/17 Silver Sulfadiazine 1% [Silver 1 applic TP BID 11/19/17 Sulfadiazine] Tamsulosin [Flomax] 0.4 mg PO HS 11/19/17 - Allergies Allergies/Adverse Reactions: Allergies Allergy/AdvReac Type Severity Reaction Status Date / Time aspirin Allergy RASH Verified 11/08/17 15:24 ketorolac [From Toradol] Allergy RASH Verified 11/08/17 15:24 propoxyphene napsylate Allergy RASH Verified 11/08/17 15:24 [From Darvocet-N] vancomycin AdvReac RASH Verified 11/08/17 15:24 Review of Systems ROS Statement: Except As Marked, All Systems Reviewed And Found Negative Constitutional: Positive for: Weakness, Other (feeling warm, loss of appetite, excessive sleepiness) Respiratory: Negative for: Cough Gastrointestinal: Negative for: Vomiting, Abdominal Pain, Diarrhea Physical Exam - Reviewed Nursing Documentation Reviewed: Yes Vital Signs Reviewed: Yes - Physical Exam Appears: Positive for: No Acute Distress (but tired appearing) Head Exam: Positive for: ATRAUMATIC, NORMOCEPHALIC Skin: Positive for: Warm, Dry Eye Exam: Positive for: EOMI, PERRL ENT: Positive for: Other (dry mucous membranes) Neck: Positive for: Painless ROM, Supple Cardiovascular/Chest: Positive for: Regular Rate, Rhythm, Edema Respiratory: Positive for: Normal Breath Sounds. Negative for: Respiratory Distress Gastrointestinal/Abdominal: Positive for: Soft, Other (peritoneal dialysis catheter in place; no erythema). Negative for: Tenderness, Mass, Distended, Guarding Back: Positive for: Other (sacral decubitus right buttock) Extremity: Positive for: Normal ROM. Negative for: Deformity Lymphatic: Negative for: Adenopathy Neurologic/Psych: Positive for: Other (lethargic but arousable). Negative for: Alert, Motor/Sensory Deficits - Laboratory Results Result Diagrams: 11/19/17 20:19 11/19/17 20:19 - ECG O2 Sat by Pulse Oximetry: 100 (RA) Pulse Ox Interpretation: Normal Medical Decision Making Medical Decision Making: Time: 19:25 Initial Impression: Altered mental status Differential diagnosis including but not limited to electrolyte abnormality, sepsis, pneumonia, anemia, renal failure Initial Plan: --Type and screen --VBG --Head w/o contrast --EKG --CMP --Magnesium --Phosphorous --Troponin I --CBC with differential --PTT --Prothrombin time --RAD - chest portable --Blood culture --Urine culture Labs c/w renal failure with control potassium, no sepsis. EXAM: CT Head Without Intravenous Contrast EXAM DATE/TIME: 11/19/2017 9:55 PM CLINICAL HISTORY: 52 years old, male; Signs and symptoms; Altered mental status/memory loss; Other : Fever TECHNIQUE: Axial computed tomography images of the head/brain without intravenous contrast. All CT scans at this facility use at least one of these dose optimization techniques: automated exposure control; mA and/or kV adjustment per patient size (includes targeted exams where dose is matched to clinical indication); or iterative reconstruction. COMPARISON: CT - HEAD W/O CONTRAST 2015-09-04 12:26 FINDINGS: Brain: Normal. No hemorrhage. No significant white matter disease. No edema. Ventricles: Normal. No ventriculomegaly. Bones/joints: Normal. No acute fracture. Sinuses: Normal as visualized. No acute sinusitis. Mastoid air cells: Opacification of some mastoid air cells bilaterally, particularly at the tips. Soft tissues: Normal. IMPRESSION: 1. Fluid in mastoid air cells bilaterally at the tips. 2. Otherwise negative noncontrast head CT. Thank you for allowing us to participate in the care of your patient. Dictated and Authenticated by: Devaughn Gandhi MD 11/19/2017 10:31 PM Eastern Time ([place] & [place]) DW Dr Warren PMD. Pt to be hospitalize for febrile illness. After panculture, initial dose of daptomycin given due to recent history of bacteremia. Dr Joyce for ID consult and Dr Pinto for Nephrology consult. DW family findings and plan of care. Scribe Attestation: Documented by Juvenal Diaz, acting as a scribe for Elaine Katz MD. Provider Scribe Attestation: All medical record entries made by the Scribe were at my direction and personally dictated by me. I have reviewed the chart and agree that the record accurately reflects my personal performance of the history, physical exam, medical decision making, and the department course for this patient. I have also personally directed, reviewed, and agree with the discharge instructions and disposition. Disposition - Clinical Impression Clinical Impression: Renal failure, Fever in adult Counseled Patient/Family Regarding: Studies Performed, Diagnosis - Disposition Disposition Time: 22:00 Condition: FAIR - Pt Status Changed To: Hospital Disposition Of: Inpatient - Admit Certification Admit to Inpatient:: After my assessment, the patient will require hospitalization for at least two midnights. This is because of the severity of symptoms shown, intensity of services needed, and/or the medical risk in this patient being treated as an outpatient. - POA Present On Arrival: Pressure Ulcer
[2017-11-19 22:23] LABS: BASOPHIL 1 % (0-2); EOSINOPHIL 2 % (0-7); MONOCYTE 18 % (0-10); PLATELET ESTIMATE NORMAL (NORMAL)
[2017-11-20] MEDS ORDERED: VIT B COMPLEX AND C PO SCH (09:00)
[2017-11-20] MEDS ORDERED: SILVER SULFADIAZINE 1% TP SCH (09:00)
[2017-11-20] MEDS ORDERED: FOLIC ACID PO SCH (09:00)
--- NOTE | 2017-11-20 10:11 | RAD ---
HISTORY: fever ams COMPARISON: Chest radiograph dated 11/08/2017. FINDINGS: LUNGS: No active pulmonary disease. PLEURA: No significant pleural effusion identified, no pneumothorax apparent. CARDIOVASCULAR: Cardiomediastinal silhouette stably enlarged. OSSEOUS STRUCTURES: Unchanged. VISUALIZED UPPER ABDOMEN: Normal. OTHER FINDINGS: Left internal jugular access catheter redemonstrated. Right axillosubclavian region vascular stents redemonstrated. IMPRESSION: No active disease.
--- NOTE | 2017-11-20 10:21 | CT ---
PROCEDURE: CT HEAD WITHOUT CONTRAST. HISTORY: altered mental status COMPARISON: CT head dated 01/29/2017. TECHNIQUE: Axial computed tomography images were obtained through the head/brain without intravenous contrast. Radiation dose: Total exam DLP = 856.9 mGy-cm. This CT exam was performed using one or more of the following dose reduction techniques: Automated exposure control, adjustment of the mA and/or kV according to patient size, and/or use of iterative reconstruction technique. FINDINGS: HEMORRHAGE: No intracranial hemorrhage. BRAIN: No mass effect or edema. No atrophy or chronic microvascular ischemic changes. VENTRICLES: Unremarkable. No hydrocephalus. CALVARIUM: Unremarkable. PARANASAL SINUSES: Unremarkable as visualized. No significant inflammatory changes. MASTOID AIR CELLS: Trace opacification of the mastoid air cells. OTHER FINDINGS: None. IMPRESSION: No acute intracranial pathology.
--- NOTE | 2017-11-20 10:48 | CP.PCM.CON ---
History of Present Illness - History of Present Illness History of Present Illness: Infectious Disease Consultation Note- asked to see this patietn at the request of for fever. HPI- Patient known to me from his recent admission. pt. was just d/c to [facility] a day prior to admission and apaprently was found to have fever there and was brought to ER for evaluation. Pt. is a 52 year old male with ESRD on HD with malfunctioning AV shunt who was brought to hospital last month for malfunctioning left arm AV shunt and had right femoral HD temp cath placed so that he could receive his HD and he also had Peritonela dialysis cath placed since he has been having multiple failed and malfunctioning HD grafts in past so that he can be started on PD soon. on that admission pt. was found to have only 1 of the 2 initial blood cx pos for coag neg tspah and he ahd received 2 days of daptomycin and later 4 days of IV teflaro but all other blood cx were negative and he was afebrile and with normal wbc and was felt to be contaminant. TTE- no vegetations as per report read by mechanical technician. pt. now denies any fever but c/o joint pain specially in right wrist and states was having trouble remembering some relatives . Review of Systems - Review of Systems Review of Systems: ROS- had fever on admission but he denies any chills, denies any MICHAEL, denies any cough or sob, denies any chest pain, denies any nausea or vomiting, denies any abd. pain, denies any diarrhea c/o joint and bone pain specially in right wrist and states has been having slight trouble recognizing some relatives . Past Patient History - Infectious Disease Hx of Infectious Diseases: None - Tetanus Immunizations Tetanus Immunization: Unknown - Past Medical History & Family History Past Medical History?: Yes - Past Social History Smoking Status: Never Smoked - CARDIAC Hx Atrial Fibrillation: Yes Hx Cardia Arrhythmia: Yes Hx Congestive Heart Failure: No Hx Hypercholesterolemia: Yes Hx Hypertension: Yes Hx Peripheral Edema: Yes - PULMONARY Hx Sleep Apnea: Yes - NEUROLOGICAL Hx Neurological Disorder: No - HEENT Hx HEENT Problems: No - RENAL Hx Chronic Kidney Disease: Yes Hx Kidney Stones: No - ENDOCRINE/METABOLIC Hx Hypothyroidism: No - HEMATOLOGICAL/ONCOLOGICAL Hx Anemia: Yes - INTEGUMENTARY Hx Dermatological Problems: No - MUSCULOSKELETAL/RHEUMATOLOGICAL Hx Arthritis: Yes Hx Fractures: No Hx Osteoporosis: Yes - GASTROINTESTINAL Hx Gastritis: Yes - GENITOURINARY/GYNECOLOGICAL Hx Genitourinary Disorders: No - PSYCHIATRIC Hx Anxiety: Yes Hx Depression: Yes - SURGICAL HISTORY Hx Appendectomy: Yes - ANESTHESIA Hx Anesthesia: Yes Hx Anesthesia Reactions: Yes (AWAKE DURING THE SURGERY) Hx Malignant Hyperthermia: No Meds Allergies/Adverse Reactions: Allergies Allergy/AdvReac Type Severity Reaction Status Date / Time aspirin Allergy RASH Verified 11/08/17 15:24 ketorolac [From Toradol] Allergy RASH Verified 11/08/17 15:24 propoxyphene napsylate Allergy RASH Verified 11/08/17 15:24 [From Darvocet-N] vancomycin AdvReac RASH Verified 11/08/17 15:24 - Medications Medications: Current Medications Alprazolam (Xanax) 0.5 mg PO Q8 PRN PRN Reason: Anxiety Apixaban (Eliquis) 2.5 mg PO Q12 [facility] PRN Reason: Protocol Atorvastatin Calcium (Lipitor) 40 mg PO HS [facility] Calcium Acetate (Phoslo) 667 mg PO TID [facility] Cholecalciferol (Vitamin D) 2,000 intlu PO DAILY [facility] Digoxin (Digoxin) 0.125 mg PO MWF [facility] Diphenoxylate HCl/Atropine (Lomotil 0.025-2.5 Mg Tablet) 2 tab PO Q8 PRN PRN Reason: Diarrhea Gabapentin (Neurontin) 300 mg PO DAILY [facility] Home Med (Acetaminophen/Oxycodone Hydr [Percocet 10/325 Mg Tab]) 1 tab PO Q6H PRN PRN Reason: Pain, severe (8-10) Home Med (Febuxostat [Uloric]) 40 mg PO DAILY [facility] Home Med (Gabapentin Enacarbil [Horizant]) 600 mg PO HS [facility] Home Med (Linaclotide [Linzess]) 145 mcg PO DAILY PRN PRN Reason: Irritable bowel symptoms Home Med (Insulin Aspart, Recombinant [Novolog]) 10 - 15 unit SC AC [facility] Insulin Detemir (Levemir) 40 units SC HS [facility] Lactulose (Enulose) 10 gm PO HS PRN PRN Reason: Constipation Megestrol Acetate (Megace) 600 mg PO DAILY [facility] Minoxidil (Minoxidil) 2.5 mg PO Q12 [facility] [id number] Ethyl Esters (Lovaza) 1 gm PO BID [facility] Pantoprazole Sodium (Protonix Ec Tab) 40 mg PO DAILY [facility] Paroxetine HCl (Paxil) 10 mg PO DAILY [facility] Sevelamer HCl (Renagel) 1,600 mg PO TID [facility] Silver Sulfadiazine (Silvadene 1% 50 Gm) 1 applic TOP BID [facility] Tamsulosin HCl (Flomax) 0.4 mg PO HS [facility] Ticagrelor (Brilinta) 90 mg PO Q12 [facility] Verapamil HCl (Calan Sr Capsule) 120 mg PO DAILY [facility] Vitamin B Complex/Vit C/Folic Acid (Nephro-Garcia) 1 tab PO DAILY [facility] Physical Exam - Constitutional Appears: No Acute Distress - Head Exam Head Exam: ATRAUMATIC - ENT Exam ENT Exam: Normal Oropharynx - Neck Exam Neck exam: Positive for: Full Rom - Respiratory Exam Respiratory Exam: Clear to Auscultation Bilateral, NORMAL BREATHING PATTERN - Cardiovascular Exam Cardiovascular Exam: RRR, +S1, +S2 - GI/Abdominal Exam GI & Abdominal Exam: Normal Bowel Sounds, Soft Additional comments: NT, ND PD dialysis catheter in palce with karina half soaked with old dried blood, no erythema - Extremities Exam Additional comments: no edema b/l LE right wrist no edema, no erythema has tenderness with flexion - Neurological Exam Neurological exam: Alert, Oriented x3 Results - Vital Signs Recent Vital Signs: Last Vital Signs Temp 98.9 F 11/20/17 07:17 Pulse 79 11/20/17 07:17 Resp 16 11/20/17 07:17 BP 131/64 11/20/17 07:17 Pulse Ox 98 11/20/17 07:17 - Labs Result Diagrams: 11/19/17 20:19 11/19/17 20:19 Labs: Laboratory Results - last 24 hr 11/19/17 11/19/17 11/19/17 08:50 19:54 20:06 WBC RBC Hgb Hct MCV MCH MCHC RDW Plt Count MPV Neut % (Auto) Lymph % (Auto) [place] % (Auto) Eos % (Auto) Baso % (Auto) Neut # (Auto) Lymph # (Auto) [place] # (Auto) Eos # (Auto) Baso # (Auto) Neutrophils % (Manual) Band Neutrophils % Lymphocytes % (Manual) Monocytes % (Manual) Eosinophils % (Manual) Basophils % (Manual) Platelet Estimate PT INR APTT pO2 48 VBG pH 7.39 VBG pCO2 48 VBG HCO3 27.2 VBG Total CO2 30.6 H VBG O2 Sat (Calc) 87.4 H VBG Base Excess 3.4 H VBG Potassium 5.6 H Sodium 133.0 Chloride 98.0 Glucose 102 Lactate 0.8 FiO2 21.0 Potassium 5.5 H Carbon Dioxide Anion Gap BUN Creatinine Est GFR ( Amer) Est GFR (Non-Af Amer) POC Glucose (mg/dL) 100 Random Glucose Calcium Phosphorus Magnesium Total Bilirubin AST ALT Alkaline Phosphatase Troponin I Total Protein Albumin Globulin Albumin/Globulin Ratio Venous Blood Potassium 5.6 H Blood Type Antibody Screen BBK History Checked 11/19/17 11/19/17 11/19/17 20:19 20:19 20:19 WBC 7.3 RBC 4.25 L Hgb 11.2 L Hct 34.5 L MCV 81.2 MCH 26.4 L MCHC 32.6 L RDW 16.1 H Plt Count 218 MPV 7.4 Neut % (Auto) 58.9 Lymph % (Auto) 14.6 L [place] % (Auto) 21.5 H Eos % (Auto) 4.3 H Baso % (Auto) 0.7 Neut # (Auto) 4.3 Lymph # (Auto) 1.1 [place] # (Auto) 1.6 H Eos # (Auto) 0.3 Baso # (Auto) 0.0 Neutrophils % (Manual) 62 Band Neutrophils % 2 Lymphocytes % (Manual) 15 L Monocytes % (Manual) 18 H Eosinophils % (Manual) 2 Basophils % (Manual) 1 Platelet Estimate Normal PT 13.7 H INR 1.2 APTT 37.1 pO2 VBG pH VBG pCO2 VBG HCO3 VBG Total CO2 VBG O2 Sat (Calc) VBG Base Excess VBG Potassium Sodium 136 Chloride 97 L Glucose Lactate FiO2 Potassium 6.0 H Carbon Dioxide 24 Anion Gap 21 H BUN 36 H Creatinine 11.6 H* Est GFR ( Amer) 6 Est GFR (Non-Af Amer) 5 POC Glucose (mg/dL) Random Glucose 97 Calcium 9.7 Phosphorus 6.6 H Magnesium 2.0 Total Bilirubin 1.3 AST 55 ALT 31 Alkaline Phosphatase 194 H D Troponin I 0.0530 Total Protein 7.8 Albumin 4.2 Globulin 3.6 Albumin/Globulin Ratio 1.2 Venous Blood Potassium Blood Type Antibody Screen BBK History Checked 11/19/17 11/20/17 11/20/17 20:41 07:02 10:32 WBC RBC Hgb Hct MCV MCH MCHC RDW Plt Count MPV Neut % (Auto) Lymph % (Auto) [place] % (Auto) Eos % (Auto) Baso % (Auto) Neut # (Auto) Lymph # (Auto) [place] # (Auto) Eos # (Auto) Baso # (Auto) Neutrophils % (Manual) Band Neutrophils % Lymphocytes % (Manual) Monocytes % (Manual) Eosinophils % (Manual) Basophils % (Manual) Platelet Estimate PT INR APTT pO2 VBG pH VBG pCO2 VBG HCO3 VBG Total CO2 VBG O2 Sat (Calc) VBG Base Excess VBG Potassium Sodium Chloride Glucose Lactate FiO2 Potassium Carbon Dioxide Anion Gap BUN Creatinine Est GFR ( Amer) Est GFR (Non-Af Amer) POC Glucose (mg/dL) 88 88 Random Glucose Calcium Phosphorus Magnesium Total Bilirubin AST ALT Alkaline Phosphatase Troponin I Total Protein Albumin Globulin Albumin/Globulin Ratio Venous Blood Potassium Blood Type O POSITIVE Antibody Screen Negative BBK History Checked Patient has bt Microbiology 11/20/17 10:30 Blood-Thru Central Line Blood Culture - Preliminary NO GROWTH AFTER 24 HOURS 11/20/17 10:00 Urine Urine Culture - Final No Growth (<1,000 CFU/ML) 11/19/17 23:10 Blood Blood Culture - Preliminary NO GROWTH AFTER 24 HOURS 11/19/17 23:10 Blood Blood Culture - Preliminary NO GROWTH AFTER 24 HOURS 11/19/17 20:19 Blood Blood Culture - Preliminary NO GROWTH AFTER 24 HOURS Accession No. : [id number] Patient Name / ID : KYM Brooke / [id number] Exam Date : 11/19/2017 22:10:08 ( Approved ) Study Comment : Sex / Age : M / 52Y Creator : Bishnu Reyes MD Dictator : Bihsnu Reyes MD Senior Java Developer : Elementary Instructional Coach : Bishnu Reyes MD Approver2 : Report Date : 11/20/2017 10:20:12 My Comment : PROCEDURE: CT HEAD WITHOUT CONTRAST. HISTORY: altered mental status COMPARISON: CT head dated 01/29/2017. TECHNIQUE: Axial computed tomography images were obtained through the head/brain without intravenous contrast. Radiation dose: Total exam DLP = 856.9 mGy-cm. This CT exam was performed using one or more of the following dose reduction techniques: Automated exposure control, adjustment of the mA and/or kV according to patient size, and/or use of iterative reconstruction technique. FINDINGS: HEMORRHAGE: No intracranial hemorrhage. BRAIN: No mass effect or edema. No atrophy or chronic microvascular ischemic changes. VENTRICLES: Unremarkable. No hydrocephalus. CALVARIUM: Unremarkable. PARANASAL SINUSES: Unremarkable as visualized. No significant inflammatory changes. MASTOID AIR CELLS: Trace opacification of the mastoid air cells. OTHER FINDINGS: None. IMPRESSION: No acute intracranial pathology. Accession No. : [id number] Patient Name / ID : KYM Brooke / [id number] Exam Date : 11/19/2017 21:32:18 ( Approved ) Study Comment : Sex / Age : M / 52Y Creator : Bishnu Reyes MD Dictator : Bishnu Reyes MD Senior Java Developer : Elementary Instructional Coach : Bishnu Reyes MD Approver2 : Report Date : 11/20/2017 10:10:02 My Comment : HISTORY: fever ams COMPARISON: Chest radiograph dated 11/08/2017. FINDINGS: LUNGS: No active pulmonary disease. PLEURA: No significant pleural effusion identified, no pneumothorax apparent. CARDIOVASCULAR: Cardiomediastinal silhouette stably enlarged. OSSEOUS STRUCTURES: Unchanged. VISUALIZED UPPER ABDOMEN: Normal. OTHER FINDINGS: Left internal jugular access catheter redemonstrated. Right axillosubclavian region vascular stents redemonstrated. IMPRESSION: No active disease. Assessment & Plan (1) Fever in adult Status: Acute (2) AV shunt malfunction Status: Acute - Assessment and Plan (Free Text) Assessment: A/P- 52 year old male with ESRD oN HD who was recently d/c to [facility] readmitted with low garde fever and AMS. pt's fever was very low garde 99.9. normal wbc count AMS has resolved now. Brain CT - as per report negative CXR- no active disease as per report. source of low grade fever unclear at this time, perhaps rhumatologic instead of Infectious etiology specially in light of joint pains. also PD catheter site advise to hav dressing changed and area cleaned. plan- check 2 blood cx . one from HD cath and one peripherally. advise to resume teflaro ( HD Dose) empirically pending further results. advise to check xray of the right wrist . All above d/w patient and he verbalizes full understanding of all above. Thank you for allowing me to take part in the care of this patient.
[2017-11-20] MEDS ORDERED: Oxycodone/Acetaminophen 5/325 mg Tab PO ONE (16:23)
[2017-11-20] MEDS ORDERED: Sod Polystyrene Sulf 15 gm/60 ml Susp PO ONE (17:04)
[2017-11-20] MEDS: Verapamil SR 120 MG CApsule PO SCH (17:32)
[2017-11-20] MEDS: Insulin Lispro (humaLOG) 100 Units/ml Inj SC SCH (17:32)
[2017-11-20] MEDS: Silver Sulfadiazine 1% CREAM (50 gm) TOP SCH (17:33)
[2017-11-20] MEDS: Cholecalciferol 1,000 INTLU TAB PO SCH (17:33)
[2017-11-20] MEDS: Omega-3-Acid Ethyl Esters 1 GM Cap PO SCH (17:34)
[2017-11-20] MEDS: Megestrol Acetate 40 mg/ml Cup PO SCH (17:34)
[2017-11-20] MEDS: Calcium Acetate 667 MG Capsule PO SCH (17:36)
--- NOTE | 2017-11-20 18:06 | CARD ---
APPROVED REPORT EKG Measurement Heart [id number] CT [id number] <Conclusion> Sinus rhythm with 1st degree AV block Left axis deviation Right bundle branch block Abnormal ECG
[2017-11-20] MEDS ORDERED: Patient's Own Med (Insulin Detemir [Levemir] 40 units) SQ SCH (22:00)
[2017-11-20] MEDS ORDERED: GABAPENTIN ENACARBIL 600 MG PO SCH (22:00)
--- NOTE | 2017-11-20 22:43 | CP.PCM.CON ---
History of Present Illness - History of Present Illness History of Present Illness: REASONS FOR CONSULTATION : ESRD ON HD M W F HYPERKALEMIA .. K 6.0 S/P PD CATH INSERTION / LACK OF VASCULAR ACCESS FOR HD OLD RECORDS WELL CURRENT CHART ALL REVIEWED .. PT WAS D/C TO A NH YESTERDAY ..CAME BACK WITHIN 24 H Chief Complaint (Nursing): Altered Mental Status Chief Complaint (Provider): Weakness Onset/Duration Of Symptoms: Days (x1) Additional Complaint(s): Akash Appiah is a 52 y/o male with past medical history of anemia, atrial fibrillation, diabetes who presents to the ED complaining of weakness ongoing for x1 day. Patient's mother reports [facility] was placed in [facility] after recently getting peritoneal dialysis cath that was placed while he was admitted to the hospital. According to the mother, patient has not eaten all day, has been excessively sleepy, has had no appetite, and has been feeling warm. Patient also reports that all his bones hurt. He denies any cough, vomiting, diarrhea, or abdominal pain. PMD: Mildred Warren Past Medical History Reviewed: Historical Data, Nursing Documentation, Vital Signs Vital Signs: Last Vital Signs Temp 97.6 F 11/20/17 15:53 Pulse 74 11/20/17 15:53 Resp 19 11/20/17 15:53 BP 156/90 H 11/20/17 15:53 Pulse Ox 95 11/20/17 15:53 - Medical History PMH: Anemia, Anxiety, Arthritis, Atrial Fibrillation, Cardia Arrhythmia, Depression, Diabetes (type II), Gastritis, GERD, HTN, Hypercholesterolemia, Osteoporosis, Peripheral Edema, End Stage Renal Disease, Chronic Kidney Disease , Sleep Apnea Denies: CHF, Fractures, HIV, Hypothyroidism, Kidney Stones - Surgical History Surgical History: Appendectomy, Endoscopy - Family History Family History: States: Unknown Family Hx, Hypertension - Home Medications Home Medications: Ambulatory Orders Medication Instructions Recorded Acetaminophen/Oxycodone Hydr 1 tab PO Q6H PRN 05/24/16 [Percocet 10/325 mg Tab] Febuxostat [Uloric] 40 mg PO DAILY 05/24/16 Apixaban [Eliquis] 2.5 mg PO Q12 12/24/16 Alprazolam [Xanax] 0.5 mg PO Q8 PRN 08/18/17 Folic Acid/Vit B Complex and C 1 tab PO DAILY 08/18/17 [Nephro-Garcia Tablet] Insulin Detemir [Levemir] 40 units SQ HS 08/18/17 Atorvastatin [Lipitor] 40 mg PO HS #30 tab 08/21/17 Digoxin [Digitek] 125 mcg PO MWF #30 tablet 08/21/17 Minoxidil 2.5 mg PO Q12 #30 tab 08/21/17 PARoxetine [Paxil] 10 mg PO DAILY #30 tab 08/21/17 Ticagrelor [Brilinta] 90 mg PO Q12 #60 tab 08/21/17 Verapamil HCl [Verapamil Sr] 120 mg PO DAILY #30 cap24h.pel 08/21/17 Atropine/Diphenoxylate [Lomotil 2 tab PO Q8 PRN 11/08/17 0.025-2.5 mg tablet] Calcium Acetate [Phoslo] 667 mg PO TID 11/08/17 Gabapentin Enacarbil [Horizant] 600 mg PO HS 11/08/17 Insulin Aspart, Recombinant 10 - 15 unit SC AC 11/08/17 [Novolog] Megestrol Acetate [Megace] 15 ml PO DAILY 11/08/17 [id number] Ethyl Esters 1 GM 1 gm PO BID 11/08/17 [Lovaza] Cholecalciferol [Vitamin D 1000 IU] 2,000 intlu PO DAILY tab 11/18/17 Pantoprazole [Protonix EC Tab] 40 mg PO DAILY ect 11/18/17 Sevelamer [Renagel] 1,600 mg PO TID tab 11/18/17 Gabapentin [Neurontin] 300 mg PO DAILY 11/19/17 Lactulose [Enulose] 15 ml PO HS PRN 11/19/17 Linaclotide [Linzess] 145 mcg PO DAILY PRN 11/19/17 Silver Sulfadiazine 1% [Silver 1 applic TP BID 11/19/17 Sulfadiazine] Tamsulosin [Flomax] 0.4 mg PO HS 11/19/17 - Allergies Allergies/Adverse Reactions: Allergies Allergy/AdvReac Type Severity Reaction Status Date / Time aspirin Allergy RASH Verified 11/08/17 15:24 ketorolac [From Toradol] Allergy RASH Verified 11/08/17 15:24 propoxyphene napsylate Allergy RASH Verified 11/08/17 15:24 [From Darvocet-N] vancomycin AdvReac RASH Verified 11/08/17 15:24 Review of Systems ROS Statement: Except As Marked, All Systems Reviewed And Found Negative Constitutional: Positive for: Weakness, Other (feeling warm, loss of appetite, excessive sleepiness) Respiratory: Negative for: Cough Gastrointestinal: Negative for: Vomiting, Abdominal Pain, Diarrhea Past Patient History - Infectious Disease Hx of Infectious Diseases: None - Tetanus Immunizations Tetanus Immunization: Unknown - Past Medical History & Family History Past Medical History?: Yes - Past Social History Smoking Status: Never Smoked - CARDIAC Hx Atrial Fibrillation: Yes Hx Cardia Arrhythmia: Yes Hx Congestive Heart Failure: No Hx Hypercholesterolemia: Yes Hx Hypertension: Yes Hx Peripheral Edema: Yes - PULMONARY Hx Sleep Apnea: Yes - NEUROLOGICAL Hx Neurological Disorder: No - HEENT Hx HEENT Problems: No - RENAL Hx Chronic Kidney Disease: Yes Hx Kidney Stones: No - ENDOCRINE/METABOLIC Hx Hypothyroidism: No - HEMATOLOGICAL/ONCOLOGICAL Hx Anemia: Yes Hx Human Immunodeficiency Virus (HIV): No - INTEGUMENTARY Hx Dermatological Problems: No - MUSCULOSKELETAL/RHEUMATOLOGICAL Hx Falls: Yes - GASTROINTESTINAL Hx Gastritis: Yes - GENITOURINARY/GYNECOLOGICAL Hx Genitourinary Disorders: No - PSYCHIATRIC Hx Substance Use: No - SURGICAL HISTORY Hx Appendectomy: Yes - ANESTHESIA Hx Anesthesia: Yes Hx Anesthesia Reactions: Yes (AWAKE DURING THE SURGERY) Hx Malignant Hyperthermia: No Meds Allergies/Adverse Reactions: Allergies Allergy/AdvReac Type Severity Reaction Status Date / Time aspirin Allergy RASH Verified 11/08/17 15:24 ketorolac [From Toradol] Allergy RASH Verified 11/08/17 15:24 propoxyphene napsylate Allergy RASH Verified 11/08/17 15:24 [From Darvocet-N] vancomycin AdvReac RASH Verified 11/08/17 15:24 - Medications Medications: Current Medications Acetaminophen (Tylenol 325mg Tab) 650 mg PO Q6 PRN PRN Reason: Fever >100.4 F Acetaminophen (Tylenol 325mg Tab) 650 mg PO Q6 PRN PRN Reason: Pain, Mild (1-3) Alprazolam (Xanax) 0.5 mg PO Q8 PRN PRN Reason: Anxiety Apixaban (Eliquis) 2.5 mg PO Q12 [facility] PRN Reason: Protocol Atorvastatin Calcium (Lipitor) 40 mg PO HS [facility] Calcium Acetate (Phoslo) 667 mg PO TID [facility] Last Admin: 11/20/17 17:36 Dose: Not Given Cholecalciferol (Vitamin D) 2,000 intlu PO DAILY [facility] Last Admin: 11/20/17 17:33 Dose: 2,000 intlu Digoxin (Digoxin) 0.125 mg PO [facility] Diphenoxylate HCl/Atropine (Lomotil 0.025-2.5 Mg Tablet) 2 tab PO Q8 PRN PRN Reason: Diarrhea Gabapentin (Neurontin) 300 mg PO DAILY [facility] Home Med (Acetaminophen/Oxycodone Hydr [Percocet 10/325 Mg Tab]) 1 tab PO Q6H PRN PRN Reason: Pain, severe (8-10) Home Med (Febuxostat [Uloric]) 40 mg PO DAILY [facility] Home Med (Gabapentin Enacarbil [Horizant]) 600 mg PO HS [facility] Home Med (Linaclotide [Linzess]) 145 mcg PO DAILY PRN PRN Reason: Irritable bowel symptoms Ceftaroline Fosamil 200 mg/ (Sodium Chloride) 100 mls @ 100 mls/hr IVPB Q12 [facility] PRN Reason: Protocol Last Admin: 11/20/17 21:30 Dose: 100 mls/hr Insulin Detemir (Levemir) 40 units SC HS [facility] Insulin Human Lispro (Humalog) 10 - 15 units SC AC [facility] Last Admin: 11/20/17 17:32 Dose: Not Given Lactulose (Enulose) 10 gm PO PRN PRN Reason: Constipation Megestrol Acetate (Megace) 600 mg PO DAILY [facility] Last Admin: 11/20/17 17:34 Dose: 600 mg Minoxidil (Minoxidil) 2.5 mg PO Q12 [facility] [id number] Ethyl Esters (Lovaza) 1 gm PO BID [facility] Last Admin: 11/20/17 17:34 Dose: 1 gm Pantoprazole Sodium (Protonix Ec Tab) 40 mg PO DAILY [facility] Paroxetine HCl (Paxil) 10 mg PO DAILY [facility] Last Admin: 11/20/17 17:33 Dose: 10 mg Sevelamer HCl (Renagel) 1,600 mg PO TID [facility] Last Admin: 11/20/17 17:32 Dose: 1,600 mg Silver Sulfadiazine (Silvadene 1% 50 Gm) 1 applic TOP BID [facility] Last Admin: 11/20/17 17:33 Dose: Not Given Tamsulosin HCl (Flomax) 0.4 mg PO HS [facility] Ticagrelor (Brilinta) 90 mg PO Q12 [facility] Verapamil HCl (Calan Sr Capsule) 120 mg PO DAILY [facility] Last Admin: 11/20/17 17:32 Dose: 120 mg Vitamin B Complex/Vit C/Folic Acid (Nephro-Garcia) 1 tab PO DAILY [facility] Results - Vital Signs Recent Vital Signs: Last Vital Signs Temp 97.6 F 11/20/17 15:53 Pulse 74 11/20/17 15:53 Resp 19 11/20/17 15:53 BP 156/90 H 11/20/17 15:53 Pulse Ox 100 11/20/17 16:45 - Labs Result Diagrams: 11/19/17 20:19 11/19/17 20:19 Labs: Laboratory Results - last 24 hr 11/19/17 11/20/17 11/20/17 20:41 07:02 10:32 POC Glucose (mg/dL) 88 88 Blood Type O POSITIVE Antibody Screen Negative BBK History Checked Patient has bt 11/20/17 11/20/17 11/20/17 13:45 14:34 16:18 POC Glucose (mg/dL) 120 H 107 89 Blood Type Antibody Screen BBK History Checked 11/20/17 11/20/17 18:52 21:10 POC Glucose (mg/dL) 128 H 163 H Blood Type Antibody Screen BBK History Checked Assessment & Plan - Assessment and Plan (Free Text) Assessment: ESRD .. WILL SCHEDULE HD ON HYPER KALEMIA .. K 6.0 ANEMIA OF CKD .. H/H GOOD MMP P : WAS GIVEN KEYAXALATE PO HD IN AM AND THEN F C/O CURRENT MEDS C/O RENAL DIET - Date & Time Date: 11/20/17 Time: 17:00
[2017-11-20] MEDS: Insulin Detemir 100 Units/ml Inj SC SCH (22:52)
--- NOTE | 2017-11-21 07:19 | HP ---
HISTORY OF PRESENT ILLNESS: This is a 52-year-old male with history of multiple medical problems and surgical procedures, was in subacute rehabilitation after an acute care admission here in the hospital. The patient was noticed to have lethargy with change of his mental status and confusion. The patient was brought to the emergency room for evaluation and he was found to be confused and lethargic. The patient has only low-grade fever with temperature of 99.7. The patient was evaluated in the emergency room and he was admitted for further management. Previously, the patient was treated for bacteremia during his last hospitalization and he had new peritoneal catheter placed as he would like to be started on peritoneal dialysis. Currently, the patient has Shiley catheter on the right femoral that will be used. The patient did not give a history at the time of this examination. ALLERGIES: THERE IS A DOCUMENTED ALLERGY FOR ASPIRIN, KETOROLAC, AND VANCOMYCIN. PAST MEDICAL HISTORY: Hypertension; type 2 diabetes mellitus; end-stage renal disease, currently on hemodialysis; coronary artery disease, status post PCI; paroxysmal atrial fibrillation, on anticoagulant. SOCIAL HISTORY: No history of smoking, EtOH, or substance abuse. FAMILY HISTORY: Noncontributory. REVIEW OF SYSTEMS: Was not well obtained. PHYSICAL EXAMINATION: GENERAL: The patient is in bed, not in any cardiopulmonary distress at the time of this examination. VITAL SIGNS: His blood pressure 150/90. HEENT: Normal-appearing mucosa of the conjunctivae. NECK: Supple. No JVD. No carotid bruit. No lymph nodes. No thyromegaly. CHEST AND LUNGS: Bilateral symmetrical expansion. Good air exchange. No rales. No rhonchi. CARDIOVASCULAR SYSTEM: PMI not localized. S1, S2. No additional sounds. ABDOMEN: Peritoneal dialysis in place and no tenderness. No organomegaly. No masses. EXTREMITIES: No cyanosis, no clubbing. Right metatarsal amputation. 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 No neurological deficit could be appreciated. ASSESSMENT: 1. Change of mental status with previous history of bacteremia, rule out sepsis. 2. End-stage renal disease, on hemodialysis. 3. Coronary artery disease. 4. Hypertension. 5. Paroxysmal atrial fibrillation. PLAN: Continue current medications and we will hold all pain medicines as it might be the culprit for this change of mental status. We will call Nephrology consult and ID consult. Review the patient's home medications. Neuro check every 4 hours. [facility] MD Kelvin
[2017-11-21] MEDS: Silver Sulfadiazine 1% CREAM (50 gm) TOP SCH ×2 (09:00→18:26)
[2017-11-21] MEDS: Megestrol Acetate 40 mg/ml Cup PO SCH (09:58)
[2017-11-21] MEDS: Multivitamin Vitamin B Complex (Nephro-Vite) Tab PO SCH (09:58)
[2017-11-21] MEDS: Cholecalciferol 1,000 INTLU TAB PO SCH (10:00)
[2017-11-21] MEDS: Verapamil SR 120 MG CApsule PO SCH (10:00)
[2017-11-21] MEDS: Pantoprazole 40 mg EC Tab PO SCH (10:01)
[2017-11-21] MEDS: Omega-3-Acid Ethyl Esters 1 GM Cap PO SCH ×2 (10:02→18:24)
[2017-11-21] MEDS: Insulin Lispro (humaLOG) 100 Units/ml Inj SC SCH ×3 (10:03→18:23)
[2017-11-21] MEDS: Digoxin 125 mcg (0.125 mg) Tab PO SCH (10:03)
[2017-11-21] MEDS: Calcium Acetate 667 MG Capsule PO SCH ×3 (10:04→18:24)
[2017-11-21] MEDS ORDERED: Lactulose 10 gm/15 ml Syrup PO PRN (11:45)
--- NOTE | 2017-11-21 13:36 | CP.PCM.CON ---
History of Present Illness - History of Present Illness History of Present Illness: 52 yr old male with a change in mental status since he was discharged last week from rehab. Family says he is more forgetful and patient states that he is having difficulty finding words and recognizing people. OF note, his blood sugar has been consistently low and he had a permanent portacath placed last . He denies nausea, vomiting, diarrhea, or headache. Per chart review, patient had an AV shunt infection and had to have it replaced for this reason, with a fever. PMH/PSH: as above. Has been getting dialysis for manyyears. FH/SH: no tobacco, no etoh. no ivda. ALL; nkda. on exam: aaoxperson and place. PERRL. Cannot tell me the date but knows the season. He is able to identify his parents, but struggles with their names. Follows commands well. speech fluent. Can name and repeat and follow commands well. LEft arm is painful, but good strength in all other extremities. +2 dtr ul and ll bl. Toes downgoing. No clonus. Gait not tested. SEnsory exam normal. Past Patient History - Infectious Disease Hx of Infectious Diseases: None - Tetanus Immunizations Tetanus Immunization: Unknown - Past Medical History & Family History Past Medical History?: Yes - Past Social History Smoking Status: Never Smoked - CARDIAC Hx Atrial Fibrillation: Yes Hx Cardia Arrhythmia: Yes Hx Congestive Heart Failure: No Hx Hypercholesterolemia: Yes Hx Hypertension: Yes Hx Peripheral Edema: Yes - PULMONARY Hx Sleep Apnea: Yes - NEUROLOGICAL Hx Neurological Disorder: No - HEENT Hx HEENT Problems: No - RENAL Hx Chronic Kidney Disease: Yes Hx Kidney Stones: No - ENDOCRINE/METABOLIC Hx Hypothyroidism: No - HEMATOLOGICAL/ONCOLOGICAL Hx Anemia: Yes Hx Human Immunodeficiency Virus (HIV): No - INTEGUMENTARY Hx Dermatological Problems: No - MUSCULOSKELETAL/RHEUMATOLOGICAL Hx Falls: Yes - GASTROINTESTINAL Hx Gastritis: Yes - GENITOURINARY/GYNECOLOGICAL Hx Genitourinary Disorders: No - PSYCHIATRIC Hx Substance Use: No - SURGICAL HISTORY Hx Appendectomy: Yes - ANESTHESIA Hx Anesthesia: Yes Hx Anesthesia Reactions: Yes (AWAKE DURING THE SURGERY) Hx Malignant Hyperthermia: No Meds Allergies/Adverse Reactions: Allergies Allergy/AdvReac Type Severity Reaction Status Date / Time aspirin Allergy RASH Verified 11/08/17 15:24 ketorolac [From Toradol] Allergy RASH Verified 11/08/17 15:24 propoxyphene napsylate Allergy RASH Verified 11/08/17 15:24 [From Ravin-N] vancomycin AdvReac RASH Verified 11/08/17 15:24 - Medications Medications: Current Medications Acetaminophen (Tylenol 325mg Tab) 650 mg PO Q6 PRN PRN Reason: Fever >100.4 F Acetaminophen (Tylenol 325mg Tab) 650 mg PO Q6 PRN PRN Reason: Pain, Mild (1-3) Last Admin: 11/21/17 10:12 Dose: 650 mg Alprazolam (Xanax) 0.5 mg PO Q8 PRN PRN Reason: Anxiety Apixaban (Eliquis) 2.5 mg PO Q12 [facility] PRN Reason: Protocol Last Admin: 11/21/17 10:00 Dose: 2.5 mg Atorvastatin Calcium (Lipitor) 40 mg PO [facility] Last Admin: 11/20/17 22:51 Dose: 40 mg Calcium Acetate (Phoslo) 667 mg PO TID [facility] Last Admin: 11/21/17 12:31 Dose: 667 mg Cholecalciferol (Vitamin D) 2,000 intlu PO DAILY [facility] Last Admin: 11/21/17 10:00 Dose: 2,000 intlu Digoxin (Digoxin) 0.125 mg PO [facility] Last Admin: 11/21/17 10:03 Dose: 0.125 mg Diphenoxylate HCl/Atropine (Lomotil 0.025-2.5 Mg Tablet) 2 tab PO Q8 PRN PRN Reason: Diarrhea Gabapentin (Neurontin) 300 mg PO DAILY [facility] Last Admin: 11/21/17 10:02 Dose: 300 mg Home Med (Acetaminophen/Oxycodone Hydr [Percocet 10/325 Mg Tab]) 1 tab PO Q6H PRN PRN Reason: Pain, severe (8-10) Home Med (Febuxostat [Uloric]) 40 mg PO DAILY [facility] Home Med (Gabapentin Enacarbil [Horizant]) 600 mg PO [facility] Home Med (Linaclotide [Linzess]) 145 mcg PO DAILY PRN PRN Reason: Irritable bowel symptoms Ceftaroline Fosamil 200 mg/ (Sodium Chloride) 100 mls @ 100 mls/hr IVPB Q12 [facility] PRN Reason: Protocol Last Admin: 11/21/17 12:33 Dose: 100 mls/hr Insulin Detemir (Levemir) 40 units SC HS [facility] Last Admin: 11/20/17 22:52 Dose: 40 units Insulin Human Lispro (Humalog) 10 - 15 units SC AC [facility] Last Admin: 11/21/17 12:30 Dose: Not Given Lactulose (Enulose) 10 gm PO HS PRN PRN Reason: Constipation Megestrol Acetate (Megace) 600 mg PO DAILY [facility] Last Admin: 11/21/17 09:58 Dose: 600 mg Minoxidil (Minoxidil) 2.5 mg PO Q12 [facility] Last Admin: 11/21/17 09:58 Dose: 2.5 mg [id number] Ethyl Esters (Lovaza) 1 gm PO BID [facility] Last Admin: 11/21/17 10:02 Dose: 1 gm Pantoprazole Sodium (Protonix Ec Tab) 40 mg PO DAILY [facility] Last Admin: 11/21/17 10:01 Dose: 40 mg Paroxetine HCl (Paxil) 10 mg PO DAILY [facility] Last Admin: 11/21/17 09:58 Dose: 10 mg Sevelamer HCl (Renagel) 1,600 mg PO TID [facility] Last Admin: 11/21/17 12:32 Dose: 1,600 mg Silver Sulfadiazine (Silvadene 1% 50 Gm) 1 applic TOP BID [facility] Last Admin: 11/20/17 17:33 Dose: Not Given Tamsulosin HCl (Flomax) 0.4 mg PO HS [facility] Last Admin: 11/20/17 21:30 Dose: 0.4 mg Ticagrelor (Brilinta) 90 mg PO Q12 [facility] Last Admin: 11/21/17 09:57 Dose: 90 mg Verapamil HCl (Calan Sr Capsule) 120 mg PO DAILY [facility] Last Admin: 11/21/17 10:00 Dose: 120 mg Vitamin B Complex/Vit C/Folic Acid (Nephro-Garcia) 1 tab PO DAILY [facility] Last Admin: 11/21/17 09:58 Dose: 1 tab Results - Vital Signs Recent Vital Signs: Last Vital Signs Temp 98 F 11/21/17 08:31 Pulse 78 11/21/17 08:31 Resp 18 11/21/17 08:31 BP 168/73 H 11/21/17 08:31 Pulse Ox 95 11/21/17 08:31 - Labs Result Diagrams: 11/19/17 20:19 11/19/17 20:19 Labs: Laboratory Results - last 24 hr 11/20/17 11/20/17 11/20/17 13:45 14:34 16:18 POC Glucose (mg/dL) 120 H 107 89 11/20/17 11/20/17 11/21/17 18:52 21:10 05:47 POC Glucose (mg/dL) 128 H 163 H 115 H 11/21/17 11:27 POC Glucose (mg/dL) 131 H Assessment & Plan - Assessment and Plan (Free Text) Assessment: 52 yr old male with altered mental status that is not likely to bestroke, however, he may have an intracerebral process. There are signs of metabolic encephalopathy, for which we can check ammonia and blood cultures for infection. Plan: 1. Blood cultures 2. MRI brain without contrast 3. Ammonia level for hepatic encephalopathy. Thank you dr. ba
--- NOTE | 2017-11-21 16:30 | RAD ---
PROCEDURE: Right Wrist Radiographs. HISTORY: Right wrist pain, ulnar side COMPARISON: None. FINDINGS: BONES: Normal. No fracture. JOINTS: Normal. No dislocation. SOFT TISSUES: Normal. OTHER FINDINGS: Diffuse vascular calcifications. IMPRESSION: No significant or acute findings to account for/ related to the clinical presentation.
--- NOTE | 2017-11-21 20:22 | CP.PCM.CON ---
History of Present Illness - History of Present Illness History of Present Illness: Vascular Surgery - Dr. Julien 52yo M w/ hx of Anemia, Afib, DM, ESRD on HD, recently s/p PD catheter placement , who was brought [facility] ED [facility] on [facility]/19 for weakness, malaise, subjective fevers, and now with complaints of abdominal pain. Pt describes a gradual onset of diffuse abdominal pain which began shortly after the surgery. He states it is worse when he tries to move around or when palpated. He admits to poor appetite and subjective fevers. Pt denies any vomiting, diarrhea, constipation, cough, SOB or chest pains. Surgery is re-consulted to assess the Peritoneal Dialysis catheter. Review of Systems - Review of Systems All systems: reviewed and no additional remarkable complaints except (as per HPI ) Past Patient History - Infectious Disease Hx of Infectious Diseases: None - Tetanus Immunizations Tetanus Immunization: Unknown - Past Medical History & Family History Past Medical History?: Yes - Past Social History Smoking Status: Never Smoked - CARDIAC Hx Atrial Fibrillation: Yes Hx Cardia Arrhythmia: Yes Hx Congestive Heart Failure: No Hx Hypercholesterolemia: Yes Hx Hypertension: Yes Hx Peripheral Edema: Yes - PULMONARY Hx Sleep Apnea: Yes - NEUROLOGICAL Hx Neurological Disorder: No - HEENT Hx HEENT Problems: No - RENAL Hx Chronic Kidney Disease: Yes Hx Kidney Stones: No - ENDOCRINE/METABOLIC Hx Hypothyroidism: No - HEMATOLOGICAL/ONCOLOGICAL Hx Anemia: Yes - INTEGUMENTARY Hx Dermatological Problems: No - MUSCULOSKELETAL/RHEUMATOLOGICAL Hx Arthritis: Yes Hx Fractures: No Hx Osteoporosis: Yes - GASTROINTESTINAL Hx Gastritis: Yes - GENITOURINARY/GYNECOLOGICAL Hx Genitourinary Disorders: No - PSYCHIATRIC Hx Anxiety: Yes Hx Depression: Yes - SURGICAL HISTORY Hx Appendectomy: Yes - ANESTHESIA Hx Anesthesia: Yes Hx Anesthesia Reactions: Yes (AWAKE DURING THE SURGERY) Hx Malignant Hyperthermia: No Meds Allergies/Adverse Reactions: Allergies Allergy/AdvReac Type Severity Reaction Status Date / Time aspirin Allergy RASH Verified 11/08/17 15:24 ketorolac [From Toradol] Allergy RASH Verified 11/08/17 15:24 propoxyphene napsylate Allergy RASH Verified 11/08/17 15:24 [From Darvocet-N] vancomycin AdvReac RASH Verified 11/08/17 15:24 - Medications Medications: Current Medications Acetaminophen (Tylenol 325mg Tab) 650 mg PO Q6 PRN PRN Reason: Fever >100.4 F Acetaminophen (Tylenol 325mg Tab) 650 mg PO Q6 PRN PRN Reason: Pain, Mild (1-3) Last Admin: 11/21/17 10:12 Dose: 650 mg Alprazolam (Xanax) 0.5 mg PO Q8 PRN PRN Reason: Anxiety Apixaban (Eliquis) 2.5 mg PO Q12 [facility] PRN Reason: Protocol Last Admin: 11/21/17 20:07 Dose: 2.5 mg Atorvastatin Calcium (Lipitor) 40 mg PO HS [facility] Last Admin: 11/20/17 22:51 Dose: 40 mg Calcium Acetate (Phoslo) 667 mg PO TID [facility] Last Admin: 11/21/17 18:24 Dose: 667 mg Cholecalciferol (Vitamin D) 2,000 intlu PO DAILY [facility] Last Admin: 11/21/17 10:00 Dose: 2,000 intlu Colchicine (Colocrys) 0.6 mg PO DAILY [facility] Digoxin (Digoxin) 0.125 mg PO [facility] Last Admin: 11/21/17 10:03 Dose: 0.125 mg Diphenoxylate HCl/Atropine (Lomotil 0.025-2.5 Mg Tablet) 2 tab PO Q8 PRN PRN Reason: Diarrhea Gabapentin (Neurontin) 300 mg PO DAILY [facility] Last Admin: 11/21/17 10:02 Dose: 300 mg Home Med (Acetaminophen/Oxycodone Hydr [Percocet 10/325 Mg Tab]) 1 tab PO Q6H PRN PRN Reason: Pain, severe (8-10) Home Med (Febuxostat [Uloric]) 40 mg PO DAILY [facility] Home Med (Gabapentin Enacarbil [Horizant]) 600 mg PO [facility] Home Med (Linaclotide [Linzess]) 145 mcg PO DAILY PRN PRN Reason: Irritable bowel symptoms Ceftaroline Fosamil 200 mg/ (Sodium Chloride) 100 mls @ 100 mls/hr IVPB Q12 [facility] PRN Reason: Protocol Last Admin: 11/21/17 20:07 Dose: 100 mls/hr Insulin Detemir (Levemir) 40 units SC HS [facility] Last Admin: 11/20/17 22:52 Dose: 40 units Insulin Human Lispro (Humalog) 10 - 15 units SC AC [facility] Last Admin: 11/21/17 18:23 Dose: Not Given Lactulose (Enulose) 10 gm PO HS PRN PRN Reason: Constipation Megestrol Acetate (Megace) 600 mg PO DAILY [facility] Last Admin: 11/21/17 09:58 Dose: 600 mg Minoxidil (Minoxidil) 2.5 mg PO Q12 [facility] Last Admin: 11/21/17 20:07 Dose: 2.5 mg Morphine Sulfate (Morphine) 2 mg IVP Q4 PRN PRN Reason: Pain, severe (8-10) Last Admin: 11/21/17 20:06 Dose: 2 mg [id number] Ethyl Esters (Lovaza) 1 gm PO BID [facility] Last Admin: 11/21/17 18:24 Dose: 1 gm Pantoprazole Sodium (Protonix Ec Tab) 40 mg PO DAILY [facility] Last Admin: 11/21/17 10:01 Dose: 40 mg Paroxetine HCl (Paxil) 10 mg PO DAILY [facility] Last Admin: 11/21/17 09:58 Dose: 10 mg Sevelamer HCl (Renagel) 1,600 mg PO TID [facility] Last Admin: 11/21/17 18:25 Dose: 1,600 mg Silver Sulfadiazine (Silvadene 1% 50 Gm) 1 applic TOP BID [facility] Last Admin: 11/21/17 18:26 Dose: 1 applic Tamsulosin HCl (Flomax) 0.4 mg PO HS [facility] Last Admin: 11/20/17 21:30 Dose: 0.4 mg Ticagrelor (Brilinta) 90 mg PO Q12 [facility] Last Admin: 11/21/17 20:07 Dose: 90 mg Verapamil HCl (Calan Sr Capsule) 120 mg PO DAILY [facility] Last Admin: 11/21/17 10:00 Dose: 120 mg Vitamin B Complex/Vit C/Folic Acid (Nephro-Garcia) 1 tab PO DAILY [facility] Last Admin: 11/21/17 09:58 Dose: 1 tab Physical Exam - Constitutional Appears: No Acute Distress - Head Exam Head Exam: ATRAUMATIC, NORMAL INSPECTION, NORMOCEPHALIC - Eye Exam Eye Exam: Normal appearance - Respiratory Exam Respiratory Exam: NORMAL BREATHING PATTERN. absent: Respiratory Distress - Cardiovascular Exam Cardiovascular Exam: REGULAR RHYTHM - GI/Abdominal Exam GI & Abdominal Exam: Guarding, Soft, Tenderness (diffusely). absent: Distended , Firm, Rigid - Neurological Exam Neurological exam: Alert, Oriented x3 - Psychiatric Exam Psychiatric exam: Normal Affect, Normal Mood - Skin Skin Exam: Dry, Intact Results - Vital Signs Recent Vital Signs: Last Vital Signs Temp 97.8 F 11/21/17 16:29 Pulse 74 11/21/17 16:29 Resp 20 11/21/17 16:29 BP 127/71 11/21/17 16:29 Pulse Ox 94 L 11/21/17 16:29 - Labs Result Diagrams: 11/19/17 20:19 11/19/17 20:19 Labs: Laboratory Results - last 24 hr 11/20/17 11/21/17 11/21/17 21:10 05:47 11:27 POC Glucose (mg/dL) 163 H 115 H 131 H Assessment & Plan - Assessment and Plan (Free Text) Assessment: 52 yo M w/ ESRD on HD, recently s/p PD catheter placement, readmitted w/ weakness, poor appetite, abdominal pain -Afebrile, No leukocytosis, Catheter site without signs of infection -Peritonitis unlikely as PD catheter has not been used yet -No surgical interventions at this time -If concerned for peritonitis from PD catheter then recc. obtaining cultures from intra-peritoneal fluid DW Dr Anaya Avila PGY4
[2017-11-21] MEDS: Atropine-Diphenoxylate 0.025-2.5 mg Tab PO PRN (22:37)
[2017-11-21] MEDS: Insulin Detemir 100 Units/ml Inj SC SCH (22:44)
--- NOTE | 2017-11-22 00:07 | CP.PCM.PN ---
Subjective - Date & Time of Evaluation Date of Evaluation: 11/21/17 Time of Evaluation: 16:00 - Subjective Subjective: SEEN ON RENAL F/U CAME BACK FROM MRI .. COULDNT TAKE IT PT WAS CLAUSTROPHOBIC CURRENTLY FULLY ALERT AND ORIANTED PER HIS MOTHER : PT WAS COMPLETLY DISORIANTED OVER THE WEEK END GETTING HIS HD SHORTLY HAS ABDO PAIN AND TENDERNESS AND REBOUND TENDERNESS Objective - Vital Signs/Intake and Output Vital Signs (last 24 hours): Temp Pulse Resp BP Pulse Ox 97.8 F 74 20 127/71 94 L 11/21/17 16:29 11/21/17 16:29 11/21/17 16:29 11/21/17 16:29 11/21/17 16:29 - Medications Medications: Current Medications Acetaminophen (Tylenol 325mg Tab) 650 mg PO Q6 PRN PRN Reason: Fever >100.4 F Acetaminophen (Tylenol 325mg Tab) 650 mg PO Q6 PRN PRN Reason: Pain, Mild (1-3) Last Admin: 11/21/17 10:12 Dose: 650 mg Alprazolam (Xanax) 0.5 mg PO Q8 PRN PRN Reason: Anxiety Apixaban (Eliquis) 2.5 mg PO Q12 [facility] PRN Reason: Protocol Last Admin: 11/21/17 20:07 Dose: 2.5 mg Atorvastatin Calcium (Lipitor) 40 mg PO HS [facility] Last Admin: 11/21/17 22:35 Dose: 40 mg Calcium Acetate (Phoslo) 667 mg PO TID [facility] Last Admin: 11/21/17 18:24 Dose: 667 mg Cholecalciferol (Vitamin D) 2,000 intlu PO DAILY [facility] Last Admin: 11/21/17 10:00 Dose: 2,000 intlu Colchicine (Colocrys) 0.6 mg PO DAILY [facility] Digoxin (Digoxin) 0.125 mg PO MWF [facility] Last Admin: 11/21/17 10:03 Dose: 0.125 mg Diphenoxylate HCl/Atropine (Lomotil 0.025-2.5 Mg Tablet) 2 tab PO Q8 PRN PRN Reason: Diarrhea Last Admin: 11/21/17 22:37 Dose: 2 tab Gabapentin (Neurontin) 300 mg PO DAILY [facility] Last Admin: 11/21/17 10:02 Dose: 300 mg Home Med (Acetaminophen/Oxycodone Hydr [Percocet 10/325 Mg Tab]) 1 tab PO Q6H PRN PRN Reason: Pain, severe (8-10) Home Med (Febuxostat [Uloric]) 40 mg PO DAILY [facility] Home Med (Gabapentin Enacarbil [Horizant]) 600 mg PO [facility] Home Med (Linaclotide [Linzess]) 145 mcg PO DAILY PRN PRN Reason: Irritable bowel symptoms Ceftaroline Fosamil 200 mg/ (Sodium Chloride) 100 mls @ 100 mls/hr IVPB Q12 [facility] PRN Reason: Protocol Last Admin: 11/21/17 20:07 Dose: 100 mls/hr Insulin Detemir (Levemir) 40 units SC HS [facility] Last Admin: 11/21/17 22:44 Dose: Not Given Insulin Human Lispro (Humalog) 10 - 15 units SC [facility] Last Admin: 11/21/17 18:23 Dose: Not Given Lactulose (Enulose) 10 gm PO HS PRN PRN Reason: Constipation Megestrol Acetate (Megace) 600 mg PO DAILY [facility] Last Admin: 11/21/17 09:58 Dose: 600 mg Minoxidil (Minoxidil) 2.5 mg PO Q12 [facility] Last Admin: 11/21/17 20:07 Dose: 2.5 mg Morphine Sulfate (Morphine) 2 mg IVP Q4 PRN PRN Reason: Pain, severe (8-10) Last Admin: 11/21/17 20:06 Dose: 2 mg Hfquo-[id number] Ethyl Esters (Lovaza) 1 gm PO BID [facility] Last Admin: 11/21/17 18:24 Dose: 1 gm Pantoprazole Sodium (Protonix Ec Tab) 40 mg PO DAILY [facility] Last Admin: 11/21/17 10:01 Dose: 40 mg Paroxetine HCl (Paxil) 10 mg PO DAILY [facility] Last Admin: 11/21/17 09:58 Dose: 10 mg Sevelamer HCl (Renagel) 1,600 mg PO TID [facility] Last Admin: 11/21/17 18:25 Dose: 1,600 mg Silver Sulfadiazine (Silvadene 1% 50 Gm) 1 applic TOP BID [facility] Last Admin: 11/21/17 18:26 Dose: 1 applic Tamsulosin HCl (Flomax) 0.4 mg PO [facility] Last Admin: 11/21/17 22:35 Dose: 0.4 mg Ticagrelor (Brilinta) 90 mg PO Q12 [facility] Last Admin: 11/21/17 20:07 Dose: 90 mg Verapamil HCl (Calan Sr Capsule) 120 mg PO DAILY [facility] Last Admin: 11/21/17 10:00 Dose: 120 mg Vitamin B Complex/Vit C/Folic Acid (Nephro-Garcia) 1 tab PO DAILY [facility] Last Admin: 11/21/17 09:58 Dose: 1 tab - Labs Labs: 11/19/17 20:19 11/19/17 20:19 PT 13.7 Seconds (9.8-13.1) H 11/19/17 20:19 INR 1.2 (0.9-1.2) 11/19/17 20:19 APTT 37.1 Seconds (25.6-37.1) 11/19/17 20:19 Assessment and Plan - Assessment and Plan (Free Text) Assessment: ESRD ON HD M W F .. GETTING HD SHORTLY ANEMIA OF CKD .. H/H STABLE CHANGE IN MENTAL STATUS AND CONFUSION .. ETIOLOGY ? SEPSIS ON IVAB PERITONITIS ..HAS ABDO PAIN AND REBOUND TENDERNESS MMP P : C/O IVAB HD M W F C/O CURRENT MEDS C/O PRESENT CARE
[2017-11-22] MEDS ORDERED: Oxycodone/Acetaminophen 5/325 mg Tab PO PRN (00:18)
--- NOTE | 2017-11-22 00:20 | PN ---
DATE: 11/21/2017 DAILY PROGRESS NOTE SUBJECTIVE: The patient is seen today, 11/21/2017. He is not in any cardiopulmonary distress. The patient is complaining of back pain and right wrist pain. PHYSICAL EXAMINATION: VITAL SIGNS: Blood pressure is 127/71, temperature 97.8, respiratory rate 20, and pulse 74. HEENT: Pupils equal and reactive to light. Normal-appearing mucosa of the conjunctivae, oropharynx and nasal membrane mucosa. NECK: Supple. No JVD. No carotid bruit. No lymph node. No thyromegaly. CHEST AND LUNGS: Bilateral symmetrical expansion. Good air exchange. No rales. No rhonchi. CARDIOVASCULAR SYSTEM: PMI not localized. S1, S2. No additional sounds. ABDOMEN: Normoactive bowel sounds. There is tenderness at the site of the peritoneal dialysis. EXTREMITIES: Right transmetatarsal amputation. [employer]: Alert, awake, oriented x2 and moves all extremities equally with no lateralization. ASSESSMENT: 1. Change of mental status secondary to metabolic encephalopathy, likely hypoglycemia versus infection. 2. End-stage renal disease, on hemodialysis through right Shiley catheter. 3. Possible peritoneal access infection. 4. Type 2 diabetes mellitus. 5. Coronary artery disease, status post percutaneous coronary intervention. PLAN: Follow ID recommendations, surgical consult. We will do x-ray of the right wrist. Start the patient on colchicine, treating possible gouty arthritis. We will also start the patient on Dilaudid 0.5 every 6 hours p.r.n. for pain. Resume the patient's home medications. Mildred Warren MD
[2017-11-22 02:32] LABS: HEMOGLOBIN 12.7 g/dL (12.0-18.0); MEAN CELL VOLUME 80.8 fl (80.0-94.0); MEAN CORPUSCULAR HEMOGLOBIN 26.5 pg (27.0-31.0); MEAN CORPUSCULAR HGB CONC 32.8 g/dL (33.0-37.0); RBC 4.8 Mil/uL (4.40-5.90); RED CELL DISTRIBUTION WIDTH 16.1 % (11.5-14.5); WHITE BLOOD COUNT 5.9 K/uL (4.8-10.8)
[2017-11-22 03:00] LABS: ALBUMIN 4.9 g/dL (3.5-5.0); CALCIUM 9.9 mg/dL (8.4-10.2)
[2017-11-22] MEDS: Atropine-Diphenoxylate 0.025-2.5 mg Tab PO PRN ×2 (08:53→17:52)
[2017-11-22] MEDS: Pantoprazole 40 mg EC Tab PO SCH (08:56)
[2017-11-22] MEDS: Multivitamin Vitamin B Complex (Nephro-Vite) Tab PO SCH (08:56)
[2017-11-22] MEDS: Omega-3-Acid Ethyl Esters 1 GM Cap PO SCH ×2 (08:56→17:44)
[2017-11-22] MEDS: Cholecalciferol 1,000 INTLU TAB PO SCH (08:57)
[2017-11-22] MEDS: Verapamil SR 120 MG CApsule PO SCH (08:57)
[2017-11-22] MEDS: Calcium Acetate 667 MG Capsule PO SCH ×3 (08:58→17:43)
[2017-11-22] MEDS: Insulin Lispro (humaLOG) 100 Units/ml Inj SC SCH ×3 (08:59→17:11)
[2017-11-22] MEDS: Silver Sulfadiazine 1% CREAM (50 gm) TOP SCH ×2 (09:00→17:44)
[2017-11-22] MEDS ORDERED: Iohexol 240 (50 ml) PO ONE (09:02)
--- NOTE | 2017-11-22 09:06 | CP.PCM.PN ---
Subjective - Date & Time of Evaluation Date of Evaluation: 11/22/17 Time of Evaluation: 09:03 - Subjective Subjective: Surgery Pt seen and examined. C/O abd pain. Denies nausea. Denies using the PD catheter. Objective - Vital Signs/Intake and Output Vital Signs (last 24 hours): Temp Pulse Resp BP Pulse Ox 98.8 F 82 20 119/63 100 11/22/17 08:25 11/22/17 08:25 11/22/17 08:25 11/22/17 08:25 11/22/17 08:25 - Medications Medications: Current Medications Acetaminophen (Tylenol 325mg Tab) 650 mg PO Q6 PRN PRN Reason: Fever >100.4 F Acetaminophen (Tylenol 325mg Tab) 650 mg PO Q6 PRN PRN Reason: Pain, Mild (1-3) Last Admin: 11/21/17 10:12 Dose: 650 mg Alprazolam (Xanax) 0.5 mg PO Q8 PRN PRN Reason: Anxiety Apixaban (Eliquis) 2.5 mg PO Q12 [facility] PRN Reason: Protocol Last Admin: 11/22/17 08:56 Dose: 2.5 mg Atorvastatin Calcium (Lipitor) 40 mg PO HS [facility] Last Admin: 11/21/17 22:35 Dose: 40 mg Calcium Acetate (Phoslo) 667 mg PO TID [facility] Last Admin: 11/22/17 08:58 Dose: 667 mg Cholecalciferol (Vitamin D) 2,000 intlu PO DAILY [facility] Last Admin: 11/22/17 08:57 Dose: 2,000 intlu Colchicine (Colocrys) 0.6 mg PO DAILY [facility] Last Admin: 11/22/17 08:56 Dose: 0.6 mg Digoxin (Digoxin) 0.125 mg PO MWF [facility] Last Admin: 11/21/17 10:03 Dose: 0.125 mg Diphenoxylate HCl/Atropine (Lomotil 0.025-2.5 Mg Tablet) 2 tab PO Q8 PRN PRN Reason: Diarrhea Last Admin: 11/22/17 08:53 Dose: 2 tab Gabapentin (Neurontin) 300 mg PO DAILY [facility] Last Admin: 11/22/17 08:57 Dose: 300 mg Home Med (Acetaminophen/Oxycodone Hydr [Percocet 10/325 Mg Tab]) 1 tab PO Q6H PRN PRN Reason: Pain, severe (8-10) Home Med (Febuxostat [Uloric]) 40 mg PO DAILY [facility] Home Med (Gabapentin Enacarbil [Horizant]) 600 mg PO HS [facility] Home Med (Linaclotide [Linzess]) 145 mcg PO DAILY [facility]N PRN Reason: Irritable bowel symptoms Ceftaroline Fosamil 200 mg/ (Sodium Chloride) 100 mls @ 100 mls/hr IVPB Q12 [facility] PRN Reason: Protocol Last Admin: 11/21/17 20:07 Dose: 100 mls/hr Insulin Detemir (Levemir) 40 units SC HS [facility] Last Admin: 11/21/17 22:44 Dose: Not Given Insulin Human Lispro (Humalog) 10 - 15 units SC [facility] Last Admin: 11/22/17 08:59 Dose: Not Given Lactulose (Enulose) 10 gm PO HS PRN PRN Reason: Constipation Megestrol Acetate (Megace) 600 mg PO DAILY [facility] Last Admin: 11/21/17 09:58 Dose: 600 mg Minoxidil (Minoxidil) 2.5 mg PO Q12 [facility] Last Admin: 11/22/17 08:55 Dose: 2.5 mg Morphine Sulfate (Morphine) 2 mg IVP Q4 PRN PRN Reason: Pain, severe (8-10) Last Admin: 11/22/17 05:56 Dose: 2 mg [id number] Ethyl Esters (Lovaza) 1 gm PO BID [facility] Last Admin: 11/22/17 08:56 Dose: 1 gm Pantoprazole Sodium (Protonix Ec Tab) 40 mg PO DAILY [facility] Last Admin: 11/22/17 08:56 Dose: 40 mg Paroxetine HCl (Paxil) 10 mg PO DAILY [facility] Last Admin: 11/22/17 08:57 Dose: 10 mg Sevelamer HCl (Renagel) 1,600 mg PO TID [facility] Last Admin: 11/22/17 08:55 Dose: 1,600 mg Silver Sulfadiazine (Silvadene 1% 50 Gm) 1 applic TOP BID [facility] Last Admin: 11/22/17 09:00 Dose: 1 applic Tamsulosin HCl (Flomax) 0.4 mg PO [facility] Last Admin: 11/21/17 22:35 Dose: 0.4 mg Ticagrelor (Brilinta) 90 mg PO Q12 [facility] Last Admin: 11/22/17 08:57 Dose: 90 mg Verapamil HCl (Calan Sr Capsule) 120 mg PO DAILY [facility] Last Admin: 11/22/17 08:57 Dose: 120 mg Vitamin B Complex/Vit C/Folic Acid (Nephro-Garcia) 1 tab PO DAILY [facility] Last Admin: 11/22/17 08:56 Dose: 1 tab - Labs Labs: 11/22/17 02:25 11/22/17 02:25 PT 13.7 Seconds (9.8-13.1) H 11/19/17 20:19 INR 1.2 (0.9-1.2) 11/19/17 20:19 APTT 37.1 Seconds (25.6-37.1) 11/19/17 20:19 - Constitutional Appears: Non-toxic - Head Exam Head Exam: ATRAUMATIC, NORMAL INSPECTION, NORMOCEPHALIC - Eye Exam Eye Exam: EOMI, Normal appearance, PERRL Pupil Exam: NORMAL ACCOMODATION, PERRL - ENT Exam ENT Exam: Mucous Membranes Moist, Normal Exam - Neck Exam Neck Exam: Full ROM, Normal Inspection. absent: Lymphadenopathy - Respiratory Exam Respiratory Exam: NORMAL BREATHING PATTERN - Cardiovascular Exam Cardiovascular Exam: REGULAR RHYTHM - GI/Abdominal Exam GI & Abdominal Exam: Soft, Tenderness, Rebound. absent: Distended, Firm, Guarding, Rigid Additional comments: LLQ TTP. multiple well healed scars. No signs of infection around the catheter - Exam Exam: NORMAL INSPECTION - Extremities Exam Additional comments: Permacath in place - Back Exam Back Exam: NORMAL INSPECTION - Neurological Exam Neurological Exam: Alert, Awake, CN II-XII Intact, Normal Gait, Oriented x3 - Psychiatric Exam Psychiatric exam: Normal Affect, Normal Mood - Skin Skin Exam: Dry, Intact, Normal Color, Warm Assessment and Plan - Assessment and Plan (Free Text) Assessment: 52 yo M w/ ESRD on HD, recently s/p PD catheter placement, readmitted w/ weakness, poor appetite, abdominal pain -Afebrile, No leukocytosis, Catheter site without signs of infection -Peritonitis unlikely as PD catheter has not been used yet -No surgical interventions at this time -If concerned for peritonitis from PD catheter then recc. obtaining cultures from intra-peritoneal fluid -F/U CT -ABX Will DW Dr Julien
--- NOTE | 2017-11-22 10:36 | CP.PCM.PN ---
Subjective - Date & Time of Evaluation Date of Evaluation: 11/22/17 Time of Evaluation: 10:35 - Subjective Subjective: ID note- pt. seen and examined today. denies any fever or chills. states he still has right wrist pain but less than yesterday but he states he is less tired today. Objective - Vital Signs/Intake and Output Vital Signs (last 24 hours): Temp Pulse Resp BP Pulse Ox 98.8 F 82 20 119/63 100 11/22/17 08:25 11/22/17 08:25 11/22/17 08:25 11/22/17 08:25 11/22/17 08:25 - Medications Medications: Current Medications Acetaminophen (Tylenol 325mg Tab) 650 mg PO Q6 PRN PRN Reason: Fever >100.4 F Acetaminophen (Tylenol 325mg Tab) 650 mg PO Q6 PRN PRN Reason: Pain, Mild (1-3) Last Admin: 11/21/17 10:12 Dose: 650 mg Alprazolam (Xanax) 0.5 mg PO Q8 PRN PRN Reason: Anxiety Apixaban (Eliquis) 2.5 mg PO Q12 [facility] PRN Reason: Protocol Last Admin: 11/22/17 08:56 Dose: 2.5 mg Atorvastatin Calcium (Lipitor) 40 mg PO HS [facility] Last Admin: 11/21/17 22:35 Dose: 40 mg Calcium Acetate (Phoslo) 667 mg PO TID [facility] Last Admin: 11/22/17 08:58 Dose: 667 mg Cholecalciferol (Vitamin D) 2,000 intlu PO DAILY [facility] Last Admin: 11/22/17 08:57 Dose: 2,000 intlu Colchicine (Colocrys) 0.6 mg PO DAILY [facility] Last Admin: 11/22/17 08:56 Dose: 0.6 mg Digoxin (Digoxin) 0.125 mg PO MWF [facility] Last Admin: 11/21/17 10:03 Dose: 0.125 mg Diphenoxylate HCl/Atropine (Lomotil 0.025-2.5 Mg Tablet) 2 tab PO Q8 PRN PRN Reason: Diarrhea Last Admin: 11/22/17 08:53 Dose: 2 tab Gabapentin (Neurontin) 300 mg PO DAILY [facility] Last Admin: 11/22/17 08:57 Dose: 300 mg Home Med (Acetaminophen/Oxycodone Hydr [Percocet 10/325 Mg Tab]) 1 tab PO Q6H PRN PRN Reason: Pain, severe (8-10) Home Med (Febuxostat [Uloric]) 40 mg PO DAILY [facility] Home Med (Gabapentin Enacarbil [Horizant]) 600 mg PO [facility] Home Med (Linaclotide [Linzess]) 145 mcg PO DAILY PRN PRN Reason: Irritable bowel symptoms Ceftaroline Fosamil 200 mg/ (Sodium Chloride) 100 mls @ 100 mls/hr IVPB Q12 [facility] PRN Reason: Protocol Last Admin: 11/21/17 20:07 Dose: 100 mls/hr Insulin Detemir (Levemir) 40 units SC HS [facility] Last Admin: 11/21/17 22:44 Dose: Not Given Insulin Human Lispro (Humalog) 10 - 15 units SC [facility] Last Admin: 11/22/17 08:59 Dose: Not Given Lactulose (Enulose) 10 gm PO HS PRN PRN Reason: Constipation Megestrol Acetate (Megace) 600 mg PO DAILY [facility] Last Admin: 11/21/17 09:58 Dose: 600 mg Minoxidil (Minoxidil) 2.5 mg PO Q12 [facility] Last Admin: 11/22/17 08:55 Dose: 2.5 mg Morphine Sulfate (Morphine) 2 mg IVP Q4 PRN PRN Reason: Pain, severe (8-10) Last Admin: 11/22/17 10:07 Dose: 2 mg Otwnm-4-Gdda Ethyl Esters (Lovaza) 1 gm PO BID [facility] Last Admin: 11/22/17 08:56 Dose: 1 gm Pantoprazole Sodium (Protonix Ec Tab) 40 mg PO DAILY [facility] Last Admin: 11/22/17 08:56 Dose: 40 mg Paroxetine HCl (Paxil) 10 mg PO DAILY [facility] Last Admin: 11/22/17 08:57 Dose: 10 mg Sevelamer HCl (Renagel) 1,600 mg PO TID [facility] Last Admin: 11/22/17 08:55 Dose: 1,600 mg Silver Sulfadiazine (Silvadene 1% 50 Gm) 1 applic TOP BID [facility] Last Admin: 11/22/17 09:00 Dose: 1 applic Tamsulosin HCl (Flomax) 0.4 mg PO [facility] Last Admin: 11/21/17 22:35 Dose: 0.4 mg Ticagrelor (Brilinta) 90 mg PO Q12 [facility] Last Admin: 11/22/17 08:57 Dose: 90 mg Verapamil HCl (Calan Sr Capsule) 120 mg PO DAILY [facility] Last Admin: 11/22/17 08:57 Dose: 120 mg Vitamin B Complex/Vit C/Folic Acid (Nephro-Garcia) 1 tab PO DAILY [facility] Last Admin: 11/22/17 08:56 Dose: 1 tab - Labs Labs: - Additional Findings Additional findings: Constitutional Appears: No Acute Distress - Head Exam Head Exam: ATRAUMATIC - ENT Exam ENT Exam: Normal Oropharynx - Neck Exam Neck exam: Positive for: Full Rom - Respiratory Exam Respiratory Exam: Clear to Auscultation Bilateral, NORMAL BREATHING PATTERN - Cardiovascular Exam Cardiovascular Exam: RRR, +S1, +S2 - GI/Abdominal Exam GI & Abdominal Exam: Normal Bowel Sounds, Soft Additional comments: NT, ND PD catheter in place (not used yet) - Extremities Exam Additional comments: no edema b/l LE right wrist no edema, no erythema has tenderness with flexion - Neurological Exam Neurological exam: Alert, Oriented x 3 Laboratory Results - last 72 hr 11/19/17 11/19/17 11/19/17 08:50 19:54 20:06 WBC RBC Hgb Hct MCV MCH MCHC RDW Plt Count MPV Neut % (Auto) Lymph % (Auto) Cuming % (Auto) Eos % (Auto) Baso % (Auto) Neut # (Auto) Lymph # (Auto) Cuming # (Auto) Eos # (Auto) Baso # (Auto) Neutrophils % (Manual) Band Neutrophils % Lymphocytes % (Manual) Monocytes % (Manual) Eosinophils % (Manual) Basophils % (Manual) Platelet Estimate PT INR APTT pO2 48 VBG pH 7.39 VBG pCO2 48 VBG HCO3 27.2 VBG Total CO2 30.6 H VBG O2 Sat (Calc) 87.4 H VBG Base Excess 3.4 H VBG Potassium 5.6 H Sodium 133.0 Chloride 98.0 Glucose 102 Lactate 0.8 FiO2 21.0 Potassium 5.5 H Carbon Dioxide Anion Gap BUN Creatinine Est GFR ( Amer) Est GFR (Non-Af Amer) POC Glucose (mg/dL) 100 Random Glucose Calcium Phosphorus Magnesium Total Bilirubin AST ALT Alkaline Phosphatase Ammonia Troponin I Total Protein Albumin Globulin Albumin/Globulin Ratio Venous Blood Potassium 5.6 H Blood Type Antibody Screen BBK History Checked 11/19/17 11/19/17 11/19/17 20:19 20:19 20:19 WBC 7.3 RBC 4.25 L Hgb 11.2 L Hct 34.5 L MCV 81.2 MCH 26.4 L MCHC 32.6 L RDW 16.1 H Plt Count 218 MPV 7.4 Neut % (Auto) 58.9 Lymph % (Auto) 14.6 L Cuming % (Auto) 21.5 H Eos % (Auto) 4.3 H Baso % (Auto) 0.7 Neut # (Auto) 4.3 Lymph # (Auto) 1.1 Cuming # (Auto) 1.6 H Eos # (Auto) 0.3 Baso # (Auto) 0.0 Neutrophils % (Manual) 62 Band Neutrophils % 2 Lymphocytes % (Manual) 15 L Monocytes % (Manual) 18 H Eosinophils % (Manual) 2 Basophils % (Manual) 1 Platelet Estimate Normal PT 13.7 H INR 1.2 APTT 37.1 pO2 VBG pH VBG pCO2 VBG HCO3 VBG Total CO2 VBG O2 Sat (Calc) VBG Base Excess VBG Potassium Sodium 136 Chloride 97 L Glucose Lactate FiO2 Potassium 6.0 H Carbon Dioxide 24 Anion Gap 21 H BUN 36 H Creatinine 11.6 H* Est GFR ( Amer) 6 Est GFR (Non-Af Amer) 5 POC Glucose (mg/dL) Random Glucose 97 Calcium 9.7 Phosphorus 6.6 H Magnesium 2.0 Total Bilirubin 1.3 AST 55 ALT 31 Alkaline Phosphatase 194 H D Ammonia Troponin I 0.0530 Total Protein 7.8 Albumin 4.2 Globulin 3.6 Albumin/Globulin Ratio 1.2 Venous Blood Potassium Blood Type Antibody Screen BBK History Checked 11/19/17 11/20/17 11/20/17 20:41 07:02 10:32 WBC RBC Hgb Hct MCV MCH MCHC RDW Plt Count MPV Neut % (Auto) Lymph % (Auto) Cuming % (Auto) Eos % (Auto) Baso % (Auto) Neut # (Auto) Lymph # (Auto) Cuming # (Auto) Eos # (Auto) Baso # (Auto) Neutrophils % (Manual) Band Neutrophils % Lymphocytes % (Manual) Monocytes % (Manual) Eosinophils % (Manual) Basophils % (Manual) Platelet Estimate PT INR APTT pO2 VBG pH VBG pCO2 VBG HCO3 VBG Total CO2 VBG O2 Sat (Calc) VBG Base Excess VBG Potassium Sodium Chloride Glucose Lactate FiO2 Potassium Carbon Dioxide Anion Gap BUN Creatinine Est GFR ( Amer) Est GFR (Non-Af Amer) POC Glucose (mg/dL) 88 88 Random Glucose Calcium Phosphorus Magnesium Total Bilirubin AST ALT Alkaline Phosphatase Ammonia Troponin I Total Protein Albumin Globulin Albumin/Globulin Ratio Venous Blood Potassium Blood Type O POSITIVE Antibody Screen Negative BBK History Checked Patient has bt 11/20/17 11/20/17 11/20/17 13:45 14:34 16:18 WBC RBC Hgb Hct MCV MCH MCHC RDW Plt Count MPV Neut % (Auto) Lymph % (Auto) Cuming % (Auto) Eos % (Auto) Baso % (Auto) Neut # (Auto) Lymph # (Auto) Cuming # (Auto) Eos # (Auto) Baso # (Auto) Neutrophils % (Manual) Band Neutrophils % Lymphocytes % (Manual) Monocytes % (Manual) Eosinophils % (Manual) Basophils % (Manual) Platelet Estimate PT INR APTT pO2 VBG pH VBG pCO2 VBG HCO3 VBG Total CO2 VBG O2 Sat (Calc) VBG Base Excess VBG Potassium Sodium Chloride Glucose Lactate FiO2 Potassium Carbon Dioxide Anion Gap BUN Creatinine Est GFR ( Amer) Est GFR (Non-Af Amer) POC Glucose (mg/dL) 120 H 107 89 Random Glucose Calcium Phosphorus Magnesium Total Bilirubin AST ALT Alkaline Phosphatase Ammonia Troponin I Total Protein Albumin Globulin Albumin/Globulin Ratio Venous Blood Potassium Blood Type Antibody Screen BBK History Checked 11/20/17 11/20/17 11/21/17 18:52 21:10 05:47 WBC RBC Hgb Hct MCV MCH MCHC RDW Plt Count MPV Neut % (Auto) Lymph % (Auto) Cuming % (Auto) Eos % (Auto) Baso % (Auto) Neut # (Auto) Lymph # (Auto) Cuming # (Auto) Eos # (Auto) Baso # (Auto) Neutrophils % (Manual) Band Neutrophils % Lymphocytes % (Manual) Monocytes % (Manual) Eosinophils % (Manual) Basophils % (Manual) Platelet Estimate PT INR APTT pO2 VBG pH VBG pCO2 VBG HCO3 VBG Total CO2 VBG O2 Sat (Calc) VBG Base Excess VBG Potassium Sodium Chloride Glucose Lactate FiO2 Potassium Carbon Dioxide Anion Gap BUN Creatinine Est GFR ( Amer) Est GFR (Non-Af Amer) POC Glucose (mg/dL) 128 H 163 H 115 H Random Glucose Calcium Phosphorus Magnesium Total Bilirubin AST ALT Alkaline Phosphatase Ammonia Troponin I Total Protein Albumin Globulin Albumin/Globulin Ratio Venous Blood Potassium Blood Type Antibody Screen BBK History Checked 11/21/17 11/21/17 11/22/17 11:27 21:43 02:25 WBC RBC Hgb Hct MCV MCH MCHC RDW Plt Count MPV Neut % (Auto) Lymph % (Auto) Cuming % (Auto) Eos % (Auto) Baso % (Auto) Neut # (Auto) Lymph # (Auto) Cuming # (Auto) Eos # (Auto) Baso # (Auto) Neutrophils % (Manual) Band Neutrophils % Lymphocytes % (Manual) Monocytes % (Manual) Eosinophils % (Manual) Basophils % (Manual) Platelet Estimate PT INR APTT pO2 VBG pH VBG pCO2 VBG HCO3 VBG Total CO2 VBG O2 Sat (Calc) VBG Base Excess VBG Potassium Sodium Chloride Glucose Lactate FiO2 Potassium 3.6 Carbon Dioxide Anion Gap BUN Creatinine Est GFR ( Amer) Est GFR (Non-Af Amer) POC Glucose (mg/dL) 131 H 125 H Random Glucose Calcium Phosphorus Magnesium Total Bilirubin AST ALT Alkaline Phosphatase Ammonia Troponin I Total Protein Albumin Globulin Albumin/Globulin Ratio Venous Blood Potassium Blood Type Antibody Screen BBK History Checked 11/22/17 11/22/17 11/22/17 02:25 02:25 02:25 WBC 5.9 RBC 4.80 Hgb 12.7 Hct 38.8 MCV 80.8 MCH 26.5 L MCHC 32.8 L RDW 16.1 H Plt Count 209 MPV Neut % (Auto) Lymph % (Auto) Cuming % (Auto) Eos % (Auto) Baso % (Auto) Neut # (Auto) Lymph # (Auto) Cuming # (Auto) Eos # (Auto) Baso # (Auto) Neutrophils % (Manual) Band Neutrophils % Lymphocytes % (Manual) Monocytes % (Manual) Eosinophils % (Manual) Basophils % (Manual) Platelet Estimate PT INR APTT pO2 VBG pH VBG pCO2 VBG HCO3 VBG Total CO2 VBG O2 Sat (Calc) VBG Base Excess VBG Potassium Sodium 141 Chloride 94 L Glucose Lactate FiO2 Potassium 3.6 Carbon Dioxide 28 Anion Gap 23 H BUN 19 Creatinine 8.4 H* D Est GFR ( Amer) 8 Est GFR (Non-Af Amer) 7 POC Glucose (mg/dL) Random Glucose 124 H Calcium 9.9 Phosphorus Magnesium Total Bilirubin 1.0 AST 54 ALT 22 Alkaline Phosphatase 306 H D Ammonia < 9 L Troponin I Total Protein 9.7 H Albumin 4.9 Globulin 4.8 H Albumin/Globulin Ratio 1.0 Venous Blood Potassium Blood Type Antibody Screen BBK History Checked 11/22/17 11/22/17 11/22/17 05:27 11:13 15:49 WBC RBC Hgb Hct MCV MCH MCHC RDW Plt Count MPV Neut % (Auto) Lymph % (Auto) Cuming % (Auto) Eos % (Auto) Baso % (Auto) Neut # (Auto) Lymph # (Auto) Cuming # (Auto) Eos # (Auto) Baso # (Auto) Neutrophils % (Manual) Band Neutrophils % Lymphocytes % (Manual) Monocytes % (Manual) Eosinophils % (Manual) Basophils % (Manual) Platelet Estimate PT INR APTT pO2 VBG pH VBG pCO2 VBG HCO3 VBG Total CO2 VBG O2 Sat (Calc) VBG Base Excess VBG Potassium Sodium Chloride Glucose Lactate FiO2 Potassium Carbon Dioxide Anion Gap BUN Creatinine Est GFR ( Amer) Est GFR (Non-Af Amer) POC Glucose (mg/dL) 139 H 107 106 Random Glucose Calcium Phosphorus Magnesium Total Bilirubin AST ALT Alkaline Phosphatase Ammonia Troponin I Total Protein Albumin Globulin Albumin/Globulin Ratio Venous Blood Potassium Blood Type Antibody Screen BBK History Checked Microbiology 11/19/17 23:10 Blood Blood Culture - Preliminary NO GROWTH AFTER 48 HOURS 11/19/17 23:10 Blood Blood Culture - Preliminary NO GROWTH AFTER 48 HOURS 11/20/17 10:30 Blood-Thru Central Line S.aureus & Coag-Neg Staph PNA FISH - Final 11/20/17 10:30 Blood-Thru Central Line Blood Culture - Preliminary Gram Positive Cocci 11/20/17 10:30 Blood-Thru Central Line Gram Stain - Final 11/19/17 20:19 Blood Blood Culture - Preliminary NO GROWTH AFTER 48 HOURS 11/20/17 10:00 Urine Urine Culture - Final No Growth (<1,000 CFU/ML) Accession No. : [id number] Patient Name / ID : KYM Brooke / [id number] Exam Date : 11/21/2017 14:04:55 ( Approved ) Study Comment : Sex / Age : M Creator : Jose Mobley MD Dictator : Jose Mobley MD Sheet Metal Foreman : Principal Statistical Scientist : Jose Mobley MD Approver2 : Report Date : 11/21/2017 16:24:04 My Comment : PROCEDURE: Right Wrist Radiographs. HISTORY: Right wrist pain, ulnar side COMPARISON: None. FINDINGS: BONES: Normal. No fracture. JOINTS: Normal. No dislocation. SOFT TISSUES: Normal. OTHER FINDINGS: Diffuse vascular calcifications. IMPRESSION: No significant or acute findings to account for/ related to the clinical presentation. Accession No. : [id number] Patient Name / ID : KYM SCRUGGS / [id number] Exam Date : 11/22/2017 12:31:01 ( Approved ) Study Comment : Sex / Age : Creator : Jose Mobley MD Dictator : Jose Mobley MD Sheet Metal Foreman : Principal Statistical Scientist : Jose Mobley MD Approver2 : Report Date : 11/22/2017 13:08:49 My Comment : Date of service: 11/22/2017 PROCEDURE: CT Abdomen and Pelvis with contrast HISTORY: abdominal pain, r/o peritonitis COMPARISON: 11/08/2017 CT abdomen and pelvis. 08/17/2017 CT abdomen and pelvis. TECHNIQUE: Oral contrast only. Radiation dose: Total exam DLP = 777.46 mGy-cm. This CT exam was performed using one or more of the following dose reduction techniques: Automated exposure control, adjustment of the mA and/or kV according to patient size, and/or use of iterative reconstruction technique. FINDINGS: LOWER THORAX: Unremarkable. LIVER: Unremarkable. No gross lesion or ductal dilatation. GALLBLADDER AND BILE DUCTS: Unremarkable. PANCREAS: Unremarkable. No gross lesion or ductal dilatation. SPLEEN: Unremarkable. ADRENALS: Unremarkable. No mass. KIDNEYS AND URETERS: Stable, atrophic calcified [place] kidneys. Stable position and appearance of renal transplant right lower quadrant. VASCULATURE: Densely calcified non aneurysmal abdominal aorta. Diffuse, severe calcifications within mesenteric a.m. branch vessels to major abdominal pelvic viscera. BOWEL: Faxed bases anterior abdominal wall/ rectus musculature with unremarkable loops of small bowel noted in the immediate subcutaneous space. No evidence of enteritis or colitis. APPENDIX: A normal appendix is not visualized. PERITONEUM: Unremarkable. No free fluid. No free air. Peritoneal dialysis catheter identified inserted via right upper quadrant of approach, the catheter courses through the abdomen, the tip is in the left upper quadrant. No abnormalities with respect to the visualized peritoneal dialysis catheter. LYMPH NODES: Unremarkable. No enlarged lymph nodes. BLADDER: Unremarkable. REPRODUCTIVE: Unremarkable. BONES: No acute fracture. OTHER FINDINGS: None. IMPRESSION: No acute findings related to/accounting for the clinical presentation. No significant interval change compared to the prior examination(s). New peritoneal dialysis catheter placed in the antrum since the prior study. No adverse findings. No CT evidence of peritonitis. Assessment and Plan (1) Fever in adult Status: Acute (2) AV shunt malfunction Status: Acute - Assessment and Plan (Free Text) Assessment: A/P- 52 year old male with ESRD oN HD who was recently d/c to [place] readmitted with low garde fever and AMS. afebrile today. normal wbc count AMS has resolved now. Brain CT - as per report negative CXR- no active disease as per report. wrist xray- negative as per report abd /pelvic CT- no evidence of peritonitis as per report blood cx from HD line 11/20/2017- coag neg staph x 1 blood cx from 11/19/2017- neg x 3 (peripheral) plan- advise to continue with IV teflaro ( HD Dose) for coag neg staph bactermia. day #3. HD catheter may need to be removed if repeat blood cx from the line are still psoitve. check TTE r/o vegetations.
--- NOTE | 2017-11-22 13:15 | CT ---
Date of service: 11/22/2017 PROCEDURE: CT Abdomen and Pelvis with contrast HISTORY: abdominal pain, r/o peritonitis COMPARISON: 11/08/2017 CT abdomen and pelvis. 08/17/2017 CT abdomen and pelvis. TECHNIQUE: Oral contrast only. Radiation dose: Total exam DLP = 777.46 mGy-cm. This CT exam was performed using one or more of the following dose reduction techniques: Automated exposure control, adjustment of the mA and/or kV according to patient size, and/or use of iterative reconstruction technique. FINDINGS: LOWER THORAX: Unremarkable. LIVER: Unremarkable. No gross lesion or ductal dilatation. GALLBLADDER AND BILE DUCTS: Unremarkable. PANCREAS: Unremarkable. No gross lesion or ductal dilatation. SPLEEN: Unremarkable. ADRENALS: Unremarkable. No mass. KIDNEYS AND URETERS: Stable, atrophic calcified [place] kidneys. Stable position and appearance of renal transplant right lower quadrant. VASCULATURE: Densely calcified non aneurysmal abdominal aorta. Diffuse, severe calcifications within mesenteric a.m. branch vessels to major abdominal pelvic viscera. BOWEL: Faxed bases anterior abdominal wall/ rectus musculature with unremarkable loops of small bowel noted in the immediate subcutaneous space. No evidence of enteritis or colitis. APPENDIX: A normal appendix is not visualized. PERITONEUM: Unremarkable. No free fluid. No free air. Peritoneal dialysis catheter identified inserted via right upper quadrant of approach, the catheter courses through the abdomen, the tip is in the left upper quadrant. No abnormalities with respect to the visualized peritoneal dialysis catheter. LYMPH NODES: Unremarkable. No enlarged lymph nodes. BLADDER: Unremarkable. REPRODUCTIVE: Unremarkable. BONES: No acute fracture. OTHER FINDINGS: None. IMPRESSION: No acute findings related to/accounting for the clinical presentation. No significant interval change compared to the prior examination(s). New peritoneal dialysis catheter placed in the antrum since the prior study. No adverse findings. No CT evidence of peritonitis.
[2017-11-22] MEDS: Megestrol Acetate 40 mg/ml Cup PO SCH (13:44)
--- NOTE | 2017-11-22 21:33 | PN ---
DATE: 11/22/2017 DAILY PROGRESS NOTE SUBJECTIVE: The patient is afebrile. PHYSICAL EXAMINATION: VITAL SIGNS: Temperature 98.5, respiratory rate 20, pulse 85, and blood pressure 99/60. CHEST AND LUNGS: Bilateral symmetrical expansion. Good air exchange. No rales. No rhonchi. CARDIOVASCULAR SYSTEM: PMI not localized. S1, S2. No additional sounds. ABDOMEN: Normoactive bowel sounds. No tenderness. No organomegaly. No masses. EXTREMITIES: No cyanosis, no clubbing, no edema. Positive transmetatarsal amputation of the right foot. MANAGER OF BROADCAST CONTENT: Alert, awake, oriented x2. No neurological deficit could be appreciated. LABORATORY DATA: The patient had a CAT scan of the abdomen and pelvis done today that showed no acute findings related to accounting for the clinical presentation and no significant interval changes compared to the prior examination. There was new peritoneal dialysis catheter placed in the antrum since the prior study. No adverse findings and no CT evidence of peritonitis. ASSESSMENT: 1. Fever and change of mental status with mild fever. Differential diagnoses include medication effect versus Shiley catheter related infection. 2. End-stage renal disease, on hemodialysis. 3. Type 2 diabetes mellitus. 4. Coronary artery disease, PLAN: Continue current medications and antibiotics as per ID. Accu-Cheks with insulin coverage. [facility] MD Kelvin
[2017-11-22] MEDS: Insulin Detemir 100 Units/ml Inj SC SCH (23:08)
[2017-11-23] MEDS: Insulin Lispro (humaLOG) 100 Units/ml Inj SC SCH ×3 (07:30→18:18)
[2017-11-23] MEDS: Silver Sulfadiazine 1% CREAM (50 gm) TOP SCH ×2 (09:00→18:13)
[2017-11-23] MEDS: Verapamil SR 120 MG CApsule PO SCH (09:59)
[2017-11-23] MEDS: Digoxin 125 mcg (0.125 mg) Tab PO SCH (10:02)
[2017-11-23] MEDS: Megestrol Acetate 40 mg/ml Cup PO SCH (10:08)
[2017-11-23] MEDS: Omega-3-Acid Ethyl Esters 1 GM Cap PO SCH ×3 (10:08→18:10)
[2017-11-23] MEDS: Multivitamin Vitamin B Complex (Nephro-Vite) Tab PO SCH (10:11)
[2017-11-23] MEDS: Pantoprazole 40 mg EC Tab PO SCH (10:13)
[2017-11-23] MEDS: Cholecalciferol 1,000 INTLU TAB PO SCH (10:15)
--- NOTE | 2017-11-23 12:42 | CP.PCM.PN ---
Subjective - Date & Time of Evaluation Date of Evaluation: 11/23/17 Time of Evaluation: 12:40 - Subjective Subjective: Vascular Surgery - Dr. Julien Pt S&E. VICKEY. Pt with mild pain in the LLQ, unchanged from prior exam. He denies any nausea/vomiting/fevers/chills/sob/chest pain. Objective - Vital Signs/Intake and Output Vital Signs (last 24 hours): Temp Pulse Resp BP Pulse Ox 98.6 F 74 20 123/67 97 11/23/17 08:11 11/23/17 08:11 11/23/17 08:11 11/23/17 08:11 11/23/17 08:11 - Medications Medications: Current Medications Acetaminophen (Tylenol 325mg Tab) 650 mg PO Q6 PRN PRN Reason: Fever >100.4 F Acetaminophen (Tylenol 325mg Tab) 650 mg PO Q6 PRN PRN Reason: Pain, Mild (1-3) Last Admin: 11/21/17 10:12 Dose: 650 mg Alprazolam (Xanax) 0.5 mg PO Q8 PRN PRN Reason: Anxiety Apixaban (Eliquis) 2.5 mg PO Q12 [facility] PRN Reason: Protocol Last Admin: 11/23/17 10:03 Dose: 2.5 mg Atorvastatin Calcium (Lipitor) 40 mg PO HS [facility] Last Admin: 11/22/17 21:32 Dose: 40 mg Calcium Acetate (Phoslo) 667 mg PO TID [facility] Last Admin: 11/23/17 12:34 Dose: 667 mg Cholecalciferol (Vitamin D) 2,000 intlu PO DAILY [facility] Last Admin: 11/23/17 10:15 Dose: 2,000 intlu Colchicine (Colocrys) 0.6 mg PO DAILY [facility] Last Admin: 11/23/17 10:02 Dose: 0.6 mg Digoxin (Digoxin) 0.125 mg PO MWF [facility] Last Admin: 11/23/17 10:02 Dose: 0.125 mg Diphenoxylate HCl/Atropine (Lomotil 0.025-2.5 Mg Tablet) 2 tab PO Q8 PRN PRN Reason: Diarrhea Last Admin: 11/22/17 17:52 Dose: 2 tab Gabapentin (Neurontin) 300 mg PO DAILY [facility] Last Admin: 11/23/17 10:11 Dose: 300 mg Home Med (Febuxostat [Uloric]) 40 mg PO DAILY [facility] Home Med (Gabapentin Enacarbil [Horizant]) 600 mg PO [facility] Home Med (Linaclotide [Linzess]) 145 mcg PO DAILY PRN PRN Reason: Irritable bowel symptoms Ceftaroline Fosamil 200 mg/ (Sodium Chloride) 100 mls @ 100 mls/hr IVPB Q12 [facility] PRN Reason: Protocol Last Admin: 11/23/17 10:30 Dose: 100 mls/hr Insulin Detemir (Levemir) 40 units SC [facility] Last Admin: 11/22/17 23:08 Dose: 40 units Insulin Human Lispro (Humalog) 10 - 15 units SC [facility] Last Admin: 11/23/17 07:30 Dose: Not Given Lactulose (Enulose) 10 gm PO PRN PRN Reason: Constipation Megestrol Acetate (Megace) 600 mg PO DAILY [facility] Last Admin: 11/23/17 10:08 Dose: 600 mg Minoxidil (Minoxidil) 2.5 mg PO Q12 [facility] Last Admin: 11/23/17 10:10 Dose: Not Given Morphine Sulfate (Morphine) 2 mg IVP Q4 PRN PRN Reason: Pain, severe (8-10) Last Admin: 11/23/17 11:22 Dose: 2 mg [id number] Ethyl Esters (Lovaza) 1 gm PO BID [facility] Last Admin: 11/23/17 10:08 Dose: 1 gm Oxycodone/Acetaminophen (Percocet 5/325 Mg Tab) 1 tab PO Q6H PRN PRN Reason: Pain, severe (8-10) Stop: 11/25/17 00:19 Pantoprazole Sodium (Protonix Ec Tab) 40 mg PO DAILY [facility] Last Admin: 11/23/17 10:13 Dose: 40 mg Paroxetine HCl (Paxil) 10 mg PO DAILY [facility] Last Admin: 11/23/17 10:12 Dose: 10 mg Sevelamer HCl (Renagel) 1,600 mg PO TID [facility] Last Admin: 11/23/17 10:13 Dose: 1,600 mg Silver Sulfadiazine (Silvadene 1% 50 Gm) 1 applic TOP BID [facility] Last Admin: 11/22/17 17:44 Dose: 1 applic Tamsulosin HCl (Flomax) 0.4 mg PO [facility] Last Admin: 11/22/17 21:32 Dose: 0.4 mg Ticagrelor (Brilinta) 90 mg PO Q12 [facility] Last Admin: 11/23/17 09:58 Dose: 90 mg Verapamil HCl (Calan Sr Capsule) 120 mg PO DAILY [facility] Last Admin: 11/23/17 09:59 Dose: Not Given Vitamin B Complex/Vit C/Folic Acid (Nephro-Garcia) 1 tab PO DAILY [facility] Last Admin: 11/23/17 10:11 Dose: 1 tab - Labs Labs: 11/22/17 02:25 11/22/17 02:25 PT 13.7 Seconds (9.8-13.1) H 11/19/17 20:19 INR 1.2 (0.9-1.2) 11/19/17 20:19 APTT 37.1 Seconds (25.6-37.1) 11/19/17 20:19 - Constitutional Appears: Well, No Acute Distress - Head Exam Head Exam: ATRAUMATIC, NORMAL INSPECTION, NORMOCEPHALIC - Eye Exam Eye Exam: Normal appearance - ENT Exam ENT Exam: Mucous Membranes Dry - Respiratory Exam Respiratory Exam: NORMAL BREATHING PATTERN. absent: Respiratory Distress - Cardiovascular Exam Cardiovascular Exam: REGULAR RHYTHM - GI/Abdominal Exam GI & Abdominal Exam: Guarding, Soft, Tenderness (llq, + rebound), Rebound. absent: Distended, Firm, Rigid Additional comments: PD catheter site c/d/i - Neurological Exam Neurological Exam: Alert, Oriented x3 - Psychiatric Exam Psychiatric exam: Normal Affect, Normal Mood - Skin Skin Exam: Dry, Intact Assessment and Plan - Assessment and Plan (Free Text) Assessment: 52 yo M w/ ESRD on HD, recently s/p PD catheter placement, readmitted w/ weakness, poor appetite, abdominal pain -Afebrile, No leukocytosis, Catheter site without signs of infection -Peritonitis unlikely as PD catheter has not been used yet -CT abdomen pelvis shows catheter in good position, no acute abnormalities -Will F/U peritoneal fluid Cx -F/U ID Reccomendations -No surgical interventions at this time DW Dr Anaya Avila PGY4
[2017-11-23] MEDS: Insulin Detemir 100 Units/ml Inj SC SCH (21:33)
--- NOTE | 2017-11-24 07:13 | CP.PCM.PN ---
Subjective - Date & Time of Evaluation Date of Evaluation: 11/24/17 Time of Evaluation: 07:11 - Subjective Subjective: Surgery PT seen and examined. No acute events. c/o L side abd pain. Had HD yesterday. CT done yesterday. Reviewed. Denies fever, nausea, vomiting, diarrhea, CP, SOB. Objective - Vital Signs/Intake and Output Vital Signs (last 24 hours): Temp Pulse Resp BP Pulse Ox 98.5 F 77 20 106/67 95 11/24/17 01:00 11/24/17 01:00 11/24/17 01:00 11/24/17 01:00 11/24/17 01:00 - Medications Medications: Current Medications Acetaminophen (Tylenol 325mg Tab) 650 mg PO Q6 PRN PRN Reason: Fever >100.4 F Acetaminophen (Tylenol 325mg Tab) 650 mg PO Q6 PRN PRN Reason: Pain, Mild (1-3) Last Admin: 11/21/17 10:12 Dose: 650 mg Alprazolam (Xanax) 0.5 mg PO Q8 PRN PRN Reason: Anxiety Apixaban (Eliquis) 2.5 mg PO Q12 [facility] PRN Reason: Protocol Last Admin: 11/23/17 21:31 Dose: 2.5 mg Atorvastatin Calcium (Lipitor) 40 mg PO HS [facility] Last Admin: 11/23/17 21:31 Dose: 40 mg Calcium Acetate (Phoslo) 667 mg PO TID [facility] Last Admin: 11/23/17 18:10 Dose: 667 mg Cholecalciferol (Vitamin D) 2,000 intlu PO DAILY [facility] Last Admin: 11/23/17 10:15 Dose: 2,000 intlu Colchicine (Colocrys) 0.6 mg PO DAILY [facility] Last Admin: 11/23/17 10:02 Dose: 0.6 mg Digoxin (Digoxin) 0.125 mg PO MWF [facility] Last Admin: 11/23/17 10:02 Dose: 0.125 mg Diphenoxylate HCl/Atropine (Lomotil 0.025-2.5 Mg Tablet) 2 tab PO Q8 PRN PRN Reason: Diarrhea Last Admin: 11/22/17 17:52 Dose: 2 tab Gabapentin (Neurontin) 300 mg PO DAILY [facility] Last Admin: 11/23/17 10:11 Dose: 300 mg Home Med (Febuxostat [Uloric]) 40 mg PO DAILY [facility] Home Med (Gabapentin Enacarbil [Horizant]) 600 mg PO [facility] Home Med (Linaclotide [Linzess]) 145 mcg PO DAILY PRN PRN Reason: Irritable bowel symptoms Ceftaroline Fosamil 200 mg/ (Sodium Chloride) 100 mls @ 100 mls/hr IVPB Q12 [facility] PRN Reason: Protocol Last Admin: 11/23/17 21:30 Dose: 100 mls/hr Insulin Detemir (Levemir) 40 units SC [facility] Last Admin: 11/23/17 21:33 Dose: 40 units Insulin Human Lispro (Humalog) 10 - 15 units SC [facility] Last Admin: 11/23/17 18:18 Dose: Not Given Lactulose (Enulose) 10 gm PO PRN PRN Reason: Constipation Megestrol Acetate (Megace) 600 mg PO DAILY [facility] Last Admin: 11/23/17 10:08 Dose: 600 mg Minoxidil (Minoxidil) 2.5 mg PO Q12 [facility] Last Admin: 11/23/17 21:31 Dose: 2.5 mg Morphine Sulfate (Morphine) 2 mg IVP Q4 PRN PRN Reason: Pain, severe (8-10) Last Admin: 11/24/17 02:47 Dose: 2 mg [id number] Ethyl Esters (Lovaza) 1 gm PO BID [facility] Last Admin: 11/23/17 18:10 Dose: 1 gm Oxycodone/Acetaminophen (Percocet 5/325 Mg Tab) 1 tab PO Q6H PRN PRN Reason: Pain, severe (8-10) Stop: 11/25/17 00:19 Pantoprazole Sodium (Protonix Ec Tab) 40 mg PO DAILY [facility] Last Admin: 11/23/17 10:13 Dose: 40 mg Paroxetine HCl (Paxil) 10 mg PO DAILY [facility] Last Admin: 11/23/17 10:12 Dose: 10 mg Sevelamer HCl (Renagel) 1,600 mg PO TID [facility] Last Admin: 11/23/17 18:12 Dose: 1,600 mg Silver Sulfadiazine (Silvadene 1% 50 Gm) 1 applic TOP BID [facility] Last Admin: 11/23/17 18:13 Dose: 1 applic Tamsulosin HCl (Flomax) 0.4 mg PO [facility] Last Admin: 11/23/17 21:31 Dose: 0.4 mg Ticagrelor (Brilinta) 90 mg PO Q12 [facility] Last Admin: 11/23/17 21:31 Dose: 90 mg Verapamil HCl (Calan Sr Capsule) 120 mg PO DAILY [facility] Last Admin: 11/23/17 09:59 Dose: Not Given Vitamin B Complex/Vit C/Folic Acid (Nephro-Garcia) 1 tab PO DAILY [facility] Last Admin: 11/23/17 10:11 Dose: 1 tab - Labs Labs: 11/22/17 02:25 11/22/17 02:25 PT 13.7 Seconds (9.8-13.1) H 11/19/17 20:19 INR 1.2 (0.9-1.2) 11/19/17 20:19 APTT 37.1 Seconds (25.6-37.1) 11/19/17 20:19 - Constitutional Appears: No Acute Distress - Head Exam Head Exam: ATRAUMATIC, NORMAL INSPECTION, NORMOCEPHALIC - Eye Exam Eye Exam: EOMI, Normal appearance, PERRL Pupil Exam: NORMAL ACCOMODATION, PERRL - ENT Exam ENT Exam: Mucous Membranes Moist, Normal Exam - Neck Exam Neck Exam: Full ROM, Normal Inspection. absent: Lymphadenopathy - Respiratory Exam Respiratory Exam: NORMAL BREATHING PATTERN - Cardiovascular Exam Cardiovascular Exam: REGULAR RHYTHM, +S1, +S2. absent: Murmur - GI/Abdominal Exam GI & Abdominal Exam: Soft, Tenderness. absent: Distended, Firm, Guarding, Rigid , Hernia Additional comments: L abd TTP. HD catheter in place. - Rectal Exam Rectal Exam: NORMAL INSPECTION - Extremities Exam Extremities Exam: Full ROM Additional comments: multiple failed b/l AVF - Back Exam Back Exam: NORMAL INSPECTION - Neurological Exam Neurological Exam: Alert, Awake, CN II-XII Intact, Normal Gait, Oriented x3 - Psychiatric Exam Psychiatric exam: Normal Affect, Normal Mood - Skin Skin Exam: Dry, Intact, Normal Color, Warm Assessment and Plan - Assessment and Plan (Free Text) Assessment: 52 yo M w/ ESRD on HD, recently s/p PD catheter placement, readmitted w/ weakness, poor appetite, abdominal pain -Afebrile, No leukocytosis, Catheter site without signs of infection -Peritonitis unlikely as PD catheter has not been used yet -CT abdomen pelvis shows catheter in good position, no acute abnormalities -Will F/U peritoneal fluid Cx -F/U ID Reccomendations -No surgical interventions at this time DW Dr Julien
[2017-11-24] MEDS: Insulin Lispro (humaLOG) 100 Units/ml Inj SC SCH ×3 (08:50→16:57)
[2017-11-24] MEDS: Omega-3-Acid Ethyl Esters 1 GM Cap PO SCH ×2 (08:50→17:02)
[2017-11-24] MEDS: Megestrol Acetate 40 mg/ml Cup PO SCH (08:51)
[2017-11-24] MEDS: Cholecalciferol 1,000 INTLU TAB PO SCH (08:51)
[2017-11-24] MEDS: Pantoprazole 40 mg EC Tab PO SCH (08:52)
[2017-11-24] MEDS: Multivitamin Vitamin B Complex (Nephro-Vite) Tab PO SCH (08:53)
[2017-11-24] MEDS: Silver Sulfadiazine 1% CREAM (50 gm) TOP SCH ×2 (08:53→17:03)
[2017-11-24] MEDS: Verapamil SR 120 MG CApsule PO SCH (08:53)
--- NOTE | 2017-11-24 09:15 | CP.PCM.PN ---
Subjective - Date & Time of Evaluation Date of Evaluation: 11/24/17 Time of Evaluation: 09:12 - Subjective Subjective: Mr. Appiah was seen and examined at the bedside. He is awake, oriented x 2 ( time and place) but not person ( Robin Ca). He denies any headache, dizziness , follows simple commands. He is able to feed himself. There was no untoward events overnight. Objective - Vital Signs/Intake and Output Vital Signs (last 24 hours): Temp Pulse Resp BP Pulse Ox 98.4 F 87 18 127/68 95 11/24/17 08:54 11/24/17 08:54 11/24/17 08:54 11/24/17 08:54 11/24/17 01:00 - Medications Medications: Current Medications Acetaminophen (Tylenol 325mg Tab) 650 mg PO Q6 PRN PRN Reason: Fever >100.4 F Acetaminophen (Tylenol 325mg Tab) 650 mg PO Q6 PRN PRN Reason: Pain, Mild (1-3) Last Admin: 11/21/17 10:12 Dose: 650 mg Alprazolam (Xanax) 0.5 mg PO Q8 PRN PRN Reason: Anxiety Apixaban (Eliquis) 2.5 mg PO Q12 [facility] PRN Reason: Protocol Last Admin: 11/24/17 08:50 Dose: 2.5 mg Atorvastatin Calcium (Lipitor) 40 mg PO HS [facility] Last Admin: 11/23/17 21:31 Dose: 40 mg Calcium Acetate (Phoslo) 667 mg PO TID [facility] Last Admin: 11/24/17 08:51 Dose: 667 mg Cholecalciferol (Vitamin D) 2,000 intlu PO DAILY [facility] Last Admin: 11/24/17 08:51 Dose: 2,000 intlu Colchicine (Colocrys) 0.6 mg PO DAILY [facility] Last Admin: 11/24/17 08:54 Dose: 0.6 mg Digoxin (Digoxin) 0.125 mg PO MWF [facility] Last Admin: 11/23/17 10:02 Dose: 0.125 mg Diphenoxylate HCl/Atropine (Lomotil 0.025-2.5 Mg Tablet) 2 tab PO Q8 PRN PRN Reason: Diarrhea Last Admin: 11/22/17 17:52 Dose: 2 tab Gabapentin (Neurontin) 300 mg PO DAILY [facility] Last Admin: 11/24/17 08:54 Dose: 300 mg Home Med (Febuxostat [Uloric]) 40 mg PO DAILY [facility] Home Med (Gabapentin Enacarbil [Horizant]) 600 mg PO HS [facility] Home Med (Linaclotide [Linzess]) 145 mcg PO DAILY PRN PRN Reason: Irritable bowel symptoms Ceftaroline Fosamil 200 mg/ (Sodium Chloride) 100 mls @ 100 mls/hr IVPB Q12 [facility] PRN Reason: Protocol Last Admin: 11/24/17 08:57 Dose: 100 mls/hr Insulin Detemir (Levemir) 40 units SC HS [facility] Last Admin: 11/23/17 21:33 Dose: 40 units Insulin Human Lispro (Humalog) 10 - 15 units SC AC [facility] Last Admin: 11/24/17 08:50 Dose: Not Given Lactulose (Enulose) 10 gm PO HS PRN PRN Reason: Constipation Megestrol Acetate (Megace) 600 mg PO DAILY [facility] Last Admin: 11/24/17 08:51 Dose: 600 mg Minoxidil (Minoxidil) 2.5 mg PO Q12 [facility] Last Admin: 11/24/17 08:52 Dose: 2.5 mg Morphine Sulfate (Morphine) 2 mg IVP Q4 PRN PRN Reason: Pain, severe (8-10) Last Admin: 11/24/17 08:47 Dose: 2 mg [id number] Ethyl Esters (Lovaza) 1 gm PO BID [facility] Last Admin: 11/24/17 08:50 Dose: 1 gm Oxycodone/Acetaminophen (Percocet 5/325 Mg Tab) 1 tab PO Q6H PRN PRN Reason: Pain, severe (8-10) Stop: 11/25/17 00:19 Pantoprazole Sodium (Protonix Ec Tab) 40 mg PO DAILY [facility] Last Admin: 11/24/17 08:52 Dose: 40 mg Paroxetine HCl (Paxil) 10 mg PO DAILY [facility] Last Admin: 11/24/17 09:03 Dose: 10 mg Sevelamer HCl (Renagel) 1,600 mg PO TID [facility] Last Admin: 11/24/17 08:52 Dose: 1,600 mg Silver Sulfadiazine (Silvadene 1% 50 Gm) 1 applic TOP BID [facility] Last Admin: 07/12/18 08:53 Dose: 1 applic Tamsulosin HCl (Flomax) 0.4 mg PO HS [facility] Last Admin: 11/23/17 21:31 Dose: 0.4 mg Ticagrelor (Brilinta) 90 mg PO Q12 [facility] Last Admin: 11/24/17 08:54 Dose: 90 mg Verapamil HCl (Calan Sr Capsule) 120 mg PO DAILY [facility] Last Admin: 11/24/17 08:53 Dose: 120 mg Vitamin B Complex/Vit C/Folic Acid (Nephro-Garcia) 1 tab PO DAILY [facility] Last Admin: 11/24/17 08:53 Dose: 1 tab - Labs Labs: 11/22/17 02:25 11/22/17 02:25 PT 13.7 Seconds (9.8-13.1) H 11/19/17 20:19 INR 1.2 (0.9-1.2) 11/19/17 20:19 APTT 37.1 Seconds (25.6-37.1) 11/19/17 20:19 - Constitutional Appears: No Acute Distress - Head Exam Head Exam: NORMAL INSPECTION - Eye Exam Pupil Exam: PERRL - Neurological Exam Neurological Exam: Alert, Awake Neuro motor strength exam: Left Upper Extremity: 4, Right Upper Extremity: 4, Left Lower Extremity: 3, Right Lower Extremity: 3 Additional comments: awake, oriented x 2, follows simple commands. sensation is intact. Assessment and Plan (1) Encephalopathy Assessment & Plan: Continue all current medical regimen. Pending MRI of the brain without contrast , may give seroquel 25 mg PO 1 hour prior to MRI. Status: Acute
--- NOTE | 2017-11-24 14:15 | CP.PCM.PN ---
Subjective - Date & Time of Evaluation Date of Evaluation: 11/24/17 Time of Evaluation: 13:00 - Subjective Subjective: Patient was seen and examined at bedside today. The hospitalist is covering for Dr. Warren. The patient is complaining of some abdominal pain on the left side which is not new. Denies fever, nausea, vomiting, diarrhea, CP, SOB. Objective - Vital Signs/Intake and Output Vital Signs (last 24 hours): Temp Pulse Resp BP Pulse Ox 98.4 F 87 18 127/68 95 11/24/17 08:54 11/24/17 08:54 11/24/17 08:54 11/24/17 08:54 11/24/17 01:00 - Medications Medications: Current Medications Acetaminophen (Tylenol 325mg Tab) 650 mg PO Q6 PRN PRN Reason: Fever >100.4 F Acetaminophen (Tylenol 325mg Tab) 650 mg PO Q6 PRN PRN Reason: Pain, Mild (1-3) Last Admin: 11/21/17 10:12 Dose: 650 mg Alprazolam (Xanax) 0.5 mg PO Q8 PRN PRN Reason: Anxiety Apixaban (Eliquis) 2.5 mg PO Q12 [facility] PRN Reason: Protocol Last Admin: 11/24/17 08:50 Dose: 2.5 mg Atorvastatin Calcium (Lipitor) 40 mg PO HS [facility] Last Admin: 11/23/17 21:31 Dose: 40 mg Calcium Acetate (Phoslo) 667 mg PO TID [facility] Last Admin: 11/24/17 13:00 Dose: 667 mg Cholecalciferol (Vitamin D) 2,000 intlu PO DAILY [facility] Last Admin: 11/24/17 08:51 Dose: 2,000 intlu Colchicine (Colocrys) 0.6 mg PO DAILY [facility] Last Admin: 11/24/17 08:54 Dose: 0.6 mg Digoxin (Digoxin) 0.125 mg PO MWF [facility] Last Admin: 11/23/17 10:02 Dose: 0.125 mg Diphenoxylate HCl/Atropine (Lomotil 0.025-2.5 Mg Tablet) 2 tab PO Q8 PRN PRN Reason: Diarrhea Last Admin: 11/22/17 17:52 Dose: 2 tab Gabapentin (Neurontin) 300 mg PO DAILY [facility] Last Admin: 11/24/17 08:54 Dose: 300 mg Home Med (Febuxostat [Uloric]) 40 mg PO DAILY [facility] Home Med (Gabapentin Enacarbil [Horizant]) 600 mg PO [facility] Home Med (Linaclotide [Linzess]) 145 mcg PO DAILY PRN PRN Reason: Irritable bowel symptoms Ceftaroline Fosamil 200 mg/ (Sodium Chloride) 100 mls @ 100 mls/hr IVPB Q12 [facility] PRN Reason: Protocol Last Admin: 11/24/17 08:57 Dose: 100 mls/hr Insulin Detemir (Levemir) 40 units SC [facility] Last Admin: 11/23/17 21:33 Dose: 40 units Insulin Human Lispro (Humalog) 10 - 15 units SC [facility] Last Admin: 11/24/17 12:03 Dose: Not Given Lactulose (Enulose) 10 gm PO HS PRN PRN Reason: Constipation Megestrol Acetate (Megace) 600 mg PO DAILY [facility] Last Admin: 11/24/17 08:51 Dose: 600 mg Minoxidil (Minoxidil) 2.5 mg PO Q12 [facility] Last Admin: 11/24/17 08:52 Dose: 2.5 mg Morphine Sulfate (Morphine) 2 mg IVP Q4 PRN PRN Reason: Pain, severe (8-10) Last Admin: 11/24/17 13:15 Dose: 2 mg [id number]-9-Llgy Ethyl Esters (Lovaza) 1 gm PO BID [facility] Last Admin: 11/24/17 08:50 Dose: 1 gm Oxycodone/Acetaminophen (Percocet 5/325 Mg Tab) 1 tab PO Q6H PRN PRN Reason: Pain, severe (8-10) Stop: 11/25/17 00:19 Pantoprazole Sodium (Protonix Ec Tab) 40 mg PO DAILY [facility] Last Admin: 11/24/17 08:52 Dose: 40 mg Paroxetine HCl (Paxil) 10 mg PO DAILY [facility] Last Admin: 11/24/17 09:03 Dose: 10 mg Sevelamer HCl (Renagel) 1,600 mg PO TID [facility] Last Admin: 11/24/17 13:00 Dose: 1,600 mg Silver Sulfadiazine (Silvadene 1% 50 Gm) 1 applic TOP BID [facility] Last Admin: 11/24/17 08:53 Dose: 1 applic Tamsulosin HCl (Flomax) 0.4 mg PO HS [facility] Last Admin: 11/23/17 21:31 Dose: 0.4 mg Ticagrelor (Brilinta) 90 mg PO Q12 [facility] Last Admin: 11/24/17 08:54 Dose: 90 mg Verapamil HCl (Calan Sr Capsule) 120 mg PO DAILY [facility] Last Admin: 11/24/17 08:53 Dose: 120 mg Vitamin B Complex/Vit C/Folic Acid (Nephro-Garcia) 1 tab PO DAILY [facility] Last Admin: 11/24/17 08:53 Dose: 1 tab - Labs Labs: 11/22/17 02:25 11/22/17 02:25 PT 13.7 Seconds (9.8-13.1) H 11/19/17 20:19 INR 1.2 (0.9-1.2) 11/19/17 20:19 APTT 37.1 Seconds (25.6-37.1) 11/19/17 20:19 - Additional Findings Additional findings: Physical exam: Constitutional- cooperative, awake, alert Head- NCAT, PERRL Eye- PERRL, EOMI ENT- normal exam, MMM. Neck- normal inspection, supple, no JVD Respiratory- CTAB, no wheezes rales rhonchi Cardiovascular- RRR, +S1, +S2 no MRG GI/Abdominal- normal bowel sounds, soft, no mass, no hsm +Left groin Shiley catheter in place, no evidence of surrounding infection or cellulitis Skin- warm, dry Extremities Exam- normal capillary refill, normal inspection Neurological Exam- alert, awake, oriented Psych- normal mood, normal affect Assessment and Plan - Assessment and Plan (Free Text) Plan: This is a 52 year old male with pmh of ESRD on dialysis MWF, recently s/p PD catheter placement, who was readmitted from [facility] due to weakness, left sided abdominal pain, failure to thrive, and poor appetite. 1) Fever and altered mental status change, ddx: Shiley catheter infection vs medication effect - Dr. Julien on consult- thinks that Catheter infection is less likely as the patient only had the catheter used for the first time on 11/23 - Dr. Joyce on consultation- recommends continuing IV Teflaro (HD dose) for coag neg staph bacteremia - blood cx from HD line 11/20/2017- coag neg staph x 1 - blood cx from 11/19/2017- neg x 3 (peripheral) - Check TTE to r/o vegetations - CT A/P negative for peritonitis - MRI pending for AMS 2) ESRD on hemodialysis MWF - Dr. Pinto on consultation - continue current medications 3) Type 2 DM - Continue current insulin regimen - controlled 4) CAD - continue current statin, other cardiac meds 5) DVT prophylaxis - Brant
--- NOTE | 2017-11-24 14:40 | CP.PCM.PN ---
Subjective - Date & Time of Evaluation Date of Evaluation: 11/24/17 Time of Evaluation: 14:40 - Subjective Subjective: ID note- pt. seen and examined today. no new events overnight. afebrile. Objective - Vital Signs/Intake and Output Vital Signs (last 24 hours): Temp Pulse Resp BP Pulse Ox 98.4 F 87 18 127/68 95 11/24/17 08:54 11/24/17 08:54 11/24/17 08:54 11/24/17 08:54 11/24/17 01:00 - Medications Medications: Current Medications Acetaminophen (Tylenol 325mg Tab) 650 mg PO Q6 PRN PRN Reason: Fever >100.4 F Acetaminophen (Tylenol 325mg Tab) 650 mg PO Q6 PRN PRN Reason: Pain, Mild (1-3) Last Admin: 11/21/17 10:12 Dose: 650 mg Alprazolam (Xanax) 0.5 mg PO Q8 PRN PRN Reason: Anxiety Apixaban (Eliquis) 2.5 mg PO Q12 [facility] PRN Reason: Protocol Last Admin: 11/24/17 08:50 Dose: 2.5 mg Atorvastatin Calcium (Lipitor) 40 mg PO [facility] Last Admin: 11/23/17 21:31 Dose: 40 mg Calcium Acetate (Phoslo) 667 mg PO TID [facility] Last Admin: 11/24/17 13:00 Dose: 667 mg Cholecalciferol (Vitamin D) 2,000 intlu PO DAILY [facility] Last Admin: 11/24/17 08:51 Dose: 2,000 intlu Colchicine (Colocrys) 0.6 mg PO DAILY [facility] Last Admin: 11/24/17 08:54 Dose: 0.6 mg Digoxin (Digoxin) 0.125 mg PO MWF [facility] Last Admin: 11/23/17 10:02 Dose: 0.125 mg Diphenoxylate HCl/Atropine (Lomotil 0.025-2.5 Mg Tablet) 2 tab PO Q8 PRN PRN Reason: Diarrhea Last Admin: 11/22/17 17:52 Dose: 2 tab Gabapentin (Neurontin) 300 mg PO DAILY [facility] Last Admin: 11/24/17 08:54 Dose: 300 mg Home Med (Febuxostat [Uloric]) 40 mg PO DAILY [facility] Home Med (Gabapentin Enacarbil [Horizant]) 600 mg PO HS [facility] Home Med (Linaclotide [Linzess]) 145 mcg PO DAILY PRN PRN Reason: Irritable bowel symptoms Ceftaroline Fosamil 200 mg/ (Sodium Chloride) 100 mls @ 100 mls/hr IVPB Q12 [facility] PRN Reason: Protocol Last Admin: 11/24/17 08:57 Dose: 100 mls/hr Insulin Detemir (Levemir) 40 units SC HS [facility] Last Admin: 11/23/17 21:33 Dose: 40 units Insulin Human Lispro (Humalog) 10 - 15 units SC AC [facility] Last Admin: 11/24/17 12:03 Dose: Not Given Lactulose (Enulose) 10 gm PO HS PRN PRN Reason: Constipation Megestrol Acetate (Megace) 600 mg PO DAILY [facility] Last Admin: 11/24/17 08:51 Dose: 600 mg Minoxidil (Minoxidil) 2.5 mg PO Q12 [facility] Last Admin: 11/24/17 08:52 Dose: 2.5 mg Morphine Sulfate (Morphine) 2 mg IVP Q4 PRN PRN Reason: Pain, severe (8-10) Last Admin: 11/24/17 13:15 Dose: 2 mg Qhdqq-4-Foaz Ethyl Esters (Lovaza) 1 gm PO BID [facility] Last Admin: 11/24/17 08:50 Dose: 1 gm Oxycodone/Acetaminophen (Percocet 5/325 Mg Tab) 1 tab PO Q6H PRN PRN Reason: Pain, severe (8-10) Stop: 11/25/17 00:19 Pantoprazole Sodium (Protonix Ec Tab) 40 mg PO DAILY [facility] Last Admin: 11/24/17 08:52 Dose: 40 mg Paroxetine HCl (Paxil) 10 mg PO DAILY [facility] Last Admin: 11/24/17 09:03 Dose: 10 mg Sevelamer HCl (Renagel) 1,600 mg PO TID [facility] Last Admin: 11/24/17 13:00 Dose: 1,600 mg Silver Sulfadiazine (Silvadene 1% 50 Gm) 1 applic TOP BID [facility] Last Admin: 11/24/17 08:53 Dose: 1 applic Tamsulosin HCl (Flomax) 0.4 mg PO HS [facility] Last Admin: 11/23/17 21:31 Dose: 0.4 mg Ticagrelor (Brilinta) 90 mg PO Q12 [facility] Last Admin: 11/24/17 08:54 Dose: 90 mg Verapamil HCl (Calan Sr Capsule) 120 mg PO DAILY [facility] Last Admin: 11/24/17 08:53 Dose: 120 mg Vitamin B Complex/Vit C/Folic Acid (Nephro-Garcia) 1 tab PO DAILY [facility] Last Admin: 11/24/17 08:53 Dose: 1 tab - Labs Labs: - Additional Findings Additional findings: Constitutional Appears: No Acute Distress - Head Exam Head Exam: ATRAUMATIC - ENT Exam ENT Exam: Normal Oropharynx - Neck Exam Neck exam: Positive for: Full Rom - Respiratory Exam Respiratory Exam: Clear to Auscultation Bilateral, NORMAL BREATHING PATTERN - Cardiovascular Exam Cardiovascular Exam: RRR, +S1, +S2 - GI/Abdominal Exam GI & Abdominal Exam: Normal Bowel Sounds, Soft Additional comments: NT, ND PD catheter in place (not used yet) - Extremities Exam Additional comments: no edema - Neurological Exam Neurological exam: Alert, Oriented x 3 Laboratory Results - last 72 hr 11/21/17 11/22/17 11/22/17 21:43 02:25 02:25 WBC 5.9 RBC 4.80 Hgb 12.7 Hct 38.8 MCV 80.8 MCH 26.5 L MCHC 32.8 L RDW 16.1 H Plt Count 209 Sodium Potassium 3.6 Chloride Carbon Dioxide Anion Gap BUN Creatinine Est GFR ( Amer) Est GFR (Non-Af Amer) POC Glucose (mg/dL) 125 H Random Glucose Calcium Total Bilirubin AST ALT Alkaline Phosphatase Ammonia Total Protein Albumin Globulin Albumin/Globulin Ratio 11/22/17 11/22/17 11/22/17 02:25 02:25 05:27 WBC RBC Hgb Hct MCV MCH MCHC RDW Plt Count Sodium 141 Potassium 3.6 Chloride 94 L Carbon Dioxide 28 Anion Gap 23 H BUN 19 Creatinine 8.4 H* D Est GFR ( Amer) 8 Est GFR (Non-Af Amer) 7 POC Glucose (mg/dL) 139 H Random Glucose 124 H Calcium 9.9 Total Bilirubin 1.0 AST 54 ALT 22 Alkaline Phosphatase 306 H D Ammonia < 9 L Total Protein 9.7 H Albumin 4.9 Globulin 4.8 H Albumin/Globulin Ratio 1.0 11/22/17 11/22/17 11/22/17 11:13 15:49 21:17 WBC RBC Hgb Hct MCV MCH MCHC RDW Plt Count Sodium Potassium Chloride Carbon Dioxide Anion Gap BUN Creatinine Est GFR ( Amer) Est GFR (Non-Af Amer) POC Glucose (mg/dL) 107 106 107 Random Glucose Calcium Total Bilirubin AST ALT Alkaline Phosphatase Ammonia Total Protein Albumin Globulin Albumin/Globulin Ratio 11/23/17 11/23/17 11/23/17 05:28 10:50 15:44 WBC RBC Hgb Hct MCV MCH MCHC RDW Plt Count Sodium Potassium Chloride Carbon Dioxide Anion Gap BUN Creatinine Est GFR ( Amer) Est GFR (Non-Af Amer) POC Glucose (mg/dL) 100 83 87 Random Glucose Calcium Total Bilirubin AST ALT Alkaline Phosphatase Ammonia Total Protein Albumin Globulin Albumin/Globulin Ratio 11/23/17 11/24/17 11/24/17 21:43 06:07 11:33 WBC RBC Hgb Hct MCV MCH MCHC RDW Plt Count Sodium Potassium Chloride Carbon Dioxide Anion Gap BUN Creatinine Est GFR ( Amer) Est GFR (Non-Af Amer) POC Glucose (mg/dL) 99 86 104 Random Glucose Calcium Total Bilirubin AST ALT Alkaline Phosphatase Ammonia Total Protein Albumin Globulin Albumin/Globulin Ratio 11/24/17 16:10 WBC RBC Hgb Hct MCV MCH MCHC RDW Plt Count Sodium Potassium Chloride Carbon Dioxide Anion Gap BUN Creatinine Est GFR ( Amer) Est GFR (Non-Af Amer) POC Glucose (mg/dL) 130 H Random Glucose Calcium Total Bilirubin AST ALT Alkaline Phosphatase Ammonia Total Protein Albumin Globulin Albumin/Globulin Ratio Microbiology 11/22/17 15:15 Peritoneal Fluid Gram Stain - Final 11/22/17 15:15 Peritoneal Fluid Body Fluid Culture - Preliminary NO GROWTH AFTER 2 DAYS 11/19/17 23:10 Blood Blood Culture - Preliminary NO GROWTH AFTER 4 DAYS 11/19/17 23:10 Blood Blood Culture - Preliminary NO GROWTH AFTER 4 DAYS 11/19/17 20:19 Blood Blood Culture - Preliminary NO GROWTH AFTER 4 DAYS 11/20/17 10:30 Blood-Thru Central Line S.aureus & Coag-Neg Staph PNA FISH - Final 11/20/17 10:30 Blood-Thru Central Line Blood Culture - Final Coagulase Neg Staphylococcus 11/20/17 10:30 Blood-Thru Central Line Gram Stain - Final 11/20/17 10:00 Urine Urine Culture - Final No Growth (<1,000 CFU/ML) Assessment and Plan (1) Fever in adult Status: Acute (2) AV shunt malfunction Status: Acute - Assessment and Plan (Free Text) Assessment: A/P- 52 year old male with ESRD oN HD who was recently d/c to [place] readmitted with low garde fever and AMS. afebrile today. normal wbc count AMS has resolved now. Brain CT - as per report negative CXR- no active disease as per report. wrist xray- negative as per report abd /pelvic CT- no evidence of peritonitis as per report blood cx from HD line 11/20/2017- coag neg staph x 1 blood cx from 11/19/2017- neg x 3 (peripheral) plan- advise to continue with IV teflaro ( HD Dose) for coag neg staph bactermia. day #5. check 2 more blood cx for the HD catheter. check TTE r/o vegetations.
[2017-11-24] MEDS: Insulin Detemir 100 Units/ml Inj SC SCH (21:45)
[2017-11-25] MEDS ORDERED: Oxycodone/Acetaminophen 5/325 mg Tab PO ONE ×2 (02:56→04:14)
[2017-11-25 06:25] LABS: HEMOGLOBIN 11.3 g/dL (12.0-18.0); MEAN CELL VOLUME 81.3 fl (80.0-94.0); MEAN CORPUSCULAR HEMOGLOBIN 26.4 pg (27.0-31.0); MEAN CORPUSCULAR HGB CONC 32.5 g/dL (33.0-37.0); RBC 4.29 Mil/uL (4.40-5.90); RED CELL DISTRIBUTION WIDTH 15.9 % (11.5-14.5); WHITE BLOOD COUNT 8.7 K/uL (4.8-10.8)
[2017-11-25 06:56] LABS: ALBUMIN 4.2 g/dL (3.5-5.0); CALCIUM 11.2 mg/dL (8.4-10.2)
[2017-11-25 06:57] LABS: ALB/GLOB RATIO 1.1 (1.0-2.1)
--- NOTE | 2017-11-25 07:52 | CP.PCM.PN ---
Subjective - Date & Time of Evaluation Date of Evaluation: 11/25/17 Time of Evaluation: 07:50 - Subjective Subjective: Surgery Pt seen and examined. No acute events. Resting comfortably Objective - Vital Signs/Intake and Output Vital Signs (last 24 hours): Temp Pulse Resp BP Pulse Ox 98.6 F 87 19 116/69 97 11/25/17 00:00 11/25/17 00:00 11/25/17 00:00 11/25/17 00:00 11/25/17 00:00 - Medications Medications: Current Medications Acetaminophen (Tylenol 325mg Tab) 650 mg PO Q6 PRN PRN Reason: Fever >100.4 F Acetaminophen (Tylenol 325mg Tab) 650 mg PO Q6 PRN PRN Reason: Pain, Mild (1-3) Last Admin: 11/21/17 10:12 Dose: 650 mg Alprazolam (Xanax) 0.5 mg PO Q8 PRN PRN Reason: Anxiety Apixaban (Eliquis) 2.5 mg PO Q12 [facility] PRN Reason: Protocol Last Admin: 11/24/17 21:44 Dose: 2.5 mg Atorvastatin Calcium (Lipitor) 40 mg PO HS [facility] Last Admin: 11/24/17 21:45 Dose: 40 mg Calcium Acetate (Phoslo) 667 mg PO TID [facility] Last Admin: 11/24/17 17:03 Dose: 667 mg Cholecalciferol (Vitamin D) 2,000 intlu PO DAILY [facility] Last Admin: 11/24/17 08:51 Dose: 2,000 intlu Digoxin (Digoxin) 0.125 mg PO MWF [facility] Last Admin: 11/23/17 10:02 Dose: 0.125 mg Diphenoxylate HCl/Atropine (Lomotil 0.025-2.5 Mg Tablet) 2 tab PO Q8 PRN PRN Reason: Diarrhea Last Admin: 11/22/17 17:52 Dose: 2 tab Gabapentin (Neurontin) 300 mg PO DAILY [facility] Last Admin: 11/24/17 08:54 Dose: 300 mg Home Med (Febuxostat [Uloric]) 40 mg PO DAILY [facility] Ceftaroline Fosamil 200 mg/ (Sodium Chloride) 100 mls @ 100 mls/hr IVPB Q12 [facility] PRN Reason: Protocol Last Admin: 11/24/17 21:44 Dose: 100 mls/hr Insulin Detemir (Levemir) 40 units SC HS [facility] Last Admin: 11/24/17 21:45 Dose: 40 units Insulin Human Lispro (Humalog) 10 - 15 units SC AC [facility] Last Admin: 11/24/17 16:57 Dose: Not Given Lactulose (Enulose) 10 gm PO HS PRN PRN Reason: Constipation Minoxidil (Minoxidil) 2.5 mg PO Q12 [facility] Last Admin: 11/24/17 21:45 Dose: 2.5 mg Invuy-3-Tjft Ethyl Esters (Lovaza) 1 gm PO BID [facility] Last Admin: 11/24/17 17:02 Dose: 1 gm Pantoprazole Sodium (Protonix Ec Tab) 40 mg PO DAILY [facility] Last Admin: 11/24/17 08:52 Dose: 40 mg Sevelamer HCl (Renagel) 1,600 mg PO TID [facility] Last Admin: 11/24/17 17:02 Dose: 1,600 mg Silver Sulfadiazine (Silvadene 1% 50 Gm) 1 applic TOP BID [facility] Last Admin: 11/24/17 17:03 Dose: 1 applic Ticagrelor (Brilinta) 90 mg PO Q12 [facility] Last Admin: 11/24/17 21:44 Dose: 90 mg Verapamil HCl (Calan Sr Capsule) 120 mg PO DAILY [facility] Last Admin: 11/24/17 08:53 Dose: 120 mg Vitamin B Complex/Vit C/Folic Acid (Nephro-Garcia) 1 tab PO DAILY [facility] Last Admin: 11/24/17 08:53 Dose: 1 tab - Labs Labs: 11/25/17 05:40 11/25/17 05:40 PT 13.7 Seconds (9.8-13.1) H 11/19/17 20:19 INR 1.2 (0.9-1.2) 11/19/17 20:19 APTT 37.1 Seconds (25.6-37.1) 11/19/17 20:19 - Constitutional Appears: No Acute Distress - Head Exam Head Exam: ATRAUMATIC, NORMAL INSPECTION, NORMOCEPHALIC - Eye Exam Eye Exam: EOMI, Normal appearance, PERRL Pupil Exam: NORMAL ACCOMODATION, PERRL - ENT Exam ENT Exam: Mucous Membranes Moist - Neck Exam Neck Exam: Normal Inspection - Respiratory Exam Respiratory Exam: NORMAL BREATHING PATTERN - Cardiovascular Exam Cardiovascular Exam: REGULAR RHYTHM - GI/Abdominal Exam GI & Abdominal Exam: Soft, Tenderness. absent: Distended Additional comments: PD cath in place. no signs of infection - Extremities Exam Extremities Exam: Full ROM - Back Exam Back Exam: NORMAL INSPECTION - Skin Skin Exam: Dry, Intact, Normal Color, Warm Assessment and Plan - Assessment and Plan (Free Text) Assessment: 52 yo M w/ ESRD on HD, recently s/p PD catheter placement, readmitted w/ weakness, poor appetite, abdominal pain: improving -Afebrile, No leukocytosis, PD Catheter site without signs of infection -Peritonitis unlikely as PD catheter has not been used yet -OK to start using PD cath -CT abdomen pelvis shows catheter in good position, no acute abnormalities -Will F/U peritoneal fluid Cx -F/U ID Reccomendations: Teflaro for Blood cx staph growth, f/u JAY -No surgical interventions at this time Will LORENZO Julien
[2017-11-25] MEDS: Insulin Lispro (humaLOG) 100 Units/ml Inj SC SCH ×3 (08:12→16:50)
--- NOTE | 2017-11-25 08:37 | CP.PCM.PN ---
Subjective - Date & Time of Evaluation Date of Evaluation: 11/25/17 Time of Evaluation: 08:36 - Subjective Subjective: PT STABLE COMPLAINING OF PAIN HIGH DOSE TYLENOL GIVEN HD STABLE NAD Objective - Vital Signs/Intake and Output Vital Signs (last 24 hours): Temp Pulse Resp BP Pulse Ox 98.8 F 80 20 109/64 96 11/25/17 08:06 11/25/17 08:06 11/25/17 08:06 11/25/17 08:06 11/25/17 08:06 Vitals Reviewed GEN: WDWN, alert, cooperative HEENT: NCAT, PERRL, EOMI HEART: RRR, +S1S2, NO MRG LUNG: CTAB, NO WRR ABD: soft, NT, ND, No HSM, No masses EXT: normal pedal pulses, normal capillary refill NEURO: awake, alert SKIN: warm, dry PSYCH: normal mood, normal affect - Medications Medications: Current Medications Acetaminophen (Tylenol 325mg Tab) 650 mg PO Q6 PRN PRN Reason: Fever >100.4 F Acetaminophen (Tylenol 325mg Tab) 650 mg PO Q6 PRN PRN Reason: Pain, Mild (1-3) Last Admin: 11/21/17 10:12 Dose: 650 mg Alprazolam (Xanax) 0.5 mg PO Q8 PRN PRN Reason: Anxiety Apixaban (Eliquis) 2.5 mg PO Q12 [facility] PRN Reason: Protocol Last Admin: 11/24/17 21:44 Dose: 2.5 mg Atorvastatin Calcium (Lipitor) 40 mg PO HS [facility] Last Admin: 11/24/17 21:45 Dose: 40 mg Calcium Acetate (Phoslo) 667 mg PO TID [facility] Last Admin: 11/24/17 17:03 Dose: 667 mg Cholecalciferol (Vitamin D) 2,000 intlu PO DAILY [facility] Last Admin: 11/24/17 08:51 Dose: 2,000 intlu Digoxin (Digoxin) 0.125 mg PO MWF [facility] Last Admin: 11/23/17 10:02 Dose: 0.125 mg Diphenoxylate HCl/Atropine (Lomotil 0.025-2.5 Mg Tablet) 2 tab PO Q8 PRN PRN Reason: Diarrhea Last Admin: 11/22/17 17:52 Dose: 2 tab Gabapentin (Neurontin) 300 mg PO DAILY [facility] Last Admin: 11/24/17 08:54 Dose: 300 mg Home Med (Febuxostat [Uloric]) 40 mg PO DAILY [facility] Ceftaroline Fosamil 200 mg/ (Sodium Chloride) 100 mls @ 100 mls/hr IVPB Q12 [facility] PRN Reason: Protocol Last Admin: 11/24/17 21:44 Dose: 100 mls/hr Insulin Detemir (Levemir) 40 units SC HS [facility] Last Admin: 11/24/17 21:45 Dose: 40 units Insulin Human Lispro (Humalog) 10 - 15 units SC AC [facility] Last Admin: 11/25/17 08:12 Dose: Not Given Lactulose (Enulose) 10 gm PO HS PRN PRN Reason: Constipation Minoxidil (Minoxidil) 2.5 mg PO Q12 [facility] Last Admin: 11/24/17 21:45 Dose: 2.5 mg Fnvid-3-Ehrw Ethyl Esters (Lovaza) 1 gm PO BID [facility] Last Admin: 11/24/17 17:02 Dose: 1 gm Pantoprazole Sodium (Protonix Ec Tab) 40 mg PO DAILY [facility] Last Admin: 11/24/17 08:52 Dose: 40 mg Sevelamer HCl (Renagel) 1,600 mg PO TID [facility] Last Admin: 11/24/17 17:02 Dose: 1,600 mg Silver Sulfadiazine (Silvadene 1% 50 Gm) 1 applic TOP BID [facility] Last Admin: 11/24/17 17:03 Dose: 1 applic Ticagrelor (Brilinta) 90 mg PO Q12 [facility] Last Admin: 11/24/17 21:44 Dose: 90 mg Verapamil HCl (Calan Sr Capsule) 120 mg PO DAILY [facility] Last Admin: 11/24/17 08:53 Dose: 120 mg Vitamin B Complex/Vit C/Folic Acid (Nephro-Garcia) 1 tab PO DAILY [facility] Last Admin: 11/24/17 08:53 Dose: 1 tab - Labs Labs: 11/25/17 05:40 11/25/17 05:40 PT 13.7 Seconds (9.8-13.1) H 11/19/17 20:19 INR 1.2 (0.9-1.2) 11/19/17 20:19 APTT 37.1 Seconds (25.6-37.1) 11/19/17 20:19 Assessment and Plan - Assessment and Plan (Free Text) Plan: This is a 52 year old male with pmh of ESRD on dialysis MWF, recently s/p PD catheter placement, who was readmitted from [facility] due to weakness, left sided abdominal pain, failure to thrive, and poor appetite. 1) Fever and altered mental status change, ddx: Shiley catheter infection vs medication effect - Dr. Julien on consult- thinks that Catheter infection is less likely as the patient only had the catheter used for the first time on 11/23, PER SURGERY, CATH MAY BE USED. - Dr. Joyce on consultation- recommends continuing IV Teflaro (HD dose) for coag neg staph bacteremia - blood cx from HD line 11/20/2017- coag neg staph x 1 - blood cx from 11/19/2017- neg x 3 (peripheral) - Check TTE to r/o vegetations - CT A/P negative for peritonitis - MRI pending for AMS 2) ESRD on hemodialysis MWF - Dr. Pinto on consultation - continue current medications 3) Type 2 DM - Continue current insulin regimen - controlled 4) CAD - continue current statin, other cardiac meds 5) DVT prophylaxis - Barnt
[2017-11-25] MEDS: Multivitamin Vitamin B Complex (Nephro-Vite) Tab PO SCH (08:40)
[2017-11-25] MEDS: Cholecalciferol 1,000 INTLU TAB PO SCH (08:40)
[2017-11-25] MEDS: Verapamil SR 120 MG CApsule PO SCH (08:40)
[2017-11-25] MEDS: Omega-3-Acid Ethyl Esters 1 GM Cap PO SCH ×2 (08:41→16:56)
[2017-11-25] MEDS: Digoxin 125 mcg (0.125 mg) Tab PO SCH (08:41)
[2017-11-25] MEDS: Pantoprazole 40 mg EC Tab PO SCH (08:41)
[2017-11-25] MEDS: Silver Sulfadiazine 1% CREAM (50 gm) TOP SCH ×2 (08:42→16:55)
--- NOTE | 2017-11-25 11:30 | MRI ---
Date of service: 11/25/2017 PROCEDURE: MRI BRAIN WITHOUT CONTRAST HISTORY: Altered mental status COMPARISON: Comparison is made to the previous study dated 08/05/2007 TECHNIQUE: Multiplanar, multisequence MR images of the brain were obtained without intravenous contrast enhancement. FINDINGS: HEMORRHAGE: None DWI: No evidence of an acute or early subacute infarction. BRAIN PARENCHYMA: No mass effect or edema. There are few scattered nonspecific foci of hyperintense T2 and FLAIR signal in the white matter likely represent chronic microvascular ischemic disease. These findings are new compared to the previous exam. VENTRICLES: Unremarkable. No hydrocephalus. CRANIUM: Unremarkable. ORBITS: Grossly unremarkable. PARANASAL SINUSES/MASTOIDS: Mild sinuses mucosal thickening. There are foci of hyperintense T2 signal in the mastoids may represent mastoid effusion. VASCULAR SYSTEM: Skull base flow voids intact. OTHER FINDINGS: None. IMPRESSION: This study degraded due to motion artifact. No evidence of acute infarction mass effect or midline shift. Nonspecific few small foci of hyperintense T2 and FLAIR signal in the white matter likely represent chronic microvascular ischemic disease.
--- NOTE | 2017-11-25 12:46 | CARD ---
APPROVED REPORT Date of service: 11/25/2017 EXAM: Two-dimensional and M-mode echocardiogram with Doppler and color Doppler. Other Information Quality : GoodRhythm : NSR INDICATION Infection:Subacute bacterial endocarditis 2D DIMENSIONS IVSd1.21 (0.7-1.1cm)LVDd2.99 (3.9-5.9cm) LVOT Diameter1.96 (1.8-2.4cm)PWd1.34 (0.7-1.1cm) IVSs1.41 (0.8-1.2cm)LVDs2.08 (2.5-4.0cm) FS (%) 30.7 %PWs1.51 (0.8-1.2cm) M-Mode DIMENSIONS Left Atrium (MM)5.03 (2.5-4.0cm)IVSd1.22 (0.7-1.1cm) Aortic Root3.00 (2.2-3.7cm)LVDd4.22 (4.0-5.6cm) Aortic Cusp Exc.1.91 (1.5-2.0cm)PWd1.56 (0.7-1.1cm) IVSs1.91 cmFS (%) 59 % LVDs1.72 (2.0-3.8cm)PWs1.66 cm Aortic Valve AoV Peak Gyrjtovb045.6cm/sAoV VTI26.0cmAO Peak GR.12mmHg LVOT Peak Iygrxpdo418.9cm/sLVOT VTI19.65cmAO Mean GR.7mmHg [place] (VMAX)0.68lq8ZVS (VTI)1.08cm2 Mitral Valve MV E Tzneljkn15.3cm/sMV DECEL [id number] A Rhddjqwa70.9cm/s MV QWZ42nrJ/A ratio1.6MVA (PHT)2.46cm2 TDI Lateral E' Peak V11.81cm/sMedial E' Peak V5.62cm/sE/Lateral E'6.1 E/Medial E'12.9 Tricuspid Valve TR Peak Xepmvvjd121mq/sRAP [id number] Peak Gr.20mmHg [id number] LEFT VENTRICLE The left ventricle is normal size. There is borderline concentric left ventricular hypertrophy. The left ventricular function is normal. The left ventricular ejection fraction is within the normal range. The Ejection Fraction is 60-65%. There is normal LV segmental wall motion. The left ventricular diastolic function is normal. RIGHT VENTRICLE The right ventricle is normal size. The right ventricular systolic function is normal. ATRIA The left atrium is borderline dilated. The right atrium size is normal. AORTIC VALVE The aortic valve is normal in structure. No aortic regurgitation is present. There is no aortic valvular stenosis. There is no aortic valvular vegetation. MITRAL VALVE The mitral valve is normal in structure. There is no evidence of mitral valve prolapse. There is no mitral valve stenosis. There is no mitral valve regurgitation noted. TRICUSPID VALVE The tricuspid valve is normal in structure. There is trace tricuspid regurgitation. There is no tricuspid valve prolapse or vegetation. PULMONIC VALVE The pulmonary valve is normal in structure. There is no pulmonic valvular regurgitation. GREAT VESSELS The aortic root is normal in size. The IVC is normal in size and collapses >50% with inspiration. PERICARDIAL EFFUSION The pericardium appears normal. <Conclusion> The left ventricular function is normal. The left ventricular ejection fraction is within the normal range. The Ejection Fraction is 60-65%. There is borderline concentric left ventricular hypertrophy. The left ventricular diastolic function is normal. There is trace tricuspid regurgitation. No vegetations on any of the valves.
[2017-11-25] MEDS: Insulin Detemir 100 Units/ml Inj SC SCH (22:31)
--- NOTE | 2017-11-25 23:12 | CP.PCM.PN ---
Subjective - Date & Time of Evaluation Date of Evaluation: 11/25/17 Time of Evaluation: 16:00 - Subjective Subjective: SEEN ON RENAL F/U STILL WITH GENERALIZED BODY ACHES STILL WITH ABDO PAIN AND REBOUND LABS OK .. HD IN AM Objective - Vital Signs/Intake and Output Vital Signs (last 24 hours): Temp Pulse Resp BP Pulse Ox 98 F 96 H 18 98/63 L 99 11/25/17 16:37 11/25/17 16:37 11/25/17 16:37 11/25/17 16:37 11/25/17 16:37 - Medications Medications: Current Medications Acetaminophen (Tylenol 325mg Tab) 650 mg PO Q6 PRN PRN Reason: Fever >100.4 F Acetaminophen (Tylenol 325mg Tab) 650 mg PO Q6 PRN PRN Reason: Pain, Mild (1-3) Last Admin: 11/25/17 19:59 Dose: 650 mg Acetaminophen (Tylenol 325mg Tab) 975 mg PO Q8 [facility] Last Admin: 11/25/17 17:12 Dose: Not Given Alprazolam (Xanax) 0.5 mg PO Q8 PRN PRN Reason: Anxiety Last Admin: 11/25/17 08:39 Dose: 0.5 mg Apixaban (Eliquis) 2.5 mg PO Q12 [facility] PRN Reason: Protocol Last Admin: 11/25/17 21:08 Dose: 2.5 mg Atorvastatin Calcium (Lipitor) 40 mg PO HS [facility] Last Admin: 11/25/17 21:08 Dose: 40 mg Calcium Acetate (Phoslo) 667 mg PO TID [facility] Last Admin: 11/25/17 16:56 Dose: 667 mg Cholecalciferol (Vitamin D) 2,000 intlu PO DAILY [facility] Last Admin: 11/25/17 08:40 Dose: 2,000 intlu Digoxin (Digoxin) 0.125 mg PO MWF [facility] Last Admin: 11/25/17 08:41 Dose: 0.125 mg Diphenoxylate HCl/Atropine (Lomotil 0.025-2.5 Mg Tablet) 2 tab PO Q8 PRN PRN Reason: Diarrhea Last Admin: 11/22/17 17:52 Dose: 2 tab Gabapentin (Neurontin) 300 mg PO DAILY [facility] Last Admin: 11/25/17 08:40 Dose: 300 mg Home Med (Febuxostat [Uloric]) 40 mg PO DAILY [facility] Ceftaroline Fosamil 200 mg/ (Sodium Chloride) 100 mls @ 100 mls/hr IVPB Q12 [facility] PRN Reason: Protocol Last Admin: 11/25/17 19:59 Dose: 100 mls/hr Insulin Detemir (Levemir) 40 units SC HS [facility] Last Admin: 11/25/17 22:31 Dose: 40 units Insulin Human Lispro (Humalog) 10 - 15 units SC AC [facility] Last Admin: 11/25/17 16:50 Dose: Not Given Lactulose (Enulose) 10 gm PO HS PRN PRN Reason: Constipation Minoxidil (Minoxidil) 2.5 mg PO Q12 [facility] Last Admin: 11/25/17 21:08 Dose: 2.5 mg Mduyd-1-Ufcs Ethyl Esters (Lovaza) 1 gm PO BID [facility] Last Admin: 11/25/17 16:56 Dose: 1 gm Pantoprazole Sodium (Protonix Ec Tab) 40 mg PO DAILY [facility] Last Admin: 11/25/17 08:41 Dose: 40 mg Sevelamer HCl (Renagel) 1,600 mg PO TID [facility] Last Admin: 11/25/17 16:56 Dose: 1,600 mg Silver Sulfadiazine (Silvadene 1% 50 Gm) 1 applic TOP BID [facility] Last Admin: 11/25/17 16:55 Dose: 1 applic Ticagrelor (Brilinta) 90 mg PO Q12 [facility] Last Admin: 11/25/17 22:30 Dose: 90 mg Verapamil HCl (Calan Sr Capsule) 120 mg PO DAILY [facility] Last Admin: 11/25/17 08:40 Dose: 120 mg Vitamin B Complex/Vit C/Folic Acid (Nephro-Garcia) 1 tab PO DAILY [facility] Last Admin: 11/25/17 08:40 Dose: 1 tab - Labs Labs: 11/25/17 05:40 11/25/17 05:40 PT 13.7 Seconds (9.8-13.1) H 11/19/17 20:19 INR 1.2 (0.9-1.2) 11/19/17 20:19 APTT 37.1 Seconds (25.6-37.1) 11/19/17 20:19 Assessment and Plan - Assessment and Plan (Free Text) Assessment: ESRD ON HD .. HD IN AM ANEMIA OF CKD .. ON EPO S/P PD CATH INSERTION PERITONITIS WITH ABDO PAIN AND TENDERNESS AND REBOUND MMP P : C/O CURRENT CARE C/O PRESENT MANAGEMENT C/P IVAB WILL D/W ID
[2017-11-26] MEDS: Verapamil SR 120 MG CApsule PO SCH (08:59)
[2017-11-26] MEDS: Insulin Lispro (humaLOG) 100 Units/ml Inj SC SCH ×4 (09:02→17:47)
[2017-11-26] MEDS: Omega-3-Acid Ethyl Esters 1 GM Cap PO SCH ×2 (09:05→17:48)
[2017-11-26] MEDS: Pantoprazole 40 mg EC Tab PO SCH (09:06)
[2017-11-26] MEDS: Multivitamin Vitamin B Complex (Nephro-Vite) Tab PO SCH (09:06)
[2017-11-26] MEDS: Silver Sulfadiazine 1% CREAM (50 gm) TOP SCH ×2 (09:07→17:48)
[2017-11-26] MEDS: Cholecalciferol 1,000 INTLU TAB PO SCH (09:07)
[2017-11-26] MEDS ORDERED: Acetaminophen-Codeine 300/30 mg Tab PO PRN (10:06)
[2017-11-26] MEDS: Acetaminophen-Codeine 300/30 mg Tab PO PRN ×3 (10:43→23:57)
[2017-11-26] MEDS ORDERED: Acetaminophen-Codeine 300/30 mg Tab PO STA (14:11)
[2017-11-26] MEDS: Insulin Detemir 100 Units/ml Inj SC SCH (22:22)
--- NOTE | 2017-11-27 03:15 | PN ---
DATE: 11/23/2017 SUBJECTIVE: The patient is seen on 11/23/2017. He was still complaining of intermittent back pain, that is to the front. OBJECTIVE: VITAL SIGNS: Blood pressure was 120/74, temperature 98.8, respiratory rate 20, and pulse 86. HEENT: Pupils equal and reactive to light. Normal-appearing mucosa of the conjunctivae, oropharynx, and nasal membrane mucosa. NECK: Supple. No JVD. No carotid bruit. No lymph node. No thyromegaly. CHEST AND LUNGS: Bilateral symmetrical expansion. Good air exchange. No rales, no rhonchi. CARDIOVASCULAR SYSTEM: PMI not localized. S1, S2. No additional sounds. ABDOMEN: Normoactive bowel sounds. No tenderness. No organomegaly. No masses. EXTREMITIES: No cyanosis, no clubbing, no edema. Right transmetatarsal amputation. DINING SERVICES MANAGER: Alert, awake, oriented x2. No neurological deficit could be appreciated. ASSESSMENT: 1. Bacteremia. 2. End-stage renal disease, on hemodialysis. 3. Hypertension. 4. Type 2 diabetes mellitus. 5. Coronary artery disease. PLAN: Continue current antibiotics as ordered by infectious disease mobile sales consultant. Continue hemodialysis, pain management, physical therapy. Mildred Warren MD
--- NOTE | 2017-11-27 03:19 | PN ---
DATE: 11/26/2017 SUBJECTIVE: The patient is seen today, 11/26/2017. He is no in any cardiopulmonary distress. The patient is still complaining of lower back pain that radiates to the front. OBJECTIVE: VITAL SIGNS: Blood pressure 147/83, temperature 97.4, respiratory rate 20, and pulse 78. HEENT: Pupils equal and reactive to light. Normal-appearing mucosa of the conjunctivae, oropharynx, and nasal membrane mucosa. NECK: Supple. No JVD. No carotid bruit. No lymph node. No thyromegaly. CHEST AND LUNGS: Bilateral symmetrical expansion. Good air exchange. No rales, no rhonchi. CARDIOVASCULAR SYSTEM: PMI not localized. S1, S2. No additional sounds. ABDOMEN: Normoactive bowel sounds. No tenderness. No organomegaly. No masses. Peritoneal catheter is in place. EXTREMITIES: No cyanosis, no clubbing, no edema. ACADEMIC REGISTRAR: Alert, awake, and oriented x2. No neurological deficit could be appreciated. ASSESSMENT: 1. Bacteremia. 2. Hypertension. 3. Type 2 diabetes mellitus. 4. Coronary artery disease. 5. Paroxysmal atrial fibrillation. PLAN: Continue current IV antibiotics, pain management, physical therapy. Continue hemodialysis. Mildred Warren MD
[2017-11-27] MEDS: Acetaminophen-Codeine 300/30 mg Tab PO PRN ×3 (06:04→20:01)
[2017-11-27] MEDS: Insulin Lispro (humaLOG) 100 Units/ml Inj SC SCH ×6 (07:57→16:18)
[2017-11-27] MEDS: Omega-3-Acid Ethyl Esters 1 GM Cap PO SCH ×2 (08:18→16:19)
[2017-11-27] MEDS: Verapamil SR 120 MG CApsule PO SCH (08:19)
[2017-11-27] MEDS: Cholecalciferol 1,000 INTLU TAB PO SCH (08:22)
[2017-11-27] MEDS: Pantoprazole 40 mg EC Tab PO SCH (08:22)
[2017-11-27] MEDS: Multivitamin Vitamin B Complex (Nephro-Vite) Tab PO SCH (08:23)
[2017-11-27] MEDS: Silver Sulfadiazine 1% CREAM (50 gm) TOP SCH ×2 (08:25→16:19)
--- NOTE | 2017-11-27 08:37 | CP.PCM.PN ---
Subjective - Date & Time of Evaluation Date of Evaluation: 11/27/17 Time of Evaluation: 08:34 - Subjective Subjective: Mr. Appiah was seen and examined at the bedside. He is alert, oriented in all spheres. He denies any headache, dizziness, lightheadedness, nausea, or vomiting. He participates in a pleasant conversation and inform staff of the plan of switching from hemodialysis to peritoneal dialysis, and recall his past medical history. He complains of generalized body ache, but able to reposition himself in bed. He is able to follow simple commands. MRI of the brain did not show any acute findings. There was no untoward events overnight. Objective - Vital Signs/Intake and Output Vital Signs (last 24 hours): Temp Pulse Resp BP Pulse Ox 98.9 F 86 20 143/72 94 L 11/27/17 08:33 11/27/17 08:33 11/27/17 08:33 11/27/17 08:33 11/27/17 08:33 - Medications Medications: Current Medications Acetaminophen (Tylenol 325mg Tab) 650 mg PO Q6 PRN PRN Reason: Fever >100.4 F Acetaminophen (Tylenol 325mg Tab) 650 mg PO Q6 PRN PRN Reason: Pain, Mild (1-3) Last Admin: 11/25/17 19:59 Dose: 650 mg Acetaminophen/Codeine Phosphate (Tylenol/Codeine 300 Mg/30 Mg) 1 tab PO Q6 PRN PRN Reason: Pain, moderate (4-7) Last Admin: 11/27/17 06:04 Dose: 1 tab Alprazolam (Xanax) 0.5 mg PO Q8 PRN PRN Reason: Anxiety Last Admin: 11/25/17 08:39 Dose: 0.5 mg Apixaban (Eliquis) 2.5 mg PO Q12 [facility] PRN Reason: Protocol Last Admin: 11/27/17 08:19 Dose: 2.5 mg Atorvastatin Calcium (Lipitor) 40 mg PO HS [facility] Last Admin: 11/26/17 22:22 Dose: 40 mg Calcium Acetate (Phoslo) 667 mg PO TID [facility] Last Admin: 11/27/17 08:19 Dose: 667 mg Cholecalciferol (Vitamin D) 2,000 intlu PO DAILY [facility] Last Admin: 11/27/17 08:22 Dose: 2,000 intlu Digoxin (Digoxin) 0.125 mg PO MWF [facility] Last Admin: 11/25/17 08:41 Dose: 0.125 mg Diphenoxylate HCl/Atropine (Lomotil 0.025-2.5 Mg Tablet) 2 tab PO Q8 PRN PRN Reason: Diarrhea Last Admin: 11/22/17 17:52 Dose: 2 tab Gabapentin (Neurontin) 300 mg PO DAILY [facility] Last Admin: 11/27/17 08:19 Dose: 300 mg Home Med (Febuxostat [Uloric]) 40 mg PO DAILY [facility] Ceftaroline Fosamil 200 mg/ (Sodium Chloride) 100 mls @ 100 mls/hr IVPB Q12 [facility] PRN Reason: Protocol Last Admin: 11/26/17 22:31 Dose: 100 mls/hr Insulin Detemir (Levemir) 40 units SC [facility] Last Admin: 11/26/17 22:22 Dose: 40 units Insulin Human Lispro (Humalog) 10 - 15 units SC AC [facility] Last Admin: 11/27/17 07:57 Dose: Not Given Insulin Human Lispro (Humalog) 0 units SC [facility] PRN Reason: Protocol Last Admin: 11/27/17 07:58 Dose: Not Given Lactulose (Enulose) 10 gm PO HS PRN PRN Reason: Constipation Arakf-2-Vhgo Ethyl Esters (Lovaza) 1 gm PO BID [facility] Last Admin: 11/27/17 08:18 Dose: 1 gm Pantoprazole Sodium (Protonix Ec Tab) 40 mg PO DAILY [facility] Last Admin: 11/27/17 08:22 Dose: 40 mg Sevelamer HCl (Renagel) 1,600 mg PO TID [facility] Last Admin: 11/27/17 08:23 Dose: 1,600 mg Silver Sulfadiazine (Silvadene 1% 50 Gm) 1 applic TOP BID [facility] Last Admin: 11/27/17 08:25 Dose: 1 applic Ticagrelor (Brilinta) 90 mg PO Q12 [facility] Last Admin: 11/27/17 08:22 Dose: 90 mg Verapamil HCl (Calan Sr Capsule) 120 mg PO DAILY [facility] Last Admin: 11/27/17 08:19 Dose: 120 mg Vitamin B Complex/Vit C/Folic Acid (Nephro-Garcia) 1 tab PO DAILY [facility] Last Admin: 11/27/17 08:23 Dose: 1 tab - Labs Labs: 11/25/17 05:40 11/25/17 05:40 PT 13.7 Seconds (9.8-13.1) H 11/19/17 20:19 INR 1.2 (0.9-1.2) 11/19/17 20:19 APTT 37.1 Seconds (25.6-37.1) 11/19/17 20:19 - Constitutional Appears: No Acute Distress - Head Exam Head Exam: NORMAL INSPECTION - Eye Exam Pupil Exam: PERRL - Neurological Exam Neurological Exam: Alert, Awake, Oriented x3 Neuro motor strength exam: Left Upper Extremity: 4, Right Upper Extremity: 4, Left Lower Extremity: 4, Right Lower Extremity: 4 Additional comments: neurological improved from previous examination. Assessment and Plan (1) Encephalopathy Assessment & Plan: Continue all current medical regimen. There is no other new recommendations from neurology. Recommend to treat any electrolyte abnormalities, blood pressure control and glycemic control. Status: Acute
--- NOTE | 2017-11-27 22:02 | CP.PCM.PN ---
Subjective - Date & Time of Evaluation Date of Evaluation: 11/27/17 Time of Evaluation: 16:00 - Subjective Subjective: SEEN ON RENAL F/U FEELS IMPROVED ALL PREVIOUS EMR REVIEWED HAD HD YESTERDAY VSS Objective - Vital Signs/Intake and Output Vital Signs (last 24 hours): Temp Pulse Resp BP Pulse Ox 97.8 F 72 20 142/74 96 11/27/17 17:00 11/27/17 17:00 11/27/17 17:00 11/27/17 17:00 11/27/17 17:00 - Medications Medications: Current Medications Acetaminophen (Tylenol 325mg Tab) 650 mg PO Q6 PRN PRN Reason: Fever >100.4 F Acetaminophen (Tylenol 325mg Tab) 650 mg PO Q6 PRN PRN Reason: Pain, Mild (1-3) Last Admin: 11/25/17 19:59 Dose: 650 mg Acetaminophen/Codeine Phosphate (Tylenol/Codeine 300 Mg/30 Mg) 1 tab PO Q6 PRN PRN Reason: Pain, moderate (4-7) Last Admin: 11/27/17 20:01 Dose: 1 tab Alprazolam (Xanax) 0.5 mg PO Q8 PRN PRN Reason: Anxiety Last Admin: 11/25/17 08:39 Dose: 0.5 mg Apixaban (Eliquis) 2.5 mg PO Q12 [facility] PRN Reason: Protocol Last Admin: 11/27/17 20:01 Dose: 2.5 mg Atorvastatin Calcium (Lipitor) 40 mg PO [facility] Last Admin: 11/26/17 22:22 Dose: 40 mg Calcium Acetate (Phoslo) 667 mg PO TID [facility] Last Admin: 11/27/17 16:19 Dose: 667 mg Cholecalciferol (Vitamin D) 2,000 intlu PO DAILY [facility] Last Admin: 11/27/17 08:22 Dose: 2,000 intlu Digoxin (Digoxin) 0.125 mg PO MWF [facility] Last Admin: 11/25/17 08:41 Dose: 0.125 mg Diphenoxylate HCl/Atropine (Lomotil 0.025-2.5 Mg Tablet) 2 tab PO Q8 PRN PRN Reason: Diarrhea Last Admin: 11/22/17 17:52 Dose: 2 tab Gabapentin (Neurontin) 300 mg PO DAILY [facility] Last Admin: 11/27/17 08:19 Dose: 300 mg Home Med (Febuxostat [Uloric]) 40 mg PO DAILY [facility] Insulin Detemir (Levemir) 40 units SC [facility] Last Admin: 11/26/17 22:22 Dose: 40 units Insulin Human Lispro (Humalog) 10 - 15 units SC AC [facility] Last Admin: 11/27/17 16:18 Dose: Not Given Insulin Human Lispro (Humalog) 0 units SC [facility] PRN Reason: Protocol Last Admin: 11/27/17 16:17 Dose: Not Given Lactulose (Enulose) 10 gm PO HS PRN PRN Reason: Constipation Txviq-6-Csok Ethyl Esters (Lovaza) 1 gm PO BID [facility] Last Admin: 11/27/17 16:19 Dose: 1 gm Pantoprazole Sodium (Protonix Ec Tab) 40 mg PO DAILY [facility] Last Admin: 11/27/17 08:22 Dose: 40 mg Sevelamer HCl (Renagel) 1,600 mg PO TID [facility] Last Admin: 11/27/17 16:18 Dose: 1,600 mg Silver Sulfadiazine (Silvadene 1% 50 Gm) 1 applic TOP BID [facility] Last Admin: 11/27/17 16:19 Dose: 1 applic Ticagrelor (Brilinta) 90 mg PO Q12 [facility] Last Admin: 11/27/17 20:01 Dose: 90 mg Verapamil HCl (Calan Sr Capsule) 120 mg PO DAILY [facility] Last Admin: 11/27/17 08:19 Dose: 120 mg Vitamin B Complex/Vit C/Folic Acid (Nephro-Garcia) 1 tab PO DAILY [facility] Last Admin: 11/27/17 08:23 Dose: 1 tab - Labs Labs: 11/25/17 05:40 11/25/17 05:40 PT 13.7 Seconds (9.8-13.1) H 11/19/17 20:19 INR 1.2 (0.9-1.2) 11/19/17 20:19 APTT 37.1 Seconds (25.6-37.1) 11/19/17 20:19 Assessment and Plan - Assessment and Plan (Free Text) Assessment: ESRD ON HD SO FAR LACK OF HD VASCULAR ACCESS S/P PD CATH INSERTION PERITONITIS SEPSIS .. +VE B/C P : C/O IVAB C/O PO MEDS C/O PRESENT MEDS
[2017-11-27] MEDS: Insulin Detemir 100 Units/ml Inj SC SCH (22:08)
--- NOTE | 2017-11-28 00:31 | PN ---
DATE: 11/27/2017 DAILY PROGRESS NOTE SUBJECTIVE: The patient is seen today, 11/27/2017. He is still complaining of abdominal pain. PHYSICAL EXAMINATION: VITAL SIGNS: Blood pressure 142/74, temperature 97.8, respiratory rate 20 and pulse 72. HEENT: Pupils are equal and reactive to light. Normal-appearing mucosa of the conjunctivae, oropharynx and nasal membrane mucosa. NECK: Supple. No JVD. No carotid bruit. No lymph node. No thyromegaly. CHEST AND LUNGS: Bilateral symmetrical expansion. Good air exchange. No rales. No rhonchi. CARDIOVASCULAR SYSTEM: PMI not localized. S1, S2. No additional sounds. ABDOMEN: Normoactive bowel sounds. There is tenderness in the left lower quadrant. No rebound tenderness or rigidity. EXTREMITIES: No cyanosis, no clubbing, no edema. Right transmetatarsal amputation. MASTER NAVAL PARACHUTIST: Alert, awake, oriented x2 and no neurological deficit could be appreciated. ASSESSMENT: 1. Sepsis secondary to bacteremia with coagulase-negative Staphylococcus aureus. Currently, the patient is on IV antibiotics as per Infectious Disease enterprise resource planning consultant. 2. Abdominal pain with tenderness in the left lower quadrant. Abdominal CAT scan was done before 11/22/2017 that did not show any inflammatory disease or peritonitis. We will repeat the CT scan again before dialysis tomorrow. 3. Type 2 diabetes mellitus. 4. Hypertension. 5. Coronary artery disease. PLAN: Continue current medications and IV antibiotics as per ID enterprise resource planning consultant, and we will arrange to have a CAT scan done before dialysis tomorrow morning. Mildred Warren MD
[2017-11-28] MEDS: Acetaminophen-Codeine 300/30 mg Tab PO PRN ×4 (01:11→16:43)
[2017-11-28] MEDS ORDERED: Alum-Mag Hydrox-Simethicone Susp (30 mL) PO ONE (01:30)
[2017-11-28] MEDS: Insulin Lispro (humaLOG) 100 Units/ml Inj SC SCH ×6 (07:12→16:44)
[2017-11-28] MEDS ORDERED: Iohexol 240 (50 ml) PO ONE (08:00)
[2017-11-28] MEDS: Pantoprazole 40 mg EC Tab PO SCH (08:42)
[2017-11-28] MEDS: Verapamil SR 120 MG CApsule PO SCH (08:42)
[2017-11-28] MEDS: Digoxin 125 mcg (0.125 mg) Tab PO SCH (08:42)
[2017-11-28] MEDS: Omega-3-Acid Ethyl Esters 1 GM Cap PO SCH ×3 (08:46→16:45)
[2017-11-28] MEDS: Cholecalciferol 1,000 INTLU TAB PO SCH ×2 (08:47→13:18)
[2017-11-28] MEDS: Silver Sulfadiazine 1% CREAM (50 gm) TOP SCH ×2 (08:47→16:45)
[2017-11-28] MEDS: Alum-Mag Hydrox-Simethicone Susp (30 mL) PO PRN ×2 (08:57→16:43)
[2017-11-28] MEDS: Multivitamin Vitamin B Complex (Nephro-Vite) Tab PO SCH ×2 (09:04→12:51)
--- NOTE | 2017-11-28 13:18 | CT ---
Date of service: 11/28/2017 PROCEDURE: CT Abdomen and Pelvis with contrast HISTORY: Lethargy, renal failure and abdominal pain. COMPARISON: 11/22/2017 CT abdomen pelvis. TECHNIQUE: Unenhanced study. Neither oral nor intravenous contrast administered. Radiation dose: Total exam DLP = 797.92 mGy-cm. This CT exam was performed using one or more of the following dose reduction techniques: Automated exposure control, adjustment of the mA and/or kV according to patient size, and/or use of iterative reconstruction technique. FINDINGS: LOWER THORAX: Unremarkable. LIVER: Unremarkable. No gross lesion or ductal dilatation. GALLBLADDER AND BILE DUCTS: Unremarkable. PANCREAS: Unremarkable. No gross lesion or ductal dilatation. SPLEEN: Unremarkable. ADRENALS: Unremarkable. No mass. KIDNEYS AND URETERS: Stable findings with respect to [place] kidneys and transplanted kidney in the right lower quadrant/ pelvis. VASCULATURE: Unremarkable. No aortic aneurysm. BOWEL: Diffusely dilated small bowel likely ileus. Head in distention of the stomach identifies mucosal in duodenal thickness compatible with gastritis, duodenitis. APPENDIX: Normal appendix. PERITONEUM: Unremarkable. No free fluid. No free air. LYMPH NODES: Unremarkable. No enlarged lymph nodes. BLADDER: Unremarkable. REPRODUCTIVE: Unremarkable. BONES: No acute fracture. OTHER FINDINGS: Stable position of peritoneal dialysis catheter. IMPRESSION: Mildly dilated small bowel a new finding compared to prior study likely ileus. Gastritis/enteritis, mild. Otherwise no interval change.
[2017-11-28 18:01] LABS: HEMOGLOBIN 12.4 g/dL (12.0-18.0); MEAN CELL VOLUME 80.7 fl (80.0-94.0); MEAN CORPUSCULAR HGB CONC 32.3 g/dL (33.0-37.0); RBC 4.77 Mil/uL (4.40-5.90); RED CELL DISTRIBUTION WIDTH 15.2 % (11.5-14.5); WHITE BLOOD COUNT 8.5 K/uL (4.8-10.8)
--- NOTE | 2017-11-28 18:03 | CP.PCM.PN ---
Subjective - Date & Time of Evaluation Date of Evaluation: 11/28/17 Time of Evaluation: 18:02 - Subjective Subjective: ID Note- Pt. seen and examined. No new events. denies any fever or chills. Objective - Vital Signs/Intake and Output Vital Signs (last 24 hours): Temp Pulse Resp BP Pulse Ox 97.9 F 90 20 152/87 H 97 11/28/17 16:10 11/28/17 16:10 11/28/17 16:10 11/28/17 16:10 11/28/17 16:10 - Medications Medications: Current Medications Acetaminophen (Tylenol 325mg Tab) 650 mg PO Q6 PRN PRN Reason: Fever >100.4 F Acetaminophen (Tylenol 325mg Tab) 650 mg PO Q6 PRN PRN Reason: Pain, Mild (1-3) Last Admin: 11/27/17 22:43 Dose: 650 mg Acetaminophen/Codeine Phosphate (Tylenol/Codeine 300 Mg/30 Mg) 1 tab PO Q4 PRN PRN Reason: Pain, severe (8-10) Last Admin: 11/28/17 16:43 Dose: 1 tab Al Hydrox/Mg Hydrox/Simethicone (Maalox Plus 30 Ml) 30 ml PO Q6 PRN PRN Reason: Indigestion / Heartburn Last Admin: 11/28/17 16:43 Dose: 30 ml Alprazolam (Xanax) 0.5 mg PO Q8 PRN PRN Reason: Anxiety Last Admin: 11/25/17 08:39 Dose: 0.5 mg Apixaban (Eliquis) 2.5 mg PO Q12 [facility] PRN Reason: Protocol Last Admin: 11/28/17 12:50 Dose: 2.5 mg Atorvastatin Calcium (Lipitor) 40 mg PO HS [facility] Last Admin: 11/27/17 22:11 Dose: 40 mg Calcium Acetate (Phoslo) 667 mg PO TID [facility] Last Admin: 11/28/17 17:57 Dose: 667 mg Cholecalciferol (Vitamin D) 2,000 intlu PO DAILY [facility] Last Admin: 11/28/17 13:18 Dose: 2,000 intlu Digoxin (Digoxin) 0.125 mg PO MWF [facility] Last Admin: 11/28/17 08:42 Dose: 0.125 mg Diphenoxylate HCl/Atropine (Lomotil 0.025-2.5 Mg Tablet) 2 tab PO Q8 PRN PRN Reason: Diarrhea Last Admin: 11/22/17 17:52 Dose: 2 tab Gabapentin (Neurontin) 300 mg PO DAILY [facility] Last Admin: 11/28/17 12:50 Dose: 300 mg Home Med (Febuxostat [Uloric]) 40 mg PO DAILY [facility] Last Admin: 11/28/17 12:47 Dose: 40 mg Ceftaroline Fosamil 200 mg/ (Sodium Chloride) 100 mls @ 100 mls/hr IVPB Q12 [facility] PRN Reason: Protocol Last Admin: 11/28/17 14:25 Dose: 100 mls/hr Insulin Detemir (Levemir) 40 units SC [facility] Last Admin: 11/27/17 22:08 Dose: Not Given Insulin Human Lispro (Humalog) 10 - 15 units SC AC [facility] Last Admin: 11/28/17 16:44 Dose: Not Given Insulin Human Lispro (Humalog) 0 units SC AC [facility] PRN Reason: Protocol Last Admin: 11/28/17 16:44 Dose: Not Given Lactulose (Enulose) 10 gm PO HS PRN PRN Reason: Constipation Csoal-1-Lrin Ethyl Esters (Lovaza) 1 gm PO BID [facility] Last Admin: 11/28/17 16:45 Dose: 1 gm Pantoprazole Sodium (Protonix Ec Tab) 40 mg PO DAILY [facility] Last Admin: 11/28/17 08:42 Dose: 40 mg Sevelamer HCl (Renagel) 1,600 mg PO TID [facility] Last Admin: 11/28/17 16:45 Dose: 1,600 mg Silver Sulfadiazine (Silvadene 1% 50 Gm) 1 applic TOP BID [facility] Last Admin: 11/28/17 16:45 Dose: 1 applic Ticagrelor (Brilinta) 90 mg PO Q12 [facility] Last Admin: 11/28/17 12:51 Dose: 90 mg Verapamil HCl (Calan Sr Capsule) 120 mg PO DAILY [facility] Last Admin: 11/28/17 08:42 Dose: 120 mg Vitamin B Complex/Vit C/Folic Acid (Nephro-Garcia) 1 tab PO DAILY [facility] Last Admin: 11/28/17 12:51 Dose: 1 tab - Labs Labs: - Additional Findings Additional findings: Constitutional Appears: No Acute Distress - Head Exam Head Exam: ATRAUMATIC - ENT Exam ENT Exam: Normal Oropharynx - Neck Exam Neck exam: Positive for: Full Rom - Respiratory Exam Respiratory Exam: Clear to Auscultation Bilateral, NORMAL BREATHING PATTERN - Cardiovascular Exam Cardiovascular Exam: RRR, +S1, +S2 - GI/Abdominal Exam GI & Abdominal Exam: Normal Bowel Sounds, Soft Additional comments: NT, ND PD catheter in place (not used yet) - Extremities Exam Additional comments: no edema - Neurological Exam Neurological exam: Alert, Oriented x 3 Laboratory Results - last 72 hr 11/25/17 11/26/17 11/26/17 21:25 05:34 11:29 POC Glucose (mg/dL) 148 H 160 H 129 H 11/26/17 11/26/17 11/27/17 16:16 21:18 05:19 POC Glucose (mg/dL) 125 H 137 H 117 H 11/27/17 11/27/17 11/27/17 11:39 16:08 22:02 POC Glucose (mg/dL) 139 H 121 H 117 H 11/28/17 11/28/17 11/28/17 06:23 10:59 16:01 POC Glucose (mg/dL) 120 H 130 H 145 H Microbiology 11/24/17 16:37 Blood-Thru Central Line Blood Culture - Preliminary NO GROWTH AFTER 4 DAYS 11/22/17 15:15 Peritoneal Fluid Gram Stain - Final 11/22/17 15:15 Peritoneal Fluid Body Fluid Culture - Final No growth. 11/19/17 23:10 Blood Blood Culture - Final NO GROWTH AFTER 5 DAYS 11/19/17 23:10 Blood Blood Culture - Final NO GROWTH AFTER 5 DAYS 11/19/17 23:10 Blood Gram Stain - Final TEST NOT PERFORMED 11/19/17 20:19 Blood Blood Culture - Final NO GROWTH AFTER 5 DAYS 11/19/17 20:19 Blood Gram Stain - Final TEST NOT PERFORMED 11/20/17 10:30 Blood-Thru Central Line S.aureus & Coag-Neg Staph PNA FISH - Final 11/20/17 10:30 Blood-Thru Central Line Blood Culture - Final Coagulase Neg Staphylococcus 11/20/17 10:30 Blood-Thru Central Line Gram Stain - Final 11/20/17 10:00 Urine Urine Culture - Final No Growth (<1,000 CFU/ML) Assessment and Plan (1) Fever in adult Status: Acute (2) AV shunt malfunction Status: Acute - Assessment and Plan (Free Text) Assessment: A/P- 52 year old male with ESRD oN HD who was recently d/c to OR readmitted with low garde fever and AMS. clinically better. has remained afebrile normal wbc count Brain CT - as per report negative CXR- no active disease as per report. wrist xray- negative as per report abd /pelvic CT- no evidence of peritonitis as per report blood cx from HD line 11/20/2017- coag neg staph x 1 blood cx from 11/19/2017- neg x 3 (peripheral) blood cx from 11/24/2017 from HD catheter- negative peritoneal fluid cx-neg TTE- no vegetations as per report read by account manager forest service. plan- has completed 9 days of IV teflaro. advise 1 more day and then d/c it tomm.
--- NOTE | 2017-11-28 18:23 | PQF ---
PROVIDER RESPONSE TEXT: Pressure ulcer, stage 2 POA REVIEWER QUERY TEXT: Pressure Ulcer Type Pressure ulcer is documented in the Medical Record. Please specify the followin. the location 2. the stage 3. present on admission status POA status of each pressure ulcer:-- Not present on admission versus Present on admission -- Other -- Clinically unable to determine -- Unknown ---Disagree Stage of each pressure ulcer (National Pressure Ulcer Advisory Panel definitions): -- Stage I: Intact skin with non-blanchable redness of a localized area -- Stage II: Partial thickness skin loss involving dermis with a shallow open ulcer or an open serum -filled blister -- Stage III: Full thickness skin loss involving damage or necrosis of subcutaneous tissue -- Stage IV: Full thickness skin loss with exposed bone, tendon or muscle -- Unstageable: Full thickness tissue loss in which the base of the ulcer is covered by slough and/o r eschar in the wound bed 11/20:entry operator: Admission Assessment Info: POA: Pressure Ulcer:Yes Pressure Ulcer Assessment: Rt. Buttock: Partial thickness loss of dermis presenting as a shallow ulce r 11/21 Wound RN: There is a stage 2 PI on the right medial buttock with a mirror ulcer on the left that is healed. Skin prep applied. This may be from shear and pressure. Patient states that it was a stage 3 in the past and he had a visiting nurse coming weekly. ER: Clinical Impression: Renal failure,Fever in adult POA: Pressure Ulcer The patient's Clinical Indicators include: XXXXXX Query created by: Toshia Zayas on 11/22/2017 10:32 AM PROVIDER RESPONSE TEXT: Ruled in , Line related. REVIEWER QUERY TEXT: Clarification of Clinical Diagnostic Findings 2 queries: 1. Is Sepsis ruled in or Sepsis ruled out? 2. If Sepsis is ruled in etiology? if known or etiology undetermined 11/19 bld. cultures x 2 prelim: negative 11/20 bld. culture x 1 through the central line: prelim gm. pos. cocci WBC: 7.3->5.9 11/19: V/S tab: 99.4->99.7->99.9->98.9 ER : Clinical Impression :Renal failure, Fever in adult POA: Pressure Ulcer H and P:dxs. include:: 1. Change of mental status with previous history of bacteremia, rule out sepsi s. 2. End-stage renal disease, on hemodialysis. 11/20 ID consult::(1) Fever in adult Status: Acute (2) AV shunt malfunction ; ESRD on HD who was recent ly d/c to [place] readmitted with low grade fever and AMS. pt.'s fever was very low grade 99.9. ;normal wb c count AMS has resolved now. Brain CT - as per report neg. CXR- no active disease source of low grad e fever unclear at this time, perhaps rheumatologic instead of Infectious etiology specially in light of joint pains. also PD catheter site advise to have dressing changed and area cleaned. plan- : check 2 blood cx . one from HD cath and one peripherally. advise to resume teflaro ( HD Dose) empirically pending further results. advise to check x-ray of the right wrist . 11/21 Neuro consult: altered mental status that is not likely to bestoke, however, he may have an intra cerebral process. There are signs of metabolic encephalopathy: check ammonia and blood cultures for i nfection. Plan: 2. MRI brain without contrast 3. Ammonia level for hepatic encephalopathy 11/21 Surgery consult: Peritonitis unlikely as PD catheter has not been used yet -No surgical intervent ions at this time -If concerned for peritonitis from PD catheter then recc. obtaining cultures from i ntra-peritoneal fluid 11/21 Attending progress note: dxs. include: 1. Change of mental status secondary to metabolic encephal opathy, likely hypoglycemia versus infection. 3. Possible peritoneal access infection. 11/22 Renal: dxs. include:CHANGE IN MENTAL STATUS AND CONFUSION .. ETIOLOGY ? SEPSIS ON IVAB PERITONIT IS ..HAS ABDO PAIN AND REBOUND TENDERNESS The patient's Clinical Indicators include: xxxx Query created by: Toshia Zayas on 11/22/2017 10:42 AM Electronically signed by: Mildred Warren MD 11/28/2017 6:19 PM
[2017-11-28 18:36] LABS: ALBUMIN 4.5 g/dL (3.5-5.0); CALCIUM 10.8 mg/dL (8.4-10.2)
[2017-11-28] MEDS ORDERED: Chlorhexidine Gluconate 1 APPL/PKT TP ONE (18:39)
[2017-11-28] MEDS ORDERED: Dextrose 5%/0.9% NS 1,000 ML IV SCH (19:15)
--- NOTE | 2017-11-28 21:01 | PCM.RRT ---
I.Reason for BSW - A) Acute Change in Patient: Subjective: BSW Akash Appiah , :1965 BSW Time: 7:56pm BSW Location:Room 665 Bed 2 BSW Arrival:8:00pm BSW Reason:Patient had abdominal pain, SOB, became hypertensive and tachycardic. S: Patient with ESRD had a temporary peritoneal catheter placed yesterday, he was dialyzed today and has peritonitis where he is receiving Vancomycin. He then started experiencing abdominal pain and SOB, remains a febrile. O: BSW Vitals: T: 98. 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 5 BP:208/104 HR:103 So2: 97% BSW end:8:10pm BSW Leader: Dr. David Brown BSW residents: Dr. Jone Porter PGY-3 Dr. Stephie Alvarado PGY-1
[2017-11-28 21:03] LABS: TROPONIN I 0.033 ng/mL (0.00-0.120)
[2017-11-28 21:11] LABS: CALCIUM 11.4 mg/dL (8.4-10.2)
[2017-11-28] MEDS: Insulin Detemir 100 Units/ml Inj SC SCH ×2 (22:10→22:13)
--- NOTE | 2017-11-28 23:45 | PN ---
DATE: 11/28/2017 DAILY PROGRESS NOTE SUBJECTIVE: The patient is seen today, 11/28/2017. He is still complaining of lower abdominal pain. CAT scan of the abdomen and pelvis showed new small bowel dilatation with possible ileus. PHYSICAL EXAMINATION: VITAL SIGNS: Blood pressure 152/87, temperature 97.9, respiratory rate 20, and pulse 90. HEENT: Pupils are equal and reactive to light. Normal-appearing mucosa of the conjunctivae, oropharynx and nasal membrane mucosa. NECK: Supple. No JVD. No carotid bruits. No lymph node. No thyromegaly. CHEST AND LUNGS: Bilateral symmetrical expansion. Good air exchange. No rales. No rhonchi. CARDIOVASCULAR SYSTEM: PMI not localized. S1, S2. No additional sounds. ABDOMEN: Normoactive bowel sounds. No tenderness. No organomegaly. No masses. EXTREMITIES: No cyanosis. No clubbing. No edema. Right transmetatarsal amputation. FUNERAL ATTENDANT: Alert, awake and oriented x2. No neurological deficit could be appreciated. ASSESSMENT: 1. Small bowel dilatation with ileus, likely secondary to narcotic analgesics. 2. Sepsis with bacteremia, likely related to Lyme. 3. Hypertension. 4. Coronary artery disease. 5. Type 2 diabetes mellitus. PLAN: We will give vancomycin through peritoneal dialysis. Continue current medications. We will stop all narcotic analgesics, and we will place nasogastric tube for intermittent suction and give the patient Reglan. The patient is for hemodialysis today. Mildred Warren MD
[2017-11-29] MEDS: Acetaminophen-Codeine 300/30 mg Tab PO PRN ×5 (04:48→21:50)
[2017-11-29] MEDS: Silver Sulfadiazine 1% CREAM (50 gm) TOP SCH ×2 (09:16→16:43)
[2017-11-29] MEDS: Cholecalciferol 1,000 INTLU TAB PO SCH (09:17)
[2017-11-29] MEDS: Omega-3-Acid Ethyl Esters 1 GM Cap PO SCH ×2 (09:18→16:45)
[2017-11-29] MEDS: Multivitamin Vitamin B Complex (Nephro-Vite) Tab PO SCH (09:18)
[2017-11-29] MEDS: Insulin Lispro (humaLOG) 100 Units/ml Inj SC SCH ×6 (09:19→16:41)
[2017-11-29] MEDS: Verapamil SR 120 MG CApsule PO SCH (09:21)
[2017-11-29] MEDS: Pantoprazole 40 mg EC Tab PO SCH (09:21)
[2017-11-29] MEDS ORDERED: Chlorhexidine Gluconate 1 APPL/PKT TP ONE (10:21)
--- NOTE | 2017-11-29 15:28 | CARD ---
APPROVED REPORT Date of service: 11/28/2017 EKG Measurement Heart [id number] <Conclusion> Sinus tachycardia Right bundle branch block Abnormal ECG
[2017-11-29] MEDS ORDERED: HYDROmorphone 0.5 mg/0.5 ml ISec IVP PRN (17:39)
[2017-11-29] MEDS: Insulin Detemir 100 Units/ml Inj SC SCH (21:47)
--- NOTE | 2017-11-29 23:08 | CP.PCM.PN ---
Subjective - Date & Time of Evaluation Date of Evaluation: 11/29/17 Time of Evaluation: 16:00 - Subjective Subjective: SEEN ON RENAL F/U STILL NOT DOING WELL C/O ABDO PAIN ON SLIGHTEST MOVEMENT AND SLIGHTEST PALPATION HAD CHARGE MASTER SPECIALIST LAST NIGHT 2/2 SEVERE PAIN ,ANXIETY ,HIGH BP AND TACHYCARDIA DID HAVE HIS HD YESTERDAY Objective - Vital Signs/Intake and Output Vital Signs (last 24 hours): Temp Pulse Resp BP Pulse Ox 98.6 F 101 H 20 120/70 94 L 11/29/17 16:38 11/29/17 17:45 11/29/17 16:38 11/29/17 18:55 11/29/17 18:55 - Medications Medications: Current Medications Acetaminophen (Tylenol 325mg Tab) 650 mg PO Q6 PRN PRN Reason: Fever >100.4 F Acetaminophen (Tylenol 325mg Tab) 650 mg PO Q6 PRN PRN Reason: Pain, Mild (1-3) Last Admin: 11/27/17 22:43 Dose: 650 mg Acetaminophen/Codeine Phosphate (Tylenol/Codeine 300 Mg/30 Mg) 1 tab PO Q4 PRN PRN Reason: Pain, severe (8-10) Last Admin: 11/29/17 21:50 Dose: 1 tab Al Hydrox/Mg Hydrox/Simethicone (Maalox Plus 30 Ml) 30 ml PO Q6 PRN PRN Reason: Indigestion / Heartburn Last Admin: 11/28/17 16:43 Dose: 30 ml Alprazolam (Xanax) 0.5 mg PO Q8 PRN PRN Reason: Anxiety Last Admin: 11/25/17 08:39 Dose: 0.5 mg Apixaban (Eliquis) 2.5 mg PO Q12 PATRIZIA PRN Reason: Protocol Last Admin: 11/29/17 21:44 Dose: 2.5 mg Atorvastatin Calcium (Lipitor) 40 mg PO HS PATRIZIA Last Admin: 11/29/17 21:43 Dose: 40 mg Calcium Acetate (Phoslo) 667 mg PO TID PATRIZIA Last Admin: 11/29/17 16:44 Dose: 667 mg Cholecalciferol (Vitamin D) 2,000 intlu PO DAILY COUNTS [facility]CLUDE 234 BEDS AT [facility] Last Admin: 11/29/17 09:17 Dose: 2,000 intlu Clonidine HCl (Catapres Tts1 0.1 Mg/24 Hr) 1 patch TD Q7D COUNTS INCLUDE 234 BEDS AT THE [facility] Last Admin: 11/28/17 20:17 Dose: 1 patch Digoxin (Digoxin) 0.125 mg PO MWF COUNTS INCLUDE 234 BEDS AT THE [facility] Last Admin: 11/28/17 08:42 Dose: 0.125 mg Gabapentin (Neurontin) 300 mg PO DAILY COUNTS INCLUDE 234 BEDS AT THE [facility] Last Admin: 11/29/17 09:18 Dose: 300 mg Home Med (Febuxostat [Uloric]) 40 mg PO DAILY COUNTS INCLUDE 234 BEDS AT [facility] Last Admin: 11/29/17 09:17 Dose: 40 mg Hydralazine HCl (Apresoline) 25 mg PO Q8 COUNTS INCLUDE 234 BEDS AT THE [facility] Last Admin: 11/29/17 17:45 Dose: 25 mg Hydromorphone HCl (Dilaudid) 0.5 mg IVP Q6 PRN PRN Reason: Pain, severe (8-10) Stop: 12/01/17 17:39 Ceftaroline Fosamil 200 mg/ (Sodium Chloride) 100 mls @ 100 mls/hr IVPB Q12 COUNTS INCLUDE 234 BEDS AT THE [facility] PRN Reason: Protocol Last Admin: 11/29/17 21:50 Dose: 100 mls/hr Insulin Detemir (Levemir) 40 units SC [facility] Last Admin: 11/29/17 21:47 Dose: 40 units Insulin Human Lispro (Humalog) 10 - 15 units SC AC COUNTS INCLUDE 234 BEDS AT [facility] Last Admin: 11/29/17 16:40 Dose: 1 unit Insulin Human Lispro (Humalog) 0 units SC [facility] PRN Reason: Protocol Last Admin: 11/29/17 16:41 Dose: Not Given Lactulose (Enulose) 10 gm PO HS PRN PRN Reason: Constipation Lorazepam (Ativan) 0.5 mg IVP Q6 PRN PRN Reason: Anxiety Last Admin: 11/28/17 23:52 Dose: 0.5 mg Metoclopramide HCl (Reglan) 5 mg IVP Q8 COUNTS INCLUDE 234 BEDS AT [facility] Last Admin: 11/29/17 18:36 Dose: 5 mg [id number] Ethyl Esters (Lovaza) 1 gm PO BID COUNTS INCLUDE 234 BEDS AT THE [facility] Last Admin: 11/29/17 16:45 Dose: 1 gm Pantoprazole Sodium (Protonix Ec Tab) 40 mg PO DAILY COUNTS INCLUDE 234 BEDS AT [facility] Last Admin: 11/29/17 09:21 Dose: 40 mg Sevelamer HCl (Renagel) 1,600 mg PO TID COUNTS INCLUDE 234 BEDS AT [facility] Last Admin: 11/29/17 16:42 Dose: 1,600 mg Silver Sulfadiazine (Silvadene 1% 50 Gm) 1 applic TOP BID COUNTS INCLUDE 234 BEDS AT THE [facility] Last Admin: 11/29/17 16:43 Dose: 1 applic Ticagrelor (Brilinta) 90 mg PO Q12 COUNTS INCLUDE 234 BEDS AT [facility] Last Admin: 11/29/17 21:43 Dose: 90 mg Verapamil HCl (Calan Sr Capsule) 120 mg PO DAILY COUNTS INCLUDE 234 BEDS AT [facility] Last Admin: 11/29/17 09:21 Dose: 120 mg Vitamin B Complex/Vit C/Folic Acid (Nephro-Garcia) 1 tab PO DAILY COUNTS INCLUDE 234 BEDS AT THE [facility] Last Admin: 11/29/17 09:18 Dose: 1 tab - Labs Labs: 11/28/17 17:52 11/28/17 20:32 PT 13.7 Seconds (9.8-13.1) H 11/19/17 20:19 INR 1.2 (0.9-1.2) 11/19/17 20:19 APTT 37.1 Seconds (25.6-37.1) 11/19/17 20:19 Assessment and Plan - Assessment and Plan (Free Text) Assessment: ESRD ON HD TIW ANEMIA OF CKD .. H/H STABLE LACK OF VASCULAR ACCESS FOR HD S/P PD INSERTION FOR FUTURE PD NOW WITH PERITONITIS .. SEVERE ABDO PAIN AND SEVERE REBOUND TENDERNESS MMP P: C/O IVAB .. WAS GIVEN 1 GM VANCO LAST NIGHT INTRA PERITONEALLY .. COULD NOT TOLERATE WELL IF PEROTINITIS PERSIST THEN WILL HAVE TO REMOVE PD CATH NO NARCOTICS
--- NOTE | 2017-11-30 04:12 | PN ---
DATE: 11/29/2017 DAILY PROGRESS NOTE SUBJECTIVE: He is not in any cardiopulmonary distress, but he is still complaining of abdominal pain. PHYSICAL EXAMINATION: VITAL SIGNS: Blood pressure 163/96, temperature 98.6, respiratory rate 18, and pulse 94. HEENT: Pupils are equal and reactive to light. Normal-appearing mucosa of the conjunctivae, oropharynx and nasal membrane mucosa. NECK: Supple. No JVD. No carotid bruits. No lymph node. No thyromegaly. CHEST AND LUNGS: Bilateral symmetrical expansion. Good air exchange. No rales. No rhonchi. CARDIOVASCULAR SYSTEM: PMI not localized. S1, S2. No additional sounds. ABDOMEN: Normoactive bowel sounds. Peritoneal dialysis is in place. There is diffuse tenderness of the abdominal wall. EXTREMITIES: No cyanosis. No clubbing. No edema. ENTRY ENGINEER: Alert, awake, and oriented x1. No neurological deficit could be appreciated. ASSESSMENT: 1. Hypertension. 2. Type 2 diabetes mellitus. 3. Sepsis with bacteremia related to the line. 4. Possible peritonitis. PLAN: Continue current IV antibiotics as per ID. Follow recommendations of the Infectious Disease and national account executive. Mildred Warren MD
[2017-11-30 08:26] VITALS: RESP 20
[2017-11-30] MEDS: Verapamil SR 120 MG CApsule PO SCH (08:41)
[2017-11-30] MEDS: Digoxin 125 mcg (0.125 mg) Tab PO SCH (08:43)
[2017-11-30 08:45] VITALS: PULSE 119
[2017-11-30] MEDS: Insulin Lispro (humaLOG) 100 Units/ml Inj SC SCH ×6 (08:46→17:17)
[2017-11-30] MEDS: Omega-3-Acid Ethyl Esters 1 GM Cap PO SCH ×2 (08:47→17:17)
[2017-11-30] MEDS: Pantoprazole 40 mg EC Tab PO SCH (08:47)
[2017-11-30] MEDS: Multivitamin Vitamin B Complex (Nephro-Vite) Tab PO SCH (08:47)
[2017-11-30] MEDS: Cholecalciferol 1,000 INTLU TAB PO SCH (08:48)
[2017-11-30] MEDS: Silver Sulfadiazine 1% CREAM (50 gm) TOP SCH ×2 (08:49→17:18)
[2017-11-30] MEDS ORDERED: LIDOCAINE 2% 10ML 20 MG/ML VIAL IJ ONE (12:04)
--- NOTE | 2017-11-30 12:07 | CP.PCM.PN ---
Subjective - Date & Time of Evaluation Date of Evaluation: 11/30/17 Time of Evaluation: 11:00 - Subjective Subjective: ID Note- Pt. daniel nd examined today. lethargic. as per nurse had almost TEST ANALYST the other night secondary to high BP and tachycardia as per renal doc has signs of peritonitis and renal doc apparently has give Vanco via PD catheter to patient. pt. has remained afebrile and normal wbc and negative repeat blood cx. Objective - Vital Signs/Intake and Output Vital Signs (last 24 hours): Temp Pulse Resp BP Pulse Ox 99.1 F 106 H 20 154/100 H 98 11/30/17 08:25 11/30/17 09:33 11/30/17 08:25 11/30/17 09:33 11/30/17 09:33 - Medications Medications: Current Medications Acetaminophen (Tylenol 325mg Tab) 650 mg PO Q6 PRN PRN Reason: Fever >100.4 F Acetaminophen (Tylenol 325mg Tab) 650 mg PO Q6 PRN PRN Reason: Pain, Mild (1-3) Last Admin: 11/27/17 22:43 Dose: 650 mg Acetaminophen/Codeine Phosphate (Tylenol/Codeine 300 Mg/30 Mg) 1 tab PO Q4 PRN PRN Reason: Pain, severe (8-10) Last Admin: 11/29/17 21:50 Dose: 1 tab Al Hydrox/Mg Hydrox/Simethicone (Maalox Plus 30 Ml) 30 ml PO Q6 PRN PRN Reason: Indigestion / Heartburn Last Admin: 11/28/17 16:43 Dose: 30 ml Alprazolam (Xanax) 0.5 mg PO Q8 PRN PRN Reason: Anxiety Last Admin: 11/25/17 08:39 Dose: 0.5 mg Apixaban (Eliquis) 2.5 mg PO Q12 PATRIZIA PRN Reason: Protocol Last Admin: 11/30/17 08:43 Dose: 2.5 mg Atorvastatin Calcium (Lipitor) 40 mg PO HS [facility] Last Admin: 11/29/17 21:43 Dose: 40 mg Calcium Acetate (Phoslo) 667 mg PO TID PATRIZIA Last Admin: 11/30/17 08:47 Dose: 667 mg Cholecalciferol (Vitamin D) 2,000 intlu PO DAILY [facility] Last Admin: 11/30/17 08:48 Dose: 2,000 intlu Clonidine HCl (Catapres Tts1 0.1 Mg/24 Hr) 1 patch TD Q7D [facility] Last Admin: 11/28/17 20:17 Dose: 1 patch Digoxin (Digoxin) 0.125 mg PO MWF [facility] Last Admin: 11/30/17 08:43 Dose: 0.125 mg Gabapentin (Neurontin) 300 mg PO DAILY [facility] Last Admin: 11/30/17 08:47 Dose: 300 mg Home Med (Febuxostat [Uloric]) 40 mg PO DAILY [facility] Last Admin: 11/30/17 08:46 Dose: 40 mg Hydralazine HCl (Apresoline) 25 mg PO Q8 [facility] Last Admin: 11/30/17 08:40 Dose: 25 mg Hydromorphone HCl (Dilaudid) 0.5 mg IVP Q6 PRN PRN Reason: Pain, severe (8-10) Stop: 12/01/17 17:39 Ceftaroline Fosamil 200 mg/ (Sodium Chloride) 100 mls @ 100 mls/hr IVPB Q12 [facility] PRN Reason: Protocol Last Admin: 11/29/17 21:50 Dose: 100 mls/hr Insulin Detemir (Levemir) 40 units SC [facility] Last Admin: 11/29/17 21:47 Dose: 40 units Insulin Human Lispro (Humalog) 10 - 15 units SC AC [facility] Last Admin: 11/30/17 08:46 Dose: Not Given Insulin Human Lispro (Humalog) 0 units SC [facility] PRN Reason: Protocol Last Admin: 11/30/17 08:46 Dose: Not Given Lactulose (Enulose) 10 gm PO HS PRN PRN Reason: Constipation Lorazepam (Ativan) 0.5 mg IVP Q6 PRN PRN Reason: Anxiety Last Admin: 11/28/17 23:52 Dose: 0.5 mg Metoclopramide HCl (Reglan) 5 mg IVP Q8 [facility] Last Admin: 11/30/17 08:47 Dose: 5 mg [id number] Ethyl Esters (Lovaza) 1 gm PO BID [facility] Last Admin: 11/30/17 08:47 Dose: 1 gm Pantoprazole Sodium (Protonix Ec Tab) 40 mg PO DAILY [facility] Last Admin: 11/30/17 08:47 Dose: 40 mg Sevelamer HCl (Renagel) 1,600 mg PO TID [facility] Last Admin: 11/30/17 08:45 Dose: 1,600 mg Silver Sulfadiazine (Silvadene 1% 50 Gm) 1 applic TOP BID [facility] Last Admin: 11/30/17 08:49 Dose: 1 applic Ticagrelor (Brilinta) 90 mg PO Q12 [facility] Last Admin: 11/30/17 08:42 Dose: 90 mg Verapamil HCl (Calan Sr Tab) 120 mg PO DAILY [facility] Vitamin B Complex/Vit C/Folic Acid (Nephro-Garcia) 1 tab PO DAILY [facility] Last Admin: 11/30/17 08:47 Dose: 1 tab - Labs Labs: - Additional Findings Additional findings: Constitutional Appears: No Acute Distress - Head Exam Head Exam: ATRAUMATIC - ENT Exam ENT Exam: Normal Oropharynx - Neck Exam Neck exam: Positive for: Full Rom - Respiratory Exam Respiratory Exam: Clear to Auscultation Bilateral, NORMAL BREATHING PATTERN - Cardiovascular Exam Cardiovascular Exam: RRR, +S1, +S2 - GI/Abdominal Exam GI & Abdominal Exam: Normal Bowel Sounds, Soft Additional comments: NT, ND PD catheter in place, no discharge seen around the tube - Extremities Exam Additional comments: no edema - Neurological Exam Neurological exam: lethargic Laboratory Results - last 72 hr 11/27/17 11/27/17 11/28/17 16:08 22:02 06:23 WBC RBC Hgb Hct MCV MCH MCHC RDW Plt Count Sodium Potassium Chloride Carbon Dioxide Anion Gap BUN Creatinine Est GFR ( Amer) Est GFR (Non-Af Amer) POC Glucose (mg/dL) 121 H 117 H 120 H Random Glucose Calcium Total Bilirubin AST ALT Alkaline Phosphatase Troponin I Total Protein Albumin Globulin Albumin/Globulin Ratio 11/28/17 11/28/17 11/28/17 10:59 16:01 17:52 WBC 8.5 RBC 4.77 Hgb 12.4 Hct 38.5 MCV 80.7 MCH 26.0 L MCHC 32.3 L RDW 15.2 H Plt Count 247 Sodium Potassium Chloride Carbon Dioxide Anion Gap BUN Creatinine Est GFR ( Amer) Est GFR (Non-Af Amer) POC Glucose (mg/dL) 130 H 145 H Random Glucose Calcium Total Bilirubin AST ALT Alkaline Phosphatase Troponin I Total Protein Albumin Globulin Albumin/Globulin Ratio 11/28/17 11/28/17 11/28/17 17:52 20:32 22:01 WBC RBC Hgb Hct MCV MCH MCHC RDW Plt Count Sodium 137 137 Potassium 3.6 4.1 Chloride 93 L 93 L Carbon Dioxide 27 25 Anion Gap 21 H 23 H BUN 17 19 Creatinine 7.7 H* D 8.2 H* Est GFR ( Amer) 9 8 Est GFR (Non-Af Amer) 7 7 POC Glucose (mg/dL) 124 H Random Glucose 149 H 153 H Calcium 10.8 H 11.4 H Total Bilirubin 0.9 AST 42 ALT 18 L D Alkaline Phosphatase 296 H D Troponin I 0.0330 Total Protein 9.0 H Albumin 4.5 Globulin 4.5 H Albumin/Globulin Ratio 1.0 11/29/17 11/29/17 11/29/17 05:57 10:37 15:52 WBC RBC Hgb Hct MCV MCH MCHC RDW Plt Count Sodium Potassium Chloride Carbon Dioxide Anion Gap BUN Creatinine Est GFR ( Amer) Est GFR (Non-Af Amer) POC Glucose (mg/dL) 165 H 158 H 185 H Random Glucose Calcium Total Bilirubin AST ALT Alkaline Phosphatase Troponin I Total Protein Albumin Globulin Albumin/Globulin Ratio Microbiology 11/24/17 16:37 Blood-Thru Central Line Blood Culture - Final NO GROWTH AFTER 5 DAYS 11/22/17 15:15 Peritoneal Fluid Gram Stain - Final 11/22/17 15:15 Peritoneal Fluid Body Fluid Culture - Final No growth. 11/19/17 23:10 Blood Blood Culture - Final NO GROWTH AFTER 5 DAYS 11/19/17 23:10 Blood Blood Culture - Final NO GROWTH AFTER 5 DAYS 11/19/17 23:10 Blood Gram Stain - Final TEST NOT PERFORMED 11/19/17 20:19 Blood Blood Culture - Final NO GROWTH AFTER 5 DAYS 11/19/17 20:19 Blood Gram Stain - Final TEST NOT PERFORMED 11/20/17 10:30 Blood-Thru Central Line S.aureus & Coag-Neg Staph PNA FISH - Final 11/20/17 10:30 Blood-Thru Central Line Blood Culture - Final Coagulase Neg Staphylococcus 11/20/17 10:30 Blood-Thru Central Line Gram Stain - Final 11/20/17 10:00 Urine Urine Culture - Final No Growth (<1,000 CFU/ML) Accession No. : [id number] Patient Name / ID : KYM [id number] / [id number] Exam Date : 11/28/2017 11:50:46 ( Approved ) Study Comment : Sex / Age : M / 52Y Creator : Jose Mobley MD Dictator : Jose Mobley MD Rapid Extractor Operator : Butter Production Supervisor : Jose Mobley MD Approver2 : Report Date : 11/28/2017 13:11:50 My Comment : Date of service: 11/28/2017 PROCEDURE: CT Abdomen and Pelvis with contrast HISTORY: Lethargy, renal failure and abdominal pain. COMPARISON: 11/22/2017 CT abdomen pelvis. TECHNIQUE: Unenhanced study. Neither oral nor intravenous contrast administered. Radiation dose: Total exam DLP = 797.92 mGy-cm. This CT exam was performed using one or more of the following dose reduction techniques: Automated exposure control, adjustment of the mA and/or kV according to patient size, and/or use of iterative reconstruction technique. FINDINGS: LOWER THORAX: Unremarkable. LIVER: Unremarkable. No gross lesion or ductal dilatation. GALLBLADDER AND BILE DUCTS: Unremarkable. PANCREAS: Unremarkable. No gross lesion or ductal dilatation. SPLEEN: Unremarkable. ADRENALS: Unremarkable. No mass. KIDNEYS AND URETERS: Stable findings with respect to [place] kidneys and transplanted kidney in the right lower quadrant/ pelvis. VASCULATURE: Unremarkable. No aortic aneurysm. BOWEL: Diffusely dilated small bowel likely ileus. Head in distention of the stomach identifies mucosal in duodenal thickness compatible with gastritis, duodenitis. APPENDIX: Normal appendix. PERITONEUM: Unremarkable. No free fluid. No free air. LYMPH NODES: Unremarkable. No enlarged lymph nodes. BLADDER: Unremarkable. REPRODUCTIVE: Unremarkable. BONES: No acute fracture. OTHER FINDINGS: Stable position of peritoneal dialysis catheter. IMPRESSION: Mildly dilated small bowel a new finding compared to prior study likely ileus. Gastritis/enteritis, mild. Otherwise no interval change. Assessment and Plan (1) Fever in adult Status: Acute (2) AV shunt malfunction Status: Acute - Assessment and Plan (Free Text) Assessment: A/P- 52 year old male with ESRD oN HD who was recently d/c to [place] readmitted with low garde fever and AMS. pd used but pt. seem sto have problems with it as per renal doctor has remained afebrile normal wbc count Brain CT - as per report negative CXR- no active disease as per report. wrist xray- negative as per report abd /pelvic CT- no evidence of peritonitis as per report, mild gastritis/ enteritis as per report and ileus blood cx from HD line 11/20/2017- coag neg staph x 1 ( most likely contaminant 0 blood cx from 11/19/2017- neg x 3 (peripheral) blood cx from 11/24/2017 from HD catheter- negative peritoneal fluid cx-neg TTE- no vegetations as per report read by chain puller. plan- has completed 10 days of IV teflaro ( ceftaroline). d/c this today. PD dialysis management as per renal doctor. if high suspicion of peritonitis then send peritoneal fluid for cell count. if patient develops any fever would panculture and may need to have PD cath removed and if abx via PD dialsyis is considered then would advise ceftazidime . All above d/c at length.
--- NOTE | 2017-11-30 13:18 | PCM.SURG1 ---
Surgeon's Initial Post Op Note - Surgeon's Notes Surgeon: Home Prather MD Gym Attendant: NONE Type of Anesthesia: Local Pre-Operative Diagnosis: ESRD, central venous occlusion Operative Findings: US right neck shows no IJV. Left neck IJV is patent. However, subclavian vein stent extends across the IJV. Patent left femoral vein. Post-Operative Diagnosis: ESRD Operation Performed: HD catheter placement left femoral vein, 35 cm. Tip in the IVC. Specimen/Specimens Removed: None Estimated Blood Loss: EBL {In ML}: 5 Blood Products Given: N/A Drains Used: No Drains Post-Op Condition: Fair Date of Surgery/Procedure: 11/30/17 Time of Surgery/Procedure: 13:10
[2017-11-30 13:30] VITALS: PULSE 98
[2017-11-30 16:29] VITALS: TEMP 97.8; O2SAT 96
[2017-11-30 16:46] VITALS: BP 103/72
[2017-11-30 18:34] LABS: HEMOGLOBIN 13.9 g/dL (12.0-18.0); MEAN CELL VOLUME 80.9 fl (80.0-94.0); MEAN CORPUSCULAR HEMOGLOBIN 26.2 pg (27.0-31.0); MEAN CORPUSCULAR HGB CONC 32.4 g/dL (33.0-37.0); RBC 5.28 Mil/uL (4.40-5.90); RED CELL DISTRIBUTION WIDTH 16.1 % (11.5-14.5); WHITE BLOOD COUNT 7.4 K/uL (4.8-10.8)
[2017-11-30 18:55] LABS: CALCIUM 13.3 mg/dL (8.4-10.2)
[2017-11-30 18:56] LABS: ALB/GLOB RATIO 1.1 (1.0-2.1); ALBUMIN 4.4 g/dL (3.5-5.0)
--- NOTE | 2017-11-30 23:33 | CP.PCM.PRO ---
Pronouncement of Note - Clinical Findings Physical Exam: No Response Verbal/Painful Stimuli, Absent Peripheral Pulses{ Carotid & Femoral}, Absent Heart & Breath Sounds, No Pupillary Light Reflex, No Corneal Reflex, Pupils Fixed & Dilated, Absence of Vital Signs - Pronouncement Time Time of Pronouncement of : 22:40 Additional Comments: I was called to DRY FINISHER on this patient at approximately 22: 25. Upon arrival, the patient was found to be acutely altered from his baseline. Nursing staff reported systolic blood pressure was 58. Patient was noted to have Chinedu- Carpenter respirations and was unresponsive to verbal or noxious stimuli. The patient was immediately given normal saline bolus of 500cc. The next of kin, Mrs. Zeynep Appiah (mother) was just outside the room at the time of the DRY FINISHER and stated that the patient was to be DNR/DNI verbally both to me and to nursing staff. The patient was noted to go into PEA/asystole approximately 5 minutes into the DRY FINISHER and never regained his pulse. The patient at 22:40, 11/30/2017. - Notifications Pronouncement Notifications: Family Notified, Atending Notified (Dr. Warren was notified by myself. ) - [place] [id number]
[2017-12-01] MEDS ORDERED: Verapamil 120 mg ER Tab PO SCH (09:00)
--- NOTE | 2017-12-01 20:48 | DS ---
REASON FOR ADMISSION: This is a 52-year-old male with history of endstage renal disease, on hemodialysis, was in subacute rehabilitation when he developed fever and lethargy. The patient was admitted for fever and lethargy. COURSE OF HOSPITALIZATION: The patient was initially evaluated in the emergency room and admitted for possible sepsis secondary to bacteremia. The patient had an ID consult done by Dr. Joyce and Renal consult done by Dr. Pinto. The patient was placed on ceftaroline IV antibiotics, and he also was suspected to have peritonitis secondary to the insertion of the peritoneal catheter. The patient was administered vancomycin through peritoneal catheter by filterer. The patient was in need for pain medications due to back pain, abdominal pains and rest pain. The patient was on multiple medications including anticoagulants and antiplatelets for the coronary artery disease. The patient was INTERN BRAND due to hypotension and at the time of the INTERN BRAND, the next of kin made him DNR and DNI, and the patient at 10:40 p.m. on 11/30/2017. FINAL DIAGNOSES: Sepsis; bacteremia; endstage renal disease, on hemodialysis; paroxysmal atrial fibrillation; coronary artery disease; hypertension. Mildred Warren MD
== END 2017-12-01 01:45 | DRG 314 ==
LOC: H.ER 18:53 → INTOOBSV 21:53 → OBSVTOIN 21:53 → H.ERHOLD 21:53 → H.MEDSURG1 11-20 13:51
PROVIDERS: ADMIT Internal Medicine; ATTEND Internal Medicine
PROC: 5A1D70Z Performance of Urinary Filtration, Intermittent, Less than 6 Hours Per Day (ICD-10-PCS; principal; 2017-11-22)
PROC: 06HN33Z Insertion of Infusion Device into Left Femoral Vein, Percutaneous Approach (ICD-10-PCS; 2017-11-30)
DX: T82.7XXA Infection and inflammatory reaction due to other cardiac and vascular devices, implants and grafts, initial encounter (principal); G93.41 Metabolic encephalopathy; A41.1 Sepsis due to other specified staphylococcus; R65.20 Severe sepsis without septic shock; N18.6 End stage renal disease; K65.9 Peritonitis, unspecified; I12.0 Hypertensive chronic kidney disease with stage 5 chronic kidney disease or end stage renal disease; K56.7 Ileus, unspecified; E11.22 Type 2 diabetes mellitus with diabetic chronic kidney disease; E78.00 Pure hypercholesterolemia, unspecified; I48.0 Paroxysmal atrial fibrillation; L89.312 Pressure ulcer of right buttock, stage 2; Z79.01 Long term (current) use of anticoagulants; Z99.2 Dependence on renal dialysis; Z98.61 Coronary angioplasty status; I25.10 Atherosclerotic heart disease of native coronary artery without angina pectoris; F41.9 Anxiety disorder, unspecified; F32.9 Major depressive disorder, single episode, unspecified; M19.90 Unspecified osteoarthritis, unspecified site; K21.9 Gastro-esophageal reflux disease without esophagitis; K29.70 Gastritis, unspecified, without bleeding; M81.0 Age-related osteoporosis without current pathological fracture; G47.30 Sleep apnea, unspecified; Z88.6 Allergy status to analgesic agent; Z88.1 Allergy status to other antibiotic agents; E87.5 Hyperkalemia; D63.1 Anemia in chronic kidney disease; M10.9 Gout, unspecified; F40.240 Claustrophobia; M25.531 Pain in right wrist; Y83.2 Surgical operation with anastomosis, bypass or graft as the cause of abnormal reaction of the patient, or of later complication, without mention of misadventure at the time of the procedure; Z89.431 Acquired absence of right foot; R62.7 Adult failure to thrive; Z66 Do not resuscitate; T40.605A Adverse effect of unspecified narcotics, initial encounter; I46.9 Cardiac arrest, cause unspecified